=== PATIENT | male | born 1960 | race Caucasian/White ===

== ENCOUNTER 2018-06-28 14:36 | Observation (INO) | payer BC, SELFPAY ==
[2018-06-28] VITALS (11 sets, daily range): BP systolic 145–160; BP diastolic 75–99; PULSE 53–70; RESP 14–18; TEMP 36.2–36.8; O2SAT 96–99; BMI 31.7; BMI 33.0
--- NOTE | 2018-06-28 14:50 | CM.ED ---
SOCIAL WORK NOTE RESPONDED TO STROKE ALERT. PATIENT SITTING UP IN BED TALKING WITH PHYSICIAN AT THIS TIME. NO FAMILY PRESENT. THIS WORKER TO REMAIN AVAILABLE FOR NEEDS. 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
--- NOTE | 2018-06-28 14:57 | CT_ITS ---
STUDY: CT BRAIN WITHOUT CONTRAST REASON FOR EXAM: Male, 58 years old. Left-sided tinnitus and confusion. RADIATION DOSAGE (If Supplied By Facility): CTDIvol = ( 60.81 ) mGy, DLP = ( 1067.08 ) mGycm TECHNIQUE: Transaxial CT imaging of the brain was performed without administration of intravenous contrast material. Individualized dose optimization techniques were used for this CT. COMPARISON: No relevant priors. FINDINGS: Normal soft tissue structures. Normal calvarium. Normal size ventricles and extra-axial spaces for the patient's age. Normal white matter tracts of the cerebral hemispheres. Normal basal ganglia and thalami. Normal brainstem. Normal cerebellum. There is no intracranial hemorrhage. There are no findings of an acute ischemic infarction. Normal visualized paranasal sinuses. CT/Brain/Head without Contrast IMPRESSION: Normal unenhanced CT scan of the brain. N.B. : The above information has been verbally conveyed by Mo Franklin to Sandip Alan on 06/28/2018 15:27:34 (ET). Electronically Signed: Mo Franklin, at 15:28 EDT , Service support ,
--- NOTE | 2018-06-28 14:57 | EKG12_ITS ---
Test Reason : NEURO Blood Pressure : / mmHG Vent. Rate : 054 BPM Atrial Rate : 054 BPM P-R Int : 206 ms QRS Dur : 106 ms QT Int : 448 ms P-R-T Axes : 034 066 021 degrees QTc Int : 424 ms Sinus bradycardia Otherwise normal ECG Confirmed by RADU WELSH, MYKEL ([id number]), editor index LOLA MOFFETT ([id number]) on 07/01/2018 11:16:07 AM Referred By: WING Confirmed By:MYKEL LOVELACE MD
--- NOTE | 2018-06-28 14:58 | ED.VISSUMM ---
- ER Visit Summary Date of Service: 06/28/18 Chief Complaint: Difficulty speaking, numbness in right arm History of Present Illness: The patient is a 58 M with history of hypertension and coronary vascular disease presents to the emergency department with TIA symptoms. The patient states that he was at work this afternoon. He states that he noticed some numbness and tingling in his right hand and his arm. He states when he would move around it seemed to get better. Shortly thereafter, he had a sudden onset expressive aphasia. He states he knew what he wanted to say but was just having difficulty getting the words out. He states he had difficulty recognizing numbers. He was also having some ringing in his ears. He states he does have tinnitus at baseline, but states it was worse. He tried to follow with his primary care, but was referred to the emergency department. On arrival, the patient symptoms have basically resolved. He denies any prior history of stroke. He is otherwise been in his normal state of health. Physical Examination: Vital signs reviewed General: Well-nourished, well-developed Head: Normocephalic, atraumatic Eyes: Pupils equal and reactive, extraocular muscles intact Neck, supple, no lymphadenopathy Heart: Regular rate and rhythm Respiratory: No distress, clear bilaterally Abdomen: Soft, nontender, nondistended, no peritoneal signs Back: Nontender Extremities: Nontender, no edema, no cords Skin: Normal color no rash Neuro: Alert and oriented, no focal or lateralizing deficits Test Results: [] Emergency Department Course and Treatment: The patient has an NIH of 0 on arrival. However, his symptoms are concerning for TIA. His symptoms have totally resolved. Head CT was unremarkable. Chest x-ray was unremarkable. The patient is thrombocytopenic which does appear to be new, however the only labs I have are from 4 years ago. He denies history of alcohol abuse. He is not on any new medications. I am unsure of the etiology of his thrombus cytopenia. Given the patient's age, risk factors, and focal neurologic symptoms I do feel that he would benefit from a TIA workup. Patient was discussed with the hospitalist. Treatment Plan: [] Disposition: Admit Impression: 1. TIA 2. Expressive aphasia-resolved This note was generated with [employer] software. It may contain incorrect words, spelling, and punctuation that were not noted in review of the chart prior to signing ED Disposition - Plan for ED Patient: Referrals: Devika Arcos MD [Primary Care Provider] -
--- NOTE | 2018-06-28 15:15 | RAD_ITS ---
STUDY: X-RAY CHEST REASON FOR EXAM: Male, 58 years old. Headaches. Slurred speech. TECHNIQUE: Single AP portable view of the chest. COMPARISON: None. FINDINGS: EKG electrodes are seen. Hyperinflation. The lungs are clear. There is no demonstrated pleural abnormality. Normal size heart. Normal mediastinum and kyle. Normal visualized pulmonary arteries. There is atherosclerotic tortuosity of the aortic arch and descending thoracic aorta. There are diffuse degenerative changes of the visualized thoracic spine. Normal visualized ribs, clavicles, and shoulders. There is no demonstrated abnormality of the visualized soft tissue structures of the upper abdomen. RAD/Chest 1 View IMPRESSION: Normal x-ray examination of the chest. Electronically Signed: Mo Franklin, at 15:39 EDT , Service support ,
[2018-06-28 15:19] LABS: Anion Gap 5 (5-15); BUN 19 mg/dL (7-18); BUN/Creat Ratio 19.5 RATIO (10-20); Calcium,Total 9.1 mg/dL (8.5-10.1); Chloride 105 mmol/L (98-107); Creatinine, Serum 0.97 mg/dL (0.70-1.30); EST Glomerular Filtration Rate 84 mL/min (>60); Est Glom Filt Rate - Afr Amer 102 mL/min (>60); Estimated Creatinine Clearance 83.01 ml/min; Glucose 84 mg/dL (74-106); Potassium 3.8 mmol/L (3.5-5.1); Sodium Level 139 mmol/L (136-145)
[2018-06-28 15:50] LABS: Bedside Glucose 75 mg/dL (70-110)
[2018-06-28 15:50] LABS: Hematocrit 38.5 % (40-54); Hemoglobin 13.1 g/dl (13.0-16.5); Mean Corpuscular Hgb 29.7 pg (27.0-32.0); Mean Corpuscular Volume 87.3 fL (80-94); Mean Platelet Vol. 10.2 fl (6.2-12.0); Platelet Count 51 K/mm3 (150-450); RBC Distribution Width CV 13.3 % (11.6-14.6); RBC Distribution Width SD 42.7 fl (35.1-43.9); Red Blood Count 4.41 M/mm3 (4.6-6.2); White Blood Count 7.5 K/mm3 (4.4-11.0)
[2018-06-28 15:53] LABS: Scan Indicated on CBC? Y/N NO
[2018-06-28 16:03] LABS: Prothrombin Time (Protime)PT. 13.4 SECONDS (11.7-14.9)
[2018-06-28 16:04] LABS: Partial Thromboplast Time 26.1 Seconds (24.1-36.2)
--- NOTE | 2018-06-28 16:28 | PCM.HP.STD ---
<Toño Varela - Last Filed: 06/28/18 16:28> Problem List (1) CVA (cerebral vascular accident) Status: Acute (2) CAD (coronary artery disease) Status: Chronic (3) IBAN (obstructive sleep apnea) Status: Chronic (4) Thrombocytopenia Status: Chronic (5) Hyperlipidemia Status: Chronic (6) Hypertension Status: Chronic History of Present Illness Date of Admission: 06/28/18 Chief Complaint: tingling right arm The patient is a 58 year old M with pmhx of CAD with stents in , IBAN on CPAP qhs, HTN, HLD, tinnitus, who presented to the ER with chief complaint of tingling in his right arm. This began about 1300 today while out driving running errands. He felt tingling and numbness without weakness travel from his fingertips up his forearm to his mid bicep. He then drove to the pharmacy and was filling out a form of personal information and could not fill out the form. He wrote his name, and everything else he knew what he wanted to write but could not write it, and felt that the words and letters were jumping around. He also could not speak a full sentence, also reporting that he knew what he wanted to say but the words were not coming out correctly. He denied slurring. He had a mild APONTE located on top of his head. He denied dizziness. His tinnitus may be somewhat worse than normal. He denies weakness. He denies any other affected part of his body. While in the ER about 1413 his symptoms suddenly and completely resolved. No complaints at this time. [] Past Medical History Past Medical History (Chronic Problems): Chronic Problems (Last Reviewed 10/05/17 @ 10:16 by Alexus Downey) CAD (coronary artery disease) (Chronic) IBAN (obstructive sleep apnea) (Chronic) Thrombocytopenia (Chronic) Presence of stent in coronary artery (Chronic ~08/2008) PTCA/BMS to distal RCA 08/2008 @ [facility] Hyperlipidemia (Chronic) Atherosclerotic heart disease of [place] coronary artery without angina pectoris (Chronic) PTCA/BMS to distal RCA 08/2008 @ [facility] Hypertension (Chronic) Medical History: Medical History (Last Reviewed 10/05/17 @ 10:16 by Alexus Downey) Hyperlipidemia (Chronic) E78.5 Atherosclerotic heart disease of [place] coronary artery without angina pectoris (Chronic) I25.10 PTCA/BMS to distal RCA 08/2008 @ [facility] History of acute inferior wall myocardial infarction (Acute) I25.2 Hypertension (Chronic) I10 IBAN (obstructive sleep apnea) G47.33 Allergies No Known Allergies Allergy (Verified 06/28/18 14:39) Home Medications: Ambulatory Orders Medication Instructions Recorded aspirin 81 mg tablet,delayed 81 mg PO DAILY 09/04/17 release carvedilol 25 mg tablet 25 mg PO BID 09/04/17 Clopidogrel Bisulfate [Clopidogrel] 75 mg PO DAILY 06/28/18 Losartan/Hydrochlorothiazide 1 tab PO DAILY 06/28/18 [Losartan-Hctz 100-25 mg Tab] Surgical History: Surgical History (Last Reviewed 10/05/17 @ 10:16 by Alexus Downey) Presence of stent in coronary artery (Chronic) Onset Date: ~08/2008 Z95.5 PTCA/BMS to distal RCA 08/2008 @ [facility] Postsurgical percutaneous transluminal coronary angioplasty (PTCA) status Onset Date: ~08/2008 Z98.61 PTCA/BMS to distal RCA 08/2008 @ [facility] History of left knee surgery Z98.890 History of right knee surgery Z98.890 Surgical History: - - BL Knee arthroscopy, septoplasty Lives: With Family Smoking Status: Never smoker Tobacco Use: Non-smoker Alcohol: Occasional Drugs: None - *Family History Paternal Family History: Family History (Last Reviewed 10/05/17 @ 10:16 by Alexus Downey) Father CAD (coronary artery disease) Myocardial infarction, Onset Age: 42 Sister Hypertension History Items: Heart Disease Maternal Family History: Family History (Last Reviewed 10/05/17 @ 10:16 by Alexus Downey) Father CAD (coronary artery disease) Myocardial infarction, Onset Age: 42 Sister Hypertension History Items: Cancer - colon Review of Systems Constitutional: Denies: Chills, Fever, Weight Change Eyes: Denies: Blurred vision, Double vision HEENT: Reports: Head Aches, - - ringing in ears. Denies: Difficulty Swallowing, Hard of Hearing, Sinus Congestion, Sinus Drainage, Visual Changes Cardiovascular: Denies: Chest Pain, Palpitations Respiratory: Denies: Cough, Shortness of breath at rest, Sputum production Gastrointestinal: Denies: Abdominal Pain, Nausea, Vomiting Genitourinary: Denies: Dysuria Musculoskeletal: Denies: Joint Pain, Joint Tenderness Skin: Denies: Rash, Wounds Neurological: Reports: Change in Speech, Headaches, Numbness, Tingling, - - visual change - words jumping around, also new difficulty writing. Denies: Balance problems, Blurred vision, Double vision, Slurred speech, Confusion, Difficulty swallowing, Focal weakness, Incoordination, Tremor, Seizures Psychiatric: Denies: Anxiety, Depression, Homicidal Ideations, Suicidal Ideations Hematologic/ Lymphatic: Denies: Easy Bruising, Easy Bleeding VTE Information - Inpt Only VTE Present on Admission: No VTE Mechan Device Prophylaxis: None VTE Pharm Prophylaxis ordered?: Yes Patient Problems: Active and Suspected Problems (Last Reviewed 10/05/17 @ 10:16 by Alexus Downey) CVA (cerebral vascular accident) (Acute) Dysarthria (Acute) Paresthesia of right arm (Acute) - Physical Exam General: Alert, Oriented x3, Cooperative HEENT: Atraumatic, PERRLA, EOMI, Normocephalic Neck: Supple, No JVD, Negative Carotid Bruits Lungs: Clear to auscultation, Normal air movement Cardiovascular: Regular rate, No murmurs Abdomen: Bowel Sounds Present, Soft, Non Tender Extremities: No edema, Capillary Refill Less than 3 Seconds Skin: No rashes, No breakdown Musculoskeletal: No Tenderness to Palpation of Joints or Extremities Neurological: Cranial nerves II-XII grossly intact, - - 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 Psych/Mental Status: Normal Affect, Appropriate, Alert and oriented to time, place, person, mood and affect Vital Signs Temp Pulse Resp BP Pulse Ox 97.2 F L 55 L 16 154/99 H 98 06/28/18 14:36 06/28/18 16:00 06/28/18 16:00 06/28/18 16:00 06/28/18 16:00 Oxygen Delivery Method Room Air Weight: 215 lb Body Mass Index (BMI) 31.7 Finger Stick Blood Glucose 75 Laboratory Tests Past 24 Hrs 06/28/18 06/28/18 06/28/18 14:50 14:50 14:50 WBC Cancelled Corrected WBC Cancelled RBC Cancelled Hgb Cancelled Hct Cancelled MCV Cancelled MCH Cancelled MCHC Cancelled RDW Cancelled RDW Differential Cancelled Plt Count Cancelled MPV Cancelled Immature Gran % (Auto) Cancelled Neut % (Auto) Cancelled Lymph % (Auto) Cancelled [place] % (Auto) Cancelled Eos % (Auto) Cancelled Baso % (Auto) Cancelled Immature Gran # (Auto) Cancelled Absolute Neuts (auto) Cancelled Absolute Lymphs (auto) Cancelled Absolute Monos (auto) Cancelled Total Counted Cancelled Neutrophils % (Manual) Cancelled Band Neutrophils % Cancelled Lymphocytes % (Manual) Cancelled Monocytes % (Manual) Cancelled Eosinophils % (Manual) Cancelled Basophils % (Manual) Cancelled Metamyelocytes % Cancelled Myelocytes % Cancelled Promyelocytes % Cancelled Blast Cells % Cancelled Plasma Cell % (Manual) Cancelled Other Cells % Cancelled Lymphocytes # Cancelled Nucleated RBCs/100 WBC Cancelled Differential Comment Cancelled Diff Path Review Cancelled Hypersegmented Neuts Cancelled Atypical Lymphocytes Cancelled Reactive Lymphocytes Cancelled Smudge Cells Cancelled Eosinophilia # Cancelled Basophilia # Cancelled Toxic Granulation Cancelled Dohle Bodies Cancelled Johnny Rods Cancelled Platelet Estimate Cancelled Plt Morphology Comment Cancelled RBC Morphology Cancelled Polychromasia Cancelled Hypochromasia Cancelled Poikilocytosis Cancelled Basophilic Stippling Cancelled Anisocytosis Cancelled Microcytosis Cancelled Macrocytosis Cancelled Spherocytes Cancelled Sickle Cells Cancelled Target Cells Cancelled Tear Drop Cells Cancelled Ovalocytes Cancelled Stomatocytes Cancelled [place] Bodies Cancelled Jasmeet Cells Cancelled Bite Cells Cancelled Acanthocytes (Spur) Cancelled Rouleaux Cancelled Schistocytes Cancelled PT Cancelled INR Cancelled APTT Cancelled Sodium 139 Potassium 3.8 Chloride 105 Carbon Dioxide 29.0 Anion Gap 5 BUN 19 H Creatinine 0.97 Estim Creat Clear Calc 83.01 Est GFR (MDRD) Af Amer 102 Est GFR (MDRD) Non-Af 84 BUN/Creatinine Ratio 19.5 Glucose 84 Calcium 9.1 Troponin I < 0.015 06/28/18 06/28/18 15:40 15:40 WBC 7.5 Corrected WBC RBC 4.41 L Hgb 13.1 Hct 38.5 L MCV 87.3 MCH 29.7 MCHC 34.0 RDW 13.3 RDW Differential 42.7 Plt Count 51 L MPV 10.2 Immature Gran % (Auto) Neut % (Auto) Lymph % (Auto) [place] % (Auto) Eos % (Auto) Baso % (Auto) Immature Gran # (Auto) Absolute Neuts (auto) Absolute Lymphs (auto) Absolute Monos (auto) Total Counted Neutrophils % (Manual) Band Neutrophils % Lymphocytes % (Manual) Monocytes % (Manual) Eosinophils % (Manual) Basophils % (Manual) Metamyelocytes % Myelocytes % Promyelocytes % Blast Cells % Plasma Cell % (Manual) Other Cells % Lymphocytes # Nucleated RBCs/100 WBC Differential Comment Diff Path Review Hypersegmented Neuts Atypical Lymphocytes Reactive Lymphocytes Smudge Cells Eosinophilia # Basophilia # Toxic Granulation Dohle Bodies Johnny Rods Platelet Estimate Plt Morphology Comment RBC Morphology Polychromasia Hypochromasia Poikilocytosis Basophilic Stippling Anisocytosis Microcytosis Macrocytosis Spherocytes Sickle Cells Target Cells Tear Drop Cells Ovalocytes Stomatocytes G[place] Bodies Jasmeet Cells Bite Cells Acanthocytes (Spur) Rouleaux Schistocytes PT 13.4 INR 1.0 APTT 26.1 Sodium Potassium Chloride Carbon Dioxide Anion Gap BUN Creatinine Estim Creat Clear Calc Est GFR (MDRD) Af Amer Est GFR (MDRD) Non-Af BUN/Creatinine Ratio Glucose Calcium Troponin I POC Glucose 06/28/18 15:38 POC Glucose 75 Assessment/Plan All Active Problems (Last Reviewed 10/05/17 @ 10:16 by Alexus Downey) CVA (cerebral vascular accident) (Acute) Dysarthria (Acute) Paresthesia of right arm (Acute) History of acute inferior wall myocardial infarction (Acute) 1. CVA - concern for TIA, symptoms as above fully resolved at this time. CT brain negative. Obtain MRI, MRA head/neck. Echo in AM. Maintain on tele. Pt is already on aspirin and plavix. start statin. hold antihypertensives. PTOTST evals. 2. Thrombocytopenia - unclear etiology. obtain most recent labs from PCP. 3. CAD - stents in 11/01. on asa/plavix, coreg, losartan 4. HTN - as above. 5. IBAN - continue nightly CPAP 6. HLD - start statin. DVT ppx: lovenox -monitor platelets. This patient was seen by Toño Varela PA-C under the supervision of Dr. Shipley. <Dilip Shipley - Last Filed: 06/28/18 17:25> Problem List (1) Dysarthria Status: Acute (2) Paresthesia of right arm Status: Acute History of Present Illness Chief Complaint: right arm paresthesia. dysarthria The patient is a 58 year old M who was driving his car and after he got out of his car noticed that he was a right upper extremity. The numbness extended from his elbow to his fingers. Fingers involved were his third and fourth finger. He was able to shake it out and the symptoms resolved. Afterwards, patient was at work and just was not feeling well and just feeling off. 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 Went to sign himself into an urgent care center and just could not figure that out and so was sent to the emergency room. Symptoms have resolved. Patient underwent a stroke workup that was unremarkable. Patient is never had symptoms such as this in the past. [] Past Medical History Medical History: Medical History (Last Reviewed 06/28/18 @ 17:21 by Dilip Shipley DO) Hyperlipidemia (Chronic) E78.5 Atherosclerotic heart disease of [place] coronary artery without angina pectoris (Chronic) I25.10 PTCA/BMS to distal RCA 08/2008 @ [facility] History of acute inferior wall myocardial infarction (Acute) I25.2 Hypertension (Chronic) I10 IBAN (obstructive sleep apnea) G47.33 Allergies No Known Allergies Allergy (Verified 06/28/18 14:39) Surgical History: Surgical History (Last Reviewed 06/28/18 @ 17:21 by Dilip Shipley DO) Presence of stent in coronary artery (Chronic) Onset Date: ~08/2008 Z95.5 PTCA/BMS to distal RCA 08/2008 @ [facility] Postsurgical percutaneous transluminal coronary angioplasty (PTCA) status Onset Date: ~08/2008 Z98.61 PTCA/BMS to distal RCA 08/2008 @ [facility] History of left knee surgery Z98.890 History of right knee surgery Z98.890 Lives: With Family Smoking Status: Never smoker Tobacco Use: Non-smoker Alcohol: Occasional Drugs: None - *Family History Paternal Family History: Family History (Last Reviewed 06/28/18 @ 17:21 by Dilip Shipley DO) Father CAD (coronary artery disease) Myocardial infarction, Onset Age: 42 Sister Hypertension Maternal Family History: Family History (Last Reviewed 06/28/18 @ 17:21 by Dilip Shipley DO) Father CAD (coronary artery disease) Myocardial infarction, Onset Age: 42 Sister Hypertension Review of Systems Constitutional: Denies: Chills, Fever, Weight Change Eyes: Denies: Double vision HEENT: Reports: Head Aches, -. Denies: Difficulty Swallowing, Hard of Hearing, Sinus Congestion, Sinus Drainage, Visual Changes Cardiovascular: Denies: Chest Pain, Palpitations Respiratory: Denies: Cough, Shortness of breath at rest, Sputum production Gastrointestinal: Denies: Abdominal Pain, Nausea, Vomiting Genitourinary: Denies: Dysuria Musculoskeletal: Denies: Joint Pain, Joint Tenderness Skin: Denies: Rash, Wounds Neurological: Reports: Change in Speech, Headaches, Numbness, Tingling, -. Denies: Balance problems, Blurred vision, Double vision, Slurred speech, Confusion, Difficulty swallowing, Focal weakness, Incoordination, Tremor, Seizures Psychiatric: Denies: Anxiety, Depression, Homicidal Ideations, Suicidal Ideations Hematologic/ Lymphatic: Denies: Easy Bruising, Easy Bleeding VTE Information - Inpt Only VTE Present on Admission: No VTE Mechan Device Prophylaxis: SCD's VTE Pharm Prophylaxis ordered?: No - Physical Exam General: Alert, Cooperative, No apparent distress HEENT: Atraumatic, PERRLA, EOMI, Normocephalic Oral: Moist Mucosa, No Gingival or Mucosal Lesions/ Ulcerations Neck: No Nodes, Thyroid Normal Size and Texture Lungs: Clear to auscultation, Normal air movement, No rhonchi, No wheeze Cardiovascular: Regular rate, Regular Rhythm, Normal S1, Normal S2, No murmurs Abdomen: Bowel Sounds Present, Soft, Non Tender, Non-Distended Extremities: No edema, No Calf Tenderness Skin: No rashes, No breakdown Musculoskeletal: No Tenderness to Palpation of Joints or Extremities, No Muscle Wasting Neurological: Cranial nerves II-XII grossly intact, Motor Exam 5/5 strength throughout, Coordination normal, - Psych/Mental Status: Normal Affect, Appropriate, Alert and oriented to time, place, person, mood and affect Vital Signs Temp Pulse Resp BP Pulse Ox 36.2 C L 55 L 16 154/99 H 98 06/28/18 14:36 06/28/18 16:00 06/28/18 16:00 06/28/18 16:00 06/28/18 16:00 Oxygen Delivery Method Room Air Weight: 97.522 kg Body Mass Index (BMI) 31.7 Finger Stick Blood Glucose 75 Laboratory Tests Past 24 Hrs 06/28/18 06/28/18 06/28/18 14:50 14:50 14:50 WBC Cancelled Corrected WBC Cancelled RBC Cancelled Hgb Cancelled Hct Cancelled MCV Cancelled MCH Cancelled MCHC Cancelled RDW Cancelled RDW Differential Cancelled Plt Count Cancelled MPV Cancelled Immature Gran % (Auto) Cancelled Neut % (Auto) Cancelled Lymph % (Auto) Cancelled [place] % (Auto) Cancelled Eos % (Auto) Cancelled Baso % (Auto) Cancelled Immature Gran # (Auto) Cancelled Absolute Neuts (auto) Cancelled Absolute Lymphs (auto) Cancelled Absolute Monos (auto) Cancelled Total Counted Cancelled Neutrophils % (Manual) Cancelled Band Neutrophils % Cancelled Lymphocytes % (Manual) Cancelled Monocytes % (Manual) Cancelled Eosinophils % (Manual) Cancelled Basophils % (Manual) Cancelled Metamyelocytes % Cancelled Myelocytes % Cancelled Promyelocytes % Cancelled Blast Cells % Cancelled Plasma Cell % (Manual) Cancelled Other Cells % Cancelled Lymphocytes # Cancelled Nucleated RBCs/100 WBC Cancelled Differential Comment Cancelled Diff Path Review Cancelled Hypersegmented Neuts Cancelled Atypical Lymphocytes Cancelled Reactive Lymphocytes Cancelled Smudge Cells Cancelled Eosinophilia # Cancelled Basophilia # Cancelled Toxic Granulation Cancelled Dohle Bodies Cancelled Johnny Rods Cancelled Platelet Estimate Cancelled Plt Morphology Comment Cancelled RBC Morphology Cancelled Polychromasia Cancelled Hypochromasia Cancelled Poikilocytosis Cancelled Basophilic Stippling Cancelled Anisocytosis Cancelled Microcytosis Cancelled Macrocytosis Cancelled Spherocytes Cancelled Sickle Cells Cancelled Target Cells Cancelled Tear Drop Cells Cancelled Ovalocytes Cancelled Stomatocytes Cancelled [place] Bodies Cancelled [place] Cells Cancelled Bite Cells Cancelled Acanthocytes (Spur) Cancelled Rouleaux Cancelled Schistocytes Cancelled PT Cancelled INR Cancelled APTT Cancelled Sodium 139 Potassium 3.8 Chloride 105 Carbon Dioxide 29.0 Anion Gap 5 BUN 19 H Creatinine 0.97 Estim Creat Clear Calc 83.01 Est GFR (MDRD) Af Amer 102 Est GFR (MDRD) Non-Af 84 BUN/Creatinine Ratio 19.5 Glucose 84 Calcium 9.1 Troponin I < 0.015 04/05/19 04/05/19 15:40 15:40 WBC 7.5 Corrected WBC RBC 4.41 L Hgb 13.1 Hct 38.5 L MCV 87.3 MCH 29.7 MCHC 34.0 RDW 13.3 RDW Differential 42.7 Plt Count 51 L MPV 10.2 Immature Gran % (Auto) Neut % (Auto) Lymph % (Auto) [place] % (Auto) Eos % (Auto) Baso % (Auto) Immature Gran # (Auto) Absolute Neuts (auto) Absolute Lymphs (auto) Absolute Monos (auto) Total Counted Neutrophils % (Manual) Band Neutrophils % Lymphocytes % (Manual) Monocytes % (Manual) Eosinophils % (Manual) Basophils % (Manual) Metamyelocytes % Myelocytes % Promyelocytes % Blast Cells % Plasma Cell % (Manual) Other Cells % Lymphocytes # Nucleated RBCs/100 WBC Differential Comment Diff Path Review Hypersegmented Neuts Atypical Lymphocytes Reactive Lymphocytes Smudge Cells Eosinophilia # Basophilia # Toxic Granulation Dohle Bodies Johnny Rods Platelet Estimate Plt Morphology Comment RBC Morphology Polychromasia Hypochromasia Poikilocytosis Basophilic Stippling Anisocytosis Microcytosis Macrocytosis Spherocytes Sickle Cells Target Cells Tear Drop Cells Ovalocytes Stomatocytes G[place] Bodies Jasmeet Cells Bite Cells Acanthocytes (Spur) Rouleaux Schistocytes PT 13.4 INR 1.0 APTT 26.1 Sodium Potassium Chloride Carbon Dioxide Anion Gap BUN Creatinine Estim Creat Clear Calc Est GFR (MDRD) Af Amer Est GFR (MDRD) Non-Af BUN/Creatinine Ratio Glucose Calcium Troponin I POC Glucose 06/28/18 15:38 POC Glucose 75 Clinical Impression(s) from Imaging Studies Brain CT 06/28/18 14:57 IMPRESSION: Normal unenhanced CT scan of the brain. N.B. : The above information has been verbally conveyed by Mo Franklin to Sandip Alan on 06/28/2018 15:27:34 (ET). Electronically Signed: Mo Franklin, at 15:28 EDT , Service support , ADDENDUM: 06/28/18 [id number] IMPRESSION: Normal unenhanced CT scan of the brain. N.B. : The above information has been verbally conveyed by Mo Franklin to Sandip Alan on 06/28/2018 15:27:34 (ET). Electronically Signed: Mo Rigoberto, at 15:28 EDT , Service support , Chest X-Ray 06/28/18 15:15 IMPRESSION: Normal x-ray examination of the chest. Electronically Signed: Mo Rigoberto, at 15:39 EDT , Service support , Assessment/Plan Patient seen and examined independently. Data reviewed. I agree with the above note by the physician equal opportunity assistant. 1. Right arm paresthesias and expressive aphasia: Given the patient's history of coronary artery disease with stent, patient will undergo a stroke workup to evaluate for TIA or stroke. That included MRI of the brain, MRA of the head and neck, echocardiogram, and occupational therapy evaluate and treat. Concern is that the patient may have had an ulnar neuropathy from resting his elbow on the center console of his car and then may have just felt off due to the fact that he had not eaten but for a very small amount for breakfast, drinking no water and drink 4 cups of coffee while he was running around at work. 2. Thrombocytopenia: Unclear etiology. Monitor with lab work. May require a hematology evaluation as outpatient. Doubt TTP. 3. DVT prophylaxis with SCDs. Code Visit OBSV E&M: 42527 Initial observation care L3
--- NOTE | 2018-06-28 16:35 | HP.PCM_ITS ---
<Toño Varela - Last Filed: 06/28/18 16:28> Problem List (1) CVA (cerebral vascular accident) Status: Acute (2) CAD (coronary artery disease) Status: Chronic (3) IBAN (obstructive sleep apnea) Status: Chronic (4) Thrombocytopenia Status: Chronic (5) Hyperlipidemia Status: Chronic (6) Hypertension Status: Chronic History of Present Illness Date of Admission: 06/28/18 Chief Complaint: tingling right arm The patient is a 58 year old M with pmhx of CAD with stents in , IBAN on CPAP qhs, HTN, HLD, tinnitus, who presented to the ER with chief complaint of tingling in his right arm. This began about 1300 today while out driving running errands. He felt tingling and numbness without weakness travel from his fingertips up his forearm to his mid bicep. He then drove to the pharmacy and was filling out a form of personal information and could not fill out the form. He wrote his name, and everything else he knew what he wanted to write but could not write it, and felt that the words and letters were jumping around. He also could not speak a full sentence, also reporting that he knew what he wanted to say but the words were not coming out correctly. He denied slurring. He had a mild APONTE located on top of his head. He denied dizziness. His tinnitus may be somewhat worse than normal. He denies weakness. He denies any other affected part of his body. While in the ER about 1413 his symptoms suddenly and comple tely resolved. No complaints at this time. [] Past Medical History Past Medical History (Chronic Problems): Chronic Problems (Last Reviewed 10/05/17 @ 10:16 by Alexus Downey) CAD (coronary artery disease) (Chronic) IBAN (obstructive sleep apnea) (Chronic) Thrombocytopenia (Chronic) Presence of stent in coronary artery (Chronic ~08/2008) PTCA/BMS to distal RCA 08/2008 @ [facility] Hyperlipidemia (Chronic) Atherosclerotic heart disease of tribe coronary artery without angina pectoris (Chronic) PTCA/BMS to distal RCA 08/2008 @ [facility] Hypertension (Chronic) Medical History: Medical History (Last Reviewed 10/05/17 @ 10:16 by Alexus Downey) Hyperlipidemia (Chronic) E78.5 Atherosclerotic heart disease of tribe coronary artery without angina pectoris (Chronic) I25.10 PTCA/BMS to distal RCA 08/2008 @ [facility] History of acute inferior wall myocardial infarction (Acute) I25.2 Hypertension (Chronic) I10 IBAN (obstructive sleep apnea) G47.33 Allergies No Known Allergies Allergy (Verified 06/28/18 14:39) Home Medications: Ambulatory Orders Medication Instructions Recorded aspirin 81 mg tablet,delayed 81 mg PO DAILY 09/04/17 release carvedilol 25 mg tablet 25 mg PO BID 09/04/17 Clopidogrel Bisulfate [Clopidogrel] 75 mg PO DAILY 06/28/18 Losartan/Hydrochlorothiazide 1 tab PO DAILY 06/28/18 [Losartan-Hctz 100-25 mg Tab] Surgical History: Surgical History (Last Reviewed 10/05/17 @ 10:16 by Alexus Downey) Presence of stent in coronary artery (Chronic) Onset Date: ~08/2008 Z95.5 PTCA/BMS to distal RCA 08/2008 @ [facility] Postsurgical percutaneous transluminal coronary angioplasty (PTCA) status Onset Date: ~08/2008 Z98.61 PTCA/BMS to distal RCA 08/2008 @ [facility] History of left knee surgery Z98.890 History of right knee surgery Z98.890 Surgical History: - - BL Knee arthroscopy, septoplasty Lives: With Family Smoking Status: Never smoker Tobacco Use: Non-smoker Alcohol: Occasional Drugs: None - *Family History Paternal Family History: Family History (Last Reviewed 10/05/17 @ 10:16 by Alexus Downey) Father CAD (coronary artery disease) Myocardial infarction, Onset Age: 42 Sister Hypertension History Items: Heart Disease Maternal Family History: Family History (Last Reviewed 10/05/17 @ 10:16 by Alexus Downey) Father CAD (coronary artery disease) Myocardial infarction, Onset Age: 42 Sister Hypertension History Items: Cancer - colon Review of Systems Constitutional: Denies: Chills, Fever, Weight Change Eyes: Denies: Blurred vision, Double vision HEENT: Reports: Head Aches, - - ringing in ears. Denies: Difficulty Swallowing, Hard of Hearing, Sinus Congestion, Sinus Drainage, Visual Changes Cardiovascular: Denies: Chest Pain, Palpitations Respiratory: Denies: Cough, Shortness of breath at rest, Sputum production Gastrointestinal: Denies: Abdominal Pain, Nausea, Vomiting Genitourinary: Denies: Dysuria Musculoskeletal: Denies: Joint Pain, Joint Tenderness Skin: Denies: Rash, Wounds Neurological: Reports: Change in Speech, Headaches, Numbness, Tingling, - - visual change - words jumping around, also new difficulty writing. Denies: Balance problems, Blurred vision, Double vision, Slurred speech, Confusion, Difficulty swallowing, Focal weakness, Incoordination, Tremor, Seizures Psychiatric: Denies: Anxiety, Depression, Homicidal Ideations, Suicidal Ideations Hematologic/ Lymphatic: Denies: Easy Bruising, Easy Bleeding VTE Information - Inpt Only VTE Present on Admission: No VTE Mechan Device Prophylaxis: None VTE Pharm Prophylaxis ordered?: Yes Patient Problems: Active and Suspected Problems (Last Reviewed 10/05/17 @ 10:16 by Alexus Downey) CVA (cerebral vascular accident) (Acute) Dysarthria (Acute) Paresthesia of right arm (Acute) - Physical Exam General: Alert, Oriented x3, Cooperative HEENT: Atraumatic, PERRLA, EOMI, Normocephalic Neck: Supple, No JVD, Negative Carotid Bruits Lungs: Clear to auscultation, Normal air movement Cardiovascular: Regular rate, No murmurs Abdomen: Bowel Sounds Present, Soft, Non Tender Extremities: No edema, Capillary Refill Less than 3 Seconds Skin: No rashes, No breakdown Musculoskeletal: No Tenderness to Palpation of Joints or Extremities Neurological: Cranial nerves II-XII grossly intact, - - good spoon maker strength, no weakness in RUE, sensation intact BL. Psych/Mental Status: Normal Affect, Appropriate, Alert and oriented to time, place, person, mood and affect Vital Signs Temp Pulse Resp BP Pulse Ox 97.2 F L 55 L 16 154/99 H 98 06/28/18 14:36 06/28/18 16:00 06/28/18 16:00 06/28/18 16:00 06/28/18 16:00 Oxygen Delivery Method Room Air Weight: 215 lb Body Mass Index (BMI) 31.7 Finger Stick Blood Glucose 75 Laboratory Tests Past 24 Hrs 06/28/18 06/28/18 06/28/18 14:50 14:50 14:50 WBC Cancelled Corrected WBC Cancelled RBC Cancelled Hgb Cancelled Hct Cancelled MCV Cancelled MCH Cancelled MCHC Cancelled RDW Cancelled RDW Differential Cancelled Plt Count Cancelled MPV Cancelled Immature Gran % (Auto) Cancelled Neut % (Auto) Cancelled Lymph % (Auto) Cancelled [place] % (Auto) Cancelled Eos % (Auto) Cancelled Baso % (Auto) Cancelled Immature Gran # (Auto) Cancelled Absolute Neuts (auto) Cancelled Absolute Lymphs (auto) Cancelled Absolute Monos (auto) Cancelled Total Counted Cancelled Neutrophils % (Manual) Cancelled Band Neutrophils % Cancelled Lymphocytes % (Manual) Cancelled Monocytes % (Manual) Cancelled Eosinophils % (Manual) Cancelled Basophils % (Manual) Cancelled Metamyelocytes % Cancelled Myelocytes % Cancelled Promyelocytes % Cancelled Blast Cells % Cancelled Plasma Cell % (Manual) Cancelled Other Cells % Cancelled Lymphocytes # Cancelled Nucleated RBCs/100 WBC Cancelled Differential Comment Cancelled Diff Path Review Cancelled Hypersegmented Neuts Cancelled Atypical Lymphocytes Cancelled Reactive Lymphocytes Cancelled Smudge Cells Cancelled Eosinophilia # Cancelled Basophilia # Cancelled Toxic Granulation Cancelled Dohle Bodies Cancelled Johnny Rods Cancelled Platelet Estimate Cancelled Plt Morphology Comment Cancelled RBC Morphology Cancelled Polychromasia Cancelled Hypochromasia Cancelled Poikilocytosis Cancelled Basophilic Stippling Cancelled Anisocytosis Cancelled Microcytosis Cancelled Macrocytosis Cancelled Spherocytes Cancelled Sickle Cells Cancelled Target Cells Cancelled Tear Drop Cells Cancelled Ovalocytes Cancelled Stomatocytes Cancelled [place] Bodies Cancelled Jasmeet Cells Cancelled Bite Cells Cancelled Acanthocytes (Spur) Cancelled Rouleaux Cancelled Schistocytes Cancelled PT Cancelled INR Cancelled APTT Cancelled Sodium 139 Potassium 3.8 Chloride 105 Carbon Dioxide 29.0 Anion Gap 5 BUN 19 H Creatinine 0.97 Estim Creat Clear Calc 83.01 Est GFR (MDRD) Af Amer 102 Est GFR (MDRD) Non-Af 84 BUN/Creatinine Ratio 19.5 Glucose 84 Calcium 9.1 Troponin I < 0.015 06/28/18 06/28/18 15:40 15:40 WBC 7.5 Corrected WBC RBC 4.41 L Hgb 13.1 Hct 38.5 L MCV 87.3 MCH 29.7 MCHC 34.0 RDW 13.3 RDW Differential 42.7 Plt Count 51 L MPV 10.2 Immature Gran % (Auto) Neut % (Auto) Lymph % (Auto) [place] % (Auto) Eos % (Auto) Baso % (Auto) Immature Gran # (Auto) Absolute Neuts (auto) Absolute Lymphs (auto) Absolute Monos (auto) Total Counted Neutrophils % (Manual) Band Neutrophils % Lymphocytes % (Manual) Monocytes % (Manual) Eosinophils % (Manual) Basophils % (Manual) Metamyelocytes % Myelocytes % Promyelocytes % Blast Cells % Plasma Cell % (Manual) Other Cells % Lymphocytes # Nucleated RBCs/100 WBC Differential Comment Diff Path Review Hypersegmented Neuts Atypical Lymphocytes Reactive Lymphocytes Smudge Cells Eosinophilia # Basophilia # Toxic Granulation Dohle Bodies Johnny Rods Platelet Estimate Plt Morphology Comment RBC Morphology Polychromasia Hypochromasia Poikilocytosis Basophilic Stippling Anisocytosis Microcytosis Macrocytosis Spherocytes Sickle Cells Target Cells Tear Drop Cells Ovalocytes Stomatocytes [place] Bodies [place] Cells Bite Cells Acanthocytes (Spur) Rouleaux Schistocytes PT 13.4 INR 1.0 APTT 26.1 Sodium Potassium Chloride Carbon Dioxide Anion Gap BUN Creatinine Estim Creat Clear Calc Est GFR (MDRD) Af Amer Est GFR (MDRD) Non-Af BUN/Creatinine Ratio Glucose Calcium Troponin I POC Glucose 06/28/18 15:38 POC Glucose 75 Assessment/Plan All Active Problems (Last Reviewed 10/05/17 @ 10:16 by Alexus Downey) CVA (cerebral vascular accident) (Acute) Dysarthria (Acute) Paresthesia of right arm (Acute) History of acute inferior wall myocardial infarction (Acute) 1. CVA - concern for TIA, symptoms as above fully resolved at this time. CT brain negative. Obtain MRI, MRA head/neck. Echo in AM. Maintain on tele. Pt is already on aspirin and plavix. start statin. hold antihypertensives. PTOTST evals. 2. Thrombocytopenia - unclear etiology. obtain most recent labs from PCP. 3. CAD - stents in 11/01. on asa/plavix, coreg, losartan 4. HTN - as above. 5. IBAN - continue nightly CPAP 6. HLD - start statin. DVT ppx: lovenox -monitor platelets. This patient was seen by Toño Varela PA-C under the supervision of Dr. Shipley. <Dilip Shipley - Last Filed: 06/28/18 17:25> Problem List (1) Dysarthria Status: Acute (2) Paresthesia of right arm Status: Acute History of Present Illness Chief Complaint: right arm paresthesia. dysarthria The patient is a 58 year old M who was driving his car and after he got out of his car noticed that he was a right upper extremity. The numbness extended from his elbow to his fingers. Fingers involved were his third and fourth finger. He was able to shake it out and the symptoms resolved. Afterwards, patient was at work and just was not feeling well and just feeling off. 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 Went to sign himself into an urgent care center and just could not figure that out and so was sent to the emergency room. Symptoms have resolved. Patient underwent a stroke workup that was unremarkable. Patient is never had symptoms such as this in the past. [] Past Medical History Medical History: Medical History (Last Reviewed 06/28/18 @ 17:21 by Dilip Shipley DO) Hyperlipidemia (Chronic) E78.5 Atherosclerotic heart disease of tribe coronary artery without angina pectoris (Chronic) I25.10 PTCA/BMS to distal RCA 08/2008 @ [facility] History of acute inferior wall myocardial infarction (Acute) I25.2 Hypertension (Chronic) I10 IBAN (obstructive sleep apnea) G47.33 Allergies No Known Allergies Allergy (Verified 06/28/18 14:39) Surgical History: Surgical History (Last Reviewed 06/28/18 @ 17:21 by Dilip Shipley DO) Presence of stent in coronary artery (Chronic) Onset Date: ~08/2008 Z95.5 PTCA/BMS to distal RCA 08/2008 @ [facility] Postsurgical percutaneous transluminal coronary angioplasty (PTCA) status Onset Date: ~08/2008 Z98.61 PTCA/BMS to distal RCA 08/2008 @ [facility] History of left knee surgery Z98.890 History of right knee surgery Z98.890 Lives: With Family Smoking Status: Never smoker Tobacco Use: Non-smoker Alcohol: Occasional Drugs: None - *Family History Paternal Family History: Family History (Last Reviewed 06/28/18 @ 17:21 by Dilip Shipley DO) Father CAD (coronary artery disease) Myocardial infarction, Onset Age: 42 Sister Hypertension Maternal Family History: Family History (Last Reviewed 06/28/18 @ 17:21 by Dilip Shipley DO) Father CAD (coronary artery disease) Myocardial infarction, Onset Age: 42 Sister Hypertension Review of Systems Constitutional: Denies: Chills, Fever, Weight Change Eyes: Denies: Double vision HEENT: Reports: Head Aches, -. Denies: Difficulty Swallowing, Hard of Hearing, Sinus Congestion, Sinus Drainage, Visual Changes Cardiovascular: Denies: Chest Pain, Palpitations Respiratory: Denies: Cough, Shortness of breath at rest, Sputum production Gastrointestinal: Denies: Abdominal Pain, Nausea, Vomiting Genitourinary: Denies: Dysuria Musculoskeletal: Denies: Joint Pain, Joint Tenderness Skin: Denies: Rash, Wounds Neurological: Reports: Change in Speech, Headaches, Numbness, Tingling, -. Denies: Balance problems, Blurred vision, Double vision, Slurred speech, Confusion, Difficulty swallowing, Focal weakness, Incoordination, Tremor, Seizures Psychiatric: Denies: Anxiety, Depression, Homicidal Ideations, Suicidal Ideat ions Hematologic/ Lymphatic: Denies: Easy Bruising, Easy Bleeding VTE Information - Inpt Only VTE Present on Admission: No VTE Mechan Device Prophylaxis: SCD's VTE Pharm Prophylaxis ordered?: No - Physical Exam General: Alert, Cooperative, No apparent distress HEENT: Atraumatic, PERRLA, EOMI, Normocephalic Oral: Moist Mucosa, No Gingival or Mucosal Lesions/ Ulcerations Neck: No Nodes, Thyroid Normal Size and Texture Lungs: Clear to auscultation, Normal air movement, No rhonchi, No wheeze Cardiovascular: Regular rate, Regular Rhythm, Normal S1, Normal S2, No murmurs Abdomen: Bowel Sounds Present, Soft, Non Tender, Non-Distended Extremities: No edema, No Calf Tenderness Skin: No rashes, No breakdown Musculoskeletal: No Tenderness to Palpation of Joints or Extremities, No Muscle Wasting Neurological: Cranial nerves II-XII grossly intact, Motor Exam 5/5 strength throughout, Coordination normal, - Psych/Mental Status: Normal Affect, Appropriate, Alert and oriented to time, place, person, mood and affect Vital Signs Temp Pulse Resp BP Pulse Ox 36.2 C L 55 L 16 154/99 H 98 06/28/18 14:36 06/28/18 16:00 06/28/18 16:00 06/28/18 16:00 06/28/18 16:00 Oxygen Delivery Method Room Air Weight: 97.522 kg Body Mass Index (BMI) 31.7 Finger Stick Blood Glucose 75 Laboratory Tests Past 24 Hrs 06/28/18 06/28/18 06/28/18 14:50 14:50 14:50 WBC Cancelled Corrected WBC Cancelled RBC Cancelled Hgb Cancelled Hct Cancelled MCV Cancelled MCH Cancelled MCHC Cancelled RDW Cancelled RDW Differential Cancelled Plt Count Cancelled MPV Cancelled Immature Gran % (Auto) Cancelled Neut % (Auto) Cancelled Lymph % (Auto) Cancelled [place] % (Auto) Cancelled Eos % (Auto) Cancelled Baso % (Auto) Cancelled Immature Gran # (Auto) Cancelled Absolute Neuts (auto) Cancelled Absolute Lymphs (auto) Cancelled Absolute Monos (auto) Cancelled Total Counted Cancelled Neutrophils % (Manual) Cancelled Band Neutrophils % Cancelled Lymphocytes % (Manual) Cancelled Monocytes % (Manual) Cancelled Eosinophils % (Manual) Cancelled Basophils % (Manual) Cancelled Metamyelocytes % Cancelled Myelocytes % Cancelled Promyelocytes % Cancelled Blast Cells % Cancelled Plasma Cell % (Manual) Cancelled Other Cells % Cancelled Lymphocytes # Cancelled Nucleated RBCs/100 WBC Cancelled Differential Comment Cancelled Diff Path Review Cancelled Hypersegmented Neuts Cancelled Atypical Lymphocytes Cancelled Reactive Lymphocytes Cancelled Smudge Cells Cancelled Eosinophilia # Cancelled Basophilia # Cancelled Toxic Granulation Cancelled Dohle Bodies Cancelled Johnny Rods Cancelled Platelet Estimate Cancelled Plt Morphology Comment Cancelled RBC Morphology Cancelled Polychromasia Cancelled Hypochromasia Cancelled Poikilocytosis Cancelled Basophilic Stippling Cancelled Anisocytosis Cancelled Microcytosis Cancelled Macrocytosis Cancelled Spherocytes Cancelled Sickle Cells Cancelled Target Cells Cancelled Tear Drop Cells Cancelled Ovalocytes Cancelled Stomatocytes Cancelled [place] Bodies Cancelled Jasmeet Cells Cancelled Bite Cells Cancelled Acanthocytes (Spur) Cancelled Rouleaux Cancelled Schistocytes Cancelled PT Cancelled INR Cancelled APTT Cancelled Sodium 139 Potassium 3.8 Chloride 105 Carbon Dioxide 29.0 Anion Gap 5 BUN 19 H Creatinine 0.97 Estim Creat Clear Calc 83.01 Est GFR (MDRD) Af Amer 102 Est GFR (MDRD) Non-Af 84 BUN/Creatinine Ratio 19.5 Glucose 84 Calcium 9.1 Troponin I < 0.015 06/28/18 06/28/18 15:40 15:40 WBC 7.5 Corrected WBC RBC 4.41 L Hgb 13.1 Hct 38.5 L MCV 87.3 MCH 29.7 MCHC 34.0 RDW 13.3 RDW Differential 42.7 Plt Count 51 L MPV 10.2 Immature Gran % (Auto) Neut % (Auto) Lymph % (Auto) [place] % (Auto) Eos % (Auto) Baso % (Auto) Immature Gran # (Auto) Absolute Neuts (auto) Absolute Lymphs (auto) Absolute Monos (auto) Total Counted Neutrophils % (Manual) Band Neutrophils % Lymphocytes % (Manual) Monocytes % (Manual) Eosinophils % (Manual) Basophils % (Manual) Metamyelocytes % Myelocytes % Promyelocytes % Blast Cells % Plasma Cell % (Manual) Other Cells % Lymphocytes # Nucleated RBCs/100 WBC Differential Comment Diff Path Review Hypersegmented Neuts Atypical Lymphocytes Reactive Lymphocytes Smudge Cells Eosinophilia # Basophilia # Toxic Granulation Dohle Bodies Johnny Rods Platelet Estimate Plt Morphology Comment RBC Morphology Polychromasia Hypochromasia Poikilocytosis Basophilic Stippling Anisocytosis Microcytosis Macrocytosis Spherocytes Sickle Cells Target Cells Tear Drop Cells Ovalocytes Stomatocytes [place] Bodies Jasmeet Cells Bite Cells Acanthocytes (Spur) Rouleaux Schistocytes PT 13.4 INR 1.0 APTT 26.1 Sodium Potassium Chloride Carbon Dioxide Anion Gap BUN Creatinine Estim Creat Clear Calc Est GFR (MDRD) Af Amer Est GFR (MDRD) Non-Af BUN/Creatinine Ratio Glucose Calcium Troponin I POC Glucose 06/28/18 15:38 POC Glucose 75 Clinical Impression(s) from Imaging Studies Brain CT 06/28/18 14:57 IMPRESSION: Normal unenhanced CT scan of the brain. N.B. : The above information has been verbally conveyed by Mo Franklin to Sandip Alan on 06/28/2018 15:27:34 (ET). Electronically Signed: Mo Franklin, at 15:28 EDT , Service support , ADDENDUM: 06/28/18 1535 IMPRESSION: Normal unenhanced CT scan of the brain. N.B. : The above information has been verbally conveyed by Mo Franklin to Sandip Alan on 06/28/2018 15:27:34 (ET). Electronically Signed: Mo Rigoberto, at 15:28 EDT , Service support , Chest X-Ray 06/28/18 15:15 IMPRESSION: Normal x-ray examination of the chest. Electronically Signed: Mo Rigoberto, at 15:39 EDT , Service support , Assessment/Plan Patient seen and examined independently. Data reviewed. I agree with the above note by the physician assistant operator. 1. Right arm paresthesias and expressive aphasia: Given the patient's history of coronary artery disease with stent, patient will undergo a stroke workup to evaluate for TIA or stroke. That included MRI of the brain, MRA of the head and neck, echocardiogram, and occupational therapy evaluate and treat. Concern is that the patient may have had an ulnar neuropathy from resting his elbow on the center console of his car and then may have just felt off due to the fact that he had not eaten but for a very small amount for breakfast, drinking no water and drink 4 cups of coffee while he was running around at work. 2. Thrombocytopenia: Unclear etiology. Monitor with lab work. May require a hematology evaluation as outpatient. Doubt TTP. 3. DVT prophylaxis with SCDs. Code Visit OBSV E&M: 08606 Initial observation care L3
--- NOTE | 2018-06-28 17:16 | MRI_ITS ---
HISTORY: TIA. Dysarthria, RIGHT arm N/T. Resolved now EXAMINATION: MRA Neck WO/W Contrast TECHNIQUE: Routine carotid MR angiogram protocol was performed. 3D reconstructions were reviewed. Nascet criteria using the distal ICAs for comparison were used for evaluation of stenoses. IV Contrast dosage and agent: 20 cc Dotarem COMPARISON: None FINDINGS: AORTIC ARCH AND BRANCHES: No significant stenosis at the visualized portions. RIGHT CCA: No occlusion, significant stenosis or dissection. RIGHT ICA: No occlusion, significant stenosis or dissection. LEFT CCA: No occlusion, significant stenosis or dissection. LEFT ICA: No occlusion, significant stenosis or dissection. RIGHT VERTEBRAL ARTERY: No occlusion, significant stenosis or dissection. LEFT VERTEBRAL ARTERY: No occlusion, significant stenosis or dissection. No evidence of acute injury of the major arterial system of the neck. No evidence of occlusion at the visualized portions of the major arterial system of the head. MRI/MRA Neck WITH and W/O Contrast IMPRESSION: Unremarkable MRA neck. at 2037 Reported and signed by: Radames Owens MD Electronically Signed: Radames Owens, at 20:36 EDT Tel , Service support ,
--- NOTE | 2018-06-28 17:16 | ECHOCS_ITS ---
Reason For Study: TIA/CVA Procedure This was a 2D Doppler, Color Flow transthoracic echocardiogram. Contrast injection was performed. Exam performed portable in patient room. Left Ventricle Normal LV size. Left ventricular systolic function is normal. The estimated ejection fraction is 60 %. Stage 1 diastolic dysfunction. No regional wall motion abnormalities noted. Right Ventricle Normal RV size. Normal systolic function. Atria Normal left atrium. Normal right atrium. Mitral Valve Normal mitral valve. Tricuspid Valve Normal tricuspid valve. Aortic Valve The aortic valve is not well visualized. Pulmonic Valve Normal pulmonic valve. Great Vessels Normal aortic root. The pulmonary artery is normal size. Normal inferior vena cava. Pericardium/Pleural No pericardial effusion. Medication Diluted definity 3ml given slow IV push to enhance endocardial definition. Performed a rapid injection of agitated mix of 9 cc saline and 1cc air to assess for atrial septal defect. MMode/2D Measurements & Calculations LVIDd: 4.8 cm IVSd: 1.1 cm Ao root diam: 3.3 cm LVIDs: 3.2 cm LVPWd: 1.1 cm RVDd: 4.0 cm FS: 33.6 % LAV(MOD-bp): 57.1 ml LA A4 area: 19.0 cm2 LA dimension(2D): 4.2 cm LAV(MOD-bp) Indexed: 26.6 ml/m2 LAV(MOD-sp2): 60.7 ml LAV(MOD-sp4): 52.1 ml RA A4 area: 16.6 cm2 Time Measurements MV dec time: 0.20 sec Doppler Measurements & Calculations MV E max manjit: 58.8 cm/sec Lat Peak E' Manjit: 8.8 cm/sec Med Peak E' Manjit: 6.3 cm/sec MV A max manjit: 75.3 cm/sec E/E' lat: 6.7 E/E' med: 9.3 MV E/A: 0.78 Ao V2 max: 118.5 cm/sec LV V1 max: 114.4 cm/sec PA V2 max: 114.4 cm/sec Ao max P.6 mmHg LV V1 max P.2 mmHg TR max manjit: 232.8 cm/sec TR max P.9 mmHg Interpretation Summary Normal LV size. Left ventricular systolic function is normal. The estimated ejection fraction is 60 %. Stage 1 diastolic dysfunction. Contrast injection was performed. Ordering Physician: Dilip Shipley Referring Physician: DEANGELO CHARLES Performed By: Makenna Aldridge, FLORENCECS, RVT
--- NOTE | 2018-06-28 17:16 | MRI_ITS ---
STUDY: MRI BRAIN WITH AND WITHOUT CONTRAST REASON FOR EXAM: Male, 58 years old. Dysarthria and right arm numbness and tingling. TECHNIQUE: Standardized multiplanar fat and water weighted pulse sequences were obtained. 20 ml IV Dotarem was administered for the contrast portion of the examination. COMPARISON: None. FINDINGS: There is mild cerebral atrophy with widening of the extra-axial spaces and ventricular dilatation. There are a limited number of small white matter hyperintensities, distributed throughout the deep white matter tracts of the cerebral hemispheres, consistent with mild chronic white matter ischemic changes. There is no evidence for recent intracranial ischemia or other cause of cytotoxic edema on diffusion weighted imaging (DWI). Normal T2* images of the brain without demonstrated susceptibility artifact. There is no demonstrated hemosiderin stain. Normal bilateral basal ganglia. Normal thalami. There is no extra-axial fluid accumulation. Normal flow voids within the major intracranial circulation suggesting patency by spin echo criteria. Normal venous enhancement. There is no enhancing intra-axial or extra-axial abnormality. There is a mass within the sella turcica and pituitary. The sella is enlarged. Estimated size of the sellar mass is approximately 1.4 x 1.1 x 1.2 cm in size. Normal tectal plate and pineal gland. Normal midbrain, irene and medulla. Normal cerebellum. Normal basal cisterns. Normal bilateral temporal bones. Normal bilateral internal auditory canals. No demonstrated orbital abnormality, within the constraints of a routine brain study. Normal visualized paranasal sinuses. Normal calvarium and skull base. Normal visualized soft tissue structures. Normal visualized upper cervical spine. MRI/Brain W/WO Contrast IMPRESSION: 1. 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 2. No MR evidence for acute infarct. Electronically Signed: Agueda Dimas MD at 20:38 EDT , Service support ,
--- NOTE | 2018-06-28 17:16 | MRI_ITS ---
HISTORY: TIA. Dysarthria, RIGHT arm N/T. Resolved now EXAMINATION: MRA Head W/O Contrast TECHNIQUE: Routine chilkoot of [place]/brain 3D time of flight MR angiogram protocol was performed without gadolinium. 3D reconstructions were reviewed. IV Contrast dosage and agent: None. COMPARISON: CT brain without contrast earlier same date. FINDINGS: ICAs: No significant stenosis at the intracranial/visualized segments. ACAs: No significant stenosis at the visualized segments. ACOM is present. MCAs: No significant stenosis at the visualized segments. PCOMs are present. outsewer: No significant stenosis at the visualized segments. BASILAR ARTERY: No significant stenosis. VERTEBRAL ARTERIES: No significant stenosis at the intradural/visualized segments. No evidence of intracranial aneurysm or vascular malformation. MRI/MRA Head ONLY without Contrast IMPRESSION: Unremarkable MRA head. at 2021 Reported and signed by: Radames Owens MD Electronically Signed: Radames Owens, at 20:20 EDT Tel , Service support ,
[2018-06-28] MEDS: Carvedilol 25 MG Tablet PO (20:41)
[2018-06-29] VITALS (12 sets, daily range): BP systolic 120–145; BP diastolic 58–89; PULSE 50–64; RESP 14–18; TEMP 36.5–36.8; O2SAT 94–97; BMI 33.0
[2018-06-29 07:03] LABS: Absolute Lymphocyte Count 1.15 X10^3/ul (0.83-4.51); Absolute Neutrophil Count 5.3 X10^3/uL (2.0-7.7); Basophil# 0.01 X10^3/uL; Basophil% 0.1 % (0-1); Eosinophil# 0.17 X10^3/uL; Eosinophils% 2.2 % (0-5); Hematocrit 41.5 % (40-54); Hemoglobin 13.8 g/dl (13.0-16.5); Lymphocyte # 1.15 X10^3/ul (4.0); Lymphocyte % 15.2 % (19-41); Mean Corp Hgb Conc 33.3 g/gl (32-36); Mean Corpuscular Hgb 29.2 pg (27.0-32.0); Mean Corpuscular Volume 87.9 fL (80-94); Mean Platelet Vol. 10.4 fl (6.2-12.0); Monocyte# 0.86 X10^3/uL; Monocyte% 11.4 % (0-10); Neutrophil # 5.34 X10^3/uL (2.7-7.7); Neutrophil % 70.6 % (47-70); RBC Distribution Width CV 13.5 % (11.6-14.6); RBC Distribution Width SD 43.2 fl (35.1-43.9); Red Blood Count 4.72 M/mm3 (4.6-6.2); White Blood Count 7.6 K/mm3 (4.4-11.0)
[2018-06-29 07:04] LABS: Cholesterol 198 mg/dL (200); High Density Lipoprotein 46 mg/dL; Triglycerides 169 mg/dL; Very Low Density Lipoprotein 34 mg/dL (5-40)
[2018-06-29 07:10] LABS: Differential Indicated SCAN CRITERIA MET; POSITIVE COUNT YES; POSITIVE DIFFERENTIAL NO; POSITIVE MORPHOLOGY NO; Platelet Count 49 K/mm3 (150-450)
[2018-06-29 07:40] LABS: Platelet Estimate MKD DEC (ADEQ)
[2018-06-29] MEDS: Aspirin E.C. 81 MG Tablet PO (09:23)
[2018-06-29] MEDS: Clopidogrel Bisulfate 75 MG Tablet PO (09:24)
[2018-06-29] MEDS: hydroCHLOROthiazide 25 MG Tablet PO (09:24)
[2018-06-29] MEDS: Carvedilol 25 MG Tablet PO ×2 (09:24→21:52)
[2018-06-29] MEDS: Losartan Potassium 100 MG Tablet PO (09:24)
[2018-06-29 09:32] LABS: Thyroid Stim Hormone (TSH) 1.62 uIU/mL (0.358-3.74)
--- NOTE | 2018-06-29 13:19 | PN_ITS ---
<Toño Varela - Last Filed: 06/29/18 13:12> Patient Problems: Active and Suspected Problems (Last Reviewed 06/28/18 @ 17:21 by Dilip Shipley DO) CVA (cerebral vascular accident) (Acute) Dysarthria (Acute) Paresthesia of right arm (Acute) Subjective: Patient had no further issues overnight. No numbness/tingling, no speech, writing, or visual issues. He has no focal weakness. He has no recollection of having platelet issues in the past. He has no hx of pituitary issues. He Has no neck, shoulder, or right arm pain. - Physical Exam General: Alert, Oriented x3, Cooperative HEENT: Atraumatic, PERRLA, EOMI, Normocephalic Neck: Supple, No JVD, Negative Carotid Bruits Lungs: Clear to auscultation, Normal air movement Cardiovascular: Regular rate, No murmurs Abdomen: Bowel Sounds Present, Soft, Non Tender Extremities: No edema, Capillary Refill Less than 3 Seconds Skin: No rashes, No breakdown Musculoskeletal: No Tenderness to Palpation of Joints or Extremities Neurological: Cranial nerves II-XII grossly intact, - - negative spurling. negative tinel, phalen, emir, symptoms not demonstrable via musculoskeltal ROM or palpation of the RUE or C spine. Psych/Mental Status: Normal Affect, Appropriate Vital Signs Temp Pulse Resp BP Pulse Ox 98.1 F 64 17 145/89 H 95 06/29/18 09:17 06/29/18 10:50 06/29/18 09:17 06/29/18 09:17 06/29/18 09:17 Oxygen Delivery Method Room Air Weight: 224 lb 3.362 oz Body Mass Index (BMI) 33.0 Finger Stick Blood Glucose 75 Intake and Output for Last 24 Hours 06/27/18 06/28/18 06/29/18 23:59 23:59 23:59 Intake Total 100 / 100 750 / 750 Balance 100 / 100 750 / 750 Laboratory Tests Past 24 Hrs 06/28/18 06/28/18 06/28/18 14:50 14:50 14:50 WBC Cancelled Corrected WBC Cancelled RBC Cancelled Hgb Cancelled Hct Cancelled MCV Cancelled MCH Cancelled MCHC Cancelled RDW Cancelled RDW Differential Cancelled Plt Count Cancelled MPV Cancelled Immature Gran % (Auto) Cancelled Neut % (Auto) Cancelled Lymph % (Auto) Cancelled Kleberg % (Auto) Cancelled Eos % (Auto) Cancelled Baso % (Auto) Cancelled Immature Gran # (Auto) Cancelled Absolute Neuts (auto) Cancelled Absolute Lymphs (auto) Cancelled Absolute Monos (auto) Cancelled Total Counted Cancelled Neutrophils % (Manual) Cancelled Band Neutrophils % Cancelled Lymphocytes % (Manual) Cancelled Monocytes % (Manual) Cancelled Eosinophils % (Manual) Cancelled Basophils % (Manual) Cancelled Metamyelocytes % Cancelled Myelocytes % Cancelled Promyelocytes % Cancelled Blast Cells % Cancelled Plasma Cell % (Manual) Cancelled Other Cells % Cancelled Lymphocytes # Cancelled Nucleated RBCs/100 WBC Cancelled Differential Comment Cancelled Diff Path Review Cancelled Hypersegmented Neuts Cancelled Atypical Lymphocytes Cancelled Reactive Lymphocytes Cancelled Smudge Cells Cancelled Eosinophilia # Cancelled Basophilia # Cancelled Toxic Granulation Cancelled Dohle Bodies Cancelled Johnny Rods Cancelled Platelet Estimate Cancelled Plt Morphology Comment Cancelled RBC Morphology Cancelled Polychromasia Cancelled Hypochromasia Cancelled Poikilocytosis Cancelled Basophilic Stippling Cancelled Anisocytosis Cancelled Microcytosis Cancelled Macrocytosis Cancelled Spherocytes Cancelled Sickle Cells Cancelled Target Cells Cancelled Tear Drop Cells Cancelled Ovalocytes Cancelled Stomatocytes Cancelled [place] Bodies Cancelled Bellamy Cells Cancelled Bite Cells Cancelled Acanthocytes (Spur) Cancelled Rouleaux Cancelled Schistocytes Cancelled PT Cancelled INR Cancelled APTT Cancelled Sodium 139 Potassium 3.8 Chloride 105 Carbon Dioxide 29.0 Anion Gap 5 BUN 19 H Creatinine 0.97 Estim Creat Clear Calc 83.01 Est GFR (MDRD) Af Amer 102 Est GFR (MDRD) Non-Af 84 BUN/Creatinine Ratio 19.5 Glucose 84 Calcium 9.1 Troponin I < 0.015 Triglycerides Cholesterol LDL Cholesterol VLDL Cholesterol HDL Cholesterol Vitamin B12 TSH 06/28/18 06/28/18 06/29/18 15:40 15:40 05:15 WBC 7.5 7.6 Corrected WBC RBC 4.41 L 4.72 Hgb 13.1 13.8 Hct 38.5 L 41.5 MCV 87.3 87.9 MCH 29.7 29.2 MCHC 34.0 33.3 RDW 13.3 13.5 RDW Differential 42.7 43.2 Plt Count 51 L 49 L* MPV 10.2 10.4 Immature Gran % (Auto) 0.500 Neut % (Auto) 70.6 H Lymph % (Auto) 15.2 L Kleberg % (Auto) 11.4 H Eos % (Auto) 2.2 Baso % (Auto) 0.1 Immature Gran # (Auto) Absolute Neuts (auto) 5.3 Absolute Lymphs (auto) 1.15 Absolute Monos (auto) Total Counted Not Reportable Neutrophils % (Manual) Band Neutrophils % Lymphocytes % (Manual) Monocytes % (Manual) Eosinophils % (Manual) Basophils % (Manual) Metamyelocytes % Myelocytes % Promyelocytes % Blast Cells % Plasma Cell % (Manual) Other Cells % Lymphocytes # Nucleated RBCs/100 WBC Differential Comment Diff Path Review May foll Hypersegmented Neuts Atypical Lymphocytes Reactive Lymphocytes Smudge Cells Eosinophilia # Basophilia # Toxic Granulation Dohle Bodies Johnny Rods Platelet Estimate MKD DEC Plt Morphology Comment RBC Morphology Polychromasia Hypochromasia Poikilocytosis Basophilic Stippling Anisocytosis Microcytosis Macrocytosis Spherocytes Sickle Cells Target Cells Tear Drop Cells Ovalocytes Stomatocytes [place] Bodies Bellamy Cells Bite Cells Acanthocytes (Spur) Rouleaux Schistocytes PT 13.4 INR 1.0 APTT 26.1 Sodium Potassium Chloride Carbon Dioxide Anion Gap BUN Creatinine Estim Creat Clear Calc Est GFR (MDRD) Af Amer Est GFR (MDRD) Non-Af BUN/Creatinine Ratio Glucose Calcium Troponin I Triglycerides Cholesterol LDL Cholesterol VLDL Cholesterol HDL Cholesterol Vitamin B12 TSH 06/29/18 06/29/18 06/29/18 05:15 05:15 05:15 WBC Corrected WBC RBC Hgb Hct MCV MCH MCHC RDW RDW Differential Plt Count MPV Immature Gran % (Auto) Neut % (Auto) Lymph % (Auto) Kleberg % (Auto) Eos % (Auto) Baso % (Auto) Immature Gran # (Auto) Absolute Neuts (auto) Absolute Lymphs (auto) Absolute Monos (auto) Total Counted Neutrophils % (Manual) Band Neutrophils % Lymphocytes % (Manual) Monocytes % (Manual) Eosinophils % (Manual) Basophils % (Manual) Metamyelocytes % Myelocytes % Promyelocytes % Blast Cells % Plasma Cell % (Manual) Other Cells % Lymphocytes # Nucleated RBCs/100 WBC Differential Comment Diff Path Review Hypersegmented Neuts Atypical Lymphocytes Reactive Lymphocytes Smudge Cells Eosinophilia # Basophilia # Toxic Granulation Dohle Bodies Johnny Rods Platelet Estimate Plt Morphology Comment RBC Morphology Polychromasia Hypochromasia Poikilocytosis Basophilic Stippling Anisocytosis Microcytosis Macrocytosis Spherocytes Sickle Cells Target Cells Tear Drop Cells Ovalocytes Stomatocytes [place] Bodies Jasmeet Cells Bite Cells Acanthocytes (Spur) Rouleaux Schistocytes PT INR APTT Sodium Potassium Chloride Carbon Dioxide Anion Gap BUN Creatinine Estim Creat Clear Calc Est GFR (MDRD) Af Amer Est GFR (MDRD) Non-Af BUN/Creatinine Ratio Glucose Calcium Troponin I Triglycerides 169 Cholesterol 198 LDL Cholesterol 118 VLDL Cholesterol 34 HDL Cholesterol 46 Vitamin B12 Pending TSH 1.62 POC Glucose 06/28/18 15:38 POC Glucose 75 Medical Necessity - Tobacco Use Smoking Status: Never smoker Tobacco Use: Non-smoker Assessment/Plan All Active Problems (Last Reviewed 06/28/18 @ 17:21 by Dilip Shipley DO) CVA (cerebral vascular accident) (Acute) Dysarthria (Acute) Paresthesia of right arm (Acute) History of acute inferior wall myocardial infarction (Acute) 1. CVA rule out - MRI shows pituitary macroadenoma, no evidence of stroke. MRA head and neck without acute process. Echo EF 60% st 1 diastolic dysfxn. -Neuro consulted -TSH normal -B12 pending 2. Thrombocytopenia - unclear etiology. obtain most recent labs from PCP - request placed. 3. CAD - stents in 11/01. on asa/plavix, coreg, losartan. Trop neg. 4. HTN - as above. 5. IBAN - continue nightly CPAP 6. HLD - start statin. DVT ppx: SCDs This patient was seen by Toño Varela PA-C under the supervision of Dr. Esteves <Ronny Esteves F - Last Filed: 06/29/18 15:09> - Physical Exam Vital Signs Temp Pulse Resp BP Pulse Ox 98.3 F 58 L 18 133/81 H 97 06/29/18 13:35 06/29/18 13:35 06/29/18 13:35 06/29/18 13:35 06/29/18 13:35 Oxygen Delivery Method Room Air Weight: 224 lb 3.362 oz Body Mass Index (BMI) 33.0 Finger Stick Blood Glucose 75 Intake and Output for Last 24 Hours 06/27/18 06/28/18 06/29/18 23:59 23:59 23:59 Intake Total 100 / 100 750 / 750 Balance 100 / 100 750 / 750 Laboratory Tests Past 24 Hrs 06/28/18 06/28/18 06/28/18 14:50 14:50 14:50 WBC Cancelled Corrected WBC Cancelled RBC Cancelled Hgb Cancelled Hct Cancelled MCV Cancelled MCH Cancelled MCHC Cancelled RDW Cancelled RDW Differential Cancelled Plt Count Cancelled MPV Cancelled Immature Gran % (Auto) Cancelled Neut % (Auto) Cancelled Lymph % (Auto) Cancelled Kleberg % (Auto) Cancelled Eos % (Auto) Cancelled Baso % (Auto) Cancelled Immature Gran # (Auto) Cancelled Absolute Neuts (auto) Cancelled Absolute Lymphs (auto) Cancelled Absolute Monos (auto) Cancelled Total Counted Cancelled Neutrophils % (Manual) Cancelled Band Neutrophils % Cancelled Lymphocytes % (Manual) Cancelled Monocytes % (Manual) Cancelled Eosinophils % (Manual) Cancelled Basophils % (Manual) Cancelled Metamyelocytes % Cancelled Myelocytes % Cancelled Promyelocytes % Cancelled Blast Cells % Cancelled Plasma Cell % (Manual) Cancelled Other Cells % Cancelled Lymphocytes # Cancelled Nucleated RBCs/100 WBC Cancelled Differential Comment Cancelled Diff Path Review Cancelled Hypersegmented Neuts Cancelled Atypical Lymphocytes Cancelled Reactive Lymphocytes Cancelled Smudge Cells Cancelled Eosinophilia # Cancelled Basophilia # Cancelled Toxic Granulation Cancelled Dohle Bodies Cancelled Johnny Rods Cancelled Platelet Estimate Cancelled Plt Morphology Comment Cancelled RBC Morphology Cancelled Polychromasia Cancelled Hypochromasia Cancelled Poikilocytosis Cancelled Basophilic Stippling Cancelled Anisocytosis Cancelled Microcytosis Cancelled Macrocytosis Cancelled Spherocytes Cancelled Sickle Cells Cancelled Target Cells Cancelled Tear Drop Cells Cancelled Ovalocytes Cancelled Stomatocytes Cancelled [place] Bodies Cancelled Jasmeet Cells Cancelled Bite Cells Cancelled Acanthocytes (Spur) Cancelled Rouleaux Cancelled Schistocytes Cancelled PT Cancelled INR Cancelled APTT Cancelled Sodium 139 Potassium 3.8 Chloride 105 Carbon Dioxide 29.0 Anion Gap 5 BUN 19 H Creatinine 0.97 Estim Creat Clear Calc 83.01 Est GFR (MDRD) Af Amer 102 Est GFR (MDRD) Non-Af 84 BUN/Creatinine Ratio 19.5 Glucose 84 Calcium 9.1 Troponin I < 0.015 Triglycerides Cholesterol LDL Cholesterol VLDL Cholesterol HDL Cholesterol Vitamin B12 TSH 06/28/18 06/28/18 06/29/18 15:40 15:40 05:15 WBC 7.5 7.6 Corrected WBC RBC 4.41 L 4.72 Hgb 13.1 13.8 Hct 38.5 L 41.5 MCV 87.3 87.9 MCH 29.7 29.2 MCHC 34.0 33.3 RDW 13.3 13.5 RDW Differential 42.7 43.2 Plt Count 51 L 49 L* MPV 10.2 10.4 Immature Gran % (Auto) 0.500 Neut % (Auto) 70.6 H Lymph % (Auto) 15.2 L Kle[place] % (Auto) 11.4 H Eos % (Auto) 2.2 Baso % (Auto) 0.1 Immature Gran # (Auto) Absolute Neuts (auto) 5.3 Absolute Lymphs (auto) 1.15 Absolute Monos (auto) Total Counted Not Reportable Neutrophils % (Manual) Band Neutrophils % Lymphocytes % (Manual) Monocytes % (Manual) Eosinophils % (Manual) Basophils % (Manual) Metamyelocytes % Myelocytes % Promyelocytes % Blast Cells % Plasma Cell % (Manual) Other Cells % Lymphocytes # Nucleated RBCs/100 WBC Differential Comment Diff Path Review May foll Hypersegmented Neuts Atypical Lymphocytes Reactive Lymphocytes Smudge Cells Eosinophilia # Basophilia # Toxic Granulation Dohle Bodies Johnny Rods Platelet Estimate MKD DEC Plt Morphology Comment RBC Morphology Polychromasia Hypochromasia Poikilocytosis Basophilic Stippling Anisocytosis Microcytosis Macrocytosis Spherocytes Sickle Cells Target Cells Tear Drop Cells Ovalocytes Stomatocytes [place] Bodies Jasmeet Cells Bite Cells Acanthocytes (Spur) Rouleaux Schistocytes PT 13.4 INR 1.0 APTT 26.1 Sodium Potassium Chloride Carbon Dioxide Anion Gap BUN Creatinine Estim Creat Clear Calc Est GFR (MDRD) Af Amer Est GFR (MDRD) Non-Af BUN/Creatinine Ratio Glucose Calcium Troponin I Triglycerides Cholesterol LDL Cholesterol VLDL Cholesterol HDL Cholesterol Vitamin B12 TSH 06/29/18 06/29/18 06/29/18 05:15 05:15 05:15 WBC Corrected WBC RBC Hgb Hct MCV MCH MCHC RDW RDW Differential Plt Count MPV Immature Gran % (Auto) Neut % (Auto) Lymph % (Auto) Kle[place] % (Auto) Eos % (Auto) Baso % (Auto) Immature Gran # (Auto) Absolute Neuts (auto) Absolute Lymphs (auto) Absolute Monos (auto) Total Counted Neutrophils % (Manual) Band Neutrophils % Lymphocytes % (Manual) Monocytes % (Manual) Eosinophils % (Manual) Basophils % (Manual) Metamyelocytes % Myelocytes % Promyelocytes % Blast Cells % Plasma Cell % (Manual) Other Cells % Lymphocytes # Nucleated RBCs/100 WBC Differential Comment Diff Path Review Hypersegmented Neuts Atypical Lymphocytes Reactive Lymphocytes Smudge Cells Eosinophilia # Basophilia # Toxic Granulation Dohle Bodies Johnny Rods Platelet Estimate Plt Morphology Comment RBC Morphology Polychromasia Hypochromasia Poikilocytosis Basophilic Stippling Anisocytosis Microcytosis Macrocytosis Spherocytes Sickle Cells Target Cells Tear Drop Cells Ovalocytes Stomatocytes [place] Bodies Jasmeet Cells Bite Cells Acanthocytes (Spur) Rouleaux Schistocytes PT INR APTT Sodium Potassium Chloride Carbon Dioxide Anion Gap BUN Creatinine Estim Creat Clear Calc Est GFR (MDRD) Af Amer Est GFR (MDRD) Non-Af BUN/Creatinine Ratio Glucose Calcium Troponin I Triglycerides 169 Cholesterol 198 LDL Cholesterol 118 VLDL Cholesterol 34 HDL Cholesterol 46 Vitamin B12 Pending TSH 1.62 POC Glucose 06/28/18 15:38 POC Glucose 75 Code Visit Addendum: Dr. Esteves I personally examined the patient and reviewed the chart. I agree with the above. 58-year-old male with history of coronary artery disease status post stent about 10 years ago presenting with an episode of transient confusion and right arm numbness. He states that his numbness starts at his elbow and goes down to his fourth and fifth finger. He does have reproduction of those symptoms with percussion of his cubital tunnel, I feel he likely just has cubital tunnel syndrome and would benefit from an anti-inflammatory. Cannot do an NSAID given has how low his platelets are. As to why S thrombus cytopenia there are no new medications and he denies any recent illness. We are awaiting records from his primary care physician to see if there is been a trend or if this is brand-new since we do not have any records from him. He is not anemic to think that this could be an ITP or TTP, he has no rash. There are case reports that aspirin and Plavix combined can lead to thrombocytopenia but I feel that this is unlikely. We will recheck his platelets tomorrow, and if stable will plan for discharge home with follow-up with hematology as an outpatient. Also because of this numbness in his arm and the transient confusion he had an MRI, which is read as a possible macroadenoma, he denies any blurred vision or vision changes as well as no erectile dysfunction or decrease in libido. A TSH was obtained and it was normal. Can have him follow-up as an outpatient as well for prolactin and further testing if neurology agrees. OBSV E&M: [id number] Initial observation care L2
[2018-06-30 03:04] VITALS: PULSE 51
[2018-06-30 03:52] VITALS: BP 111/62; PULSE 59; RESP 12; TEMP 36.7; O2SAT 95
[2018-06-30 04:23] VITALS: PULSE 47
[2018-06-30 07:05] VITALS: PULSE 52
[2018-06-30 07:18] LABS: Absolute Lymphocyte Count 1.07 X10^3/ul (0.83-4.51); Absolute Neutrophil Count 5.1 X10^3/uL (2.0-7.7); Basophil# 0.02 X10^3/uL; Basophil% 0.3 % (0-1); Eosinophil# 0.13 X10^3/uL; Eosinophils% 1.8 % (0-5); Hematocrit 41.6 % (40-54); Hemoglobin 14.1 g/dl (13.0-16.5); Lymphocyte # 1.07 X10^3/ul (4.0); Lymphocyte % 14.8 % (19-41); Mean Corp Hgb Conc 33.9 g/gl (32-36); Mean Corpuscular Hgb 29.7 pg (27.0-32.0); Mean Corpuscular Volume 87.8 fL (80-94); Mean Platelet Vol. 10.8 fl (6.2-12.0); Monocyte# 0.82 X10^3/uL; Monocyte% 11.4 % (0-10); Neutrophil # 5.14 X10^3/uL (2.7-7.7); Neutrophil % 71.3 % (47-70); Platelet Count 48 K/mm3 (150-450); RBC Distribution Width CV 13.4 % (11.6-14.6); RBC Distribution Width SD 43.2 fl (35.1-43.9); Red Blood Count 4.74 M/mm3 (4.6-6.2); White Blood Count 7.2 K/mm3 (4.4-11.0)
[2018-06-30 07:19] LABS: Differential Indicated SCAN CRITERIA MET; POSITIVE COUNT YES; POSITIVE DIFFERENTIAL NO; POSITIVE MORPHOLOGY NO
[2018-06-30 07:42] LABS: Platelet Estimate MKD DEC (ADEQ)
[2018-06-30 09:45] VITALS: BP 114/70; PULSE 62; RESP 16; TEMP 36.6; O2SAT 96
[2018-06-30] MEDS: Carvedilol 25 MG Tablet PO (09:47)
[2018-06-30] MEDS: Clopidogrel Bisulfate 75 MG Tablet PO (09:47)
[2018-06-30] MEDS: Losartan Potassium 100 MG Tablet PO (09:48)
[2018-06-30] MEDS: Aspirin E.C. 81 MG Tablet PO (09:48)
[2018-06-30] MEDS: hydroCHLOROthiazide 25 MG Tablet PO (09:48)
[2018-06-30 09:53] VITALS: BMI 33.0
--- NOTE | 2018-06-30 10:07 | CON.PCM_ITS ---
Reason for Consult Date of Consultation: 06/30/18 Reason for Consultation: right arm tingiling History of Present Illness: 58 yo right handed white male yesterday at 230 noted onset of tingling of right 4th and 5th digits later associated with difficulty with speech and language and vision trouble, now all resolved. went to urgent care, then drove himself to the hospital. after normal after one hour. had a headache. Per admit note: Chief Complaint: tingling right arm The patient is a 58 year old M with pmhx of CAD with stents in , IBAN on CPAP qhs, HTN, HLD, tinnitus, who presented to the ER with chief complaint of tingling in his right arm. This began about 1300 today while out driving running errands. He felt tingling and numbness without weakness travel from his fingertips up his forearm to his mid bicep. He then drove to the pharmacy and was filling out a form of personal information and could not fill out the form. He wrote his name, and everything else he knew what he wanted to write but could not write it, and felt that the words and letters were jumping around. He also could not speak a full sentence, also reporting that he knew what he wanted to say but the words were not coming out correctly. He denied slurring. He had a mild APONTE located on top of his head. He denied dizziness. His tinnitus may be somewhat worse than normal. He denies weakness. He denies any other affected part of his body. While in the ER about 1413 his symptoms suddenly and completely resolved. No complaints at this time. Past Medical History Past Medical History (Chronic Problems): Chronic Problems (Last Reviewed 06/30/18 @ 10:06 by Del Mello MD) CAD (coronary artery disease) (Chronic) IBAN (obstructive sleep apnea) (Chronic) Thrombocytopenia (Chronic) Presence of stent in coronary artery (Chronic ~08/2008) PTCA/BMS to distal RCA 08/2008 @ [facility] Hyperlipidemia (Chronic) Atherosclerotic heart disease of [place] coronary artery without angina pectoris (Chronic) PTCA/BMS to distal RCA 08/2008 @ [facility] Hypertension (Chronic) Medical History: Medical History (Last Reviewed 06/30/18 @ 10:06 by Del Mello MD) Hyperlipidemia (Chronic) E78.5 Atherosclerotic heart disease of [place] coronary artery without angina pectoris (Chronic) I25.10 PTCA/BMS to distal RCA 08/2008 @ [facility] History of acute inferior wall myocardial infarction (Acute) I25.2 Hypertension (Chronic) I10 IBAN (obstructive sleep apnea) G47.33 Allergies No Known Allergies Allergy (Verified 06/28/18 14:39) Home Medications: Ambulatory Orders Medication Instructions Recorded aspirin 81 mg tablet,delayed 81 mg PO DAILY 09/04/17 release carvedilol 25 mg tablet 25 mg PO BID 09/04/17 Clopidogrel Bisulfate [Clopidogrel] 75 mg PO DAILY 06/28/18 Losartan/Hydrochlorothiazide 1 tab PO DAILY 06/28/18 [Losartan-Hctz 100-25 mg Tab] Surgical History: Surgical History (Last Reviewed 06/30/18 @ 10:06 by Del Mello MD) Presence of stent in coronary artery (Chronic) Onset Date: ~08/2008 Z95.5 PTCA/BMS to distal RCA 08/2008 @ [facility] Postsurgical percutaneous transluminal coronary angioplasty (PTCA) status Onset Date: ~08/2008 Z98.61 PTCA/BMS to distal RCA 08/2008 @ [facility] History of left knee surgery Z98.890 History of right knee surgery Z98.890 Surgical History: - - BL Knee arthroscopy, septoplasty Lives: With Family Smoking Status: Never smoker Tobacco Use: Non-smoker Alcohol: Occasional Drugs: None - *Family History Paternal Family History: Family History (Last Reviewed 06/30/18 @ 10:06 by Del Mello MD) Father CAD (coronary artery disease) Myocardial infarction, Onset Age: 42 Sister Hypertension History Items: Heart Disease Maternal Family History: Family History (Last Reviewed 06/30/18 @ 10:06 by Del Mello MD) Father CAD (coronary artery disease) Myocardial infarction, Onset Age: 42 Sister Hypertension History Items: Cancer - colon Review of Systems Constitutional: Denies: Chills, Fever, Weight Change HEENT: Denies: Head Aches, Sinus Congestion, Sinus Drainage Cardiovascular: Denies: Chest Pain, Palpitations Respiratory: Denies: Cough, Shortness of breath at rest, Sputum production Gastrointestinal: Denies: Abdominal Pain, Nausea, Vomiting Genitourinary: Denies: Dysuria Musculoskeletal: Denies: Joint Pain, Joint Tenderness Skin: Denies: Rash, Wounds Neurological: Denies: Numbness, Tingling, Focal weakness Psychiatric: Denies: Anxiety, Depression, Homicidal Ideations, Suicidal Ideations Hematologic/ Lymphatic: Denies: Easy Bruising, Easy Bleeding Patient Problems: Active and Suspected Problems (Last Reviewed 06/30/18 @ 10:06 by Del Mello MD) CVA (cerebral vascular accident) (Acute) Dysarthria (Acute) Paresthesia of right arm (Acute) - Physical Exam General: Alert, Oriented x3, Cooperative HEENT: Atraumatic, PERRLA, EOMI, Normocephalic Neck: Supple, No JVD, Negative Carotid Bruits Lungs: Clear to auscultation, Normal air movement Cardiovascular: Regular rate, No murmurs Abdomen: Bowel Sounds Present, Soft, Non Tender Extremities: No edema, Capillary Refill Less than 3 Seconds Skin: No rashes, No breakdown Musculoskeletal: No Tenderness to Palpation of Joints or Extremities Neurological: Cranial nerves II-XII grossly intact Psych/Mental Status: Normal Affect, Appropriate Vital Signs Temp Pulse Resp BP Pulse Ox 36.6 C 62 16 114/70 96 06/30/18 09:45 06/30/18 09:45 06/30/18 09:45 06/30/18 09:45 06/30/18 09:45 Oxygen Delivery Method Room Air Weight: 101.7 kg Body Mass Index (BMI) 33.0 Finger Stick Blood Glucose 75 Intake and Output for Last 24 Hours 06/28/18 06/29/18 06/30/18 23:59 23:59 23:59 Intake Total 100 / 100 1760 / 1760 0 / 0 Balance 100 / 100 1760 / 1760 0 / 0 Laboratory Tests Past 24 Hrs 06/30/18 06/30/18 05:25 05:25 WBC Cancelled 7.2 Corrected WBC Cancelled RBC Cancelled 4.74 Hgb Cancelled 14.1 Hct Cancelled 41.6 MCV Cancelled 87.8 MCH Cancelled 29.7 MCHC Cancelled 33.9 RDW Cancelled 13.4 RDW Differential Cancelled 43.2 Plt Count Cancelled 48 L* MPV Cancelled 10.8 Immature Gran % (Auto) 0.400 Neut % (Auto) 71.3 H Lymph % (Auto) 14.8 L Edgar % (Auto) 11.4 H Eos % (Auto) 1.8 Baso % (Auto) 0.3 Absolute Neuts (auto) 5.1 Absolute Lymphs (auto) 1.07 Total Counted Not Reportable Diff Path Review Cancelled May foll Platelet Estimate MKD DEC MRI reviewed, no acute Assessment/Plan All Active Problems (Last Reviewed 06/30/18 @ 10:06 by Del Mello MD) CVA (cerebral vascular accident) (Acute) Dysarthria (Acute) Paresthesia of right arm (Acute) History of acute inferior wall myocardial infarction (Acute) right handed weakness, associated with language abnormality, resolved, mri negative ok to dc, suspect complicated migraine, continue asa daily, bp rx IBAN, suboptimally treated, rec f/u with dr mendoza
--- NOTE | 2018-06-30 10:44 | DCINST_ITS ---
- Discharge Diagnoses Current Active Problems: Current Active and Chronic Problems (Last Reviewed 06/30/18 @ 10:06 by Del Mello MD) CVA (cerebral vascular accident) (Acute) CAD (coronary artery disease) (Chronic) IBAN (obstructive sleep apnea) (Chronic) Thrombocytopenia (Chronic) Dysarthria (Acute) Paresthesia of right arm (Acute) You will use the following diet at home:: Cardiac Your food should be the consistency of: Regular Your liquids should be the consistency of: Regular/Thin Discharge Activity: Return to Normal Activity Allergies/Adverse Reactions: Allergies No Known Allergies Allergy (Verified 06/28/18 14:39) Medications to take at Discharge aspirin 81 mg tablet,delayed release 81 mg PO DAILY 09/04/17 carvedilol 25 mg tablet 25 mg PO BID 09/04/17 Losartan/Hydrochlorothiazide [Losartan-Hctz 100-25 mg Tab] 1 tab PO DAILY 06/28/18 Primary Care Physician: Devika Arcos MD [Primary Care Provider] - Please follow up with your Primary Care Physician in: 1-2 weeks Test Results: Test results from this visit will be discussed in further detail at your follow- up appointment, if applicable. Please Follow Up With: Del Mello MD When: 1 month Please Follow Up With: Juan Page MD - Regarding CPAP When: Call for appointment Please Follow Up With: Eliz Cristobal MD - Low platelets When: 1 week Proposed Discharge Date: 06/30/18
--- NOTE | 2018-06-30 13:04 | PCM.DC.SUM ---
<Toño Varela - Last Filed: 06/30/18 13:13> Discharge Date and Diagnosis Date of Admission: 06/28/18 Date of Discharge: 06/30/18 - Primary Discharge Diagnosis RUE numbness 2/2 Cubital tunnel syndrome Complex migraine Thrombocytopenia unclear etiology Pituitary macroadenoma IBAN Obesity CAD prior stents 11/01 HLD HTN - Secondary Discharge Diagnosis Chronic Problems (Last Reviewed 06/30/18 @ 10:06 by Del Mello MD) CAD (coronary artery disease) (Chronic) IBAN (obstructive sleep apnea) (Chronic) Thrombocytopenia (Chronic) Presence of stent in coronary artery (Chronic ~08/2008) PTCA/BMS to distal RCA 08/2008 @ [facility] Hyperlipidemia (Chronic) Atherosclerotic heart disease of [place] coronary artery without angina pectoris (Chronic) PTCA/BMS to distal RCA 08/2008 @ [facility] Hypertension (Chronic) Hospital Course and Treatment Imaging Results: CT/Brain/Head without Contrast IMPRESSION: Normal unenhanced CT scan of the brain. N.B. : The above information has been verbally conveyed by Mo Franklin to Sandip Alan on 06/28/2018 15:27:34 (ET). RAD/Chest 1 View IMPRESSION: Normal x-ray examination of the chest. MRI/Brain W/WO Contrast IMPRESSION: 1. 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 2. No MR evidence for acute infarct. Echo: Interpretation Summary Normal LV size. Left ventricular systolic function is normal. The estimated ejection fraction is 60 %. Stage 1 diastolic dysfunction. Contrast injection was performed. MRI/MRA Head ONLY without Contrast IMPRESSION: Unremarkable MRA head. MRI/MRA Neck WITH and W/O Contrast IMPRESSION: Unremarkable MRA neck. Consults: Funmilayo - neuro Operations: None Procedures: 2-D Echocardiogram Summary of Care Provided: Hospital course: The patient is a 58 year old M with pmhx as above who presented to the emergency room with new onset of right bicep and forearm numbness, and expressive aphasia that started the day of admission lasted for about 1-1/2 hours before spontaneously resolving. He came to the emergency room and was found to have a negative CT of the brain, and a thrombocytopenia with platelet count of 50,000. He was admitted with concern for acute CVA. Neurology was consulted. MRI of the brain was obtained which did not demonstrate an acute infarct, did show a pituitary macroadenoma. MRA of the head and neck was obtained which did not show any acute process. The patient had a positive Tinel test over his cubital tunnel and was found to have cubital tunnel syndrome., Neurology felt that he had a complex migraine. His symptoms did not return after admission. While here his aspirin and Plavix were held. His platelets declined to 48,000. Peripheral smear was ordered but will not be resulted until tomorrow. He was arranged to have follow-up care with hematology within a week with . He will need to follow-up with neurology as well in 3-4 weeks. Should follow-up with his PCP in 1-2 weeks. He was discharged home in stable condition. He will return back on aspirin, but was advised to hold Plavix. 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 This patient was seen by Toño Varela PA-C under the supervision of Doctor Linn. [] - Physical Exam Vital Signs Temp Pulse Resp BP Pulse Ox 97.9 F 62 16 114/70 96 06/30/18 09:45 06/30/18 09:45 06/30/18 09:45 06/30/18 09:45 06/30/18 09:45 Oxygen Delivery Method Room Air Weight: 224 lb 3.362 oz Body Mass Index (BMI) 33.0 Finger Stick Blood Glucose 75 Intake and Output for Last 24 Hours 06/28/18 06/29/18 06/30/18 23:59 23:59 23:59 Intake Total 100 / 100 1760 / 1760 0 / 0 Balance 100 / 100 1760 / 1760 0 / 0 Laboratory Tests Past 24 Hrs 06/30/18 06/30/18 05:25 05:25 WBC Cancelled 7.2 Corrected WBC Cancelled RBC Cancelled 4.74 Hgb Cancelled 14.1 Hct Cancelled 41.6 MCV Cancelled 87.8 MCH Cancelled 29.7 MCHC Cancelled 33.9 RDW Cancelled 13.4 RDW Differential Cancelled 43.2 Plt Count Cancelled 48 L* MPV Cancelled 10.8 Immature Gran % (Auto) 0.400 Neut % (Auto) 71.3 H Lymph % (Auto) 14.8 L Turner % (Auto) 11.4 H Eos % (Auto) 1.8 Baso % (Auto) 0.3 Absolute Neuts (auto) 5.1 Absolute Lymphs (auto) 1.07 Total Counted Not Reportable Diff Path Review Cancelled May foll Platelet Estimate MKD FEB Discharge Diet: Low fat/ Low Cholesterol, 2000 mg Sodium Diet Discharge Activity: Return to Normal Activity Home Medications: Medications to take at Discharge aspirin 81 mg tablet,delayed release 81 mg PO DAILY 09/04/17 carvedilol 25 mg tablet 25 mg PO BID 09/04/17 Losartan/Hydrochlorothiazide [Losartan-Hctz 100-25 mg Tab] 1 tab PO DAILY 06/28/18 Primary Care Physician: Devika Arcos MD [Primary Care Provider] - Please follow up with your Primary Care Physician in: 1-2 weeks Please Follow Up With: Del Mello MD When: 1 month Please Follow Up With: Juan Page MD - Regarding CPAP When: Call for appointment Please Follow Up With: Eliz Cristboal MD - Low platelets When: 1 week Medical Necessity - Tobacco Use Smoking Status: Never smoker Tobacco Use: Non-smoker Meaningful Use Info Meaningful Use Diagnoses (Choose all that apply): None applicable <Ronny Esteves - Last Filed: 06/30/18 13:19> Discharge Date and Diagnosis - Secondary Discharge Diagnosis Chronic Problems (Last Reviewed 06/30/18 @ 10:06 by Del Mello MD) CAD (coronary artery disease) (Chronic) IBAN (obstructive sleep apnea) (Chronic) Thrombocytopenia (Chronic) Presence of stent in coronary artery (Chronic ~08/2008) PTCA/BMS to distal RCA 08/2008 @ [facility] Hyperlipidemia (Chronic) Atherosclerotic heart disease of [place] coronary artery without angina pectoris (Chronic) PTCA/BMS to distal RCA 08/2008 @ [facility] Hypertension (Chronic) Hospital Course and Treatment Summary of Care Provided: The patient is a 58 year old M [] - Physical Exam Vital Signs Temp Pulse Resp BP Pulse Ox 97.9 F 62 16 114/70 96 06/30/18 09:45 06/30/18 09:45 06/30/18 09:45 06/30/18 09:45 06/30/18 09:45 Oxygen Delivery Method Room Air Weight: 224 lb 3.362 oz Body Mass Index (BMI) 33.0 Finger Stick Blood Glucose 75 Intake and Output for Last 24 Hours 06/28/18 06/29/18 06/30/18 23:59 23:59 23:59 Intake Total 100 / 100 1760 / 1760 0 / 0 Balance 100 / 100 1760 / 1760 0 / 0 Laboratory Tests Past 24 Hrs 06/30/18 06/30/18 05:25 05:25 WBC Cancelled 7.2 Corrected WBC Cancelled RBC Cancelled 4.74 Hgb Cancelled 14.1 Hct Cancelled 41.6 MCV Cancelled 87.8 MCH Cancelled 29.7 MCHC Cancelled 33.9 RDW Cancelled 13.4 RDW Differential Cancelled 43.2 Plt Count Cancelled 48 L* MPV Cancelled 10.8 Immature Gran % (Auto) 0.400 Neut % (Auto) 71.3 H Lymph % (Auto) 14.8 L Turner % (Auto) 11.4 H Eos % (Auto) 1.8 Baso % (Auto) 0.3 Absolute Neuts (auto) 5.1 Absolute Lymphs (auto) 1.07 Total Counted Not Reportable Diff Path Review Cancelled May foll Platelet Estimate MKD DEC Code Visit Addendum: Dr. Esteves I personally examined the patient and reviewed the chart. I agree with the above. 58-year-old male who presented with confusion which was transient in nature after headache as well as right arm numbness down to the fourth and fifth fingers, and was found to have thrombocytopenia. He had an MRI initially for possible stroke which found to have a possible microadenoma. Neurosurgery stated that he should have follow-up with a follow-up MRI in about 6 months. As for his arm numbness that is consistent with cubital tunnel syndrome given a positive Tinel's test. Given his platelets do not recommend NSAIDs and just breast and therapy. I did discuss the case with hematology and recommended that he follow-up with [facility] hematology for workup of his thrombocytopenia. Can resume his aspirin but will hold his Plavix, and a peripheral smear is pending. At this time etiology of his thrombocytopenia is unknown. OBSV E&M: [id number] Observation care discharge
[2018-07-01 09:39] LABS: Vitamin B12 714 pg/mL (211-911)
[2018-07-01 11:35] LABS: Pathologist Review Reviewed
[2018-07-02 12:20] LABS: Pathologist Review Reviewed
== END 2018-06-30 10:43 | disposition home or self-care (01) ==
LOC: ED 15:06 → PCU 16:22
PROVIDERS: Physician Assistant; Emergency Provider Emergency Medicine; Family Provider Family Medicine; PCP Family Medicine; Visit Provider Family Medicine
DX: G43.109 Migraine with aura, not intractable, without status migrainosus (principal); G56.21 Lesion of ulnar nerve, right upper limb; D69.6 Thrombocytopenia, unspecified; G47.33 Obstructive sleep apnea (adult) (pediatric); I25.10 Atherosclerotic heart disease of native coronary artery without angina pectoris; E78.5 Hyperlipidemia, unspecified; I10 Essential (primary) hypertension; E66.9 Obesity, unspecified; I25.2 Old myocardial infarction; Z68.33 Body mass index [BMI] 33.0-33.9, adult; Z71.3 Dietary counseling and surveillance; Z95.5 Presence of coronary angioplasty implant and graft; Z79.899 Other long term (current) drug therapy; Z79.82 Long term (current) use of aspirin; Z79.02 Long term (current) use of antithrombotics/antiplatelets; Z87.891 Personal history of nicotine dependence
CPT/HCPCS: 36415; 70450; 70544; 70549; 70553; 71045; 80048; 80061; 82607; 82962; 84443; 84484; 85025; 85027; 85610; 85730; 93005; 93306; 99218; 99284; A9575; Q9957; A4216; C8929; G0378

== ENCOUNTER → 2018-07-09 10:12 | Outpatient (CLI) | payer BC, SELFPAY ==
[2018-06-30 09:53] VITALS: BMI 33.0
--- NOTE | 2018-07-09 10:18 | RAD_ITS ---
STUDY: X-RAY - ABDOMEN/PELVIS REASON FOR EXAM: Male, 58 years old. Thrombocytopenia. Abdominal bloating. TECHNIQUE: AP supine and upright views of the abdomen and pelvis. COMPARISON: None. FINDINGS: Normal visualized lung bases. There is an abundance of fecal material throughout the colon. There is no demonstrated free abdominal air. The visualized liver, spleen and kidneys are grossly normal in size and morphology. Normal soft tissue structures. There are diffuse degenerative changes of the visualized lumbar spine. RAD/Abd Inc Decub and/or Erect IMPRESSION: A large amount of fecal material is seen in the colon. Electronically Signed: Mo Franklin, at 11:38 EDT , Service support ,
[2018-07-09 12:40] LABS: Absolute Lymphocyte Count 1.18 X10^3/ul (0.83-4.51); Absolute Neutrophil Count 4.9 X10^3/uL (2.0-7.7); Basophil# 0.02 X10^3/uL; Basophil% 0.3 % (0-1); Eosinophil# 0.14 X10^3/uL; Hematocrit 37.4 % (40-54); Hemoglobin 12.8 g/dl (13.0-16.5); Lymphocyte # 1.18 X10^3/ul (4.0); Lymphocyte % 16.9 % (19-41); Mean Corp Hgb Conc 34.2 g/gl (32-36); Mean Corpuscular Hgb 29.6 pg (27.0-32.0); Mean Corpuscular Volume 86.4 fL (80-94); Mean Platelet Vol. 11.1 fl (6.2-12.0); Monocyte# 0.71 X10^3/uL; Monocyte% 10.2 % (0-10); Platelet Count 9 K/mm3 (150-450); RBC Distribution Width SD 40.5 fl (35.1-43.9); Red Blood Count 4.33 M/mm3 (4.6-6.2)
[2018-07-09 12:41] LABS: Differential Indicated SCAN CRITERIA MET; POSITIVE COUNT YES; POSITIVE DIFFERENTIAL NO; POSITIVE MORPHOLOGY YES
[2018-07-09 13:12] LABS: Platelet Estimate MKD DEC (ADEQ)
[2018-07-11 13:59] LABS: Pathologist Review Reviewed
== END ==
LOC: MTLAB 10:15
PROVIDERS: Family Provider Family Medicine; PCP Family Medicine; Referring Provider Family Medicine; Visit Provider Family Medicine
DX: D69.1 Qualitative platelet defects (principal)
CPT/HCPCS: 36415; 74019; 85025

== ENCOUNTER 2018-07-09 15:56 | Inpatient (IN) | payer BC, SELFPAY ==
[2018-07-09 15:57] VITALS: BP 132/83; PULSE 56; RESP 18; TEMP 36.6; O2SAT 98; BMI 32.5
--- NOTE | 2018-07-09 16:18 | ED.VISSUMM ---
- ER Visit Summary Date of Service: 07/09/18 Chief Complaint: Abnormal labs History of Present Illness: The patient is a 58 M presenting due to abnormal labs. Patient went to his PCP for a routine follow-up from a hospitalization today. Blood work showed low platelet level. His platelet count was 40 while in the hospital. On repeat today it was 9. His primary care physician Dr. Arcos discussed with Dr. Angel who recommends inpatient evaluation. Patient states he has felt fatigued. Otherwise he has no complaints. Physical Examination: Vitals are stable. Patient is afebrile. Alert no acute distress. HEENT exam is unremarkable. Neck is supple. Lungs are clear and equal bilaterally. Heart is regular rate and rhythm. Abdomen is soft nontender nondistended. Extremities are unremarkable. Skin is warm and dry. Petechial rash trunk and lower extremities No focal neurologic deficit. Remainder of exam is unremarkable. Emergency Department Course and Treatment: Patient was seen by Dr. Vela in the emergency department. He ordered Decadron. Patient will be admitted to the hospitalist. Disposition: Admission Impression: Thrombocytopenia, ITP This note was generated with [email or web address] dictation software. It may contain incorrect words, spelling, and punctuation that were not noted in review of the chart prior to signing ED Disposition - Plan for ED Patient: Referrals: Devika Arcos MD [Primary Care Provider] -
[2018-07-09 16:52] LABS: Anion Gap 5 (5-15); BUN 18 mg/dL (7-18); Calcium,Total 8.7 mg/dL (8.5-10.1); Chloride 108 mmol/L (98-107); EST Glomerular Filtration Rate 82 mL/min (>60); Est Glom Filt Rate - Afr Amer 99 mL/min (>60); Estimated Creatinine Clearance 80.52 ml/min; Glucose 94 mg/dL (74-106); Potassium 3.7 mmol/L (3.5-5.1); Sodium Level 140 mmol/L (136-145)
[2018-07-09] MEDS: Pantoprazole Sodium 40 MG Tablet PO (17:14)
[2018-07-09 17:18] VITALS: BP 142/79; PULSE 52; RESP 16; O2SAT 98
--- NOTE | 2018-07-09 17:50 | HP.PCM_ITS ---
Problem List (1) CVA (cerebral vascular accident) Status: Acute Qualifiers: CVA mechanism: unspecified Qualified Code(s): I63.9 - Cerebral infarction, unspecified (2) Thrombocytopenia Status: Chronic (3) Hyperlipidemia Status: Chronic Qualifiers: Hyperlipidemia type: unspecified Qualified Code(s): E78.5 - Hyperlipidemia, unspecified (4) Hypertension Status: Chronic Qualifiers: Hypertension type: essential hypertension History of Present Illness Date of Admission: 07/09/18 Chief Complaint: Abnormal blood work The patient is a 58 year old M with PMHx of CAD s/p stent, hypertension, hyperlipidemia, IBAN was recently discharged with TIA comes in from his PCPs office with abnormal blood work. Patient denied any history of bleeding, denied any melena stools. He denied any fever or chills. He admits to recently having upper respiratory symptoms with gastroenteritis 5 days prior to admission. Vitals in the ED show blood pressure 132/83, temperature 97.8 F, heart rate 56, respiratory rate 18, SPO2 98% on room air. His WBC count is 6.5, hemoglobin is 12.6, platelet count is 7 BMP is unremarkable. Past Medical History Past Medical History (Chronic Problems): Chronic Problems (Last Updated 07/03/18 @ 16:04 by Shereen Fernando) CAD (coronary artery disease) (Chronic) IBAN (obstructive sleep apnea) (Chronic) Thrombocytopenia (Chronic) Presence of stent in coronary artery (Chronic ~08/2008) PTCA/BMS to distal RCA 08/2008 @ [facility] Hyperlipidemia (Chronic) Atherosclerotic heart disease of [place] coronary artery without angina pectoris (Chronic) PTCA/BMS to distal RCA 08/2008 @ [facility] Hypertension (Chronic) Medical History: Medical History (Last Updated 07/03/18 @ 16:04 by Shereen Fernando) Hyperlipidemia (Chronic) E78.5 Atherosclerotic heart disease of [place] coronary artery without angina pectoris (Chronic) I25.10 PTCA/BMS to distal RCA 08/2008 @ [facility] History of acute inferior wall myocardial infarction (Acute) I25.2 Hypertension (Chronic) I10 Hypertension I10 IBAN (obstructive sleep apnea) G47.33 Allergies No Known Allergies Allergy (Verified 07/09/18 16:00) Home Medications: Ambulatory Orders Medication Instructions Recorded aspirin 81 mg tablet,delayed 81 mg PO DAILY 09/04/17 release carvedilol 25 mg tablet 25 mg PO BID 09/04/17 Losartan/Hydrochlorothiazide 1 tab PO DAILY 06/28/18 [Losartan-Hctz 100-25 mg Tab] Surgical History: Surgical History (Last Reviewed 06/30/18 @ 10:06 by Del Mello MD) Presence of stent in coronary artery (Chronic) Onset Date: ~08/2008 Z95.5 PTCA/BMS to distal RCA 08/2008 @ [facility] Postsurgical percutaneous transluminal coronary angioplasty (PTCA) status Onset Date: ~08/2008 Z98.61 PTCA/BMS to distal RCA 08/2008 @ [facility] History of left knee surgery Z98.890 History of right knee surgery Z98.890 Surgical History: - - BL Knee arthroscopy, septoplasty, s/p cardiacx stent in 2007 Psychiatric History: No pertinent psych hx Lives: Spouse/ Significant Other Smoking Status: Never smoker Tobacco Use: Non-smoker Alcohol: None Drugs: None - *Family History Paternal Family History: Family History (Last Reviewed 06/30/18 @ 10:06 by Del Mello MD) Father CAD (coronary artery disease) Myocardial infarction, Onset Age: 42 Sister Hypertension History Items: Heart Disease Maternal Family History: Family History (Last Reviewed 06/30/18 @ 10:06 by Del Mello MD) Father CAD (coronary artery disease) Myocardial infarction, Onset Age: 42 Sister Hypertension History Items: Cancer - colon Review of Systems Constitutional: Denies: Anorexia, Chills, Fever, Malaise, Weakness, Weight Change Eyes: Denies: Blurred vision, Cataracts, Conjunctivae Inflammation, Pain, Redness, Vision Change HEENT: Denies: Difficulty Hearing, Difficulty Swallowing, Head Aches, Hearing Changes, Nasal bleeding, Nasal Congestion, Sinus Congestion, Sinus Drainage, Sore Throat Cardiovascular: Denies: Chest Pain, Claudication, Orthopnea, Palpitations, Paroxysmal Noc. Dyspnea Respiratory: Denies: Cough, Hemoptysis, Shortness of breath at rest, Shortness of breath upon exertion, Sputum production Gastrointestinal: Denies: Abdominal Pain, Nausea, Vomiting Genitourinary: Denies: Dysuria, Frequency, Incontinence, Nocturia Musculoskeletal: Denies: Joint Pain, Joint stiffness, Joint swelling, Joint Tenderness Skin: Denies: Rash, Wounds Neurological: Denies: Difficulty swallowing, Focal weakness, Numbness, Tingling Psychiatric: Denies: Anxiety, Depression, Homicidal Ideations, Suicidal Ideations Hematologic/ Lymphatic: Denies: Easy Bruising, Easy Bleeding VTE Information - Inpt Only VTE Present on Admission: No VTE Pharm Prophylaxis ordered?: Yes - Physical Exam General: Alert, Oriented x3, Cooperative, No apparent distress HEENT: Atraumatic, PERRLA, EOMI, Normocephalic Oral: Moist Mucosa Neck: Supple, No JVD, Negative Carotid Bruits Lungs: Clear to auscultation, Normal air movement Cardiovascular: Regular rate, Regular Rhythm, Normal S1, Normal S2, No murmurs Abdomen: Bowel Sounds Present, Soft, Non Tender, Non-Distended, No Hepato- splenomegaly Extremities: No edema Skin: No rashes, No breakdown Musculoskeletal: No Tenderness to Palpation of Joints or Extremities Lymphatic: No Cervical, Supraclavicular, or Inguinal Adenopathy Neurological: Cranial nerves II-XII grossly intact, Neuro grossly intact Psych/Mental Status: Normal Affect, Appropriate Vital Signs Temp Pulse Resp BP Pulse Ox 97.8 F 52 L 16 142/79 H 98 07/09/18 15:57 07/09/18 17:18 07/09/18 17:18 07/09/18 17:18 07/09/18 17:18 Oxygen Delivery Method Room Air Weight: 99.79 kg Body Mass Index (BMI) 32.5 Finger Stick Blood Glucose 75 Laboratory Tests Past 24 Hrs 07/09/18 07/09/18 16:25 16:25 WBC Pending RBC Pending Hgb Pending Hct Pending MCV Pending MCH Pending MCHC Pending RDW Pending RDW Differential Pending Plt Count Pending Neut % (Auto) Pending Absolute Neuts (auto) Pending Total Counted Pending Sodium 140 Potassium 3.7 Chloride 108 H Carbon Dioxide 27.0 Anion Gap 5 BUN 18 Creatinine 1.00 Estim Creat Clear Calc 80.52 Est GFR (MDRD) Af Amer 99 Est GFR (MDRD) Non-Af 82 BUN/Creatinine Ratio 18.0 Glucose 94 Calcium 8.7 Assessment/Plan All Active Problems (Last Updated 07/03/18 @ 16:04 by Shereen Fernando) CVA (cerebral vascular accident) (Acute) Dysarthria (Acute) Paresthesia of right arm (Acute) History of acute inferior wall myocardial infarction (Acute) 58 year old M with PMHx of CAD s/p stent, hypertension, hyperlipidemia, IBAN was recently discharged with TIA comes in from his PCPs office with abnormal blood work. 1. Severe thrombocytopenia, no signs of bleeding, secondary to ITP, less likely TTP seen by hematology in the emergency department -discussed with hematology, started on Decadron in the emergency department Plan to continue on Decadron 40 mg p.o. daily in a.m., trend CBC D 2. Recent TIA, aspirin discontinued, continue on blood pressure medications 3. CAD status post stent in 2007, not on aspirin, continue on carvedilol 4. Hypertension, controlled, continue losartan, hydrochlorothiazide Monitor vitals closely 5. DVT PPx- SCDs Code Visit Inpatient E&M: 50374 Init Hosp L3
--- NOTE | 2018-07-09 17:59 | NURSING ---
MED SURG SEVERE THROMBOCYTOPENIA PAINTSIL
[2018-07-09 18:14] LABS: Absolute Lymphocyte Count 1.18 X10^3/ul (0.83-4.51); Absolute Neutrophil Count 4.6 X10^3/uL (2.0-7.7); Basophil# 0.03 X10^3/uL; Basophil% 0.5 % (0-1); Eosinophil# 0.16 X10^3/uL; Eosinophils% 2.5 % (0-5); Hematocrit 36.4 % (40-54); Hemoglobin 12.6 g/dl (13.0-16.5); Lymphocyte # 1.18 X10^3/ul (4.0); Lymphocyte % 18.1 % (19-41); Mean Corp Hgb Conc 34.6 g/gl (32-36); Mean Corpuscular Hgb 29.4 pg (27.0-32.0); Mean Corpuscular Volume 84.8 fL (80-94); Monocyte# 0.57 X10^3/uL; Monocyte% 8.7 % (0-10); Neutrophil # 4.55 X10^3/uL (2.7-7.7); Neutrophil % 69.7 % (47-70); RBC Distribution Width SD 39.5 fl (35.1-43.9); Red Blood Count 4.29 M/mm3 (4.6-6.2); White Blood Count 6.5 K/mm3 (4.4-11.0)
[2018-07-09 18:16] LABS: Platelet Count 7 K/mm3 (150-450)
[2018-07-09 18:17] LABS: POSITIVE COUNT YES; POSITIVE DIFFERENTIAL NO; POSITIVE MORPHOLOGY YES
[2018-07-09 18:18] LABS: Differential Indicated SCAN CRITERIA MET
[2018-07-09 18:19] LABS: Platelet Estimate MKD DEC (ADEQ); Red Cell Morphology NORM C+C NORMAL (NORM C&C)
--- NOTE | 2018-07-09 18:28 | ED.RN ---
Called [facility] to check on bed, states they will text when they are ready.
[2018-07-09 18:58] VITALS: BP 154/77; PULSE 53; RESP 16; TEMP 36.7; O2SAT 98
[2018-07-09 19:27] VITALS: BMI 32.1
[2018-07-09 19:34] VITALS: BMI 32.1
[2018-07-09] MEDS: Carvedilol 25 MG Tablet PO (22:32)
[2018-07-10 00:25] VITALS: BP 150/80; PULSE 58; RESP 18; TEMP 36.3; O2SAT 95
--- NOTE | 2018-07-10 05:55 | US_ITS ---
STUDY: RENAL ULTRASOUND - COMPLETE REASON FOR EXAM: Male, 58 years old. Abnormal labs, history of polycystic kidney disease TECHNIQUE: Ultrasound evaluation of the kidneys was performed with real-time and static hall-scale imaging. COMPARISON: None. FINDINGS: RIGHT KIDNEY: Normal location of the right kidney, which is normal in size. The right kidney measures 11.1 cm. There is a normal cortex of the right kidney. The renal cortex measures 1.4 cm. There is no right renal mass or cyst. There are no right renal calculi. There is no right hydronephrosis. DISTAL RIGHT URETER: There is non-visualization of the distal right ureter. There is no demonstrated right ureterovesical junction calculus. LEFT KIDNEY: Normal location of the left kidney, which is normal in size. The left kidney measures 11.9 cm. There is a normal cortex of the left kidney. The renal cortex measures 1.5 cm. There is no left renal mass or cyst. There are no left renal calculi. There is no left hydronephrosis. DISTAL LEFT URETER: There is non-visualization of the distal left ureter. There is no demonstrated left ureterovesical junction calculus. BLADDER: The urinary bladder is collapsed. US/Kidney and Bladder IMPRESSION: Normal ultrasound of the kidneys . The urinary bladder is collapsed. Electronically Signed: Elizabeth Perry, at 16:15 EDT Tel , Service support ,
[2018-07-10 06:10] VITALS: BP 148/82; PULSE 51; RESP 18; TEMP 36.6; O2SAT 97
[2018-07-10 06:42] LABS: Absolute Lymphocyte Count 0.56 X10^3/ul (0.83-4.51); Absolute Neutrophil Count 6.6 X10^3/uL (2.0-7.7); Basophil# 0.01 X10^3/uL; Basophil% 0.1 % (0-1); Hematocrit 38.7 % (40-54); Hemoglobin 13.5 g/dl (13.0-16.5); Lymphocyte # 0.56 X10^3/ul (4.0); Lymphocyte % 7.7 % (19-41); Mean Corp Hgb Conc 34.9 g/gl (32-36); Mean Corpuscular Hgb 29.5 pg (27.0-32.0); Mean Corpuscular Volume 84.5 fL (80-94); Monocyte# 0.07 X10^3/uL; Neutrophil # 6.58 X10^3/uL (2.7-7.7); Neutrophil % 90.2 % (47-70); RBC Distribution Width CV 12.9 % (11.6-14.6); RBC Distribution Width SD 39.4 fl (35.1-43.9); Red Blood Count 4.58 M/mm3 (4.6-6.2); White Blood Count 7.3 K/mm3 (4.4-11.0)
[2018-07-10 06:51] LABS: Differential Indicated SCAN CRITERIA MET; POSITIVE COUNT YES; POSITIVE DIFFERENTIAL YES; POSITIVE MORPHOLOGY YES
[2018-07-10 06:52] LABS: Platelet Count 16 K/mm3 (150-450)
[2018-07-10 07:00] LABS: Differential Comment SCANNED; Platelet Estimate MKD DEC (ADEQ)
[2018-07-10 07:24] VITALS: BP 149/75; PULSE 52; RESP 16; TEMP 36.5; O2SAT 97
--- NOTE | 2018-07-10 08:28 | PCM.PROGNOTE ---
Subjective: Chief complaint: Follow-up after admission for severe thrombocytopenia likely secondary to ITP. Patient seen and examined. No acute events overnight. He has no specific complaints. Denied epistaxis, gum bleeding, hemoptysis, hematemesis, hematochezia, melena or hematuria. He has petechial skin rash mainly on the upper thighs and buttocks. His vital signs are stable. - Physical Exam General: Alert, Oriented x3, Cooperative, No apparent distress HEENT: Atraumatic, PERRLA, EOMI, Normocephalic Oral: Moist Mucosa, No Gingival or Mucosal Lesions/ Ulcerations Neck: Supple, No JVD, Negative Carotid Bruits, Trachea Midline, Thyroid Normal Size and Texture Lungs: Clear to auscultation, Normal air movement, No rhonchi, No wheeze, No rales Cardiovascular: Regular rate, Regular Rhythm, Normal S1, Normal S2, No murmurs, PMI Normal Abdomen: Bowel Sounds Present, Soft, Non Tender, Non-Distended, No Hepato-splenomegaly Extremities: No clubbing, No cyanosis, No edema Skin: No rashes, No breakdown, Rash Present - Petechial skin rash on both upper thighs anteriorly and posteriorly as well as buttocks. Lymphatic: No Cervical, Supraclavicular, or Inguinal Adenopathy Neurological: Cranial nerves II-XII grossly intact, Motor Exam 5/5 strength throughout Psych/Mental Status: Normal Affect, Appropriate, Alert and oriented to time, place, person, mood and affect Vital Signs Temp Pulse Resp BP Pulse Ox 97.7 F L 52 L 16 149/75 H 97 07/10/18 07:24 07/10/18 07:24 07/10/18 07:24 07/10/18 07:24 07/10/18 07:24 Oxygen Flow Rate (L/min) 2 Oxygen Delivery Method Room Air Weight: 220 lb 7.396 oz Body Mass Index (BMI) 32.1 Finger Stick Blood Glucose 75 Intake and Output for Last 24 Hours 07/08/18 07/09/18 07/10/18 23:59 23:59 23:59 Intake Total 700 / 700 Balance 700 / 700 Laboratory Tests Past 24 Hrs 07/09/18 07/09/18 07/10/18 16:25 16:25 05:10 WBC 6.5 7.3 RBC 4.29 L 4.58 L Hgb 12.6 L 13.5 Hct 36.4 L 38.7 L MCV 84.8 84.5 MCH 29.4 29.5 MCHC 34.6 34.9 RDW 13.0 12.9 RDW Differential 39.5 39.4 Plt Count 7 L* 16 L* Immature Gran % (Auto) 0.500 1.000 H Neut % (Auto) 69.7 90.2 H Lymph % (Auto) 18.1 L 7.7 L Norman % (Auto) 8.7 1.0 Eos % (Auto) 2.5 0.0 Baso % (Auto) 0.5 0.1 Absolute Neuts (auto) 4.6 6.6 Absolute Lymphs (auto) 1.18 0.56 L Total Counted Not Reportable Not Reportable Differential Comment SCANNED Diff Path Review May foll May foll Platelet Estimate MKD DEC MKD DEC RBC Morphology NORM C+C Sodium 140 Potassium 3.7 Chloride 108 H Carbon Dioxide 27.0 Anion Gap 5 BUN 18 Creatinine 1.00 Estim Creat Clear Calc 80.52 Est GFR (MDRD) Af Amer 99 Est GFR (MDRD) Non-Af 82 BUN/Creatinine Ratio 18.0 Glucose 94 Calcium 8.7 Medical Necessity - Tobacco Use Smoking Status: Never smoker Tobacco Use: Non-smoker Assessment/Plan All Active Problems (Last Updated 07/03/18 @ 16:04 by Shereen Fernando) Thrombocytopenia (Acute) This is a 58 years old male patient admitted to the hospital because he was found to have severe thrombocytopenia on a routine blood work that was done as outpatient and just thrombocytopenia attributed to probable ITP. #1 severe thrombocytopenia: Working diagnosis is ITP. Patient was started on oral Decadron. He has no evidence of active bleeding. He does have skin rash on buttocks and thighs. Platelet count slightly improved after Decadron. Hematology consulted. Plan to continue same treatment, repeat CBC tomorrow morning. Will check LFT, pro time and INR. #2 CAD status post stents: Stable, no acute issues, continue Coreg and losartan. Aspirin held because of severe thrombocytopenia. #3 hypertension: Blood pressure stable, continue losartan, HCTZ and Coreg. #4 hyperlipidemia: He is not on statins. #5 DVT prophylaxis: SCDs, no chemical prophylaxis because of severe thrombocytopenia. This note was generated with [employer] software. It may contain incorrect words, spelling, and punctuation that were not noted in checking the note before signing. Code Visit Inpatient E&M: 16026 Subs Hosp L2
--- NOTE | 2018-07-10 09:05 | ONC.CON.INP2 ---
- Problem List (1) Thrombocytopenia Status: Acute Consult Referring Physician: Hospitalist service Consult Results: Severe acute thrombocytopenia, ITP Subjective Date of Service:: 07/09/18 Chief Complaint: Rash, low platelet count History of Present Illness: Patient is a 58-year-old gentleman hospitalized with acute severe thrombocytopenia less than 10K on July 09, 2018. A low platelet count of 51K was first noted on June 28, 2018 when he was hospitalized following a transient (less than 1 hour) episode of focal neurologic symptoms. He was fully evaluated by neurology and was felt to have had a typical migraine. The patient was then discharged and referred to hematology outpatient clinic for further evaluation of his thrombocytopenia. Since his discharge he noticed increasing rash over his lower extremities, was seen at his PCP office and a repeat platelet count of 9K was noted, see table for trend. Laboratory Tests 12/15/13 11/20/14 06/28/18 10:44 09:20 15:40 Plt Count 191 211 51 L 06/29/18 06/30/18 07/09/18 05:15 05:25 10:21 Plt Count 49 L* 48 L* 9 L* 07/09/18 16:25 Plt Count 7 L* Apart from the rash he is unaware of any other external bleeding. He feels generally well and his neurologic complaints never recurred. Past Medical History: Chronic Problems (Last Updated 07/10/18 @ 11:56 by Shania Reddy MD) CAD (coronary artery disease) (Chronic) IBAN (obstructive sleep apnea) (Chronic) Presence of stent in coronary artery (Chronic ~08/2008) PTCA/BMS to distal RCA 08/2008 @ [facility] Hyperlipidemia (Chronic) Atherosclerotic heart disease of [place] coronary artery without angina pectoris (Chronic) PTCA/BMS to distal RCA 08/2008 @ [facility] Hypertension (Chronic) Past Medical/Surgical History: Past Medical History - Most Recent Inpatient Visit Past Medical History Start: 07/09/18 18:58 Text: Status: Complete Freq: ONCE Protocol: Document 07/09/18 19:34 CDS (Rec: 07/09/18 19:36 CDS [id number]) BMI Required to complete PMH What is Patient's BMI 32.1 Past Medical History Unable History Recalled No Query Text:Pt Unable/Family Not Present Neurologic Medical History Hx Stroke/TIA No Hx Dementia/Alzheimer's No Hx Parkinson's Disease No Hx Seizures No Hx Multiple Sclerosis No Hx Migraines Yes: in the past Cardiac Medical History VTE Present on Admission No Hx of Deep Vein Thrombosis/VTE/PE No Hx Hypertension Yes Hx Chest Pain/Angina No Hx Heart Attack Yes Hx Cardiac Surgery/Stents/Etc. Yes: stent x1 2008 [facility] Hx Heart Failure No Hx Pacemaker/AICD No Hx Irregular Heartbeat and/or Afib No Hx Anticoagulant Therapy Yes: ASA Query Text:(Coumadin, Aspirin, Plavix, Xarelto, etc.) Hx Pain in Legs when Walking/Leg Cramps Yes: mild RLS Respiratory Medical History Hx COPD No Hx Emphysema No Hx Smoking No Smoking Status Never smoker Hx Smoking Cessation Counseling No Hx Tobacco Use in last 12 months No Hx Sleep Apnea Yes: cpap CPAP Yes BIPAP No STOP Results Positive GI Medical History Hx Ulcer No Hx Hepatitis No Hx Cirrhosis No Hx GI Bleed No Hx Unplanned Weight Loss No Genitourinary Medical History Indwelling Catheter in Place on Arrival/ No Admission Hx Renal Disease No Hx Dialysis No Musculoskeletal History Hx Arthritis Yes: mild in back Hx Rheumatoid Arthritis No Endocrine Medical History Hx Diabetes No Hx Thyroid Disease No Hematologic Medical History Hx of Blood Transfusion No Hx of Transfusion in last 3 Months No Ever experience any problems with No transfusion(s)? Hx of Preganancy in last 3 Months N/A Nurse Filling Out Transfusion & CSNYDER Questions: Date: 07/09/18 Time: 19:36 Psycho/Social Medical History Hx Depression No Hx Anxiety No Hx Behavior Disorder No Hx Alcohol Use Yes: rare Hx Substance Use No Other Medical History Hx Blood Disorders No Hx Anemia No Hx Cancer No Hx Drug Resistant Organism No Wound/Pressure Injury Present on Arrival No /Admission Query Text:If yes, chart assessment in Shift/Clinical Findings Central Line/PICC/VAD Present on Arrival No /Admission Risk for Readmission Number of Risk Factors 3 At Risk for Readmission Patient is At Risk For Readmission Patient is eligible for Call Back Y Past Medical History (Last Updated 07/03/18 @ 16:04 by Shereen Fernando) Hyperlipidemia (Chronic) Atherosclerotic heart disease of [place] coronary artery without angina pectoris (Chronic) History of acute inferior wall myocardial infarction (Acute) Hypertension (Chronic) Hypertension (Chronic) IBAN (obstructive sleep apnea) (Chronic) Past Surgical History (Last Reviewed 06/30/18 @ 10:06 by Del Mello MD) Presence of stent in coronary artery (Chronic ~08/2008) Postsurgical percutaneous transluminal coronary angioplasty (PTCA) status (Chronic ~08/2008) History of left knee surgery (Resolved) History of right knee surgery (Resolved) Paternal Family History: Family History (Last Reviewed 06/30/18 @ 10:06 by Del Mello MD) Father CAD (coronary artery disease) Myocardial infarction, Onset Age: 42 Sister Hypertension Family History: Heart Disease Maternal Family History: Family History (Last Reviewed 06/30/18 @ 10:06 by Del Mello MD) Father CAD (coronary artery disease) Myocardial infarction, Onset Age: 42 Sister Hypertension Family History: Cancer - colon - Social History Lives: Spouse/ Significant Other Smoking Status: Never smoker Tobacco Use: Non-smoker Alcohol: None Drugs: None Allergies/Adverse Reactions: Allergy/AdvReac Type Severity Reaction Status Date / Time No Known Allergies Allergy Verified 07/09/18 16:00 Review of Systems Constitutional:: Denies: Fever, Sweats, Weight loss, Appetite change, Chills Cardiovascular:: Denies: Chest pain, Palpitations, Dyspnea on exertion, Orthopnea, PND, Shortness of breath Respiratory: Denies: Cough, Hemoptysis, Shortness of Breath, Wheezing Gastrointestinal:: Denies: Abdominal pain, Nausea, Vomiting, Diarrhea, Constipation, Hematochezia Genitourinary: Denies: Dysuria, Hematuria, 15, Flank pain Musculoskeletal:: Denies: Back pain, Myalgia, Arthralgia Skin: Reports: Rash - Lower extremities, not itchy. Denies: Skin Changes, Wounds Neurological:: Denies: Headache, Dizziness, Visual changes, Tinnitus, Hearing loss Psychiatric: Denies: Anxiety, Depression, Homicidal Ideations, Suicidal Ideations Vital Signs Height 5 ft 9.5 in Weight: 100 kg Weight in Pounds 220.5 lbs Pulse Ox 97 Temperature 97.7 F Pulse Rate 52 Respiratory Rate 16 Blood Pressure 149/75 Blood Pressure Position Semi-Fowlers - Physical Exam General: Alert, Oriented x3, No apparent distress HEENT: Atraumatic, PERRLA, EOMI, Normocephalic Oropharynx:: Dry mucosa Neck:: Supple, Trachea midline. Negative for: JVD, bilateral Cardiac:: Regular rate, Regular rhythm, Normal S1, Normal S2. Negative for: Murmur Lungs: Clear to auscultation, Excusion symmetrical. Negative for: Rhonchi, Wheezes Abdomen:: Bowel sounds x 4, Soft, Non-tender, Non-distended. Negative for: Hepatosplenomegaly Extremities:: Negative for: Cyanosis, Edema Neurological: Neuro grossly intact Skin:: Petechiae - Purpura over the lower extremities, nonblanching. Negative for: Lesions, Ecchymosis Psychiatric:: Appropriate affect, Euthymic Lymphatics:: Negative for: Cervical lymphadenopathy, Supraclavicular lymphadenopathy, Axillary lymphadenopathy Laboratory Data: Laboratory Tests 07/09/18 07/09/18 Range/Units 16:25 16:25 WBC 6.5 (4.4-11.0) K/mm3 RBC 4.29 L (4.6-6.2) M/mm3 Hgb 12.6 L (13.0-16.5) g/dl Hct 36.4 L (40-54) % MCV 84.8 (80-94) fL MCH 29.4 (27.0-32.0) pg MCHC 34.6 (32-36) g/gl RDW 13.0 (11.6-14.6) % RDW Differential 39.5 (35.1-43.9) fl Plt Count 7 L* (150-450) K/mm3 Immature Gran % (Auto) 0.500 (0.0-0.9) % Neut % (Auto) 69.7 (47-70) % Lymph % (Auto) 18.1 L (19-41) % [place] % (Auto) 8.7 (0-10) % Eos % (Auto) 2.5 (0-5) % Baso % (Auto) 0.5 (0-1) % Absolute Neuts (auto) 4.6 (2.0-7.7) X10^3/uL Absolute Lymphs (auto) 1.18 (0.83-4.51) X10^3/ul Total Counted Not Reportable Differential Comment Diff Path Review May foll Platelet Estimate MKD DEC (ADEQ) RBC Morphology NORM C+C (NORM C&C) NORMAL Sodium 140 (136-145) mmol/L Potassium 3.7 (3.5-5.1) mmol/L Chloride 108 H (98-107) mmol/L Carbon Dioxide 27.0 (21.0-32.0) mmol/L Anion Gap 5 (5-15) BUN 18 (7-18) mg/dL Creatinine 1.00 (0.70-1.30) mg/dL Estim Creat Clear Calc 80.52 ml/min Est GFR (MDRD) Af Amer 99 (>60) mL/min Est GFR (MDRD) Non-Af 82 (>60) mL/min BUN/Creatinine Ratio 18.0 (10-20) RATIO Glucose 94 (74-106) mg/dL Calcium 8.7 (8.5-10.1) mg/dL I personally reviewed the patient's peripheral blood smear, the myeloid and erythroid lineages are unremarkable. There is severe thrombocytopenia Assessment and Plan 58-year-old gentleman with acute severe isolated thrombocytopenia. The findings are most consistent with immune thrombocytopenia (ITP) Recommendation: Oral high-dose steroids, 40 mg Decadron daily x4 and assess blood counts daily. Impression and plan discussed with patient and Medications: Medications Added to Medication List This Visit Category Date Time Status Dexamethasone [Decadron] Med 07/10/18 08:00 Active 40 mg PO DAILY@0800 Hydrochlorothiazide [Hctz] Med 07/10/18 10:00 Active 25 mg PO DAILY Losartan Potassium [Cozaar] Med 07/10/18 10:00 Active 100 mg PO DAILY Primary Care Provider: Devika rAcos MD Referring Provider:
[2018-07-10] MEDS: hydroCHLOROthiazide 25 MG Tablet PO (09:09)
[2018-07-10] MEDS: Losartan Potassium 100 MG Tablet PO (09:09)
[2018-07-10] MEDS: Carvedilol 25 MG Tablet PO ×2 (09:09→21:24)
[2018-07-10 11:21] VITALS: BP 132/75; PULSE 58; RESP 16; TEMP 36.9; O2SAT 95
[2018-07-10 12:41] LABS: AST(SGOT) 28 U/L (15-37); Alanine Aminotransfer ALT/SGPT 39 U/L (16-61); Albumin, Serum 3.7 g/dL (3.2-5.0); Alkaline Phosphatase 84 U/L (45-117); Bilirubin, Direct 0.13 mg/dL (0.00-0.30); Globulin 3.5 g/dL (2.2-4.2); Protein, Total 7.2 g/dL (6.4-8.2)
--- NOTE | 2018-07-10 13:05 | CASEMGMT ---
RN CM Assessment Presentation: Thrombocytopenia, likely secondary to ITP. Started on Decadron. PLT count 7. Intro role of CM and purpose of RN CM assessment. Demographics, PCP and Pharmacy verified. PCP: Dr. Millard Specialists: Dr. Vela Preferred Pharmacy: [facility] Insurance: [place] Prescription Benefit: yes LNOK: , Maribell Navarro Living Arrangements: independently lives with . Denies needing assistance with care needs. Transportation:drives DME: none HHC: none Patient DC goals:Home DC PLAN: Home. No needs identified @ this time. Facundo OWENN RN ACM
[2018-07-10 13:50] LABS: Pathologist Review Reviewed
[2018-07-10 14:27] VITALS: BP 123/67; PULSE 62; RESP 16; TEMP 36.6; O2SAT 95
--- NOTE | 2018-07-10 14:32 | PN_ITS ---
- Problem List (1) Thrombocytopenia Status: Acute Subjective Date of Service:: 07/10/18 Rash, low platelet count Patient is a 58-year-old gentleman hospitalized with acute severe thrombocytopenia less than 10K on July 09, 2018. A low platelet count of 51K was first noted on June 28, 2018 when he was hospitalized following a transient (less than 1 hour) episode of focal neurologic symptoms. He was fully evaluated by neurology and was felt to have had a typical migraine. The patient was then discharged and referred to hematology outpatient clinic for further evaluation of his thrombocytopenia. Since his discharge he noticed increasing rash over his lower extremities, was seen at his PCP office and a repeat platelet count of 9K was noted, see table for trend. Laboratory Tests 12/15/13 11/20/14 06/28/18 10:44 09:20 15:40 Plt Count 191 211 51 L 06/29/18 06/30/18 07/09/18 05:15 05:25 10:21 Plt Count 49 L* 48 L* 9 L* 07/09/18 16:25 Plt Count 7 L* Apart from the rash he is unaware of any other external bleeding. He feels generally well and his neurologic complaints never recurred. Rash on lower extremities unchanged, no bleeding from nose, gum, GI or urinary tracts Past Medical History: Chronic Problems (Last Updated 07/10/18 @ 11:56 by Shania Reddy MD) CAD (coronary artery disease) (Chronic) IBAN (obstructive sleep apnea) (Chronic) Presence of stent in coronary artery (Chronic ~08/2008) PTCA/BMS to distal RCA 08/2008 @ [facility] Hyperlipidemia (Chronic) Atherosclerotic heart disease of [place] coronary artery without angina pectoris (Chronic) PTCA/BMS to distal RCA 08/2008 @ [facility] Hypertension (Chronic) Past Medical History - Most Recent Inpatient Visit Past Medical History Start: 07/09/18 18:58 Text: Status: Complete Freq: ONCE Protocol: Document 07/09/18 19:34 CDS (Rec: 07/09/18 19:36 CDS [id number]) BMI Required to complete PMH What is Patient's BMI 32.1 Past Medical History Unable History Recalled No Query Text:Pt Unable/Family Not Present Neurologic Medical History Hx Stroke/TIA No Hx Dementia/Alzheimer's No Hx Parkinson's Disease No Hx Seizures No Hx Multiple Sclerosis No Hx Migraines Yes: in the past Cardiac Medical History VTE Present on Admission No Hx of Deep Vein Thrombosis/VTE/PE No Hx Hypertension Yes Hx Chest Pain/Angina No Hx Heart Attack Yes Hx Cardiac Surgery/Stents/Etc. Yes: stent x1 2008 [facility] Hx Heart Failure No Hx Pacemaker/AICD No Hx Irregular Heartbeat and/or Afib No Hx Anticoagulant Therapy Yes: ASA Query Text:(Coumadin, Aspirin, Plavix, Xarelto, etc.) Hx Pain in Legs when Walking/Leg Cramps Yes: mild RLS Respiratory Medical History Hx COPD No Hx Emphysema No Hx Smoking No Smoking Status Never smoker Hx Smoking Cessation Counseling No Hx Tobacco Use in last 12 months No Hx Sleep Apnea Yes: cpap CPAP Yes BIPAP No STOP Results Positive GI Medical History Hx Ulcer No Hx Hepatitis No Hx Cirrhosis No Hx GI Bleed No Hx Unplanned Weight Loss No Genitourinary Medical History Indwelling Catheter in Place on Arrival/ No Admission Hx Renal Disease No Hx Dialysis No Musculoskeletal History Hx Arthritis Yes: mild in back Hx Rheumatoid Arthritis No Endocrine Medical History Hx Diabetes No Hx Thyroid Disease No Hematologic Medical History Hx of Blood Transfusion No Hx of Transfusion in last 3 Months No Ever experience any problems with No transfusion(s)? Hx of Preganancy in last 3 Months N/A Nurse Filling Out Transfusion & CSNYDER Questions: Date: 07/09/18 Time: 19:36 Psycho/Social Medical History Hx Depression No Hx Anxiety No Hx Behavior Disorder No Hx Alcohol Use Yes: rare Hx Substance Use No Other Medical History Hx Blood Disorders No Hx Anemia No Hx Cancer No Hx Drug Resistant Organism No Wound/Pressure Injury Present on Arrival No /Admission Query Text:If yes, chart assessment in Shift/Clinical Findings Central Line/PICC/VAD Present on Arrival No /Admission Risk for Readmission Number of Risk Factors 3 At Risk for Readmission Patient is At Risk For Readmission Patient is eligible for Call Back Y Past Medical History (Last Updated 07/03/18 @ 16:04 by Shereen Fernando) Hyperlipidemia (Chronic) Atherosclerotic heart disease of [place] coronary artery without angina pectoris (Chronic) History of acute inferior wall myocardial infarction (Acute) Hypertension (Chronic) Hypertension (Chronic) IBAN (obstructive sleep apnea) (Chronic) Past Surgical History (Last Reviewed 06/30/18 @ 10:06 by Del Mello MD) Presence of stent in coronary artery (Chronic ~08/2008) Postsurgical percutaneous transluminal coronary angioplasty (PTCA) status (Chron ic ~08/2008) History of left knee surgery (Resolved) History of right knee surgery (Resolved) Paternal Family History: Family History (Last Reviewed 06/30/18 @ 10:06 by Del Mello MD) Father CAD (coronary artery disease) Myocardial infarction, Onset Age: 42 Sister Hypertension Family History: Heart Disease Maternal Family History: Family History (Last Reviewed 06/30/18 @ 10:06 by Del Mello MD) Father CAD (coronary artery disease) Myocardial infarction, Onset Age: 42 Sister Hypertension Family History: Cancer - colon - Social History Lives: Spouse/ Significant Other Smoking Status: Never smoker Tobacco Use: Non-smoker Alcohol: None Drugs: None Review of Systems Constitutional:: Denies: Fever, Sweats, Weight loss, Appetite change, Chills Cardiovascular:: Denies: Chest pain, Palpitations, Dyspnea on exertion, Orthopnea, PND, Shortness of breath Respiratory: Denies: Cough, Hemoptysis, Shortness of Breath, Wheezing Gastrointestinal:: Denies: Abdominal pain, Nausea, Vomiting, Diarrhea, Constipation, Hematochezia Genitourinary: Denies: Dysuria, Hematuria, 15, Flank pain Musculoskeletal:: Denies: Back pain, Myalgia, Arthralgia Skin: Reports: Rash, - - A bruise over the right knee following trauma last week. Denies: Skin Changes, Wounds Neurological:: Denies: Headache, Dizziness, Visual changes, Tinnitus, Hearing loss Psychiatric: Denies: Anxiety, Depression, Homicidal Ideations, Suicidal Ideations Vital Signs Height 5 ft 9.5 in Weight: 100 kg Weight in Pounds 220.5 lbs Pulse Ox 95 Temperature 98.4 F Pulse Rate 58 Respiratory Rate 16 Blood Pressure 132/75 Blood Pressure Position Sitting - Physical Exam General: Alert, Oriented x3, No apparent distress Neurological: Neuro grossly intact Skin:: Petechiae, Ecchymosis - Right knee, all trauma a week earlier Laboratory Data: Laboratory Tests 07/10/18 07/09/18 07/09/18 Range/Units 05:10 16:25 16:25 WBC 7.3 (4.4-11.0) K/mm3 RBC 4.58 L (4.6-6.2) M/mm3 Hgb 13.5 (13.0-16.5) g/dl Hct 38.7 L (40-54) % MCV 84.5 (80-94) fL MCH 29.5 (27.0-32.0) pg MCHC 34.9 (32-36) g/gl RDW 12.9 (11.6-14.6) % RDW Differential 39.4 (35.1-43.9) fl Plt Count 16 L* (150-450) K/mm3 Immature Gran % (Auto) 1.000 H (0.0-0.9) % Neut % (Auto) 90.2 H (47-70) % Lymph % (Auto) 7.7 L (19-41) % [place] % (Auto) 1.0 (0-10) % Eos % (Auto) 0.0 (0-5) % Baso % (Auto) 0.1 (0-1) % Absolute Neuts (auto) 6.6 (2.0-7.7) X10^3/uL Absolute Lymphs (auto) 0.56 L (0.83-4.51) X10^3/ul Total Counted Not Reportable Differential Comment SCANNED Diff Path Review Reviewed Platelet Estimate MKD DEC (ADEQ) RBC Morphology (NORM C&C) NORMAL Sodium 140 (136-145) mmol/L Potassium 3.7 (3.5-5.1) mmol/L Chloride 108 H (98-107) mmol/L Carbon Dioxide 27.0 (21.0-32.0) mmol/L Anion Gap 5 (5-15) BUN 18 (7-18) mg/dL Creatinine 1.00 (0.70-1.30) mg/dL Estim Creat Clear Calc 80.52 ml/min Est GFR (MDRD) Af Amer 99 (>60) mL/min Est GFR (MDRD) Non-Af 82 (>60) mL/min BUN/Creatinine Ratio 18.0 (10-20) RATIO Glucose 94 (74-106) mg/dL Calcium 8.7 (8.5-10.1) mg/dL Total Bilirubin 0.60 (0.20-1.00) mg/dL Direct Bilirubin 0.13 (0.00-0.30) mg/dL AST 28 (15-37) U/L ALT 39 (16-61) U/L Alkaline Phosphatase 84 (45-117) U/L Total Protein 7.2 (6.4-8.2) g/dL Albumin 3.7 (3.2-5.0) g/dL Globulin 3.5 (2.2-4.2) g/dL 07/09/18 Range/Units 16:25 WBC 6.5 (4.4-11.0) K/mm3 RBC 4.29 L (4.6-6.2) M/mm3 Hgb 12.6 L (13.0-16.5) g/dl Hct 36.4 L (40-54) % MCV 84.8 (80-94) fL MCH 29.4 (27.0-32.0) pg MCHC 34.6 (32-36) g/gl RDW 13.0 (11.6-14.6) % RDW Differential 39.5 (35.1-43.9) fl Plt Count 7 L* (150-450) K/mm3 Immature Gran % (Auto) 0.500 (0.0-0.9) % Neut % (Auto) 69.7 (47-70) % Lymph % (Auto) 18.1 L (19-41) % [place] % (Auto) 8.7 (0-10) % Eos % (Auto) 2.5 (0-5) % Baso % (Auto) 0.5 (0-1) % Absolute Neuts (auto) 4.6 (2.0-7.7) X10^3/uL Absolute Lymphs (auto) 1.18 (0.83-4.51) X10^3/ul Total Counted Not Reportable Differential Comment Diff Path Review May foll Platelet Estimate MKD DEC (ADEQ) RBC Morphology NORM C+C (NORM C&C) NORMAL Sodium (136-145) mmol/L Potassium (3.5-5.1) mmol/L Chloride (98-107) mmol/L Carbon Dioxide (21.0-32.0) mmol/L Anion Gap (5-15) BUN (7-18) mg/dL Creatinine (0.70-1.30) mg/dL Estim Creat Clear Calc ml/min Est GFR (MDRD) Af Amer (>60) mL/min Est GFR (MDRD) Non-Af (>60) mL/min BUN/Creatinine Ratio (10-20) RATIO Glucose (74-106) mg/dL Calcium (8.5-10.1) mg/dL Total Bilirubin (0.20-1.00) mg/dL Direct Bilirubin (0.00-0.30) mg/dL AST (15-37) U/L ALT (16-61) U/L Alkaline Phosphatase (45-117) U/L Total Protein (6.4-8.2) g/dL Albumin (3.2-5.0) g/dL Globulin (2.2-4.2) g/dL Assessment and Plan 58-year-old gentleman with acute severe isolated thrombocytopenia. The findings are most consistent with immune thrombocytopenia (ITP). Day 2 of high-dose steroids, platelet count improved but still less than 30 K. Recommendation: Continue with oral high-dose steroids, 40 mg Decadron daily x4 and assess blood counts daily. May go home once platelet count over 30 K and medically stable, with follow-up in hematology outpatient in 1 week. Impression and plan discussed with patient Medications: Medications Added to Medication List This Visit Category Date Time Status Dexamethasone [Decadron] Med 07/10/18 08:00 Active 40 mg PO DAILY@0800 Hydrochlorothiazide [Hctz] Med 07/10/18 10:00 Active 25 mg PO DAILY Losartan Potassium [Cozaar] Med 07/10/18 10:00 Active 100 mg PO DAILY Primary Care Provider: Devika Arcos MD Referring Provider:
[2018-07-10] MEDS: 0.9% NaCl Peripheral Flush Adult/Peds IV (20:28)
[2018-07-10 20:29] VITALS: BP 124/73; PULSE 63; RESP 16; TEMP 36.8; O2SAT 97
[2018-07-10] MEDS: Acetaminophen 325 MG Tablet 650 MG PO (21:24)
[2018-07-11 01:55] VITALS: BP 137/72; PULSE 59; RESP 16; TEMP 37.2; O2SAT 96
[2018-07-11 06:29] LABS: Absolute Lymphocyte Count 0.77 X10^3/ul (0.83-4.51); Absolute Neutrophil Count 16.4 X10^3/uL (2.0-7.7); Basophil# 0.01 X10^3/uL; Basophil% 0.1 % (0-1); Hematocrit 35.7 % (40-54); Hemoglobin 12.4 g/dl (13.0-16.5); Lymphocyte # 0.77 X10^3/ul (4.0); Lymphocyte % 4.3 % (19-41); Mean Corp Hgb Conc 34.7 g/gl (32-36); Mean Corpuscular Hgb 29.6 pg (27.0-32.0); Mean Corpuscular Volume 85.2 fL (80-94); Mean Platelet Vol. 10.9 fl (6.2-12.0); Monocyte# 0.87 X10^3/uL; Monocyte% 4.8 % (0-10); Neutrophil # 16.41 X10^3/uL (2.7-7.7); Neutrophil % 90.6 % (47-70); Platelet Count 67 K/mm3 (150-450); RBC Distribution Width CV 13.2 % (11.6-14.6); RBC Distribution Width SD 40.9 fl (35.1-43.9); Red Blood Count 4.19 M/mm3 (4.6-6.2); White Blood Count 18.1 K/mm3 (4.4-11.0)
[2018-07-11 06:34] LABS: POSITIVE COUNT NO; POSITIVE DIFFERENTIAL NO; POSITIVE MORPHOLOGY NO
[2018-07-11 06:52] LABS: International Normalized Ratio 1.1; Prothrombin Time (Protime)PT. 13.7 SECONDS (11.7-14.9)
[2018-07-11] MEDS: hydroCHLOROthiazide 25 MG Tablet PO (07:53)
[2018-07-11] MEDS: Carvedilol 25 MG Tablet PO (07:53)
[2018-07-11] MEDS: Losartan Potassium 100 MG Tablet PO (07:53)
[2018-07-11 07:55] VITALS: BP 134/70; PULSE 65; RESP 16; TEMP 36.6; O2SAT 96
--- NOTE | 2018-07-11 08:53 | DCINST_ITS ---
You will use the following diet at home:: Cardiac Your food should be the consistency of: Regular Discharge Activity: Return to Normal Activity Weight Bearing Status: Weight bearing as tolerated Call your doctor if you observe: Fever of 101 or Higher, Shortness of breath, Dizziness, Fainting spells, Chest pain, Increased palpitations (irregular heartbeat), Uncontrolled pain Allergies/Adverse Reactions: Allergies No Known Allergies Allergy (Verified 07/09/18 16:00) Medications to take at Discharge aspirin 81 mg tablet,delayed release 81 mg PO DAILY 09/04/17 carvedilol 25 mg tablet 25 mg PO BID 09/04/17 Losartan/Hydrochlorothiazide [Losartan-Hctz 100-25 mg Tab] 1 tab PO DAILY 06/28/18 Dexamethasone [Decadron] 40 mg PO DAILY@0800 #20 tablet 07/11/18 The following prescriptions were given: Dexamethasone [Decadron] 40 mg PO DAILY@0800 #20 tablet Primary Care Physician: Devika Arcos MD [Primary Care Provider] - Please follow up with your Primary Care Physician in: 2-3 WEEKS. Test Results: Test results from this visit will be discussed in further detail at your follow- up appointment, if applicable. Please Follow Up With: Eliz Cristobal MD When: Sunday July 15, 2018
--- NOTE | 2018-07-11 13:53 | DS.PCM_ITS ---
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 - Secondary Discharge Diagnosis Chronic Problems (Last Updated 07/10/18 @ 11:56 by Shania Reddy MD) CAD (coronary artery disease) (Chronic) IBAN (obstructive sleep apnea) (Chronic) Presence of stent in coronary artery (Chronic ~08/2008) PTCA/BMS to distal RCA 08/2008 @ [facility] Hyperlipidemia (Chronic) Atherosclerotic heart disease of [place] coronary artery without angina pectoris (Chronic) PTCA/BMS to distal RCA 08/2008 @ [facility] Hypertension (Chronic) Hospital Course and Treatment Imaging Results: Clinical Impression(s) from Imaging Studies Renal Ultrasound 07/10/18 05:55 IMPRESSION: Normal ultrasound of the kidneys . The urinary bladder is collapsed. Electronically Signed: Elizabeth Perry, at 16:15 EDT Tel , Service support , Dr. Cristobal, hematology/oncology. Operations: None Procedures: None Summary of Care Provided: Patient seen and examined on the day of discharge and appeared to be stable to be discharged home. He denies any complaints. His vital signs are stable. The patient is a 58 year old M was admitted to the hospital because he was found to have severe thrombocytopenia on a routine blood work that was done as outpatient and he was diagnosed with idiopathic thrombocytopenic purpura. Patient did have a rash which was mainly located on the both thighs and buttocks which was petechial rash. There was no evidence of bleeding from body orifices. On admission, his platelet count was 7000. Patient was treated with high-dose dexamethasone and he did respond very well. On the third day, his platelet count went up to 67,000. His pro time INR were normal. His hemoglobin and hematocrit remained stable. His kidney function was normal. His LFT was normal. Because patient has strong family history of polycystic kidney disease, ultrasound kidney was done and it was normal. Patient discharged home in a stable medical condition, discharged on high dose of Decadron according to hematology recommendations to complete 5 days of treatment, plan to follow-up with hematology this coming Sunday, July 15, 2018, recommended follow-up with PCP in 2-3 weeks. - Physical Exam General: Alert, Oriented x3, Cooperative HEENT: Atraumatic, PERRLA, EOMI, Normocephalic Oral: Moist Mucosa, No Gingival or Mucosal Lesions/ Ulcerations Neck: Supple, No JVD, Negative Carotid Bruits, Trachea Midline, Thyroid Normal Size and Texture Lungs: Clear to auscultation, Normal air movement, No rhonchi, No wheeze, No rales Cardiovascular: Regular rate, Regular Rhythm, Normal S1, Normal S2, No murmurs Abdomen: Bowel Sounds Present, Soft, Non Tender, Non-Distended, No Hepato- splenomegaly Extremities: No clubbing, No cyanosis, No edema Skin: No breakdown, Rash Present Lymphatic: No Cervical, Supraclavicular, or Inguinal Adenopathy Neurological: Cranial nerves II-XII grossly intact, Neuro grossly intact Psych/Mental Status: Normal Affect, Appropriate Vital Signs Temp Pulse Resp BP Pulse Ox 97.8 F 65 16 134/70 H 96 07/11/18 07:55 07/11/18 07:55 07/11/18 07:55 07/11/18 07:55 07/11/18 07:55 Oxygen Flow Rate (L/min) 2 Oxygen Delivery Method Room Air Weight: 220 lb 7.396 oz Body Mass Index (BMI) 32.1 Finger Stick Blood Glucose 75 Intake and Output for Last 24 Hours 07/09/18 07/10/18 07/11/18 23:59 23:59 23:59 Intake Total 1600 / 1600 720 / 720 Balance 1600 / 1600 720 / 720 Laboratory Tests Past 24 Hrs 07/11/18 07/11/18 06:15 06:15 WBC 18.1 H RBC 4.19 L Hgb 12.4 L Hct 35.7 L MCV 85.2 MCH 29.6 MCHC 34.7 RDW 13.2 RDW Differential 40.9 Plt Count 67 L MPV 10.9 Immature Gran % (Auto) 0.200 Neut % (Auto) 90.6 H Lymph % (Auto) 4.3 L [place] % (Auto) 4.8 Eos % (Auto) 0.0 Baso % (Auto) 0.1 Absolute Neuts (auto) 16.4 H Absolute Lymphs (auto) 0.77 L Total Counted Not Reportable PT 13.7 INR 1.1 Discharge Activity: Return to Normal Activity Weight Bearing Status: Weight bearing as tolerated Call your doctor if you observe: Fever of 101 or Higher, Shortness of breath, Dizziness, Fainting spells, Chest pain, Increased palpitations (irregular heartbeat), Uncontrolled pain Home Medications: Medications to take at Discharge aspirin 81 mg tablet,delayed release 81 mg PO DAILY 09/04/17 carvedilol 25 mg tablet 25 mg PO BID 09/04/17 Losartan/Hydrochlorothiazide [Losartan-Hctz 100-25 mg Tab] 1 tab PO DAILY 06/28/18 Dexamethasone [Decadron] 40 mg PO DAILY@0800 #20 tablet 07/11/18 Following Prescrptions Were Given to Patient: Dexamethasone [Decadron] 40 mg PO DAILY@0800 #20 tablet Primary Care Physician: Devika Arcos MD [Primary Care Provider] - Please follow up with your Primary Care Physician in: 2-3 WEEKS. Please Follow Up With: lEiz Cristobal MD When: Sunday July 15, 2018 Disposition: Home Minutes spent on discharge:: 27 Patient Condition:: Stable Medical Necessity - Tobacco Use Smoking Status: Never smoker Tobacco Use: Non-smoker Meaningful Use Info Meaningful Use Diagnoses (Choose all that apply): None applicable Code Visit Inpatient E&M: 03585 Disch Hosp
[2018-07-11 14:01] LABS: Pathologist Review Reviewed
== END 2018-07-11 11:08 | disposition home or self-care (01) | DRG 813 ==
LOC: ED 16:37 → MS2 18:07
PROVIDERS: Internal Medicine Hematology & Oncology; Admitting Provider Internal Medicine; Emergency Provider Emergency Medicine; Family Provider Family Medicine; PCP Family Medicine; Visit Provider Hospitalist
DX: D69.3 Immune thrombocytopenic purpura (principal); I25.10 Atherosclerotic heart disease of native coronary artery without angina pectoris; I10 Essential (primary) hypertension; E78.5 Hyperlipidemia, unspecified; G47.33 Obstructive sleep apnea (adult) (pediatric); I25.2 Old myocardial infarction; Z95.5 Presence of coronary angioplasty implant and graft; Z86.73 Personal history of transient ischemic attack (TIA), and cerebral infarction without residual deficits; Z79.82 Long term (current) use of aspirin; Z79.899 Other long term (current) drug therapy; Z82.71 Family history of polycystic kidney
CPT/HCPCS: 36415; 76770; 80048; 80076; 85025; 85610; 99283; A4216

== ENCOUNTER → 2019-02-24 10:09 | Outpatient (CLI) | payer BC, SELFPAY ==
[2019-02-04 10:48] VITALS: BMI 33.5
--- NOTE | 2019-02-24 10:11 | RAD_ITS ---
STUDY: X-RAY - LUMBAR SPINE REASON FOR EXAM: Male, 58 years old. Lower back pain radiating into the left leg. Left foot numbness. TECHNIQUE: 5 view(s) of the lumbar spine were obtained. COMPARISON: None FINDINGS: Normal lumbar lordosis. There is no substantial scoliosis. There is a normal alignment of the vertebrae. There is multilevel endplate spondylosis of the lumbar vertebrae. There is multi-level degenerative disc disease with multi-level disc space narrowing. There is no evidence of acute fracture or loss of vertebral axial height. There is degenerative facet disease without demonstrated spondylolysis of the pars interarticulares. The soft tissue structures are unremarkable. RAD/L/S Spine Min 4 Views IMPRESSION: Degenerative changes of the spine, as detailed above. Electronically Signed: Abraham Majano DO at 17:38 EST Tel [phone], Service support ,
== END ==
LOC: MTRAD 10:10
PROVIDERS: Family Provider Family Medicine; PCP Family Medicine; Referring Provider Family Medicine; Visit Provider Family Medicine
DX: M54.32 Sciatica, left side (principal)
CPT/HCPCS: 72110

== ENCOUNTER 2019-04-21 07:30 | Outpatient (RCR) | payer BC, SELFPAY ==
[2019-02-04 10:48] VITALS: BMI 33.5
--- NOTE | 2019-03-04 12:54 | HP.PTEVAL ---
Patient's Visit Information MELANIE PENA is a 58 year old M referred to Physical Therapy by Devika Arcos MD with a diagnosis of back pain, OA. Date of Evaluation: 03/04/19 Physical Therapist: Dilip Mario, MARIAM, OCS, CSCS - Visit Plan Frequency: 2x /Week Duration: 4-6 Weeks Plan: 2x/week for 4-6 weeks for. 1. LB Tia ext ROM adn progression of forces monitorring L foot numb and tingly. 2. ext mobs L/S. 3. core strength adn upper leg stretches to HEP - Subjective Findings: Back problems. H/O back problems for long time. HNP 4 yrs ago and injection helped and it got better. Recently has been worse for no apparent reason. Works at [employer] and has to lift alot. This incdent was about two weeks ago with L knee OA hurting in L leg. 2 days later woke up with numb L foot. Has been numb ever since. L heel also hurts and outsid eof foot is numb. Pain is constant but worse at times. Hard to get comfortable in bed as it woke him up at 3 oclock last night. Taking ibuprofen. Was given prescription but not taking. Back is not any worse than usual and not hurting alot right now. Walks alot at work and ball of foot gets hot and schultz. Has PFitis as well and wears inserts. Sitting is almost the worst after a while, loosens up with walking. Activities are effected in that he cannot split wood,. Doing what he needs to at work but avoid slifting if he can. - Pain L LE Pain Intensity (Out of 10): 2 Pain Intensity Range: 1, 6 Comment: foot worse than leg. - Objective Walks and transfers slowly but I. Slight L antalgia. Flat lordosis in L/S. L/S ext max limited and produces L LBP, flexion stiff and SB stiff moderately to max but no pain. HS and quad and ITB flexibility max deficits. PA pressure L5 creates more tingling in foot. reflexes 2/3 patella and achilles B. Sensation WNL to gross light touch but L LE feels tingly in foot. Strength LE 4+/5 without myotomal abnormalities. Repeated PPU: B tingling from 4/10 to 1/10 better ext ROM. - Goals Goal 1:: Full L/S AROM without pain Goal Time Frame: 4-6 Weeks Goal 2:: I appropr management HEP with upper leg stretches, LB ROM and core strength. Goal Time Frame: 4-6 Weeks Goal 3:: Pt feel 90% back to normal with activity Goal Time Frame: 4-6 Weeks Goal 4:: Sleep without waking due to pain or tingling. Goal Time Frame: 4-6 Weeks - Rehabilitation Potential Physical Therapy Diagnosis: LBP with radiculopathy Rehabilitation Potential: Good - Anticipated Interventions Patient/Client Instruction: Educate patient on: Condition, Plan of Care For the Purpose of:: To decrease pain, To increase ROM, To improve muscle performance and motor function, To increase tolerance to activity/condition/position Therapeutic Exercise to Include: Strength training, Flexibilty training, Passive ROM, Active ROM, Tia Exercises For the Purpose of:: To decrease pain, To increase ROM, To improve muscle performance and motor function, To increase tolerance to activity/condition/position, To improve ability of physical actions for home/community/work/leisure Manual Therapy Techniques to Include: Mobilization Comment: ext grade 4 L/S T/s For the Purpose of:: To increase ROM Thank you for the opportunity to evaluate your patient. For Medicare and Medicare HMO plans, please review the plan of care and approve it. It will need to be FAXED BACK to us at [phone] for Medicare purposes. For Medicare only, by signing this I certify the plan of care. Please let me know if there are questions or concerns regarding this plan of care. Physician Signature: Date:
--- NOTE | 2019-03-27 16:33 | HP.PTREVAL ---
Devika Arcos MD, It has been my pleasure to treat MELANIE PENA over the last 8 visits for back pain, OA. Please see the progress note below for an update on the physical therapy plan of care! Subjective: No change to overall numbness. Had some random L LE pains yesterday. To 09/02. Little to no back pain. Had chiropractic adjustment. Sleeping is interrupted a couple times per night. Feels pretty good walking but then can get rock feeling in L foot. Admits noncompliance at home but feels better when he stretches. Has not been using roll in car and has been in there 3 hours today. Objective/Function: L/S Ext slow adn painful R LB. LB flexion just tight. Burning and diminished sesation outsid eL foot still problematic and harder to move L pinky toe. overall patient slightly improved, still wants to get in better shape without idea of how to do it himself. Plan Plan: 2x/week for 3 weeks to wrok on gym specific LE adn postural machines, core strength adn CV/calrie burning ex and work toward I at [employer]. Monitor Leg pain, tingling adn LB ROM. Goals Goal 1:: Full L/S AROM without pain Goal Time Frame: 4-6 Weeks Goal Progress: Slow but better. Goal 2:: I appropr management HEP with upper leg stretches, LB ROM and core strength. Goal Time Frame: 4-6 Weeks Goal Progress: Goal Met Goal 3:: Pt feel 90% back to normal with activity Goal Time Frame: 4-6 Weeks Goal Progress: SLOW Goal 4:: Sleep without waking due to pain or tingling. Goal Time Frame: 4-6 Weeks Goal Progress: Not Progressing Goal 5:: I approp gym based general ex to help lose weight adn continue slow LB improvement. Anticipated Interventions Patient/Client Instruction: Educate patient on: Condition, Plan of Care For the Purpose of:: To decrease pain, To increase ROM, To improve muscle performance and motor function, To increase tolerance to activity/condition/position Therapeutic Exercise to Include: Strength training, Flexibilty training, Passive ROM, Active ROM, Adela Exercises For the Purpose of:: To decrease pain, To increase ROM, To improve muscle performance and motor function, To increase tolerance to activity/condition/position, To improve ability of physical actions for home/community/work/leisure Manual Therapy Techniques to Include: Mobilization Comment: ext grade 4 L/S T/s For the Purpose of:: To increase ROM Please do not hesitate to contact me at [phone] by phone or if you have questions or concerns regarding this new plan of care! Sincerely, Dilip Mario, DPT, OCS, CSCS
--- NOTE | 2019-04-21 08:04 | HP.PTDCSUM ---
HP - PT D/C Summary It has been my pleasure to treat MELANIE PENA under orders from Dr. Devika Arcos MD, for the diagnosis of back pain, OA for a total of 13 visit(s). Discharge Date: 04/21/19 Please see the following information for a summary of their discharge status. - Subjective Subjective: Not as much pain. 3-4/10 once in a while without obvious pattern. Sometimes worse in evening walking at end of day it works into mahsa eof L foot. Numbness is still present adn is slightly less intense. Has no f/u scheduled with doctor Josselyn. Ran about a mile and did OK. Activities are pretty normal. Sleep is normal. - Pain L LE Pain Intensity (Out of 10): 0 - Overall Improvement % Improvement: 75 - Objective Objective/Function: L/S AROM is WFL, and only slight central stretching today with ext. Pt thinks this is from chopping wood over the weekend. Otherwise moving well, still tends to flex l/S when sitting. Walks without deficits today. OVERALL DOING WELL, FEELING OF NUMBNESS IN LATERAL L FOOT PERSISTS. - Goals Goal 1:: Full L/S AROM without pain Goal Progress: Goal Met Goal 2:: I appropr management HEP with upper leg stretches, LB ROM and core strength. Goal Progress: Goal Met Goal 3:: Pt feel 90% back to normal with activity Goal Progress: Progressing Goal 4:: Sleep without waking due to pain or tingling. Goal Progress: Goal Met Goal 5:: I approp gym based general ex to help lose weight adn continue slow LB improvement. Goal Progress: Goal Met - Plan Plan: Recommended seeing doctor to review other options with foot numbness despite being much improved and very functional. also , patient is to continue gym workout and home stretches and work on body mechanics and posture with towel roll. D/C at this time. - D/C Information Discharge Comments: Pt doing well but numbness in foot persists. Will continue home stretches and gym workout adn contact doctor regarding other options. If there are questions or concerns regarding this patient's physical therapy, please feel free to call me at [phone]. Thank you for the referral of this patient. Sincerely, Dilip Mario, DPT, OCS, CSCS
== END 2019-04-21 19:00 | disposition home or self-care (01) ==
LOC: PT 07:30
PROVIDERS: Family Provider Family Medicine; PCP Family Medicine; Referring Provider Family Medicine; Visit Provider Family Medicine
DX: M46.90 Unspecified inflammatory spondylopathy, site unspecified (principal); M54.9 Dorsalgia, unspecified
CPT/HCPCS: 97110; 97162; 97530

== ENCOUNTER → 2019-11-13 12:30 | Outpatient (CLI) | payer BC, SELFPAY ==
[2019-02-04 10:48] VITALS: BMI 33.5
--- NOTE | 2019-11-13 13:00 | MRI_ITS ---
STUDY: MRI LUMBAR SPINE WITHOUT CONTRAST REASON FOR EXAM: Male, 59 years old. lumbar radiculopathy, numbness left foot; prev mri 2013 TECHNIQUE: Standardized fat and water weighted pulse sequences were obtained in the sagittal and axial planes. COMPARISON: 11/01/2012 FINDINGS: T12-L1: Normal endplates. Normal disc height, hydration and morphology. Normal bilateral facet joints. Normal central canal and bilateral lateral recesses. Normal bilateral intervertebral neural foramina. Normal lumbar lordosis. There is no substantial scoliosis. Normal conus medullaris that terminates at the L1 level. L1-2: Normal endplates. Normal disc height, hydration and morphology. Normal bilateral facet joints. Normal central canal and bilateral lateral recesses. Normal bilateral intervertebral neural foramina. L2-3: Endplate spondylosis. Decreased disc height and small circumferential disc bulge. Degenerative changes of the bilateral facet joints. Mild narrowing of the central canal and bilateral intervertebral neural foramina. L3-4: Endplate spondylosis. Decreased disc height and small circumferential disc bulge. Degenerative changes of the bilateral facet joints. Mild narrowing of the central canal and bilateral intervertebral neural foramina. L4-5: Endplate spondylosis. Decreased disc height and small circumferential disc bulge. Degenerative changes of the bilateral facet joints. Moderate narrowing of the central canal and bilateral intervertebral neural foramina. L5-S1: Endplate spondylosis. Decreased disc height and small circumferential disc bulge. There is right para midline disc herniation impinging on the right S1 nerve root. Degenerative changes of the bilateral facet joints. Moderate narrowing of the central canal and bilateral intervertebral neural foramina. Normal visualized sacral ala. Normal visualized paraspinous soft tissue structures. MRI/Spine Lumbar (Routine) IMPRESSION: Multilevel degenerative changes, as described above. There is right para midline disc herniation at L5-S1 impinging on the right S1 nerve root. Electronically Signed: Mrailee Rodríguez, at 14:46 EDT Tel , Service support ,
== END ==
PROVIDERS: PCP Family Medicine
DX: M54.16 Radiculopathy, lumbar region (principal); M51.36 Other intervertebral disc degeneration, lumbar region
CPT/HCPCS: 72148

== ENCOUNTER 2021-05-10 10:22 | Outpatient (CLI) | payer BC, SELFPAY ==
[2021-05-10 12:14] LABS: Hematocrit 43.1 % (40-54); Hemoglobin 14.5 g/dL (13.0-16.5); Mean Corp Hgb Conc 33.6 g/dL (32-36); Mean Corpuscular Hgb 29.5 pg (27.0-32.0); Mean Corpuscular Volume 87.8 fL (80-94); Mean Platelet Vol. 10.5 fl (6.2-12.0); Platelet Count 207 K/mm3 (150-450); RBC Distribution Width CV 13.2 % (11.6-14.6); RBC Distribution Width SD 42.7 fl (35.1-43.9); Red Blood Count 4.91 M/mm3 (4.6-6.2); White Blood Count 7.7 K/mm3 (4.4-11.0)
[2021-05-10 12:46] LABS: Hemoglobin A1c 5.3 % (3.8-5.6)
[2021-05-10 12:47] LABS: Homocysteine 9.1 umol/L (3.2-10.7)
[2021-05-10 12:53] LABS: Insulin 13.5 mU/L (2.6-37.6); Vitamin B12 725 pg/mL (211-911); Vitamin D,25 Hydroxy 53.3 ng/mL
[2021-05-10 13:11] LABS: Progesterone Level < 0.21 ng/mL (See Comment)
[2021-05-10 13:46] LABS: AST(SGOT) 30 U/L (15-37); Alanine Aminotransfer ALT/SGPT 54 U/L (16-61); Alkaline Phosphatase 106 U/L (45-117); Anion Gap 7 (5-15); BUN 17 mg/dL (7-18); BUN/Creat Ratio 20.9 RATIO (10-20); CRP, High Sensitivity Cardiac 5.15 mg/L; Chloride 105 mmol/L (98-107); Cholesterol 191 mg/dL (200); Creatinine, Serum 0.81 mg/dL (0.70-1.30); EST Glomerular Filtration Rate 103 mL/min (>60); Est Glom Filt Rate - Afr Amer 124 mL/min (>60); Estradiol 20.9 pg/mL; Ferritin 202 ng/mL (26-388); Free T3 2.6 pg/mL (2.18-3.98); Globulin 4.2 g/dL (2.2-4.2); Glucose 85 mg/dL (74-106); High Density Lipoprotein 63 mg/dL; Iron 73 ug/dL (65-175); Iron Binding Capacity,Total 373 ug/dL (250-450); Magnesium 2.3 mg/dL (1.6-2.6); PSA,Total- Diagnostic 0.42 ng/mL (0.0-4.0); Potassium 3.8 mmol/L (3.5-5.1); Protein, Total 8.2 g/dL (6.4-8.2); Sodium Level 138 mmol/L (136-145); T4 Free Direct 0.98 ng/dL (0.76-1.46); Thyroid Stim Hormone (TSH) 1.16 uIU/mL (0.358-3.74); Triglycerides 64 mg/dL; Uric Acid 3.7 mg/dL (3.5-7.2); Very Low Density Lipoprotein 13 mg/dL (5-40)
[2021-05-10 16:07] LABS: Absolute Lymphocyte Count 0.91 X10^3/uL (0.83-4.51); Basophil# 0.06 X10^3/uL; Basophil% 0.8 % (0-1); Eosinophil# 0.08 X10^3/uL; Eosinophils% 1.1 % (0-5); Lymphocyte # 0.91 X10^3/ul (0.83-4.51); Monocyte# 0.55 X10^3/uL; Monocyte% 7.2 % (0-10); NRBC Flagged by Analyzer 0 % (0-5); Neutrophil # 5.96 X10^3/uL (2.7-7.7); Neutrophil % 78.4 % (47-70)
[2021-05-18 20:08] LABS: Red Blood Cell Count Test/G6PD 4.94 x10E6/uL (4.14-5.80); Somatomedin C 84 ng/mL (68-247); Testosterone, % Free 3.03 % (1.50-4.20); Testosterone, Free 4.42 ng/dL (5.00-21.00); Thyroid Peroxidase AB < 8 IU/mL (0-34)
[2021-05-18 20:36] LABS: Anti-Thyroglobulin AB < 1.0 IU/mL (0.0-0.9); G6PD Quant Test 224 (127-427); Sex Hormone-binding Globulin 38.9 nmol/L (19.3-76.4); T3 Reverse 19.1 ng/dL (9.2-24.1); Testosterone, Total 146 ng/dL (264-916)
[2021-05-18 20:37] LABS: Lipoprotein A 19.6 nmol/L (<75.0); Thyroglobulin, Serum Qt. 11.4 ng/mL (1.4-29.2)
== END 2021-05-10 23:59 | disposition home or self-care (01) ==
PROVIDERS: PCP Family Medicine; Visit Provider Physician Assistant Medical
DX: R53.83 Other fatigue (principal); I21.11 ST elevation (STEMI) myocardial infarction involving right coronary artery; D69.6 Thrombocytopenia, unspecified; I10 Essential (primary) hypertension; Z86.73 Personal history of transient ischemic attack (TIA), and cerebral infarction without residual deficits
CPT/HCPCS: 36415; 80053; 80061; 81291; 82306; 82330; 82533; 82607; 82627; 82670; 82728; 82746; 82955; 83036; 83090; 83525; 83540; 83550; 83695; 83735; 84144; 84153; 84270; 84305; 84402; 84403; 84432; 84439; 84443; 84481; 84482; 84550; 85025; 85027; 86140; 86141; 86376; 86800; 82626

== ENCOUNTER → 2021-09-20 | Outpatient (CLI) | payer BC, SELFPAY ==
[2021-09-20 12:17] LABS: Absolute Lymphocyte Count 1.05 X10^3/uL (0.83-4.51); Absolute Neutrophil Count 10.7 X10^3/uL (2.0-7.7); Basophil# 0.04 X10^3/uL; Basophil% 0.3 % (0-1); Eosinophil# 0.06 X10^3/uL; Eosinophils% 0.5 % (0-5); Hematocrit 37.8 % (40-54); Hemoglobin 12.8 g/dL (13.0-16.5); Lymphocyte # 1.05 X10^3/ul (0.83-4.51); Lymphocyte % 8.3 % (19-41); Mean Corp Hgb Conc 33.9 g/dL (32-36); Mean Corpuscular Hgb 29.2 pg (27.0-32.0); Mean Corpuscular Volume 86.1 fL (80-94); Mean Platelet Vol. 10.3 fl (6.2-12.0); Monocyte# 0.82 X10^3/uL; Monocyte% 6.5 % (0-10); NRBC Flagged by Analyzer 0 % (0-5); Neutrophil # 10.66 X10^3/uL (2.7-7.7); Neutrophil % 83.8 % (47-70); Platelet Count 230 K/mm3 (150-450); RBC Distribution Width CV 13.4 % (11.6-14.6); RBC Distribution Width SD 42.6 fl (35.1-43.9); Red Blood Count 4.39 M/mm3 (4.6-6.2); White Blood Count 12.7 K/mm3 (4.4-11.0)
[2021-09-20 12:42] LABS: Internal QC Validated? YES +Cl - CLEAR BKGD; Monotest Negative (Negative)
== END | disposition home or self-care (01) ==
LOC: MFPLAB 09:33
PROVIDERS: PCP Family Medicine; Visit Provider Family Medicine
DX: R53.83 Other fatigue (principal)
CPT/HCPCS: 36415; 84443; 85025; 86308

== ENCOUNTER → 2021-10-18 | Outpatient (CLI) | payer BC, SELFPAY ==
--- NOTE | 2021-10-18 06:09 | ECHOD_ITS ---
Reason For Study: CHEST PAIN Procedure This was a 2D Doppler, Color Flow transthoracic echocardiogram. The study was technically difficult. Exam performed in department. Left Ventricle Normal LV size. Left ventricular systolic function is normal. The estimated ejection fraction is 55 %. No evidence for diastolic dysfunction. No regional wall motion abnormalities noted. Right Ventricle Normal RV size. Normal systolic function. Atria The left atrium is mildly enlarged. Normal right atrium. No doppler evidence for ASD. Mitral Valve There is no mitral annular calcification. Normal mitral valve. Trivial mitral valve insufficiency. Tricuspid Valve Normal tricuspid valve. Trivial tricuspid valve insufficiency. Unable to estimate RV systolic pressure/pulmonary artery pressure due to technically difficult study. Aortic Valve The aortic valve is not well visualized. Pulmonic Valve The pulmonic valve is not well visualized. Great Vessels Normal sized aortic root. Pericardium/Pleural No pericardial effusion. MMode/2D Measurements & Calculations LVIDd: 5.1 cm IVSd: 0.96 cm Ao root diam: 2.9 cm LVIDs: 3.6 cm LVPWd: 1.1 cm RVDd: 3.7 cm FS: 29.0 % LAV(MOD-bp): 77.3 ml LA A4 area: 22.2 cm2 LA dimension(2D): 4.2 cm LAV(MOD-bp) Indexed: 36.2 ml/m2 LAV(MOD-sp2): 71.0 ml LAV(MOD-sp4): 74.4 ml RA A4 area: 12.8 cm2 Time Measurements MV dec time: 0.23 sec Doppler Measurements & Calculations MV E max manjit: 54.7 cm/sec Lat Peak E' Manjit: 10.4 cm/sec Med Peak E' Manjit: 8.2 cm/sec MV A max manjit: 56.6 cm/sec E/E' lat: 5.3 E/E' med: 6.6 MV E/A: 0.97 MV dec slope: 245.2 cm/sec2 Ao V2 max: 141.9 cm/sec LV V1 max: 89.9 cm/sec Ao max P.1 mmHg LV V1 max P.2 mmHg PA V2 max: 85.0 cm/sec ECHO/Echo Complete Interpretation Summary The study was technically difficult. Left ventricular systolic function is normal. The estimated ejection fraction is 55 %. The left atrium is mildly enlarged. Trivial mitral valve insufficiency. Trivial tricuspid valve insufficiency. Unable to estimate RV systolic pressure/pulmonary artery pressure due to techni jennifer difficult study. No evidence for diastolic dysfunction. Ordering Physician: Chemo Grewal Referring Physician: Devika Arcos Performed By: Mylene Jones, TIM, RVT
--- NOTE | 2021-10-18 12:46 | STRESSREP ---
Stress Test Report Date: 10-18-2021 Procedure: Exercise tolerance test/imaging study Indications: Chest pain; CAD; PCI; IBAN; Parkinson's disease Consent: Per the patient Procedure: The patient exercised on a Roger protocol for 7 minutes and 15 seconds minutes completing Stage II and 1 minute and 15 seconds of Stage III achieving a peak heart rate of 142 bpm (89% predicted maximal heart rate) with a peak blood pressure 210/90 mmHg and a peak MET capacity of 9 METs. The baseline ECG demonstrated sinus bradycardia. The peak exercise ECG demonstrated somatic/motion artifact with no obvious ECG changes. There was a rare PAC/PVC during recovery. The functional capacity was considered good. There was no complaint of chest discomfort during exercise or recovery. The examination was discontinued secondary to dyspnea. Impression: 1. Technically adequate (percent predicted maximal heart rate greater than 85%) exercise tolerance test 2. Peak exercise ECG with somatic/motion artifact with no obvious ECG changes 3. There was a rare PAC/PVC during recovery 4. Nuclear images pending Myocardial perfusion imaging study: Technique: The patient was injected with 14.3 mCi of technetium 99m Cardiolite and subsequently rest SPECT Cardiolite nuclear imaging was obtained in the horizontal long, vertical long, and short axis views. The patient exercised on a Roger protocol for 7 minutes and 15 seconds minutes completing Stage II and 1 minute and 15 seconds of Stage III achieving a peak heart rate of 142 bpm (89% predicted maximal heart rate) with a peak blood pressure 210/90 mmHg and a peak MET capacity of 9 METs. The patient was injected with 44.6 mCi of technetium 99m Cardiolite and subsequently stress SPECT Cardiolite nuclear imaging was obtained in the horizontal long, vertical long, and short axis views. A gated Cardiolite study at peak stress was obtained. Interpretation: Rest and stress SPECT Cardiolite nuclear imaging status post realignment, normalization, and attenuation correction, demonstrates the appearance of relative uniform tracer uptake and myocardial perfusion appearing within normal limits. There is end systolic thickening and brightening. The gated Cardiolite study demonstrates myocardial thickening and inward wall motion. The reported LVEF is 51%. Impression: 1. Rest and stress SPECT Cardiolite nuclear imaging demonstrate relative uniform tracer uptake and myocardial perfusion appearing within normal limits. 2. The gated Cardiolite study reports an LVEF of 51%. This note was generated with [employer] software. It may contain incorrect words, spelling, and punctuation that were not noted in checking the note before signing.
== END | disposition home or self-care (01) ==
LOC: CVS 06:06
PROVIDERS: PCP Family Medicine; Referring Provider Internal Medicine Cardiovascular Disease; Visit Provider Internal Medicine Cardiovascular Disease
DX: R07.9 Chest pain, unspecified (principal); G20 Parkinson's disease; D69.6 Thrombocytopenia, unspecified; G47.33 Obstructive sleep apnea (adult) (pediatric); I10 Essential (primary) hypertension; Z95.5 Presence of coronary angioplasty implant and graft; E78.5 Hyperlipidemia, unspecified; I25.10 Atherosclerotic heart disease of native coronary artery without angina pectoris
CPT/HCPCS: 78452; 93017; 93306; A9500; A4216

== ENCOUNTER 2022-05-17 13:30 | Outpatient (RCR) | payer BC, SELFPAY ==
--- NOTE | 2022-04-21 06:02 | HP.PTEVAL_ITS ---
Patient's Visit Information MELANIE PENA is a 61 year old M referred to Physical Therapy by Dr. Chemo Neil MD with a diagnosis of R lateral epicondylitis. Date of Evaluation: 04/13/22 Physical Therapist: Tod Khan DPT - Visit Plan Frequency: 2x /Week Duration: 4 Weeks Plan: Continue per POC - Subjective Pt. is here today for his initial evaluation with diagnosis of R lateral epicondylitis. Pt. reports having pain for a few months now, but has recently become worse. Increased pain with gripping, lifting, extending wrist. Pain with lifting cup of coffee as well. Pt. reports tender to touch at lateral forearm. Denies N/T and no mech of injury. He reports having brace that he wears at work, but other than that not much has been helpful. Pt. reports no issues with sleeping. He is hopeful to reduce symptoms in order to get back to all work activities without limitations. He also wants to get back into working out, but without pain. No injections or medications have been administered. Pt. works in [employer]. - Pain R lateral forearm Pain Intensity (Out of 10): 5 Pain Intensity Range: 3, 8 - Objective POSTURE: Pt. has normal posture in stance. Slight FH and shoulders, otherwise normal. PALPATION: Pt. has tenderness at lateral epicondyle and along extensor tendon. No pain at rest of elbow or forearm. NEURO: normal. ROM: Pt. has some mild tenderness with end range elbow extension and wrist flexion, worse with movements combined. MMT: patient has 5-/5 B shoulder strength. R elbow 5-/5 no pain. R wrist: ext 4/5 increase NW, flexion 5-/5 mild increase NW, finger extension 5/5 increase in symptoms. Jack Tamp Operator strength: R 90#, L 98#. Pt. is right handed. SPECIAL TESTING: + lateral epicondylitis test, + to palpation at lateral epicondyle., + lopez. - Balance/Special Test Scores Quick DASH Score: 50.0000 - Goals Goal 1:: LTG: Pt. to be I with stretching and eccentric exercises for HEP. Goal Time Frame: 4-6 Weeks Goal 2:: STG: Pt. to have no pain at rest in R elbow. Goal Time Frame: 2 Weeks Goal 3:: LTG: Pt. to complete all work and recreational activities without increase in R elbow pain. Goal Time Frame: 4-6 Weeks Goal 4:: STG: Pt to have no pain with full wrist ROM and finger ROM. Goal Time Frame: 4-6 Weeks Goal 5:: Pt. to have no pain with all lifting and gripping ADLs and work activities. Goal Time Frame: 4-6 Weeks Goal 6:: LTG: Pt. to have 5/5 strength of R wrist and forearm. Goal Time Frame: 4-6 Weeks - Rehabilitation Potential Physical Therapy Diagnosis: Pt. has signs and symptoms consistent with R lateral epicondylitis. Pt. has marked pain at his R extensor group as well as pain with wrist and finger extension. I would like to work on initially reducing his symptoms then progressing to eccentrics once symptoms have started to reduce. Rehabilitation Potential: Excellent - Anticipated Interventions Patient/Client Instruction: Educate patient on: Condition, Plan of Care, Risk Factors, Benefits of Fitness Program For the Purpose of:: To improve health and function, To foster healthy habits, To improve decision making, To facilitate caregiver knowledge, To improve self management, To prevent re-injury, To improve ability to perform tasks related to life management Therapeutic Exercise to Include: Strength training, Power training, Body mechanics, Postural training, Flexibilty training, Passive ROM, Active ROM For the Purpose of:: To decrease pain, To decrease swelling/inflammation, To increase ROM, To improve nutrient delivery to tissue, To increase oxygenation perfusion, To improve muscle performance and motor function, To decrease soft tissue restriction, To increase flexibility/ROM, To improve endurance Manual Therapy Techniques to Include: Trigger point massage, Mobilization For the Purpose of:: To decrease pain, To decrease swelling/inflammation, To increase ROM Ultrasound (thermal/non thermal): Yes For the Purpose of:: To decrease pain, To decrease swelling/inflammation, To increase ROM Thank you for the opportunity to evaluate your patient. For Medicare and Medicare HMO plans, please review the plan of care and approve it. It will need to be FAXED BACK to us at [phone] for Medicare purposes. For Medicare only, by signing this I certify the plan of care. Please let me know if there are questions or concerns regarding this plan of care. Physician Signature: Date:
--- NOTE | 2022-05-17 15:27 | HP.PTREVAL ---
Dr. Chemo Niel MD, It has been my pleasure to treat MELANIE PENA over the last 9 visits for R lateral epicondylitis. Please see the progress note below for an update on the physical therapy plan of care! Subjective: Pt. reports overall doing okay. He is still having some symptoms with gripping, but not as bad. Pt. reports no pain currently. He did have questions about how to progress back into gym and what exercise he could do. Objective/Function: pt. still has a + but less clear + with lateral epicondyle test, he does have some tightness with wrist flexion. Mild increase in symptoms with wrist extension testing. Crossbar Frame Wirer strength is equal but has slight icnrease in symptoms on R side. Pt. is overall improving. He would like to know what exercises he could do and should avoid with getting back into the gym. I will recreat him for 2 visits to progress gym exercises. Plan Plan: Recert for 2 visits to work on gym exercises that are appropriate for him. Balance/Gait/Functional tests - Balance/Special Test Scores Quick DASH Score: 25.0000 Goals Goal 1:: LTG: Pt. to be I with stretching and eccentric exercises for HEP. Goal Time Frame: 4-6 Weeks Goal Progress: Progressing Goal 2:: STG: Pt. to have no pain at rest in R elbow. Goal Time Frame: 2 Weeks Goal Progress: Goal Met Goal 3:: LTG: Pt. to complete all work and recreational activities without increase in R elbow pain. Goal Time Frame: 4-6 Weeks Goal Progress: Progressing Goal 4:: STG: Pt to have no pain with full wrist ROM and finger ROM. Goal Time Frame: 4-6 Weeks Goal Progress: Progressing Goal 5:: Pt. to have no pain with all lifting and gripping ADLs and work activities. Goal Time Frame: 4-6 Weeks Goal Progress: Progressing Goal 6:: LTG: Pt. to have 5/5 strength of R wrist and forearm. Goal Time Frame: 4-6 Weeks Goal Progress: Progressing Anticipated Interventions Patient/Client Instruction: Educate patient on: Condition, Plan of Care, Risk Factors, Benefits of Fitness Program For the Purpose of:: To improve health and function, To foster healthy habits, To improve decision making, To facilitate caregiver knowledge, To improve self management, To prevent re-injury, To improve ability to perform tasks related to life management Therapeutic Exercise to Include: Strength training, Power training, Body mechanics, Postural training, Flexibilty training, Passive ROM, Active ROM For the Purpose of:: To decrease pain, To decrease swelling/inflammation, To increase ROM, To improve nutrient delivery to tissue, To increase oxygenation perfusion, To improve muscle performance and motor function, To decrease soft tissue restriction, To increase flexibility/ROM, To improve endurance Manual Therapy Techniques to Include: Trigger point massage, Mobilization For the Purpose of:: To decrease pain, To decrease swelling/inflammation, To increase ROM Ultrasound (thermal/non thermal): Yes For the Purpose of:: To decrease pain, To decrease swelling/inflammation, To increase ROM Please do not hesitate to contact me at [phone] by phone or if you have questions or concerns regarding this new plan of care! Sincerely, NAPOLEON GarzaT
--- NOTE | 2022-12-26 08:50 | HP.PT.NRP ---
Patient Information Patient Information: MELANIE PENA was seen in my office for initial evaluation on 04/13/22. The following Plan of Care was established for this patient: POC Established Initial Frequency: 2x /Week Initial Duration: 4 Weeks Anticipated Interventions Patient/Client Instruction: Educate patient on: Condition, Plan of Care, Risk Factors and Benefits of Fitness Program For the Purpose of:: To improve health and function, To foster healthy habits, To improve decision making, To facilitate caregiver knowledge, To improve self management, To prevent re-injury and To improve ability to perform tasks related to life management Therapeutic Exercise to Include: Strength training, Power training, Body mechanics, Postural training, Flexibilty training, Passive ROM and Active ROM For the Purpose of:: To decrease pain, To decrease swelling/inflammation, To increase ROM, To improve nutrient delivery to tissue, To increase oxygenation perfusion, To improve muscle performance and motor function, To decrease soft tissue restriction, To increase flexibility/ROM and To improve endurance Manual Therapy Techniques to Include: Trigger point massage and Mobilization For the Purpose of:: To decrease pain, To decrease swelling/inflammation and To increase ROM Ultrasound (thermal/non thermal): Yes For the Purpose of:: To decrease pain, To decrease swelling/inflammation and To increase ROM Last Seen Last Seen: This patient was last seen in our office 05/17/22. Pertinent comments regarding their Physical therapy will appear below: Pt. was seen in PT for her lateral epicondylitis. Pt. was overall doing better, but still having some issues with gripping. He has not been seen in several months and will DC from PT at this point in time. At this point I will be discontinuing this patient from physical therapy. I would be happy to see this patient again in the future if found appropriate by the physician. Thank you! Tod Khan, DPT Balance/Gait/Functional tests Balance/Special Test Scores Quick DASH Score: 25.0000
== END 2022-05-17 19:00 | disposition home or self-care (01) ==
LOC: PT 13:30
PROVIDERS: PCP Family Medicine; Visit Provider Family Medicine
DX: M77.11 Lateral epicondylitis, right elbow (principal)
CPT/HCPCS: 97035; 97110; 97140; 97161; 97164

== ENCOUNTER → 2022-09-29 | Outpatient (CLI) | payer BC, SELFPAY ==
[2022-09-29 18:10] LABS: Absolute Lymphocyte Count 1.09 X10^3/uL (0.83-4.51); Absolute Neutrophil Count 6.3 X10^3/uL (2.0-7.7); Basophil# 0.05 X10^3/uL; Basophil% 0.6 % (0-1); Eosinophil# 0.15 X10^3/uL; Eosinophils% 1.8 % (0-5); Hemoglobin 12.6 g/dL (13.0-16.5); Lymphocyte # 1.09 X10^3/ul (0.83-4.51); Lymphocyte % 12.8 % (19-41); Mean Corp Hgb Conc 32.3 g/dL (32-36); Mean Corpuscular Hgb 29.2 pg (27.0-32.0); Mean Corpuscular Volume 90.5 fL (80-94); Mean Platelet Vol. 10.6 fl (6.2-12.0); Monocyte# 0.91 X10^3/uL; Monocyte% 10.7 % (0-10); NRBC Flagged by Analyzer 0 % (0-5); Neutrophil # 6.27 X10^3/uL (2.7-7.7); Neutrophil % 73.3 % (47-70); Platelet Count 273 K/mm3 (150-450); RBC Distribution Width CV 13.2 % (11.6-14.6); RBC Distribution Width SD 43.9 fl (35.1-43.9); Red Blood Count 4.31 M/mm3 (4.6-6.2); White Blood Count 8.5 K/mm3 (4.4-11.0)
== END | disposition home or self-care (01) ==
LOC: MFPLAB 16:04
PROVIDERS: PCP Family Medicine; Visit Provider Family Medicine
DX: D69.1 Qualitative platelet defects (principal)
CPT/HCPCS: 36415; 85025

== ENCOUNTER 2023-12-11 08:00 | Outpatient (RCR) | payer OTHER, SELFPAY ==
--- NOTE | 2023-11-28 15:45 | HP.PTEVAL ---
Patient's Visit Information Visit Information Visit Information: MELANIE PENA is a 63 year old M referred to Physical Therapy by Dr. Devika Arcos MD with a diagnosis of PD. Date of Evaluation: 11/28/23 Physical Therapist: SUE Alcantar Visit Plan Frequency: 1x/Week Duration: 6 Weeks Plan: Next visit... 2 min walk test, TUG, 30 sec sit to stand. Review [employer] gym routine and give couple of postural exercises and standing dual task opp arm and leg 1X/ week for 6 weeks for learning of indep HEP and gym routine Subjective Subjective: Pt was Dx with PD during COVID. He has been doing the PD class for about 3 weeks. He has lots of issues. He has PD and the rigidity factor is there and hard to get down the steps first thing in the morning. He had a HD L4/L5 and his L foot is numb for last 6 years. He has issues with R shoulder and R knee. He still works at [employer] in the [employer] and on his feet all the time. He started with PD on the R side at rest. He is not taking meds for PD at this time. He has an appt in Nov with a neurologist. His R shoulder not as much mobility. He can not lay on his R hip. He walks a lot at work. He walked a few miles this morning. His daughter notices that his limping. Stairs: He feels weaker in his Quads. He alternates and holds onto the railing. He keeps trying to balance to put his socks. He has trouble if he sits too long it is hard to get not stiff and hard to get out of a civic. He is able to get up off the floor and pushes up on things. He notices that his mental side he has hard to concentrate. Anxiety is also part of things. He does trip on his L foot at times. He does not sleep well... He wakes up at 1:00am and not able to get back to sleep. He does use a CPAP. Pain L ankle pain: Pain Intensity (Out of 10): 1 Comment: numbess Objective Objective: Gait: walks with a normal gait pattern other than decrease stance time on the L LE Pt is able to walk on heels and toes without issue LE MMT: 4/5 hip flex, knee ext and flex, Bridge 3/5 normal ROM FGA: 2830 Standing opp arm and leg: able to do 10 on each side in a row once got started and same with BW Pt is able to get out of a chair without the use of his UE's LTR: tight B sides Supine wand flexion (R arm pains at approx 120 degrees) Balance/Special Test Scores Functional Gait Assessment Score: 28 % Disability: 6.6700 Lower Extremity Functional Score: 65 Goals Goal 1:: I HEP Goal Time Frame: 2-4 Weeks Goal 2:: I H&W routine Goal Time Frame: 2-4 Weeks Goal 3:: Improve walking with head turns without veering or LOB Rehabilitation Potential Rehabilitation Potential: Good Anticipated Interventions Patient/Client Instruction: Educate patient on: Condition and Plan of Care For the Purpose of:: To improve muscle performance and motor function, To improve ability to perform ADL's, To increase tolerance to activity/condition/position, To improve performance and independence with ADL's, To decrease level of supervision to perform tasks, To improve ability of physical actions for home/community/work/leisure, To improve gait and locomotor functions, To improve health of tissue, To decrease soft tissue restriction, To increase flexibility/ROM, To improve endurance, To improve balance and To improve safety with gait Therapeutic Exercise to Include: Strength training, Endurance training, Balance training, Body mechanics, Postural training, Flexibilty training, Gait and locomotor training, Neuromotor development, Active ROM and Dynamic Lumbar Stabilization For the Purpose of:: To decrease pain, To increase ROM, To improve nutrient delivery to tissue, To increase oxygenation perfusion, To improve muscle performance and motor function, To improve ability to perform ADL's, To increase tolerance to activity/condition/position, To improve performance and independence with ADL's, To decrease level of supervision to perform tasks, To improve ability of physical actions for home/community/work/leisure, To improve gait and locomotor functions, To improve health of tissue, To decrease soft tissue restriction, To increase flexibility/ROM, To improve endurance and To improve balance Functional Training to Include: Gait training For the Purpose of:: To improve gait and locomotor functions and To assume or resume ADL's Text: Thank you for the opportunity to evaluate your patient. For Medicare and Medicare HMO plans, please review the plan of care and approve it. It will need to be FAXED BACK to us at [phone] for Medicare purposes. For Medicare only, by signing this I certify the plan of care. Please let me know if there are questions or concerns regarding this plan of care. Physician Signature: Date:
--- NOTE | 2024-01-29 07:21 | HP.PT.NRP ---
Patient Information Patient Information: MELANIE PENA was seen in my office for initial evaluation on 11/28/23. The following Plan of Care was established for this patient: POC Established Initial Frequency: 1x/Week Initial Duration: 6 Weeks Anticipated Interventions Patient/Client Instruction: Educate patient on: Condition and Plan of Care For the Purpose of:: To improve muscle performance and motor function, To improve ability to perform ADL's, To increase tolerance to activity/condition/position, To improve performance and independence with ADL's, To decrease level of supervision to perform tasks, To improve ability of physical actions for home/community/work/leisure, To improve gait and locomotor functions, To improve health of tissue, To decrease soft tissue restriction, To increase flexibility/ROM, To improve endurance, To improve balance and To improve safety with gait Therapeutic Exercise to Include: Strength training, Endurance training, Balance training, Body mechanics, Postural training, Flexibilty training, Gait and locomotor training, Neuromotor development, Active ROM and Dynamic Lumbar Stabilization For the Purpose of:: To decrease pain, To increase ROM, To improve nutrient delivery to tissue, To increase oxygenation perfusion, To improve muscle performance and motor function, To improve ability to perform ADL's, To increase tolerance to activity/condition/position, To improve performance and independence with ADL's, To decrease level of supervision to perform tasks, To improve ability of physical actions for home/community/work/leisure, To improve gait and locomotor functions, To improve health of tissue, To decrease soft tissue restriction, To increase flexibility/ROM, To improve endurance and To improve balance Functional Training to Include: Gait training For the Purpose of:: To improve gait and locomotor functions and To assume or resume ADL's Last Seen Last Seen: This patient was last seen in our office 12/11/23. Pertinent comments regarding their Physical therapy will appear below: DC PT At this point I will be discontinuing this patient from physical therapy. I would be happy to see this patient again in the future if found appropriate by the physician. Thank you! Carito Masters, SUE Balance/Gait/Functional tests Balance/Special Test Scores Functional Gait Assessment Score: 28 % Disability: 6.6700 Lower Extremity Functional Score: 65
== END 2023-12-11 19:00 | disposition home or self-care (01) ==
LOC: PT 08:00
PROVIDERS: PCP Family Medicine; Referring Provider Family Medicine; Visit Provider Family Medicine
DX: G20.A1 Parkinson's disease without dyskinesia, without mention of fluctuations (principal)
CPT/HCPCS: 97110; 97161

== ENCOUNTER 2024-05-28 08:30 | Outpatient (RCR) | payer OTHER, SELFPAY ==
--- NOTE | 2024-04-22 08:33 | HP.PTEVAL_ITS ---
Patient's Visit Information Visit Information Visit Information: MLEANIE PENA is a 63 year old M referred to Physical Therapy by Dr. Devika Arcos MD with a diagnosis of R shoulder tendinitis. Date of Evaluation: 04/14/24 Physical Therapist: Tod Khan DPT Visit Plan Frequency: 2x /Week Duration: 6 Weeks Plan: 1) inferior mobs with flexion and abduction, AAROM 2) RTC, scapular strengthening 3) DFM biceps may us US initially for pain control Subjective Subjective: Pt. is here today for his initial evaluation with diagnosis of R shoulder tendinitis. Pt. reports having increased R shoulder pain for a few months now. Pt. reports that his arm bothers him reaching, lifting, sleeping and ADLs. Pt. reports no N/T in either UE. Pt. reports not doing any exercises yet. No imaging as well. Pt. reaching increased pain with reaching behind and with dressing. Pt. feels like his arm is hard to lift at times, mostly due to pain. Pt. reports weakness in his arm as well, but is more so secondary to pain. He is hopeful to reduce symptoms in order to get back to all recreational activities without limitations. Pain R shoulder: Pain Intensity (Out of 10): 2 Pain Intensity Range: 0 and 6 Objective Objective: POSTURE: Pt. has slight foward head posture. pt. has rounded shoulders bilaterally. PALPATION: pt. has increased tenderness at long head of biceps and anterior shoulder. Pain with palpation in groove. NEURO: normal throughout BUEs. ROM: PROM: L shoulder full motion no issues. AROM: L shoulder full motion. R shoulder: flexion 110deg increase NW, abd 90deg increase NW, functional ER C2, functional IR L5. Pt. has increased pain as limiting factor with all active motions. MMT: L shoulder: flexion 5/5, abd 5/5, ext 5/5, ER 5-/5, IR 5/5. R shoulder: flexion 4/5 increase NW, abd 4/5 increase NW, ER 5-/5 NE, IR 5/5 NE. Special Tests R Shoulder Empty Can - SS: Negative R Shoulder Belly Press - SupScap: Negative R Shoulder Neer - Impingement: Positive R Shoulder Muñoz Zac - Impingement: Positive R Shoulder Speeds Test - Labrum/Biceps: Positive Balance/Special Test Scores Quick DASH Score: 25.0000 Goals Goal 1:: LTG: Pt. to be I with HEP. Goal Time Frame: 4-6 Weeks Goal 2:: STG: Pt. to sleep throughout the night without increase in symptoms. Goal Time Frame: 2-4 Weeks Goal 3:: LTG: Pt. to have full R shoulder AROM without increase in symptoms. Goal Time Frame: 4-6 Weeks Goal 4:: LTG: Pt. to have 5/5 strength throughout R shoulder and scapular musculature. Goal Time Frame: 4-6 Weeks Goal 5:: LTG: Pt. to complete all ADLs without increase in symptoms. Goal Time Frame: 4-6 Weeks Rehabilitation Potential Physical Therapy Diagnosis: Pt. has has signs and symptoms consistent with R shoulder tendinitis. Pt. has marked hypomobility, weakness, increased pain. Pt. would benefit from PT to address the above limitations progressing back to all functional activities. Rehabilitation Potential: Good Anticipated Interventions Patient/Client Instruction: Educate patient on: Condition, Plan of Care, Risk Factors and Benefits of Fitness Program For the Purpose of:: To foster healthy habits, To improve decision making, To facilitate caregiver knowledge, To improve self management, To prevent re-injury and To improve ability to perform tasks related to life management Therapeutic Exercise to Include: Strength training, Power training, Body mechanics, Postural training, Passive ROM and Active ROM For the Purpose of:: To decrease pain, To increase ROM, To improve nutrient delivery to tissue, To increase oxygenation perfusion, To improve muscle performance and motor function, To improve ability to perform ADL's, To increase tolerance to activity/condition/position, To improve performance and independe nce with ADL's, To decrease soft tissue restriction and To increase flexibility/ROM Manual Therapy Techniques to Include: Mobilization and Passive ROM For the Purpose of:: To decrease pain, To decrease swelling/inflammation, To increase ROM and To improve nutrient delivery to tissue Ultrasound (thermal/non thermal): Yes For the Purpose of:: To decrease pain, To decrease swelling/inflammation, To increase ROM, To improve nutrient delivery to tissue, To increase oxygenation perfusion and To improve muscle performance and motor function Text: Thank you for the opportunity to evaluate your patient. For Medicare and Medicare HMO plans, please review the plan of care and approve it. It will need to be FAXED BACK to us at [phone] for Medicare purposes. For Medicare only, by signing this I certify the plan of care. Please let me know if there are questions or concerns regarding this plan of care. Physician Signature: Date:
== END 2024-05-28 19:00 | disposition home or self-care (01) ==
LOC: PT 08:30
PROVIDERS: PCP Family Medicine; Referring Provider Family Medicine; Visit Provider Family Medicine
DX: M77.8 Other enthesopathies, not elsewhere classified (principal)
CPT/HCPCS: 97110; 97140; 97161

== ENCOUNTER → 2024-07-22 | Outpatient (CLI) | payer OTHER, SELFPAY ==
[2024-07-22 09:50] LABS: Ionized Calcium Order ORDER TUBE
[2024-07-22 12:38] LABS: Hematocrit 40.6 % (40-54); Hemoglobin 13.6 g/dL (13.0-16.5); Mean Corp Hgb Conc 33.5 g/dL (32-36); Mean Corpuscular Hgb 29.5 pg (27.0-32.0); Mean Corpuscular Volume 88.1 fL (80-94); Mean Platelet Vol. 10.9 fl (6.2-12.0); Platelet Count 119 K/mm3 (150-450); RBC Distribution Width CV 13.1 % (11.6-14.6); RBC Distribution Width SD 41.8 fl (35.1-43.9); Red Blood Count 4.61 M/mm3 (4.6-6.2); White Blood Count 6.1 K/mm3 (4.4-11.0)
[2024-07-22 12:45] LABS: Hemoglobin A1c 5.5 % (<=5.6)
[2024-07-22 13:13] LABS: ALB/GLOB Ratio 1.3 RATIO (0.9-2.4); AST(SGOT) 36 U/L (<=37); Alanine Aminotransfer ALT/SGPT 32 U/L (<=46); Albumin, Serum 4.3 g/dL (3.4-4.8); Alkaline Phosphatase 130 U/L (40-129); Anion Gap 12 (5-15); BUN 20 mg/dL (4-19); BUN/Creat Ratio 22.1 RATIO (10-20); Chloride 103 mmol/L (98-108); Cholesterol 198 mg/dL (<=200); Creatinine, Serum 0.92 mg/dL (0.70-1.20); EST Glomerular Filtration Rate 93 (>60); Estradiol 9.9 pg/mL; Ferritin 269 ng/mL (37-417); Free T3 2.7 pg/mL (2.18-3.98); Globulin 3.2 g/dL (2.2-4.2); Glucose 94 mg/dL (70-99); High Density Lipoprotein 43 mg/dL; Low Density Lipoprotein Calc. 129 mg/dL; PSA,Total- Diagnostic 0.34 ng/mL (0.00-4.00); Potassium 4.1 mmol/L (3.3-5.1); Protein, Total 7.5 g/dL (5.9-8.4); Sodium Level 136 mmol/L (133-145); Total Bilirubin 0.36 mg/dL (0.00-1.30); Triglycerides 129 mg/dL; Very Low Density Lipoprotein 26 mg/dL (5-40); Vitamin B12 674 pg/mL (180-914); Vitamin D,25 Hydroxy 35.1 ng/mL (30-100)
[2024-07-22 13:16] LABS: Ionized Calcium 1.16 mmol/L (1.09-1.30)
[2024-07-22 13:19] LABS: FOLATES,SERUM (FOLIC ACID) 5.56 ng/mL (4.60-34.80)
[2024-07-22 14:01] LABS: CRP 5.65 mg/L (0.0-3.0); Magnesium 2.2 mg/dL (1.5-2.2); Uric Acid 3.9 mg/dL (3.5-7.2)
[2024-07-22 14:13] LABS: Iron 60 ug/dL (65-175); Iron Binding Capacity,Total 319 ug/dL (250-450); Iron Binding Capacity,Unsat 259 ug/dL (228-428)
[2024-07-24 04:07] LABS: PROGESTERONE 0.5 ng/mL (0.0-0.5)
== END | disposition home or self-care (01) ==
LOC: MTLAB 08:48
PROVIDERS: PCP Family Medicine
DX: I10 Essential (primary) hypertension (principal); E55.9 Vitamin D deficiency, unspecified; E29.1 Testicular hypofunction; Z86.73 Personal history of transient ischemic attack (TIA), and cerebral infarction without residual deficits; R53.83 Other fatigue
CPT/HCPCS: 36415; 80053; 80061; 82306; 82330; 82533; 82607; 82627; 82670; 82728; 82746; 83036; 83090; 83525; 83540; 83550; 83695; 83735; 84144; 84153; 84270; 84402; 84403; 84432; 84439; 84443; 84481; 84482; 84550; 85027; 86140; 86376; 86800; 82626

== ENCOUNTER → 2024-10-08 | Outpatient (CLI) | payer OTHER, SELFPAY ==
[2024-10-08 08:20] LABS: Mucous, Urine 0 SEEN /hpf (<or=2+); Red Blood Cells-Urine 0 SEEN /hpf (0-5); Squamous Epithelial Cells - UA 0 SEEN /hpf (0-5)
[2024-10-08 10:50] LABS: Hematocrit 41.7 % (40-54); Hemoglobin 13.9 g/dL (13.0-16.5); Mean Corp Hgb Conc 33.3 g/dL (32-36); Mean Corpuscular Volume 85.6 fL (80-94); Mean Platelet Vol. 10.4 fl (6.2-12.0); POSITIVE COUNT YES; Platelet Count 93 K/mm3 (150-450); RBC Distribution Width CV 13.0 % (11.6-14.6); RBC Distribution Width SD 40.5 fl (35.1-43.9); Red Blood Count 4.87 M/mm3 (4.6-6.2); White Blood Count 7.1 K/mm3 (4.4-11.0)
[2024-10-08 10:51] LABS: Scan Indicated on CBC? Y/N YES- FLAGS NOTED
[2024-10-08 11:16] LABS: Differential Comment SCANNED
[2024-10-08 12:26] LABS: Color, Urine Yellow (Yellow); Glucose, Dipstick Normal (Normal); Ketone-Dipstick Negative (Negative); Leukocyte Esterase-Dipstick Negative /ul (Negative); Nitrite-Dipstick Negative (Negative); Occult Blood-Urine Negative /ul (Negative); Protein-Dipstick Negative (Negative); Specific Gravity, Urine 1.010 (1.002-1.030); Urine Bilirubin Dipstick Negative (Negative)
[2024-10-08 12:34] LABS: AST(SGOT) 32 U/L (<=37); Alanine Aminotransfer ALT/SGPT 50 U/L (<=46); Albumin, Serum 4.2 g/dL (3.4-4.8); Alkaline Phosphatase 147 U/L (40-129); Anion Gap 12 (5-15); BUN 15 mg/dL (4-19); BUN/Creat Ratio 15.7 RATIO (10-20); Calcium,Total 9.4 mg/dL (7.6-11.0); Carbon Dioxide 24.0 mmol/L (21.0-32.0); Chloride 101 mmol/L (98-108); Globulin 3.4 g/dL (2.2-4.2); Glucose 96 mg/dL (70-99); Potassium 4.1 mmol/L (3.3-5.1)
== END | disposition home or self-care (01) ==
PROVIDERS: PCP Family Medicine
DX: E29.1 Testicular hypofunction (principal); I10 Essential (primary) hypertension; R53.83 Other fatigue; E55.9 Vitamin D deficiency, unspecified
CPT/HCPCS: 36415; 80053; 81001; 82274; 84443; 85027

== ENCOUNTER → 2024-10-24 | Outpatient (CLI) | payer OTHER, SELFPAY ==
[2024-10-24 10:28] LABS: Hematocrit 41.4 % (40-54); Hemoglobin 13.9 g/dL (13.0-16.5); Mean Corp Hgb Conc 33.6 g/dL (32-36); Mean Corpuscular Volume 85.0 fL (80-94); Mean Platelet Vol. 11.3 fl (6.2-12.0); POSITIVE COUNT YES; Platelet Count 14 K/mm3 (150-450); RBC Distribution Width CV 13.1 % (11.6-14.6); RBC Distribution Width SD 40.7 fl (35.1-43.9); Red Blood Count 4.87 M/mm3 (4.6-6.2); White Blood Count 6.7 K/mm3 (4.4-11.0)
[2024-10-24 10:29] LABS: Scan Indicated on CBC? Y/N YES- FLAGS NOTED
[2024-10-24 10:54] LABS: AST(SGOT) 31 U/L (<=37); Alanine Aminotransfer ALT/SGPT 51 U/L (<=46); Albumin, Serum 4.4 g/dL (3.4-4.8); Alkaline Phosphatase 156 U/L (40-129); Anion Gap 11 (5-15); BUN 13 mg/dL (4-19); BUN/Creat Ratio 14.1 RATIO (10-20); Calcium,Total 9.3 mg/dL (7.6-11.0); Carbon Dioxide 25.9 mmol/L (21.0-32.0); Chloride 102 mmol/L (98-108); Ferritin 323 ng/mL (37-417); Globulin 3.1 g/dL (2.2-4.2); Glucose 96 mg/dL (70-99); Iron 63 ug/dL (65-175); Iron Binding Capacity,Total 305 ug/dL (250-450); Iron Binding Capacity,Unsat 242 ug/dL (228-428); Potassium 4.4 mmol/L (3.3-5.1)
[2024-10-24 11:04] LABS: Differential Comment SCANNED
== END | disposition home or self-care (01) ==
LOC: MTLAB 09:29
DX: I10 Essential (primary) hypertension (principal); R53.83 Other fatigue; E55.9 Vitamin D deficiency, unspecified; E29.1 Testicular hypofunction
CPT/HCPCS: 36415; 80053; 82728; 83540; 83550; 84443; 85027

== ENCOUNTER 2024-10-27 14:57 | Emergency (ER) | payer OTHER, SELFPAY ==
[2024-10-27 14:58] VITALS: BP 181/83; PULSE 63; RESP 18; TEMP 36.6; O2SAT 99; BMI 34.3
[2024-10-27 16:57] VITALS: BP 184/102; PULSE 55; RESP 18; O2SAT 98
[2024-10-27 18:00] VITALS: BP 180/96; PULSE 55; RESP 18; O2SAT 99
[2024-10-27 18:31] LABS: Hematocrit 41.5 % (40-54); Hemoglobin 13.6 g/dL (13.0-16.5); Immature Granulocytes Count 0.050 X10^3/uL (0.0-0.0); Mean Corp Hgb Conc 32.8 g/dL (32-36); Mean Corpuscular Volume 85.6 fL (80-94); Mean Platelet Vol. 12.0 fl (6.2-12.0); NRBC Flagged by Analyzer 0 % (0-5); POSITIVE COUNT YES; RBC Distribution Width CV 13.0 % (11.6-14.6); RBC Distribution Width SD 39.8 fl (35.1-43.9); Red Blood Count 4.85 M/mm3 (4.6-6.2); White Blood Count 7.3 K/mm3 (4.4-11.0)
[2024-10-27 18:45] LABS: Anion Gap 12 (5-15); BUN 13 mg/dL (4-19); BUN/Creat Ratio 14.4 RATIO (10-20); Calcium,Total 9.4 mg/dL (7.6-11.0); Carbon Dioxide 24.5 mmol/L (21.0-32.0); Chloride 104 mmol/L (98-108); Estimated Creatinine Clearance 98.41 ml/min (50-250); Glucose 84 mg/dL (70-99); Potassium 3.8 mmol/L (3.3-5.1)
[2024-10-27 19:07] LABS: Platelet Count 15 K/mm3 (150-450)
--- NOTE | 2024-10-27 19:26 | EX.ED.DYSGE1 ---
HPI History of Present Illness Chief Complaint: Abn Labs Informant: patient and spouse/S.O. Narrative Narrative: 64-year-old male had some routine blood work done 3 days ago showed thrombocytopenia with a platelet count of 14. When this was discovered by the lab today he was contacted and advised to come to the ER. He is asymptomatic. states he had a minor fall and injury to his right face couple weeks ago and it really became swollen and bruised traumatically, but it resorbed and over time went away and he has been asymptomatic there in the meantime. No bleeding from anywhere else. He denies any melena recently. He denies any systemic symptoms of feeling poorly. His blood pressure is high as the notes, the patient denies having a headache or chest discomfort or dyspnea, and he admits that he missed his blood pressure medications the last couple weeks on accident but he has them again now. He has seen hematology for his low platelet counts and he does not know why they are low. [facility] Medical History Parkinsons disease Melanoma in situ of back Essential hypertension Hypertension IBAN (obstructive sleep apnea) Hyperlipidemia Atherosclerotic heart disease of [place] coronary artery without angina pectoris Home Medications ?Medication ?Instructions ?Recorded ?Last Taken ?Type losartan 100 1 tab PO DAILY #90 tabs 12/19/22 Unknown Rx mg-hydrochlorothiazide 25 mg tablet amlodipine 10 mg tablet 10 mg PO QDAY 04/09/24 Unknown History carbidopa 25 mg-levodopa 100 mg 1 tab PO TID 04/09/24 Unknown History tablet carbidopa ER 50 mg-levodopa 200 mg 1 tab PO QPM 04/09/24 Unknown History tablet,extended release dexamethasone 20 mg tablet 40 mg (2 x 20 mg) PO DAILY 3 days 10/27/24 Unknown Rx #6 tabs Allergy/AdvReac Type Severity Reaction Status Date / Time No Known Allergies Allergy Verified 10/27/24 15:01 Family History Father CAD (coronary artery disease) Myocardial infarction, Onset Age: 42 Sister Hypertension Mother Colon cancer Hypertension Surgical History History of left knee surgery History of right knee surgery Postsurgical percutaneous transluminal coronary angioplasty (PTCA) status (~08/2008) Presence of stent in coronary artery (~08/2008) Social History Smoking Status: Never smoker alcohol intake: current alcohol intake frequency: a few times a month substance use type: does not use caffeine: Yes Type: coffee Number of servings: 3 what type of physical activity do you participate in: walking frequency: 3-4 times per week duration: 30-45 minutes/day ROS ROS ED Constitutional Constitutional ED: Denies chills or fever(s) Eyes Eyes: Denies change in vision or diplopia ENT ENT ED: Denies rhinorrhea or sore throat Cardiovascular Cardiovascular: Denies chest pain or palpitations Respiratory/Chest Respiratory/Chest: Denies cough or dyspnea Gastrointestinal Gastrointestinal: Denies abdominal pain, diarrhea, melena, nausea or vomiting Genitourinary Genitourinary ED: Denies dysuria or hematuria Musculoskeletal Musculoskeletal: Denies back pain or neck pain Integumentary Denies abscess or rash Neurologic Neurologic: Reports tremor(s); Denies headache(s), paresthesias or weakness Psychiatric Psychiatric: Denies anxiety or suicidal thoughts EXAM Physical Exam Const Vital Signs: 10/27/24 14:58 10/27/24 16:17 10/27/24 16:57 Temperature 98 F Temperature Source Oral Pulse Rate 63 55 L Respiratory Rate 18 18 Respiratory Effort Normal Respiratory Pattern Normal Blood Pressure 181/83 H 184/102 H Blood Pressure Mean 115 129 Pulse Ox 99 98 Oxygen Delivery Method Room Air Room Air 10/27/24 18:00 10/27/24 20:00 Temperature Temperature Source Pulse Rate 55 L 56 L Respiratory Rate 18 15 Respiratory Effort Respiratory Pattern Blood Pressure 180/96 H 186/91 H Blood Pressure Mean 124 122 Pulse Ox 99 99 Oxygen Delivery Method Room Air Room Air Positive well nourished and well developed General Appearance ED: well developed and NAD HEENT Reports moist mucous membranes normocephalic and atraumatic Eyes PERRL and EOMs intact bilaterally Neck full ROM and supple Resp normal respiratory effort and clear to auscultation bilaterally Cardio regular rate, regular rhythm and no murmurs GI non-tender and non-distended Auscultation: normoactive bowel sounds Palpation: soft Back/Spine no CVA tenderness General Back: other FROM Extremity Extremity Narrative: Some dark discoloration both lower legs symmetrically without edema. There are some petechiae here as well. The patient states this does not appear to be new to him and states his legs always look like this. General Extremety ED: Negative for edema, pulses abnormal or tenderness General Extremity: Negative for edema or pulses abnormal Neuro oriented x3, CN's II-XII intact bilaterally and no sensory deficits noted Sensorium / Orientation: awake and alert Motor Exam: strength 5/5 throughout Psych mental status grossly normal Skin no wounds Skin Narrative: Some fine petechiae in the distal lower legs, otherwise no rashes or lesions or purpura/ecchymosis. MDM MDM MDM Narrative Medical decision making narrative: We repeated the patient's labs, his platelet count is now 15, but his hemoglobin is stable. Patient is doing well his hemodynamics are stable, he is hypertensive but asymptomatic from it. It appears he is on 3 antihypertensive medications, amlodipine, losartan, HCTZ which may explain why after missing these for several weeks that his blood pressure still high. Discussed with hematology oncology Dr. Angel. We discussed his prior response to steroids several years ago and he recommends given the patient high-dose dexamethasone, 40 mg now along with a prescription for 3 more days of 40 mg/day and following up in the office. Patient comfortable with that plan. History & Record Review Additional record(s) reviewed:: Prior labs Lab Data Attestation: I reviewed the patient's lab results. Labs: Laboratory Results - last 24 hr 10/27/24 18:09 WBC 7.3 RBC 4.85 Hgb 13.6 Hct 41.5 MCV 85.6 MCH 28.0 MCHC 32.8 RDW Std Deviation 39.8 RDW Coeff of Benita 13.0 Plt Count 15 L* MPV 12.0 Immature Gran % (Auto) 0.700 Neut % (Auto) 68.3 Lymph % (Auto) 15.4 L [place] % (Auto) 11.7 H Eos % (Auto) 2.9 Baso % (Auto) 1.0 Absolute Neuts (auto) 5.0 Absolute Lymphs (auto) 1.12 Nucleated RBC % 0 Differential Comment Plt Morphology Comment GIANT Sodium 140 Potassium 3.8 Chloride 104 Carbon Dioxide 24.5 Anion Gap 12 BUN 13 Creatinine 0.88 Estim Creat Clear Calc 98.41 Est GFR (MDRD) Non-Af 96 BUN/Creatinine Ratio 14.4 Glucose 84 Calcium 9.4 Management Discussion w/another healthcare provider: [employer] Discharge Plan Triage Chief Complaint: Abn Labs ED Provider: Kvng Echeverria Dx/Rx/DC Orders Clinical Impression: Thrombocytopenia, Accelerated hypertension Instructions: Thrombocytopenia Prescriptions: New dexamethasone 20 mg tablet 40 mg PO DAILY 3 Days Qty: 6 0RF No Action amlodipine 10 mg tablet 10 mg PO QDAY carbidopa-levodopa 25-100 mg tablet 1 tab PO TID carbidopa-levodopa 50-200 mg tablet extended release 1 tab PO QPM losartan-hydrochlorothiazide 100-25 mg tablet 1 tab PO DAILY Qty: 90 3RF Primary Care Provider: Guillermo Acosta Referrals: Eliz Cristobal MD [Med Staff - Active Staff] - As soon as possible Print Language: Setswana Disposition Disposition: Home, Self Care
[2024-10-27 20:00] VITALS: BP 186/91; PULSE 56; RESP 15; O2SAT 99
[2024-10-27 20:51] VITALS: BP 186/91; PULSE 56; RESP 15; TEMP 36.6; O2SAT 99
--- OUTSIDE RECORDS SUMMARY | 2024-10-27 22:59 | XMS RPT_ITS | CCD ---
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 Devika Arcos Primary Care Provider Dr. Devika Arcos Referring Provider [phone] Chemo Grewal Attending Provider Dr. Chemo Grewal Referring Provider Dr. Chemo Grewal Other Provider Devika Arcos Primary Care Provider [phone] Devika Arcos Primary Care Provider [phone] Devika Arcos Primary Care Provider [phone] Devika Arcos Primary Care Provider [phone] Dr. Devika Arcos Primary Care Provider Dr. Devika Arcos Referring Provider [phone] Eliz Cristobal Attending Provider Devika Arcos Primary Care Provider [phone] Dr. Devika Arcos MD Primary Care Provider NATE PAZ Attending Provider NATE PAZ Referring Provider NATE PAZ Attending Provider NATE PAZ Referring Provider JEREMIAS DEMPSEY JR Attending Unavailable JEREMIAS DEMPSEY JR Referring Unavailable JOLLIFF, DEVIKA Primary Care Unavailable JEREMIAS DEMPSEY JR Attending Unavailable JEREMIAS DEMPSEY JR Referring Unavailable JOLLIFF, DEVIKA Primary Care Unavailable OBDULIO KITCHEN Attending Unavailable SELF Referring Unavailable JOLLIFF, DEVIKA Primary Care Unavailable OOTDR SMAL Attending Unavailable Care Physician, No Primary Primary Care Unava ilable Jolliff, Devika S Referring Unavailable Roof Lester HAMMER Attending Unavailable Jolliff, Devika S Primary Care Unavailable Jolliff, Devika S Attending Unavailable Jolliff, Devika S Primary Care Unavailable Jolliff, Devika S Referring Unavailable Jolliff, Devika S Attending Unavailable Jolliff, Devika S Primary Care Unavailable Jolliff, Devika S Referring Unavailable OOTDR SMAL Referring Unavailable OOTDR SMAL Attending Unavailable Jolliff, Devika S Primary Care Unavailable OOTDR SMAL Referring Unavailable OOTDR SMAL Attending Unavailable Jolliff, Devika S Primary Care Unavailable CRISTI PAZ Attending Provider [phone] Care Physician, No Primary Primary Care Provider Unavailable Jacki WELSH, Dr. Calderon Emergency Provider Dr. Guillermo Acosta MD Primary Care Provider Medications Current Medications Medication Drug Class(es) Dates Sig (Normalized) Sig (Original) amLODIPine 10 mg oral tablet (16 sources) Dihydropyridine Calcium Channel Ijeoma Start: 06-21-2022 take 1 tablet by mouth once daily Amlodipine 10 mg tablet Active 10 mg PO daily April 09, 2024 1:00am Comment on above: Take 10 mg by mouth daily at bedtime. Carbidopa / Levodopa (20 sources) Aromatic Amino Acid Decarboxylation Inhibitor, Aromatic Amino Acid Start: 04-09-2024 Carbidopa-Levodo pa 25-100 mg tablet Active 1 {tbl} PO THREE TIMES A DAY April 09, 2024 1:00am Start: 04-09-2024 Carbidopa-Levo dopa 50-200 mg tablet extended release Active 1 {tbl} PO EVERY EVENING April 09, 2024 1:00am Start: 02-18-2024 carbidopa-levo dopa (SINEMET) 25-100 mg per tablet Indications: Parkinson's disease, unspecified whether dyskinesia present, unspecified whether manifestations fluctuate (HCC) Take 1 tablet at 5AM, 1 tablet at 10AM and 1 tablet at 3PM. 90 tablet 2 02/18/2024 Active Start: 02-18-2024 End: 10-17-2024 carbidopa-levodopa CR (SIMON ET CR) 50-200 mg per tablet Indications: Parkinson's disease, unspecified whether dyskinesia present, unspecified whether manifestations fluctuate (HCC) TAKE 1 TABLET AT 8PM NIGHTLY. 90 tablet 1 10/17/2024 Active cholecalciferol, vitamin D3, (VITAMIN D3 ORAL) (12 sources) cholecalciferol, vitamin D3, (VITAMIN D3 ORAL) Take by mouth. Active cholecalciferol, vitamin D3, (VITAMIN D3 ORAL) Take by mouth. 0 Active Comment on above: Take by mouth. cyanocobalamin, vitamin B-12 , (VITAMIN B-12 ORAL) (12 sources) cyanocobalamin, vitamin B-12, (VITAMIN B-12 ORAL) Take by mouth. Active cyanocobalamin, vitamin B-12, (VITAMIN B-12 ORAL) Take by mouth. 0 Active Comment on above: Take by mouth. dexamethasone 20 mg oral tablet (7 sources) Corticosteroid Start: take 2 tablets by mouth once daily Dexamethasone 20 mg tablet Active 40 mg PO DAILY 6 3 0 October 27, 2024 12:00am Start: 05-24-2022 End: 04-09-2024 Dexamethasone 4 mg tablet Di scontinued 40 mg PO DAILY 40 4 0 June 05, 2022 10:57am April 09, 2024 4:45pm Thrombocytopenia Thrombocytopenia, unspecified Start: 05-24-2022 End: 06-05-2022 take 40 mg by mouth once daily Dexamethasone Active 40 MG PO DAILY 40 4 June 05, 2022 10:57am gabapentin 300 mg oral capsule (3 sources) Anti-epileptic Agent Start: 08-08-2024 End: 11-08-2024 gabapentin (NEURONTIN) 300 mg capsule Indications: Parkinson's disease, unspecified whether dyskinesia present, unspecified whether manifestations fluctuate (HCC) , RLS (restless legs syndrome) Take 1 cap 1 hour before bedtime. If still having tremor or RLS, can increase to 2 capsules 1 hour before bedtime. 60 capsule 2 08/08/2024 11/08/2024 Active Completed/Discontinued Medications Medication Drug Class(es) Dates Sig (Normalized) Sig (Original) [id number] actuat albuterol 0.09 mg/actuat metered dose inhaler (7 sources) beta2-Adrenergic Agonist Start: 03-15-2022 End: 11-10-2022 take 2 puff(s) by inhalation every four hours as needed albuterol HFA (PROVENTIL HFA, VENTOLIN HFA) 90 mcg/actuation inhaler Indications: Viral URI with cough Inhale 2 Puffs as instructed every 4 hours as needed. Pt aware insurance requires prior auth- will pay cruz with [employer] coupon. 1 Each 0 03/15/2022 11/10/2022 Discontinued Comment on above: Inhale 2 Puffs as in structed every 4 hours as needed. Pt aware insurance requires prior auth- will pay cruz with [email or web address] coupon. aspirin 81 mg delayed release oral tablet (20 sources) Platelet Aggregation Inhibitor, Nonsteroidal Anti-inflammatory Drug Start: 09-04-2017 End: 04-09-2024 take 1 tablet by mouth once daily Aspirin 81 mg tablet,delayed release (DR/EC) Discontinued 81 mg PO DAILY September 04, 2017 12:00am April 09, 2024 4:44pm [employer] Start: 09-06-2016 End: 11-10-2022 aspirin, enteric coated (ASP IRIN, ENTERIC COATED) 81 mg EC tablet every 24 hours. 0 09/06/2016 11/10/2022 Discontinued Start: 09-06-2016 take 1 tablet by maninder th once daily ASPIRIN 325 MG TABS One tablet by mouth daily ASPIRIN [id number] Alexus Downey RN Start: 09-06-2016 take 1 tablet by maninder th once daily ASPIRIN EC 81 MG TBEC One tablet by mouth daily ASPIRIN [id number] Chemo Grewal MD Comment on above: q 24 HR. every 24 hours. benzonatate 100 mg oral capsule (11 sources) Non-narcotic Antitussive Start: 2 End: 3 take 1-2 capsules by mouth three times daily as needed benzonatate (TESSALON PERLES) 100 mg capsule Indications: Viral URI with cough Take 1-2 capsules by mouth three times daily as needed. 30 capsule 0 03/15/2022 11/10/2022 Discontinued Start: 10-31-2020 End: 09-15-2021 take 1 capsule by mouth every eight hours as needed for cough and cough benzonatate (TESSALON PERLES) 100 mg capsule Indications: Cough Take 1 capsule by mouth every 8 hours as needed for cough. 30 capsule 0 10/31/2020 09/15/2021 Discontinued (Course of therapy completed) Comment on above: Take 1 capsule by mo ut every 8 hours as needed for cough. Take 1-2 capsules by mouth three times daily as needed. carvedilol 12.5 mg oral tablet (20 sources) alpha-Adrenergic Ijeoma, beta-Adrenergic Ijeoma Start: 09-08-2021 End: 11-10-2022 take 1 tablet by mouth once daily carvedilol (COREG) 12.5 mg tablet Take 12.5 mg by mouth once daily. 0 09/08/2021 11/10/2022 Discontinued Start: 09-08-2021 End: 04-09-2024 take 2 tablets by mouth twice daily Carvedilol 12.5 mg tablet Discontinued 25 mg PO TWICE A DAY 180 3 September 08, 2021 11:18am April 09, 2024 4:44pm heart Start: 09-08-2021 take 25 mg by mouth twice wily y Carvedilol Active 25 MG PO TWICE A DAY 180 September 08, 2021 11:18am Start: 09-04-2017 End: 12-29-2021 take 1 tablet by mouth twice daily Carvedilol 25 mg tablet Discontinued 25 mg PO TWICE A DAY 180 4 September 08, 2021 10:38am September 08, 2021 11:20am heart Start: 09-06-2016 take 1 tablet by maninder th twice daily COREG 25 MG TABS One tablet by mouth twice daily CARVEDILOL [id number] Alexus Downey RN Comment on above: Take 25 mg by mouth twice daily. Take 12.5 mg by mout h once daily. clopidogrel 75 mg oral tablet (9 sources) P2Y12 Platelet Inhibitor Start: 9 End: 9 take 1 tablet by mouth once daily Clopidogrel 75 MG tablet Discontinued 75 mg PO DAILY June 28, 2018 12:00am June 30, 2018 10:41am blood thinner Start: 09-06-2016 take 1 tablet by maninder th once daily CLOPIDOGREL BISULFATE 75 MG TABS One tablet by mouth daily CLOPIDOGREL BISULFATE [id number] Alexus Downey RN fluticasone propionate 0.05 mg/actuat metered dose nasal spray (4 sources) Corticosteroid Start: 10-31-2020 End: 09-15-2021 take 1 spray(s) nasal route once daily fluticasone (FLONASE ALLERGY RELIEF) 50 mcg/actuation nasal spray Indications: Viral illness Use 1 Kermit in each nostril once daily. 1 Bottle 0 10/31/2020 09/15/2021 Discontinued (Course of therapy completed) Comment on above: Use 1 Kermit in each nostril once daily. hydroCHLOROthiazide 25 mg / losartan potassium 100 mg oral tablet (20 sources) Thiazide Diuretic, Angiotensin 2 Receptor Ijeoma Start: 06-28-2018 End: 09-15-2021 losartan-hydrochloroth iazide (HYZAAR) 100-25 mg per tablet hydroCHLOROthiazide / Losartan Losartan/Hydrochloroth iazide [Losartan-Hctz 100-25 Mg Tab] 1 TAB PO DAILY June 28, 2018 Active 06-28-2018 [facility] ([id number]) 0 06/28/2018 09/15/2021 Discontinued (Course of therapy completed) Start: 06-28-2018 End: 12-19-2022 Losartan-Hydrochlorothiazide 100-25 mg tablet Discontinued 1 {tbl} PO DAILY 90 September 08, 2021 12:00am December 19, 2022 1:09pm Start: 06-28-2018 End: 09-08-2021 take 1 tablet by mouth once daily Losartan-Hydrochlorothiazide Active 1 TA BLET PO DAILY September 08, 2021 12:00am Comment on above: hydroCHLOROthiazide / Losartan Losartan/Hydrochlorothiazide [Losartan-Hctz 100-25 Mg Tab] 1 TAB PO DAILY June 28, 2018 Active 06-28-2018 [facility] ([id number]) Take 1 tablet by maninder th once daily. 1 ml ketorolac tromethamine 30 mg/ml injection (1 source) Nonsteroidal Anti-inflammatory Drug, Cyclooxygenase Inhibitor Start: 09-16-19 End: 09-16-19 keTORolac 30 mg injection (TORADOL) Start: 09-15-2021 End: 09-15-2021 keTORolac 30 mg injection (T ORADOL) losartan potassium 100 mg oral tablet (2 sources) Angiotensin 2 Receptor Ijeoma Start: 09-07-2016 take 1 tablet by mouth once daily LOSARTAN POTASSIUM 100 MG TABS One tablet by mouth daily LOSARTAN POTASSIUM [id number] Chemo Grewal MD Drug Treatment Unknown - unknown (1 source) No information available. 24 hr rOPINIRole 2 mg extended release oral tablet (20 sources) Nonergot Dopamine Agonist Start: 07-10-2022 End: 11-10-2022 rOPINIRole ER (REQUIP XL) 2 mg tablet Indications: Parkinson disease (HCC) Take 2 pills once a day for a week, then 1 pill once a day for a week, then stop 21 tablet 0 07/10/2022 11/10/2022 Discontinued Start: 03-07-2022 End: 04-09-2024 take 1 tablet by mouth once daily Ropinirole 6 mg tablet extended release 24 hr Discontinued 6 mg PO DAILY March 07, 2022 1:00am April 09, 2024 4:45pm Start: 12-29-2021 End: 04-12-2022 take 1 tablet by mouth once daily at bedtime rOPINIRole ER (REQUIP XL) 2 mg tablet Indications: Tremor Take 1 tablet by mouth daily at bedtime. 30 tablet 2 12/29/2021 04/12/2022 Discontinued Start: 09-08-2021 End: 04-12-2022 take 1 tablet by mouth once daily at bedtime rOPINIRole ER 4 mg 24 hr tablet TAKE 1 TABLET BY MOUTH EVERYDAY AT BEDTIME 30 tablet 2 11/21/2021 04/12/2022 Discontinued Start: 07-08-2021 End: 10-06-2021 take 1 tablet by mouth once daily at bedtime rOPINIRole 2 mg 24 hr tablet Indications: Parkinson disease (HCC) Take 1 tablet by mouth daily at bedtime. 30 tablet 2 07/08/2021 09/08/2021 Discontinued Comment on above: Take 1 tablet by maninder th daily at bedtime. TAKE 1 TABLET BY MANINDER TH EVERYDAY AT BEDTIME Take 1 tablet by maninder th once daily. TAKE 1 TABLET BY MANINDER TH EVERY DAY Take 2 pills once a day for a week, then 1 pill once a day for a week, then stop selegiline hydrochloride 5 mg oral capsule (4 sources) Monoamine Oxidase Inhibitor, Monoamine Oxidase Type B Inhibitor Start: 3 End: 4 take 1 capsule by mouth twice daily before mealtime selegiline (ELDEPRYL) 5 mg capsule Indications: Parkinson disease (HCC) Take 1 capsule by mouth twice daily before meals. 60 capsule 5 10/05/2022 02/18/2024 Discontinued Comment on above: Take 1 capsule by mo uth twice daily before meals. Problems Active Problems Problem Classification Problem Date Documented Date Episodic/Chronic Acute cerebrovascular disease (20 sources) Cerebrovascular accident; Translations: [Cerebral infarction, unspecified] Onset: 09-15-2021 09-15-2021 Chronic Acute myocardial infarction (7 sources) ST elevation (STEMI) myocardial infarction of unspecified site; Translations: [ST elevation (STEMI) myocardial infarction of unspecified site] Resolved: 09-06-2016 09-06-2016 Chronic Coagulation and hemorrhagic disorders (20 sources) Platelet count below reference range; Translations: [Thrombocytopenia, unspecified] Onset: 09-15-2021 09-15-2021 Chronic Coronary atherosclerosis and other heart disease (20 sources) Atherosclerotic heart disease of [place] coronary artery without angina pectoris; Translations: [Coronary atherosclerosis] Onset: 09-06-2016 09-06-2016 Chronic Comment on above: PTCA/BMS to distal R CA 08/2008 @ [facility] Disorders of lipid metabolism (20 sources) Hyperlipidemia; Translations: [Hyperlipidemia, unspecified] Onset: 09-15-2021 09-05-2016 Chronic Essential hypertension (20 sources) Hypertensive disorder; Translations: [Essential hypertension] Onset: 09-15-2021 09-07-2016 Chronic Headache; including migraine (5 sources) Acute headache; Translations: [Acute nonintractable headache, unspecified headache type] Episodic Headache; including migraine (1 source) Headache; including migraine; Translations: [Nonintractable episodic headache, unspecified headache type] Onset: 08-08-2024 Malaise and fatigue (4 sources) Fatigue; Translations: [Other fatigue] Onset: 10-24-2024 Episodic Nausea and vomiting (1 source) Nausea; Translations: [Nausea] Episodic Nonspecific chest pain (7 sources) Chest pain; Translations: [Chest pain, unspecified] Episodic Nutritional deficiencies (1 source) Vitamin D deficiency, unspecified; Translations: [Vitamin D deficiency, unspecified] Onset: 10-24-2024 Chronic Other ear and sense organ disorders (1 source) Bilateral tinnitus; Translations: [Tinnitus, bilateral] Episodic Other ear and sense organ disorders (2 sources) Tinnitus; Translations: [Tinnitus, unspecified ear] Episodic Other endocrine disorders (2 sources) Testicular hypofunction; Translations: [Testicular hypofunction] Onset: 10-13-2024 Chronic Other hereditary and degenerative nervous system conditions (1 source) Restless legs; Translations: [Restless legs syndrome] 08-08-2024 Chronic Other hereditary and degenerative nervous system conditions (1 source) Restless legs syndrome; Translations: [RLS (restless legs syndrome)] Onset: 08-08-2024 Chronic Other lower respiratory disease (1 source) Dyspnea; Translations: [Shortness of breath] 08-08-2024 Episodic Other lower respiratory disease (1 source) Shortness of breath; Translations: [Shortness of breath] Onset: 08-08-2024 Episodic Other nervous system disorders (3 sources) Tremor; Translations: [Tremor, unspecified] Episodic Other nutritional; endocrine; and metabolic disorders (2 sources) Body mass index (BMI) 31.0-31.9, adult; Translations: [Body mass index (BMI) 31.0-31.9, adult] Onset: 09-07-2016 09-07-2016 Chronic Other skin disorders (1 source) Excessive sweating; Translations: [Generalized hyperhidrosis] 08-08-2024 Episodic Other skin disorders (1 source) Generalized hyperhidrosis; Translations: [Diaphoresis] Onset: 08-08-2024 Episodic Parkinson`s disease (20 sources) Parkinson's disease; Translations: [Parkinson's disease] Onset: 09-15-2021 Chronic Parkinson`s disease (2 sources) Parkinson`s disease; Translations: [Parkinson's disease, unspecified whether dyskinesia present, unspecified whether manifestations fluctuate (HCC)] Onset: 09-15-2021 Residual codes; unclassified (20 sources) Obstructive sleep apnea syndrome; Translations: [Obstructive sleep apnea (adult) (pediatric)] Onset: 05-10-2022 Chronic Residual codes; unclassified (3 sources) Obstructive sleep apnea (adult) (pediatric); Translations: [Obstructive sleep apnea (adult)(pediatric)] Onset: 05-10-2022 Chronic Residual codes; unclassified (1 source) Intolerant of ambient temperature; Translations: [Other general symptoms and signs] 08-08-2024 Episodic Residual codes; unclassified (1 source) Other general symptoms and signs; Translations: [Temperature intolerance] Onset: 08-08-2024 Episodic Unclassified (1 source) Placement of stent in coronary artery ; Translations: [Presence of coronary angioplasty implant and graft] Onset: 09-06-2016 09-06-2016 Unclassified (1 source) Frequent headaches; Translations: [Frequent headaches] Onset: 02-18-2024 Viral infection (1 source) Viral disease; Translations: [Viral infection, unspecified] Episodic Past or Other Problems Problem Classification Problem Date Documented Da te Episodic/Chronic Coronary atherosclerosis and other heart disease (3 sources) History of myocardial infarction; Translations: [Old myocardial infarction] Onset: 09-06-2016 09-06-2016 Episodic Coronary atherosclerosis and other heart disease (8 sources) Stented coronary artery; Translations: [Presence of coronary angioplasty implant and graft] Onset: 03-26-2008 Episodic Comment on above: PTCA/BMS to distal R CA 08/2008 @ [facility] Other connective tissue disease (1 source) Bicipital tendinitis, right shoulder; Translations: [Bicipital tendinitis, right shoulder] Onset: 05-28-2024 Episodic Other ear and sense organ disorders (1 source) Tinnitus, unspecified ear; Translations: [Tinnitus, unspecified laterality] Onset: 02-18-2024 Episodic Results Test Name Value Interpretation Reference Range Facility Absolute lymphocyte countOrd ered By: Kvng Echeverria on 10-27-2024 Lymphocytes Auto (Unsp spec) [#/Vol] 1.12 10*3/uL 0.83-4.51 [facility] Absolute neutrophil countOrd ered By: Kvng Echeverria on 10-27-2024 Neutrophils (Bld) [#/Vol] 5.0 10*3/uL 2.0-7.7 [facility] Anion gap in Serum or Plasma Ordered By: Kvng Echeverria on 10-27-2024 Anion gap [Moles/Vol] 12 mmol/L 5-15 [facility] Automated lymphocyte count a s percentage of total leukocytesOrdered By: Kvng Echeverria on 10-27-2024 Lymphocytes/100 WBC Auto (Unsp spec) 15.4 % Low 19-41 [facility] BUN/creatinine ratioOrdered By: Kvng Echeverria on 10-27-2024 Urea nitrogen/Creatinine [Mass ratio] 14.4 mg/mg 10-20 [facility] Basophil percentageOrdered B y: Kvng Echeverria on 10-27-2024 Basophils/100 WBC (Bld) 1.0 % 0-1 [facility] Blood manual differential co mment interpretation (narrative result)Ordered By: Kvng Echeverria on 10-27-2024 Manual differential comment Lopez (Bld) [Interp] See comment [facility] Comment on above: LARGE AND GIANT PLAT ELETS SEEN Carbon dioxide, total [Moles /volume] in Central venous bloodOrdered By: Kvng Echeverria on 10-27-2024 CO2 [Moles/Vol] 24.5 mmol/L 21.0-32.0 [facility] Chloride assayOrdered By: Tyra Echeverria on 10-27-2024 Chloride [Moles/Vol] 104 mmol/L 98-108 [facility] Eosinophil percentageOrdered By: vKng Echeverria on 10-27-2024 Eosinophils/100 WBC (Bld) 2.9 % 0-5 [facility] Erythrocyte distribution wid th ratioOrdered By: Kvng Echeverria on 10-27-2024 Erythrocyte distribution width (RBC) [Ratio] 13.0 % 11.6-14.6 [facility] Erythrocyte distribution wid th standard deviationOrdered By: Kvng Echeverria on 10-27-2024 Erythrocyte distribution width (RBC) [Ratio] 39.8 fl 35.1-43.9 [facility] Glomerular filtration rate ( GFR) estimation/1.73 sq m using serum, plasma, or whole bOrdered By: Kvng Echeverria on 10-27-2024 GFR/1.73 sq M.predicted among non-blacks MDRD (S/P/Bld) [Vol rate/Area] 96 mL/min/{1.73_m2} >60 [facility] Comment on above: mL/min/1.73m2 CKD-EP I Creatinine Equation (2020) Hematocrit Auto (Bld) [Volum e fraction]Ordered By: Kvng Echeverria on 10-27-2024 Hematocrit (Bld) [Volume fraction] 41.5 % 40-54 [facility] Hemoglobin measurementOrdere d By: Kvng Echeverria on 10-27-2024 Hemoglobin (Bld) [Mass/Vol] 13.6 g/dL 13.0-16.5 [facility] Immature granulocytes/100 WB C Auto (Bld)Ordered By: Kvng Echeverria on 10-27-2024 Immature granulocytes/100 WBC (Bld) 0.700 % 0.0-0.9 [facility] Comment on above: IG% - Immature Granu locytes (promyelocytes, myelocytes and metamyelocytes) > 1% indicates that a LEFT SHIFT is Present. MCV (mean corpuscular volume ) determinationOrdered By: Kvng Echeverria on 10-27-2024 MCV (RBC) [Entitic vol] 85.6 fL 80-94 [facility] Mean corpuscular hemoglobin (MCH) determinationOrdered By: Kvng Echeverria on 10-27-2024 MCH (RBC) [Entitic mass] 28.0 pg 27.0-32.0 [facility] Mean corpuscular hemoglobin concentration (MCHC) determinationOrdered By: Kvng Echeverria on 10-27-2024 MCHC (RBC) [Mass/Vol] 32.8 g/dL 32-36 [facility] Mean platelet volume determi nationOrdered By: Kvng Echeverria on 10-27-2024 Platelet mean volume (Bld) [Entitic vol] 12.0 fL 6.2-12.0 [facility] Monocyte percentageOrdered B y: Kvng Echeverria on 10-27-2024 Monocytes/100 WBC (Bld) 11.7 % High 0-10 [facility] Neutrophil percentageOrdered By: Kvng Echeverria on 10-27-2024 Neutrophils/100 WBC (Bld) 68.3 % 47-70 [facility] Nucleated red blood cell per centageOrdered By: Kvng Echeverria on 10-27-2024 Nucleated RBC/100 WBC (Bld) [Ratio] 0 % 0-5 [facility] Platelet countOrdered By: Tyra Echeverria on 10-27-2024 Platelets (Bld) [#/Vol] 15 10*3/uL Low 150-450 [facility] Comment on above: CRITICAL VALUE FISHER D TO [CECILY MERRILL]10/27/24 1906 Jolly Doe.RESULTS READ BACK BY [SAME]. Platelet morphologyOrdered B y: Kvng Echeverria on 10-27-2024 Platelet morphology finding Nom (Bld) GIANT [facility] Potassium measurement (mass/ volume)Ordered By: Kvng Echeverria on 10-27-2024 Potassium (Unsp spec) [Mass/Vol] 3.8 mmol/L 3.3-5.1 [facility] RBC Auto (Bld) [#/Vol]Ordere d By: Kvng Echeverria on 10-27-2024 RBC (Bld) [#/Vol] 4.85 10*6/uL 4.6-6.2 [facility] Serum creatinine measurement (mass/volume)Ordered By: Kvng Echeverria on 10-27-2024 Creatinine [Mass/Vol] 0.88 mg/dL 0.70-1.20 [facility] Serum glucose measurement (m ass/volume)Ordered By: Kvng Echeverria on 10-27-2024 Glucose [Mass/Vol] 84 mg/dL 70-99 [facility] Serum or plasma calcium donovan urement (mass/volume)Ordered By: Kvng Echeverria on 10-27-2024 Calcium [Mass/Vol] 9.4 mg/dL 7.6-11.0 [facility] Serum or plasma urea nitroge n measurement (mass/volume)Ordered By: Kvng Echeverria on 10-27-2024 Urea nitrogen [Mass/Vol] 13 mg/dL 4-19 [facility] Sodium levelOrdered By: Lizandro Echeverria on 10-27-2024 Sodium [Moles/Vol] 140 mmol/L 133-145 [facility] White blood cell (WBC) count Ordered By: Kvng Echeverria on 10-27-2024 WBC (Bld) [#/Vol] 7.3 10*3/uL 4.4-11.0 [facility] Anion gap in Serum or Plasma on 10-24-2024 Anion gap [Moles/Vol] 11 mmol/L 5-15 [facility] BUN/creatinine ratioon 10-24 Urea nitrogen/Creatinine [Mass ratio] 14.1 mg/mg 10-20 [facility] Bilirubin, totalon Bilirubin [Mass/Vol] 0.54 mg/dL 0.00-1.30 [facility] Blood manual differential co mment interpretation (narrative result)on 10-24-2024 Manual differential comment Lopez (Bld) [Interp] SCANNED [facility] Comment on above: MARKED THROMBOCYTOPE KENDY CBC-Complete Blood Cnt No Di ffon 10-24-2024 PATH REV May foll Normal [facility] Comment on above: Order Comment: CRITI PERLA VALUE CALLED TO DASHAWN 10/24/24 1047 Lizbeth Ballard. RESULTS READ BACK BY SAME. Performed By: #### L 100.0500, L500.4050, L100.4500, L503.6030, L503.6550, L501.9520 #### [facility] [address] [place], [address] Carbon dioxide, total [Moles /volume] in Central venous bloodon 10-24-2024 CO2 [Moles/Vol] 25.9 mmol/L 21.0-32.0 [facility] Chloride assayon 10-24-2024 Chloride [Moles/Vol] 102 mmol/L 98-108 [facility] Comprehensive Metabolic Prof ilon 10-24-2024 Albumin [Mass/Vol] 4.4 g/dL Normal 3.4-4.8 [facility] Comment on above: Performed By: #### L 100.0500, L500.4050, L100.4500, L503.6030, L503.6550, L501.9520 #### [facility] [address] [place], [address] Albumin/Globulin [Mass ratio] 1.4 {ratio} Normal 0.9-2.4 [facility] Comment on above: Performed By: #### L 100.0500, L500.4050, L100.4500, L503.6030, L503.6550, L501.9520 #### [facility] [address] [place], [address] ALK PHOS 156 U/L High 40-129 [facility] Comment on above: Performed By: #### L 100.0500, L500.4050, L100.4500, L503.6030, L503.6550, L501.9520 #### [facility] [address] [place], [address] ALT [Catalytic activity/Vol] 51 U/L High <=46 [facility] Comment on above: Performed By: #### L 100.0500, L500.4050, L100.4500, L503.6030, L503.6550, L501.9520 #### [facility] [address] [place], [address] AST [Catalytic activity/Vol] 31 U/L Normal <=37 [facility] Comment on above: Performed By: #### L 100.0500, L500.4050, L100.4500, L503.6030, L503.6550, L501.9520 #### [facility] [address] [place], [address] Bilirubin [Mass/Vol] 0.54 mg/dL Normal 0.00-1.30 [facility] Comment on above: Performed By: #### L 100.0500, L500.4050, L100.4500, L503.6030, L503.6550, L501.9520 #### [facility] [address] [place], [address] BUN/CRE 14.1 RATIO Normal 10-20 [facility] Comment on above: Performed By: #### L 100.0500, L500.4050, L100.4500, L503.6030, L503.6550, L501.9520 #### [facility] [address] [place], [address] Calcium [Mass/Vol] 9.3 mg/dL Normal 7.6-11.0 [facility] Comment on above: Performed By: #### L 100.0500, L500.4050, L100.4500, L503.6030, L503.6550, L501.9520 #### [facility] [address] [place], [address] Chloride [Moles/Vol] 102 mmol/L Normal 98-108 [facility] Comment on above: Performed By: #### L 100.0500, L500.4050, L100.4500, L503.6030, L503.6550, L501.9520 #### [facility] [address] [place], [address] CO2 [Moles/Vol] 25.9 mmol/L Normal 21.0-32.0 [facility] Comment on above: Performed By: #### L 100.0500, L500.4050, L100.4500, L503.6030, L503.6550, L501.9520 #### [facility] [address] [place], [address] Creatinine [Mass/Vol] 0.89 mg/dL Normal 0.70-1.20 [facility] Comment on above: Performed By: #### L 100.0500, L500.4050, L100.4500, L503.6030, L503.6550, L501.9520 #### [facility] [address] [place], [address] GAP 11 Normal 5-15 [facility] Comment on above: Performed By: #### L 100.0500, L500.4050, L100.4500, L503.6030, L503.6550, L501.9520 #### [facility] [address] [place], [address] GFR/1.73 sq M.predicted among non-blacks MDRD (S/P/Bld) [Vol rate/Area] 96 mL/min/{1.73_m2} Normal >60 [facility] Comment on above: Result Comment: mL/m in/1.73m2 CKD-EPI Creatinine Equation (2020) Performed By: #### L 100.0500, L500.4050, L100.4500, L503.6030, L503.6550, L501.9520 #### [facility] [address] [place], [address] Globulin (S) [Mass/Vol] 3.1 g/dL Normal 2.2-4.2 [facility] Comment on above: Performed By: #### L 100.0500, L500.4050, L100.4500, L503.6030, L503.6550, L501.9520 #### [facility] [address] [place], [address] Glucose [Mass/Vol] 96 mg/dL Normal 70-99 [facility] Comment on above: Performed By: #### L 100.0500, L500.4050, L100.4500, L503.6030, L503.6550, L501.9520 #### [facility] [address] [place], [address] Potassium [Moles/Vol] 4.4 mmol/L Normal 3.3-5.1 [facility] Comment on above: Performed By: #### L 100.0500, L500.4050, L100.4500, L503.6030, L503.6550, L501.9520 #### [facility] [address] [place], [address] Sodium [Moles/Vol] 139 mmol/L Normal 133-145 [facility] Comment on above: Performed By: #### L 100.0500, L500.4050, L100.4500, L503.6030, L503.6550, L501.9520 #### [facility] [address] [place], [address] T PROT 7.4 g/dL Normal 5.9-8.4 [facility] Comment on above: Performed By: #### L 100.0500, L500.4050, L100.4500, L503.6030, L503.6550, L501.9520 #### [facility] [address] [place], [address] Urea nitrogen [Mass/Vol] 13 mg/dL Normal 4-19 [facility] Comment on above: Performed By: #### L 100.0500, L500.4050, L100.4500, L503.6030, L503.6550, L501.9520 #### [facility] [address] [place], [address] Differential Commenton 10-24 SMEAR COMMENT SCANNED Normal [facility] Comment on above: Order Comment: CRITI PERLA VALUE CALLED TO [id number]/01/25 Sarina Ballard.RESULTS READ BACK BY SAME. Result Comment: PRAMOD ED THROMBOCYTOPENIA Performed By: #### L 100.0500, L500.4050, L100.4500, L503.6030, L503.6550, L501.9520 ####[facility] [address] [place], [address] Erythrocyte distribution wid th ratioon 10-24-2024 Erythrocyte distribution width (RBC) [Ratio] 13.1 % 11.6-14.6 [facility] Erythrocyte distribution wid th standard deviationon 10-24-2024 Erythrocyte distribution width (RBC) [Ratio] 40.7 fl 35.1-43.9 [facility] Ferritinon 10-24-2024 Ferritin [Mass/Vol] 323 ng/mL Normal 37-417 [facility] Comment on above: Performed By: #### L 100.0500, L500.4050, L100.4500, L503.6030, L503.6550, L501.9520 #### [facility] [address] [place], [address] Glomerular filtration rate ( GFR) estimation/1.73 sq m using serum, plasma, or whole bon 10-24-2024 GFR/1.73 sq M.predicted among non-blacks MDRD (S/P/Bld) [Vol rate/Area] 96 mL/min/{1.73_m2} >60 [facility] Comment on above: mL/min/1.73m2 CKD-EP I Creatinine Equation (2020) Hematocrit Auto (Bld) [Volum e fraction]on 10-24-2024 Hematocrit (Bld) [Volume fraction] 41.4 % 40-54 [facility] Hemoglobin measurementon Hemoglobin (Bld) [Mass/Vol] 13.9 g/dL 13.0-16.5 [facility] Iron measurement (mass/mass) on 10-24-2024 Iron (Unsp spec) [Mass/Mass] 63 ug/dL Low 65-175 [facility] Iron+Iron Binding Capacityon 10-24-2024 Iron [Mass/Vol] 63 ug/dL Low 65-175 [facility] Comment on above: Performed By: #### L 100.0500, L500.4050, L100.4500, L503.6030, L503.6550, L501.9520 #### [facility] [address] [place], [address] IRON SATURATION 21.0 Normal 9-55 [facility] Comment on above: Performed By: #### L 100.0500, L500.4050, L100.4500, L503.6030, L503.6550, L501.9520 #### [facility] [address] [place], [address] TIBC 305 ug/dL Normal 250-450 [facility] Comment on above: Performed By: #### L 100.0500, L500.4050, L100.4500, L503.6030, L503.6550, L501.9520 #### [facility] [address] [place], [address] UIBC 242 ug/dL Normal 228-428 [facility] Comment on above: Performed By: #### L 100.0500, L500.4050, L100.4500, L503.6030, L503.6550, L501.9520 #### [facility] [address] [facility] [place], [address] Laboratory - Chemistry and C hemistry - challengeon 10-24-2024 AST [Catalytic activity/Vol] 31 U/L <38 [facility] MCV (mean corpuscular volume ) determinationon 10-24-2024 MCV (RBC) [Entitic vol] 85.0 fL 80-94 [facility] Mean corpuscular hemoglobin (MCH) determinationon 10-24-2024 MCH (RBC) [Entitic mass] 28.5 pg 27.0-32.0 [facility] Mean corpuscular hemoglobin concentration (MCHC) determinationon 10-24-2024 MCHC (RBC) [Mass/Vol] 33.6 g/dL 32-36 [facility] Mean platelet volume determi nationon 10-24-2024 Platelet mean volume (Bld) [Entitic vol] 11.3 fL 6.2-12.0 [facility] No Panel Informationon 10-24 Unsaturated Iron Binding Capacity 242 ug/dL 228-428 [facility] Platelet counton 10-24-2024 Platelets (Bld) [#/Vol] 14 10*3/uL Low 150-450 [facility] Potassium measurement (mass/ volume)on 10-24-2024 Potassium (Unsp spec) [Mass/Vol] 4.4 mmol/L 3.3-5.1 [facility] RBC Auto (Bld) [#/Vol]on RBC (Bld) [#/Vol] 4.87 10*6/uL 4.6-6.2 [facility] Review by pathologiston Pathologist review Lopez (Unsp spec) [Interp] July [facility] Serum creatinine measurement (mass/volume)on 10-24-2024 Creatinine [Mass/Vol] 0.89 mg/dL 0.70-1.20 [facility] Serum globulin measurementon 10-24-2024 Globulin (S) [Mass/Vol] 3.1 g/dL 2.2-4.2 [facility] Serum glucose measurement (m ass/volume)on 10-24-2024 Glucose [Mass/Vol] 96 mg/dL 70-99 [facility] Serum or plasma alanine anderson otransferase (ALT) measurementon 10-24-2024 ALT [Catalytic activity/Vol] 51 U/L High <47 [facility] Serum or plasma albumin donovan urement (mass/volume)on 10-24-2024 Albumin [Mass/Vol] 4.4 g/dL 3.4-4.8 [facility] Serum or plasma albumin/glob ulin mass ratioon 10-24-2024 Albumin/Globulin [Mass ratio] 1.4 {ratio} 0.9-2.4 [facility] Serum or plasma alkaline red sphatase measurementon 10-24-2024 ALP [Catalytic activity/Vol] 156 U/L High 40-129 [facility] Serum or plasma calcium donovan urement (mass/volume)on 10-24-2024 Calcium [Mass/Vol] 9.3 mg/dL 7.6-11.0 [facility] Serum or plasma ferritin cody surement (mass/volume)on 10-24-2024 Ferritin [Mass/Vol] 323 ng/mL 37-417 [facility] Serum or plasma iron saturat ion measurement (mass fraction)on 10-24-2024 Iron saturation [Mass fraction] 21.0 % 9-55 [facility] Serum or plasma urea nitroge n measurement (mass/volume)on 10-24-2024 Urea nitrogen [Mass/Vol] 13 mg/dL 4-19 [facility] Sodium levelon 10-24-2024 Sodium [Moles/Vol] 139 mmol/L 133-145 [facility] TSH DL <= 0.005 mIU/L Qnon 0 10-24-2024 TSH Qn 1.760 uIU/mL 0.300-4.200 [facility] Thyroid Stim Hormone (TSH)on 10-24-2024 TSH 1.760 uIU/mL Normal 0.300-4.200 [facility] Comment on above: Performed By: #### L 100.0500, L500.4050, L100.4500, L503.6030, L503.6550, L501.9520 #### [facility] [address] [place], [place], [address] Total proteinon 10-24-2024 Protein [Mass/Vol] 7.4 g/dL 5.9-8.4 [facility] White blood cell (WBC) count on 10-24-2024 WBC (Bld) [#/Vol] 6.7 10*3/uL 4.4-11.0 [facility] L3410.9992on 10-15-2024 [facility] Misc. COMMENT Normal . [facility] Comment on above: Order Comment: [id number] DIHYDROTESTOSTERONE Result Comment: Test Ordered: [id number] Magnesium, RBC Test(s) [id number]-[id number], RBC was developed and its performance characteristics determined by [facility]. It has not been cleared or approved by the Food and Drug Administration. Magnesium, RBC 6.9 mg/dL Reference Range: 3.7-7.0 Performed at: - [address] [id number] Auto Transmission Specialist: Margarito Sanders MD, Phone: [phone] Performed at: - [facility] [id number] Auto Transmission Specialist: Yg Perrin PhD, Phone: [phone] Performed By: #### L 3410.9992 #### [facility] [address] [place], [place], [address] L3410.9994on 10-11-2024 [facility] Misc. 2 COMMENT Normal . [facility] Comment on above: Order Comment: [id number] 2 DIHYDROTESTOSTERONE Result Comment: Test Ordered: [id number] Apolipoprotein B Apolipoprotein B 91 [H ] mg/dL Reference Range: <90 Desirable < 90 Borderline High 90 - 99 High 100 - 130 Very High >130 ASCVD RISK THERAPEUTIC TARGET CATEGORY APO B (mg/dL) Very High Risk <80 (if extreme risk <70) High Risk <90 Moderate Risk <90 Performed at: - [facility] [id number] [employer] Specialist: Margarito Sanders MD, Phone: [phone] Performed at: [facility] [id number] [employer] Specialist: Yg Perrin PhD, Phone: [phone] Performed By: #### L 3410.9992 #### [facility] [address] [facility] [place], [place], [id number] Anion gap in Serum or Plasma on 10-08-2024 Anion gap [Moles/Vol] 12 mmol/L 5-15 [facility] BUN/creatinine ratioon 10-08 Urea nitrogen/Creatinine [Mass ratio] 15.7 mg/mg 10-20 [facility] Bilirubin Test strip Ql (U)o n 10-08-2024 Bilirubin Ql (U) Negative Negative [facility] Bilirubin, totalon Bilirubin [Mass/Vol] 0.60 mg/dL 0.00-1.30 [facility] Blood manual differential co mment interpretation (narrative result)on 10-08-2024 Manual differential comment Lopez (Bld) [Interp] SCANNED [facility] Comment on above: MODERATE THROMBOCYTO PENIA NOTED CBC-Complete Blood Cnt No Di ffon 10-08-2024 Erythrocyte distribution width (RBC) [Ratio] 13.0 % Normal 11.6-14.6 [facility] Comment on above: Performed By: #### L 3410.9992 #### [facility] [address] [place], [place], [address] Hematocrit (Bld) [Volume fraction] 41.7 % Normal 40-54 [facility] Comment on above: Performed By: #### L 3410.9992 #### [facility] [address] [place], [address] Hemoglobin (Bld) [Mass/Vol] 13.9 g/dL Normal 13.0-16.5 [facility] Comment on above: Performed By: #### L 3410.9992 #### [facility] [address] [place], [address] MCH (RBC) [Entitic mass] 28.5 pg Normal 27.0-32.0 [facility] Comment on above: Performed By: #### L 3410.9992 #### [facility] [address] [place], [address] MCHC (RBC) [Mass/Vol] 33.3 g/dL Normal 32-36 [facility] Comment on above: Performed By: #### L 3410.9992 #### [facility] [address] [place], [address] MCV (RBC) [Entitic vol] 85.6 fL Normal 80-94 [facility] Comment on above: Performed By: #### L 3410.9992 #### [facility] [address] [place], [address] Platelet mean volume (Bld) [Entitic vol] 10.4 fL Normal 6.2-12.0 [facility] Comment on above: Performed By: #### L 3410.9992 #### [facility] [address] [place], [address] Platelets (Bld) [#/Vol] 93 10*3/uL Low 150-450 [facility] Comment on above: Performed By: #### L 3410.9992 #### [facility] [address] [place], [address] RBC (Bld) [#/Vol] 4.87 10*6/uL Normal 4.6-6.2 [facility] Comment on above: Performed By: #### L 3410.9992 #### [facility] [address] [place], [address] RDW SD 40.5 fl Normal 35.1-43.9 [facility] Comment on above: Performed By: #### L 341.9992 #### [facility] [address] [place], [address] WBC (Bld) [#/Vol] 7.1 10*3/uL Normal 4.4-11.0 [facility] Comment on above: Performed By: #### L 341.9992 #### [facility] [address] [place], [address] Carbon dioxide, total [Moles /volume] in Central venous bloodon 10-08-2024 CO2 [Moles/Vol] 24.0 mmol/L 21.0-32.0 [facility] Chloride assayon 10-08-2024 Chloride [Moles/Vol] 101 mmol/L 98-108 [facility] Comprehensive Metabolic Prof ilon 10-08-2024 Albumin [Mass/Vol] 4.2 g/dL Normal 3.4-4.8 [facility] Comment on above: Performed By: #### L 341.9992 #### [facility] [address] [place], [address] Albumin/Globulin [Mass ratio] 1.2 {ratio} Normal 0.9-2.4 [facility] Comment on above: Performed By: #### L 341.9992 #### [facility] [address] [place], [address] ALK PHOS 147 U/L High 40-129 [facility] Comment on above: Performed By: #### L 341.9992 #### [facility] [address] [place], [address] ALT [Catalytic activity/Vol] 50 U/L High <=46 [facility] Comment on above: Performed By: #### L 3409.9992 #### [facility] [address] [place], [address] AST [Catalytic activity/Vol] 32 U/L Normal <=37 [facility] Comment on above: Performed By: #### L 3410.9992 #### [facility] [address] [place], [address] Bilirubin [Mass/Vol] 0.60 mg/dL Normal 0.00-1.30 [facility] Comment on above: Performed By: #### L 3410.9992 #### [facility] [address] [place], [address] BUN/CRE 15.7 RATIO Normal 10-20 [facility] Comment on above: Performed By: #### L 3410.9992 #### [facility] [address] [place], [address] Calcium [Mass/Vol] 9.4 mg/dL Normal 7.6-11.0 [facility] Comment on above: Performed By: #### L 3410.9992 #### [facility] [address] [place], [address] Chloride [Moles/Vol] 101 mmol/L Normal 98-108 [facility] Comment on above: Performed By: #### L 3410.9992 #### [facility] [address] [place], [address] CO2 [Moles/Vol] 24.0 mmol/L Normal 21.0-32.0 [facility] Comment on above: Performed By: #### L 3410.9992 #### [facility] [address] [place], [address] Creatinine [Mass/Vol] 0.96 mg/dL Normal 0.70-1.20 [facility] Comment on above: Performed By: #### L 3410.9992 #### [facility] [address] [place], [address] GAP 12 Normal 5-15 [facility] Comment on above: Performed By: #### L 3410.9992 #### [facility] [address] [place], [address] GFR/1.73 sq M.predicted among non-blacks MDRD (S/P/Bld) [Vol rate/Area] 88 mL/min/{1.73_m2} Normal >60 [facility] Comment on above: Result Comment: mL/m in/1.73m2 CKD-EPI Creatinine Equation (2020) Performed By: #### L 3410.9992 #### [facility] [address] [place], [address] Globulin (S) [Mass/Vol] 3.4 g/dL Normal 2.2-4.2 [facility] Comment on above: Performed By: #### L 3410.9992 #### [facility] [address] [place], [address] Glucose [Mass/Vol] 96 mg/dL Normal 70-99 [facility] Comment on above: Performed By: #### L 3410.9992 #### [facility] [address] [place], [address] Potassium [Moles/Vol] 4.1 mmol/L Normal 3.3-5.1 [facility] Comment on above: Performed By: #### L 3410.9992 #### [facility] [address] [place], [address] Sodium [Moles/Vol] 137 mmol/L Normal 133-145 [facility] Comment on above: Performed By: #### L 3410.9992 #### [facility] [address] [place], [address] T PROT 7.6 g/dL Normal 5.9-8.4 [facility] Comment on above: Performed By: #### L 3410.9992 #### [facility] [address] [place], [place], [address] Urea nitrogen [Mass/Vol] 15 mg/dL Normal 4-19 [facility] Comment on above: Performed By: #### L 3410.9992 #### [facility] [address] [place], [place], [address] Differential Commenton 10-08 SMEAR COMMENT SCANNED Normal [facility] Comment on above: Result Comment: MODE RATE THROMBOCYTOPENIA NOTED Performed By: #### L 3410.9992 #### [facility] [address] [place], [place], [address] Erythrocyte distribution wid th ratioon 10-08-2024 Erythrocyte distribution width (RBC) [Ratio] 13.0 % 11.6-14.6 [facility] Erythrocyte distribution wid th standard deviationon 10-08-2024 Erythrocyte distribution width (RBC) [Ratio] 40.5 fl 35.1-43.9 [facility] Glomerular filtration rate ( GFR) estimation/1.73 sq m using serum, plasma, or whole bon 10-08-2024 GFR/1.73 sq M.predicted among non-blacks MDRD (S/P/Bld) [Vol rate/Area] 88 mL/min/{1.73_m2} >60 [facility] Comment on above: mL/min/1.73m2 CKD-EP I Creatinine Equation (2020) Hematocrit Auto (Bld) [Volum e fraction]on 10-08-2024 Hematocrit (Bld) [Volume fraction] 41.7 % 40-54 [facility] Hemoglobin measurementon Hemoglobin (Bld) [Mass/Vol] 13.9 g/dL 13.0-16.5 [facility] Ketones Test strip Ql (U)on 10-08-2024 Ketones Ql (U) Negative Negative [facility] L3200.2000on 10-08-2024 ADD. COMMENT Normal [facility] Comment on above: Result Comment: TEST ORDERED WRONG Performed By: #### L 3410.9992 #### [facility] [address] [place], [address] APOE GENOTYPE Normal [facility] Comment on above: Result Comment: TEST ORDERED WRONG Performed By: #### L 3410.9992 #### [facility] [address] [place], [address] BACKGROUND INFO Normal [facility] Comment on above: Result Comment: TEST ORDERED WRONG Performed By: #### L 3410.9992 #### [facility] [address] [place], [address] LIMITATIONS Normal [facility] Comment on above: Result Comment: TEST ORDERED WRONG Performed By: #### L 3410.9992 #### [facility] [address] [place], [address] METHODOLOGY Normal [facility] Comment on above: Result Comment: TEST ORDERED WRONG Performed By: #### L 3410.9992 #### [facility] [address] [place], [address] REFERENCES Normal [facility] Comment on above: Result Comment: TEST ORDERED WRONG Performed By: #### L 3410.9992 #### [facility] [address] [place], [address] RESULT RELEASE Normal [facility] Comment on above: Result Comment: TEST ORDERED WRONG Performed By: #### L 3410.9992 #### [facility] [address] [place], [address] Laboratory - Chemistry and C hemistry - challengeon 10-08-2024 AST [Catalytic activity/Vol] 32 U/L <38 [facility] MCV (mean corpuscular volume ) determinationon 10-08-2024 MCV (RBC) [Entitic vol] 85.6 fL 80-94 [facility] Mean corpuscular hemoglobin (MCH) determinationon 10-08-2024 MCH (RBC) [Entitic mass] 28.5 pg 27.0-32.0 [facility] Mean corpuscular hemoglobin concentration (MCHC) determinationon 10-08-2024 MCHC (RBC) [Mass/Vol] 33.3 g/dL 32-36 [facility] Mean platelet volume determi nationon 10-08-2024 Platelet mean volume (Bld) [Entitic vol] 10.4 fL 6.2-12.0 [facility] Microscopic analysis of urin e for red blood cells (RBC)on 10-08-2024 Microscopic analysis of urine for red blood cells (RBC) 0 SEEN /hpf 0-5 [facility] Mucus LM Ql (Urine sed)on Mucus Ql (Urine sed) 0 SEEN /hpf [facility] Nitrite Test strip Ql (U)on 10-08-2024 Nitrite Ql (U) Negative Negative [facility] Platelet counton 10-08-2024 Platelets (Bld) [#/Vol] 93 10*3/uL Low 150-450 [facility] Potassium measurement (mass/ volume)on 10-08-2024 Potassium (Unsp spec) [Mass/Vol] 4.1 mmol/L 3.3-5.1 [facility] Protein Test strip Ql (U)on 10-08-2024 Protein Ql (U) Negative Negative [facility] RBC Auto (Bld) [#/Vol]on RBC (Bld) [#/Vol] 4.87 10*6/uL 4.6-6.2 [facility] Serum creatinine measurement (mass/volume)on 10-08-2024 Creatinine [Mass/Vol] 0.96 mg/dL 0.70-1.20 [facility] Serum globulin measurementon 10-08-2024 Globulin (S) [Mass/Vol] 3.4 g/dL 2.2-4.2 [facility] Serum glucose measurement (m ass/volume)on 10-08-2024 Glucose [Mass/Vol] 96 mg/dL 70-99 [facility] Serum or plasma alanine anderson otransferase (ALT) measurementon 10-08-2024 ALT [Catalytic activity/Vol] 50 U/L High <47 [facility] Serum or plasma albumin donovan urement (mass/volume)on 10-08-2024 Albumin [Mass/Vol] 4.2 g/dL 3.4-4.8 [facility] Serum or plasma albumin/glob ulin mass ratioon 10-08-2024 Albumin/Globulin [Mass ratio] 1.2 {ratio} 0.9-2.4 [facility] Serum or plasma alkaline red sphatase measurementon 10-08-2024 ALP [Catalytic activity/Vol] 147 U/L High 40-129 [facility] Serum or plasma calcium donovan urement (mass/volume)on 10-08-2024 Calcium [Mass/Vol] 9.4 mg/dL 7.6-11.0 [facility] Serum or plasma urea nitroge n measurement (mass/volume)on 10-08-2024 Urea nitrogen [Mass/Vol] 15 mg/dL 4-19 [facility] Sodium levelon 10-08-2024 Sodium [Moles/Vol] 137 mmol/L 133-145 [facility] Squamous epithelial cells de tection in urine sediment by light microscopyon 10-08-2024 Epithelial cells.squamous LM Ql (Urine sed) 0 SEEN /hpf 0-5 [facility] Stool Occult Blood iFOBon STOB Negative Normal [facility] Comment on above: Performed By: #### L 2420.9992 #### [facility] [address] [place], [place], [address] Stool gastrointestinal hemog lobin detection by immunologic methodon 10-08-2024 Lower GI hemoglobin IA Ql (Stl) [facility] TSH DL <= 0.005 mIU/L Qnon 0 10-08-2024 TSH Qn 2.060 uIU/mL 0.300-4.200 [facility] Thyroid Stim Hormone (TSH)on 10-08-2024 TSH 2.060 uIU/mL Normal 0.300-4.200 [facility] Comment on above: Performed By: #### L 3410.9992 #### [facility] [address] [place], [place], [address] Total proteinon 10-08-2024 Protein [Mass/Vol] 7.6 g/dL 5.9-8.4 [facility] Urinalysis, Completeon 10-08 BACTERIA 0 SEEN Normal None Seen [facility] Comment on above: Order Comment: [id number] 2 DIHYDROTESTOSTERONE Performed By: #### L 3410.9992 #### [facility] [address] [place], [address] EPI,SQUAMOUS 0 SEEN Normal 0-5 [facility] Comment on above: Order Comment: [id number] 2 DIHYDROTESTOSTERONE Performed By: #### L 3410.9992 #### [facility] [address] [place], [address] Mucus Ql (Urine sed) 0 SEEN Normal [facility] Comment on above: Order Comment: [id number] 2 DIHYDROTESTOSTERONE Performed By: #### L 3410.9992 #### [facility] [address] [place], [address] RBC 0 SEEN Normal 0-5 [facility] Comment on above: Order Comment: [id number] 2 DIHYDROTESTOSTERONE Performed By: #### L 3410.9992 #### [facility] [address] [place], [address] WBC 0 SEEN Normal [address] [place] [address] Comment on above: Order Comment: [id number] 2 DIHYDROTESTOSTERONE Performed By: #### L 3410.9992 #### [facility] [address] [place], [address] Urine clarityon 10-08-2024 Clarity (U) Clear Clear [facility] Urine color determinationon 10-08-2024 Color (U) Yellow Yellow [facility] Urine glucose detectionon Glucose Ql (U) Normal mg/dl Normal [facility] Urine leukocyte esterase det ection by dipstickon 10-08-2024 Leukocyte esterase Test strip Ql (U) Negative Negative [facility] Urine pHon 10-08-2024 pH (U) 7.0 [pH] 5.0 - 8.0 [facility] Urine sediment bacteria coun t by microscopy (number/high power field)on 10-08-2024 Bacteria LM.HPF (Urine sed) [#/Area] 0 /[HPF] None Seen [facility] Urine specific gravity measu rementon 10-08-2024 Specific gravity (U) [Rel density] 1.010 1.002-1.030 [facility] Urine urobilinogen measureme nton 10-08-2024 Urobilinogen Ql (U) Normal mg/dl Normal [facility] White blood cell (WBC) count on 10-08-2024 WBC (Bld) [#/Vol] 7.1 10*3/uL 4.4-11.0 [facility] White blood cell counton White blood cell count 0 SEEN /hpf 0-5 [facility] CNOVon 08-08-2024 CNOV Office Visit (VAZQUEZ ) -------- MELANIE NAVARRO ([id number]) 1960 M Date Time Provider Department 08/08/24 3:20 PM JEREMIAS DEMPSEY JR During your visit today, we recorded the following information about you: Pulse Respiration Blood pressure Weight 60/minute 18/minute 170/90 101.5 kg Jeremias Dempsey Jr., MD 08/08/2024 4:32 PM Signed ESTABLISHED PATIENT VISIT CHIEF COMPLAINT: Follow Up HISTORY OF PRESENT ILLNESS: Melanie Navarro is a 64 year old male, BMI 33.05 kg/m2 with a PMH significant for and per last office visit of 02/18/24: 1. Parkinson's disease, unspecified whether dyskinesia present, unspecified whether manifestations fluctuate (HCC) - ICD9: 332.0, ICD10: G20.A1 (primary diagnosis) Patient with known history and exams consistent with PD. Since last saw me was placed on trial of Selegiline but no impact on symptoms per pt. My concern is patient needing a more frequent and thus, higher peak level dopamine med - and thus feel rather than trying to treat once daily, recommend the following: Trial of Sinemet 25/100mg TID (5 hours apart), followed by Sinemet CR 50/200mg 5 hours after last IR dose. 2. IBAN (obstructive sleep apnea) - ICD9: 327.23, ICD10: G47.33 Subjectively compliant. Need PAP data download for review. Requested from DME. 3. Frequent headaches - ICD9: 784.0, ICD10: R51.9 Resolved. 4. Tinnitus, unspecified laterality - ICD9: 388.30, ICD10: H93.19 Chronic, unchanged and for which pt has had prior workups including with ENT. 5. Hypertension, unspecified type - ICD9: 401.9, ICD10: I10 Elevated. Encouraged pt to follow up with PCP. Currently without symptoms. Note pt asx, but found to be hypertensive today with pt reporting he did not take anti HTN meds this AM. Also did not bring PAP device as requested by phone calls earlier this week. Patient states stopped the Sinemet as felt like it was doing nothing. States took meds like he was supposed to for 3 months and just did not feel like it made a difference. Tremor is constant now. States Tremor is keeping him up at night. Will be extremely tired, but it will keep him up. Also has RLS which typically has not bothered him but now that tremor is keeping him awake and as a result is focusing more on the RLS. Was on Requip years ago but did not provide relief of RLS. States is feeling weaker as well. Does take part in exercise class and feels better after class and reports no issues completing. Still using PAP. No downloads available for review. Current PAP device old and has SD card that cannot be read. Last download we have from 2021 suggests on pressure of 7 cmH2O. States never feels refreshed in the AM. States had prior PAP titration to determine this. I still do not have formal copy of original sleep study. Patient reports no issues with PAP. States having headaches at the end of the day. Has not followed up with PCP. Not checking BP at home. Admits to missing anti-HTN meds often. No associated sensitivities. Often posterior head. REVIEW OF SYSTEMS GENERAL:No weight loss, malaise or fevers. HEENT:NNo changes in hearing or vision, no nose bleeds or other nasal problems NECK:Negative for lumps, goiter, pain and significant neck swelling RESPIRATORY: Negative for cough, wheezing. Does have SOB intermittently. States saw cardiology who felt it was not cardiac. I dont have results but per pt had ECG and ECHO and told it was fine. CARDIOVASCULAR: Negative for chest pain, or palpitations. GASTROINTESTINAL: Negative for abdominal discomfort, blood in stools or black stools or change in bowel habits GENITOURINARY: No history of dysuria, frequency or incontinence MUSCULOSKELETAL: Negative for joint pain or swelling, back pain or muscle pain. NEUROLOGIC:Negative for focal numbness or weakness, and dizziness or syncope, vision changes, speech/languag changes - EXCEPT that as per HPI above. SKIN:Negative for lesions, rash, and itching. LAB/IMAGING: Those performed since patient's last visit have been reviewed. WBC (k/uL) Date Value 05/16/2021 6.90 RBC (m/uL) Date Value 05/16/2021 4.70 Hemoglobin (g/dL) Date Value 05/16/2021 13.6 Hematocrit (%) Date Value 05/16/2021 41.6 MCV (fL) Date Value 05/16/2021 88.5 MCH (pG) Date Value 05/16/2021 28.9 MCHC (g/dL) Date Value 05/16/2021 32.7 RDW-CV (%) Date Value 05/16/2021 13.2 Platelet Count (k/uL) Date Value 05/16/2021 198 MPV (fL) Date Value 05/16/2021 10.6 Glucose (mg/dL) Date Value 05/16/2021 92 BUN (mg/dL) Date Value 05/16/2021 15 Creatinine (mg/dL) Date Value 05/16/2021 0.97 Sodium (mmol/L) Date Value 05/16/2021 137 Potassium (mmol/L) Date Value 05/16/2021 4.3 Chloride (mmol/L) Date Value 05/16/2021 100 CO2 (mmol/L) Date Value 05/16/2021 26 Protein, Total (g/dL) Date Value 05/16/2021 7.4 Albumin (g (more content not included)... Normal [facility] 08-08-2024 CNPN Telephone (SLEWST) -------- MELANIE NAVARRO ([id number]) 1960 M Date Time Provider Department 08/08/24 JEREMIAS DEMPSEY JR During your visit today, we recorded the following information about you: Rosi Mcnair OCCA 08/08/2024 4:09 PM Signed TC to Dr. Page's office, no answer as office is currently closed. Need to get copy of patients sleep study from 10 years ago to send to [facility] with order for new Cpap device. All other documents printed and in holding folder at nurses desk to be faxed. Please try to call on next business day. Thank you. LEV Galvan Gillian, OCCA 08/11/2024 9:54 AM Signed TC to Dr. Page's office with no answer. Unable to leave at this time. Please try again later. LEV Galvan Gillian, OCCA 08/26/2024 10:38 AM Signed Faxed request for sleep study results to Dr. Page's office at [phone]. Please watch for fax. LEV Galvan Barbara, LPN 08/27/2024 1:22 PM Signed Received sleep study results from Dr. Miles. KAYCEE Stokes Gillian, OCCA 08/29/2024 5:09 PM Signed Orders faxed to [facility]. LEV Galvan Allergies As of Date: 08/08/2024 (No Known Allergies) Date Reviewed: 08/08/2024 Reviewed by: Jeremias Dempsey Jr., MD - Fully Assessed Reason for Visit: Request Outside Medical Records [[id number]] Cmt: Sleep Study Prescriptions as of 08/29/2024 - gabapentin (NEURONTIN) 300 mg capsule Take 1 cap 1 hour before bedtime. If still having tremor or RLS, can increase to 2 capsules 1 hour before bedtime. - carbidopa-levodopa CR (SINEMET CR) 50-200 mg per tablet TAKE 1 TABLET AT 8PM NIGHTLY. - carbidopa-levodopa (SINEMET) 25-100 mg per tablet Take 1 tablet at 5AM, 1 tablet at 10AM and 1 tablet at 3PM. - cholecalciferol, vitamin D3, (VITAMIN D3 ORAL) Take by mouth. - cyanocobalamin, vitamin B-12, (VITAMIN B-12 ORAL) Take by mouth. - amLODIPine (NORVASC) 10 mg tablet Take 10 mg by mouth daily at bedtime. - losartan-hydroCHLOROthia zide (HYZAAR) 100-25 mg per tablet Take 1 tablet by mouth once daily. Problem List As Of Date 08/08/2024 Noted Resolved Cerebrovascular accident (HCC) [I63.9] 09/15/2021 History of myocardial infarction [I25.2] 09/06/2016 Hyperlipidemia [E78.5] 09/15/2021 Hypertension [I10] 09/15/2021 Parkinson's disease (HCC) [G20.A1] 09/15/2021 Thrombocytopenia (HCC) [D69.6] 09/15/2021 IBAN (obstructive sleep apnea) [G47.33] 05/10/2022 Encounter Status:Closed by JORGE DUTTON [facility] 08/27/[address] [facility] -------- MELANIE NAVARRO ([id number]) 1960 M Date Time Provider Department 08/07/24 JEREMIAS DEMPSEY JR During your visit today, we recorded the following information about you: Jorge Dutton LPN 08/07/2024 3:10 PM Signed TC to pt. LM to call office. Need to know where Pt gets his CPAP supplies and to bring his machine for his appt. KAYCEE Stokes Lori 08/07/2024 4:10 PM Signed Patient returned call Could not remember where he gets supplies but will find out and will bring cpap with him to apt Rosi Mcnair OCCA 08/07/2024 5:17 PM Signed Below noted. LEV Galvan Allergies As of Date: 08/07/2024 (No Known Allergies) Date Reviewed: 02/18/2024 Reviewed by: Jeremias Dempsey Jr., MD - Fully Assessed Prescriptions as of 08/07/2024 - carbidopa-levodopa CR (SINEMET CR) 50-200 mg per tablet TAKE 1 TABLET AT 8PM NIGHTLY. - carbidopa-levodopa (SINEMET) 25-100 mg per tablet Take 1 tablet at 5AM, 1 tablet at 10AM and 1 tablet at 3PM. - cholecalciferol, vitamin D3, (VITAMIN D3 ORAL) Take by mouth. - cyanocobalamin, vitamin B-12, (VITAMIN B-12 ORAL) Take by mouth. - amLODIPine (NORVASC) 10 mg tablet Take 10 mg by mouth daily at bedtime. - losartan-hydroCHLOROthia zide (HYZAAR) 100-25 mg per tablet Take 1 tablet by mouth once daily. Problem List As Of Date 08/07/2024 Noted Resolved Cerebrovascular accident (HCC) [I63.9] 09/15/2021 History of myocardial infarction [I25.2] 09/06/2016 Hyperlipidemia [E78.5] 09/15/2021 Hypertension [I10] 09/15/2021 Parkinson's disease (HCC) [G20.A1] 09/15/2021 Thrombocytopenia (HCC) [D69.6] 09/15/2021 IBAN (obstructive sleep apnea) [G47.33] 05/10/2022 Encounter Status:Closed by ROSI MCNAIR on 08/07/24 Normal [facility] DHEA Sulfateon 08-01-2024 DHEA SULFATE 95.2 ug/dL Normal 48.9-344.2 [facility] Comment on above: Order Comment: Test( s) 931901-Bzahjwq T3, Serumwas developed and its performance characteristicsdetermined by [facility]. It has not been cleared or approvedby the Food and Drug Administration.N Performed By: #### L 501.2276 #### [facility] [address] [place], [address] Insulin Levelon 08-01-2024 INSULIN,FASTING 18.6 uIU/mL Normal 2.6-24.9 [facility] Comment on above: Order Comment: Test( s) 694687-Bctcteh T3, Serumwas developed and its performance characteristicsdetermined by [facility]. It has not been cleared or approvedby the Food and Drug Administration. Performed By: #### L 501.2276 #### [facility] [address] [place], [address] Lipoprotein Aon 08-01-2024 Lipoprotein a [Moles/Vol] 22.2 nmol/L Normal <75.0 [facility] Comment on above: Order Comment: Test( s) 270608-Zgdffkt T3, Serumwas developed and its performance characteristicsdetermined by [facility]. It has not been cleared or approvedby the Food and Drug Administration. Result Comment: Note : Values greater than or equal to 75.0 nmol/L may indicate an independent risk factor for CHD, but must be evaluated with caution when applied to non- populations due to the influence of genetic factors on Lp(a) across ethnicities. Performed By: #### L 501.2276 #### [facility] [address] [place], [place], [address] Sex Hormone-binding Globulin on 08-01-2024 SHBG 36.6 nmol/L Normal 19.3-76.4 [facility] Comment on above: Order Comment: Test( s) 965705-Koavogh T3, Serumwas developed and its performance characteristicsdetermined by [facility]. It has not been cleared or approvedby the Food and Drug Administration. Result Comment: Perf ormed at: [address] [id number] Auto Transmission Specialist: Yg Perrin PhD, Phone: [phone] Performed at: [address] [id number] Auto [employer] Specialist: Margarito Sanders MD, Phone: [phone] Performed By: #### L 501.2276 #### [facility] [address] [place], [address] T3 Reverseon 08-01-2024 T3 REVERSE 15.7 ng/dL Normal 9.2-24.1 [facility] Comment on above: Order Comment: Test( s) 359369-Mqacgvj T3, Serumwas developed and its performance characteristicsdetermined by [facility]. It has not been cleared or approvedby the Food and Drug Administration.N Performed By: #### L 501.2276 #### [facility] [address] [place], [address] Testosterone, Total / Freeon 08-01-2024 TESTOSTER,FREE 3.12 ng/dL Abnormal 5.00-21.00 [facility] Comment on above: Order Comment: Test( s) 826009-Mqrhvtp T3, Serumwas developed and its performance characteristicsdetermined by [facility]. It has not been cleared or approvedby the Food and Drug Administration.N Performed By: #### L 501.2276 #### [facility] [address] [place], [address] TESTOSTER,TOTAL 105 ng/dL Low 264-916 [facility] Comment on above: Order Comment: Test( s) 590791-Cjtjrlm T3, Serumwas developed and its performance characteristicsdetermined by [facility]. It has not been cleared or approvedby the Food and Drug Administration.N Result Comment: Adul t male reference interval is based on a population of healthy nonobese males (BMI <30) between 19 and 39 years old. Remberto et.al. JCEM 2017,102;1656-1518. PMID: [id number]. Performed By: #### L 501.2276 #### [facility] [address] [place], [address] TESTOSTERONE,%F 2.97 Normal 1.50-4.20 [facility] Comment on above: Order Comment: Test( s) 188967-Utuknyk T3, Serumwas developed and its performance characteristicsdetermined by [facility]. It has not been cleared or approvedby the Food and Drug Administration.N Performed By: #### L 501.2276 #### [facility] [address] [place], [place], [address] Thyroglobulin w/Anti-TG ABon 08-01-2024 Anti-TG AB < 1.0 Normal 0.0-0.9 [facility] Comment on above: Order Comment: Test( s) 637303-Suyjmox T3, Serumwas developed and its performance characteristicsdetermined by [employer]. It has not been cleared or approvedby the Food and Drug Administration. Result Comment: Thyr oglobulin Antibody measured by Mike Ct Methodology It should be noted that the presence of thyroglobulin antibodies may not be pathogenic nor diagnostic, especially at very low levels. The assay substance abuse counselor has found that four percent of individuals without evidence of thyroid disease or autoimmunity will have positive TgAb levels up to 4 IU/mL. Performed By: #### L 501.2276 #### [facility] [address] [place], [address] THYROGLOB QUANT 9.7 ng/mL Normal 1.4-29.2 [facility] Comment on above: Order Comment: Test( s) 384550-Ofixqkh T3, Serumwas developed and its performance characteristicsdetermined by [employer]. It has not been cleared or approvedby the Food and Drug Administration. Result Comment: Acco rding to the National Academy of Clinical Biochemistry, the reference interval for Thyroglobulin (TG) should be related to euthyroid patients and not for patients who underwent thyroidectomy. TG reference intervals for these patients depend on the residual mass of the thyroid tissue left after surgery. Establishing a post-operative baseline is recommended. The assay limit of quantitation is 0.1 ng/mL Thyroglobulin measured by Chronogolf Ct Immunometric Assay Performed By: #### L 501.2276 #### [facility] [address] [place], [address] Thyroid Peroxidase ABon 050 THYR PEROX AB < 9 Normal 0-34 [facility] Comment on above: Order Comment: Test( s) 766195-Uwqzadz T3, Serumwas developed and its performance characteristicsdetermined by [facility]. It has not been cleared or approvedby the Food and Drug Administration. Performed By: #### L 501.2276 #### [facility] [address] [facility] [place], [place], [address] L3410.9992on 07-30-2024 [facility]. COMMENT Normal . [facility] Comment on above: Order Comment: 97028 2 DIHYDROTESTOSTERONE Result Comment: Test Ordered: [id number] Dihydrotestosterone Dihydrotestosterone 8.5 [L ] ng/dL Reference Range: . This test was developed and its performance characteristics determined by [facility]. It has not been cleared or approved by the Food and Drug Administration. Reference Range: Adult Male: 30 - 85 Performed at: [facility] [address] [place] [id number] Auto [employer] Specialist: Agapito Delgadillo MD, Phone: [phone] Performed at: [address] [id number] Auto [employer] Specialist: Yg Perrin PhD, Phone: [phone] Performed By: #### L 3410.9992 #### [facility] [address] [facility] [place], [place], [address] L3410.9992on 07-25-2024 [facility]. COMMENT Normal . [facility] Comment on above: Order Comment: 87421 3IGF Result Comment: Test Ordered: [id number] IGF-1 Insulin-Like Growth Factor I 76 ng/mL Reference Range: 64-240 Performed at: [address] [id number] [employer] Specialist: Margarito Sanders MD, Phone: [phone] Performed at: [address] [id number] [employer] Specialist: Yg Perrin PhD, Phone: [phone] Performed By: #### L 501.2276 #### [facility] [address] [place], [place], [address] L803.0600on 07-24-2024 HOMOCYSTEINE 14.0 umol/L Normal 0.0-17.2 [facility] Comment on above: Performed By: #### L 501.2276 #### [facility] [address] [place], [place], [address] PROGESTERONE 4317on 07-25-19 25 PROGESTERONE 0.5 ng/mL Normal 0.0-0.5 [facility] Comment on above: Order Comment: N Result Comment: Perf ormed at: [facility] [id number] [employer] Specialist: Yg Perrin PhD, Phone: [phone] Performed By: #### L 3410.9992, L503.6030, L3100.5310, L100.0500, L3300.7100, L3300.6900, L503.6550, L3300.6820, L509.6001, L501.5200, L3400.4600, L506.0400, L3300.3500, L500.4050, L3300.1750, L501.1400, L3300.1500, L803.0600, L500.4100, L801.2600, L501.9940, L501.6710, L501.9520, L501.9985, L501.59228, L506.0200, L503.0106, L3100.5060, L506.1001 ####[facility] [address] [facility] [address] [place], [place], [address] Anion gap in Serum or Plasma on 07-22-2024 Anion gap [Moles/Vol] 12 mmol/L 5-15 [facility] BUN/creatinine ratioon 07-22 Urea nitrogen/Creatinine [Mass ratio] 22.1 mg/mg High 10-20 [facility] Bilirubin, totalon Bilirubin [Mass/Vol] 0.36 mg/dL 0.00-1.30 [facility] CBC-Complete Blood Cnt No Di ffon 07-22-2024 Erythrocyte distribution width (RBC) [Ratio] 13.1 % Normal 11.6-14.6 [facility] Comment on above: Performed By: #### L 3410.9992, L503.6030, L3100.5310, L100.0500, L3300.7100, L3300.6900, L503.6550, L3300.6820, L509.6001, L501.5200, L3400.4600, L506.0400, L3300.3500, L500.4050, L3300.1750, L501.1400, L3300.1500, L803.0600, L500.4100, L801.2600, L501.9940, L501.6710, L501.9520, L501.9985, L501.27466, L506.0200, L503.0106, L3100.5060, L506.1001 ####[facility] [address] [place], [place], [address] Hematocrit (Bld) [Volume fraction] 40.6 % Normal 40-54 [facility] Comment on above: Performed By: #### L 3410.9992, L503.6030, L3100.5310, L100.0500, L3300.7100, L3300.6900, L503.6550, L3300.6820, L509.6001, L501.5200, L3400.4600, L506.0400, L3300.3500, L500.4050, L3300.1750, L501.1400, L3300.1500, L803.0600, L500.4100, L801.2600, L501.9940, L501.6710, L501.9520, L501.9985, L501.95050, L506.0200, L503.0106, L3100.5060, L506.1001 ####[facility] [address] [place], [address] Hemoglobin (Bld) [Mass/Vol] 13.6 g/dL Normal 13.0-16.5 [facility] Comment on above: Performed By: #### L 3410.9992, L503.6030, L3100.5310, L100.0500, L3300.7100, L3300.6900, L503.6550, L3300.6820, L509.6001, L501.5200, L3400.4600, L506.0400, L3300.3500, L500.4050, L3300.1750, L501.1400, L3300.1500, L803.0600, L500.4100, L801.2600, L501.9940, L501.6710, L501.9520, L501.9985, L501.65921, L506.0200, L503.0106, L3100.5060, L506.1001 ####[facility] [address] [facility] [place], [place], [address] MCH (RBC) [Entitic mass] 29.5 pg Normal 27.0-32.0 [facility] Comment on above: Performed By: #### L 3410.9992, L503.6030, L3100.5310, L100.0500, L3300.7100, L3300.6900, L503.6550, L3300.6820, L509.6001, L501.5200, L3400.4600, L506.0400, L3300.3500, L500.4050, L3300.1750, L501.1400, L3300.1500, L803.0600, L500.4100, L801.2600, L501.9940, L501.6710, L501.9520, L501.9985, L501.87663, L506.0200, L503.0106, L3100.5060, L506.1001 ####[facility] [address] [facility] [place], [place], [address] MCHC (RBC) [Mass/Vol] 33.5 g/dL Normal 32-36 [facility] Comment on above: Performed By: #### L 3410.9992, L503.6030, L3100.5310, L100.0500, L3300.7100, L3300.6900, L503.6550, L3300.6820, L509.6001, L501.5200, L3400.4600, L506.0400, L3300.3500, L500.4050, L3300.1750, L501.1400, L3300.1500, L803.0600, L500.4100, L801.2600, L501.9940, L501.6710, L501.9520, L501.9985, L501.37935, L506.0200, L503.0106, L3100.5060, L506.1001 ####[facility] [address] [place], [address] MCV (RBC) [Entitic vol] 88.1 fL Normal 80-94 [facility] Comment on above: Performed By: #### L 3410.9992, L503.6030, L3100.5310, L100.0500, L3300.7100, L3300.6900, L503.6550, L3300.6820, L509.6001, L501.5200, L3400.4600, L506.0400, L3300.3500, L500.4050, L3300.1750, L501.1400, L3300.1500, L803.0600, L500.4100, L801.2600, L501.9940, L501.6710, L501.9520, L501.9985, L501.19001, L506.0200, L503.0106, L3100.5060, L506.1001 ####[facility] [address] [place], [address] Platelet mean volume (Bld) [Entitic vol] 10.9 fL Normal 6.2-12.0 [facility] Comment on above: Performed By: #### L 3410.9992, L503.6030, L3100.5310, L100.0500, L3300.7100, L3300.6900, L503.6550, L3300.6820, L509.6001, L501.5200, L3400.4600, L506.0400, L3300.3500, L500.4050, L3300.1750, L501.1400, L3300.1500, L803.0600, L500.4100, L801.2600, L501.9940, L501.6710, L501.9520, L501.9985, L501.04707, L506.0200, L503.0106, L3100.5060, L506.1001 ####[facility] [address] [facility]. [place], [place], [id number] Platelets (Bld) [#/Vol] 119 10*3/uL Low 150-450 [facility] Comment on above: Performed By: #### L 3410.9992, L503.6030, L3100.5310, L100.0500, L3300.7100, L3300.6900, L503.6550, L3300.6820, L509.6001, L501.5200, L3400.4600, L506.0400, L3300.3500, L500.4050, L3300.1750, L501.1400, L3300.1500, L803.0600, L500.4100, L801.2600, L501.9940, L501.6710, L501.9520, L501.9985, L501.74149, L506.0200, L503.0106, L3100.5060, L506.1001 ####[facility] [address] [facility]. [place], [place], [id number] RBC (Bld) [#/Vol] 4.61 10*6/uL Normal 4.6-6.2 [facility] Comment on above: Performed By: #### L 3410.9992, L503.6030, L3100.5310, L100.0500, L3300.7100, L3300.6900, L503.6550, L3300.6820, L509.6001, L501.5200, L3400.4600, L506.0400, L3300.3500, L500.4050, L3300.1750, L501.1400, L3300.1500, L803.0600, L500.4100, L801.2600, L501.9940, L501.6710, L501.9520, L501.9985, L501.55765, L506.0200, L503.0106, L3100.5060, L506.1001 ####[facility] [address] [facility]. [place], [place], [id number] RDW SD 41.8 fl Normal 35.1-43.9 [facility] Comment on above: Performed By: #### L 3410.9992, L503.6030, L3100.5310, L100.0500, L3300.7100, L3300.6900, L503.6550, L3300.6820, L509.6001, L501.5200, L3400.4600, L506.0400, L3300.3500, L500.4050, L3300.1750, L501.1400, L3300.1500, L803.0600, L500.4100, L801.2600, L501.9940, L501.6710, L501.9520, L501.9985, L501.98588, L506.0200, L503.0106, L3100.5060, L506.1001 ####[facility] [address] [facility]. [place], [place], [id number] WBC (Bld) [#/Vol] 6.1 10*3/uL Normal 4.4-11.0 [facility] Comment on above: Performed By: #### L 3410.9992, L503.6030, L3100.5310, L100.0500, L3300.7100, L3300.6900, L503.6550, L3300.6820, L509.6001, L501.5200, L3400.4600, L506.0400, L3300.3500, L500.4050, L3300.1750, L501.1400, L3300.1500, L803.0600, L500.4100, L801.2600, L501.9940, L501.6710, L501.9520, L501.9985, L501.63624, L506.0200, L503.0106, L3100.5060, L506.1001 ####[facility] [address] [place], [address] CRPon 07-22-2024 C-REACTIVE PROT 5.65 mg/L High 0.0-3.0 [facility] Comment on above: Performed By: #### L 3410.9992, L503.6030, L3100.5310, L100.0500, L3300.7100, L3300.6900, L503.6550, L3300.6820, L509.6001, L501.5200, L3400.4600, L506.0400, L3300.3500, L500.4050, L3300.1750, L501.1400, L3300.1500, L803.0600, L500.4100, L801.2600, L501.9940, L501.6710, L501.9520, L501.9985, L501.39542, L506.0200, L503.0106, L3100.5060, L506.1001 ####[facility] [address] [facility] [address]. [place], [place], [id number] Calculated very low density lipoprotein (VLDL) cholesterol measurementon 07-22-2024 Calculated very low density lipoprotein (VLDL) cholesterol measurement 26 mg/dL 5-40 [facility] Carbon dioxide, total [Moles /volume] in Central venous bloodon 07-22-2024 CO2 [Moles/Vol] 21.0 mmol/L 21.0-32.0 [facility] Chloride assayon 07-22-2024 Chloride [Moles/Vol] 103 mmol/L 98-108 [facility] Comprehensive Metabolic Prof ilon 07-22-2024 Albumin [Mass/Vol] 4.3 g/dL Normal 3.4-4.8 [facility] Comment on above: Performed By: #### L 3410.9992, L503.6030, L3100.5310, L100.0500, L3300.7100, L3300.6900, L503.6550, L3300.6820, L509.6001, L501.5200, L3400.4600, L506.0400, L3300.3500, L500.4050, L3300.1750, L501.1400, L3300.1500, L803.0600, L500.4100, L801.2600, L501.9940, L501.6710, L501.9520, L501.9985, L501.88779, L506.0200, L503.0106, L3100.5060, L506.1001 ####[facility] [address] [place], [place], [id number] Albumin/Globulin [Mass ratio] 1.3 {ratio} Normal 0.9-2.4 [facility] Comment on above: Performed By: #### L 3410.9992, L503.6030, L3100.5310, L100.0500, L3300.7100, L3300.6900, L503.6550, L3300.6820, L509.6001, L501.5200, L3400.4600, L506.0400, L3300.3500, L500.4050, L3300.1750, L501.1400, L3300.1500, L803.0600, L500.4100, L801.2600, L501.9940, L501.6710, L501.9520, L501.9985, L501.67249, L506.0200, L503.0106, L3100.5060, L506.1001 ####[facility] [address] [place], [place], [id number] ALK PHOS 130 U/L High 40-129 [facility] Comment on above: Performed By: #### L 3410.9992, L503.6030, L3100.5310, L100.0500, L3300.7100, L3300.6900, L503.6550, L3300.6820, L509.6001, L501.5200, L3400.4600, L506.0400, L3300.3500, L500.4050, L3300.1750, L501.1400, L3300.1500, L803.0600, L500.4100, L801.2600, L501.9940, L501.6710, L501.9520, L501.9985, L501.98614, L506.0200, L503.0106, L3100.5060, L506.1001 ####[facility] [address] [place], [address] ALT [Catalytic activity/Vol] 32 U/L Normal <=46 [facility] Comment on above: Performed By: #### L 3410.9992, L503.6030, L3100.5310, L100.0500, L3300.7100, L3300.6900, L503.6550, L3300.6820, L509.6001, L501.5200, L3400.4600, L506.0400, L3300.3500, L500.4050, L3300.1750, L501.1400, L3300.1500, L803.0600, L500.4100, L801.2600, L501.9940, L501.6710, L501.9520, L501.9985, L501.56302, L506.0200, L503.0106, L3100.5060, L506.1001 ####[facility] [address] [place], [place], [phone] AST [Catalytic activity/Vol] 36 U/L Normal <=37 [facility] Comment on above: Performed By: #### L 3410.9992, L503.6030, L3100.5310, L100.0500, L3300.7100, L3300.6900, L503.6550, L3300.6820, L509.6001, L501.5200, L3400.4600, L506.0400, L3300.3500, L500.4050, L3300.1750, L501.1400, L3300.1500, L803.0600, L500.4100, L801.2600, L501.9940, L501.6710, L501.9520, L501.9985, L501.84228, L506.0200, L503.0106, L3100.5060, L506.1001 ####[facility] [address] [place], [place], [address] Bilirubin [Mass/Vol] 0.36 mg/dL Normal 0.00-1.30 [facility] Comment on above: Performed By: #### L 3410.9992, L503.6030, L3100.5310, L100.0500, L3300.7100, L3300.6900, L503.6550, L3300.6820, L509.6001, L501.5200, L3400.4600, L506.0400, L3300.3500, L500.4050, L3300.1750, L501.1400, L3300.1500, L803.0600, L500.4100, L801.2600, L501.9940, L501.6710, L501.9520, L501.9985, L501.59469, L506.0200, L503.0106, L3100.5060, L506.1001 ####[facility] [address] [place], [place], [id number] BUN/CRE 22.1 RATIO High 10-20 [facility] Comment on above: Performed By: #### L 3410.9992, L503.6030, L3100.5310, L100.0500, L3300.7100, L3300.6900, L503.6550, L3300.6820, L509.6001, L501.5200, L3400.4600, L506.0400, L3300.3500, L500.4050, L3300.1750, L501.1400, L3300.1500, L803.0600, L500.4100, L801.2600, L501.9940, L501.6710, L501.9520, L501.9985, L501.72138, L506.0200, L503.0106, L3100.5060, L506.1001 ####[facility] [address] [facility]. [place], [place], [id number] Calcium [Mass/Vol] 9.0 mg/dL Normal 7.6-11.0 [facility] Comment on above: Performed By: #### L 3410.9992, L503.6030, L3100.5310, L100.0500, L3300.7100, L3300.6900, L503.6550, L3300.6820, L509.6001, L501.5200, L3400.4600, L506.0400, L3300.3500, L500.4050, L3300.1750, L501.1400, L3300.1500, L803.0600, L500.4100, L801.2600, L501.9940, L501.6710, L501.9520, L501.9985, L501.81789, L506.0200, L503.0106, L3100.5060, L506.1001 ####[facility] [address] [facility]. [place], [place], [id number] Chloride [Moles/Vol] 103 mmol/L Normal 98-108 [facility] Comment on above: Performed By: #### L 3410.9992, L503.6030, L3100.5310, L100.0500, L3300.7100, L3300.6900, L503.6550, L3300.6820, L509.6001, L501.5200, L3400.4600, L506.0400, L3300.3500, L500.4050, L3300.1750, L501.1400, L3300.1500, L803.0600, L500.4100, L801.2600, L501.9940, L501.6710, L501.9520, L501.9985, L501.84502, L506.0200, L503.0106, L3100.5060, L506.1001 ####[facility] [address] [facility]. [place], [place], [id number] CO2 [Moles/Vol] 21.0 mmol/L Normal 21.0-32.0 [facility] Comment on above: Performed By: #### L 3410.9992, L503.6030, L3100.5310, L100.0500, L3300.7100, L3300.6900, L503.6550, L3300.6820, L509.6001, L501.5200, L3400.4600, L506.0400, L3300.3500, L500.4050, L3300.1750, L501.1400, L3300.1500, L803.0600, L500.4100, L801.2600, L501.9940, L501.6710, L501.9520, L501.9985, L501.10770, L506.0200, L503.0106, L3100.5060, L506.1001 ####[facility] [address] [facility]. [place], [place], [id number] Creatinine [Mass/Vol] 0.92 mg/dL Normal 0.70-1.20 [facility] Comment on above: Performed By: #### L 3410.9992, L503.6030, L3100.5310, L100.0500, L3300.7100, L3300.6900, L503.6550, L3300.6820, L509.6001, L501.5200, L3400.4600, L506.0400, L3300.3500, L500.4050, L3300.1750, L501.1400, L3300.1500, L803.0600, L500.4100, L801.2600, L501.9940, L501.6710, L501.9520, L501.9985, L501.22082, L506.0200, L503.0106, L3100.5060, L506.1001 ####[facility] [address] [facility] [address] [place], [place], [id number] GAP 12 Normal 5-15 [facility] Comment on above: Performed By: #### L 3410.9992, L503.6030, L3100.5310, L100.0500, L3300.7100, L3300.6900, L503.6550, L3300.6820, L509.6001, L501.5200, L3400.4600, L506.0400, L3300.3500, L500.4050, L3300.1750, L501.1400, L3300.1500, L803.0600, L500.4100, L801.2600, L501.9940, L501.6710, L501.9520, L501.9985, L501.92376, L506.0200, L503.0106, L3100.5060, L506.1001 ####[facility] [address] [place], [place], [id number] GFR/1.73 sq M.predicted among non-blacks MDRD (S/P/Bld) [Vol rate/Area] 93 mL/min/{1.73_m2} Normal >60 [facility] Comment on above: Result Comment: mL/m in/1.73m2 CKD-EPI Creatinine Equation (2020) Performed By: #### L 3410.9992, L503.6030, L3100.5310, L100.0500, L3300.7100, L3300.6900, L503.6550, L3300.6820, L509.6001, L501.5200, L3400.4600, L506.0400, L3300.3500, L500.4050, L3300.1750, L501.1400, L3300.1500, L803.0600, L500.4100, L801.2600, L501.9940, L501.6710, L501.9520, L501.9985, L501.60103, L506.0200, L503.0106, L3100.5060, L506.1001 ####[facility] [address] [place], [place], [address] Globulin (S) [Mass/Vol] 3.2 g/dL Normal 2.2-4.2 [facility] Comment on above: Performed By: #### L 3410.9992, L503.6030, L3100.5310, L100.0500, L3300.7100, L3300.6900, L503.6550, L3300.6820, L509.6001, L501.5200, L3400.4600, L506.0400, L3300.3500, L500.4050, L3300.1750, L501.1400, L3300.1500, L803.0600, L500.4100, L801.2600, L501.9940, L501.6710, L501.9520, L501.9985, L501.34531, L506.0200, L503.0106, L3100.5060, L506.1001 ####[facility] [address] [facility]. [place], [place], [address] Glucose [Mass/Vol] 94 mg/dL Normal 70-99 [facility] Comment on above: Performed By: #### L 3410.9992, L503.6030, L3100.5310, L100.0500, L3300.7100, L3300.6900, L503.6550, L3300.6820, L509.6001, L501.5200, L3400.4600, L506.0400, L3300.3500, L500.4050, L3300.1750, L501.1400, L3300.1500, L803.0600, L500.4100, L801.2600, L501.9940, L501.6710, L501.9520, L501.9985, L501.03808, L506.0200, L503.0106, L3100.5060, L506.1001 ####[facility] [address] [facility]. [place], [place], [phone](748) Potassium [Moles/Vol] 4.1 mmol/L Normal 3.3-5.1 [facility] Comment on above: Performed By: #### L 3410.9992, L503.6030, L3100.5310, L100.0500, L3300.7100, L3300.6900, L503.6550, L3300.6820, L509.6001, L501.5200, L3400.4600, L506.0400, L3300.3500, L500.4050, L3300.1750, L501.1400, L3300.1500, L803.0600, L500.4100, L801.2600, L501.9940, L501.6710, L501.9520, L501.9985, L501.92290, L506.0200, L503.0106, L3100.5060, L506.1001 ####[facility] [address] [facility] [place], [place], [address] Sodium [Moles/Vol] 136 mmol/L Normal 133-145 [facility] Comment on above: Performed By: #### L 3410.9992, L503.6030, L3100.5310, L100.0500, L3300.7100, L3300.6900, L503.6550, L3300.6820, L509.6001, L501.5200, L3400.4600, L506.0400, L3300.3500, L500.4050, L3300.1750, L501.1400, L3300.1500, L803.0600, L500.4100, L801.2600, L501.9940, L501.6710, L501.9520, L501.9985, L501.84384, L506.0200, L503.0106, L3100.5060, L506.1001 ####[facility] [address] [place], [place], [address] T PROT 7.5 g/dL Normal 5.9-8.4 [facility] Comment on above: Performed By: #### L 3410.9992, L503.6030, L3100.5310, L100.0500, L3300.7100, L3300.6900, L503.6550, L3300.6820, L509.6001, L501.5200, L3400.4600, L506.0400, L3300.3500, L500.4050, L3300.1750, L501.1400, L3300.1500, L803.0600, L500.4100, L801.2600, L501.9940, L501.6710, L501.9520, L501.9985, L501.86449, L506.0200, L503.0106, L3100.5060, L506.1001 ####[facility] [address] [facility]. [place], [place], [id number] Urea nitrogen [Mass/Vol] 20 mg/dL High 4-19 [facility] Comment on above: Performed By: #### L 3410.9992, L503.6030, L3100.5310, L100.0500, L3300.7100, L3300.6900, L503.6550, L3300.6820, L509.6001, L501.5200, L3400.4600, L506.0400, L3300.3500, L500.4050, L3300.1750, L501.1400, L3300.1500, L803.0600, L500.4100, L801.2600, L501.9940, L501.6710, L501.9520, L501.9985, L501.30391, L506.0200, L503.0106, L3100.5060, L506.1001 ####[facility] [address] [place], [place], [address] Erythrocyte distribution wid th ratioon 07-22-2024 Erythrocyte distribution width (RBC) [Ratio] 13.1 % 11.6-14.6 [facility] Erythrocyte distribution wid th standard deviationon 07-22-2024 Erythrocyte distribution width (RBC) [Ratio] 41.8 fl 35.1-43.9 [facility] Estradiolon 07-22-2024 ESTRADIOL 9.9 pg/mL Normal [facility] Comment on above: Result Comment: MALE S ADULT MALE: 10-40 pg/mL EVANGELIST STAGES MEAN AGE REFERENCE RANGES Stage I(>14 days and prepubertal) 7.1 years Undetectable-13 pg/mL Stage II 12.1 years Undetectable-16 pg/mL Stage III 13.6 years Undetectable-26 pg/mL Stage IV 15.1 years Undetectable-38 pg/mL Stage V 18 years 10-40 pg/mL Puberty onset (transition from Evangelist stage I to Evangelist Stage II) occurs for boys at a median age of 11.5 (+/- 2) years. For boys, there is no proven relationship between puberty onset and body weight or ethnic origin. Progression through Evangelist stages is variable. Evangelist stage V (adult) should be reached by age 18. Performed By: #### L 3410.9992, L503.6030, L3100.5310, L100.0500, L3300.7100, L3300.6900, L503.6550, L3300.6820, L509.6001, L501.5200, L3400.4600, L506.0400, L3300.3500, L500.4050, L3300.1750, L501.1400, L3300.1500, L803.0600, L500.4100, L801.2600, L501.9940, L501.6710, L501.9520, L501.9985, L501.05674, L506.0200, L503.0106, L3100.5060, L506.1001 ####[facility] [address] [place], [place], [id number] Ferritinon 07-22-2024 Ferritin [Mass/Vol] 269 ng/mL Normal 37-417 [facility] Comment on above: Performed By: #### L 3410.9992, L503.6030, L3100.5310, L100.0500, L3300.7100, L3300.6900, L503.6550, L3300.6820, L509.6001, L501.5200, L3400.4600, L506.0400, L3300.3500, L500.4050, L3300.1750, L501.1400, L3300.1500, L803.0600, L500.4100, L801.2600, L501.9940, L501.6710, L501.9520, L501.9985, L501.59934, L506.0200, L503.0106, L3100.5060, L506.1001 ####[facility] [address] [facility] [address] [place], [place], [id number] Folate [Moles/volume] in Ser um or Plasmaon 07-22-2024 Folate [Moles/Vol] 5.56 ng/mL 4.60-34.80 [facility] Comment on above: Hemolysis, Results w ill be affected, Requires Recollection. Folates,Serum (Folic Acid)on 07-22-2024 FOLATES,SERUM 5.56 ng/mL Normal 4.60-34.80 [facility] Comment on above: Order Comment: N Result Comment: Hemo lysis, Results will be affected, Requires Recollection. Performed By: #### L 3410.9992, L503.6030, L3100.5310, L100.0500, L3300.7100, L3300.6900, L503.6550, L3300.6820, L509.6001, L501.5200, L3400.4600, L506.0400, L3300.3500, L500.4050, L3300.1750, L501.1400, L3300.1500, L803.0600, L500.4100, L801.2600, L501.9940, L501.6710, L501.9520, L501.9985, L501.11494, L506.0200, L503.0106, L3100.5060, L506.1001 ####[facility] [address] [facility] [place], [place], [id number] Free T3on 07-22-2024 Free T3 [Mass/Vol] 2.7 pg/mL Normal 2.18-3.98 [facility] Comment on above: Order Comment: N Performed By: #### L 3410.9992, L503.6030, L3100.5310, L100.0500, L3300.7100, L3300.6900, L503.6550, L3300.6820, L509.6001, L501.5200, L3400.4600, L506.0400, L3300.3500, L500.4050, L3300.1750, L501.1400, L3300.1500, L803.0600, L500.4100, L801.2600, L501.9940, L501.6710, L501.9520, L501.9985, L501.97936, L506.0200, L503.0106, L3100.5060, L506.1001 ####[facility] [address] [facility] [place], [place], [id number] Free T3 [Mass/Vol] 2.7 pg/mL 2.18-3.98 [facility] Free testosterone percentage on 07-22-2024 Testosterone Free/Testosterone.total [Mass fraction] 2.97 % 1.50-4.20 [facility] Glomerular filtration rate ( GFR) estimation/1.73 sq m using serum, plasma, or whole bon 07-22-2024 GFR/1.73 sq M.predicted among non-blacks MDRD (S/P/Bld) [Vol rate/Area] 93 mL/min/{1.73_m2} >60 [facility] Comment on above: mL/min/1.73m2 CKD-EP I Creatinine Equation (2020) Hematocrit Auto (Bld) [Volum e fraction]on 07-22-2024 Hematocrit (Bld) [Volume fraction] 40.6 % 40-54 [facility] Hemoglobin A1con 07-22-2024 HbA1c (Bld) [Mass fraction] 5.5 % Normal <=5.6 [facility] Comment on above: Result Comment: Norm al < 5.7 % Prediabetic 5.7 - 6.4 % Diabetic >or= 6.5 % Please note range changes. Performed By: #### L 3410.9992, L503.6030, L3100.5310, L100.0500, L3300.7100, L3300.6900, L503.6550, L3300.6820, L509.6001, L501.5200, L3400.4600, L506.0400, L3300.3500, L500.4050, L3300.1750, L501.1400, L3300.1500, L803.0600, L500.4100, L801.2600, L501.9940, L501.6710, L501.9520, L501.9985, L501.45797, L506.0200, L503.0106, L3100.5060, L506.1001 ####[facility] [address] [place], [place], [id number] Hemoglobin A1c percentageon 07-22-2024 HbA1c (Bld) [Mass fraction] 5.5 % <5.7 [facility] Comment on above: Normal < 5.7 % Predi abetic 5.7 - 6.4 % Diabetic >or= 6.5 % Please note range changes. Hemoglobin measurementon Hemoglobin (Bld) [Mass/Vol] 13.6 g/dL 13.0-16.5 [facility] Iron measurement (mass/mass) on 07-22-2024 Iron (Unsp spec) [Mass/Mass] 60 ug/dL Low 65-175 [facility] Iron+Iron Binding Capacityon 07-22-2024 Iron [Mass/Vol] 60 ug/dL Low 65-175 [facility] Comment on above: Performed By: #### L 3410.9992, L503.6030, L3100.5310, L100.0500, L3300.7100, L3300.6900, L503.6550, L3300.6820, L509.6001, L501.5200, L3400.4600, L506.0400, L3300.3500, L500.4050, L3300.1750, L501.1400, L3300.1500, L803.0600, L500.4100, L801.2600, L501.9940, L501.6710, L501.9520, L501.9985, L501.01785, L506.0200, L503.0106, L3100.5060, L506.1001 ####[facility] [address] [place], [place], [id number] IRON SATURATION 19.0 Normal 9-55 [facility] Comment on above: Performed By: #### L 3410.9992, L503.6030, L3100.5310, L100.0500, L3300.7100, L3300.6900, L503.6550, L3300.6820, L509.6001, L501.5200, L3400.4600, L506.0400, L3300.3500, L500.4050, L3300.1750, L501.1400, L3300.1500, L803.0600, L500.4100, L801.2600, L501.9940, L501.6710, L501.9520, L501.9985, L501.94901, L506.0200, L503.0106, L3100.5060, L506.1001 ####[facility] [address] [place], [place], [address] TIBC 319 ug/dL Normal 250-450 [facility] Comment on above: Performed By: #### L 3410.9992, L503.6030, L3100.5310, L100.0500, L3300.7100, L3300.6900, L503.6550, L3300.6820, L509.6001, L501.5200, L3400.4600, L506.0400, L3300.3500, L500.4050, L3300.1750, L501.1400, L3300.1500, L803.0600, L500.4100, L801.2600, L501.9940, L501.6710, L501.9520, L501.9985, L501.23882, L506.0200, L503.0106, L3100.5060, L506.1001 ####[facility] [address] [facility] [address] [address] [place], [place], [address] UIBC 259 ug/dL Normal 228-428 [facility] Comment on above: Performed By: #### L 3410.9992, L503.6030, L3100.5310, L100.0500, L3300.7100, L3300.6900, L503.6550, L3300.6820, L509.6001, L501.5200, L3400.4600, L506.0400, L3300.3500, L500.4050, L3300.1750, L501.1400, L3300.1500, L803.0600, L500.4100, L801.2600, L501.9940, L501.6710, L501.9520, L501.9985, L501.87509, L506.0200, L503.0106, L3100.5060, L506.1001 ####[facility] [address] [facility] [place], [place], [address] L501.2276on 07-22-2024 Ionized Calcium 1.16 mmol/L Normal 1.09-1.30 [facility] Comment on above: Performed By: #### L 501.2276 #### [facility] [address] [place], [place], [id number] L509.6001on 07-22-2024 CORTISOL 12.40 ug/dL Normal 6.02-18.40 [facility] Comment on above: Performed By: #### L 3410.9992, L503.6030, L3100.5310, L100.0500, L3300.7100, L3300.6900, L503.6550, L3300.6820, L509.6001, L501.5200, L3400.4600, L506.0400, L3300.3500, L500.4050, L3300.1750, L501.1400, L3300.1500, L803.0600, L500.4100, L801.2600, L501.9940, L501.6710, L501.9520, L501.9985, L501.11480, L506.0200, L503.0106, L3100.5060, L506.1001 ####[facility] [address] [place], [address] LDL calc ser/plason 07-23-19 25 Cholesterol in LDL [Mass/Vol] 129 mg/dL [facility] Comment on above: Lkwriizbhg=018-900 m g/dL & Higher Cuxu=184 mg/dL or greater Laboratory - Chemistry and C hemistry - challengeon 07-22-2024 AST [Catalytic activity/Vol] 36 U/L <38 [facility] Lipid Profileon 07-22-2024 CHOL:HDL 4.60 Normal [facility] Comment on above: Performed By: #### L 3410.9992, L503.6030, L3100.5310, L100.0500, L3300.7100, L3300.6900, L503.6550, L3300.6820, L509.6001, L501.5200, L3400.4600, L506.0400, L3300.3500, L500.4050, L3300.1750, L501.1400, L3300.1500, L803.0600, L500.4100, L801.2600, L501.9940, L501.6710, L501.9520, L501.9985, L501.10450, L506.0200, L503.0106, L3100.5060, L506.1001 ####[facility] [address] [place], [place], [id number] Cholesterol [Mass/Vol] 198 mg/dL Normal <=200 [facility] Comment on above: Result Comment: Chol esterol level, Desirable <200 mg/dL Borderline high cholesterol 200-239 mg/dL High cholesterol >=240 mg/dL Recommendations of the NCEP Adult Treatment Panel for the following risk-cutoff thresholds for the [place] population. Performed By: #### L 3410.9992, L503.6030, L3100.5310, L100.0500, L3300.7100, L3300.6900, L503.6550, L3300.6820, L509.6001, L501.5200, L3400.4600, L506.0400, L3300.3500, L500.4050, L3300.1750, L501.1400, L3300.1500, L803.0600, L500.4100, L801.2600, L501.9940, L501.6710, L501.9520, L501.9985, L501.21479, L506.0200, L503.0106, L3100.5060, L506.1001 ####[facility] [address] [facility] [place], [address] Cholesterol in HDL [Mass/Vol] 43 mg/dL Normal [facility] Comment on above: Result Comment: Kathryn onal Cholesterol Education Program (NCEP) guidelines: <40 mg/dL: Low HDL-cholesterol (major risk factor for CHD) >= 60 mg/dL: High HDL-cholesterol (negative risk factor for CHD) HDL-cholesterol is affected by a number of factors, e.g. smoking, exercise, hormones, sex and age. Performed By: #### L 3410.9992, L503.6030, L3100.5310, L100.0500, L3300.7100, L3300.6900, L503.6550, L3300.6820, L509.6001, L501.5200, L3400.4600, L506.0400, L3300.3500, L500.4050, L3300.1750, L501.1400, L3300.1500, L803.0600, L500.4100, L801.2600, L501.9940, L501.6710, L501.9520, L501.9985, L501.55875, L506.0200, L503.0106, L3100.5060, L506.1001 ####[facility] [address] [facility] [place], [address] Cholesterol in LDL [Mass/Vol] 129 mg/dL Normal [facility] Comment on above: Result Comment: Bord askdzc=341-146 mg/dL Higher Afgw=926 mg/dL or greater Performed By: #### L 3410.9992, L503.6030, L3100.5310, L100.0500, L3300.7100, L3300.6900, L503.6550, L3300.6820, L509.6001, L501.5200, L3400.4600, L506.0400, L3300.3500, L500.4050, L3300.1750, L501.1400, L3300.1500, L803.0600, L500.4100, L801.2600, L501.9940, L501.6710, L501.9520, L501.9985, L501.62095, L506.0200, L503.0106, L3100.5060, L506.1001 ####[facility] [address] [facility] [place], [address] Cholesterol in VLDL [Mass/Vol] 26 mg/dL Normal 5-40 [facility] Comment on above: Performed By: #### L 3410.9992, L503.6030, L3100.5310, L100.0500, L3300.7100, L3300.6900, L503.6550, L3300.6820, L509.6001, L501.5200, L3400.4600, L506.0400, L3300.3500, L500.4050, L3300.1750, L501.1400, L3300.1500, L803.0600, L500.4100, L801.2600, L501.9940, L501.6710, L501.9520, L501.9985, L501.03368, L506.0200, L503.0106, L3100.5060, L506.1001 ####[facility] [address] [facility]. [place], [place], [id number] Triglyceride [Mass/Vol] 129 mg/dL Normal [facility] Comment on above: Result Comment: The drugs N-Acetylcysteine and Metamizole may falsely depress this assay. Normal range: <150 mg/dL Borderline High: 150-199 mg/dL High: 200-499 mg/dL Very High: >500 mg/dL Performed By: #### L 3410.9992, L503.6030, L3100.5310, L100.0500, L3300.7100, L3300.6900, L503.6550, L3300.6820, L509.6001, L501.5200, L3400.4600, L506.0400, L3300.3500, L500.4050, L3300.1750, L501.1400, L3300.1500, L803.0600, L500.4100, L801.2600, L501.9940, L501.6710, L501.9520, L501.9985, L501.88932, L506.0200, L503.0106, L3100.5060, L506.1001 ####[facility] [address] [facility]. [place], [place], [id number] Lipoprotein a [Mass/Vol]on 0 07-22-2024 Lipoprotein a [Moles/Vol] 22.2 nmol/L <75.0 [facility] Comment on above: Note: Values greater than or equal to 75.0 nmol/L may indicate an independent risk factor for CHD, but must be evaluated with caution when applied to non- populations due to the influence of genetic factors on Lp(a) across ethnicities. MCV (mean corpuscular volume ) determinationon 07-22-2024 MCV (RBC) [Entitic vol] 88.1 fL 80-94 [facility] Magnesiumon 07-22-2024 Magnesium [Mass/Vol] 2.2 mg/dL Normal 1.5-2.2 [facility] Comment on above: Performed By: #### L 3410.9992, L503.6030, L3100.5310, L100.0500, L3300.7100, L3300.6900, L503.6550, L3300.6820, L509.6001, L501.5200, L3400.4600, L506.0400, L3300.3500, L500.4050, L3300.1750, L501.1400, L3300.1500, L803.0600, L500.4100, L801.2600, L501.9940, L501.6710, L501.9520, L501.9985, L501.89387, L506.0200, L503.0106, L3100.5060, L506.1001 ####[facility] [address] [place], [place], [phone] Magnesium measurement (mass/ volume)on 07-22-2024 Magnesium (Unsp spec) [Mass/Vol] 2.2 mg/dL 1.5-2.2 [facility] Mean corpuscular hemoglobin (MCH) determinationon 07-22-2024 MCH (RBC) [Entitic mass] 29.5 pg 27.0-32.0 [facility] Mean corpuscular hemoglobin concentration (MCHC) determinationon 07-22-2024 MCHC (RBC) [Mass/Vol] 33.5 g/dL 32-36 [facility] Mean platelet volume determi nationon 07-22-2024 Platelet mean volume (Bld) [Entitic vol] 10.9 fL 6.2-12.0 [facility] No Panel Informationon 07-22 Unsaturated Iron Binding Capacity 259 ug/dL 228-428 [facility] PSA,Total- Diagnosticon 06-25 PSA, DIAGNOSTIC 0.34 ng/mL Normal 0.00-4.00 [facility] Comment on above: Result Comment: This test was performed using the [employer] tPSA method. Measured values of a patient??sample can vary depending on the testing procedure used. PSA values determined on patient samples by different testing procedures cannot be used interchangeably. If there is a change in PSA assays while monitoring therapy, sequential testing should be performed to confirm baseline values. Performed By: #### L 3410.9992, L503.6030, L3100.5310, L100.0500, L3300.7100, L3300.6900, L503.6550, L3300.6820, L509.6001, L501.5200, L3400.4600, L506.0400, L3300.3500, L500.4050, L3300.1750, L501.1400, L3300.1500, L803.0600, L500.4100, L801.2600, L501.9940, L501.6710, L501.9520, L501.9985, L501.46592, L506.0200, L503.0106, L3100.5060, L506.1001 ####[facility] [id number] [place], [address] Platelet counton 07-22-2024 Platelets (Bld) [#/Vol] 119 10*3/uL Low 150-450 [facility] Potassium measurement (mass/ volume)on 07-22-2024 Potassium (Unsp spec) [Mass/Vol] 4.1 mmol/L 3.3-5.1 [facility] RBC Auto (Bld) [#/Vol]on 04- 29-2025 RBC (Bld) [#/Vol] 4.61 10*6/uL 4.6-6.2 [facility] Screening total cholesterol/ high density lipoprotein (HDL) cholesterol ratioon 07-22-2024 Cholesterol.total/Ban sterol in HDL [Mass ratio] 4.60 {ratio} [facility] Serum creatinine measurement (mass/volume)on 07-22-2024 Creatinine [Mass/Vol] 0.92 mg/dL 0.70-1.20 [facility] Serum globulin measurementon 07-22-2024 Globulin (S) [Mass/Vol] 3.2 g/dL 2.2-4.2 [facility] Serum glucose measurement (m ass/volume)on 07-22-2024 Glucose [Mass/Vol] 94 mg/dL 70-99 [facility] Serum or plasma C reactive p rotein measurement (mass/volume)on 07-22-2024 CRP [Mass/Vol] 5.65 mg/L High 0.0-3.0 [facility] Serum or plasma alanine anderson otransferase (ALT) measurementon 07-22-2024 ALT [Catalytic activity/Vol] 32 U/L <47 [facility] Serum or plasma albumin donovan urement (mass/volume)on 07-22-2024 Albumin [Mass/Vol] 4.3 g/dL 3.4-4.8 [facility] Serum or plasma albumin/glob ulin mass ratioon 07-22-2024 Albumin/Globulin [Mass ratio] 1.3 {ratio} 0.9-2.4 [facility] Serum or plasma alkaline red sphatase measurementon 07-22-2024 ALP [Catalytic activity/Vol] 130 U/L High 40-129 [facility] Serum or plasma calcium donovan urement (mass/volume)on 07-22-2024 Calcium [Mass/Vol] 9.0 mg/dL 7.6-11.0 [facility] Serum or plasma cholesterol in HDL measurement (mass/volume)on 07-22-2024 Cholesterol in HDL [Mass/Vol] 43 mg/dL >40 [facility] Comment on above: National Cholesterol Education Program (NCEP) guidelines:<40 mg/dL: Low HDL-cholesterol (major risk factor for CHD)>= 60 mg/dL: High HDL-cholesterol (negative risk factor for CHD)HDL-cholesterol is affected by a number of factors, e.g. smoking, exercise, hormones, sex and age. Serum or plasma cholesterol measurement (mass/volume)on 07-22-2024 Cholesterol [Mass/Vol] 198 mg/dL <201 [facility] Comment on above: Cholesterol level, D esirable <200 mg/dLBorderline high cholesterol 200-239 mg/dLHigh cholesterol >=240 mg/dLRecommendations of the NCEP Adult Treatment Panel for the following risk-cutoff thresholds for the [place] population. Serum or plasma cortisol cody surement (mass/volume)on 07-22-2024 Cortisol [Mass/Vol] 12.40 ug/dL 6.02-18.40 [facility] Serum or plasma estradiol me asurement after follitropin dose (mass/volume)on 07-22-2024 E2 post dose follitropin [Mass/Vol] 9.9 pg/mL [facility] Comment on above: MALES ADULT MALE: 10 -40 pg/mL EVANGELIST STAGES MEAN AGE REFERENCE RANGES Stage I(>14 days and prepubertal) 7.1 years Undetectable-13 pg/mL Stage II 12.1 years Undetectable-16 pg/mL Stage III 13.6 years Undetectable-26 pg/mL Stage IV 15.1 years Undetectable-38 pg/mL Stage V 18 years 10-40 pg/mL Puberty onset (transition from Evangelist stage I to Evangelist Stage II) occurs for boys at a median age of 11.5 (+/- 2) years. For boys, there is no proven relationship between puberty onset and body weight or ethnic origin. Progression through Evangelist stages is variable. Evangelist stage V (adult) should be reached by age 18. Serum or plasma ferritin cody surement (mass/volume)on 07-22-2024 Ferritin [Mass/Vol] 269 ng/mL 37-417 [facility] Serum or plasma free testost erone measurement (mass/volume)on 07-22-2024 Testosterone Free [Mass/Vol] 3.12 ng/dL Low 5.00-21.00 [facility] Serum or plasma insulin donovan urement (mass/volume)on 07-22-2024 Insulin [Mass/Vol] 18.6 uIU/mL 2.6-24.9 [facility] Serum or plasma iron saturat ion measurement (mass fraction)on 07-22-2024 Iron saturation [Mass fraction] 19.0 % 9-55 [facility] Serum or plasma sex hormone binding globulin measurement (moles/volume)on 07-22-2024 Sex hormone binding globulin [Moles/Vol] 36.6 nmol/L 19.3-76.4 [facility] Comment on above: Performed at: [address] [id number] Director: Yg Perrin PhD, Phone: [phone] at: - [facility] [address] [id number] Director: Margarito Sanders MD, Phone: [phone] Serum or plasma thyroperoxid ase antibody assay (units/volume)on 07-22-2024 TPO Ab Qn [IU]/mL 0-34 [facility] Serum or plasma urea nitroge n measurement (mass/volume)on 07-22-2024 Urea nitrogen [Mass/Vol] 20 mg/dL High 4-19 [facility] Serum or plasma uric acid me asurement (mass/volume)on 07-22-2024 Urate [Mass/Vol] 3.9 mg/dL 3.5-7.2 [facility] Comment on above: The drugs N-Acetylcy steine and Metamizole may falsely depress this assay. Sodium levelon 07-22-2024 Sodium [Moles/Vol] 136 mmol/L 133-145 [facility] T4 Free Directon 07-22-2024 T4 FREE DIRECT 1.00 ng/dL Normal 0.76-1.46 [facility] Comment on above: Order Comment: N Performed By: #### L 3410.9992, L503.6030, L3100.5310, L100.0500, L3300.7100, L3300.6900, L503.6550, L3300.6820, L509.6001, L501.5200, L3400.4600, L506.0400, L3300.3500, L500.4050, L3300.1750, L501.1400, L3300.1500, L803.0600, L500.4100, L801.2600, L501.9940, L501.6710, L501.9520, L501.9985, L501.14944, L506.0200, L503.0106, L3100.5060, L506.1001 ####[facility] [address] [place], [place], [id number] T4 freeon 07-22-2024 Free T4 [Mass/Vol] 1.00 ng/dL 0.76-1.46 [facility] TSH DL <= 0.005 mIU/L Qnon 0 07-22-2024 TSH Qn 2.000 uIU/mL 0.300-4.200 [facility] Testosterone, totalon 2024 Testosterone [Mass/Vol] 105 ng/dL Low 264-916 [facility] Comment on above: Adult male reference interval is based on a population ofhealthy nonobese males (BMI <30) between 19 and 39 yearsold. Remberto et.al. JCEM 2017,102;7169-0691. PMID:81563878. Thyroid Stim Hormone (TSH)on 07-22-2024 TSH 2.000 uIU/mL Normal 0.300-4.200 [facility] Comment on above: Performed By: #### L 3410.9992, L503.6030, L3100.5310, L100.0500, L3300.7100, L3300.6900, L503.6550, L3300.6820, L509.6001, L501.5200, L3400.4600, L506.0400, L3300.3500, L500.4050, L3300.1750, L501.1400, L3300.1500, L803.0600, L500.4100, L801.2600, L501.9940, L501.6710, L501.9520, L501.9985, L501.91022, L506.0200, L503.0106, L3100.5060, L506.1001 ####[facility] [address] [place], [place], [phone] Total proteinon 07-22-2024 Protein [Mass/Vol] 7.5 g/dL 5.9-8.4 [facility] Triglycerides measurementon 07-22-2024 Triglyceride [Mass/Vol] 129 mg/dL <199 [facility] Comment on above: The drugs N-Acetylcy steine and Metamizole may falsely depress this assay. Normal range: <150 mg/dLBorderline High: 150-199 mg/dLHigh: 200-499 mg/dLVery High: >500 mg/dL Uric Acidon 07-22-2024 URIC 3.9 mg/dL Normal 3.5-7.2 [facility] Comment on above: Result Comment: The drugs N-Acetylcysteine and Metamizole may falsely depress this assay. Performed By: #### L 3410.9992, L503.6030, L3100.5310, L100.0500, L3300.7100, L3300.6900, L503.6550, L3300.6820, L509.6001, L501.5200, L3400.4600, L506.0400, L3300.3500, L500.4050, L3300.1750, L501.1400, L3300.1500, L803.0600, L500.4100, L801.2600, L501.9940, L501.6710, L501.9520, L501.9985, L501.56549, L506.0200, L503.0106, L3100.5060, L506.1001 ####[facility] [address] [place], [place], [id number] Vitamin B12on 07-22-2024 Cobalamin (Vitamin B12) [Mass/Vol] 674 pg/mL Normal 180-914 [facility] Comment on above: Performed By: #### L 3410.9992, L503.6030, L3100.5310, L100.0500, L3300.7100, L3300.6900, L503.6550, L3300.6820, L509.6001, L501.5200, L3400.4600, L506.0400, L3300.3500, L500.4050, L3300.1750, L501.1400, L3300.1500, L803.0600, L500.4100, L801.2600, L501.9940, L501.6710, L501.9520, L501.9985, L501.04649, L506.0200, L503.0106, L3100.5060, L506.1001 ####[facility] [address] [facility]. [place], [place], [id number] Vitamin B12 ser/plason 07-22 Cobalamin (Vitamin B12) [Mass/Vol] 674 pg/mL 180-914 [facility] Vitamin D,25 Hydroxyon 07-22 Vitamin D 25-OH 35.1 ng/mL Normal 30-100 [facility] Comment on above: Result Comment: Raquel min D Status Deficiency: <20 ng/mL (50nmol/L) Insufficiency: 20-30 ng/mL (50-75 nmol/L) Sufficiency: 30-100 ng/mL (75-250 nmol/L) Toxicity: >100 ng/mL (>250 nmol/L) Performed By: #### L 3410.9992, L503.6030, L3100.5310, L100.0500, L3300.7100, L3300.6900, L503.6550, L3300.6820, L509.6001, L501.5200, L3400.4600, L506.0400, L3300.3500, L500.4050, L3300.1750, L501.1400, L3300.1500, L803.0600, L500.4100, L801.2600, L501.9940, L501.6710, L501.9520, L501.9985, L501.01778, L506.0200, L503.0106, L3100.5060, L506.1001 ####[facility] [address] [facility]. [place], [place], [phone] White blood cell (WBC) count on 07-22-2024 WBC (Bld) [#/Vol] 6.1 10*3/uL 4.4-11.0 [facility] Inital Evaluation (1) - PTon 04-22-2024 Inital Evaluation (1) - PT [facility] [address] [place] [address] / REHABILITATION SERVICES INITIAL EVALUATION MR#: [id number] Acct: [id number] Name: MELANIE NAVARRO Rep #: [id number] : 1960 63 From: Tod Khan DPT Referring Dr.: Dr. Devika Arcos MD Status: RE G RCR Insurance: [employer] EXCHANGE PLAN [facility] PACKAGE PLAN Patient's Visit Information Visit Information Visit Information: MELANIE NAVARRO is a 63 year old M referred to Physical Therapy by Dr. Devika Arcos MD with a diagnosis of R shoulder tendinitis. Date of Evaluation: 04/14/24 Physical Therapist: Tod Khan DPT Visit Plan Frequency: 2x /Week Duration: 6 Weeks Plan: 1) inferior mobs with flexion and abduction, AAROM 2) RTC, scapular strengthening 3) DFM biceps may us US initially for pain control Subjective Subjective: Pt. is here today for his initial evaluation with diagnosis of R shoulder tendinitis. Pt. reports having increased R shoulder pain for a few months now. Pt. reports that his arm bothers him reaching, lifting, sleeping and ADLs. Pt. reports no N/T in either UE. Pt. reports not doing any exercises yet. No imaging as well. Pt. reaching increased pain with reaching behind and with dressing. Pt. feels like his arm is hard to lift at times, mostly due to pain. Pt. reports weakness in his arm as well, but is more so secondary to pain. He is hopeful to reduce symptoms in order to get back to all recreational activities without limitations. Pain R shoulder: Pain Intensity (Out of 10): 2 Pain Intensity Range: 0 and 6 Objective Objective: POSTURE: Pt. has slight foward head posture. pt. has rounded shoulders bilaterally. PALPATION: pt. has increased tenderness at long head of biceps and anterior shoulder. Pain with palpation in groove. NEURO: normal throughout BUEs. ROM: PROM: L shoulder full motion no issues. AROM: L shoulder full motion. R shoulder: flexion 110deg increase NW, abd 90deg increase NW, functional ER C2, functional IR L5. Pt. has increased pain as limiting factor with all active motions. MMT: L shoulder: flexion 5/5, abd 5/5, ext 5/5, ER 5-/5, IR 5/5. R shoulder: flexion 4/5 increase NW, abd 4/5 increase NW, ER 5-/5 NE, IR 5/5 NE. Special Tests R Shoulder Empty Can - SS: Negative R Shoulder Belly Press - SupScap: Negative R Shoulder Neer - Impingement: Positive R Shoulder Muñoz Zac - Impingement: Positive R Shoulder Speeds Test - Labrum/Biceps: Positive Balance/Special Test Scores Quick DASH Score: 25.0000 Goals Goal 1:: LTG: Pt. to be I with HEP. Goal Time Frame: 4-6 Weeks Goal 2:: STG: Pt. to sleep throughout the night without increase in symptoms. Goal Time Frame: 2-4 Weeks Goal 3:: LTG: Pt. to have full R shoulder AROM without increase in symptoms. Goal Time Frame: 4-6 Weeks Goal 4:: LTG: Pt. to have 5/5 strength throughout R shoulder and scapular musculature. Goal Time Frame: 4-6 Weeks Goal 5:: LTG: Pt. to complete all ADLs without increase in symptoms. Goal Time Frame: 4-6 Weeks Rehabilitation Potential Physical Therapy Diagnosis: Pt. has has signs and symptoms consistent with R shoulder tendinitis. Pt. has marked hypomobility, weakness, increased pain. Pt. would benefit from PT to address the above limitations progressing back to all functional activities. Rehabilitation Potential: Good Anticipated Interventions Patient/Client Instruction: Educate patient on: Condition, Plan of Care, Risk Factors and Benefits of Fitness Program For the Purpose of:: To foster healthy habits, To improve decision making, To facilitate caregiver knowledge, To improve self management, To prevent re-injury and To improve ability to perform tasks related to life management Therapeutic Exercise to Include: Strength training, Power training, Body mechanics, Postural training, Passive ROM and Active ROM For the Purpose of:: To decrease pain, To increase ROM, To improve nutrient delivery to tissue, To increase oxygenation perfusion, To improve muscle performance and motor function, To improve ability to perform ADL's, To increase tolerance to activity/condition/posit ion, To improve performance and independence with ADL's, To decrease soft tissue restriction and To increase flexibility/ROM Manual Therapy Techniques to Include: Mobilization and Passive ROM For the Purpose of:: To decrease pain, To decrease swelling/inflammation, To increase ROM and To improve nutrient delivery to tissue Ultrasound (thermal/non thermal): Yes For the Purpose of:: To decrease pain, To decrease swelling/inflammation, To increase ROM, To improve nutrient delivery to tissue, To increase oxygenation perfusion and To improve muscle performance and motor function Text: Thank you for the opportunity to evaluate your patient. For Medicare and Medicare HMO plans, please r (more content not included)... Normal [facility] Cardiology Visit Reporton Cardiology Visit Report [facility] [address] [place] [address] OFFICE VISIT Date of Service: 04/09/24 MR#: [id number] Acct: [id number] Name: MELANIE NAVARRO Rep #: [id number] : 1960 Provider: BARRY matos Age/Sex: 63/M Location: [facility] Status: Signed HPI HPI History of Present Illness Details: This is a 63-year-old white male who presents today for outpatient cardiovascular follow-up for history of CAD, status post RCA thrombosis with subsequent PTCA/stent (2008 at [facility]), hyperlipidemia, hypertension, thrombocytopenia, IBAN with CPAP therapy, and Parkinson's disorder (Dr. Dempsey). His last outpatient cardiovascular visit was on 11-13-2018. He states based upon the COVID- 19 pandemic he had placed his continued outpatient cardiovascular evaluation on hold. He denies chest, arm, jaw, or neck discomfort. He denies palpitations. He states occasional bilateral lower extremity edema when he is standing for long periods. He denies claudication. He denies shortness of breath with activity, shortness of breath at rest, orthopnea, or PND. He states his sensation which he feels like he forgot to breathe. He denies chronic cough. He denies significant, sudden weight gain. He denies lightheadedness, dizziness, near-syncope, or syncope. He denies blood in urine, blood in stool, or epistaxis. He denies fever with chills. He denies myalgia. He states fatigue. His exercise level has remained stable. Intake Vital Signs 06/13/22 10:25 04/09/24 15:35 Height 5 ft 8 in 5 ft 8 in Weight: 228 lb BMI 34.7 BP 163/90 H Blood Pressure Location Lt brachial Position Sitting Respiration 18 Pulse 66 Pulse Source NIBP Intake Visit Reasons: OVERDUE FOR [employer] Required: No Is patient in pain?: No Allergies No Known Allergies Allergy (Verified 04/09/24 15:45) Medications ???Medication ???Instructions ???Recorded ???Confirmed ???Type losartan 100 1 tab PO DAILY #90 tabs 12/19/22 04/09/24 Rx mg-hydrochlorothiazide 25 mg tablet amlodipine 10 mg tablet 10 mg PO QDAY 04/09/24 04/09/24 History carbidopa 25 mg-levodopa 100 mg 1 tab PO TID 04/09/24 04/09/24 History tablet carbidopa ER 50 mg-levodopa 200 mg 1 tab PO QPM 04/09/24 04/09/24 History tablet,extended release Ejection fraction %: 55 PFSH Medical History Parkinsons disease Melanoma in situ of back Essential hypertension Hypertension IBAN (obstructive sleep apnea) Hyperlipidemia Atherosclerotic heart disease of [place] coronary artery without angina pectoris Surgical History History of left knee surgery History of right knee surgery Postsurgical percutaneous transluminal coronary angioplasty (PTCA) status ( 08/2008) Presence of stent in coronary artery ( 08/2008) Family History Father CAD (coronary artery disease) Myocardial infarction, Onset Age: 42 Sister Hypertension Mother Colon cancer Hypertension Social History (Updated 04/09/24 @ 15:54 by Anya Vuong) Smoking Status: Never smoker alcohol intake: current alcohol intake frequency: a few times a month substance use type: does not use caffeine: Yes Type: coffee Number of servings: 3 what type of physical activity do you participate in: walking frequency: 3-4 times per week duration: 30-45 minutes/day ROS Const Const: Positive for fatigue and difficulty sleeping (Relates to parkinsons. Falls asleep but can't fall back to sleep. ); Negative for weakness Eyes Eyes: Negative for change in vision ENT ENT: Negative for dizziness or balance problems Cardio Chest Pain: No Palpitations: No Edema: Bilateral (Occasionally when on his feet all day. Otherwise denies swelling) Muscle aches with walking: None Resp Respiratory: Positive for other (Occasionally feels like he forgot to breath); Negative for SOB with activity, SOB at rest or SOB orthopnea SOB lying down GI GI: Negative nausea or heartburn : Negative for hematuria or frequent nighttime urination/ nocturia Musc Musc: Positive for joint pain (knee); Negative for balance problems Skin Skin: Negative non-healing lesions or rash Neuro Neuro: Negative for dizziness, lightheadedness, near syncope, syncope or weakness Endo Endo: Positive for fatigue Allergy Allergy/Immunology: Negative for rash Cardiology Exam Const Appearance: cooperative, healthy appearing, comfortable and no acute distress Nutritional Appearance: well nourished and obese Orientation: alert, awake and oriented x3 Head Head: normal to inspection Ears: hearing grossly normal bilaterally Nose: external nose normal Face and Sinus: face symmetric Mouth: moist m (more content not included)... Normal [facility] 02-19-2024 [facility] Telephone (LENKA) -------- MELANIE NAVARRO ([id number]) 1960 M Date Time Provider Department 02/19/24 JEREMIAS DEMPSEY JR During your visit today, we recorded the following information about you: Christie Hare RN 02/19/2024 11:22 AM Signed Tatiana Breaux from Dr. Bahena's office calls and states that office received request for compliance report on patient's CPAP. Tatiana reports that patient has an older Icon CPAP machine. They would need the chip from the machine to get compliance report. Patient was set up with machine in 2014. JAMISON Colbert Samaria, LPN 02/20/2024 9:16 AM Signed Called patient, advised patient of message below. Patient verbalized understanding. Patient states he will do that. Richie Vu LPN February 20, 2024 9:16 AM Allergies As of Date: 02/19/2024 (No Known Allergies) Date Reviewed: 02/18/2024 Reviewed by: Jeremias Dempsey Jr., MD - Fully Assessed Reason for Visit: CPAP Compliance [Other] Prescriptions as of 02/20/2024 - carbidopa-levodopa (SINEMET) 25-100 mg per tablet Take 1 tablet at 5AM, 1 tablet at 10AM and 1 tablet at 3PM. - carbidopa-levodopa CR (SINEMET CR) 50-200 mg per tablet Take 1 tablet at 8PM nightly. - cholecalciferol, vitamin D3, (VITAMIN D3 ORAL) Take by mouth. - cyanocobalamin, vitamin B-12, (VITAMIN B-12 ORAL) Take by mouth. - amLODIPine (NORVASC) 10 mg tablet Take 10 mg by mouth daily at bedtime. - losartan-hydroCHLOROthia zide (HYZAAR) 100-25 mg per tablet Take 1 tablet by mouth once daily. Problem List As Of Date 02/19/2024 Noted Resolved Cerebrovascular accident (HCC) [I63.9] 09/15/2021 History of myocardial infarction [I25.2] 09/06/2016 Hyperlipidemia [E78.5] 09/15/2021 Hypertension [I10] 09/15/2021 Parkinson's disease (HCC) [G20.A1] 09/15/2021 Thrombocytopenia (HCC) [D69.6] 09/15/2021 IBAN (obstructive sleep apnea) [G47.33] 05/10/2022 Encounter Status:Closed by RICHIE VU on 02/20/24 [facility] Rita 02-18-2024 CNOV Office Visit (NEMOWS ) -------- MELANIE NAVARRO ([id number]) 1960 M Date Time Provider Department 02/18/24 3:20 PM JEREMIAS DEMPSEY JR During your visit today, we recorded the following information about you: Pulse Blood pressure Weight 59/minute 175/97 102.5 kg Richie Vu LPN 02/18/2024 3:08 PM Signed C/o parkinson progressing. Would like medication to relieve tremor today. Tremor keeps patient from sleeping. Richie Vu LPN February 18, 2024 3:05 PM Jeremias Dempsey Jr., MD 02/18/2024 4:08 PM Signed ESTABLISHED PATIENT VISIT CHIEF COMPLAINT: Follow Up HISTORY OF PRESENT ILLNESS: Melanie Navarro is a 63 year old male, BMI 33.37 kg/m2 with a PMH significant for and per last office note with Balbir Choe CNP on 06/08/22: R25.1 Tremor (primary encounter diagnosis) Comment: Patient previously seen for RUE tremor with exam findings suggestive of PD. Previous exam noting resting tremor, decreased RUE swing, and increased tone of RUE. Improvement in exam after initiation of Requip XL, however, RUE tremor still present intermittently. Requip dose was further increased to 6mg daily (pt prefers once daily dosing). Today, he reports tremor still present at rest. Exam unremarkable with exception of intermittent RUE resting tremor as well as tremor present with ambulation. As tremor is persistent and pt reporting continued fatigue as well (see concern below) will place consult to movement disorder clinic to evaluate symptoms and provide further recommendations for medication and treatment. G47.33 IBAN (obstructive sleep apnea) R53.83 Other fatigue Comment: Pt prescribed PAP by outside provider. Download not available at time of previous appointment. Download obtained in interim, however, appears information is from 10/2021. Appears PAP was used 03/24 days. However, recent data unavailable and pt reports compliance with device. Note, lab work from [facility] reviewed (B12, TSH, TIBC/iron/ferritin, Vit D, cortisol, A1C WNL and low free testosterone). He still notes increased fatigue and brain fog at time of OV today. Discussed possible contributing factors including IBAN and poor sleep, increased stress/anxiety, and medications used to treat PD. Uncertain to what degree any or all of the aforementioned factors are contributing to sx. Have asked that he follow up with his sleep medicine provider as well as his PCP. R51.9 Frequent headaches I10 Hypertension, unspecified type Comment: Previously reporting frequent headaches with headache occurring roughly four days per week. Located to either R or L hemicrania and associated with phonophobia. No photophobia or visual changes. BP elevated at time of last OV and discussed follow up with PCP for BP management. Today, headaches have improved and mostly only present when not using PAP. However, BP remains elevated and again discussed follow up with PCP to address. Will defer medication for APONTE at this time given improvement. H93.19 Tinnitus, unspecified laterality Comment: As noted at previous appointment: history of tinnitus with past workup by ENT roughly 8-10 years ago. Symptoms remain bothersome and as medications would have limited effect on symptoms referral was placed to tinnitus management clinic. He was previously unable to schedule and new consult entered at time of appt today. Pt has been following with Dr. Benitez over the past year. Now transitioning back to al. I have no PAP data download for review. Through Dr. Page. Patient concerned resting tremor getting worse - RUE. States also feels like the RUE is getting stiff. No falls. Issues getting out of a chair or out of furniture. More difficulties with daily activities such as climbing up stairs and feels legs are just not as strong. Pt did not feel Requip XL helped. Takes while to get going in the AM. No change in voice. +Constipation. +RBD type symptoms - rare but history of it. No issues falling asleep, but when wakes has difficulties going back to sleep because tremor starts. Using PAP nightly. No issues with PAP. No headaches. Tinnitus unchanged. BP elevalted. REVIEW OF SYSTEMS GENERAL:No weight loss, malaise or fevers. HEENT:Negative for frequent or significant headaches, No changes in hearing or vision, no nose bleeds or other nasal problems NECK:Negative for lumps, goiter, pain and significant neck swelling RESPIRATORY: Negative for cough, wheezing or shortness of breath. CARDIOVASCULAR: Negative for chest pain, leg swelling or palpitations. GASTROINTESTINAL: Negative for abdominal discomfort, blood in stools or black stools or change in bowel habits GENITOURINARY: No history of dysuria, frequency or incontinence MUSCULOSKELETAL: Negative for joint pain or swelling, back pain or muscle pain. NEUROLOGIC:Negative for focal numbness or weakness, headaches and dizziness or (more content not included)... Normal [facility] Inital Evaluation (1) - PTon 11-28-2023 Inital Evaluation (1) - PT [facility] [id number] [place] [address] / REHABILITATION SERVICES INITIAL EVALUATION MR#: [id number] Acct: [id number] Name: MELANIE NAVARRO Rep #: [id number] : 1960 63 From: [place] ROGERS Referring Dr.: Dr. Devika Arcos MD Status: RE G R Insurance: [employer]URANCE Patient's Visit Information Visit Information Visit Information: MELANIE NAVARRO is a 63 year old M referred to Physical Therapy by Dr. Devika Arcos MD with a diagnosis of PD. Date of Evaluation: 11/28/23 Physical Therapist: SUE Alcantar Visit Plan Frequency: 1x/Week Duration: 6 Weeks Plan: Next visit... 2 min walk test, TUG, 30 sec sit to stand. Review H W gym routine and give couple of postural exercises and standing dual task opp arm and leg 1X/ week for 6 weeks for learning of indep HEP and gym routine Subjective Subjective: Pt was Dx with PD during COV[facility]. He has been doing the PD class for about 3 weeks. He has lots of issues. He has PD and the rigidity factor is there and hard to get down the steps first thing in the morning. He had a HD L4/L5 and his L foot is numb for last 6 years. He has issues with R shoulder and R knee. He still works at [employer] in the [employer] and on his feet all the time. He started with PD on the R side at rest. He is not taking meds for PD at this time. He has an appt in Nov with a neurologist. His R shoulder not as much mobility. He can not lay on his R hip. He walks a lot at work. He walked a few miles this morning. His daughter notices that his limping. Stairs: He feels weaker in his Quads. He alternates and holds onto the railing. He keeps trying to balance to put his socks. He has trouble if he sits too long it is hard to get not stiff and hard to get out of a civic. He is able to get up off the floor and pushes up on things. He notices that his mental side he has hard to concentrate. Anxiety is also part of things. He does trip on his L foot at times. He does not sleep well... He wakes up at 1:00am and not able to get back to sleep. He does use a CPAP. Pain L ankle pain: Pain Intensity (Out of 10): 1 Comment: numbess Objective Objective: Gait: walks with a normal gait pattern other than decrease stance time on the L LE Pt is able to walk on heels and toes without issue LE MMT: 4/5 hip flex, knee ext and flex, Bridge 3/5 normal ROM FGA: 28/30 Standing opp arm and leg: able to do 10 on each side in a row once got started and same with BW Pt is able to get out of a chair without the use of his UE's LTR: tight B sides Supine wand flexion (R arm pains at approx 120 degrees) Balance/Special Test Scores Functional Gait Assessment Score: 28 % Disability: 6.6700 Lower Extremity Functional Score: 65 Goals Goal 1:: I HEP Goal Time Frame: 2-4 Weeks Goal 2:: I H W routine Goal Time Frame: 2-4 Weeks Goal 3:: Improve walking with head turns without veering or LOB Rehabilitation Potential Rehabilitation Potential: Good Anticipated Interventions Patient/Client Instruction: Educate patient on: Condition and Plan of Care For the Purpose of:: To improve muscle performance and motor function, To improve ability to perform ADL's, To increase tolerance to activity/condition/posit ion, To improve performance and independence with ADL's, To decrease level of supervision to perform tasks, To improve ability of physical actions for home/community/work/leis ure, To improve gait and locomotor functions, To improve health of tissue, To decrease soft tissue restriction, To increase flexibility/ROM, To improve endurance, To improve balance and To improve safety with gait Therapeutic Exercise to Include: Strength training, Endurance training, Balance training, Body mechanics, Postural training, Flexibilty training, Gait and locomotor training, Neuromotor development, Active ROM and Dynamic Lumbar Stabilization For the Purpose of:: To decrease pain, To increase ROM, To improve nutrient delivery to tissue, To increase oxygenation perfusion, To improve muscle performance and motor function, To improve ability to perform ADL's, To increase tolerance to activity/condition/posit ion, To improve performance and independence with ADL's, To decrease level of supervision to perform tasks, To improve ability of physical actions for home/community/work/leis ure, To improve gait and locomotor functions, To improve health of tissue, To decrease soft tissue restriction, To increase flexibility/ROM, To improve endurance and To improve balance Functional Training to Include: Gait training For the Purpose of:: To improve gait and locomotor functions and To assume or resume ADL's Text: Thank you for the opportunity to evaluate your patient. For Medicare and Medicare HMO plans, please review the plan of care and (more content not included)... Normal [facility] Absolute lymphocyte countOrd ered By: Devika Arcos on 09-29-2022 Lymphocytes Auto (Unsp spec) [#/Vol] 1.09 10*3/uL 0.83-4.51 [facility] Basophil percentageOrdered B y: Devika Arcos on 09-29-2022 Basophils/100 WBC (Bld) 0.6 % 0-1 [facility] Eosinophils/100 WBC (Bld) 1.8 % 0-5 [facility] Neutrophils (Bld) [#/Vol] 6.3 10*3/uL 2.0-7.7 [facility] Neutrophils/100 WBC (Bld) 73.3 % 47-70 [facility] WBC (Bld) [#/Vol] 8.5 10*3/uL 4.4-11.0 [facility] r [facility] Blood erythrocytes count (nu mber/volume)Ordered By: Devika Arcos on 09-29-2022 RBC (Bld) [#/Vol] 4.31 10*6/uL 4.6-6.2 [facility] er [facility] Blood hemoglobin measurement (mass/volume)Ordered By: Devika Arcos on 09-29-2022 Hemoglobin (Bld) [Mass/Vol] 12.6 g/dL 13.0-16.5 [facility] Blood lymphocytes/100 leukoc ytesOrdered By: Devika Arcos on 09-29-2022 Lymphocytes/100 WBC (Bld) 12.8 % 19-41 [facility] Blood monocytes/100 leukocyt esOrdered By: Devika Arcos on 09-29-2022 Monocytes/100 WBC (Bld) 10.7 % 0-10 [facility] Blood platelet mean volumeOr dered By: Devika Arcos on 09-29-2022 Platelet mean volume (Bld) [Entitic vol] 10.6 fL 6.2-12.0 [facility] Determination of erythrocyte mean corpuscular volume (MCV)Ordered By: Devika Arcos on 09-29-2022 MCV (RBC) [Entitic vol] 90.5 fL 80-94 [facility] Hematocrit Auto (Bld) [Volum e fraction]Ordered By: Devika Arcos on 09-29-2022 Hematocrit (Bld) [Volume fraction] 39.0 % 40-54 [facility] - Hematology and Cell countsOrdered By: Devika Arcos on 09-29-2022 Erythrocyte distribution width (RBC) [Entitic vol] 43.9 fL 35.1-43.9 [facility] Erythrocyte distribution width (RBC) [Ratio] 13.2 % 11.6-14.6 [facility] Immature granulocytes/100 WBC (Bld) 0.800 % 0.0-0.9 [facility] Comment on above: IG% - Immature Granu locytes (promyelocytes, myelocytes and metamyelocytes) > 1% indicates that a LEFT SHIFT is Present. MCH (RBC) [Entitic mass] 29.2 pg 27.0-32.0 [facility] Nucleated RBC/100 WBC (Bld) [Ratio] 0 % 0-5 [facility] MCHC Auto (RBC) [Mass/Vol]Or dered By: Devika Arcos on 09-29-2022 MCHC (RBC) [Mass/Vol] 32.3 g/dL 32-36 [facility] Platelets bldOrdered By: Devika Arcos on 09-29-2022 Platelets (Bld) [#/Vol] 273 10*3/uL 150-450 [facility] Absolute lymphocyte countOrd ered By: Eliz Cristobal on 06-20-2022 Lymphocytes Auto (Unsp spec) [#/Vol] 1.13 10*3/uL 0.83-4.51 [facility] Basophil percentageOrdered B y: Eliz Cristobal on 06-20-2022 Basophils/100 WBC (Bld) 0.3 % 0-1 [facility] Eosinophils/100 WBC (Bld) 3.0 % 0-5 [facility] Neutrophils (Bld) [#/Vol] 6.6 10*3/uL 2.0-7.7 [facility] Neutrophils/100 WBC (Bld) 71.0 % 47-70 [facility] WBC (Bld) [#/Vol] 9.3 10*3/uL 4.4-11.0 [facility] Blood erythrocytes count (nu mber/volume)Ordered By: Eliz Cristobal on 06-20-2022 RBC (Bld) [#/Vol] 4.51 10*6/uL 4.6-6.2 [facility] Blood hemoglobin measurement (mass/volume)Ordered By: Eliz Cristobal on 06-20-2022 Hemoglobin (Bld) [Mass/Vol] 13.3 g/dL 13.0-16.5 [facility] Blood lymphocytes/100 leukoc ytesOrdered By: Eliz Cristobal on 06-20-2022 Lymphocytes/100 WBC (Bld) 12.2 % 19-41 [facility] Blood monocytes/100 leukocyt esOrdered By: Eliz Cristobal on 06-20-2022 Monocytes/100 WBC (Bld) 11.5 % 0-10 [facility] Blood platelet mean volumeOr dered By: Eliz Cristobal on 06-20-2022 Platelet mean volume (Bld) [Entitic vol] 9.7 fL 6.2-12.0 [facility] Determination of erythrocyte mean corpuscular volume (MCV)Ordered By: Eliz Cristobal on 06-20-2022 MCV (RBC) [Entitic vol] 88.5 fL 80-94 [facility] Hematocrit Auto (Bld) [Volum e fraction]Ordered By: Eliz Cristobal on 06-20-2022 Hematocrit (Bld) [Volume fraction] 39.9 % 40-54 [facility] - Hematology and Cell countsOrdered By: Eliz Cristobal on 06-20-2022 Erythrocyte distribution width (RBC) [Entitic vol] 44.1 fL 35.1-43.9 [facility] Erythrocyte distribution width (RBC) [Ratio] 13.7 % 11.6-14.6 [facility] Immature granulocytes/100 WBC (Bld) 2.000 % 0.0-0.9 [facility] Comment on above: IG% - Immature Granu locytes (promyelocytes, myelocytes and metamyelocytes) > 1% indicates that a LEFT SHIFT is Present. MCH (RBC) [Entitic mass] 29.5 pg 27.0-32.0 [facility] Nucleated RBC/100 WBC (Bld) [Ratio] 0 % 0-5 [facility] MCHC Auto (RBC) [Mass/Vol]Or dered By: Eliz Cristobal on 06-20-2022 MCHC (RBC) [Mass/Vol] 33.3 g/dL 32-36 [facility] Platelets bldOrdered By: Rolando Cristobal on 06-20-2022 Platelets (Bld) [#/Vol] 184 10*3/uL 150-450 [facility] HIV 1 and HIV-2 antibody ass ay with HIV-1 p24 antigen detectionOrdered By: Eliz Cristobal on 06-13-2022 HIV 1+2 Ab+HIV1 p24 Ag IA Ql Non-Reactive Nonreactive [facility] No Panel InformationOrdered By: Eliz Cristobal on 06-13-2022 Hepatitis B Surface Antibody Non-Reactive . [facility] Comment on above: Non Reactive: Incons istent with immunity, less than 10 mIU/mL Reactive: Consistent with immunity, greater than 9.9 mIU/mL Hepatitis C Antibody Comment Comment . [facility] Comment on above: Not infected with HC V unless early or acute infection issuspected (which may be delayed in an immunocompromisedindividual), or other evidence exists to indicate HCVinfection.Performed at: [facility] [employer] [id number] Director: Yg Perrin PhD, Phone: [phone] Serum hepatitis B virus core antibody detectionOrdered By: Eliz Cristobal on 06-13-2022 HBV core Ab Ql (S) Negative Negative [facility] Serum or plasma hepatitis B virus surface antigen detection by immunoassayOrdered By: Eliz Cristobal on 06-13-2022 HBV surface Ag IA Ql Negative Negative [facility] Blood platelet adequacy dete ction by light microscopyOrdered By: Eliz Cristobal on 06-05-2022 Platelets LM Ql (Bld) MKD DEC ADEQ [facility] Review by pathologistOrdered By: Eliz Cristobal on 06-05-2022 Pathologist review Lopez (Unsp spec) [Interp] Reviewed [facility] Comment on above: Previous reported re sult: Khushi shi Edited by: RGOOD on 06/05/22:1411Neutrophilic left shift.Marked Thrombocytopenia.Clinical correlation necessary.Tyree Lopez M.D. 06/05/22 AMENDED REPORT 06/05/22 1411 PATH REV previously reported as: Khushi shi Basophil percentageOrdered B y: Eliz Cristobal on 05-29-2022 Chloride [Moles/Vol] 102 mmol/L 98-107 [facility] Glucose [Mass/Vol] 99 mg/dL 74-106 [facility] Potassium [Moles/Vol] 3.9 mmol/L 3.5-5.1 [facility] Sodium [Moles/Vol] 137 mmol/L 136-145 [facility] Blood blasts/100 leukocytesO rdered By: Eliz Cristobal on 05-29-2022 Blasts/100 WBC (Bld) 4 % 0-0 [facility] Blood lymphocytes/100 leukoc ytesOrdered By: Eliz Cristobal on 05-29-2022 Lymphocytes/100 WBC (Bld) 4 % 19-41 [facility] Blood metamyelocytes/100 angel kocytesOrdered By: Eliz Cristobal on 05-29-2022 Metamyelocytes/100 WBC (Bld) [employer] [facility] Blood monocytes/100 leukocyt esOrdered By: Eliz Cristobal on 05-29-2022 Monocytes/100 WBC (Bld) 5 % 0-10 [facility] Blood segmented neutrophils/ 100 leukocytesOrdered By: Eliz Cristobal on 05-29-2022 Segmented neutrophils/100 WBC (Bld) 84 % 47-70 [facility] - Chemistry and C hemistry - challengeOrdered By: Eliz Cristobal on 05-29-2022 CO2 [Moles/Vol] 27.0 mmol/L 21.0-32.0 [facility] Urea nitrogen/Creatinine [Mass ratio] 24.8 mg/mg 10-20 [facility] - Hematology and Cell countsOrdered By: Eliz Cristobal on 05-29-2022 Myelocytes/100 WBC (Bld) 3 % 0-0 [facility] No Panel InformationOrdered By: Eliz Cristobal on 05-29-2022 Estimated Creatinine Clearance Calc 76.39 ml/min [facility] Estimated GFR (MDRD) Amer 101 mL/min >60 [facility] Comment on above: GFR Calc Estimated GFR (MDRD) Non-Af Amer 84 mL/min >60 [facility] Comment on above: Non- GFR Calc RBC morphologyOrdered By: Dandre Cristobal on 05-29-2022 RBC morphology finding Nom (Bld) NORM C+C NORMAL NORM C&C [facility] Serum or plasma calcium donovan urement (mass/volume)Ordered By: Eliz Cristobal on 05-29-2022 Calcium [Mass/Vol] 8.7 mg/dL 8.5-10.1 [facility] Serum or plasma creatinine m easurement (mass/volume)Ordered By: Eliz Cristobal on 05-29-2022 Creatinine [Mass/Vol] 0.97 mg/dL 0.70-1.30 [facility] Comment on above: The validity of the calculated GFR & GFRAA in patients over 70 years has not been determined. Clinical correlation is essential. Serum or plasma urea nitroge n measurement (mass/volume)Ordered By: Eliz Cristobal on 05-29-2022 Urea nitrogen [Mass/Vol] 24 mg/dL 7-18 [facility] Thin prep Papanicolaou smear with manual screeningOrdered By: Eliz Cristobal on 05-29-2022 Thin prep Papanicolaou smear with manual screening 8 5-15 [facility] Total cell countOrdered By: Eliz Cristobal on 05-29-2022 Cells counted Molgen (Bld/Tiss) [#] 100 MANUAL DIFF [facility] Blood manual differential co mment interpretation (narrative result)Ordered By: Eliz Cristobal on 05-24-2022 Manual differential comment Lopez (Bld) [Interp] SCANNED [facility] Blood platelet morphology de termination (nominal result)Ordered By: Eliz Cristobal on 05-24-2022 Platelet morphology finding Nom (Bld) LARGE [facility] Absolute lymphocyte counton 09-20-2021 Lymphocytes Auto (Unsp spec) [#/Vol] 1.05 10*3/uL 0.83-4.51 [facility] Work Phone: Basophil percentageon 2021 Basophils/100 WBC (Bld) 0.3 % 0-1 [facility] Work Phone: Eosinophils/100 WBC (Bld) 0.5 % 0-5 [facility] Work Phone: Neutrophils (Bld) [#/Vol] 10.7 10*3/uL 2.0-7.7 [facility] Work Phone: Neutrophils/100 WBC (Bld) 83.8 % 47-70 [facility] Work Phone: WBC (Bld) [#/Vol] 12.7 10*3/uL 4.4-11.0 [facility] Work Phone: Blood erythrocytes count (nu mber/volume)on 09-20-2021 RBC (Bld) [#/Vol] 4.39 10*6/uL 4.6-6.2 [facility] Work Phone: Blood hemoglobin measurement (mass/volume)on 09-20-2021 Hemoglobin (Bld) [Mass/Vol] 12.8 g/dL 13.0-16.5 [facility] Work Phone: Blood lymphocytes/100 leukoc yteson 09-20-2021 Lymphocytes/100 WBC (Bld) 8.3 % 19-41 [facility] Work Phone: Blood monocytes/100 leukocyt eson 09-20-2021 Monocytes/100 WBC (Bld) 6.5 % 0-10 [facility] Work Phone: Blood platelet mean volumeon 09-20-2021 Platelet mean volume (Bld) [Entitic vol] 10.3 fL 6.2-12.0 [facility] Work Phone: Determination of erythrocyte mean corpuscular volume (MCV)on 09-20-2021 MCV (RBC) [Entitic vol] 86.1 fL 80-94 [facility] Work Phone: Hematocrit Auto (Bld) [Volum e fraction]on 09-20-2021 Hematocrit (Bld) [Volume fraction] 37.8 % 40-54 [facility] Work Phone: Laboratory - Hematology and Cell countson 09-20-2021 Erythrocyte distribution width (RBC) [Entitic vol] 42.6 fL 35.1-43.9 [facility] Work Phone: Erythrocyte distribution width (RBC) [Ratio] 13.4 % 11.6-14.6 [facility] Work Phone: Immature granulocytes/100 WBC (Bld) 0.600 % 0.0-0.9 [facility] Work Phone: Comment on above: IG% - Immature Granu locytes (promyelocytes, myelocytes and metamyelocytes) > 1% indicates that a LEFT SHIFT is Present. MCH (RBC) [Entitic mass] 29.2 pg 27.0-32.0 [facility] Work Phone: Nucleated RBC/100 WBC (Bld) [Ratio] 0 % 0-5 [facility] Work Phone: MCHC Auto (RBC) [Mass/Vol]on 09-20-2021 MCHC (RBC) [Mass/Vol] 33.9 g/dL 32-36 [facility] Work Phone: No Panel Informationon 09-20 Thyroid Stimulating Hormone (TSH) 1.30 uIU/mL 0.358-3.74 [facility] Work Phone: Platelets bldon 09-20-2021 Platelets (Bld) [#/Vol] 230 10*3/uL 150-450 [facility] Work Phone: Serum heterophile antibody d etectionon 09-20-2021 Heterophile Ab Ql (S) Negative Negative [facility] Work Phone: Absolute lymphocyte counton 05-10-2021 Lymphocytes Auto (Unsp spec) [#/Vol] 0.91 10*3/uL 0.83-4.51 [facility] Work Phone: [phone] Basophil percentageon 2021 Basophils/100 WBC (Bld) 0.8 % 0-1 [facility] Work Phone: Bilirubin [Mass/Vol] 0.60 mg/dL 0.20-1.00 [facility] Work Phone: Comment on above: For patients on eltr ombopag therapy, use of Dimension [place] TBIL is not recommended. Chloride [Moles/Vol] 105 mmol/L 98-107 [facility] Work Phone: [phone] Cholesterol [Mass/Vol] 191 mg/dL <200 [facility] Work Phone: [phone] Comment on above: <200 mg/dL Desirable 200-240 mg/dL Borderline >240 mg/dL High Risk Eosinophils/100 WBC (Bld) 1.1 % 0-5 [facility] Work Phone: Glucose [Mass/Vol] 85 mg/dL 74-106 [facility] Work Phone: Neutrophils (Bld) [#/Vol] 6.0 10*3/uL 2.0-7.7 [facility] Work Phone: [phone] Neutrophils/100 WBC (Bld) 78.4 % 47-70 [facility] Work Phone: [phone] Potassium [Moles/Vol] 3.8 mmol/L 3.5-5.1 [facility] Work Phone: [phone] Protein [Mass/Vol] 8.2 g/dL 6.4-8.2 [facility] Work Phone: Sodium [Moles/Vol] 138 mmol/L 136-145 [facility] Work Phone: Testosterone [Mass/Vol] 146 ng/dL [facility] Work Phone: Comment on above: Adult male reference interval is based on a population ofhealthy nonobese males (BMI <30) between 19 and 39 yearsold. rosalino Sr.al. JCEM 2017,102;[id number]. PMID:[id number]. Triglyceride [Mass/Vol] 64 mg/dL [facility] Work Phone: Comment on above: The drugs N-Acetylcy steine and Metamizole may falsely depress this assay.Serum Triglycerides Reference Interval Normal <150 mg/dL Borderline high 150 - 199 mg/dL High 200 - 499 mg/dL Very High > or = 500 mg/dL WBC (Bld) [#/Vol] 7.7 10*3/uL 4.4-11.0 [facility] Work Phone: Blood erythrocytes count (nu mber/volume)on 05-10-2021 RBC (Bld) [#/Vol] 4.91 10*6/uL 4.6-6.2 [facility] Work Phone: RBC (Bld) [#/Vol] 4.94 10*6/uL [facility] Work Phone: Blood hemoglobin measurement (mass/volume)on 05-10-2021 Hemoglobin (Bld) [Mass/Vol] 14.5 g/dL 13.0-16.5 [facility] Work Phone: Blood lymphocytes/100 leukoc yteson 05-10-2021 Lymphocytes/100 WBC (Bld) 12.0 % 19-41 [facility] Work Phone: Blood monocytes/100 leukocyt eson 05-10-2021 Monocytes/100 WBC (Bld) 7.2 % 0-10 [facility] Work Phone: Blood platelet mean volumeon 05-10-2021 Platelet mean volume (Bld) [Entitic vol] 10.5 fL 6.2-12.0 [facility] Work Phone: Determination of erythrocyte mean corpuscular volume (MCV)on 05-10-2021 MCV (RBC) [Entitic vol] 87.8 fL 80-94 [facility] Work Phone: Erythrocyte rhgtvuv-1-vyroiu ate dehydrogenase (enzymatic activity/mass)on 05-10-2021 G6PD (RBC) [Catalytic activity/Mass] 224 [facility] Work Phone: Comment on above: Result Units: U/10E1 2 RBCWhen decreased, G-6-PD, Quant. values are associated withacute hemolytic anemia when deficient individuals areexposed to oxidative stress, such as with certainmedications (e.g., primaquine), infection, or ingestion offava beans. Caution: In patients with acute hemolysis(e.g., abnormally low RBC values), testing for G-6-PD maybe falsely normal because older erythrocytes with a higherenzyme deficiency have been hemolyzed. Young erythrocytesand reticulocytes have normal or near-normal enzymeactivity. Normal values of G-6-PD may be measured forseveral weeks following a hemolytic event. Free testosterone percentage on 05-10-2021 Testosterone Free/Testosterone.total [Mass fraction] 3.03 % [facility] Work Phone: Hematocrit Auto (Bld) [Volum e fraction]on 05-10-2021 Hematocrit (Bld) [Volume fraction] 43.1 % 40-54 [facility] Work Phone: Iron measurement (mass/mass) on 05-10-2021 Iron (Unsp spec) [Mass/Mass] 73 ug/dL 65-175 [facility] Work Phone: Laboratory - Chemistry and C hemistry - challengeon 05-10-2021 ALP [Catalytic activity/Vol] 106 U/L 45-117 [facility] Work Phone: ALT [Catalytic activity/Vol] 54 U/L 16-61 [facility] Work Phone: CO2 [Moles/Vol] 26.0 mmol/L 21.0-32.0 [facility] Work Phone: Cobalamin (Vitamin B12) [Mass/Vol] 725 pg/mL 211-911 [facility] Work Phone: Free T4 [Mass/Vol] 0.98 ng/dL 0.76-1.46 [facility] Work [facility]: Globulin (S) [Mass/Vol] 4.2 g/dL 2.2-4.2 [facility] Work Phone: [phone] Lipoprotein a [Moles/Vol] 19.6 nmol/L [facility] Work Phone: Comment on above: Note: Values greater than or equal to 75.0 nmol/L may indicate an independent risk factor for CHD, but must be evaluated with caution when applied to non- populations due to the influence of genetic factors on Lp(a) across ethnicities. Magnesium [Mass/Vol] 2.3 mg/dL 1.6-2.6 [facility] Work Phone: Urea nitrogen/Creatinine [Mass ratio] 20.9 mg/mg 10-20 [facility] Work Phone: Laboratory - Hematology and Cell countson 05-10-2021 Erythrocyte distribution width (RBC) [Entitic vol] 42.7 fL 35.1-43.9 [facility] Work Phone: Erythrocyte distribution width (RBC) [Ratio] 13.2 % 11.6-14.6 [facility] Work Phone: [phone] Immature granulocytes/100 WBC (Bld) 0.500 % 0.0-0.9 [facility] Work Phone: Comment on above: IG% - Immature Granu locytes (promyelocytes, myelocytes and metamyelocytes) > 1% indicates that a LEFT SHIFT is Present. MCH (RBC) [Entitic mass] 29.5 pg 27.0-32.0 [facility] Work Phone: Nucleated RBC/100 WBC (Bld) [Ratio] 0 % 0-5 [facility] Work Phone: [phone] MCHC Auto (RBC) [Mass/Vol]on 05-10-2021 MCHC (RBC) [Mass/Vol] 33.6 g/dL 32-36 [facility] Work Phone: No Panel Informationon 05-10 C-Reactive Protein High Sensitivity 5.15 mg/L [facility] Work Phone: Comment on above: Low Relative Risk of CVD <1.0 mg/L Average Relative Risk of CVD 1.0 - 3.0 mg/L High Relative Risk of CVD >3.0 mg/L Dehydroepiandrosterone Sulfate 144.0 ug/dL [facility] Work Phone: Estimated GFR (MDRD) Amer 124 mL/min >60 [facility] Work Phone: Comment on above: GFR Calc Estimated GFR (MDRD) Non-Af Amer 103 mL/min >60 [facility] Work Phone: Comment on above: Non- GFR Calc Free Triiodothyronine (T3) pg/dL 2.6 pg/mL 2.18-3.98 [facility] Work Phone: Homocysteine 9.1 umol/L 3.2-10.7 [facility] Work Phone: Insulin Level 13.5 mU/L 2.6-37.6 [facility] Work Phone: Comment on above: Please Note: INSULIN METHOD & REFERENCE RANGE CHANGEEffective 04/05/2017. Ionized Calcium 5.2 mg/dL [facility] Work Phone: Miscellaneous Test See comment [facility] Work Phone: Comment on above: TEST RESULT LIMITSMa gnesium, RBC 6.6 mg/dL 4.2-6.8 Verified by repeat analysis TESTING PERFORMED AT [facility]. ORIGINAL REPORT ON FILE IN LAB CONTAINS ADDITIONAL TEST SITE INFORMATION. MTHFR Thermolabile Variant DNA Anal Comment [facility] Work Phone: Comment on above: Result:c.665C>T (p. [id number]), legacy name: [id number] - NotDetected c.1286A>C (p. [id number]), legacy name: [id number] -Not Detected Interpretation:This result is not associated with an increased risk forhyperhomocysteinemia. See Additional Clinical Informationand Comments.Additional Clinical Information:Hyperhomocysteinemia is multifactorial involving genetic,clinical, and environmental risk factors. Reduced enzymeactivity of methylenetetrahydrofolate reductase (MTHFR) victor manuel genetic risk factor for hyperhomocysteinemia,particularly when serum folate levels are low. There aretwo common variants in the MTHFR gene that can decreaseenzyme activity; c.665C>T (p. [id number]), legacy [id number], and c.1286A>C (p. [id number]), legacy name [id number].These variants do not independently increase risk ofconditions related to hyperhomocysteinemia in the absenceof elevated homocysteine levels. Measurement of totalplasma homocysteine is recommended. Patients should sharetheir MTHFR genotype with physicians who are makingdecisions regarding chemotherapy treatments that depend onfolate, such as methotrexate.Guidelines do not recommend genotyping of these two MTHFRvariants in the evaluation of venous thrombosis orobstetric risk due to limited evidence of clinical utility(PMID: 07653179). Comments:Genetic Coordinators are available for health careproviders to discuss results at [phone] Details:Variants Analyzed: c.665C>T (p. [id number]), legacy name:[id number] and c.1286A>C (p. [id number]), legacy name: [id number]/Limitations:DNA analysis of the MTHFR gene was performed by PCRamplification followed by restriction enzyme analysis. Thediagnostic sensitivity is >99%. Results must be combinedwith clinical information for the most accurateinterpretation. Molecular-based testing is highlyaccurate, but as in any laboratory test, diagnosticerrors may occur. False positive or false negative resultsmay occur for reasons that include genetic variants, bloodtransfusions, bone marrow transplantation, somatic ortissue-specific mosaicism, mislabeled samples, or erroneousrepresentation of family relationships.This test was developed and its performancecharacteristics determined by [employer]. It has not beencleared or approved by the Food and Drug Administration.References:Diana SE, Dawson CJ, Aston HV. [facility] PracticeGuideline: lack of evidence for MTHFR polymorphism testing.[place] Med. 2012;15(2):153-6. doi: 10.1038/gim.2012.165.Epub 2012Mar 28. PMID: 14115498.[employer]'Committee on Practice Bulletins-Obstetrics. [facility] [place] PracticeBulletin [place]. 197: Inherited Thrombophilias in .Obstet Gynecol. 2018 Sep;132(1):e18-e34. doi:10.1097/AOG.[id number]. Erratum in: Obstet Gynecol.2018 Dec;132(4):1069. PMID: 60534748.Gamaliel Esquivel, PhD, Naun Lopez, PhD, Steve Douglas, PhD, Jose G Gutierrez, PhD, [facility]. Gely Parish, PhD, Sp Florian, PhD, [facility] Prostate Specific Antigen Total 0.42 ng/mL 0.0-4.0 [facility] Work Phone: Comment on above: This test was perfor med using the TPSA assay method for theUcsf Medical Centervzaar chemistry system. Values obtained with differentassay methods cannot be used interchangably.When changing PSA assays in the course of monitoring apatient, additional sequential testing should be carriedout to confirm baseline values. Reverse Triiodothyronine (T3) 19.1 ng/dL [facility] Work Phone: Comment on above: This test was develo ped and its performance characteristicsdetermined by [employer]. It has not been cleared orapproved by the Food and Drug Administration. Somatomedin-C 84 ng/mL [facility] Work Phone: Thyroglobulin Antibody < 1.0 IU/mL [facility] Work Phone: Comment on above: Thyroglobulin Antibo dy measured by Mike CoulterMethodology Thyroglobulin Level 11.4 ng/mL [facility] Work Phone: Comment on above: According to the [facility] [employer] of Clinical Biochemistry,the reference interval for Thyroglobulin (TG) should berelated to euthyroid patients and not for patients whounderwent thyroidectomy. TG reference intervals for thesepatients depend on the residual mass of the thyroid tissueleft after surgery. Establishing a post-operative baselineis recommended. The assay limit of quantitation is 0.1ng/mLThyroglobulin measured by Mike Montrose [employer] Thyroid Stimulating Hormone (TSH) 1.16 uIU/mL 0.358-3.74 [facility] Work Phone: Total Iron Binding Capacity 373 ug/dL 250-450 [facility] Work Phone: Vitamin D 25-Hydroxy 53.3 ng/mL [facility] Work Phone: Comment on above: Vitamin D 25(OH) Sta tus Range Deficiency <20 ng/mL (50nmol/L) Insufficiency 20 - 30 ng/mL (50 - 75 nmol/L) Sufficiency 30 - 100 ng/mL (75 - 250 nmol/L) Toxicity >100 ng/mL (>250 nmol/L) Platelets bldon 05-10-2021 Platelets (Bld) [#/Vol] 207 10*3/uL 150-450 [facility] Work Phone: Serum or plasma albumin donovan urement (mass/volume)on 05-10-2021 Albumin [Mass/Vol] 4.0 g/dL 3.2-5.0 [facility] Work Phone: Serum or plasma albumin/glob ulin mass ratioon 05-10-2021 Albumin/Globulin [Mass ratio] 1.0 {ratio} 0.9-2.4 [facility] Work Phone: Serum or plasma calcium donovan urement (mass/volume)on 05-10-2021 Calcium [Mass/Vol] 9.0 mg/dL 8.5-10.1 [facility] Work Phone: Serum or plasma cholesterol in HDL measurement (mass/volume)on 05-10-2021 Cholesterol in HDL [Mass/Vol] 63 mg/dL [facility] Work Phone: Comment on above: The drugs N-Acetylcy steine and Metamizole may falsely depress this assay. Reference Range HDL <40 mg/dL Low HDL Cholesterol HDL >or= 60 mg/dL High HDL Cholesterol Serum or plasma cholesterol in VLDL measurement (mass/volume)on 05-10-2021 Cholesterol in VLDL [Mass/Vol] 13 mg/dL 5-40 [facility] Work Phone: Serum or plasma cortisol cody surement (mass/volume)on 05-10-2021 Cortisol [Mass/Vol] 7.10 ug/dL 3.44-22.45 [facility] Work Phone: Comment on above: Adult (AM) 5.27 - 22 .45 ug/dL Adult (PM) 3.44 - 16.76 ug/dLPlease note revised CORTISOL reference range effective 2019. Serum or plasma creatinine m easurement (mass/volume)on 05-10-2021 Creatinine [Mass/Vol] 0.81 mg/dL 0.70-1.30 [facility] Work Phone: Comment on above: The validity of the calculated GFR & GFRAA in patients over 70 years has not been determined. Clinical correlation is essential. Serum or plasma estradiol (E 2) measurement (mass/volume)on 05-10-2021 E2 [Mass/Vol] 20.9 pg/mL [facility] Work Phone: Comment on above: NORMAL REFERENCE RAN GES FEMALE FOLLICULAR 21.4 - 164.8 pg/mL MID-CYCLE PEAK 49.9 - 367.2 pg/mL LUTEAL 40.2 - 259.0 pg/mL POST-MENOPAUSAL ON MHT <11.0 - 462.1 pg/mL NOT ON MHT <11.0 - 58.3 pg/mL MALE <11.0 - 52.5 pg/mL NOTE:[employer] HAS CONFIRMED THE DRUG FULVETRANT (FASLODEX) MAY CAUSE FALSELY ELEVATED ESTRADIOL RESULTS WHEN USING THIS TEST METHOD. IF PATIENT IS TAKING FULVESTRANT AN ALTERNATIVE METHOD SHOULD BE USED TO DETERMINE ESTRADIOL CONCENTRATION. Serum or plasma ferritin cody surement (mass/volume)on 05-10-2021 Ferritin [Mass/Vol] 202 ng/mL 26-388 [facility] Work Phone: Serum or plasma folate measu rement (mass/volume)on 05-10-2021 Folate [Mass/Vol] 14.90 ng/mL 3.1-55.4 [facility] Work Phone: Serum or plasma low density lipoprotein (LDL) cholesterol measurement (mass/volume)on 05-10-2021 Cholesterol in LDL [Mass/Vol] 115 mg/dL 0-130 [facility] Work Phone: Serum or plasma progesterone measurement (mass/volume)on 05-10-2021 Progesterone [Mass/Vol] ng/mL See Comment [facility] Work Phone: Comment on above: Progesterone Referen ce Table: UNITS Female: Follicular 0.15 - 1.40 ng/mL Luteal 3.34 - 25.56 ng/mL Mid-luteal 4.44 - 28.03 ng/mL Postmenopausal 0.0 - 0.73 ng/mL : 1st Trimester 11.22 - 90.00 ng/mL 2nd Trimester 25.55 - 89.40 ng/mL 3rd Trimester 48.40 -422.50 ng/mL Serum or plasma sex hormone binding globulin measurement (moles/volume)on 05-10-2021 Sex hormone binding globulin [Moles/Vol] 38.9 nmol/L [facility] Work Phone: Comment on above: Performed at: [facility] chris [address] [id number] Director: Yg Perrin PhD, Phone: [phone] at: [facility] [address] [id number] Director: Margarito Sanders MD, Phone: [phone] at: TG - [facility] [id number] [place], [place] [id number] Director: America Ledezma [facility], Phone: [phone] Serum or plasma testosterone free measurement (mass/volume)on 05-10-2021 Testosterone Free [Mass/Vol] 4.42 ng/dL [facility] Work Phone: Serum or plasma thyroperoxid ase antibody assay (units/volume)on 05-10-2021 TPO Ab Qn [IU]/mL [facility] Work Phone: Serum or plasma urea nitroge n measurement (mass/volume)on 05-10-2021 Urea nitrogen [Mass/Vol] 17 mg/dL 7-18 [facility] Work Phone: Serum or plasma uric acid me asurement (mass/volume)on 05-10-2021 Urate [Mass/Vol] 3.7 mg/dL 3.5-7.2 [facility] Work Phone: Comment on above: The drugs N-Acetylcy steine and Metamizole may falsely depress this assay. Thin prep Papanicolaou smear with manual screeningon 05-10-2021 Thin prep Papanicolaou smear with manual screening 30 U/L 15-37 [facility] Work Phone: Thin prep Papanicolaou smear with manual screening 7 5-15 [facility] Work Phone: Thin prep Papanicolaou smear with manual screening Not Reportable [facility] Work Phone: Whole blood hemoglobin A1c/t otal hemoglobin ratio (mass fraction)on 05-10-2021 HbA1c (Bld) [Mass fraction] 5.3 % 3.8-5.6 [facility] Work Phone: Comment on above: Normal < 5.7 % Predi abetic 5.7 - 6.4 % Diabetic >or= 6.5 % Please note range changes. Erythrocyte distribution wid th standard deviationon 08-12-2018 Erythrocyte distribution width (RBC) [Entitic vol] 43.8 fL 35.1-43.9 [facility] Laboratory - Hematology and Cell countson 08-12-2018 Erythrocyte distribution width (RBC) [Ratio] 13.6 % 11.6-14.6 [facility] Eosinophils/100 WBC Auto (Bl d)on 07-15-2018 Eosinophils/100 WBC (Bld) 1 % 0-5 [facility] - Microbiology an d Antimicrobial susceptibilityon 07-15-2018 HBV core IgM IA Ql Negative Negative [facility] HCV Ab IB Ql (S) <0.1 s/co ratio 0.0-0.9 [facility] No Panel Informationon 07-15 Hepatitis Be Antibody Negative Negative [facility] Hepatitis Be Antigen Negative Negative [facility] Hepatitis C Comment Comment . [facility] Comment on above: Non reactive HCV ant ibody screen is consistent with no HCVinfection, unless recent infection is suspected or otherevidence exists to indicate HCV infection. Miscellaneous Test See comment [facility] Comment on above: TEST RESULT LIMITSHe licobacter pylori, IgM AbH pylori, IgM Abs <9.0 units 0.0 - 8.9 Negative <9.0 Equivocal 9.0 - 11.0 Positive >11.0Disclaimer: This test was developed and its performance characteristicsdetermined by [employer]. It has not been cleared or approvedby the Food and Drug Administration. TESTING PERFORMED AT [facility]. ORIGINAL REPORT ON FILE IN LAB CONTAINS ADDITIONAL TEST SITE INFORMATION. Serum Helicobacter pylori Ig G antibody assay (units/volume)on 07-15-2018 H. pylori IgG Qn (S) 0.50 0.00-0.79 [facility] Comment on above: Result Units: Index Value Negative <0.80 Equivocal 0.80 - 0.89 Positive >0.89Performed at: [facility] [id number] [place], [place] [id number] Director: Yg Perrin PhD, Phone: [phone] Serum or plasma IgG measurem ent (mass/volume)on 07-15-2018 IgG [Mass/Vol] 1008 mg/dL 700-1600 [facility] Serum or plasma IgM measurem ent (mass/volume)on 07-15-2018 IgM [Mass/Vol] 60 mg/dL 20-172 [facility] Comment on above: Performed at: - [facility] [id number] [place], [place] [id number] Director: Yg Perrin PhD, Phone: [phone] Office Visiton 09-07-2016 Dietary management education, guidance, and counseling (procedure) yes Invalid Interpretation Code [facility] Work Phone: [phone] Documentation of current medications (procedure) Done Invalid Interpretation Code [facility] Work Phone: [phone] Fall risk assessment No [facility] Work Phone: [phone] Protein mass conc Done [facility] Work Phone: [phone] Tobacco smoking status MDIS Never smoker [facility] Work Phone: [phone] Tobacco use [facility] Never smoker Invalid Interpretation Code [facility] Work Phone: [phone] Clinical Lists Update: Prelo level glass vial filler 09-05-2016 Tobacco smoking status NHIS Never [facility] Work Phone: Tobacco smoking status MDIS Never smoker [facility] Work Phone: Clinical Lists Update: Prelo level glass vial filler 11-24-2015 Cholesterol in HDL mass conc 48 mg/dL [facility] Work Phone: [phone] Cholesterol in LDL mass conc 114 mg/dL [facility] Work Phone: [phone] Cholesterol mass conc 190 mg/dL [facility] Work Phone: [phone] Triglyceride mass conc 140 mg/dL [facility] Work Phone: [phone] Vital Signs Date Time Vital Sign Value Performing Clinician Facility 10-27-2024 20:51-0400 Body temperature 98 [degF] Dr. Devika Arcos MD Work Phone: [facility] 10-27-2024 20:51-0400 Diastolic blood pressure 91 mm[Hg] Dr. Devika Arcos MD Work Phone: [facility] 10-27-2024 20:51-0400 Heart rate 56 /min Dr. Devika Arcos MD Work Phone: [facility] 10-27-2024 20:51-0400 Respiratory rate 15 /min Dr. Devika Arcos MD Work Phone: [facility] 10-27-2024 20:51-0400 SaO2% (BldA) [Mass fraction] 99 % Dr. Devika Arcos MD Work Phone: [facility] 10-27-2024 20:51-0400 Systolic blood pressure 186 mm[Hg] Dr. Devika Arcos MD Work Phone: [facility] 10-27-2024 14:58-0400 Body height 172.[address] Devika Arcos MD Work Phone: [facility] 10-27-2024 14:58-0400 Body mass index (BMI) [Ratio] 34.3 kg/m2 Dr. Devika Arcos MD Work Phone: [facility] 10-27-2024 14:58-0400 Body weight 102.[address] Devika Arcos MD Work Phone: [facility] 08-08-2024 15:18-0400 Body mass index (BMI) [Ratio] 33.05 kg/m2 Jeremias Dempsey Jr., MD Work Phone: [facility] 08-08-2024 15:18-0400 Body weight 101.52 kg Jeremias Dempsey Jr., MD Work Phone: [facility] 08-08-2024 15:18-0400 Diastolic blood pressure 90 mm[Hg] Jeremias Dempsey Jr., MD Work Phone: [facility] Comment on above: pt did not take BP meds this AM 08-08-2024 15:18-0400 Heart rate 60 /min Jeremias Dempsey Jr., MD Work Phone: [facility] 08-08-2024 15:18-0400 Respiratory rate 18 /min Jeremias Dempsey Jr., MD Work Phone: [facility] 08-08-2024 15:18-0400 SaO2% (BldA) [Mass fraction] 98 % Jeremias Dempsey Jr., MD Work Phone: [facility] 08-08-2024 15:18-0400 Systolic blood pressure 170 mm[Hg] Jeremias Dempsey Jr., MD Work Phone: [facility] Comment on above: pt did not take BP meds this AM 02-18-2024 16:02-0500 Diastolic blood pressure 97 mm[Hg] Jeremias Dempsey Jr., MD Work Phone: [facility] Comment on above: pt did not take bp meds nor has any wate r today 02-18-2024 16:02-0500 Systolic blood pressure 175 mm[Hg] Jeremias Dempsey Jr., MD Work Phone: [facility] Comment on above: pt did not take bp meds nor has any wate r today 02-18-2024 15:06-0500 Body mass index (BMI) [Ratio] 33.37 kg/m2 Jeremias Dempsey Jr., MD Work Phone: [facility] 02-18-2024 15:06-0500 Body weight 102.51 kg Jeremias Dempsey Jr., MD Work Phone: [facility] 02-18-2024 15:06-0500 Heart rate 59 /min Jeremias Dempsey Jr., MD Work Phone: [facility] 02-18-2024 15:06-0500 SaO2% (BldA) [Mass fraction] 100 % Jeremias Dempsey Jr., MD Work Phone: [facility] 11-10-2022 15:20-0400 Body height 175.3 cm Jimmy Benitez MD Work Phone: [facility] 11-10-2022 15:20-0400 Body weight 108.86 kg Jimmy Benitez MD Work Phone: [facility] 11-10-2022 15:20-0400 Diastolic blood pressure 67 mm[Hg] Jimmy Benitez MD Work Phone: [facility] 11-10-2022 15:20-0400 Heart rate 73 /min Jimmy Benitez MD Work Phone: [facility] 11-10-2022 15:20-0400 SaO2% (BldA) [Mass fraction] 95 % Jimmy Benitez MD Work Phone: [facility] 11-10-2022 15:20-0400 Systolic blood pressure 121 mm[Hg] Jimmy Benitez MD Work Phone: [facility] 07-10-2022 13:51-0400 Body temperature 97.39 [degF] Jimmy Benitez MD Work Phone: [facility] 07-10-2022 13:51-0400 Body weight 112.58 kg Jimmy Benitez MD Work Phone: [facility] 07-10-2022 13:51-0400 Diastolic blood pressure 84 mm[Hg] Jimmy Benitez MD Work Phone: [facility] 07-10-2022 13:51-0400 Heart rate 68 /min Jimmy Benitez MD Work Phone: [facility] 07-10-2022 13:51-0400 SaO2% (BldA) [Mass fraction] 96 % Jimmy Benitez MD Work Phone: [facility] 07-10-2022 13:51-0400 Systolic blood pressure 145 mm[Hg] Jimmy Benitez MD Work Phone: [facility] 06-13-2022 10:25-0400 Body height 172.[address] Devika Arcos Work Phone: [facility] 06-13-2022 10:25-0400 Body mass index (BMI) [Ratio] 36.1 kg/m2 Dr. Devika Arcos Work Phone: [facility] 06-13-2022 10:25-0400 Body temperature 97.1 [degF] Dr. Devika Arcos Work Phone: [facility] 06-13-2022 10:25-0400 Body weight 108.[address] Devika Arcos Work Phone: [facility] 06-13-2022 10:25-0400 Diastolic blood pressure 84 mm[Hg] Dr. Devika Arcos Work Phone: [facility] 06-13-2022 10:25-0400 Heart rate 66 /min Dr. Devika Arcos Work Phone: [facility] 06-13-2022 10:25-0400 Respiratory rate 16 /min Dr. Devika Arcos Work Phone: [facility] 06-13-2022 10:25-0400 SaO2% (BldA) [Mass fraction] 96 % Dr. Devika Arcos Work Phone: [facility] 06-13-2022 10:25-0400 Systolic blood pressure 135 mm[Hg] Dr. Devika Arcos Work Phone: [facility] 06-08-2022 16:28-0400 Body temperature 97.7 [degF] Bailee Dahlhausen MINE ANALYST.CLINICAL QUALITY ASSURANCE ASSOCIATE Work Phone: [facility] 06-08-2022 16:28-0400 Body weight 107.96 kg Bailee Dahlhausen MINE ANALYST.CLINICAL QUALITY ASSURANCE ASSOCIATE Work Phone: [facility] 06-08-2022 16:28-0400 Diastolic blood pressure 88 mm[Hg] Bailee Dahlhausen MINE ANALYST.CLINICAL QUALITY ASSURANCE ASSOCIATE Work Phone: [facility] 06-08-2022 16:28-0400 Heart rate 64 /min Bailee Dahlhausen MINE ANALYST.CLINICAL QUALITY ASSURANCE ASSOCIATE Work Phone: [facility] 06-08-2022 16:28-0400 Respiratory rate 16 /min Bailee Dahlhausen MINE ANALYST.CLINICAL QUALITY ASSURANCE ASSOCIATE Work Phone: [facility] 06-08-2022 16:28-0400 SaO2% (BldA) [Mass fraction] 97 % Bailee Dahlhausen MINE ANALYST.CLINICAL QUALITY ASSURANCE ASSOCIATE Work Phone: [facility] 06-08-2022 16:28-0400 Systolic blood pressure 154 mm[Hg] Bailee Dahlhausen MINE ANALYST.CLINICAL QUALITY ASSURANCE ASSOCIATE Work Phone: [facility] 12-29-2021 16:22-0400 Body temperature 97.59 [degF] Bailee Dahlhausen MINE ANALYST.CLINICAL QUALITY ASSURANCE ASSOCIATE Work Phone: [facility] 12-29-2021 16:22-0400 Body weight 102.97 kg Bailee Dahlhausen MINE ANALYST.CLINICAL QUALITY ASSURANCE ASSOCIATE Work Phone: [facility] 12-29-2021 16:22-0400 Diastolic blood pressure 94 mm[Hg] Bailee Dahlhausen MINE ANALYST.CLINICAL QUALITY ASSURANCE ASSOCIATE Work Phone: [facility] 12-29-2021 16:22-0400 Heart rate 60 /min Bailee Dahlhausen MINE ANALYST.CLINICAL QUALITY ASSURANCE ASSOCIATE Work Phone: [facility] 12-29-2021 16:22-0400 Respiratory rate 16 /min Bailee Dahlhausen MINE ANALYST.CLINICAL QUALITY ASSURANCE ASSOCIATE Work Phone: [facility] 12-29-2021 16:22-0400 SaO2% (BldA) [Mass fraction] 96 % Bailee Dahlhausen MINE ANALYST.CLINICAL QUALITY ASSURANCE ASSOCIATE Work Phone: [facility] 12-29-2021 16:22-0400 Systolic blood pressure 176 mm[Hg] Bailee Dahlhausen MINE ANALYST.CLINICAL QUALITY ASSURANCE ASSOCIATE Work Phone: [facility] 09-15-2021 11:28-0400 Body height 175.3 cm Virginia AMAYA-C Work Phone: [facility] 09-15-2021 11:28-0400 Body temperature 97.81 [degF] Virginia Renteria PA-C Work Phone: [facility] 09-15-2021 11:28-0400 Body weight 102.51 kg Virginia Wormald PA-C Work Phone: [facility] 09-15-2021 11:28-0400 Diastolic blood pressure 90 mm[Hg] Virginia Wormald PA-C Work Phone: [facility] 09-15-2021 11:28-0400 Heart rate 68 /min Virginia Wormald PA-C Work Phone: [facility] 09-15-2021 11:28-0400 Respiratory rate 16 /min Virginia Wormald PA-C Work Phone: [facility] 09-15-2021 11:28-0400 SaO2% (BldA) [Mass fraction] 97 % Virginia Wormald PA-C Work Phone: [facility] 09-15-2021 11:28-0400 Systolic blood pressure 156 mm[Hg] Virginia Wormald PA-C Work Phone: [facility] 09-08-2021 13:48-0400 Body temperature 98.2 [degF] Bailee Dahlhausen MINE ANALYST.CLINICAL QUALITY ASSURANCE ASSOCIATE Work Phone: [facility] 09-08-2021 13:48-0400 Body weight 104.33 kg Bailee Dahlhausen MINE ANALYST.CLINICAL QUALITY ASSURANCE ASSOCIATE Work Phone: [facility] 09-08-2021 13:48-0400 Diastolic blood pressure 82 mm[Hg] Bailee Dahlhausen MINE ANALYST.CLINICAL QUALITY ASSURANCE ASSOCIATE Work Phone: [facility] 09-08-2021 13:48-0400 Heart rate 67 /min Bailee Dahlhausen MINE ANALYST.CLINICAL QUALITY ASSURANCE ASSOCIATE Work Phone: [facility] 09-08-2021 13:48-0400 Respiratory rate 18 /min Bailee Dahlhausen MINE ANALYST.CLINICAL QUALITY ASSURANCE ASSOCIATE Work Phone: [facility] 09-08-2021 13:48-0400 SaO2% (BldA) [Mass fraction] 96 % Bailee Dahlhausen MINE ANALYST.CLINICAL QUALITY ASSURANCE ASSOCIATE Work Phone: [facility] 09-08-2021 13:48-0400 Systolic blood pressure 138 mm[Hg] Baileejohnny Cohenmarilinnathanalfreod MINE ANALYST.CLINICAL QUALITY ASSURANCE ASSOCIATE Work Phone: [facility] 09-08-2021 10:36-0400 Body height 173.[address] Devika Arcos Work Phone: [facility] Work Phone: 09-08-2021 10:36-0400 Body mass index (BMI) [Ratio] 35.5 kg/m2 Dr. Devika Arcos Work Phone: [facility] Work Phone: 09-08-2021 10:36-0400 Body weight 107.[address] Devika Arcos Work Phone: [facility] Work Phone: 09-08-2021 10:36-0400 Diastolic blood pressure 80 mm[Hg] Dr. Devika Arcos Work Phone: [facility] Work Phone: 09-08-2021 10:36-0400 Heart rate 64 /min Dr. Devika Arcos Work Phone: [facility] Work Phone: 09-08-2021 10:36-0400 Respiratory rate 16 /min Dr. Devika Arcos Work Phone: [facility] Work Phone: 09-08-2021 10:36-0400 Systolic blood pressure 172 mm[Hg] Dr. Devika Arcos Work Phone: [facility] Work Phone: 07-08-2021 10:34-0400 Body temperature 97.81 [degF] Jeremias Dempsey Jr., MD Work Phone: [facility] 07-08-2021 10:34-0400 Body weight 101.61 kg Jeremias Dempsey Jr., MD Work Phone: [facility] 07-08-2021 10:34-0400 Diastolic blood pressure 82 mm[Hg] Jeremias Dempsey Jr., MD Work Phone: [facility] 07-08-2021 10:34-0400 Heart rate 59 /min Jeremias Dempsey Jr., MD Work Phone: [facility] 07-08-2021 10:34-0400 Respiratory rate 18 /min Jeremias Dempsey Jr., MD Work Phone: [facility] 07-08-2021 10:34-0400 SaO2% (BldA) [Mass fraction] 96 % Jeremias Dempsey Jr., MD Work Phone: [facility] 07-08-2021 10:34-0400 Systolic blood pressure 142 mm[Hg] Jeremias Dempsey Jr., MD Work Phone: [facility] 02-04-2019 10:48-0500 Body mass index (BMI) [Ratio] 33.5 kg/m2 Dr. Devika Arcos Work Phone: [facility] 02-04-2019 10:48-0500 Body temperature 98 [degF] Dr. Devika Arcos Work Phone: [facility] 02-04-2019 10:48-0500 Body weight 101.[address] Devika Arcos Work Phone: [facility] 02-04-2019 10:48-0500 Diastolic blood pressure 96 mm[Hg] Dr. Devika Arcos Work Phone: [facility] 02-04-2019 10:48-0500 Heart rate 59 /min Dr. Devika Arcos Work Phone: [facility] 02-04-2019 10:48-0500 Respiratory rate 16 /min Dr. Devika Arcos Work Phone: [facility] 02-04-2019 10:48-0500 SaO2% (BldA) [Mass fraction] 97 % Dr. Devika Arcos Work Phone: [facility] 02-04-2019 10:48-0500 Systolic blood pressure 144 mm[Hg] Dr. Devika Arcos Work Phone: [facility] 09-07-2016 15:13-0400 BMI (Body Mass Index) 31.89 kg/m2 [facility] Work Phone: 09-07-2016 15:13-0400 BP Diastolic 88 mm[Hg] Vanessa [facility] Work Phone: 09-07-2016 15:13-0400 BP Systolic 148 mm[Hg] Vanessa [facility]nes [facility] Work Phone: 09-07-2016 15:13-0400 Height 175.26 cm [facility] Work Phone: 09-07-2016 15:13-0400 Pulse (Heart Rate) 48 /min [facility] Work Phone: 09-07-2016 15:13-0400 Respiratory Rate 16 /min [facility] Work Phone: 09-07-2016 15:13-0400 Weight 97.98 kg Vanessa Lan[facility] Work Phone: Encounters Encounter Date Encounter Type Care Provider Facility Start: 10-27-2024 End: 10-27-2024 Emergency department patient visit Dr. Devika Arcos MD Work Phone: -Emergency Department Work Phone: Start: 10-24-[address] Devika Arcos MD Work Phone: -[facility] [place] Work Phone: Start: 10-24-2024 ambulatory OOT SMAL Facility:[facility] Start: 10-20-2024 ambulatory OBDULIO KITCHEN Facility:[facility] Start: 10-10-2024 End: 10-17-2024 Refill Jeremias Dempsey MD Work Phone: Neurology Comment on above: Refill Request Start: 10-08-2024 End: 10-08-[address] Devika Arcos MD Work Phone: -[facility] [place] Start: 10-08-2024 End: 10-08-[address] Devika Arcos MD Work Phone: -[facility] Work Phone: Start: 10-08-2024 End: 10-08-2024 ambulatory OOTDR SMAL Facility:[facility] Start: 08-08-2024 End: 08-08-2024 Patient encounter procedure Jeremias Dempsey MD Work Phone: Neurology Comment on above: Parkinson's disease, unspecified whether dyskinesia present, unspecified whether manifestations fluctuate (HCC) (Primary Dx); IBAN (obstructive sleep apnea); RLS (restless legs syndrome); Shortness of breath; Diaphoresis; Temperature intolerance; Hypertension, unspecified type; Nonintractable episodic headache, unspecified headache type Start: 08-08-2024 End: 08-08-2024 ambulatory JEREMIAS DEMPSEY JR Facility:[facility] Start: 08-08-2024 End: 08-27-2024 Telephone encounter Jeremias Dempsey MD Work Phone: Neurology Comment on above: Request Outside [facility] Records (Sleep Study) Start: 08-07-2024 End: 08-07-2024 Telephone encounter Jeremias Dempsey MD Work Phone: Neurology Start: 07-22-2024 End: 07-22-[address] Devika Arcos MD Work Phone: -[facility] Work Phone: Start: 07-22-2024 End: 07-22-2024 ambulatory OOTDR SMAL Facility:[facility] Start: 05-28-2024 ambulatory Devika Arcos Facility: [facility] Start: 05-01-2024 End: 05-12-2024 ambulatory Jeremias Dempsey MD Work Phone: Neurology Comment on above: Regarding appt Start: 05-01-2024 End: 05-12-2024 E-mail encounter from caregiver Jeremias Dempsey Jr., MD Work Phone: Neurology Start: 04-09-2024 End: 04-09-2024 [facility] Start: 03-19-2024 End: 03-20-2024 Refill Jeremias Dempsey MD Work Phone: Neurology Comment on above: Med Change Request Start: 03-18-2024 End: 03-20-2024 Refill Jeremias Dempsey MD Work Phone: Neurology Comment on above: Med Change Request Start: 02-19-2024 End: 02-20-2024 Telephone encounter Jeremias Dempsey MD Work Phone: Neurology Comment on above: CPAP Compliance Start: 02-18-2024 End: 02-18-2024 Patient encounter procedure Jeremias Dempsey MD Work Phone: Neurology Comment on above: Parkinson's disease, unspecified whether dyskinesia present, unspecified whether manifestations fluctuate (HCC) (Primary Dx); IBAN (obstructive sleep apnea); Frequent headaches; Tinnitus, unspecified laterality; Hypertension, unspecified type Start: 02-18-2024 End: 02-18-2024 ambulatory JEREMIAS DEMPSEY JR Facility:[facility] Start: 12-11-2023 End: 12-11-2023 ambulatory Devika [facility] Facility:[facility] Start: 06-29-2023 ambulatory Jimmy Benitez MD Work Phone: Neurology Comment on above: New Medication Reque st Start: 06-25-2023 Telephone encounter Bailee Alcantara APRN.CNP Work Phone: Neurology Comment on above: Patient Update (Rece ived insurance denial from Dandre Hernandez. Reason for denying request is not medically necessary. //Reference # [id number]//Placed on Bailee's desk for review. /) Start: 11-10-2022 End: 11-10-2022 Patient encounter procedure Jimmy Benitez MD Work Phone: Neurology Comment on above: Parkinson disease (H CC) (Primary Dx) Start: 10-02-2022 ambulatory Jimmy Benitez MD Work Phone: Neurology Comment on above: New medication Start: 09-29-2022 End: 09-29-[address] Devika Arcos Work Phone: [facility] Start: 07-10-2022 End: 07-10-2022 Patient encounter procedure Jimmy Benitez MD Work Phone: Neurology Comment on above: Parkinson disease (H CC) (Primary Dx) Start: 06-20-2022 End: 06-20-[address] Devika Arcos Work Phone: [facility] Work Phone: Start: 06-20-2022 End: 06-20-[address] Devika Arcos Work Phone: [facility] Start: 06-13-2022 End: 06-13-[address] Devika Arcos Work Phone: [facility] Work Phone: Start: 06-08-2022 End: 06-08-2022 Patient encounter procedure Bailee Choe APRN.CLINICAL QUALITY ASSURANCE ASSOCIATE Work Phone: Neurology Comment on above: Tremor (Primary Dx); IBAN (obstructive sleep apnea); Other fatigue; Frequent headaches; Tinnitus, unspecified laterality; Hypertension, unspecified type Start: 05-09-2022 Telephone encounter Jeremias Dempsey MD Work Phone: Neurology Comment on above: Patient Update; Amirah ent Question Start: 05-06-2022 Refill Bailee sabillon APRN.CLINICAL QUALITY ASSURANCE ASSOCIATE Work Phone: Neurology Comment on above: Refill Request Start: 04-10-2022 Telephone encounter Bailee Alcantara APRN.CLINICAL QUALITY ASSURANCE ASSOCIATE Work Phone: Neurology Comment on above: Refill Request Start: 03-04-2022 Refill Bailee sabillon APRN.CLINICAL QUALITY ASSURANCE ASSOCIATE Work Phone: Neurology Comment on above: Refill Request Start: 02-22-2022 Telephone encounter Jeremias Dempsey MD Work Phone: Neurology Comment on above: Patient Update Start: 12-29-2021 End: 12-29-2021 Patient encounter procedure Bailee Choe APRN.CLINICAL QUALITY ASSURANCE ASSOCIATE Work Phone: Neurology Comment on above: Tremor (Primary Dx); Tinnitus, bilateral; Hypertension, unspecified type; Obstructive sleep apnea; Other fatigue; Frequent headaches Start: 12-29-2021 Telephone encounter Bailee Alcantara APRN.CLINICAL QUALITY ASSURANCE ASSOCIATE Work Phone: Neurology Comment on above: Patient Update Start: 11-21-2021 Refill Bailee sabillon APRN.CLINICAL QUALITY ASSURANCE ASSOCIATE Work Phone: Neurology Comment on above: Refill Request Start: 10-18-2021 Non-patient / Non-visit Dr. Carol Arcos Work Phone: [facility] Start: 10-18-2021 End: 10-18-[address] Devika Arcos Work Phone: [facility] Start: 10-04-2021 Refill Bailee sabillon APRN.CLINICAL QUALITY ASSURANCE ASSOCIATE Work Phone: Neurology Comment on above: Refill Request; Refi ll Request Start: 09-20-2021 End: 09-20-[address] Devika Arcos Work Phone: [facility] Start: 09-15-2021 End: 09-15-2021 Patient encounter procedure Virginia Renteria PA-C Work Phone: [facility] Comment on above: Viral syndrome (Prim akila Dx); Acute nonintractable headache, unspecified headache type; Nausea; Fatigue, unspecified type Start: 09-08-2021 End: 09-08-2021 Patient encounter procedure Bailee Choe APRN.CLINICAL QUALITY ASSURANCE ASSOCIATE Work Phone: Neurology Comment on above: Parkinson disease (H CC) (Primary Dx) Start: 09-08-2021 End: 09-08-[address] Devika Arcos Work Phone: [facility] Start: 08-06-2021 Refill Jeremias lezama MD Work Phone: Neurology Comment on above: Refill Request; Refi ll Request Start: 07-08-2021 End: 07-08-2021 Patient encounter procedure Jeremias Dempsey MD Work Phone: Neurology Comment on above: Parkinson disease (H CC) (Primary Dx) Start: 05-10-2021 End: 05-10-2021 Patient encounter procedure [facility] Procedures Date Procedure Procedure Detail Performing Clinician Start: 10-27-[address] Devika kendall MD Work Phone: Start: 10-24-2024 Total iron binding capacity measurement Dr. Devika Arcos MD Work Phone: Start: 10-08-2024 Measurement of occult blood in stool specimen using immunoassay Dr. Devika Arcos MD Work Phone: Start: 10-08-[address] Devika Arcos MD Work Phone: Comment on above: Test Ordered: [id number] Apolipoprotein BApo lipoprotein B 91 [H ] mg/dL Reference Range: <90 Desirable < 90 Borderline High 90 - 99 High 100 - 130 Very High >130 ASCVD RISK THERAPEUTIC TARGET CATEGORY APO B (mg/dL) Very High Risk <80 (if extreme risk <70) High Risk <90 Moderate Risk <90Performed at: [facility] [id number] Director: Margarito Sanders MD, Phone: [phone] at: [employer] [address] [id number] Director: Yg Perrin PhD, Phone: [phone] Test Ordered: [id number] Magnesium, RBCTest(s) [id number], RBCwas developed and its performance characteristicsdetermined by [employer]. It has not been cleared or approvedby the Food and Drug Administration.Magnesium, RBC 6.9 mg/dL BN Reference Range: 3.7-7.0Performed at: [address] [id number] Director: Margarito Sanders MD, Phone: [phone] at: [facility] [place], [place] [id number] Director: Yg Perrin PhD, Phone: [phone] Start: 10-08-2024 Urnls dip stick/tablet reagent auto microscopy Dr. Devika Arcos MD Work Phone: Start: 07-22-[address] Devika Arcos MD Work Phone: Start: 07-22-[address] Devika Arcos MD Work Phone: Comment on above: Test Ordered: [id number] Dihydrotestosterone Dihydrotestosterone 8.5 [L ] ng/dL ES Reference Range: .This test was developed and its performance characteristicsdetermined by [employer]. It has not been cleared or approvedby the Food and Drug Administration.Reference Range:Adult Male: 30 - 85Performed at: [facility] [id number] [place], [place] [id number] Director: Agapito Delgadillo MD, Phone: [phone] at: [address] [id number] Director: Yg Perrin PhD, Phone: [phone] Start: 07-22-2024 Assay of prostate specific antigen total Dr. Devika Arcos MD Work Phone: Comment on above: This test was performed using the [employer] tPSA method. Measured values of a patient sample can vary depending on the testing procedure used. PSA values determined on patient samples by different testing procedures cannot be used interchangeably. If there is a change in PSA assays while monitoring therapy, sequential testing should be performed to confirm baseline values. Start: 07-22-[address] Devika Arcos MD Work Phone: Start: 07-22-[address] Devika Arcos MD Work Phone: Start: 07-22-[address] Devika kendall MD Work Phone: Comment on above: Performed at: [place] [id number] Director: Yg Perrin PhD, Phone: [phone] Start: 07-22-[address] Devika matos MD Work Phone: Comment on above: According to the National Academy of Cli nical Biochemistry,the reference interval for Thyroglobulin (TG) should berelated to euthyroid patients and not for patients whounderwent thyroidectomy. TG reference intervals for thesepatients depend on the residual mass of the thyroid tissueleft after surgery. Establishing a post-operative baselineis recommended. The assay limit of quantitation is 0.1ng/mLThyroglobulin measured by [facility] [employer] Start: 07-22-[address] Devika Arcos MD Work Phone: Start: 07-22-[address] Bertin Arcos MD Work Phone: Comment on above: Thyroglobulin Antibody measured by [employer] CommunicationsMethodologyIt should be noted that the presence of thyroglobulinantibodies may not be pathogenic nor diagnostic, especiallyat very low levels. The assay substance abuse counselor has found thatfour percent of individuals without evidence of thyroiddisease or autoimmunity will have positive TgAb levels upto 4 IU/mL. Start: 07-22-2024 Total iron binding capacity measurement Dr. Devika Arcos MD Work Phone: Start: 07-22-2024 Vitamin D, 25-hydroxy measurement Dr. Carol Arcos MD Work Phone: Comment on above: Vitamin D StatusDeficiency: <20 ng/mL (5 0nmol/L)Insufficiency: 20-30 ng/mL (50-75 nmol/L)Sufficiency: 30-100 ng/mL (75-250 nmol/L)Toxicity: >100 ng/mL (>250 nmol/L) Start: 10-18-2021 Radionuclide imaging of perfusion of myocardium under exercise stress Dr. Devika Arcos Work Phone: Start: 09-07-2016 End: 09-07-2016 Dietary management education, guidance, and counseling Vanessa Haynes Start: 09-07-2016 End: 09-07-2016 Follow Up Appt 1 year Chemo Grewal MD Start: 09-07-2016 End: 09-07-2016 PFM Chemo Grewal MD Start: 09-06-2016 Placement of stent in coronary artery Status post cardiac stent placement Alexus Downey RN Plan of Treatment Date Care Activity Detail Author Start: 2035 RSV Vaccine (1 - 1-dose 75+ series) RSV Vaccine (1 - 1-dose 75+ series) [facility] Start: 12-19-2024 End: 12-19-2024 Patient encounter procedure 12/19/2024 1:00 PM EDT Office Visit Neurology [address] [id number] Jeremias Dempsey Jr., MD [address] [place] [address] follow up Neurology Comment on above: follow up Start: 11-24-2024 Influenza vaccination [facility] Start: 10-27-2024 [facility] Start: 10-20-2024 End: 10-20-2024 Patient encounter procedure [facility] Comment on above: establish care Start: 10-08-2024 Procedure [facility] Start: 08-08-2024 End: 08-08-2024 Patient encounter procedure Neurology Comment on above: Parkinsons Disease Parkinsons, IBAN on p ap (bringing to appointment), Headache-LORI 02/18/24 trial Sinemet Start: 08-08-2024 End: 11-07-2024 CBC W Auto Differential panel - Blood COMPLETE BLOOD COUNT AND DIFFERENTIAL Lab Routine Shortness of breath Expected: 08/08/2024, Expires: 11/07/2024 [facility] Comment on above: Expected: 08/08/2024, Expires: Start: 08-08-2024 End: 11-07-2024 Comprehensive metabolic 2000 panel - Serum or Plasma COMPREHENSIVE METABOLIC PANEL Lab Routine Shortness of breath Expected: 08/08/2024, Expires: 11/07/2024 [facility] Comment on above: Expected: 08/08/2024, Expires: Start: 08-08-2024 End: 11-07-2024 Ferritin [Mass/volume] in Serum or Plasma FERRITIN Lab Routine RLS (restless legs syndrome) Expected: 08/08/2024, Expires: 11/07/2024 [facility] Work Phone: Comment on above: Expected: 08/08/2024, Expires: Start: 08-08-2024 End: 11-07-2024 Iron and Iron binding capacity panel - Serum or Plasma IRON AND TIBC Lab Routine RLS (restless legs syndrome) Expected: 08/08/2024, Expires: 11/07/2024 [facility] Comment on above: Expected: 08/08/2024, Expires: Start: 08-08-2024 End: 11-07-2024 Thyrotropin [Units/volume] in Serum or Plasma THYROID STIMULATING HORMONE Lab Routine Diaphoresis Temperature intolerance Expected: 08/08/2024, Expires: 11/07/2024 [facility] Comment on above: Expected: 08/08/2024, Expires: Start: 08-08-2024 End: 11-07-2024 Thyroxine (T4) free [Mass/volume] in Serum or Plasma T4 FREE/FREE THYROXINE Lab Routine Diaphoresis Temperature intolerance Expected: 08/08/2024, Expires: 11/07/2024 [facility] Comment on above: Expected: 08/08/2024, Expires: Start: 05-16-2024 DIABETES SCREEN DIABETES SCREEN [facility] Start: 05-16-2024 Diabetes Screening Diabetes Screening [facility] Start: 05-05-2024 End: 05-05-2024 Patient encounter procedure 05/05/2024 2:20 PM EST Office Visit Neurology [address] [place], [place] [id number] Jeremias Dempsey Jr., MD [address] [place], [place] [address] 2 month follow up Neurology Comment on above: 2 month follow up Start: 11-25-2023 Covid-19 Vaccine () Covid-19 Vaccine () [facility] Start: 11-25-2023 Influenza vaccination [facility] Start: 11-11-2023 BP CONTROLLED (<130/80) BP CONTROLLED (<130/80) [facility] Start: 10-28-2023 Urine microalbumin profile [facility] Start: 03-26-2023 Behavioral Health Screening Behavioral Health Screening [facility] Start: 03-26-2023 Depression Assessment Depression Assessment [facility] Start: 11-24-2022 Covid-19 Vaccine ( season) Covid-19 Vaccine ( season) [facility] Start: 11-24-2022 Influenza vaccination [facility] Start: 03-26-2022 DEPRESSION ASSESSMENT DEPRESSION ASSESSMENT [facility] Start: 11-24-2021 Influenza vaccination [facility] Start: 03-26-2021 DEPRESSION ASSESSMENT DEPRESSION ASSESSMENT [facility] Start: 2020 RSV Vaccine (1 - 1-dose 60+ series) RSV Vaccine (1 - 1-dose 60+ series) [facility] Start: 09-05-2017 End: 09-05-2017 Appointment Appointment [facility] Work Phone: Start: 09-07-2016 End: 09-07-2016 Appointment Appointment [facility] Work Phone: Start: 09-07-2016 End: 09-07-2016 *Hepatic Function Panel *Hepatic Function Panel [facility] Work Phone: Start: 09-07-2016 End: 09-07-2016 Echocardiography Echocardiogram (complete) [facility] Work Phone: Start: 09-07-2016 End: 09-07-2016 Electrocardiogram, complete EKG (In office) [facility] Work Phone: Start: 09-07-2016 End: 09-07-2016 Follow Up Appt 1 year Follow Up Appt 1 year [facility] [place] [facility] Work Phone: Start: 09-07-2016 End: 09-07-2016 Lipid panel [AGGREGATE] *Lipid Profile CC PCP [facility] Work Phone: Start: 09-07-2016 End: 09-07-2016 Nuclear stress test -exercise Nuclear stress test -exercise [facility] Work Phone: Start: 09-07-2016 End: 09-07-2016 P[facility] [employer] Work Phone: Start: 2015 PROSTATE CANCER SCREENING DISCUSSION PROSTATE CANCER SCREENING DISCUSSION [facility] Start: 2015 Prostate specific antigen measurement Prostate Cancer Screening Discussion [facility] Start: 2010 Pneumococcal Vaccine: 50+ (1 of 1 - PCV) Pneumococcal Vaccine: 50+ (1 of 1 - PCV) [facility] Start: 2010 SHINGRIX VACCINE (1 of 2) SHINGRIX VACCINE (1 of 2) [facility] Start: 2005 COLOGUARD (FIT-DNA) COLOGUARD (FIT-DNA) [facility] Start: 2005 Colonoscopy COLONOSCOPY [facility] Start: 2005 COLORECTAL CANCER SCREENING COLORECTAL CANCER SCREENING [facility] Start: [address] COLONOGRAPHY [facility] Start: 2005 FECAL OCCULT BLOOD FECAL OCCULT BLOOD [facility] Start: 2005 Prostate specific antigen measurement Prostate Cancer Screening Discussion [facility] Start: 2005 Screening for malignant neoplasm of colon [facility] Start: 2005 SIGMOIDOSCOPY SIGMOIDOSCOPY [facility] Start: 1995 Lipid panel Lipid Screening [facility] Start: 1995 LIPID SCREEN LIPID SCREEN [facility] Start: 1978 ANNUAL PCP TEAM CHRONIC DISEASE VISIT ANNUAL PCP TEAM CHRONIC DISEASE VISIT [facility] Start: 1978 Anxiety Screening Anxiety Screening [facility] Start: 1978 BP CONTROLLED (<130/80) BP CONTROLLED (<130/80) [facility] Start: 1978 Depression Screening Depression Screening [facility] Start: 1978 HEPATITIS C SCREENING HEPATITIS C SCREENING [facility] Start: 1978 Hepatitis C screening Hepatitis C Screening [facility] Start: 1978 HIV SCREENING HIV SCREENING [facility] Start: 1978 HIV screening HIV Screening [facility] Start: 1972 Adult depression screening assessment DEPRESSION SCREENING [facility] Start: 1965 COVID-19 VACCINE (#1) COVID-19 VACCINE (#1) [facility] Start: 1965 COVID-19 VACCINE (1) COVID-19 VACCINE (1) [facility] Start: 1960 COVID-19 VACCINE (#1) COVID-19 VACCINE (#1) [facility] CBC W Auto Different ial panel - Blood [facility] Influenza virus A an d B RNA and SARS-CoV-2 (COVID-19) N gene panel - Respiratory specimen by ADY with probe detection COVID WITH FLUA+B, ROUTINE Microbiology Routine Acute nonintractable headache, unspecified headache type Nausea Fatigue, unspecified type Ordered: 09/15/2021 [facility] Work Phone: Comment on above: Ordered: 09/15/2021 Patient Education Thrombocytopenia [facility] Work Phone: Radionuclide imaging of perfusion of myocardium under exercise stress [facility] Work Phone: [facility] Work Phone: [facility] Immunizations Immunization Date Immunization Notes Care Provider Fa cili 12-21-2018 Influenza, injectabl e, Madin Cathy Canine Kidney, preservative free, quadrivalent Jeremias Dempsey Jr., MD Work Phone: [facility] 12-21-2018 influenza virus vaccine, unspecified formulation Bailee Choe APRN.CNP Work Phone: [facility] 10-27-2013 tetanus toxoid, redu gena diphtheria toxoid, and acellular pertussis vaccine, adsorbed Jeremias Dempsey Jr., MD Work Phone: [facility] Payers Date Payer Category Payer Self-pay [id number] 2023 Self-pay [id number] 2023 Blue [employer] Blue [employer] DANDRE MONIQUE EZEKIEL O SUKUMAR [id number] 2023 Unknown [id number] 2016 Unknown DANDRE JUAREZ CARD PPO OOS [id number] 2016-Present [phone] [address] [place] [address] PPO [id number] 2016 Unknown [id number] 2007 Unknown [id number] Unknown [id number] Unknown [id number] Unknown [id number] Unknown [id number] Unknown [id number] Unknown [id number] Social History Date Type Detail Facility Start: 02-04-2019 End: 03-07-2022 Tobacco smoking status NHIS Unknown if ever smoked [facility] Start: 07-10-2018 None [facility] Start: 07-10-2018 Spouse/ Signif icant Other [facility] Start: 07-12-2018 Non-smoker [facility] Start: 1960 Sex Assigned At Male W [facility] Start: 10-20-2018 End: 10-27-2024 Tobacco smoking status NHIS Never smoked tobacco [facility] Start: 10-20-2018 End: 12-29-2021 Tobacco use and exposure Smokeless tobacco non-user [facility] Start: 07-08-2021 End: 08-08-2024 Alcohol intake Current drinker of alcohol (finding) [facility] Start: 2021 History SDOH Alcohol Comment Seldom [facility] Start: 1960 Sex Assigned At Not on file [facility] Start: 06-28-2021 End: 12-29-2021 Exposure to SARS-CoV-2 (event) Not sure [facility] Start: 07-10-2022 End: 11-10-2022 History of Social function [facility] Start: 07-10-2022 End: 11-10-2022 Tobacco use panel [facility] National Score (1-100), lower number is lower risk 66 [facility] Mental Status Date Assessment Result Facility 10-27-2024 Cognitive function Level Of Cons ciousness Awake;Alert;Appropriate;Follow s Commands [facility] Work Phone: Clinical Notes 07-15-2018 to 10-27-2024 Note Date & Type Note Facility 10-27-2024 Discharge summary [facility] 10-27-2024 Discharge summary Note Date/Time October 27, 2024 8:47pm [facility] Medical Records Department [address] [place] [address] Emergency Department Summary 10/27/24 MR#: [id number] Acct: [id number] Name: MELANIE NAVARRO Rep #:[id number] : 1960 64 From: Kvng Echeverria MD PCP: Dr. Guillermo Acosta MD Status :REG ER Location: ED HPI History of Present Illness Chief Complaint: Abn Labs Informant: patient and spouse/S.O. Narrative Narrative: 64-year-old male had some routine blood work done 3 days ago showed thrombocytopenia with a platelet count of 14. When this was discovered by the lab today he was contacted and advised to come to the ER. He is asymptomatic. states he had a minor fall and injury to his right face couple weeks ago and it really became swollen and bruised traumatically, but it resorbed and overtime went away and he has been asymptomatic there in the meantime. No bleeding from anywhere else. He denies any melena recently. He denies any systemic symptoms of feeling poorly. His blood pressure is high as the notes, the patient denies having a headache or chest discomfort or dyspnea, and he admits that he missed his blood pressure medications the last couple weeks on accident but he has them again now. He has seen hematology for his low platelet counts and he does not know why they are low. 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 Home Medications ?Medication ?Instructions ?Recorded ?Last Taken ?Type losartan 100 1 tab PO DAILY #90 tabs 11/25 09/15 Unknown Rx mg-hydrochlorothiazide 25 mg tablet amlodipine 10 mg tablet 10 mg PO QDAY 04/09/24 Unkno wn History carbidopa 25 mg-levodopa 100 mg 1 tab PO TID 04/09/24 Unknown History tablet carbidopa ER 50 mg-levodopa 200 mg 1 tab PO QPM Unknown History tablet,extended release dexamethasone 20 mg tablet 40 mg (2 x 20 mg) PO DAILY 3 days 10/27/24 Unknown Rx #6 tabs Allergy/AdvReac Type Severity Reaction Status Date / Time No Known Allergies Allergy Verified 10/27/24 15:01 Family History Father CAD (coronary artery disease) Myocardial infarction, Onset Age: 42 Sister Hypertension Mother Colon cancer Hypertension Surgical History History of left knee surgery History of right knee surgery Postsurgical percutaneous transluminal coronary angioplasty (PTCA) status (~08/2008) Presence of stent in coronary artery (~08/2008) Social History Smoking Status: Never smoker alcohol intake: current alcohol intake frequency: a few times a month substance use type: does not use caffeine: Yes Type: coffee Number of servings: 3 what type of physical activity do you participate in: walking frequency: 3-4 times per week duration: 30-45 minutes/day ROS ROS ED Constitutional Constitutional ED: Denies chills or fever(s) Eyes Eyes: Denies change in vision or diplopia ENT ENT ED: Denies rhinorrhea or sore throat Cardiovascular Cardiovascular: Denies chest pain or palpitations Respiratory/Chest Respiratory/Chest: Denies cough or dyspnea Gastrointestinal Gastrointestinal: Denies abdominal pain, diarrhea, melena, nausea or vomiting Genitourinary Genitourinary ED: Denies dysuria or hematuria Musculoskeletal Musculoskeletal: Denies back pain or neck pain Integumentary Denies abscess or rash Neurologic Neurologic: Reports tremor(s); Denies headache(s), paresthesias or weakness Psychiatric Psychiatric: Denies anxiety or suicidal thoughts EXAM Physical Exam Const Vital Signs: 10/27/24 14:58 10/27/24 16:17 10/27/24 16:57 Temperature 98 F Temperature Source Oral Pulse Rate 63 55 L Respiratory Rate 18 18 Respiratory Effort Normal Respiratory Pattern Normal Blood Pressure 181/83 H 184/102 H Blood Pressure Mean 115 129 Pulse Ox 99 98 Oxygen Delivery Method Room Air Room Air 10/27/24 18:00 10/27/24 20:00 Temperature Temperature Source Pulse Rate 55 L 56 L Respiratory Rate 18 15 Respiratory Effort Respiratory Pattern Blood Pressure 180/96 H 186/91 H Blood Pressure Mean 124 122 Pulse Ox 99 99 Oxygen Delivery Method Room Air Room Air Positive well nourished and well developed General Appearance ED: well developed and NAD HEENT Reports moist mucous membranes normocephalic and atraumatic Eyes PERRL and EOMs intact bilaterally Neck full ROM and supple Resp normal respiratory effort and clear to auscultation bilaterally Cardio regular rate, regular rhythm and no murmurs GI non-tender and non-distended Auscultation: normoactive bowel sounds Palpation: soft Back/Spine no CVA tenderness General Back: other FROM Extremity Extremity Narrative: Some dark discoloration both lower legs symmetrically without edema. There are some petechiae here as well. The patient states this does not appear to be new to him and states his legs always look like this. General Extremety ED: Negative for edema, pulses abnormal or tenderness General Extremity: Negative for edema or pulses abnormal Neuro oriented x3, CN's II-XII intact bilaterally and no sensory deficits noted Sensorium / Orientation: awake and alert Motor Exam: strength 5/5 throughout Psych mental status grossly normal Skin no wounds Skin Narrative: Some fine petechiae in the distal lower legs, otherwise no rashes or lesions or purpura/ecchymosis. MDM MDM MDM Narrative Medical decision making narrative: We repeated the patient's labs, his platelet count is now 15, but his hemoglobinis stable. Patient is doing well his hemodynamics are stable, he is hypertensive but asymptomatic from it. It appears he is on 3 antihypertensive medications, amlodipine, losartan, HCTZ which may explain why after missing these for several weeks that his blood pressure still high. Discussed with hematology oncology Dr. Angel. We discussed his prior response to steroids several years ago and he recommends given the patient high-dose dexamethasone, 40 mg now along with a prescription for 3 more days of 40 mg/day and following up in the office. Patient comfortable with that plan. History & Record Review Additional record(s) reviewed:: Prior labs Lab Data Attestation: I reviewed the patient's lab results. Labs: Laboratory Results - last 24 hr 10/27/24 18:09 WBC 7.3 RBC 4.85 Hgb 13.6 Hct 41.5 MCV 85.6 MCH 28.0 MCHC 32.8 RDW Std Deviation 39.8 RDW Coeff of Benita 13.0 Plt Count 15 L* MPV 12.0 Immature Gran % (Auto) 0.700 Neut % (Auto) 68.3 Lymph % (Auto) 15.4 L [place] % (Auto) 11.7 H Eos % (Auto) 2.9 Baso % (Auto) 1.0 Absolute Neuts (auto) 5.0 Absolute Lymphs (auto) 1.12 Nucleated RBC % 0 Differential Comment Plt Morphology Comment GIANT Sodium 140 Potassium 3.8 Chloride 104 Carbon Dioxide 24.5 Anion Gap 12 BUN 13 Creatinine 0.88 Estim Creat Clear Calc 98.41 Est GFR (MDRD) Non-Af 96 BUN/Creatinine Ratio 14.4 Glucose 84 Calcium 9.4 Management Discussion w/another healthcare provider: [employer] Discharge Plan Triage Chief Complaint: Abn Labs ED Provider: Kvng Echeverria Dx/Rx/DC Orders Clinical Impression: Thrombocytopenia, Accelerated hypertension Instructions: Thrombocytopenia Prescriptions: New dexamethasone 20 mg tablet 40 mg PO DAILY 3 Days Qty: 6 0RF No Action amlodipine 10 mg tablet 10 mg PO QDAY carbidopa-levodopa 25-100 mg tablet 1 tab PO TID carbidopa-levodopa 50-200 mg tablet extended release 1 tab PO QPM losartan-hydrochlorothiazide 100-25 mg tablet 1 tab PO DAILY Qty: 90 3RF Primary Care Provider: Guillermo Acosta Referrals: Eliz Cristobal MD [Med Staff - Active Staff] - As soon as possible Print Language: Chinese Disposition Disposition: Home, Self Care What to do if you have Problems For any increased pain, shortness of breath, bleeding, nausea or vomiting, chestpain, or any unexpected problems, contact your Primary Care Provider. Call [facility] ([phone]) or report to the closest Emergency Room. Call 911 if necessary. 10/27/242046 <Electronically signed by Kvng Echeverria MD> Cosigner Signature (if applicable): CC: Dr. Guillermo Acosta MD; Dr. Eliz Cristobal MD ~ Signed [facility] Work Phone: [phone]) 625-214707-25-2025 Telephone encounter Note* Telephone Encounter - Jorge Dutton LPN - 10/17/2024 7:45 AM EDT Prescription Refill Information The patient has been identified by name and date of : Yes Caregiver verified no other encounters exist for this prescription request: Yes Caregiver confirmed with patient/requestor that no other refills are due, in the near future, with this provider at this time: Yes The last office visit in the department: 08/08/24 Does the patient have a future office visit with this provider/department: Yes 12/19/24 Requested Prescriptions Pending Prescriptions Disp Refills carbidopa-levodopa CR (SINEMET CR) 50-200 mg per tablet [Pharmacy Med Name: CARBIDOPA-LEVO ER 50-200 TAB] 90 tablet 1 Sig: TAKE 1 TABLET AT 8PM NIGHTLY. Jorge Dutton LPN October 17, 2024 7:45 AM [facility]07-25-2025 Miscellaneous Notes* Telephone Encounter - Jorge Dutton LPN - 10/17/2024 7:45 AM EDT Prescription Refill Information The patient has been identified by name and date of : Yes Caregiver verified no other encounters exist for this prescription request: Yes Caregiver confirmed with patient/requestor that no other refills are due, in the near future, with this provider at this time: Yes The last office visit in the department: 08/08/24 Does the patient have a future office visit with this provider/department: Yes 12/19/24 Requested Prescriptions Pending Prescriptions Disp Refills carbidopa-levodopa CR (SINEMET CR) 50-200 mg per tablet [Pharmacy Med Name: CARBIDOPA-LEVO ER 50-200 TAB] 90 tablet 1 Sig: TAKE 1 TABLET AT 8PM NIGHTLY. Jorge Dutton LPN October 17, 2024 7:45 AM [facility] Telephone encounter Note * Telephone Encounter - Jorge Dutton LPN - 08/27/2024 1:21 PM EDT Received sleep study results from Dr. Miles. Jorge Dutton LPN [facility]06-04-2025 Miscellaneous Notes* Telephone Encounter - Jorge Dutton LPN - 08/27/2024 1:21 PM EDT Received sleep study results from Dr. Miles. Jorge Dutton LPN * Telephone Encounter - Rosi Mcnair OCCA - 08/26/2024 10:37 AM EDT Faxed request for sleep study results to Dr. Page's office at [phone]. Please watch for fax. LEV Galvan * Telephone Encounter - Rosi Mcnair OCCA - 08/11/2024 9:53 AM EDT TC to Dr. Page's office with no answer. Unable to leave at this time. Please try again later.LEV Galvan * Telephone Encounter - Rosi Mcnair OCCA - 08/08/2024 4:06 PM EDT TC to Dr. Page's office, no answer as office is currently closed. Need to get copy of patients sleep study from 10 years ago to send to [facility] with order for new Cpap device. All other documents printed and in holding folder at nurses desk to be faxed. Please try to call on next business day. Thank you. LEV Galvan documented in this encounterK[facility] Telephone encounter Note * Telephone Encounter - Rosi Mcnair OCCA - 08/26/2024 10:37 AM EDT Faxed request for sleep study results to Dr. Page's office at [phone]. Please watch for fax. LEV Galvan [facility]05-19-2025 Telephone encounter Note* Telephone Encounter - Rosi Mcnair OCCA - 08/11/2024 9:53 AM EDT TC to Dr. Page's office with no answer. Unable to leave at this time. Please try again later.LEV Galvan [facility]05-16-2025 Telephone encounter Note* Telephone Encounter - Rosi Mcnair OCCA - 08/08/2024 4:06 PM EDT TC to Dr. Page's office, no answer as office is currently closed. Need to get copy of patients sleep study from 10 years ago to send to [facility] with order for new Cpap device. All other documents printed and in holding folder at nurses desk to be faxed. Please try to call on next business day. Thank you. LEV Galvan [facility]05-16-2025 NoteHNO ID: [id number] Author: JEREMIAS DEMPSEY JR, MD Service: ? Author Type: Physician Type: Progress Notes Filed: 08/08/2024 16:32 Note Text: ESTABLISHED PATIENT VISIT CHIEF COMPLAINT: Follow Up HISTORY OF PRESENT ILLNESS: Melanie Navarro is a 64 year old male, BMI 33.05 kg/m2 with a PMH significant for and per last office visit of 02/18/24: 1. Parkinson's disease, unspecified whether dyskinesia present, unspecified whether manifestations fluctuate (HCC) - ICD9: 332.0, ICD10: G20.A1 (primary diagnosis) Patient with known history and exams consistent with PD. Since last saw me was placed on trial of Selegiline but no impact on symptoms per pt. My concern is patient needing a more frequent and thus, higher peak level dopamine med - and thus feel rather than trying to treat once daily, recommend the following: Trial of Sinemet 25/100mg TID (5 hours apart), followed by Sinemet CR 50/200mg 5 hours after last IR dose. 2. IBAN (obstructive sleep apnea) - ICD9: 327.23, ICD10: G47.33 Subjectively compliant. Need PAP data download for review. Requested from DME. 3. Frequent headaches - ICD9: 784.0, ICD10: R51.9 Resolved. 4. Tinnitus, unspecified laterality - ICD9: 388.30, ICD10: H93.19 Chronic, unchanged and for which pt has had prior workups including with ENT. 5. Hypertension, unspecified type - ICD9: 401.9, ICD10: I10 Elevated. Encouraged pt to follow up with PCP. Currently without symptoms. Note pt asx, but found to be hypertensive today with pt reporting he did not take anti HTN meds this AM. Also did not bring PAP device as requested by phone calls earlier this week. Patient states stopped the Sinemet as felt like it was doing nothing. States took meds like he was supposed to for 3 months and just did not feel like it made a difference. Tremor is constant now. States Tremor is keeping him up at night. Will be extremely tired, but it will keep him up. Also has RLS which typically has not bothered him but now that tremor is keeping him awake and as a result is focusing more on the RLS. Was on Requip years ago but did not provide relief of RLS. States is feeling weaker as well. Does take part in exercise class and feels better after class and reports no issues completing. Still using PAP. No downloads available for review. Current PAP device old and has SD card that cannot be read. Last download we have from 2021 suggests on pressure of 7 cmH2O. States never feels refreshed in the AM. States had prior PAP titration to determine this. I still do not have formal copy of original sleep study. Patient reports no issues with PAP. States having headaches at the end of the day. Has not followed up with PCP. Not checking BP at home. Admits to missing anti-HTN meds often. No associated sensitivities. Often posterior head. REVIEW OF SYSTEMS GENERAL:No weight loss, malaise or fevers. HEENT:NNo changes in hearing or vision, no nose bleeds or other nasal problems NECK:Negative for lumps, goiter, pain and significant neck swelling RESPIRATORY: Negative for cough, wheezing. Does have SOB intermittently. States saw cardiology who felt it was not cardiac. I dont have results but per pt had ECG and ECHO and told it was fine. CARDIOVASCULAR: Negative for chest pain, or palpitations. GASTROINTESTINAL: Negative for abdominal discomfort, blood in stools or black stools or change in bowel habits GENITOURINARY: No history of dysuria, frequency or incontinence MUSCULOSKELETAL: Negative for joint pain or swelling, back pain or muscle pain. NEUROLOGIC:Negative for focal numbness or weakness, and dizziness or syncope, vision changes, speech/languag changes - EXCEPT that as per HPI above. SKIN:Negative for lesions, rash, and itching. LAB/IMAGING: Those performed since patient's last visit have been reviewed. WBC (k/uL) Date Value 05/16/2021 6.90 RBC (m/uL) Date Value 05/16/2021 4.70 Hemoglobin (g/dL) Date Value 05/16/2021 13.6 Hematocrit (%) Date Value 05/16/2021 41.6 MCV (fL) Date Value 05/16/2021 88.5 MCH (pG) Date Value 05/16/2021 28.9 MCHC (g/dL) Date Value 05/16/2021 32.7 RDW-CV (%) Date Value 05/16/2021 13.2 Platelet Count (k/uL) Date Value 05/16/2021 198 MPV (fL) Date Value 05/16/2021 10.6 Glucose (mg/dL) Date Value 05/16/2021 92 BUN (mg/dL) Date Value 05/16/2021 15 Creatinine (mg/dL) Date Value 05/16/2021 0.97 Sodium (mmol/L) Date Value 05/16/2021 137 Potassium (mmol/L) Date Value 05/16/2021 4.3 Chloride (mmol/L) Date Value 05/16/2021 100 CO2 (mmol/L) Date Value 05/16/2021 26 Protein, Total (g/dL) Date Value 05/16/2021 7.4 Albumin (g/dL) Date Value 05/16/2021 4.4 Calcium (mg/dL) Date Value 05/16/2021 9.5 Alkaline Phosphatase (U/L) Date Value 05/16/2021 93 Bilirubin, Total (mg/dL) Date Value 05/16/2021 0.4 AST (U/L) Date Value 05/16/2021 32 ALT (U/L) Date Value 05/16/2021 39 (more content not included)...[facility]05-16-2025 History of Present illness Narrative* Jeremias Dempsey Jr., MD - 08/08/2024 3:26 PM EDT ESTABLISHED PATIENT VISIT CHIEF COMPLAINT: Follow Up HISTORY OF PRESENT ILLNESS: Melanie Navarro is a 64 year old male, BMI 33.05 kg/m2 with a PMH significant for and per last office visit of 02/18/24: 1. Parkinson's disease, unspecified whether dyskinesia present, unspecified whether manifestations fluctuate (HCC) - ICD9: 332.0, ICD10: G20.A1 (primary diagnosis) Patient with known history and exams consistent with PD. Since last saw me was placed on trial of Selegiline but no impact on symptoms per pt. My concern is patient needing a more frequent and thus, higher peak level dopamine med - and thus feel rather than trying to treat once daily, recommend thefollowing: Trial of Sinemet 25/100mg TID (5 hours apart), followed by Sinemet CR 50/200mg 5 hours after last IR dose. 2. IBAN (obstructive sleep apnea) - ICD9: 327.23, ICD10: G47.33 Subjectively compliant. Need PAP data download for review. Requested from DME. 3. Frequent headaches - ICD9: 784.0, ICD10: R51.9 Resolved. 4. Tinnitus, unspecified laterality - ICD9: 388.30, ICD10: H93.19 Chronic, unchanged and for which pt has had prior workups including with ENT. 5. Hypertension, unspecified type - ICD9: 401.9, ICD10: I10 Elevated. Encouraged pt to follow up with PCP. Currently without symptoms. Note pt asx, but found to be hypertensive today with pt reporting he did not take anti HTN meds this AM. Also did not bring PAP device as requested by phone calls earlier this week. Patient states stopped the Sinemet as felt like it was doing nothing. States took meds like he was supposed to for 3 months and just did not feel like it made a difference. Tremor is constant now. States Tremor is keeping him up at night. Will be extremely tired, but it will keep him up. Also has RLS which typically has not bothered him but now that tremor is keeping him awake and as a result is focusing more on the RLS. Was on Requip years ago but did not provide relief of RLS. States is feeling weaker as well. Does take part in exercise class and feels better after class and reports no issues completing. Still using PAP. No downloads available for review. Current PAP device old and has SD card that cannot be read. Last download we have from 2021 suggests on pressure of 7 cmH2O. States never feels refreshed in the AM. States had prior PAP titration to determine this. I still do not have formal copy of original sleep study. Patient reports no issues with PAP. States having headaches at the end of the day. Has not followed up with PCP. Not checking BP at home. Admits to missing anti-HTN meds often. No associated sensitivities. Often posterior head. REVIEW OF SYSTEMS GENERAL:No weight loss, malaise or fevers. HEENT:NNo changes in hearing or vision, no nose bleeds or other nasal problems NECK:Negative for lumps, goiter, pain and significant neck swelling RESPIRATORY: Negative for cough, wheezing. Does have SOB intermittently. States saw cardiology who felt it was not cardiac. I dont have results but per pt had ECG and ECHO and told it was fine. CARDIOVASCULAR: Negative for chest pain, or palpitations. GASTROINTESTINAL: Negative for abdominal discomfort, blood in stools or black stools or change in bowel habits GENITOURINARY: No history of dysuria, frequency or incontinence MUSCULOSKELETAL: Negative for joint pain or swelling, back pain or muscle pain. NEUROLOGIC:Negative for focal numbness or weakness, and dizziness or syncope, vision changes, speech/languag changes - EXCEPT that as per HPI above. SKIN:Negative for lesions, rash, and itching. LAB/IMAGING: Those performed since patient's last visit have been reviewed. WBC (k/uL) Date Value 05/16/2021 6.90 RBC (m/uL) Date Value 05/16/2021 4.70 Hemoglobin (g/dL) Date Value 05/16/2021 13.6 Hematocrit (%) Date Value 05/16/2021 41.6 MCV (fL) Date Value 05/16/2021 88.5 MCH (pG) Date Value 05/16/2021 28.9 MCHC (g/dL) Date Value 05/16/2021 32.7 RDW-CV (%) Date Value 05/16/2021 13.2 Platelet Count (k/uL) Date Value 05/16/2021 198 MPV (fL) Date Value 05/16/2021 10.6 Glucose (mg/dL) Date Value 05/16/2021 92 BUN (mg/dL) Date Value 05/16/2021 15 Creatinine (mg/dL) Date Value 05/16/2021 0.97 Sodium (mmol/L) Date Value 05/16/2021 137 Potassium (mmol/L) Date Value 05/16/2021 4.3 Chloride (mmol/L) Date Value 05/16/2021 100 CO2 (mmol/L) Date Value 05/16/2021 26 Protein, Total (g/dL) Date Value 05/16/2021 7.4 Albumin (g/dL) Date Value 05/16/2021 4.4 Calcium (mg/dL) Date Value 05/16/2021 9.5 Alkaline Phosphatase (U/L) Date Value 05/16/2021 93 Bilirubin, Total (mg/dL) Date Value 05/16/2021 0.4 AST (U/L) Date Value 05/16/2021 32 ALT (U/L) Date Value 05/16/2021 39 MEDICATIONS: cholecalciferol, vitamin D3, (VITAMIN D3 ORAL) Take by mouth. cyanocobalamin, vitamin B-12, (VITAMIN B-12 ORAL) Take by mouth. amLODIPine (NORVASC) 10 mg tablet Take 10 mg by mouth daily at bedtime. losartan-hydroCHLOROthiazide (HYZAAR) 100-25 mg per tablet Take 1 tablet by mouth once daily. carbidopa-levodopa CR (SINEMET CR) 50-200 mg per tablet TAKE 1 TABLET AT 8PM NIGHTLY. (Patient not taking: Reported on 08/08/2024) carbidopa-levodopa (SINEMET) 25-100 mg per tablet Take 1 tablet at 5AM, 1 tablet at 10AM and 1 tablet at 3PM. (Patient not taking: Reported on 08/08/2024) HISTORIES PAST MEDICAL HISTORY Diagnosis Date Hypertension Myocardial infarct (HCC) 2009 FAMILY HISTORY Problem Relation Age of Onset Seizures Son SOCIAL HISTORY Social History Tobacco Use Smoking status: Never Smokeless tobacco: Never Substance Use Topics Alcohol use: Yes Comment: Seldom Drug use: Never PHYSICAL EXAMINATION BP 170/90 (BP Site: Left Arm, BP Position: Sitting) Pulse 60 Resp 18 Wt 101.5 kg (223 lb 12.8oz) SpO2 98% BMI 33.05 kg/m GENERAL EXAM: General appearance: NAD, pleasant. HEENT: NC/AT, nasal congestion absent, no oral lesions, membranes moist. NECK: No masses, supple. Lungs: CTA bilaterally. CV: RRR nl S1, S2 Extr: No cyanosis, clubbing or edema. Skin: Cool to touch. NEUROLOGICAL EXAM: General: Awake, alert, oriented x3 (person,place,time), fluent, no dysarthria; comprehension, naming, repetition intact. CN: PERRL, EOMI and without nystagmus, VFF to confrontation, facial sensation and strength are normal and symmetric, hearing is intact to finger rub bilaterally, palate and tongue movements are intact and symmetric. SCM and trapezius strength normal. Motor: Strength (5/5) bilaterally (throughout extremities x4). Increased tone in RUE (cogwheel). Coordination: FNF, LISA, HTS intact. Resting tremor in RUE. No intention tremor or postural tremor. Sensation: Light touch and vibration intact throughout. No evidence of neglect. Gait: Stable with normal stride and arm swing. Assessment and Plan: ASSESSMENT/PLAN: 1. Parkinson's disease, unspecified whether dyskinesia present, unspecified whether manifestations fluctuate (HCC) - ICD9: 332.0, ICD10: G20.A1 (primary diagnosis) Patient with s/s still suggestive of PD. However, patient noting no subjective improvement in symptoms with use of Sinemet. Note as he is off Sinemet today, I cannot assess its effectiveness. Tremor still of resting nature. He is not wanting to restart PD med. Given RLS symptoms, will attempt to treat tremor with gabapentin 300 to 600mg at night (as needed and tolerated). SE and ADRs d/w pt. If no impact in tremor, can consider trial or Primidone in the future, but again, tremor more consistentwith PD. Also d/w pt surgical intervention but also explained would need evaluation by movement specialist (closest being Dr. Perry in [place]). 2. IBAN (obstructive sleep apnea) - ICD9: 327.23, ICD10: G47.33 Patient with known IBAN, and using device that appears to be about 10 years old. No recent downloads, and based on age of device, would not provide AHI. I also do not have baseline sleep study. With patient endorsing non restorative sleep, suspect IBAN not adequately treated on current PAP setting. Would like a new sleep study (split) but pt declines due to cost. Explained that we can try to treat and in addition assess with auto pap device if insurance will allow. However also explained risks with such including development of central apneas. Patient understanding and would still like to try an Auto PAP. Rx sent to [facility]. Discussed with patient: the physiology of OSAS, medical conditions associated with OSAS (DM, HTN, CAD, Depression, Stroke, Headache...) and treatment options (UPPP, Dental appliances, CPAP...). Advised patient to avoid activities that could harm self or others when tired/sleepy, including driving and/or operating heavy machinery. Encouraged weight loss, and continued compliance with other medications. 3. RLS (restless legs syndrome) - ICD9: 333.94, ICD10: G25.81 Patient endorsing RLS symptoms at night. Increasing. Was not on Sinemet long enough to expect augmentation. Will obtain Iron, TIBC and Ferritin to see if deficiency may be contributing to symptoms. Trial of gabapentin as above. 4. Shortness of breath - ICD9: 786.05, ICD10: R06.02 Subjective complaint. Reports negative cardiac workup. Pt needs to establish with PCP. Placing order. 5. Diaphoresis - ICD9: 780.8, ICD10: R61 Again, needs PCP. Cardiac workup reportedly negative per pt. - THYROID STIMULATING HORMONE - T4 FREE/FREE THYROXINE 6. Temperature intolerance - ICD9: 780.99, ICD10: R68.89 As above. - THYROID STIMULATING HORMONE - T4 FREE/FREE THYROXINE 7. Hypertension, unspecified type - ICD9: 401.9, ICD10: I10 Advised pt to comply with meds including taking today's BP meds dexter. He is not wanting to be seen in ER. Asx at present. Order placed to help establish with new PCP. Patient advised of signs of [place] or stroke and advised to go to ER (call 911) if any such symptoms. Also advised to check BP regularlywith goal for now of <140/90. If persistently elevated (parameters provided) advised pt to be seen in ER. 8. Nonintractable episodic headache, unspecified headache type - ICD9: 784.0, ICD10: R51.9 Etiology uncertain. Not daily. Concern is may be due to uncontrolled HTN. Gabapentin as above may allow for prevention of headaches. If not improving may need new imaging but chronic and present event prior to MRI brain in 2021. Jeremias Dempsey MD I spent a total of 40+ minutes on the date of the service which included preparing to see the patient, [id number] patient care, completing clinical documentation, obtaining and/or reviewing separately obtained history, performing a medically appropriate examination, counseling and educating the pa tient/family/caregiver, ordering medications, tests, or procedures, and communicating results to the patient/family/caregiver. [facility] Telephone encounter Note * Telephone Encounter - Rosi Mcnair OCCA - 08/07/2024 5:17 PM EDT Below noted. LEV Galvan [facility]05-15-2025 Miscellaneous Notes* Telephone Encounter - Rosi Mcnair OCCA - 08/07/2024 5:17 PM EDT Below noted. LEV Galvan * Telephone Encounter - Maranda Flores - 08/07/2024 4:07 PM EDT Patient returned call Could not remember where he gets supplies but will find out and will bring cpap with him to apt * Telephone Encounter - Jorge Dutton LPN - 08/07/2024 3:09 PM EDT TC to pt. LM to call office. Need to know where Pt gets his CPAP supplies and to bring his machine for his appt. Jorge Dutton LPN documented in this [facility]05-[facility]-2025 Telephone encounter Note * Telephone Encounter - Maranda Flores - 08/07/2024 4:07 PM EDT Patient returned call Could not remember where he gets supplies but will find out and will bring cpap with him to apt [facility] Work Phone: [phone] 970-984105-15-2025 Telephone encounter Note* Telephone Encounter - Jorge Dutton LPN - 08/07/2024 3:09 PM EDT TC to pt. LM to call office. Need to know where Pt gets his CPAP supplies and to bring his machine for his appt. Jorge Dutton LPN [facility]12-26-2024 Telephone encounter Note* Telephone Encounter - Richie Vu LPN - 03/20/2024 3:51 PM EST Prescription Refill Information The patient has been identified by name and date of : Yes Caregiver verified no other encounters exist for this prescription request: Yes The last office visit in the department: 02/18/24 Assessment and Plan: ASSESSMENT/PLAN: 1. Parkinson's disease, unspecified whether dyskinesia present, unspecified whether manifestations fluctuate (HCC) - ICD9: 332.0, ICD10: G20.A1 (primary diagnosis) Patient with known history and exams consistent with PD. Since last saw me was placed on trial of Selegiline but no impact on symptoms per pt. My concern is patient needing a more frequent and thus, higher peak level dopamine med - and thus feel rather than trying to treat once daily, recommend thefollowing: Trial of Sinemet 25/100mg TID (5 hours apart), followed by Sinemet CR 50/200mg 5 hours after last IR dose. Example: Sinemet 25/100mg at 5AM, 10AM and 3PM followed by Sinemet CR 50/100mg at 8PM. SE and ADRs reviewed with pt. Using long acting Sinemet at bedtime to try and suppress tremor through the nighttime hours. Encouraged continue exercise. 2. IBAN (obstructive sleep apnea) - ICD9: 327.23, ICD10: G47.33 Subjectively compliant. Need PAP data download for review. Requested from DME. 3. Frequent headaches - ICD9: 784.0, ICD10: R51.9 Resolved. 4. Tinnitus, unspecified laterality - ICD9: 388.30, ICD10: H93.19 Chronic, unchanged and for which pt has had prior workups including with ENT. 5. Hypertension, unspecified type - ICD9: 401.9, ICD10: I10 Elevated. Encouraged pt to follow up with PCP. Currently without symptoms. Jeremias Dempsey MD Does the patient have a future office visit with this provider/department: Yes 05/05/24 [facility] Requested Prescriptions Pending Prescriptions Disp Refills carbidopa-levodopa CR (SINEMET CR) 50-200 mg per tablet [Pharmacy Med Name: CARBIDOPA-LEVO ER 50-200 TAB] 90 tablet 1 Sig: TAKE 1 TABLET AT 8PM NIGHTLY. Richie Vu LPN March 20, 2024 3:51 PM [facility]12-26-2024 Miscellaneous Notes* Telephone Encounter - Richie Vu LPN - 03/20/2024 3:51 PM EST Prescription Refill Information The patient has been identified by name and date of : Yes Caregiver verified no other encounters exist for this prescription request: Yes The last office visit in the department: 02/18/24 Assessment and Plan: ASSESSMENT/PLAN: 1. Parkinson's disease, unspecified whether dyskinesia present, unspecified whether manifestations fluctuate (HCC) - ICD9: 332.0, ICD10: G20.A1 (primary diagnosis) Patient with known history and exams consistent with PD. Since last saw me was placed on trial of Selegiline but no impact on symptoms per pt. My concern is patient needing a more frequent and thus, higher peak level dopamine med - and thus feel rather than trying to treat once daily, recommend thefollowing: Trial of Sinemet 25/100mg TID (5 hours apart), followed by Sinemet CR 50/200mg 5 hours after last IR dose. Example: Sinemet 25/100mg at 5AM, 10AM and 3PM followed by Sinemet CR 50/100mg at 8PM. SE and ADRs reviewed with pt. Using long acting Sinemet at bedtime to try and suppress tremor through the nighttime hours. Encouraged continue exercise. 2. IBAN (obstructive sleep apnea) - ICD9: 327.23, ICD10: G47.33 Subjectively compliant. Need PAP data download for review. Requested from DME. 3. Frequent headaches - ICD9: 784.0, ICD10: R51.9 Resolved. 4. Tinnitus, unspecified laterality - ICD9: 388.30, ICD10: H93.19 Chronic, unchanged and for which pt has had prior workups including with ENT. 5. Hypertension, unspecified type - ICD9: 401.9, ICD10: I10 Elevated. Encouraged pt to follow up with PCP. Currently without symptoms. Jeremias Dempsey MD Does the patient have a future office visit with this provider/department: Yes 05/05/24 [facility] Requested Prescriptions Pending Prescriptions Disp Refills carbidopa-levodopa CR (SINEMET CR) 50-200 mg per tablet [Pharmacy Med Name: CARBIDOPA-LEVO ER 50-200 TAB] 90 tablet 1 Sig: TAKE 1 TABLET AT 8PM NIGHTLY. Richie Vu LPN March 20, 2024 3:51 PM documented in this encounterK[facility]12-26-2024 Telephone encounter Note * Telephone Encounter - Richie Vu LPN - 03/20/2024 8:05 AM EST Prescription Refill Information The patient has been identified by name and date of : Yes Caregiver verified no other encounters exist for this prescription request: Yes The last office visit in the department: 02/18/24 Assessment and Plan: ASSESSMENT/PLAN: 1. Parkinson's disease, unspecified whether dyskinesia present, unspecified whether manifestations fluctuate (HCC) - ICD9: 332.0, ICD10: G20.A1 (primary diagnosis) Patient with known history and exams consistent with PD. Since last saw me was placed on trial of Selegiline but no impact on symptoms per pt. My concern is patient needing a more frequent and thus, higher peak level dopamine med - and thus feel rather than trying to treat once daily, recommend thefollowing: Trial of Sinemet 25/100mg TID (5 hours apart), followed by Sinemet CR 50/200mg 5 hours after last IR dose. Example: Sinemet 25/100mg at 5AM, 10AM and 3PM followed by Sinemet CR 50/100mg at 8PM. SE and ADRs reviewed with pt. Using long acting Sinemet at bedtime to try and suppress tremor through the nighttime hours. Encouraged continue exercise. 2. IBAN (obstructive sleep apnea) - ICD9: 327.23, ICD10: G47.33 Subjectively compliant. Need PAP data download for review. Requested from DME. 3. Frequent headaches - ICD9: 784.0, ICD10: R51.9 Resolved. 4. Tinnitus, unspecified laterality - ICD9: 388.30, ICD10: H93.19 Chronic, unchanged and for which pt has had prior workups including with ENT. 5. Hypertension, unspecified type - ICD9: 401.9, ICD10: I10 Elevated. Encouraged pt to follow up with PCP. Currently without symptoms. Jeremias Dempsey MD Does the patient have a future office visit with this provider/department: Yes 05/05/24 [facility] Requested Prescriptions Pending Prescriptions Disp Refills carbidopa-levodopa (SINEMET 25-100) 25-100 mg per tablet [Pharmacy Med Name: CARBIDOPA-LEVODOPA 25-100 TAB] 270 tablet 1 Sig: TAKE 1 TABLET BY MOUTH AT 5AM, 1 TABLET AT 10AM AND 1 TABLET AT 3PM. Richie Vu LPN March 20, 2024 8:05 AM [facility]12-26-2024 Miscellaneous Notes* Telephone Encounter - Richie Vu LPN - 03/20/2024 8:05 AM EST Prescription Refill Information The patient has been identified by name and date of : Yes Caregiver verified no other encounters exist for this prescription request: Yes The last office visit in the department: 02/18/24 Assessment and Plan: ASSESSMENT/PLAN: 1. Parkinson's disease, unspecified whether dyskinesia present, unspecified whether manifestations fluctuate (HCC) - ICD9: 332.0, ICD10: G20.A1 (primary diagnosis) Patient with known history and exams consistent with PD. Since last saw me was placed on trial of Selegiline but no impact on symptoms per pt. My concern is patient needing a more frequent and thus, higher peak level dopamine med - and thus feel rather than trying to treat once daily, recommend thefollowing: Trial of Sinemet 25/100mg TID (5 hours apart), followed by Sinemet CR 50/200mg 5 hours after last IR dose. Example: Sinemet 25/100mg at 5AM, 10AM and 3PM followed by Sinemet CR 50/100mg at 8PM. SE and ADRs reviewed with pt. Using long acting Sinemet at bedtime to try and suppress tremor through the nighttime hours. Encouraged continue exercise. 2. IBAN (obstructive sleep apnea) - ICD9: 327.23, ICD10: G47.33 Subjectively compliant. Need PAP data download for review. Requested from DME. 3. Frequent headaches - ICD9: 784.0, ICD10: R51.9 Resolved. 4. Tinnitus, unspecified laterality - ICD9: 388.30, ICD10: H93.19 Chronic, unchanged and for which pt has had prior workups including with ENT. 5. Hypertension, unspecified type - ICD9: 401.9, ICD10: I10 Elevated. Encouraged pt to follow up with PCP. Currently without symptoms. Jeremias Dempsey MD Does the patient have a future office visit with this provider/department: Yes 05/05/24 [facility] Requested Prescriptions Pending Prescriptions Disp Refills carbidopa-levodopa (SINEMET 25-100) 25-100 mg per tablet [Pharmacy Med Name: CARBIDOPA-LEVODOPA 25-100 TAB] 270 tablet 1 Sig: TAKE 1 TABLET BY MOUTH AT 5AM, 1 TABLET AT 10AM AND 1 TABLET AT 3PM. Richie Vu LPN March 20, 2024 8:05 AM documented in this encounterK[facility]11-27-2024 Telephone encounter Note * Telephone Encounter - Richie Vu LPN - 02/20/2024 9:15 AM EST Called patient, advised patient of message below. Patient verbalized understanding. Patient states he will do that. Richie Vu LPN February 20, 2024 9:16 AM [facility]11-27-2024 Miscellaneous Notes* Telephone Encounter - Richie Vu LPN - 02/20/2024 9:15 AM EST Called patient, advised patient of message below. Patient verbalized understanding. Patient states he will do that. Richie Vu LPN February 20, 2024 9:16 AM * Telephone Encounter - Christie Hare RN - 02/19/2024 11:20 AM EST Tatiana Breaux from Dr. Bahena's office calls and states that office received request for compliancereport on patient's CPAP. Tatiana reports that patient has an older Icon CPAP machine. They would need the chip from the machine to get compliance report. Patient was set up with machine in 2014. Christie Hare RN documented in this encounterK[facility]11-26-2024 Telephone encounter Note * Telephone Encounter - Christie Hare RN - 02/19/2024 11:20 AM EST Tatiana Breaux from Dr. Bahena's office calls and states that office received request for compliancereport on patient's CPAP. Tatiana reports that patient has an older Icon CPAP machine. They would need the chip from the machine to get compliance report. Patient was set up with machine in 2014. Christie Hare, RN [facility]11-25-2024 NoteHNO ID: [id number] Author: JEREMIAS DEMPSEY JR, MD Service: ? Author Type: Physician Type: Progress Notes Filed: 02/18/2024 16:08 Note Text: ESTABLISHED PATIENT VISIT CHIEF COMPLAINT: Follow Up HISTORY OF PRESENT ILLNESS: Melanie Navarro is a 63 year old male, BMI 33.37 kg/m2 with a PMH significant for and per last office note with Balbir Choe CNP on 06/08/22: R25.1 Tremor (primary encounter diagnosis) Comment: Patient previously seen for RUE tremor with exam findings suggestive of PD. Previous exam noting resting tremor, decreased RUE swing, and increased tone of RUE. Improvement in exam after initiation of Requip XL, however, RUE tremor still present intermittently. Requip dose was further increased to 6mg daily (pt prefers once daily dosing). Today, he reports tremor still present at rest. Exam unremarkable with exception of intermittent RUE resting tremor as well as tremor present with ambulation. As tremor is persistent and pt reporting continued fatigue as well (see concern below) will place consult to movement disorder clinic to evaluate symptoms and provide further recommendations for medication and treatment. G47.33 IBAN (obstructive sleep apnea) R53.83 Other fatigue Comment: Pt prescribed PAP by outside provider. Download not available at time of previous appointment. Download obtained in interim, however, appears information is from 10/2021. Appears PAP was used 03/24 days. However, recent data unavailable and pt reports compliance with device. Note, lab work from [facility] reviewed (B12, TSH, TIBC/iron/ferritin, Vit D, cortisol, A1C WNL and low free testosterone). He still notes increased fatigue and brain fog at time of OV today. Discussed possible contributing factors including IBAN and poor sleep, increased stress/anxiety, and medications used to treat PD. Uncertain to what degree any or all of the aforementioned factors are contributing to sx. Have asked that he follow up with his sleep medicine provider as well as his PCP. R51.9 Frequent headaches I10 Hypertension, unspecified type Comment: Previously reporting frequent headaches with headache occurring roughly four days per week. Located to either R or L hemicrania and associated with phonophobia. No photophobia or visual changes. BP elevated at time of last OV and discussed follow up with PCP for BP management. Today, headaches have improved and mostly only present when not using PAP. However, BP remains elevated and again discussed follow up with PCP to address. Will defer medication for APONTE at this time given improvement. H93.19 Tinnitus, unspecified laterality Comment: As noted at previous appointment: history of tinnitus with past workup by ENT roughly 8-10 years ago. Symptoms remain bothersome and as medications would have limited effect on symptoms referral was placed to tinnitus management clinic. He was previously unable to schedule and new consult entered at time of appt today. Pt has been following with Dr. Benitez over the past year. Now transitioning back to me. I have no PAP data download for review. Through Dr. Page. Patient concerned resting tremor getting worse - RUE. States also feels like the RUE is getting stiff. No falls. Issues getting out of a chair or out of furniture. More difficulties with daily activities such as climbing up stairs and feels legs are just not as strong. Pt did not feel Requip XL helped. Takes while to get going in the AM. No change in voice. +Constipation. +RBD type symptoms - rare but history of it. No issues falling asleep, but when wakes has difficulties going back to sleep because tremor starts. Using PAP nightly. No issues with PAP. No headaches. Tinnitus unchanged. BP elevalted. REVIEW OF SYSTEMS GENERAL:No weight loss, malaise or fevers. HEENT:Negative for frequent or significant headaches, No changes in hearing or vision, no nose bleeds or other nasal problems NECK:Negative for lumps, goiter, pain and significant neck swelling RESPIRATORY: Negative for cough, wheezing or shortness of breath. CARDIOVASCULAR: Negative for chest pain, leg swelling or palpitations. GASTROINTESTINAL: Negative for abdominal discomfort, blood in stools or black stools or change in bowel habits GENITOURINARY: No history of dysuria, frequency or incontinence MUSCULOSKELETAL: Negative for joint pain or swelling, back pain or muscle pain. NEUROLOGIC:Negative for focal numbness or weakness, headaches and dizziness or syncope, vision changes, speech/languag changes - EXCEPT that as per HPI above. SKIN:Negative for lesions, rash, and itching. PSYCHIATRIC: Negative for sleep disturbance, mood disorder and recent psychosocial stressors. HEMATOLOGIC/LYMPHATIC/IMMUNOLOGIC:Negative for prolonged bleeding, bruising easily or swollen nodes. ENDOCRINE: Negative for cold or heat intolerance, polyuria, polydipsia and goiter. The remainder of the ROS was reviewed and is nega (more content not included)... [facility]11-25-2024 History of Present illness Narrative* Jeremias Dempsey Jr., MD - 02/18/2024 3:22 PM EST ESTABLISHED PATIENT VISIT CHIEF COMPLAINT: Follow Up HISTORY OF PRESENT ILLNESS: Melanie Navarro is a 63 year old male, BMI 33.37 kg/m2 with a PMH significant for and per last office note with Balbir Choe CNP on 06/08/22: R25.1 Tremor (primary encounter diagnosis) Comment: Patient previously seen for RUE tremor with exam findings suggestive of PD. Previous exam noting resting tremor, decreased RUE swing, and increased tone of RUE. Improvement in exam after initiation of Requip XL, however, RUE tremor still present intermittently. Requip dose was further increased to 6mg daily (pt prefers once daily dosing). Today, he reports tremor still present at rest. Exam unremarkable with exception of intermittent RUE resting tremor as well as tremor present with ambulation. As tremor is persistent and pt reporting continued fatigue as well (see concern below) will place consult to movement disorder clinic to evaluate symptoms and provide further recommendationsfor medication and treatment. G47.33 IBAN (obstructive sleep apnea) R53.83 Other fatigue Comment: Pt prescribed PAP by outside provider. Download not available at time of previous appointment. Download obtained in interim, however, appears information is from 10/2021. Appears PAP was used03/24 days. However, recent data unavailable and pt reports compliance with device. Note, lab work from [facility] reviewed (B12, TSH, TIBC/iron/ferritin, Vit D, cortisol, A1C WNL and low free testosterone). He still notes increased fatigue and brain fog at time of OV today. Discussed possible contributing factors including IBAN and poor sleep, increased stress/anxiety, and medications used to treat PD. Uncertain to what degree any or all of the aforementioned factors are contributing to sx. Have askedthat he follow up with his sleep medicine provider as well as his PCP. R51.9 Frequent headaches I10 Hypertension, unspecified type Comment: Previously reporting frequent headaches with headache occurring roughly four days per week. Located to either R or L hemicrania and associated with phonophobia. No photophobia or visual changes. BP elevated at time of last OV and discussed follow up with PCP for BP management. Today, headaches have improved and mostly only present when not using PAP. However, BP remains elevated and again discussed follow up with PCP to address. Will defer medication for APONTE at this time given improvement. H93.19 Tinnitus, unspecified laterality Comment: As noted at previous appointment: history of tinnitus with past workup by ENT roughly 8-10years ago. Symptoms remain bothersome and as medications would have limited effect on symptoms referral was placed to tinnitus management clinic. He was previously unable to schedule and new consult entered at time of appt today. Pt has been following with Dr. Benitez over the past year. Now transitioning back to me. I have no PAP data download for review. Through Dr. Page. Patient concerned resting tremor getting worse - RUE. States also feels like the RUE is getting stiff. No falls. Issues getting out of a chair or out of furniture. More difficulties with daily activities such as climbing up stairs and feels legs are just not as strong. Pt did not feel Requip XL helped. Takes while to get going in the AM. No change in voice. +Constipation. +RBD type symptoms - rare but history of it. No issues falling asleep, but when wakes has difficulties going back to sleep because tremor starts. Using PAP nightly. No issues with PAP. No headaches. Tinnitus unchanged. BP elevalted. REVIEW OF SYSTEMS GENERAL:No weight loss, malaise or fevers. HEENT:Negative for frequent or significant headaches, No changes in hearing or vision, no nose bleeds or other nasal problems NECK:Negative for lumps, goiter, pain and significant neck swelling RESPIRATORY: Negative for cough, wheezing or shortness of breath. CARDIOVASCULAR: Negative for chest pain, leg swelling or palpitations. GASTROINTESTINAL: Negative for abdominal discomfort, blood in stools or black stools or change in bowel habits GENITOURINARY: No history of dysuria, frequency or incontinence MUSCULOSKELETAL: Negative for joint pain or swelling, back pain or muscle pain. NEUROLOGIC:Negative for focal numbness or weakness, headaches and dizziness or syncope, vision changes, speech/languag changes - EXCEPT that as per HPI above. SKIN:Negative for lesions, rash, and itching. PSYCHIATRIC: Negative for sleep disturbance, mood disorder and recent psychosocial stressors. HEMATOLOGIC/LYMPHATIC/IMMUNOLOGIC:Negative for prolonged bleeding, bruising easily or swollen nodes. ENDOCRINE: Negative for cold or heat intolerance, polyuria, polydipsia and goiter. The remainder of the ROS was reviewed and is negative. LAB/IMAGING: Those performed since patient's last visit have been reviewed. WBC (k/uL) Date Value 05/16/2021 6.90 RBC (m/uL) Date Value 05/16/2021 4.70 Hemoglobin (g/dL) Date Value 05/16/2021 13.6 Hematocrit (%) Date Value 05/16/2021 41.6 MCV (fL) Date Value 05/16/2021 88.5 MCH (pG) Date Value 05/16/2021 28.9 MCHC (g/dL) Date Value 05/16/2021 32.7 RDW-CV (%) Date Value 05/16/2021 13.2 Platelet Count (k/uL) Date Value 05/16/2021 198 MPV (fL) Date Value 05/16/2021 10.6 Glucose (mg/dL) Date Value 05/16/2021 92 BUN (mg/dL) Date Value 05/16/2021 15 Creatinine (mg/dL) Date Value 05/16/2021 0.97 Sodium (mmol/L) Date Value 05/16/2021 137 Potassium (mmol/L) Date Value 05/16/2021 4.3 Chloride (mmol/L) Date Value 05/16/2021 100 CO2 (mmol/L) Date Value 05/16/2021 26 Protein, Total (g/dL) Date Value 05/16/2021 7.4 Albumin (g/dL) Date Value 05/16/2021 4.4 Calcium (mg/dL) Date Value 05/16/2021 9.5 Alkaline Phosphatase (U/L) Date Value 05/16/2021 93 Bilirubin, Total (mg/dL) Date Value 05/16/2021 0.4 AST (U/L) Date Value 05/16/2021 32 ALT (U/L) Date Value 05/16/2021 39 MEDICATIONS: cholecalciferol, vitamin D3, (VITAMIN D3 ORAL) Take by mouth. cyanocobalamin, vitamin B-12, (VITAMIN B-12 ORAL) Take by mouth. amLODIPine (NORVASC) 10 mg tablet Take 10 mg by mouth daily at bedtime. losartan-hydroCHLOROthiazide (HYZAAR) 100-25 mg per tablet Take 1 tablet by mouth once daily. selegiline (ELDEPRYL) 5 mg capsule Take 1 capsule by mouth twice daily before meals. (Patient not taking: Reported on 02/18/2024) HISTORIES PAST MEDICAL HISTORY Diagnosis Date Hypertension Myocardial infarct (HCC) 2008 FAMILY HISTORY Problem Relation Age of Onset Seizures Son SOCIAL HISTORY Social History Tobacco Use Smoking status: Never Smokeless tobacco: Never Substance Use Topics Alcohol use: Yes Comment: Seldom Drug use: Never PHYSICAL EXAMINATION BP 174/101 (BP Site: Left Arm, BP Position: Sitting) Pulse (!) 59 Wt 102.5 kg (226 lb) SpO2 100% BMI 33.37 kg/m GENERAL EXAM: General appearance: NAD, pleasant. HEENT: NC/AT, nasal congestion absent, no oral lesions, membranes moist. NECK: No masses, supple. Lungs: CTA bilaterally. CV: RRR nl S1, S2 Extr: No cyanosis, clubbing or edema. Skin: Cool to touch. NEUROLOGICAL EXAM: General: Mild masked facies. Awake, alert, oriented x3 (person,place,time), fluent, no dysarthria; comprehension, naming, repetition intact. No hypophonia. CN: PERRL, EOMI and without nystagmus, VFF to confrontation, facial sensation and strength are normal and symmetric, hearing is intact, palate and tongue movements are intact and symmetric. SCM and trapezius strength normal. Motor: Normal bulk and strength (5/5) bilaterally (throughout extremities x4). Tone increased in RUE and of cogwheel nature. Coordination: FNF mildly impaired in RUE, LISA symmetric, HTS intact. Resting tremor in R hand and noted when ambulating. Sensation: LT, vibration, temperature intact throughout. No evidence of neglect. Gait: Narrow based and stable with normal stride but impaired armswing on R. Romberg normal. No significant retropulsion. Assessment and Plan: ASSESSMENT/PLAN: 1. Parkinson's disease, unspecified whether dyskinesia present, unspecified whether manifestations fluctuate (HCC) - ICD9: 332.0, ICD10: G20.A1 (primary diagnosis) Patient with known history and exams consistent with PD. Since last saw me was placed on trial of Selegiline but no impact on symptoms per pt. My concern is patient needing a more frequent and thus, higher peak level dopamine med - and thus feel rather than trying to treat once daily, recommend thefollowing: Trial of Sinemet 25/100mg TID (5 hours apart), followed by Sinemet CR 50/200mg 5 hours after last IR dose. Example: Sinemet 25/100mg at 5AM, 10AM and 3PM followed by Sinemet CR 50/100mg at 8PM. SE and ADRs reviewed with pt. Using long acting Sinemet at bedtime to try and suppress tremor through the nighttime hours. Encouraged continue exercise. 2. IBAN (obstructive sleep apnea) - ICD9: 327.23, ICD10: G47.33 Subjectively compliant. Need PAP data download for review. Requested from DME. 3. Frequent headaches - ICD9: 784.0, ICD10: R51.9 Resolved. 4. Tinnitus, unspecified laterality - ICD9: 388.30, ICD10: H93.19 Chronic, unchanged and for which pt has had prior workups including with ENT. 5. Hypertension, unspecified type - ICD9: 401.9, ICD10: I10 Elevated. Encouraged pt to follow up with PCP. Currently without symptoms. Jeremias Dempsey MD I spent a total of 40+ minutes on the date of the service which included preparing to see the patient, [id number] patient care, completing clinical documentation, obtaining and/or reviewing separately obtained history, performing a medically appropriate examination, counseling and educating the pa tient/family/caregiver, ordering medications, tests, or procedures, communicating with other HCPs (not separately reported), and communicating results to the patient/family/caregiver. [facility] Nurse Note* Richie Vu LPN - 02/18/2024 3:01 PM EST C/o parkinson progressing. Would like medication to relieve tremor today. Tremor keeps patient fromsleeping. Richie Vu LPN February 18, 2024 3:05 PM [facility]11-25-2024 Nurse Note* Richie Vu LPN - 02/18/2024 3:01 PM EST C/o parkinson progressing. Would like medication to relieve tremor today. Tremor keeps patient fromsleeping. Richie Vu LPN February 18, 2024 3:05 PM documented in this [facility]04-[facility]-2024 Miscellaneous Notes* Telephone Encounter - Patito Celis OCCA - 06/25/2023 11:33 AM EDT Received insurance denial from [employer]. Reason for denying request is not medically necessary. Reference # [id number] Placed on [employer]'s desk for review. documented in this encounterK[facility]08-18-2023 Instructions* Patient Instructions* Jimmy Benitez MD - 11/10/2022 3:49 PM EDT Lets continue things the same today. Try to stay physically active. documented in this encounterK[facility]08-18-2023 History of Present illness Narrative* Jimmy Benitez MD - 11/10/2022 3:18 PM EDT FOLLOW UP NOTE Subjective Melanie Navarro is a 62 year old male who presents for follow up. Here with his . CC: PD Summary of prior care: Right-handed male with a history of thrombocytopenia and migraine who presents for evaluation of tremor / PD. His examination demonstrates mild right bradykinesia and mild-mod RUE rest tremor. He has decreased smell, constipation, and RBD. His presentation is consistent with t remor predominant PD. We discussed PD. I explained the pathophysiology, clinical course, and treatment approach. The requip may be causing side effects (swelling, sleepiness) and has unclear benefit,will taper him off over a couple weeks. Could just watch without medication or if bothered could try one of several other meds which we discussed, possibly selegiline for stimulant benefit. Explainedthe importance of exercise in maintaining mobility. HPI Current Issues 1. PD - Has been on selegiline 5 mg BID for the past month or so - Maybe helping a bit, not a huge benefit, can tell when he misses it - His thinks it might be a little worse - Work is extremely stressful - Having swelling in his ankles for a couple months 2. Constipation - Not presently 3. Sleep - Has IBAN, follows with Dr. Dempsey, on CPAP - Despite use of CPAP though has always had fatigue - Not clear that he is sleeping worse with the selegiline - Not sleeping well at night, gets up at 0430, tries to go to bed by 2100, is tired by the end of the week - Occasional dream behavior 4. Misc - Left eye has been drooping more, past 5-10 years present - Legs feel tired - No shortness of breath - No double vision Current Outpatient Medications Medication Sig Dispense Refill cholecalciferol, vitamin D3, (VITAMIN D3 ORAL) Take by mouth. cyanocobalamin, vitamin B-12, (VITAMIN B-12 ORAL) Take by mouth. selegiline (ELDEPRYL) 5 mg capsule Take 1 capsule by mouth twice daily before meals. 60 capsule 5 amLODIPine (NORVASC) 10 mg tablet Take 10 mg by mouth daily at bedtime. losartan-hydroCHLOROthiazide (HYZAAR) 100-25 mg per tablet Take 1 tablet by mouth once daily. No current facility-administered medications for this visit. REVIEW OF SYSTEMS His ROS was positive for that mentioned in the HPI. Otherwise a 10-point ROS was completed and was negative. Objective OBJECTIVE 11/10/22 1520 BP: 121/67 BP Site: Right Arm BP Position: Sitting BP Cuff Size: Regular Adult Pulse: 73 SpO2: 95% Weight: 108.9 kg (240 lb) Height: 175.3 cm (5' 9) General: General Appearance: Well appearing, alert, in no acute distress, well-hydrated, well nourished. Head: Normocephalic Neck: Supple Heart: RRR Neurologic Exam: Mental Status: He is alert. He is fully oriented. Attention is intact. Memory is intact. Language shows normal comprehension and fluency. Affect is appropriate. Cranial Nerves: PERRL. Extraocular movements show full and smooth pursuits. No nystagmus. Visual izquierdo are full to confrontation. Left eyelid ptosis. Facial sensation is intact. Hearing is intact toconversation. There is minimal hypomimia. There is minimal hypophonia. There is no dysarthria. Tongue is midline. Palate elevates symmetrically. Shoulder shrug is normal. Motor: Muscle bulk is normal. Muscle power is full. RUE rest tremor, mod / intermittent. Subtle right bradykinesia. Rigidity with activation in RUE. Coordination: Finger to nose is smooth without ataxia. Gait/station: He can stand from a chair without the use of his arms. Posture is minimally stooped. Station is narrow. Stride length is normal. Arm swing is mildly reduced in right hand. Right hand tremor during gait. DATA REVIEW Actual films/image/tracing reviewed and summarized as follows: n/a Old records reviewed and summarized as follows: MRI Brain 05/24/21 normal Assessment/Plan ASSESSMENT & PLAN: Melanie Navarro is a 62 year old right-handed male with a history of thrombocytopenia and migraine who presents for follow up of tremor predominant PD. His examination demonstrates mild right bradykinesia and mild-mod RUE rest tremor. 1. PD - Symptoms still mild today - Unclear if selegiline helping, has been a month, decided to continue for now - Fatigue a long standing concern not clearly PD-related, was supposed to have another sleep study to see how his IBAN is doing which is reasonable - Encouraged physical activity Follow-up: 6 months Risks & Side Effects of Newly Prescribed Medication, Discussed with Patient: n/a Jimmy Benitez MD [facility] documented in this encounterK[facility]04-17-2023 Instructions* Patient Instructions* Jimmy Benitez MD - 07/10/2022 2:47 PM EDT 1. Taper off the Requip - decrease to two 2 mg pills once a day for a week, then one 2 mg pill oncea day for a week, then stop. I'm hoping this improves the fatigue / sleepiness and swelling. 2. Try to increase physical activity to a goal of 3 hours of aerobic exercise a week. 3. We could consider another medication depending on how you feel off of Requip (selegiline, artane, amantadine, carbidopa/levodopa) documented in this encounterK[facility]04-17-2023 History of Present illness Narrative* Jimmy Benitez MD - 07/10/2022 1:52 PM EDT NEW PATIENT EVALUATION Subjective HPI Melanie Navarro is a 62 year old right-handed male who presents for evaluation of tremor / PD. Bailee Choe CNP is the referring provider. Dr. Devika Arcos MD is the PCP. He has been dealing with tremor of the right hand for around two years. The tremor is present primarily when he is relaxed. The tremor seems to bother him more when he is stressed, more noticeable atwork, other people notice it. His notes that his right forearm seems stiff. He has noticed theright hand seems swollen. Difficulty cleaning his contacts with his right hands due to the dexterity. No problems with gait. Handwriting is has always been bad and hasn't changed. He has low platelets so was on steroids for a couple rounds, legs have been swollen since then. Sense of smell mildly diminished. He gets occasional constipation, tries to eat natural fibers which helps. Sometimes will move in his sleep, more over the past couple weeks, will be moving his arms or legs. Always seems tired. Gets up for 0430 for work, starts at 6. Having trouble driving because of beingso exhausted. Has IBAN and has CPAP which he uses faithfully. Wants to work out but is exhausted. 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 Hoping to work another 5 years. Sometimes has difficulty focusing on things, organizing his thoughts. No hallucinations. Uncommonly LH with standing. Little bit of depression. Seems a little less patient, more irritable. Ropinirole started 06/2021, initially 2 mg then 4 now 6 mg. Marginal benefit. Possible side effects as discussed above. No clear impulse control symptoms. Weight gain coinciding with steroid use. Forgot to take dose Sat night and maybe was a touch worse Sun. Medications: Current Outpatient Medications Medication Sig Dispense Refill amLODIPine (NORVASC) 10 mg tablet Take 10 mg by mouth daily at bedtime. rOPINIRole ER (REQUIP XL) 6 mg tablet TAKE 1 TABLET BY MOUTH EVERY DAY 30 tablet 2 losartan-hydroCHLOROthiazide (HYZAAR) 100-25 mg per tablet Take 1 tablet by mouth once daily. albuterol HFA (PROVENTIL HFA, VENTOLIN HFA) 90 mcg/actuation inhaler Inhale 2 Puffs as instructed every 4 hours as needed. Pt aware insurance requires prior auth- will pay cruz with [employer]. (Patient not taking: No sig reported) 1 Each 0 benzonatate (TESSALON PERLES) 100 mg capsule Take 1-2 capsules by mouth three times daily as needed. (Patient not taking: No sig reported) 30 capsule 0 carvedilol (COREG) 12.5 mg tablet Take 12.5 mg by mouth once daily. (Patient not taking: Reported on 07/10/2022) aspirin, enteric coated (ASPIRIN, ENTERIC COATED) 81 mg EC tablet q 24 HR. (Patient not taking: No sig reported) No current facility-administered medications for this visit. ROS ROS: His ROS was positive for that mentioned in the HPI. Otherwise a 10-point ROS was completed andwas negative. ALLERGIES No Known Allergies Past Medical History: PAST MEDICAL HISTORY Diagnosis Date Hypertension Myocardial infarct (HCC) 2008 Family History: No family history of PD Social History: Social History Tobacco Use Smoking status: Never Smokeless tobacco: Never Substance Use Topics Alcohol use: Yes Comment: Seldom Drug use: Never Never a heavy drinker Works at [employer] in contractor sales Son lives with them now but moving out soon Objective 07/10/22 1351 BP: 145/84 Pulse: 68 Temp: 36.3 C (97.4 F) TempSrc: Tympanic SpO2: 96% Weight: 112.6 kg (248 lb 3.2 oz) Physical Examination General Appearance: Well appearing, alert, in no acute distress, well-hydrated, well nourished. Head: Normocephalic, no masses, lesions, tenderness or abnormalities Neck: Supple Heart: RRR Peripheral Pulses: Normal Neurologic Examination Mental Status: He is alert. He is fully oriented. Attention is intact. Recent and remote memory is intact. Language shows normal comprehension and fluency. Praxis is normal. Affect is appropriate. Cranial Nerves: Extraocular movements show full and smooth pursuits. No nystagmus. Visual izquierdo are full to confrontation. Facial sensation is intact. Facial activation is symmetric. Hearing is intact to conversation. There is minimal hypomimia. There is minimal hypophonia. There is no dysarthria.Tongue is midline. Palate elevates symmetrically. Shoulder shrug is normal. Motor: Muscle bulk is normal. Muscle power is full. RUE rest tremor. Subtle right bradykinesia. Only noticed rigidity with activation in RLE. Sensory: Vibration decreased right foot Reflex: Biceps and brachioradialis is 2+ bilaterally. Patellar reflex 2+ bilaterally. Ankle jerks 2+ bilaterally. Coordination: Finger to nose is smooth without ataxia. Gait/station: He can stand from a chair without the use of his arms. Posture is minimally stooped. Station is narrow. Stride length is normal. Arm swing is mildly reduced in right hand. MDS-UPDRS Motor subscale condition of exam Medication Off/On/Naiive ON Time of UPDRS 1425 Time of Last Medication 2000 Last Medication Taken Requip XL DBS Right N/A DBS Left N/A MDS-UPDRS Motor subscale scores Speech 1-Slight. Loss of modulation, diction or volume, but still all words easy to understand. Facial Expression 1-Slight. Minimal masked facies manifested only by decreased frequency of blinking. Rigidity Neck 0-Normal. No rigidity. Rigidity Right Upper Extremity 0-Normal. No rigidity. Rigidity Left Upper Extremity 0-Normal. No rigidity. Rigidity Right Lower Extremity 1-Slight. Rigidity only detected with activation maneuver. Rigidity Left Lower Extremity 0-Normal. No rigidity. Finger Taps Right 1-Slight. a) the regular rhythm is broken with one or two interruptions or hesitations of the tapping movement, b) slight slowing, c) the amplitude decrements near the end of the 10taps. Finger Taps Left 0-Normal. No problems. Hand Movements Right 1-Slight. a) the regular rhythm is broken with one or two interruptions or hesitations of the movement, b) slight slowing, c) the amplitude decrements near the end of the task. Hand Movements Left 0-Normal. No problem. Arm Movements Right 0-Normal. No problems. Arm Movements Left 0-Normal. No problems. Toe Taps Right 1-Slight. a) the regular rhythm is broken with one or two interruptions or hesitations of the tapping movement, b) slight slowing, c) the amplitude decrements near the end of the ten taps. Toe Taps Left 0-Normal. No problem. Leg Agility Right 0-Normal. No problems. Leg Agility Left 0-Normal. No problems. Arise From Chair 0-Normal. No problems. Able to arise quickly without hesitation. Gait 1-Slight. Independent walking with minor gait impairment. Gait Freezing 0-Normal. No freezing. Posture Stability 0-Normal. No problems: recovers with one or two steps. Posture 1-Slight. Not quite erect, but posture could be normal for older person. Body Bradykinesia 1-Slight. Slight global slowness and poverty of spontaneous movements. Postural Tremor Hand Right 0-Normal. No tremor. Postural Tremor Hand Left 0-Normal. No tremor. Kinetic Tremor Right 0-Normal. No tremor. Kinetic Tremor Left 0-Normal. No tremor. Rest Tremor Amplitude Right Upper Extremity 2-Mild. > 1 cm but < 3 cm in maximal amplitude. Rest Tremor Amplitude Left Upper Extremity 0-Normal. No tremor. Rest Tremor Amplitude Right Lower Extremity 0-Normal. No tremor. Rest Tremor Amplitude Right Lower Extremity 0-Normal. No tremor. Rest Tremor Amplitude Lip/Jaw 0-Normal. No tremor. Rest Tremor Constancy 2-Mild. Tremor at rest is present 26-50% of the entire examination period. MDS-UPDRS Motor subscale totals Left Total 0 Right Total 6 Midline Total 5 Tremor Total / 10 4 PIGD Total / 3 1 Overall Total 13 % Change Compared to Last Filed Total DATA REVIEWED Actual films/image/tracing reviewed and summarized as follows: MRI Brain 05/24/21 normal Old records reviewed and summarized as follows: Reviewed prior neuro records detailing treatment with Requip Assessment/Plan Assessment & Plan: Melanie Navarro is a 62 year old right-handed male with a history of thrombocytopenia and migraine who presents for evaluation of tremor / PD. His examination demonstrates mild right bradykinesia andmild-mod RUE rest tremor. He has decreased smell, constipation, and RBD. His presentation is consistent with tremor predominant PD. We discussed PD. I explained the pathophysiology, clinical course, and treatment approach. The requip may be causing side effects (swelling, sleepiness) and has unclear benefit, will taper him off over a couple weeks. Could just watch without medication or if bothered could try one of several othermeds which we discussed, possibly selegiline for stimulant benefit. Explained the importance of exercise in maintaining mobility. He should return to see me in 4 months. I spent 45 minutes with the patient, >50% of that time was devoted to counseling and coordination of care regarding the above issues. Jimmy Benitez MD [facility] documented in this encounterK[facility]03-16-2023 History of Present illness Narrative* Bailee Choe, MINE ANALYST.CLINICAL QUALITY ASSURANCE ASSOCIATE - 06/08/2022 4:30 PM EDT Images from the original note were not included. [facility] Follow-up Visit Follow-up note June 08, 2022 HPI: Mr. Navarro presents today for a follow-up visit. Per his previous visit on 12/29/21: R25.1 Tremor (primary encounter diagnosis) Comment: Patient previously seen for RUE tremor with exam findings suggestive of PD. Pt with resting tremor, decreased RUE swing, and increased tone of RUE. He was previously started on Requip XL with titration up to 4mg daily (prefers once daily dosing). At appointment today he denies SE but againreports minimal change in symptoms. Exam today without rigidity of RUE but still noting slightly dec reased RUE swing and intermittent RUE tremor. Again discussed options today such as increasing medication verses transitioning to alternative medication. Did discuss that despite increasing Requip tremor may not completely resolve and would assess for further improvement in arm swing and no furtherworsening or changes. At this time he would like to increase dose to 6mg Requip XL. If no improvement after further increase can then consider alternative medication. Recommend continuing to stay active and obtain adequate exercise within limitations. G47.33 Obstructive sleep apnea R53.83 Other fatigue Comment: Pt with history of IBAN. Reporting increased fatigue and brain fog. He reports frequent napping as well. He has a CPAP which he estimates he has had for roughly eight years. Uncertain when the last time his PAP settings were reviewed. Will attempt to obtain download once determining DME as pt is uncertain which one he uses. In addition, will obtain recent labs completed at [facility] to determine if additional blood work should be completed to further evaluate for cause of fatigue. R51.9 Frequent headaches I10 Hypertension, unspecified type Comment: Pt reporting frequent headaches roughly four days per week. Headaches typically located toeither R or L hemicrania and usually occur at the end of a work day. No associated photophobia or visual changes, but does note phonophobia. He does feel increased stress at work can contribute to headaches. In addition, BP in office today was 176/94. Pt reports inconsistent administration of BP medications. Recommend antihypertensive compliance and follow up with PCP for management. Will also review PAP and IBAN sx as above which may lead to further improvement in headaches. If headaches persist despite control of BP and improvement in sleep, will consider daily headache preventative. H93.13 Tinnitus, bilateral Comment: History of tinnitus with past workup by ENT roughly 8-10 years ago. Pt reports tinnitus isbothersome and has difficulty hearing at times. Discussed that medications would have limited effect on sx and referral offered to tinnitus management clinic. Consult placed. Tremor has been about the same. Notices tremor mostly at night when laying down to go to sleep. Worse with stress; job is stressful. States that he has a platelet disorder. Lately legs have been red. Was given a steroid regimen. States level has continued to drop. Still on steroids at this time. Feels jittery because of this. States he is still always tired. Feels tired even with 9 hours of sleep. Does wake up at 4:30am. Does have trouble falling back asleep due to stress/anxiety when waking up at night. Hasn't been good at concentrating and focusing. Has been following with Dr. Gaviria. States he uses his PAP every night or else he will get a terrible headache. Has not had follow up with his PCP. States fatigue has possibly worsened with increase in Requip. Has a hard time staying awake when driving at times. BP still elevated. Has not had adjustment to BP medications. Headaches have not been bad. If falling asleep without his PAP will get a headache. Headaches at the end of the day after work have not been as bad. No tremor to L arm, legs, head. Feels stiffness to R forearm. Had tennis elbow in the fall from splitting wood. No jerky movements. Possibly slightly slower. Sometimes tenses his arms to prevent the tremor. Denies n/t. Sometimes will catch his heel every now and then. No falls. Some difficulty with buttons. Handwriting still terrible. No changes in taste or smell, bladder. Experiencing some constipation. Denies acting out dreams or yelling out in his sleep. His notes one time recently he did flail his arm across the bed. Hx TIA with expressive aphasia. Last visit with Dr. Gaviria was one year ago. PAP download: No past medical history on file. No past surgical history on file. Current Outpatient Medications on File Prior to Visit Medication Sig rOPINIRole ER (REQUIP XL) 6 mg tablet TAKE 1 TABLET BY MOUTH EVERY DAY losartan-hydroCHLOROthiazide (HYZAAR) 100-25 mg per tablet Take 1 tablet by mouth once daily. albuterol HFA (PROVENTIL HFA, VENTOLIN HFA) 90 mcg/actuation inhaler Inhale 2 Puffs as instructed every 4 hours as needed. Pt aware insurance requires prior auth- will pay cruz with [employer] coupon. benzonatate (TESSALON PERLES) 100 mg capsule Take 1-2 capsules by mouth three times daily as needed. carvedilol (COREG) 12.5 mg tablet Take 12.5 mg by mouth once daily. aspirin, enteric coated (ASPIRIN, ENTERIC COATED) 81 mg EC tablet q 24 HR. No current facility-administered medications on file prior to visit. Social History Tobacco Use Smoking status: Never Smokeless tobacco: Never Substance Use Topics Alcohol use: Yes Comment: Seldom Drug use: Never ALLERGIES No Known Allergies Review of Systems: Cardiopulmonary: denies + chest pain (tightness- had appt with Dr. Grewal this AM), palpitations Respiratory: denies shortness of breath GI/: denies recent nausea, vomiting, diarrhea, constipation, incontinence Musculoskeletal: denies weakness Back/spine: denies + low back or cervical pains Neuro: Denies + tremors, loss of feeling, dizziness, seizure, blackout, paresthesia, facial paresthesia, facial weakness, difficulty in speech, slurring of words, dysarthria, dysphagia, memory loss, headache, vision changes, + tinnitus Physical Exam: 06/08/22 1628 BP: 154/88 Pulse: 64 Resp: 16 Temp: 36.5 C (97.7 F) SpO2: 97% Weight: 108 kg (238 lb) Patient is alert and in no distress. Dress is appropriate. Mood is appropriate Breathing appears regular and unstressed Neurologic examination: Cognitively intact. No deficits. No formal MMSE performed. CN: Pupils equal and reactive to light, extraocular movements intact with no nystagmus, face is symmetric with no facial droop, hearing intact bilaterally, symmetric elevation of the soft palate, tongue is midline with no deviation, shoulder shrug is symmetric. Motor exam shows 5/5 strength symmetric through the upper and lower extremities in all groups tested. Sensory intact to light touch in all extremities. Vibratory sensation is intact and symmetric all extremities. Deep tendon reflexes are symmetric at the biceps, brachioradialis, triceps, patella, and achilles bilaterally. Coordination: No dysmetria on finger to nose. No drift seen. Gait normal in stance and pattern. LISA of pronation and supination, finger and hand tapping intact. Toe tapping intact. No rigidity. Tremor to RUE intermittently at rest and with ambulation. No extrapyramidal findings. Normal station and stride. Arm swing symmetric. Good body turn; rises from chair well. No retropulsion. Labs/studies: Previously Reviewed: MRI Report MRI BRAIN WO/W IVCON Exam End: 05/24/2021 8:36 AM (Final result) Narrative: * * *Final Report* * * DATE OF EXAM: May 24 2021 8:36AM [facility] 0295 - MRI BRAIN WO/W IVCON / PROCEDURE REASON: Abnormal involuntary movement * * * * Physician Interpretation * * * * EXAMINATION: MRI BRAIN WO/W IVCON HISTORY: Abnormal involuntary movement. TECHNIQUE: Routine brain MRI protocol without and with contrast including diffusion and gradient echo images. MQ: [id number] Contrast: 20 mL Dotarem IV COMPARISON: None. RESULT: Acute Change: There is no evidence of restricted diffusion to suggest an acute infarct. Hemorrhage: No evidence of prior parenchymal hemorrhage on the gradient echo images. Mass Lesion/ Mass Effect: No evidence of an intracranial mass or extra-axial fluid collection. No abnormal parenchymal or leptomeningeal enhancement is noted following contrast administration. No significant mass effect. Chronic Change: Scattered patchy areas of increased T2 and FLAIR signal are present in the supratentorial white matter which is a nonspecific finding but likely represents mild chronic microvascular ischemia. Parenchyma: There is mild generalized parenchymal volume loss. The brain parenchyma is otherwise within normal limits of signal intensity and morphology. Ventricles: Ventriculomegaly corresponds to the degree of parenchymal volume loss. Skull Base: Hypothalamic and pituitary region are grossly normal. Craniocervical junction is normal. No significant marrow replacement process. Vasculature: Major intracranial arterial structures, and dural venous sinuses show typical flow void, suggesting patency by spin echo criteria. Other: Minimal mucosal thickening present within the imaged paranasal sinuses. Impression: IMPRESSION: No acute findings. No abnormal enhancement. Chronic changes. Local Delivery Driver: MARCY Transcribe Date/Time: May 24 2021 8:57A Dictated by : NATE SAXENA MD This examination was interpreted and the report reviewed and electronically signed by: NATE SAXENA MD on May 24 2021 9:07AM EST Complete Results Assessment/Plan: R25.1 Tremor (primary encounter diagnosis) Comment: Patient previously seen for RUE tremor with exam findings suggestive of PD. Previous exam noting resting tremor, decreased RUE swing, and increased tone of RUE. Improvement in exam after initiation of Requip XL, however, RUE tremor still present intermittently. Requip dose was further increased to 6mg daily (pt prefers once daily dosing). Today, he reports tremor still present at rest. Exam unremarkable with exception of intermittent RUE resting tremor as well as tremor present with ambulation. As tremor is persistent and pt reporting continued fatigue as well (see concern below) will place consult to movement disorder clinic to evaluate symptoms and provide further recommendationsfor medication and treatment. G47.33 IBAN (obstructive sleep apnea) R53.83 Other fatigue Comment: Pt prescribed PAP by outside provider. Download not available at time of previous appointment. Download obtained in interim, however, appears information is from 10/2021. Appears PAP was used03/24 days. However, recent data unavailable and pt reports compliance with device. Note, lab work from [facility] reviewed (B12, TSH, TIBC/iron/ferritin, Vit D, cortisol, A1C WNL and low free testosterone). He still notes increased fatigue and brain fog at time of OV today. Discussed possible contributing factors including IBAN and poor sleep, increased stress/anxiety, and medications used to treat PD. Uncertain to what degree any or all of the aforementioned factors are contributing to sx. Have askedthat he follow up with his sleep medicine provider as well as his PCP. R51.9 Frequent headaches I10 Hypertension, unspecified type Comment: Previously reporting frequent headaches with headache occurring roughly four days per week. Located to either R or L hemicrania and associated with phonophobia. No photophobia or visual changes. BP elevated at time of last OV and discussed follow up with PCP for BP management. Today, headaches have improved and mostly only present when not using PAP. However, BP remains elevated and again discussed follow up with PCP to address. Will defer medication for APONTE at this time given improvement. H93.19 Tinnitus, unspecified laterality Comment: As noted at previous appointment: history of tinnitus with past workup by ENT roughly 8-10years ago. Symptoms remain bothersome and as medications would have limited effect on symptoms referral was placed to tinnitus management clinic. He was previously unable to schedule and new consult entered at time of appt today. Office Visit on 06/08/22 CONSULT TO NEUROLOGY [facility]NAGEMENT [facility] Bailee Choe APRN.CLINICAL QUALITY ASSURANCE ASSOCIATE I spent a total of 40 minutes on the date of the service which included preparing to see the patient, [id number] patient care, completing clinical documentation, obtaining and/or reviewing separately obtained history, performing a medically appropriate examination, counseling and educating the pat ient/family/caregiver, and ordering medications, tests, or procedures. documented in this encounterK[facility]02-21-2023 Miscellaneous Notes* Telephone Encounter - Natacha Burch MA - 05/16/2022 10:29 AM EST X2 attempt to reach patient. Unable to reach. Left detailed message on identified VM with instructions to take SD card to Dr. Page's office. Will close TE at this time. Natacha Burch MA * Telephone Encounter - Natacha Burch MA - 05/10/2022 11:54 AM EST TC to Dr. Paeg's office: last download was 02/20/23. Advised for current download patient will need to present to office with SD Card. TC to patient. Unable to reach patient. Left deatiled message on identified VM with instructions. Will wait for current download to be faxed & scanned into chart. Also updated patient's chart with CPAP supplier: Dr. Page. Natacha Burch MA * Telephone Encounter - Christie Hare RN - 05/09/2022 8:56 AM EST Patient calls and states that his CPAP has not been helping. Patient states that he is still extremely tired. Patient is wondering if the setting need to be changed? Patient states that he is using it all the time and cannot understand why he still is feeling tired. Please review and advise, Chritsie Hare RN documented in this encounterK[facility]02-13-2023 Miscellaneous Notes* Telephone Encounter - Julieth Bhakta MA - 05/08/2022 9:04 AM EST Pharmacy escripts requesting the following refill: Requested Prescriptions Pending Prescriptions Disp Refills rOPINIRole ER (REQUIP XL) 6 mg tablet [Pharmacy Med Name: ROPINIROLE HCL ER 6 MG TABLET] 30 tablet 2 Sig: TAKE 1 TABLET BY MOUTH EVERY DAY LORI: 12/29/2021 NOV: None Please review. Julieth Bhakta CMA documented in this encounterK[facility]01-16-2023 Miscellaneous Notes* Telephone Encounter - Sahra Lake LPN - 04/10/2022 2:15 PM EST Last prescribed: 12/29/21- 30 with 2 refills Last OV: 12/29/21 K.D. Future OV: NA OARRS: Check epic Assessment/Plan: R25.1 Tremor (primary encounter diagnosis) Comment: Patient previously seen for RUE tremor with exam findings suggestive of PD. Pt with resting tremor, decreased RUE swing, and increased tone of RUE. He was previously started on Requip XL with titration up to 4mg daily (prefers once daily dosing). At appointment today he denies SE but againreports minimal change in symptoms. Exam today without rigidity of RUE but still noting slightly dec reased RUE swing and intermittent RUE tremor. Again discussed options today such as increasing medication verses transitioning to alternative medication. Did discuss that despite increasing Requip tremor may not completely resolve and would assess for further improvement in arm swing and no furtherworsening or changes. At this time he would like to increase dose to 6mg Requip XL. If no improvement after further increase can then consider alternative medication. Recommend continuing to stay active and obtain adequate exercise within limitations. G47.33 Obstructive sleep apnea R53.83 Other fatigue Comment: Pt with history of IBAN. Reporting increased fatigue and brain fog. He reports frequent napping as well. He has a CPAP which he estimates he has had for roughly eight years. Uncertain when the last time his PAP settings were reviewed. Will attempt to obtain download once determining DME as pt is uncertain which one he uses. In addition, will obtain recent labs completed at [facility] to determine if additional blood work should be completed to further evaluate for cause of fatigue. R51.9 Frequent headaches I10 Hypertension, unspecified type Comment: Pt reporting frequent headaches roughly four days per week. Headaches typically located toeither R or L hemicrania and usually occur at the end of a work day. No associated photophobia or visual changes, but does note phonophobia. He does feel increased stress at work can contribute to headaches. In addition, BP in office today was 176/94. Pt reports inconsistent administration of BP medications. Recommend antihypertensive compliance and follow up with PCP for management. Will also review PAP and IBAN sx as above which may lead to further improvement in headaches. If headaches persist despite control of BP and improvement in sleep, will consider daily headache preventative. H93.13 Tinnitus, bilateral Comment: History of tinnitus with past workup by ENT roughly 8-10 years ago. Pt reports tinnitus isbothersome and has difficulty hearing at times. Discussed that medications would have limited effect on sx and referral offered to tinnitus management clinic. Consult placed. Office Visit on 12/29/21 [facility] Bailee Choe APRN.CLINICAL QUALITY ASSURANCE ASSOCIATE * Telephone Encounter - Candice Dc RN - 04/10/2022 1:34 PM EST Patient calling and requesting a refill of his ropinirole ER 6mg. He reports he has been using a combination of 2 mg and 4 mg to equal 6 mg, and is requesting a refill of 6 mg strength, if provider agreeable. [facility] in [place] please. No call back needed to pt if provider able to process request. Thank you. documented in this encounterK[facility]12-06-2022 Miscellaneous Notes* Telephone Encounter - ALEKSANDR Galvan - 02/28/2022 1:43 PM EST Compliance report received and placed on providers desk for review on return to office Sunday, 03/06. ALEKSANDR Galvan * Telephone Encounter - ALEKSANDR Galvan - 02/28/2022 11:13 AM EST TC to Dr. Page's office who is sending the compliance report via fax to the [place] office. [employer]watch for fax. ALEKSANDR Galvan * Telephone Encounter - Aleah Blank LPN - 02/23/2022 11:16 AM EST Attempted to reach Dr Page office [phone] and rings busy every time. Faxed request to [facility]/ [place] office at [phone] to request the PAP Compliance report be forwarded to Dr. Dempsey's office in [place]. Aleah Blank LPN * Telephone Encounter - Christie Hare RN - 02/22/2022 3:55 PM EST Patient calls and states that Dr. Bahena's office has received patient's information from CPAP. Patient was told that Dr. Dempsey's office needs to contact Dr. Bahena's office for information. Christie Hare RN documented in this encounterKet[facility]11-08-2022 Miscellaneous Notes* Telephone Encounter - ALEKSANDR Galvan - 01/31/2022 9:34 AM EST No response after several attempts. Closing encounter. ALEKSANDR Galvan * Telephone Encounter - ALEKSANDR Galvan - 01/19/2022 3:24 PM EDT TC to Dr. Page's office to request update on if pt brought in chip for a compliance report. No answer. Left detailed message with number to return call. ALEKSANDR Galvan * Telephone Encounter - Bailee Choe APRN.CNP - 01/03/2022 9:15 AM EDT Noted. Will await uploaded PAP download. Reviewed lab work. No additional labs needed at this time. * Telephone Encounter - ALEKSANDR Galvan - 01/03/2022 9:14 AM EDT Please see update below regarding patient PAP downloads. Thank you. ALEKSANDR Galvan * Telephone Encounter - Devika Ceja Pss - 12/30/2021 12:50 PM EDT Receive lab results by fax from [facility] as requested. Sent the records to scanning for the patient's chart. * Telephone Encounter - Lucy Salmeron LPN - 12/30/2021 8:[address] Page's office returned call and patient uses Dr. Paeg's office as DME. Last time a compliance report was download was 2018. Patient will need to bring in chip to [facility] to download anupdated report. Did leave a detailed message for patient asking him to complete above task. * Telephone Encounter - ALEKSANDR Galvan - 12/29/2021 4:48 PM EDT Per provider's request, TC to Dr. Page's office to inquire if they have pt's DME company on file. Pt is unaware of DME and follows with Dr. Page's office. Provider requesting compliance report.No answer, left message. Fax also sent to [facility] Medical Records requesting patient's recent blood work from April. Will watch for fax. ALEKSANDR Galvan documented in this encounterKettering Health [facility]10-06-2022 History of Present illness Narrative* Bailee Choe APRN.CLINICAL QUALITY ASSURANCE ASSOCIATE - 12/29/2021 4:30 PM EDT Images from the original note were not included. t [facility] Follow-up Visit Follow-up note December 29, 2021 HPI: Mr. Navarro presents today for a follow-up visit. Per his previous visit on 09/08/21: G20 Parkinson disease (HCC) (primary encounter diagnosis) Comment: Patient previously seen for RUE tremor with exam findings suggestive of PD. Pt with resting tremor, decreased RUE swing, and increased tone of RUE. At time of last appointment he was startedon Requip XL 2mg daily as pt prefers once daily dosing. He denies SE from medication, however, he notes no significant change since initiation of medication. Exam essentially unchanged from time of previous appointment. Options were discussed including transitioning to alternative medication such as Sinemet verses increasing dose of Requip. At this time he would like to try increasing Requip doseand new prescription provided for Requip XL 4mg daily. SE reviewed. Continue to stay active and exercise within limitations. He will follow up in 2-3 months to review medication, however, if tremor worsens or symptoms do not improve in interim he will contact the office. Since August he does not feel like he has not gotten any worse, however, does not feel like anything has improved. Tremor still present in R hand. Notes some intermittent possible tremor in L. Denies tremor to head or legs. Does feel like he is catching his heel once in a while. No freezing. No difficulty with fine motor coordination. Sometimes notes slowness to R hand. Denies changes in taste, smell, bowel, bladder. Denies acting out dreams or yelling out. Using CPAP. Goes once a year to have CPAP settings checked. Has had this machine for 8 years. Still noting brain fog. Feels tired all the time. Gets up at 0430. Tries to go to bed at 9pm. Can fall asleep once he gets home. Has not been exercising. Has been having headaches; 4 out of 7 days of the week. Happens at the end of the day while at work. Usually located bilaterally radiating from the front to the back of his head. Dneies vision changes, light sensitivity. Does have some sound sensitivity. Had headaches prior to starting Requip. Doesnot take any OTC medications for headaches. Sat in his car and fell asleep at lunch. Hx of tinnitus; chronic for many years. Can't hear sometimes because of the noise. Had workup by ENT 8-10 years ago when this began. Did not take his blood pressure medication today. No past medical history on file. No past surgical history on file. Current Outpatient Medications on File Prior to Visit Medication Sig rOPINIRole ER 4 mg 24 hr tablet TAKE 1 TABLET BY MOUTH EVERYDAY AT BEDTIME carvedilol (COREG) 12.5 mg tablet aspirin, enteric coated (ASPIRIN, ENTERIC COATED) 81 mg EC tablet q 24 HR. carvedilol (COREG) 25 mg tablet Take 25 mg by mouth twice daily. No current facility-administered medications on file prior to visit. Social History Tobacco Use Smoking status: Never Smokeless tobacco: Never Substance Use Topics Alcohol use: Yes Comment: Seldom Drug use: Never ALLERGIES No Known Allergies Review of Systems: Cardiopulmonary: denies + chest pain (tightness- had appt with Dr. Grewal this AM), palpitations Respiratory: denies shortness of breath GI/: denies recent nausea, vomiting, diarrhea, constipation, incontinence Musculoskeletal: denies weakness Back/spine: denies + low back or cervical pains Neuro: Denies + tremors, loss of feeling, dizziness, seizure, blackout, paresthesia, facial paresthesia, facial weakness, difficulty in speech, slurring of words, dysarthria, dysphagia, memory loss, headache, vision changes, + tinnitus Physical Exam: 12/29/21 1622 BP: 176/94 Pulse: 60 Resp: 16 Temp: 36.4 C (97.6 F) TempSrc: Temporal SpO2: 96% Weight: 103 kg (227 lb) Patient is alert and in no distress. Dress is appropriate. Mood is appropriate Breathing appears regular and unstressed Neurologic examination: Cognitively intact. No deficits. No formal MMSE performed. CN: Pupils equal and reactive to light, extraocular movements intact with no nystagmus, face is symmetric with no facial droop, hearing intact bilaterally, symmetric elevation of the soft palate, tongue is midline with no deviation, shoulder shrug is symmetric. Motor exam shows 5/5 strength symmetric through the upper and lower extremities in all groups tested. Sensory intact to light touch in all extremities. Vibratory sensation is intact and symmetric all extremities. Deep tendon reflexes are symmetric at the biceps, brachioradialis, triceps, patella, and achilles bilaterally. Coordination: No dysmetria on finger to nose. No drift seen. Gait normal in stance and pattern. LISA of pronation and supination, finger and hand tapping intact. Toe tapping intact. There is no asterixis of the hands. No rigidity. Tremor to RUE at rest and intermittently with ambulation. No extrapyramidal findings. Normal station and stride. Arm swing slightly decreased to RUE. Good body turn; rises from chair well. No retropulsion. Labs/studies: Previously Reviewed: MRI Report MRI BRAIN WO/W IVCON Exam End: 05/24/2021 8:36 AM (Final result) Narrative: * * *Final Report* * * DATE OF EXAM: May 24 2021 8:36AM [facility] 0295 - MRI BRAIN WO/W IVCON / PROCEDURE REASON: Abnormal involuntary movement * * * * Physician Interpretation * * * * EXAMINATION: MRI BRAIN WO/W IVCON HISTORY: Abnormal involuntary movement. TECHNIQUE: Routine brain MRI protocol without and with contrast including diffusion and gradient echo images. MQ: MRBWOW_2 Contrast: 20 mL Dotarem IV COMPARISON: None. RESULT: Acute Change: There is no evidence of restricted diffusion to suggest an acute infarct. Hemorrhage: No evidence of prior parenchymal hemorrhage on the gradient echo images. Mass Lesion/ Mass Effect: No evidence of an intracranial mass or extra-axial fluid collection. No abnormal parenchymal or leptomeningeal enhancement is noted following contrast administration. No significant mass effect. Chronic Change: Scattered patchy areas of increased T2 and FLAIR signal are present in the supratentorial white matter which is a nonspecific finding but likely represents mild chronic microvascular ischemia. Parenchyma: There is mild generalized parenchymal volume loss. The brain parenchyma is otherwise within normal limits of signal intensity and morphology. Ventricles: Ventriculomegaly corresponds to the degree of parenchymal volume loss. Skull Base: Hypothalamic and pituitary region are grossly normal. Craniocervical junction is normal. No significant marrow replacement process. Vasculature: Major intracranial arterial structures, and dural venous sinuses show typical flow void, suggesting patency by spin echo criteria. Other: Minimal mucosal thickening present within the imaged paranasal sinuses. Impression: IMPRESSION: No acute findings. No abnormal enhancement. Chronic changes. [facility] Transcribe Date/Time: May 24 2021 8:57A Dictated by : NATE SAXENA MD This examination was interpreted and the report reviewed and electronically signed by: NATE SAXENA MD on May 24 2021 9:07AM EST Complete Results Assessment/Plan: R25.1 Tremor (primary encounter diagnosis) Comment: Patient previously seen for RUE tremor with exam findings suggestive of PD. Pt with resting tremor, decreased RUE swing, and increased tone of RUE. He was previously started on Requip XL with titration up to 4mg daily (prefers once daily dosing). At appointment today he denies SE but againreports minimal change in symptoms. Exam today without rigidity of RUE but still noting slightly dec reased RUE swing and intermittent RUE tremor. Again discussed options today such as increasing medication verses transitioning to alternative medication. Did discuss that despite increasing Requip tremor may not completely resolve and would assess for further improvement in arm swing and no furtherworsening or changes. At this time he would like to increase dose to 6mg Requip XL. If no improvement after further increase can then consider alternative medication. Recommend continuing to stay active and obtain adequate exercise within limitations. G47.33 Obstructive sleep apnea R53.83 Other fatigue Comment: Pt with history of IBAN. Reporting increased fatigue and brain fog. He reports frequent napping as well. He has a CPAP which he estimates he has had for roughly eight years. Uncertain when the last time his PAP settings were reviewed. Will attempt to obtain download once determining DME as pt is uncertain which one he uses. In addition, will obtain recent labs completed at [facility] to determine if additional blood work should be completed to further evaluate for cause of fatigue. R51.9 Frequent headaches I10 Hypertension, unspecified type Comment: Pt reporting frequent headaches roughly four days per week. Headaches typically located toeither R or L hemicrania and usually occur at the end of a work day. No associated photophobia or visual changes, but does note phonophobia. He does feel increased stress at work can contribute to headaches. In addition, BP in office today was 176/94. Pt reports inconsistent administration of BP medications. Recommend antihypertensive compliance and follow up with PCP for management. Will also review PAP and IBAN sx as above which may lead to further improvement in headaches. If headaches persist despite control of BP and improvement in sleep, will consider daily headache preventative. H93.13 Tinnitus, bilateral Comment: History of tinnitus with past workup by ENT roughly 8-10 years ago. Pt reports tinnitus isbothersome and has difficulty hearing at times. Discussed that medications would have limited effect on sx and referral offered to tinnitus management clinic. Consult placed. Office Visit on 12/29/21 [facility] Bailee Choe APRN.CHENG I spent a total of 45 minutes on the date of the service which included preparing to see the patient, [id number] patient care, completing clinical documentation, obtaining and/or reviewing separately obtained history, performing a medically appropriate examination, counseling and educating the pat ient/family/caregiver, and ordering medications, tests, or procedures. Addendum 01/02/22: Lab work received from [facility]. Recent B12 725, TSH 1.16, free testosterone low, TIBC/iron/ferritin normal, Vitamin D normal, Free T4 normal, cortisol normal, A1C 5.3 -completed on 12/30/21. No additional blood work recommended at this time. Will await PAP download. [facility] Miscellaneous Notes* Telephone Encounter - Julieth Bhakta MA - 11/21/2021 10:56 AM EDT Pharmacy escripts requesting the following refill: Requested Prescriptions Pending Prescriptions Disp Refills rOPINIRole ER 4 mg 24 hr tablet [Pharmacy Med Name: ROPINIROLE HCL ER 4 MG TABLET] 30 tablet 2 Sig: TAKE 1 TABLET BY MOUTH EVERYDAY AT BEDTIME LORI: 09/08/2021 NOV: 12/29/2021 Please review. Julieth Bhakta CMA documented in this encounterK[facility]06-23-2022 Instructions* Patient Instructions* Virginia Renteria PA-C - 09/15/2021 12:00 PM EDT HEADACHE GENERAL INFORMATION: Almost everyone has a headache occasionally. Most headaches are caused by tension, eye strain, or emotional upset. Headaches can also occur with many medical illnesses. They may be a side effect of some medications. A headache that occurs without other symptoms and only lasts a few hours probably isn't a cause for concern. INSTRUCTIONS: 1. You may use [id number]-[id number] pain medication such as acetaminophen, ibuprofen, or aspirin unlessyour doctor recommends otherwise. 2. Try some of the following measures to relieve your headache: Stretch and massage the muscles in your shoulders, neck, jaw, and scalp. Take a hot bath. Rest in a quiet, darkened room. Place a warm or cold wet cloth (whichever feels better to you) over the aching area. 3. Don't skip meals or delay meals for very long. Drink plenty of fluids. 4. Avoid alcoholic beverages and cigarette smoking. These often make a headache worse. 5. Get plenty of rest. A good night's sleep often is the best way to relieve a headache. CONTACT YOUR DOCTOR IF: 1. Your headache gets worse or lasts longer than 24 hours. 2. You develop a temperature over 100.5 F (38 C) 3. You need to take medicine to relieve headache pain more than 3 times a week. GO TO THE ED IF: 1. Your headache is different from any headache you ever had before, or is the worst headache of your life. 2. You feel confused or drowsy. 3. Your neck feels stiff. 4. You have a temperature of 102 F (39 C) or higher. 5. You have eye problems such as sensitivity to light or blurred or double vision. 6. You start to vomit. 7. You have difficulty walking, talking, or moving your arms or legs. documented in this encounterK[facility]06-23-2022 History of Present illness Narrative* Virginia Renteria PA-C - 09/15/2021 11:26 AM EDT Subjective Melanie Navarro is a 61 year old male with a past medical history of CVA, Parkinson's disease, [place], hypertension, and thrombocytopenia who presents to [facility] today for evaluation of headache, fatigue, sweats, and chills that began yesterday. He states that he felt as though he had a fever last night but he did not take his temperature. He states that the headache is on the top of his head. Hestates that it was gradual in onset and has been constant. He endorses some associated nausea but denies any changes in vision. No dizziness or lightheadedness. He did take some aspirin yesterday which helped some. He denies any injury or trauma. Review of Systems Constitutional: Positive for chills, diaphoresis and fatigue. Negative for fever. HENT: Negative for congestion and sore throat. Eyes: Negative for photophobia, discharge, redness and visual disturbance. Respiratory: Negative for cough and shortness of breath. Gastrointestinal: Positive for nausea. Negative for abdominal pain, constipation, diarrhea and vomiting. Musculoskeletal: Negative for back pain and neck pain. Skin: Negative for rash and wound. Neurological: Positive for headaches. Negative for seizures, syncope, weakness and numbness. All other systems reviewed and are negative. Objective BP 156/90 Pulse 68 Temp 36.6 C (97.8 F) Resp 16 Ht 175.3 cm (5' 9) Wt 102.5 kg (226 lb) SpO2 97% BMI 33.37 kg/m Physical Exam Vitals reviewed. Constitutional: General: He is not in acute distress. Appearance: Normal appearance. He is normal weight. He is not ill-appearing or toxic-appearing. Comments: The patient appears to be non-toxic, in no acute distress, and resting comfortably on a chair. HENT: Head: Normocephalic and atraumatic. Right Ear: Tympanic membrane, ear canal and external ear normal. Left Ear: Tympanic membrane, ear canal and external ear normal. Eyes: Extraocular Movements: Extraocular movements intact. Cardiovascular: Rate and Rhythm: Normal rate and regular rhythm. Heart sounds: Normal heart sounds. No murmur heard. No friction rub. No gallop. Pulmonary: Effort: Pulmonary effort is normal. No respiratory distress. Breath sounds: Normal breath sounds. No wheezing. Musculoskeletal: General: Normal range of motion. Cervical back: Normal range of motion. Skin: General: Skin is warm and dry. Findings: No erythema or rash. Neurological: General: No focal deficit present. Mental Status: He is alert and oriented to person, place, and time. Mental status is at baseline. GCS: GCS eye subscore is 4. GCS verbal subscore is 5. GCS motor subscore is 6. Cranial Nerves: Cranial nerves are intact. Motor: Tremor (right arm, chronic d/t Parkinson's) present. Coordination: Coordination is intact. Haxqkg-Peqh-Eybxfz Test normal. Gait: Gait is intact. Comments: Mild left upper eyelid drooping noted, patient states not new Psychiatric: Mood and Affect: Mood normal. Behavior: Behavior normal. Thought Content: Thought content normal. Assessment and Plan Patient does have a right arm tremor on exam but states that this is chronic due to his history of Parkinson's. He also has a mild droop to his left upper eyelid which he states is not new. No other focal neurological deficits. As patient has also been having fatigue and sweats/chills, I suspect that his headache is due to a viral illness. Patient tested for COVID-19 and influenza. Patient treated here with 1 dose of IM Toradol. Patient advised to go to the ED immediately if he develops any newor worsening symptoms such as worsening headache, vomiting, changes in vision, lightheadedness, dizziness, or fever. ASSESSMENT/PLAN: 1. Viral syndrome - ICD9: 079.99, ICD10: B34.9 (primary diagnosis) 2. Acute nonintractable headache, unspecified headache type - ICD9: 784.0, ICD10: R51.9 - COVID WITH FLUA+B, ROUTINE - KETOROLAC 30 MG/ML (1 ML) INJECTION SOLUTION 3. Nausea - ICD9: 787.02, ICD10: R11.0 - COVID WITH FLUA+B, ROUTINE 4. Fatigue, unspecified type - ICD9: 780.79, ICD10: R53.83 - COVID WITH FLUA+B, ROUTINE Medical Decision Making: Problems: Moderate: Acute illness with systemic symptoms Risk: Minimal: Minimal risk from testing/treatment Moderate: Drug management Medical Decision Making Level: 4 - Moderate I spent a total of 20 minutes on the date of the service which included preparing to see the patient, wzoh-iv-[id number] patient care, completing clinical documentation, performing a medically appropriate examination, counseling and educating the patient/family/caregiver and ordering medications, tests, or procedures. documented in this encounterK[facility]06[facility]16-2022 History of Present illness Narrative* Bailee Choe APRN.[employer] - 09/08/2021 2:30 PM EDT Images from the original note were not included. [facility] Follow-up Visit Follow-up note September 08, 2021 HPI: Mr. Navarro presents today for a follow-up visit. Per his previous visit on 07/08/21: ASSESSMENT/PLAN: 1. Parkinson disease (HCC) - ICD9: 332.0, ICD10: G20 Patient with tremor as above, with MRI brain not suggesting intracranial source. In addition multiple s/s on exam, some of which are new since last visit, to suggest PD. These would include resting tremor, decreased RUE swing, increased tone of cogwheel nature in RUE. Discussed with patient and hiswife the dx, treatment options and prognosis. At this time, feel appropriate to place on trial of medications. We discussed options, and pt for now would like to be on a medication that would be oncedaily. As he is younger and at lower risk of side effects, will first place on trial of Requip XL 2mg daily. Depending on response to medications may need higher dose or consideration to change to Sinemet. SE and ADRs d/w pt. Encouraged exercise. D/w pt appropriate exercises to take part in including bicycling and increasing ambulation. Discussed support groups in area and stop the disease program which he will consider. Would like pt to follow up in 2-3 months to see progress and determine if changes in meds necessary, or sooner prn. Pt and agree with plan. Pts questions were answered and concerns addressed during this visit. Since June he states he is not sure if medication is providing any benefit. He feels like tremor is worse at night when he is about to go to sleep. No change in sx but if anything may be slightly worse. Taking Requip XL 2mg QHS. Denies difficulty with fine motor skills. No changes in gait. Denies changes in taste or smell. Does not act out dreams, yell out in sleep. No changes in handwriting. Denies falls or loss of balance.Denies speech changes; soft, slurred, garbled. Denies bowel or bladder changes. States he feels like he can never get enough sleep. Goes to bed by 9:30pm. Wakes up at 5am. Currently using CPAP. He will be getting a new mask soon. Sometimes feels like R hand might possibly be slightly weaker but unsure. Denies n/t. Feels like he has had increased brain fog lately. Hx of L4-5 disc concerns. Was told he should have a microdiscectomy. Currently has numbness to L foot. Occasional pains to L foot. No weakness but reports pain. No past medical history on file. No past surgical history on file. Current Outpatient Medications on File Prior to Visit Medication Sig rOPINIRole 2 mg 24 hr tablet Take 1 tablet by mouth daily at bedtime. benzonatate (TESSALON PERLES) 100 mg capsule Take 1 capsule by mouth every 8 hours as needed for cough. (Patient not taking: Reported on 2021 ) fluticasone (FLONASE ALLERGY RELIEF) 50 mcg/actuation nasal spray Use 1 Kermit in each nostril once daily. (Patient not taking: Reported on 2021 ) aspirin, enteric coated (ASPIRIN, ENTERIC COATED) 81 mg EC tablet q 24 HR. carvedilol (COREG) 25 mg tablet Take 25 mg by mouth twice daily. (Patient not taking: Reported on 2021 ) losartan-hydrochlorothiazide (HYZAAR) 100-25 mg per tablet hydroCHLOROthiazide / Losartan Losartan/Hydrochlorothiazide [Losartan-Hctz 100-25 Mg Tab] 1 TAB PO DAILY June 28, 2018 Active 06-28-2018 [facility] ([id number]) (Patient not taking: Reported on 07/08/2021) No current facility-administered medications on file prior to visit. Social History Tobacco Use Smoking status: Never Smoker Smokeless tobacco: Never Used Substance Use Topics Alcohol use: Yes Comment: Seldom Drug use: Never ALLERGIES No Known Allergies Review of Systems: Cardiopulmonary: denies + chest pain (tightness- had appt with Dr. Grewal this AM), palpitations Respiratory: denies shortness of breath GI/: denies recent nausea, vomiting, diarrhea, constipation, incontinence Musculoskeletal: denies weakness Back/spine: denies + low back or cervical pains Neuro: Denies + tremors, loss of feeling, dizziness, seizure, blackout, paresthesia, facial paresthesia, facial weakness, difficulty in speech, slurring of words, dysarthria, dysphagia, memory loss, headache, vision changes, + tinnitus Physical Exam: 09/08/21 1348 BP: 138/82 Pulse: 67 Resp: 18 Temp: 36.8 C (98.2 F) SpO2: 96% Weight: 104.3 kg (230 lb) Patient is alert and in no distress. Dress is appropriate. Mood is appropriate Breathing appears regular and unstressed Neurologic examination: Cognitively intact. No deficits. No formal MMSE performed. CN: Pupils equal and reactive to light, extraocular movements intact with no nystagmus, face is symmetric with no facial droop, hearing intact bilaterally, symmetric elevation of the soft palate, tongue is midline with no deviation, shoulder shrug is symmetric. Motor exam shows 5/5 strength symmetric through the upper and lower extremities in all groups tested. Sensory intact to light touch in all extremities. Vibratory sensation is intact and symmetric all extremities. Deep tendon reflexes are symmetric at the biceps, brachioradialis, triceps, patella, and achilles bilaterally. Coordination: No dysmetria on finger to nose. No drift seen. Gait normal in stance and pattern. LISA of pronation and supination, finger and hand tapping intact. Toe tapping intact. There is no asterixis of the hands. Slight rigidity to RUE. Tremor to RUE at rest and intermittently with ambulation. No extrapyramidal findings. Normal station and stride. Arm swing slightly decreased to RUE. Good body turn; rises from chair well. No retropulsion. Labs/studies: MRI Report MRI BRAIN WO/W IVCON Exam End: 05/24/2021 8:36 AM (Final result) Narrative: * * *Final Report* * * DATE OF EXAM: May 24 2021 8:36AM [facility] 0295 - MRI BRAIN WO/W IVCON / PROCEDURE REASON: Abnormal involuntary movement * * * * Physician Interpretation * * * * EXAMINATION: MRI BRAIN WO/W IVCON HISTORY: Abnormal involuntary movement. TECHNIQUE: Routine brain MRI protocol without and with contrast including diffusion and gradient echo images. MQ: MRBWOW_2 Contrast: 20 mL Dotarem IV COMPARISON: None. RESULT: Acute Change: There is no evidence of restricted diffusion to suggest an acute infarct. Hemorrhage: No evidence of prior parenchymal hemorrhage on the gradient echo images. Mass Lesion/ Mass Effect: No evidence of an intracranial mass or extra-axial fluid collection. No abnormal parenchymal or leptomeningeal enhancement is noted following contrast administration. No significant mass effect. Chronic Change: Scattered patchy areas of increased T2 and FLAIR signal are present in the supratentorial white matter which is a nonspecific finding but likely represents mild chronic microvascular ischemia. Parenchyma: There is mild generalized parenchymal volume loss. The brain parenchyma is otherwise within normal limits of signal intensity and morphology. Ventricles: Ventriculomegaly corresponds to the degree of parenchymal volume loss. Skull Base: Hypothalamic and pituitary region are grossly normal. Craniocervical junction is normal. No significant marrow replacement process. Vasculature: Major intracranial arterial structures, and dural venous sinuses show typical flow void, suggesting patency by spin echo criteria. Other: Minimal mucosal thickening present within the imaged paranasal sinuses. Impression: IMPRESSION: No acute findings. No abnormal enhancement. Chronic changes. Local Delivery Driver: MARCY Transcribe Date/Time: May 24 2021 8:57A Dictated by : NATE SAXENA MD This examination was interpreted and the report reviewed and electronically signed by: NATE SAXENA MD on May 24 2021 9:07AM EST Complete Results Assessment/Plan: G20 Parkinson disease (HCC) (primary encounter diagnosis) Comment: Patient previously seen for RUE tremor with exam findings suggestive of PD. Pt with resting tremor, decreased RUE swing, and increased tone of RUE. At time of last appointment he was startedon Requip XL 2mg daily as pt prefers once daily dosing. He denies SE from medication, however, he notes no significant change since initiation of medication. Exam essentially unchanged from time of previous appointment. Options were discussed including transitioning to alternative medication such as Sinemet verses increasing dose of Requip. At this time he would like to try increasing Requip doseand new prescription provided for Requip XL 4mg daily. SE reviewed. Continue to stay active and exercise within limitations. He will follow up in 2-3 months to review medication, however, if tremor worsens or symptoms do not improve in interim he will contact the office. Bailee Choe APRN.CHENG I spent a total of 30 minutes on the date of the service which included preparing to see the patient, [id number] patient care, completing clinical documentation, obtaining and/or reviewing separately obtained history, performing a medically appropriate examination, counseling and educating the pat ient/family/caregiver and ordering medications, tests, or procedures. documented in this encounterK[facility] History of Present illness Narrative* Jeremias Dempsey Jr., MD - 07/08/2021 10:57 AM EDT Established Visit PRIMARY CARE PHYSICIAN: Dr. Bertin Millard REASON FOR CONSULT: Tremor REFERRING PHYSICIAN: Self CHIEF COMPLAINT: Tremor Consultation requested by Self for an opinion regarding chief complaint of Patient presents with: Established NI Medical: Follow up right hand tremors and MRI results and my final recommendations will be communicated back to the requesting physician by way of sharedmedical record or letter via US mail. HISTORY OF PRESENT ILLNESS: Melanie Navarro is a 61 year old male, BMI 33.56 kg/m2 with a PMH significant for and per last office visit of 05/13/21: 1. Tremor - ICD9: 781.0, ICD10: R25.1 (primary diagnosis) Patient with resting tremor of the RUE. No other associated symptoms by history. Exam significant for tremor as well as decrease RUE swing with ambulation. Primary concern at this time is that termormay represent early PD. Also need to consider other intracranial source given history of possible TIA and then symptoms developing months later. Thus, will get MRI brain to further evaluate. As for treating tremor, given minimal symptoms and possible side effects of meds likely outweighing benefit at this time, will hold for now. We did discuss PD including possible future treatment and prognosisif symptoms progress to confirm dx. Encouraged exercise. Note that other symptoms including thrombocytopenia are of uncertain significance in 2019. 2. 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 Will repeat MRI brain at this time to determine if any changes in this mass lesion. 3. Radiculopathy, lumbar region - ICD9: 724.4, ICD10: M54.16 4. Numbness of left foot - ICD9: 782.0, ICD10: R20.8 Numbness in L foot and lumbar pain. Unchanged from prior eval at [facility] and pt not wanting further workup. However, if progresses, will get MRI of L spine. 5. IBAN on CPAP - ICD9: 327.23, V46.8, ICD10: G47.33, Z99.89 Encouraged follow up with Dr. Page. 6. Thrombocytopenia (HCC) - ICD9: 287.5, ICD10: D69.6 Will check CBC. Currently without symptoms. If plt count low will refer to Heme. Pt advised of possible symptoms that would suggest low plt count including nose bleeds, gum bleeding and easy bruising. MRI brain on 05/24/21 unremarkable for acute process or etiology of symptoms. Per rad report: Acute Change: There is no evidence of restricted diffusion to suggest an acute infarct. Hemorrhage: No evidence of prior parenchymal hemorrhage on the gradient echo images. Mass Lesion/ Mass Effect: No evidence of an intracranial mass or extra-axial fluid collection. No abnormal parenchymal or leptomeningeal enhancement is noted following contrast administration. No significant mass effect. Chronic Change: Scattered patchy areas of increased T2 and FLAIR signal are present in the supratentorial white matter which is a nonspecific finding but likely represents mild chronic microvascular ischemia. Parenchyma: There is mild generalized parenchymal volume loss. The brain parenchyma is otherwise within normal limits of signal intensity and morphology. Ventricles: Ventriculomegaly corresponds to the degree of parenchymal volume loss. Skull Base: Hypothalamic and pituitary region are grossly normal. Craniocervical junction is normal. No significant marrow replacement process. Vasculature: Major intracranial arterial structures, and dural venous sinuses show typical flow void, suggesting patency by spin echo criteria. Other: Minimal mucosal thickening present within the imaged paranasal sinuses. Patient feels that maybe the tremor got a little worse. Patient uncertain of walking getting worse.Denies any difference in fine motor skills. Does not sleep well but no RBD symptoms. States [facility] recommending microdiscectomy. Pt opting for therapy. IBAN stable with Dr. Page. Pt feels he can suppress the tremor. When goes to sleep states he notices the tremor so he will put it under the pillow to suppress it. No change in writing. No change in speech. No chane in facial expression. 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 REVIEW OF SYSTEMS GENERAL:No weight loss, malaise or fevers. HEENT:Negative for frequent or significant headaches, No changes in hearing or vision, no nose bleeds or other nasal problems RESPIRATORY: Negative for cough, wheezing or shortness of breath. CARDIOVASCULAR: Negative for chest pain, leg swelling or palpitations. LAB/IMAGING: Reviewed and include: WBC (k/uL) Date Value 05/16/2021 6.90 RBC (m/uL) Date Value 05/16/2021 4.70 Hemoglobin (g/dL) Date Value 05/16/2021 13.6 Hematocrit (%) Date Value 05/16/2021 41.6 MCV (fL) Date Value 05/16/2021 88.5 MCH (pG) Date Value 05/16/2021 28.9 MCHC (g/dL) Date Value 05/16/2021 32.7 RDW-CV (%) Date Value 05/16/2021 13.2 Platelet Count (k/uL) Date Value 05/16/2021 198 MPV (fL) Date Value 05/16/2021 10.6 Glucose (mg/dL) Date Value 05/16/2021 92 BUN (mg/dL) Date Value 05/16/2021 15 Creatinine (mg/dL) Date Value 05/16/2021 0.97 Sodium (mmol/L) Date Value 05/16/2021 137 Potassium (mmol/L) Date Value 05/16/2021 4.3 Chloride (mmol/L) Date Value 05/16/2021 100 CO2 (mmol/L) Date Value 05/16/2021 26 Protein, Total (g/dL) Date Value 05/16/2021 7.4 Albumin (g/dL) Date Value 05/16/2021 4.4 Calcium (mg/dL) Date Value 05/16/2021 9.5 Alkaline Phosphatase (U/L) Date Value 05/16/2021 93 Bilirubin, Total (mg/dL) Date Value 05/16/2021 0.4 AST (U/L) Date Value 05/16/2021 32 ALT (U/L) Date Value 05/16/2021 39 MEDICATIONS: aspirin, enteric coated (ASPIRIN, ENTERIC COATED) 81 mg EC tablet q 24 HR. benzonatate (TESSALON PERLES) 100 mg capsule Take 1 capsule by mouth every 8 hours as needed for cough. fluticasone (FLONASE ALLERGY RELIEF) 50 mcg/actuation nasal spray Use 1 Kermit in each nostril once daily. carvedilol (COREG) 25 mg tablet Take 25 mg by mouth twice daily. losartan-hydrochlorothiazide (HYZAAR) 100-25 mg per tablet hydroCHLOROthiazide / Losartan Losartan/Hydrochlorothiazide [Losartan-Hctz 100-25 Mg Tab] 1 TAB PO DAILY June 28, 2018 Active 06-28-2018 [facility] ([id number]) HISTORIES SOCIAL HISTORY Social History Tobacco Use Smoking status: Never Smoker Smokeless tobacco: Never Used Substance Use Topics Alcohol use: Yes Comment: Seldom Drug use: Never PHYSICAL EXAMINATION BP 142/82 Pulse (!) 59 Temp 36.6 C (97.8 F) Resp 18 Wt 101.6 kg (224 lb) SpO2 96% BMI 33.56 kg/m GENERAL EXAM: General appearance: NAD, pleasant. HEENT: NC/AT Lungs: CTA bilaterally. No wheezes present. CV: RRR nl S1, S2 Extr: No cyanosis, clubbing or edema. Skin: Cool to touch. NEUROLOGICAL EXAM: General: Awake, alert, oriented x3 (person,place,time), speech fluent, no dysarthria; comprehension, naming, repetition intact. CN: PERRL, EOMI and without nystagmus, VFF to confrontation, facial sensation and strength are normal and symmetric, hearing is intact to finger rub bilaterally, palate and tongue movements are intact and symmetric. SCM and trapezius strength normal. Motor: Increased tone RUE cogwheel nature, bulk and strength (5/5) bilaterally (throughout extremities x4). Reflexes: Symmetric, plantar stimulation is flexor. Coordination: FNF with very mild dysmetria in the RUE, LISA, HTS intact. Resting tremor in the RUE and with ambulation. Sensation: Light touch, vibration, temperature intact throughout. No evidence of neglect. Gait: Stable with normal stride but decreased arm swing in RUE with associated tremor. Upright posture. No retropulsion. Romberg normal. Assessment and Plan: ASSESSMENT/PLAN: 1. Parkinson disease (HCC) - ICD9: 332.0, ICD10: G20 Patient with tremor as above, with MRI brain not suggesting intracranial source. In addition multiple s/s on exam, some of which are new since last visit, to suggest PD. These would include resting tremor, decreased RUE swing, increased tone of cogwheel nature in RUE. Discussed with patient and hiswife the dx, treatment options and prognosis. At this time, feel appropriate to place on trial of medications. We discussed options, and pt for now would like to be on a medication that would be oncedaily. As he is younger and at lower risk of side effects, will first place on trial of Requip XL 2mg daily. Depending on response to medications may need higher dose or consideration to change to Sinemet. SE and ADRs d/w pt. Encouraged exercise. D/w pt appropriate exercises to take part in including bicycling and increasing ambulation. Discussed support groups in area and stop the disease program which he will consider. Would like pt to follow up in 2-3 months to see progress and determine if changes in meds necessary, or sooner prn. Pt and agree with plan. Pts questions were answered and concerns addressed during this visit. Jeremias Dempsey MD I spent a total of 45 minutes on the date of the service which included preparing to see the patient, [id number] patient care, completing clinical documentation, obtaining and/or reviewing separately obtained history, performing a medically appropriate examination, counseling and educating the pat ient/family/caregiver, ordering medications, tests, or procedures, independently interpreting results (not separately reported) and communicating results to the patient/family/caregiver. documented in this encounterK[facility]11-12-2019 Progress note Author Eliz Cristobal [facility] February 04, 2019 11:09am Note Date/Time February 04, 2019 11:09am [facility] [place] [address] OFFICE VISIT Date of Service: 02/04/19 1105 MR#: [id number] Acct: [id number] Name: MELANIE NAVARRO Rep #: [id number] : 1960 From: Eliz soriano MD Age/Sex: 58/M Location: OMD Status: Signed - Problem List (1) Thrombocytopenia Status: Chronic - Date of Service Date of Service:: 02/04/19 - Chief Complaint Low platelet count - History of Present Illness Patient is a 58-year-old gentleman hospitalized with acute severe thrombocytopenia less than 10K on July 09, 2018. A low platelet count of 51K was first noted on June 28, 2018 when he was hospitalized following a transient (less than 1 hour) episode of focal neurologic symptoms. 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 The patient was then discharged and referred to hematology outpatient clinic for further evaluation of his thrombocytopenia. Since his discharge he noticed increasing rash over his lower extremities, wasseen at his PCP office and a repeat platelet count on July 09 of 9K was noted. He received high-dose Decadron (40 mg daily x4) with improvement in platelet count - Past Medical/Social History Social History Social History: No changes Smoking Status Never smoker Review of Systems Constitutional:: Denies: Fever, Sweats, Weight loss, Appetite change, Chills Respiratory: Denies: Cough, Hemoptysis, Shortness of Breath, Wheezing Gastrointestinal:: Denies: Abdominal pain, Nausea, Vomiting, Diarrhea, Constipation, Hematochezia Genitourinary: Denies: Dysuria, Hematuria, 15, Flank pain Skin: Denies: Rash, Skin Changes, Wounds Neurological:: Denies: Headache, Dizziness, Visual changes, Tinnitus, Hearing loss Vital Signs Height 5 ft 8.5 in Weight: 101.695 kg Weight in Pounds 224.2 lbs Pulse Ox 97 Temperature 98.0 F Pulse Rate 59 Respiratory Rate 16 Blood Pressure 144/96 Blood Pressure Position Sitting - Physical Exam General: Alert, Oriented x3, No apparent distress, - - ECOG 0, overweight Skin:: Negative for: Lesions, Rash, Petechiae, Ecchymosis Laboratory Data: Laboratory Tests 02/04/19 Range/Units 10:44 WBC 7.5 (4.4-11.0) K/mm3 RBC 4.52 L (4.6-6.2) M/mm3 Hgb 13.1 (13.0-16.5) g/dL Hct 39.5 L (40-54) % MCV 87.4 (80-94) fL MCH 29.0 (27.0-32.0) pg MCHC 33.2 (32-36) g/dL RDW Std Deviation 42.5 (35.1-43.9) fl RDW Coeff of Benita 13.3 (11.6-14.6) % Plt Count 193 (150-450) K/mm3 MPV 9.9 (6.2-12.0) fl Immature Gran % (Auto) 0.800 (0.0-0.9) % Neut % (Auto) 70.5 H (47-70) % Lymph % (Auto) 14.6 L (19-41) % [place] % (Auto) 11.3 H (0-10) % Eos % (Auto) 2.3 (0-5) % Baso % (Auto) 0.5 (0-1) % Absolute Neuts (auto) 5.3 (2.0-7.7) X10^3/uL Absolute Lymphs (auto) 1.10 (0.83-4.51) X10^3/uL Nucleated RBC % 0 (0-5) % Laboratory Tests 12/15/13 11/20/14 06/28/18 10:44 09:20 15:40 Plt Count 191 211 51 L 06/29/18 06/30/18 07/09/18 05:15 05:25 10:21 Plt Count 49 L* 48 L* 9 L* 07/09/18 07/10/18 07/11/18 16:25 05:10 06:15 Plt Count 7 L* 16 L* 67 L 07/15/18 07/22/18 07/29/18 14:35 12:56 13:03 Plt Count 288 77 L 69 L 08/05/18 08/12/18 12/31/18 13:16 14:14 09:50 Plt Count 177 186 57 L 01/07/19 01/14/19 01/21/19 12:43 09:54 09:38 Plt Count 257 205 171 02/04/19 10:44 Plt Count 193 Assessment and Plan 58-year-old male who presented in June 2018 with acute isolated severe thrombocytopenia responsive to high-dose steroids (Decadron 40 mg daily x4). This is most consistent with immune thrombocytopenia (ITP). Since then his platelet counts have fluctuated up and down most consistent with chronic immune thrombocytopenia (thrombocytopenia>12 months since presentation). He had a relapse December 2018 but not severe enough to start another course of steroids. Recommendations: 1- Follow-up annual 2. Call prior to any invasive procedure, any abnormal bleeding or if purpura recur. 3. Hold aspirin if platelet count less than 30 K (has coronary disease and a stent) Patient seen impression and plan discussed Eliz Cristobal MD Glue Wheel Operator, [facility] Divisions of Medical Oncology & Hematology Department of Internal Medicine [place] [id number] This note was generated using a voice recognition system software. Although itwas reviewed by the author prior to finalization, it may still contain incorrectwords, spelling, and punctuation that were not noted when reviewing prior to saving. If a clinically significant typo or inaccurately typed phrase is noted, please notify the author. Primary Care Provider: Devika Arcos MD Referring Provider: Eliz Cristobal MD 02/04/19 0554 <Electronically signed by Eliz caputo MD> Date _ Eliz Cristobal MD Cosigner Signature: Date (if applicable) CC: Devika Arcos MD ~ [facility] Work Phone: [phone] 443-838310-08-2019 Progress note Author Eliz Cristobal [facility] December 31, 2018 10:34am Note Date/Time December 31, 2018 10 :02am [facility] [place] [address] OFFICE VISIT Date of Service: 12/31/18 1000 MR#: [id number] Acct: [id number] Name: MELANIE NAVARRO Rep #: [id number] : 1960 From: Eliz soriano MD Age/Sex: 58/M Location: OMD Status: Signed - Problem List (1) Thrombocytopenia Status: Chronic - Date of Service Date of Service:: 12/31/18 - Chief Complaint Thrombocytopenia follow-up - History of Present Illness Patient is a 58-year-old gentleman hospitalized with acute severe thrombocytopenia less than 10K on July 09, 2018. A low platelet count of 51K was first noted on June 28, 2018 when he was hospitalized following a transient (less than 1 hour) episode of focal neurologic symptoms. 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 The patient was then discharged and referred to hematology outpatient clinic for further evaluation of his thrombocytopenia. Since his discharge he noticed increasing rash over his lower extremities, wasseen at his PCP office and a repeat platelet count on July 09 of 9K was noted. He received high-dose Decadron (40 mg daily x4) with improvement in platelet count - Past Medical/Social History Social History Social History: No changes Smoking Status Never smoker Review of Systems Constitutional:: Denies: Fever, Sweats, Weight loss, Appetite change, Chills Cardiovascular:: Denies: Chest pain, Palpitations, Dyspnea on exertion, Orthopnea, PND, Shortness of breath Respiratory: Denies: Cough, Hemoptysis, Shortness of Breath, Wheezing Gastrointestinal:: Denies: Abdominal pain, Nausea, Vomiting, Diarrhea, Constipation, Hematochezia Genitourinary: Denies: Dysuria, Hematuria, 15, Flank pain Musculoskeletal:: Denies: Back pain, Myalgia, Arthralgia Skin: Denies: Rash, Skin Changes, Wounds Neurological:: Denies: Headache, Dizziness, Visual changes, Tinnitus, Hearing loss Psychiatric: Denies: Anxiety, Depression, Homicidal Ideations, Suicidal Ideations Vital Signs Height 5 ft 8.5 in Weight: 99.881 kg Weight in Pounds 220.2 lbs Pulse Ox 96 Temperature 97.5 F Pulse Rate 56 Respiratory Rate 16 Blood Pressure 147/88 Blood Pressure Position Sitting - Physical Exam General: Alert, Oriented x3, No apparent distress Neurological: Neuro grossly intact Skin:: Negative for: Lesions, Rash, Petechiae, Ecchymosis Laboratory Data: Laboratory Tests 12/15/13 11/20/14 06/28/18 10:44 09:20 15:40 Plt Count 191 211 51 L 06/29/18 06/30/18 07/09/18 05:15 05:25 10:21 Plt Count 49 L* 48 L* 9 L* 07/09/18 07/10/18 07/11/18 16:25 05:10 06:15 Plt Count 7 L* 16 L* 67 L 07/15/18 07/22/18 07/29/18 14:35 12:56 13:03 Plt Count 288 77 L 69 L 08/05/18 08/12/18 12/31/18 13:16 14:14 09:50 Plt Count 177 186 57 L Assessment and Plan 58-year-old male who presented in June 2018 with acute isolated severe thrombocytopenia responsive to high-dose steroids (Decadron 40 mg daily x4). This is most consistent with immune thrombocytopenia (ITP). Since then his platelet counts have fluctuated up and down most consistent with chronic fluctuating thrombocytopenia (thrombocytopenia>12 months since presentation). He appears to having a relapse December 2018 but not severe enough to start another course of steroids. Recommendations: 1-follow-up in closely with weekly blood counts over the next month or so. 2. Call prior to any invasive procedure, any abnormal bleeding or if purpura recur. 3. Hold aspirin if platelet count less than 30 K (has coronary disease and a stent) Patient seen impression and plan discussed Eliz Cristobal MD Glue Wheel Operator, [facility] Divisions of Medical Oncology & Hematology Department of Internal Medicine [facility] [place] [address] This note was generated using a voice recognition system software. Although itwas reviewed by the author prior to finalization, it may still contain incorrectwords, spelling, and punctuation that were not noted when reviewing prior to saving. If a clinically significant typo or inaccurately typed phrase is noted, please notify the author. Primary Care Provider: Devika Arcos MD Referring Provider: Eliz Cristobal MD 12/31/18 1034 <Electronically signed by Eliz caputo MD> Date _ Eliz Cristobal MD Cosigner Signature: Date (if applicable) CC: Devika Arcos MD ~ [facility] Work Phone: [phone]) 941-672905-20-2019 Progress note Author Eliz Cristobal [facility] August 12, 2018 2:46pm Note Date/Time August 12, 2018 2:24p m [facility] [place] [address] OFFICE VISIT Date of Service: 08/12/18 1422 MR#: [id number] Acct: [id number] Name: MELANIE NAVARRO Rep #: [id number] : 1960 From: Eliz soriano MD Age/Sex: 58/M Location: OMD Status: Signed - Problem List (1) Thrombocytopenia Status: Acute - Date of Service Date of Service:: 08/12/18 - Chief Complaint Low platelet count follow-up - History of Present Illness Patient is a 58-year-old gentleman hospitalized with acute severe thrombocytopenia less than 10K on July 09, 2018. A low platelet count of 51K was first noted on June 28, 2018 when he was hospitalized following a transient (less than 1 hour) episode of focal neurologic symptoms. 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 The patient was then discharged and referred to hematology outpatient clinic for further evaluation of his thrombocytopenia. Since his discharge he noticed increasing rash over his lower extremities, wasseen at his PCP office and a repeat platelet count on July 09 of 9K was noted. He received high-dose Decadron (40 mg daily x4) with improvement in platelet count - Past Medical/Social History Social History Smoking Status Never smoker Review of Systems Constitutional:: Denies: Fever, Sweats, Weight loss, Appetite change, Chills Respiratory: Denies: Cough, Hemoptysis Gastrointestinal:: Denies: Abdominal pain, Hematochezia Genitourinary: Denies: Hematuria Skin: Denies: Rash, Skin Changes, Wounds Neurological:: Denies: Headache, Dizziness, Visual changes, Tinnitus, Hearing loss Vital Signs Height 5 ft 8.5 in Weight: 99.246 kg Weight in Pounds 218.8 lbs Pulse Ox 97 Temperature 98.4 F Pulse Rate 56 Respiratory Rate 17 Blood Pressure 147/91 Blood Pressure Position Sitting - Physical Exam General: Alert, Oriented x3, No apparent distress Skin:: Negative for: Lesions, Rash, Petechiae, Ecchymosis Laboratory Data: Laboratory Tests 12/15/13 11/20/14 06/28/18 10:44 09:20 15:40 Plt Count 191 211 51 L 06/29/18 06/30/18 07/09/18 05:15 05:25 10:21 Plt Count 49 L* 48 L* 9 L* 07/09/18 07/10/18 07/11/18 16:25 05:10 06:15 Plt Count 7 L* 16 L* 67 L 07/15/18 07/22/18 07/29/18 14:35 12:56 13:03 Plt Count 288 77 L 69 L 08/05/18 13:16 Plt Count 177 Assessment and Plan 58-year-old male who presented in June 2018 with acute isolated severe thrombocytopenia responsive to high-dose steroids (Decadron 40 mg daily x4). This is most consistent with immune thrombocytopenia (ITP). Since then his platelet counts have fluctuated up and down but not low enough to require further courses of steroids. It is very likely that he will have a chronic fluctuating thrombocytopenia but this can be only confirmed with long enough follow-up (thrombocytopenia>12 months since presentation). Recommendations: 1-follow-up in 3 months 5. Call prior to any invasive procedure, any abnormal bleeding or if purpura recur. Patient seen impression and plan discussed Eliz Cristobal MD Glue Wheel Operator, [facility] Divisions of Medical Oncology & Hematology Department of Internal Medicine [place] [address] This note was generated using a voice recognition system software. It may contain incorrect words, spelling, and punctuation that were not noted when reviewing the office note prior to saving. Primary Care Provider: Devika Arcos MD Referring Provider: Eliz Cristobal MD 08/12/181445 <Electronically signed by Eliz caputo MD> Date _ Eliz Cristobal MD Cosigner Signature: Date (if applicable) CC: Devika Arcos MD ~ [facility] Work Phone: [phone]) [phone] Progress note Author Eliz Cristobal [facility] July 15, 2018 3:20pm Note Date/Time July 15, 2018 2:4 8pm [facility] [place] [address] OFFICE VISIT Date of Service: 07/15/18 1446 MR#: [id number] Acct: [id number] Name: MELANIE NAVARRO Maru Rep #: [id number] : 1960 From: Eliz soriano MD Age/Sex: 58/M Location: ONC Status: Signed - Problem List (1) Thrombocytopenia Status: Acute - Date of Service Date of Service:: 07/15/18 - Chief Complaint Low platelet count - History of Present Illness Patient is a 58-year-old gentleman hospitalized with acute severe thrombocytopenia less than 10K on July 09, 2018. A low platelet count of 51K was first noted on June 28, 2018 when he was hospitalized following a transient (less than 1 hour) episode of focal neurologic symptoms. 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 The patient was then discharged and referred to hematology outpatient clinic for further evaluation of his thrombocytopenia. Since his discharge he noticed increasing rash over his lower extremities, wasseen at his PCP office and a repeat platelet count on July 09,019 of 9K was noted. He received high-dose Decadron (40 mg daily x4) with improvement in platelet count - Past Medical/Social History Social History Smoking Status Never smoker Review of Systems Constitutional:: Reports: Fatigue Cardiovascular:: Denies: Chest pain, Palpitations, Dyspnea on exertion, Orthopnea, PND, Shortness of breath Respiratory: Denies: Cough, Hemoptysis, Shortness of Breath, Wheezing Gastrointestinal:: Denies: Abdominal pain, Nausea, Vomiting, Diarrhea, Constipation, Hematochezia Genitourinary: Denies: Dysuria, Hematuria, 15, Flank pain Musculoskeletal:: Denies: Back pain, Myalgia, Arthralgia Skin: Reports: Lesions - Purpura is fading and no new lesions. Denies: Rash, Skin Changes, Wounds Neurological:: Denies: Headache, Dizziness, Visual changes, Tinnitus, Hearing loss Psychiatric: Denies: Anxiety, Depression, Homicidal Ideations, Suicidal Ideations - Physical Exam General: Alert, Oriented x3, No apparent distress Neurological: Neuro grossly intact Skin:: Petechiae - Resolving, Ecchymosis - Resolving Laboratory Data: Laboratory Tests 12/15/13 11/20/14 06/28/18 10:44 09:20 15:40 Plt Count 191 211 51 L 06/29/18 06/30/18 07/09/18 05:15 05:25 10:21 Plt Count 49 L* 48 L* 9 L* 07/09/18 07/10/18 07/11/18 16:25 05:10 06:15 Plt Count 7 L* 16 L* 67 L 07/15/18 14:35 Plt Count 288 Assessment and Plan 58-year-old male who presented with acute isolated severe thrombocytopenia responsive to high-dose steroids (Decadron 40 mg daily x4). This is most consistent with immune thrombocytopenia (ITP). Recommendations: 1. We will watch the platelet count weekly over the course of the next month. 2. Check for HIV, hepatitis virus and H. pylori infections and treat any positive results. 3. May use NSAIDs and antiplatelet agents if indicated for medical reasons as long as platelets above 50 K. 4. Avoid trauma (for example car seatbelt, helmet on a bike, contact sports). 5. Call prior to any invasive procedure, any abnormal bleeding or if purpura recur. Patient seen with his impression and plan discussed Primary Care Provider: Devika Arcos MD Referring Provider: Eliz Cristobal MD 07/15/18 3027 <Electronically signed by Eliz caputo MD> Date _ Eliz Cristobal MD Cosigner Signature: Date (if applicable) CC: Devika Arcos MD ~ [facility] Work Phone: Evaluation noteNo assessment information available [facility] Work Phone: Evaluation note* Diagnosis Parkinson disease (HCC)- Primary Paralysis agitans documented in this encounter [facility] note* Diagnosis Viral syndrome- Primary Unspecified viral infection, in conditions classified elsewhere and of unspecified site Acute nonintractable headache, unspecified headache type Nausea Nausea alone Fatigue, unspecified type documented in this encounter [facility] note* Diagnosis Onset Date Resolution Status Chest pain, unspecified acut e Parkinsons disease acute Atherosclerotic heart diseas e of [place] coronary artery without angina pectoris chronic Essential hypertension chron ic Hyperlipidemia chronic IBAN (obstructive sleep apnea) chronic Presence of stent in coronary artery 2009 chronic Thrombocytopenia chronic [facility] Work Phone: Evaluation note* Diagnosis Parkinson disease (HCC) Paralysis agitans documented in this encounter [facility] note* Diagnosis Tremor- Primary Abnormal involuntary movements Tinnitus, bilateral Unspecified tinnitus Hypertension, unspecified type Obstructive sleep apnea Obstructive sleep apnea (adult) (pediatric) Other fatigue Frequent headaches documented in this encounter [facility] note* Diagnosis Tremor Abnormal involuntary movements documented in this encounter [facility] note* Diagnosis IBAN (obstructive sleep apnea) Obstructive sleep apnea (adult) (pediatric) documented in this encounter [facility] note* Diagnosis Tremor- Primary Abnormal involuntary movements IBAN (obstructive sleep apnea) Obstructive sleep apnea (adult) (pediatric) Other fatigue Frequent headaches Tinnitus, unspecified laterality Hypertension, unspecified type documented in this encounter [facility] note* Diagnosis Parkinson disease (HCC)- Primary Paralysis agitans documented in this encounter [facility] note* Diagnosis Parkinson disease (HCC)- Primary Paralysis agitans documented in this encounter [facility] note* Diagnosis Onset Date Resolution Status Thrombocytopenia [facility] Work Phone: Evaluation note* Diagnosis Parkinson disease (HCC)- Primary Paralysis agitans documented in this encounter [facility] note* Diagnosis Parkinson's disease, unspecified whether dyskinesia present, unspecified whether manifestations fluctuate (HCC)- Primary IBAN (obstructive sleep apnea) Obstructive sleep apnea (adult) (pediatric) Frequent headaches Tinnitus, unspecified laterality Hypertension, unspecified type documented in this encounter [facility] note* Diagnosis Parkinson's disease, unspecified whether dyskinesia present, unspecified whether manifestations fluctuate (HCC) documented in this encounter [facility] note* Diagnosis Parkinson's disease, unspecified whether dyskinesia present, unspecified whether manifestations fluctuate (HCC) documented in this encounter [facility] note* Diagnosis Parkinson's disease, unspecified whether dyskinesia present, unspecified whether manifestations fluctuate (HCC)- Primary IBAN (obstructive sleep apnea) Obstructive sleep apnea (adult) (pediatric) RLS (restless legs syndrome) Restless legs syndrome (RLS) Shortness of breath Diaphoresis Generalized hyperhidrosis Temperature intolerance Other general symptoms Hypertension, unspecified type Nonintractable episodic headache, unspecified headache type documented in this encounter [facility] note* Diagnosis Parkinson's disease, unspecified whether dyskinesia present, unspecified whether manifestations fluctuate (HCC) documented in this encounter [facility] for referral (narrative)No reason for referral information availableWOur [facility] Work Phone: Family History Relationship Condition Age at Onset Recorded Date/T eunice father Coronary artery disease Unknown Myocardial infarction 42 sister Hypertension Unknown mother Malignant neoplasm of colon Unknown Hypertension Unknown Advance Directives Advance Directive Response Recorded Date/ Time Living Will No July 09, 2018 7:29pm Power of Dairy Manager No July 09 7:29pm Advance Directive Response Recorded Date/ Time Do you have a Healthcare Power of Dairy Manager? No October 27, 2024 4:17pm Medications Administered Section Inactive Administered Medications - up to 3 most recent administrations Medication Order MAR Action Action Date Dose Rate Site keTORolac 30 mg injection (TORADOL) 30 mg, INTRAVENOUS, ONCE, 1 dose, On Taya 09/15/21 at 1200, Ketorolac (Toradol) is indicated for the short-term (up to 5 days) management of moderately severe acute pain. Continuation of ketorolac (Toradol) beyond 5 days increases the risk of developing serious adverse events. Please verify the duration of therapy for ketorolac (Toradol), If ordered PRN for pain, patient/guardian may elect to receive this medication for higher pain levels INSTEAD of the opioid, if preferred: Yes Given 09/15/2021 11:55 AM EDT 30 mg Arm, Right Chief Complaint and Reason for Visit Chief Complaint OVERDUE FOR OV Reason for Visit Chest pain, unspecif ied Parkinsons disease Atherosclerotic heart disease of [place] coronary artery without angina pectoris Essential hypertension Hyperlipidemia IBAN (obstructive sleep apnea) Presence of stent in coronary artery Thrombocytopenia Chief Complaint OVERDUE FOR OV CP, CAD/ASHD CP, CAD/ASHD Reason for Visit Chest pain, unspecif ied Parkinsons disease Atherosclerotic heart disease of [place] coronary artery without angina pectoris Essential hypertension Hyperlipidemia IBAN (obstructive sleep apnea) Presence of stent in coronary artery Thrombocytopenia Chief Complaint 1 WK - LABS ONC/HEM Reason for Visit Thrombocytopenia Chief Complaint Admit Date FASTING October 08, 2024 7:57 am Chief Complaint Admit Date FASTING October 08, 2024 7:57 am labs October 27, 2024 2:5 7pm Reason for Referral Specialty Diagnoses / Procedures Referred By Eden t Referred To Contact Neurology Diagnoses Tremor Procedures CONSULT TO NEUROLOGY OFFICE/OUTPATIENT [facility] 60-74 MINUTES Jimmy Benitez MD [address] [facility] [place] [address] Referral ID Status Reason Start Date Expiration Date Visits Requested Visits Authorized [id number] Authorized PCP Requested Referral 06/08/2022 06/08/2023 1 1 Summary Purpose Additional Source Comments Goals (unrecognized section and content) Goals may be documented in a n alternate sectionGoals may be documented in an alternate sectionGoals may be documented in an alternate sectionGoals may be documented in an alternate sectionGoals may be documented in an alternate sectionGoals may be documented in an alternate section Source Comments (unrecognize d section and content) In the event this informatio n is protected by the Federal Confidentiality of Alcohol and Drug Abuse Patient Records regulations: The Federal rules restrict any use of the information to criminally investigate or prosecute any alcohol or drug abuse patient.[facility] the event this information is protected by the Federal Confidentiality of Alcohol and Drug Abuse Patient Records regulations: The Federal rules restrict any use of the information to criminally investigate or prosecute any alcohol or drug abuse patient.[facility] DaytonIn the event this information is protected by the Federal Confidentiality of Alcohol and Drug Abuse Patient Records regulations: The Federal rules restrict any use of the information to criminally investigate or prosecute any alcohol or drug abuse patient.[facility] DaytonIn the event this information is protected by the Federal Confidentiality of Alcohol and Drug Abuse Patient Records regulations: The Federal rules restrict any use of the information to criminally investigate or prosecute any alcohol or drug abuse patient.[facility] DaytonIn the event this information is protected by the Federal Confidentiality of Alcohol and Drug Abuse Patient Records regulations: The Federal rules restrict any use of the information to criminally investigate or prosecute any alcohol or drug abuse patient.[facility] DaytonIn the event this information is protected by the Federal Confidentiality of Alcohol and Drug Abuse Patient Records regulations: The Federal rules restrict any use of the information to criminally investigate or prosecute any alcohol or drug abuse patient.[facility] DaytonIn the event this information is protected by the Federal Confidentiality of Alcohol and Drug Abuse Patient Records regulations: The Federal rules restrict any use of the information to criminally investigate or prosecute any alcohol or drug abuse patient.[facility] DaytonIn the event this information is protected by the Federal Confidentiality of Alcohol and Drug Abuse Patient Records regulations: The Federal rules restrict any use of the information to criminally investigate or prosecute any alcohol or drug abuse patient.[facility] DaytonIn the event this information is protected by the Federal Confidentiality of Alcohol and Drug Abuse Patient Records regulations: The Federal rules restrict any use of the information to criminally investigate or prosecute any alcohol or drug abuse patient.[facility] DaytonIn the event this information is protected by the Federal Confidentiality of Alcohol and Drug Abuse Patient Records regulations: The Federal rules restrict any use of the information to criminally investigate or prosecute any alcohol or drug abuse patient.[facility]In the event this information is protected by the Federal Confidentiality of Alcohol and Drug Abuse Patient Records regulations: The Federal rules restrict any use of the information to criminally investigate or prosecute any alcohol or drug abuse patient.[facility] DaytonIn the event this information is protected by the Federal Confidentiality of Alcohol and Drug Abuse Patient Records regulations: The Federal rules restrict any use of the information to criminally investigate or prosecute any alcohol or drug abuse patient.[facility]In the event this information is protected by the Federal Confidentiality of Alcohol and Drug Abuse Patient Records regulations: The Federal rules restrict any use of the information to criminally investigate or prosecute any alcohol or drug abuse patient.[facility]In the event this information is protected by the Federal Confidentiality of Alcohol and Drug Abuse Patient Records regulations: The Federal rules restrict any use of the information to criminally investigate or prosecute any alcohol or drug abuse patient.[facility] DaytonIn the event this information is protected by the Federal Confidentiality of Alcohol and Drug Abuse Patient Records regulations: The Federal rules restrict any use of the information to criminally investigate or prosecute any alcohol or drug abuse patient.[facility] the event this information is protected by the Federal Confidentiality of Alcohol and Drug Abuse Patient Records regulations: The Federal rules restrict any use of the information to criminally investigate or prosecute any alcohol or drug abuse patient.[facility]In the event this information is protected by the Federal Confidentiality of Alcohol and Drug Abuse Patient Records regulations: The Federal rules restrict any use of the information to criminally investigate or prosecute any alcohol or drug abuse patient.[facility] DaytonIn the event this information is protected by the Federal Confidentiality of Alcohol and Drug Abuse Patient Records regulations: The Federal rules restrict any use of the information to criminally investigate or prosecute any alcohol or drug abuse patient.[facility] DaytonIn the event this information is protected by the Federal Confidentiality of Alcohol and Drug Abuse Patient Records regulations: The Federal rules restrict any use of the information to criminally investigate or prosecute any alcohol or drug abuse patient.[facility] DaytonIn the event this information is protected by the Federal Confidentiality of Alcohol and Drug Abuse Patient Records regulations: The Federal rules restrict any use of the information to criminally investigate or prosecute any alcohol or drug abuse patient.[facility]In the event this information is protected by the Federal Confidentiality of Alcohol and Drug Abuse Patient Records regulations: The Federal rules restrict any use of the information to criminally investigate or prosecute any alcohol or drug abuse patient.[facility]In the event this information is protected by the Federal Confidentiality of Alcohol and Drug Abuse Patient Records regulations: The Federal rules restrict any use of the information to criminally investigate or prosecute any alcohol or drug abuse patient.[facility] DaytonIn the event this information is protected by the Federal Confidentiality of Alcohol and Drug Abuse Patient Records regulations: The Federal rules restrict any use of the information to criminally investigate or prosecute any alcohol or drug abuse patient.[facility]In the event this information is protected by the Federal Confidentiality of Alcohol and Drug Abuse Patient Records regulations: The Federal rules restrict any use of the information to criminally investigate or prosecute any alcohol or drug abuse patient.[facility] DaytonIn the event this information is protected by the Federal Confidentiality of Alcohol and Drug Abuse Patient Records regulations: The Federal rules restrict any use of the information to criminally investigate or prosecute any alcohol or drug abuse patient.[facility] DaytonIn the event this information is protected by the Federal Confidentiality of Alcohol and Drug Abuse Patient Records regulations: The Federal rules restrict any use of the information to criminally investigate or prosecute any alcohol or drug abuse patient.[facility]In the event this information is protected by the Federal Confidentiality of Alcohol and Drug Abuse Patient Records regulations: The Federal rules restrict any use of the information to criminally investigate or prosecute any alcohol or drug abuse patient.[facility] DaytonIn the event this information is protected by the Federal Confidentiality of Alcohol and Drug Abuse Patient Records regulations: The Federal rules restrict any use of the information to criminally investigate or prosecute any alcohol or drug abuse patient.[facility] Reason for Visit (unrecogniz ed section and content) Reason Comments Established [facility] Follow up right h and tremors and MRI results Reason Comments New [facility] Follow up right hand tremor Reason Comments Headache just not feeling rig ht, headache Reason Comments Refill Request Reason Onset Date Comments Refill Request Refill Request 12/30/2021 Reason Comments Follow Up Right hand tremor Reason Comments Patient Update Reason Onset Date Comments Refill Request 04/10/2022 Reason Comments Patient Update Patient Question Reason Comments Follow Up Reason Comments Consult Specialty Diagnoses / Procedures Referred By Contgill t Referred To Contact Neurology Diagnoses Tremor Procedures CONSULT TO NEUROLOGY OFFICE/OUTPATIENT [facility] 60-74 MINUTES Jimmy Benitez MD [address] [place] [address] [place] [address] Referral ID Status Reason Start Date Expiration Date V isits Requested Visits Authorized [id number] Closed PCP Requested Referral 06/08/2022 06/08/2023 1 1 Reason Comments 4 month follow up Reason Comments Patient Update Received insurance d enial from [employer]. Reason for denying request is not medically necessary. Reference # [id number] on [employer]'s desk for review. Reason Comments Established Patient Parkinson Specialty Diagnoses / Procedures Referred By Eden t Referred To Contact [facility] Diagnoses follow up Parkinson Procedures OV Jeremias Dempsey Jr., MD [address] [id number] [facility] [address] [place], [place] [id number] Referral ID Status Reason Start Date Expiration Date Visits Requested Visits Authorized [id number] Incomplete OON/Self Pay Override 11/08/2023 02/15/2025 1 1 Reason Comments CPAP Compliance Reason Comments Med Change Request Reason Comments Follow Up Parkinson's and IBAN follow up, machine is 15 years old and does not transmit data, denies any issues with machines however is feeling fatigued Specialty Diagnoses / Procedures Referred By Eden matthews Referred To Contact [facility] Diagnoses Parkinsons Disease Procedures NI EST PATIENT Jeremias Dempsey Jr., MD [address] [id number] Phone: tel: fax: Neurology [address] [place] [address] Phone: tel: Referral ID Status Reason Start Date Expiration Date Visits Requested Visits Authorized [id number] Incomplete OON/Self Pay Override 05/05/2024 08/13/2025 1 1 Reason Comments Request Outside Medical Records [facility] Care Teams (unrecognized sec tion and content) 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 Pile Driver Operator Relationship Specialty Start Date End Date Devika Arcos [address] [facility] [address] [place] [address] PCP - General Family Practice 07/19/21 Diesel Pile Driver Operator Relationship Specialty Start Date End Date Devika Arcos [address] [facility] [address] [place] [address] PCP - General Family Practice 07/19/21 Diesel Pile Driver Operator Relationship Specialty Start Date End Date Devika Arcos [address] [place] [address] [place] [address] PCP - General Family Practice 07/19/21 Diesel Pile Driver Operator Relationship Specialty Start Date End Date Devika Arcos Bessy [address] [facility] [place] [address] [place] [address] PCP - General Family Medicine 07/19/21 Diesel Pile Driver Operator Relationship Specialty Start Date End Date JosselynDevika [address] [facility] [place] [address] [place] [address] PCP - General Family Medicine 07/19/21 Diesel Pile Driver Operator Relationship Specialty Start Date End Date Devika Arcos [address] [facility] [place] [address] [place] [address] PCP - General Family Medicine 07/19/21 Diesel Pile Driver Operator Relationship Specialty Start Date End Date Devika Arcos [address] [facility] [place] [address] [place] [address] PCP - General Family Medicine 07/19/21 Diesel Pile Driver Operator Relationship Specialty Start Date End Date Devika Arcos [address] [facility] [place] [address] [place] [address] PCP - General Family Medicine 07/19/21 Diesel Pile Driver Operator Relationship Specialty Start Date End Date Devika Arcos [address] [facility] [place] [address] [place] [address] PCP - General Family Medicine 07/19/21 Diesel Pile Driver Operator Relationship Specialty Start Date End Date Devika Arcos [address] [facility] [place] [address] [place] [address] PCP - General Family Medicine 07/19/21 Diesel Pile Driver Operator Relationship Specialty Start Date End Date Devika Arcos [address] [facility] [address] [place] [address] PCP - General Family Medicine 07/19/21 Diesel Pile Driver Operator Relationship Specialty Start Date End Date Devika Arcos [address] [place] [address] PCP - General Family Medicine 07/19/21 Diesel Pile Driver Operator Relationship Specialty Start Date End Date Devika Arcos [address] [facility] [address] [place] [address] PCP - General Family Medicine 07/19/21 Diesel Pile Driver Operator Relationship Specialty Start Date End Date Devika Arcos [address] [facility] [address] [place] [address] PCP - General Family Medicine 07/19/21 Team Status: Active Member Role Status Dates Dr. Devika Arcos MD Family Provider Active Dr. eDvika Arcos MD Primary Care Provider Active Team Status: Inactive Member Role Status Dates Dr. Devika Arcos MD Primary Care Provider, Referrin g Provider Active Dr. Eliz Cristobal MD Attending Provider Active Team Status: Inactive Member Role Status Dates Dr. Devika Arcos MD Primary Care Prov ider, Family Provider, Referring Provider Active Dr. Eliz Cristobal MD Attending Provider Active Team Status: Inactive Member Role Status Dates Dr. Devika Arcos MD Primary Care Provider, Attendin g Provider Active Diesel Pile Driver Operator Relationship Specialty Start Date End Date Devika Arcos [address] [place] [address] [place] [address] PCP - General Family Medicine 07/19/21 Diesel Pile Driver Operator Relationship Specialty Start Date End Date Devika Arcos [address] [place] [address] PCP - General Family Medicine 07/19/21 Diesel Pile Driver Operator Relationship Specialty Start Date End Date Devika Arcos [address] [place] [address] [place] [address] PCP - General Family Medicine 07/19/21 Diesel Pile Driver Operator Relationship Specialty Start Date End Date Devika Arcos [address] [place] [address] [place] [address] PCP - General Family Medicine 07/19/21 Diesel Pile Driver Operator Relationship Specialty Start Date End Date Devika Arcos [address] [place] [address] [place] [address] PCP - General Family Medicine 07/19/21 Diesel Pile Driver Operator Relationship Specialty Start Date End Date Devika Arcos [address] [place] [address] [place] [address] PCP - General Family Medicine 07/19/21 Diesel Pile Driver Operator Relationship Specialty Start Date End Date Devika Arcos [address] [place] [address] PCP - General Family Medicine 07/19/21 [employer]el Pile Driver Operator Relationship Specialty Start Date End Date Devika Arcos [address] [place] [address] PCP - General Family Medicine 07/19/21 Diesel Pile Driver Operator Relationship Specialty Start Date End Date Devika Arcos [address] [place] [address] PCP - General Family Medicine 07/19/21 Diesel Pile Driver Operator Relationship Specialty Start Date End Date Devika Arcos [address] [place] [address] PCP - General Family Medicine 07/19/21 Team Status: Active Member Role/Relationship Status Dates Dr. Devika Arcos MD Family Provider Active Dr. Devika Arcos MD Primary Care Provider Active Team Status: Inactive Member Role/Relationship Status Dates Dr. Devika Arcos MD Primary Care Provider Active Start: July 22, 2024 End: July 22, 2024 JACKSON SULLIVAN Attending Provider Active Start: Ap ril 2024 End: July 22, 2024 NATE, PESEK Referring Provider Active Start: Ap ril 2024 End: July 22, 2024 Team Status: Inactive Member Role/Relationship Status Dates Dr. Devika Arcos MD Primary Care Provider Active Start: October 08, 2024 End: October 08, 2024 JACKSON SULLIVAN Attending Provider Active Start: Ju ly 2024 End: October 08, 2024 MIKE SULLIVANEK Referring Provider Active Start: Ju ly 2024 End: October 08, 2024 Diesel Pile Driver Operator Relationship Specialty Start Date End Date Devika Arcos [address] [place] [address] PCP - General Family Medicine 07/19/21 Team Status: Active Member Role/Relationship Status Dates Dr. Guillermo Acosta MD Primary Care Provider Acti ve Team Status: Active Member Role/Relationship Status Dates JACKSON COLIN Attending Provider Active Start: 2024 No Primary Care Physician Primary Care Provider Active Start: October 24, 2024 Team Status: Inactive Member Role/Relationship Status Dates Dr. Kvng Echeverria MD Emergency Provider Active Start: October 27, 2024 End: October 27, 2024 Dr. Guillermo Acosta MD Primary Care Provider Acti ve Start: October 27, 2024 End: October 27, 2024 (unrecognized sect ion and content) No Status Records FoundNo Status Records Found INFORMATION SOURCE (unrecogn ized section and content) DATE CREATED AUTHOR 10/20/2024 [facility] DATE CREATED AUTHOR 'S ORGANIZ ATION 10/26/2024 [facility] FOR RECORDS PERTAINING TO PATIENTS WHO ARE OR HAVE BEEN ENROLLED IN A CHEMICAL DEPENDENCY/SUBSTANCEABUSE PROGRAM, SOME INFORMATION MAY BE OMITTED. This clinical summary was aggregated from multiple sources. Caution should be exercised in using it in the provision of clinical care. This summary normalizes information from multiple sources, and as a consequence, information in this document may materially change the coding, format and clinical context of patient data. In addition, data may be omitted in some cases. CLINICAL DECISIONS SHOULD BE BASED ON THE PRIMARY CLINICAL RECORDS. [facility]. provides no warranty or guarantee of the accuracy or completeness of information in this document.
--- OUTSIDE RECORDS SUMMARY | 2024-10-27 22:59 | XMS RPT_ITS | CCD ---
Author Organization [facility] Care Team Providers Care Defence Intelligence Analyst Name Role Phone Vanessa Haynes Unavailable Unavailable [...] Primary Care Unavailable CRISTI PAZ Attending Provider Care Physician, No Primary Primary Care Provider [...] Drug Class(es) Dates Sig (Normalized) Sig (Original) [id number] 200 actuat albuterol 0.09 mg/actuat metered dose inhaler (7 sources) beta2-Adrenergic Agonist Start: 03-15-2022 End: 11-10-2022 take 2 puff(s) by inhalation every four hours as needed albuterol HFA (PROVENTIL HFA, VENTOLIN HFA) 90 mcg/actuation inhaler Indications: Viral URI with cough Inhale 2 Puffs as instructed every 4 hours as needed. Pt aware insurance requires prior auth- will pay cruz with [employer] coupon. 1 Each 0 03/15/2022 11/10/2022 Discontinued Comment on above: Inhale 2 Puffs as in structed every 4 hours as needed. Pt aware insurance requires prior auth- will pay cruz with [employer] coupon. aspirin 81 mg delayed release oral tablet (20 sources) Platelet Aggregation Inhibitor, Nonsteroidal Anti-inflammatory Drug Start: 09-04-2017 End: 04-09-2024 take 1 tablet by mouth once daily Aspirin 81 mg tablet,delayed release (DR/EC) Discontinued 81 mg PO DAILY September 04, 2017 12:00am April 09, 2024 4:44pm [employer] Start: 09-06-2016 End: 11-10-2022 aspirin, enteric coated (ASP IRIN, ENTERIC COATED) 81 mg EC tablet every 24 hours. 0 09/06/2016 11/10/2022 Discontinued Start: 09-06-2016 take 1 tablet by maninder th once daily ASPIRIN 325 MG TABS One tablet by mouth daily ASPIRIN [id number] Alexus Downey RN Start: 09-06-2016 take 1 tablet by maninder th once daily ASPIRIN EC 81 MG TBEC One tablet by mouth daily ASPIRIN [id number] Chemo Grewal MD Comment on above: q [...] One tablet by mouth twice daily CARVEDILOL [id number] Alexus Downey RN Comment on above: Take [...] One tablet by mouth daily CLOPIDOGREL BISULFATE [id number] Alexus Downey RN fluticasone propionate 0.05 mg/actuat metered dose nasal spray (4 sources) Corticosteroid Start: 10-31-2020 End: 09-15-2021 take 1 spray(s) nasal route once daily fluticasone (FLONASE ALLERGY RELIEF) 50 mcg/actuation nasal spray Indications: Viral illness Use 1 [place] in each nostril once daily. 1 Bottle 0 10/31/2020 09/15/2021 Discontinued (Course of therapy completed) Comment on above: Use 1 [place] in each nostril once daily. hydroCHLOROthiazide 25 mg / losartan potassium 100 mg oral tablet (20 sources) Thiazide Diuretic, Angiotensin 2 Receptor Ijeoma Start: 06-28-2018 End: 09-15-2021 losartan-hydrochloroth iazide (HYZAAR) 100-25 mg per tablet hydroCHLOROthiazide / Losartan Losartan/Hydrochloroth iazide [Losartan-Hctz 100-25 Mg Tab] 1 TAB PO DAILY June 28, 2018 Active 06-28-2018 [facility] (04435) 0 06/28/2018 09/15/2021 Discontinued (Course of therapy [...] PO DAILY June 28, 2018 Active 06-28-2018 [facility] (42351) Take 1 tablet by maninder th once [...] One tablet by mouth daily LOSARTAN POTASSIUM [id number] Chemo Grewal MD Drug Treatment Unknown - [...] disease (20 sources) Atherosclerotic heart disease of [place] coronary artery without angina pectoris; Translations: [Coronary atherosclerosis] Onset: 09-06-2016 09-06-2016 Chronic Comment on above: PTCA/BMS to distal R CA 08/2008 @ [facility] Disorders of lipid metabolism (20 sources) Hyperlipidemia; [...] Auto (Unsp spec) [#/Vol] 1.12 10*3/uL 0.83-4.51 [facility] Absolute neutrophil countOrd ered By: Kvng Echeverria on 10-27-2024 Neutrophils (Bld) [#/Vol] 5.0 10*3/uL 2.0-7.7 [facility] Anion gap in Serum or Plasma Ordered By: Kvng Echeverria on 10-27-2024 Anion gap [Moles/Vol] 12 mmol/L 5-15 [facility] Automated lymphocyte count a s percentage of total leukocytesOrdered By: Kvng Echeverria on 10-27-2024 Lymphocytes/100 WBC Auto (Unsp spec) 15.4 % Low 19-41 [facility] BUN/creatinine ratioOrdered By: Kvng Echeverria on 10-27-2024 Urea nitrogen/Creatinine [Mass ratio] 14.4 mg/mg 10-20 [facility] Basophil percentageOrdered B y: Kvng Echeverria on 10-27-2024 Basophils/100 WBC (Bld) 1.0 % 0-1 [facility] Blood manual differential co mment interpretation (narrative result)Ordered By: Kvng Echeverria on 10-27-2024 Manual differential comment Lopez (Bld) [Interp] See comment [facility] Comment on above: LARGE AND GIANT PLAT ELETS SEEN Carbon dioxide, total [Moles /volume] in Central venous bloodOrdered By: Kvng Echeverria on 10-27-2024 CO2 [Moles/Vol] 24.5 mmol/L 21.0-32.0 [facility] Chloride assayOrdered By: Tyra Echeverria on 10-27-2024 Chloride [Moles/Vol] 104 mmol/L 98-108 [facility] Eosinophil percentageOrdered By: Kvng Echeverria on 10-27-2024 Eosinophils/100 WBC (Bld) 2.9 % 0-5 [facility] Erythrocyte distribution wid th ratioOrdered By: Kvng Echeverria on 10-27-2024 Erythrocyte distribution width (RBC) [Ratio] 13.0 % 11.6-14.6 [facility] Erythrocyte distribution wid th standard deviationOrdered By: Kvng Echeverria on 10-27-2024 Erythrocyte distribution width (RBC) [Ratio] 39.8 fl 35.1-43.9 [facility] Glomerular filtration rate ( GFR) estimation/1.73 sq m using serum, plasma, or whole bOrdered By: Kvng Echeverria on 10-27-2024 GFR/1.73 sq M.predicted among non-blacks MDRD (S/P/Bld) [Vol rate/Area] 96 mL/min/{1.73_m2} >60 [facility] Comment on above: mL/min/1.73m2 CKD-EP I Creatinine Equation (2020) Hematocrit Auto (Bld) [Volum e fraction]Ordered By: Kvng Echeverria on 10-27-2024 Hematocrit (Bld) [Volume fraction] 41.5 % 40-54 [facility] Hemoglobin measurementOrdere d By: Kvng Echeverria on 10-27-2024 Hemoglobin (Bld) [Mass/Vol] 13.6 g/dL 13.0-16.5 [facility] Immature granulocytes/100 WB C Auto (Bld)Ordered By: Kvng Echeverria on 10-27-2024 Immature granulocytes/100 WBC (Bld) 0.700 % 0.0-0.9 [facility] Comment on above: IG% - Immature Granu locytes (promyelocytes, myelocytes and metamyelocytes) > 1% indicates that a LEFT SHIFT is Present. MCV (mean corpuscular volume ) determinationOrdered By: Kvng Echeverria on 10-27-2024 MCV (RBC) [Entitic vol] 85.6 fL 80-94 [facility] Mean corpuscular hemoglobin (MCH) determinationOrdered By: Kvng Echeverria on 10-27-2024 MCH (RBC) [Entitic mass] 28.0 pg 27.0-32.0 [facility] Mean corpuscular hemoglobin concentration (MCHC) determinationOrdered By: Kvng Ehceverria on 10-27-2024 MCHC (RBC) [Mass/Vol] 32.8 g/dL 32-36 [facility] Mean platelet volume determi nationOrdered By: Kvng Echeverria on 10-27-2024 Platelet mean volume (Bld) [Entitic vol] 12.0 fL 6.2-12.0 [facility] Monocyte percentageOrdered B y: Kvng Ecehverria on 10-27-2024 Monocytes/100 WBC (Bld) 11.7 % High 0-10 [facility] Neutrophil percentageOrdered By: Kvng Echeverria on 10-27-2024 Neutrophils/100 WBC (Bld) 68.3 % 47-70 [facility] Nucleated red blood cell per centageOrdered By: Kvng Echeverria on 10-27-2024 Nucleated RBC/100 WBC (Bld) [Ratio] 0 % 0-5 [facility] Platelet countOrdered By: Tyra Echeverria on 10-27-2024 Platelets (Bld) [#/Vol] 15 10*3/uL Low 150-450 [facility] Comment on above: CRITICAL VALUE FISHER D TO [CECILY MERRILL]10/27/24 1906 Jolly Doe.RESULTS READ BACK BY [SAME]. Platelet morphologyOrdered B y: Kvng Echeverria on 10-27-2024 Platelet morphology finding Nom (Bld) GIANT [facility] Potassium measurement (mass/ volume)Ordered By: Kvng Echeverria on 10-27-2024 Potassium (Unsp spec) [Mass/Vol] 3.8 mmol/L 3.3-5.1 [facility] RBC Auto (Bld) [#/Vol]Ordere d By: Kvng Echeverria on 10-27-2024 RBC (Bld) [#/Vol] 4.85 10*6/uL 4.6-6.2 [facility] Serum creatinine measurement (mass/volume)Ordered By: Kvng Echeverria on 10-27-2024 Creatinine [Mass/Vol] 0.88 mg/dL 0.70-1.20 [facility] Serum glucose measurement (m ass/volume)Ordered By: Kvng Echeverria on 10-27-2024 Glucose [Mass/Vol] 84 mg/dL 70-99 [facility] Serum or plasma calcium donovan urement (mass/volume)Ordered By: Kvng Echeverria on 10-27-2024 Calcium [Mass/Vol] 9.4 mg/dL 7.6-11.0 [facility] Serum or plasma urea nitroge n measurement (mass/volume)Ordered By: Kvng Echeverria on 10-27-2024 Urea nitrogen [Mass/Vol] 13 mg/dL 4-19 [facility] Sodium levelOrdered By: Lizandro Echeverria on 10-27-2024 Sodium [Moles/Vol] 140 mmol/L 133-145 [facility] White blood cell (WBC) count Ordered By: Kvng Echeverria on 10-27-2024 WBC (Bld) [#/Vol] 7.3 10*3/uL 4.4-11.0 [facility] Anion gap in Serum or Plasma on 10-24-2024 Anion gap [Moles/Vol] 11 mmol/L 5-15 [facility] BUN/creatinine ratioon 10-24 Urea nitrogen/Creatinine [Mass ratio] 14.1 mg/mg 10-20 [facility] Bilirubin, totalon Bilirubin [Mass/Vol] 0.54 mg/dL 0.00-1.30 [facility] Blood manual differential co mment interpretation (narrative result)on 10-24-2024 Manual differential comment Lopez (Bld) [Interp] SCANNED [facility] Comment on above: MARKED THROMBOCYTOPE KENDY CBC-Complete Blood Cnt No Di ffon 10-24-2024 PATH REV May foll Normal [facility] Comment on above: Order Comment: CRITI PERLA VALUE CALLED TO DASHAWN 10/24/24 1047 Lizbeth Ballard. RESULTS READ BACK BY SAME. Performed By: #### L 100.0500, L500.4050, L100.4500, L503.6030, L503.6550, L501.9520 #### [facility] [address] [place], [address] Carbon dioxide, total [Moles /volume] in Central venous bloodon 10-24-2024 CO2 [Moles/Vol] 25.9 mmol/L 21.0-32.0 [facility] Chloride assayon 10-24-2024 Chloride [Moles/Vol] 102 mmol/L 98-108 [facility] Comprehensive Metabolic Prof ilon 10-24-2024 Albumin [Mass/Vol] 4.4 g/dL Normal 3.4-4.8 [facility] Comment on above: Performed By: #### L 100.0500, L500.4050, L100.4500, L503.6030, L503.6550, L501.9520 #### [facility] [address] [place], [address] Albumin/Globulin [Mass ratio] 1.4 {ratio} Normal 0.9-2.4 [facility] Comment on above: Performed By: #### L 100.0500, L500.4050, L100.4500, L503.6030, L503.6550, L501.9520 #### [facility] [address] [place], [address] ALK PHOS 156 U/L High 40-129 [facility] Comment on above: Performed By: #### L 100.0500, L500.4050, L100.4500, L503.6030, L503.6550, L501.9520 #### [facility] [address] [place], [address] ALT [Catalytic activity/Vol] 51 U/L High <=46 [facility] Comment on above: Performed By: #### L 100.0500, L500.4050, L100.4500, L503.6030, L503.6550, L501.9520 #### [facility] [address] [place], [address] AST [Catalytic activity/Vol] 31 U/L Normal <=37 [facility] Comment on above: Performed By: #### L 100.0500, L500.4050, L100.4500, L503.6030, L503.6550, L501.9520 #### [facility] [address] [place], [address] Bilirubin [Mass/Vol] 0.54 mg/dL Normal 0.00-1.30 [facility] Comment on above: Performed By: #### L 100.0500, L500.4050, L100.4500, L503.6030, L503.6550, L501.9520 #### [facility] [address] [place], [address] BUN/CRE 14.1 RATIO Normal 10-20 [facility] Comment on above: Performed By: #### L 100.0500, L500.4050, L100.4500, L503.6030, L503.6550, L501.9520 #### [facility] [address] [place], [address] Calcium [Mass/Vol] 9.3 mg/dL Normal 7.6-11.0 [facility] Comment on above: Performed By: #### L 100.0500, L500.4050, L100.4500, L503.6030, L503.6550, L501.9520 #### [facility] [address] [place], [address] Chloride [Moles/Vol] 102 mmol/L Normal 98-108 [facility] Comment on above: Performed By: #### L 100.0500, L500.4050, L100.4500, L503.6030, L503.6550, L501.9520 #### [facility] [address] [place], [address] CO2 [Moles/Vol] 25.9 mmol/L Normal 21.0-32.0 [facility] Comment on above: Performed By: #### L 100.0500, L500.4050, L100.4500, L503.6030, L503.6550, L501.9520 #### [facility] [address] [place], [address] Creatinine [Mass/Vol] 0.89 mg/dL Normal 0.70-1.20 [facility] Comment on above: Performed By: #### L 100.0500, L500.4050, L100.4500, L503.6030, L503.6550, L501.9520 #### [facility] [address] [place], [address] GAP 11 Normal 5-15 [facility] Comment on above: Performed By: #### L 100.0500, L500.4050, L100.4500, L503.6030, L503.6550, L501.9520 #### [facility] [address] [place], [address] GFR/1.73 sq M.predicted among non-blacks MDRD (S/P/Bld) [Vol rate/Area] 96 mL/min/{1.73_m2} Normal >60 [facility] Comment on above: Result Comment: mL/m in/1.73m2 CKD-EPI Creatinine Equation (2020) Performed By: #### L 100.0500, L500.4050, L100.4500, L503.6030, L503.6550, L501.9520 #### [facility] [address] [place], [address] Globulin (S) [Mass/Vol] 3.1 g/dL Normal 2.2-4.2 [facility] Comment on above: Performed By: #### L 100.0500, L500.4050, L100.4500, L503.6030, L503.6550, L501.9520 #### [facility] [address] [place], [address] Glucose [Mass/Vol] 96 mg/dL Normal 70-99 [facility] Comment on above: Performed By: #### L 100.0500, L500.4050, L100.4500, L503.6030, L503.6550, L501.9520 #### [facility] [address] [place], [address] Potassium [Moles/Vol] 4.4 mmol/L Normal 3.3-5.1 [facility] Comment on above: Performed By: #### L 100.0500, L500.4050, L100.4500, L503.6030, L503.6550, L501.9520 #### [facility] [address] [place], [address] Sodium [Moles/Vol] 139 mmol/L Normal 133-145 [facility] Comment on above: Performed By: #### L 100.0500, L500.4050, L100.4500, L503.6030, L503.6550, L501.9520 #### [facility] [address] [place], [address] T PROT 7.4 g/dL Normal 5.9-8.4 [facility] Comment on above: Performed By: #### L 100.0500, L500.4050, L100.4500, L503.6030, L503.6550, L501.9520 #### [facility] [address] [place], [address] Urea nitrogen [Mass/Vol] 13 mg/dL Normal 4-19 [facility] Comment on above: Performed By: #### L 100.0500, L500.4050, L100.4500, L503.6030, L503.6550, L501.9520 #### [facility] [address] [place], [address] Differential Commenton 10-24 SMEAR COMMENT SCANNED Normal [facility] Comment on above: Order Comment: CRITI PERLA VALUE CALLED TO [id number]/01/25 Sarina Ballard.RESULTS READ BACK BY SAME. Result Comment: PRAMOD ED THROMBOCYTOPENIA Performed By: #### L 100.0500, L500.4050, L100.4500, L503.6030, L503.6550, L501.9520 ####[facility] [address] [place], [address] Erythrocyte distribution wid th ratioon 10-24-2024 Erythrocyte distribution width (RBC) [Ratio] 13.1 % 11.6-14.6 [facility] Erythrocyte distribution wid th standard deviationon 10-24-2024 Erythrocyte distribution width (RBC) [Ratio] 40.7 fl 35.1-43.9 [facility] Ferritinon 10-24-2024 Ferritin [Mass/Vol] 323 ng/mL Normal 37-417 [facility] Comment on above: Performed By: #### L 100.0500, L500.4050, L100.4500, L503.6030, L503.6550, L501.9520 #### [facility] [address] [place], [address] Glomerular filtration rate ( GFR) estimation/1.73 sq m using serum, plasma, or whole bon 10-24-2024 GFR/1.73 sq M.predicted among non-blacks MDRD (S/P/Bld) [Vol rate/Area] 96 mL/min/{1.73_m2} >60 [facility] Comment on above: mL/min/1.73m2 CKD-EP I Creatinine Equation (2020) Hematocrit Auto (Bld) [Volum e fraction]on 10-24-2024 Hematocrit (Bld) [Volume fraction] 41.4 % 40-54 [facility] Hemoglobin measurementon Hemoglobin (Bld) [Mass/Vol] 13.9 g/dL 13.0-16.5 [facility] Iron measurement (mass/mass) on 10-24-2024 Iron (Unsp spec) [Mass/Mass] 63 ug/dL Low 65-175 [facility] Iron+Iron Binding Capacityon 10-24-2024 Iron [Mass/Vol] 63 ug/dL Low 65-175 [facility] Comment on above: Performed By: #### L 100.0500, L500.4050, L100.4500, L503.6030, L503.6550, L501.9520 #### [facility] [address] [place], [address] IRON SATURATION 21.0 Normal 9-55 [facility] Comment on above: Performed By: #### L 100.0500, L500.4050, L100.4500, L503.6030, L503.6550, L501.9520 #### [facility] [address] [place], [address] TIBC 305 ug/dL Normal 250-450 [facility] Comment on above: Performed By: #### L 100.0500, L500.4050, L100.4500, L503.6030, L503.6550, L501.9520 #### [facility] [address] [place], [address] UIBC 242 ug/dL Normal 228-428 [facility] Comment on above: Performed By: #### L 100.0500, L500.4050, L100.4500, L503.6030, L503.6550, L501.9520 #### [facility] [address] [facility] [place], [address] Laboratory - Chemistry and C hemistry - challengeon 10-24-2024 AST [Catalytic activity/Vol] 31 U/L <38 [facility] MCV (mean corpuscular volume ) determinationon 10-24-2024 MCV (RBC) [Entitic vol] 85.0 fL 80-94 [facility] Mean corpuscular hemoglobin (MCH) determinationon 10-24-2024 MCH (RBC) [Entitic mass] 28.5 pg 27.0-32.0 [facility] Mean corpuscular hemoglobin concentration (MCHC) determinationon 10-24-2024 MCHC (RBC) [Mass/Vol] 33.6 g/dL 32-36 [facility] Mean platelet volume determi nationon 10-24-2024 Platelet mean volume (Bld) [Entitic vol] 11.3 fL 6.2-12.0 [facility] No Panel Informationon 10-24 Unsaturated Iron Binding Capacity 242 ug/dL 228-428 [facility] Platelet counton 10-24-2024 Platelets (Bld) [#/Vol] 14 10*3/uL Low 150-450 [facility] Potassium measurement (mass/ volume)on 10-24-2024 Potassium (Unsp spec) [Mass/Vol] 4.4 mmol/L 3.3-5.1 [facility] RBC Auto (Bld) [#/Vol]on RBC (Bld) [#/Vol] 4.87 10*6/uL 4.6-6.2 [facility] Review by pathologiston Pathologist review Lopez (Unsp spec) [Interp] July [facility] Serum creatinine measurement (mass/volume)on 10-24-2024 Creatinine [Mass/Vol] 0.89 mg/dL 0.70-1.20 [facility] Serum globulin measurementon 10-24-2024 Globulin (S) [Mass/Vol] 3.1 g/dL 2.2-4.2 [facility] Serum glucose measurement (m ass/volume)on 10-24-2024 Glucose [Mass/Vol] 96 mg/dL 70-99 [facility] Serum or plasma alanine anderson otransferase (ALT) measurementon 10-24-2024 ALT [Catalytic activity/Vol] 51 U/L High <47 [facility] Serum or plasma albumin donovan urement (mass/volume)on 10-24-2024 Albumin [Mass/Vol] 4.4 g/dL 3.4-4.8 [facility] Serum or plasma albumin/glob ulin mass ratioon 10-24-2024 Albumin/Globulin [Mass ratio] 1.4 {ratio} 0.9-2.4 [facility] Serum or plasma alkaline red sphatase measurementon 10-24-2024 ALP [Catalytic activity/Vol] 156 U/L High 40-129 [facility] Serum or plasma calcium donovan urement (mass/volume)on 10-24-2024 Calcium [Mass/Vol] 9.3 mg/dL 7.6-11.0 [facility] Serum or plasma ferritin cody surement (mass/volume)on 10-24-2024 Ferritin [Mass/Vol] 323 ng/mL 37-417 [facility] Serum or plasma iron saturat ion measurement (mass fraction)on 10-24-2024 Iron saturation [Mass fraction] 21.0 % 9-55 [facility] Serum or plasma urea nitroge n measurement (mass/volume)on 10-24-2024 Urea nitrogen [Mass/Vol] 13 mg/dL 4-19 [facility] Sodium levelon 10-24-2024 Sodium [Moles/Vol] 139 mmol/L 133-145 [facility] TSH DL <= 0.005 mIU/L Qnon 0 10-24-2024 TSH Qn 1.760 uIU/mL 0.300-4.200 [facility] Thyroid Stim Hormone (TSH)on 10-24-2024 TSH 1.760 uIU/mL Normal 0.300-4.200 [facility] Comment on above: Performed By: #### L 100.0500, L500.4050, L100.4500, L503.6030, L503.6550, L501.9520 #### [facility] [address] [place], [place], [address] Total proteinon 10-24-2024 Protein [Mass/Vol] 7.4 g/dL 5.9-8.4 [facility] White blood cell (WBC) count on 10-24-2024 WBC (Bld) [#/Vol] 6.7 10*3/uL 4.4-11.0 [facility] L3410.9992on 10-15-2024 [facility] Misc. COMMENT Normal . [facility] Comment on above: Order Comment: [id number] DIHYDROTESTOSTERONE Result Comment: Test Ordered: [id number] Magnesium, RBC Test(s) 474111-Cjugerdzd, RBC was developed and its performance characteristics determined by [facility]. It has not been cleared or approved by the Food and Drug Administration. Magnesium, RBC 6.9 mg/dL Reference Range: 3.7-7.0 Performed at: - [address] [id number] [place] Car Clerk: Margarito Sanders MD, Phone: [phone] Performed at: - [facility] [id number] [place] [employer] Clerk: Yg Perrin PhD, Phone: [phone] Performed By: #### L 3410.9992 #### [facility] [address] [place], [place], [address] L3410.9994on 10-11-2024 [facility] Misc. 2 COMMENT Normal . [facility] Comment on above: Order Comment: [id number] 2 DIHYDROTESTOSTERONE Result Comment: Test Ordered: [id number] Apolipoprotein B Apolipoprotein B 91 [H ] mg/dL Reference Range: <90 Desirable < 90 Borderline High 90 - 99 High 100 - 130 Very High >130 ASCVD RISK THERAPEUTIC TARGET CATEGORY APO B (mg/dL) Very High Risk <80 (if extreme risk <70) High Risk <90 Moderate Risk <90 Performed at: - [facility] [id number] [place] Clerk: Margarito Sanders MD, Phone: [phone] Performed at: [facility] [id number] [place] [employer] Clerk: Yg Perrin PhD, Phone: [phone] Performed By: #### L 3410.9992 #### [facility] [address] [facility] [place], [place], [id number] Anion gap in Serum or Plasma on 10-08-2024 Anion gap [Moles/Vol] 12 mmol/L 5-15 [facility] BUN/creatinine ratioon 10-08 Urea nitrogen/Creatinine [Mass ratio] 15.7 mg/mg 10-20 [facility] Bilirubin Test strip Ql (U)o n 10-08-2024 Bilirubin Ql (U) Negative Negative [facility] Bilirubin, totalon Bilirubin [Mass/Vol] 0.60 mg/dL 0.00-1.30 [facility] Blood manual differential co mment interpretation (narrative result)on 10-08-2024 Manual differential comment Lopez (Bld) [Interp] SCANNED [facility] Comment on above: MODERATE THROMBOCYTO PENIA NOTED CBC-Complete Blood Cnt No Di ffon 10-08-2024 Erythrocyte distribution width (RBC) [Ratio] 13.0 % Normal 11.6-14.6 [facility] Comment on above: Performed By: #### L 3410.9992 #### [facility] [address] [place], [place], [id number] Hematocrit (Bld) [Volume fraction] 41.7 % Normal 40-54 [facility] Comment on above: Performed By: #### L 3410.9992 #### [facility] [address] [place], [address] Hemoglobin (Bld) [Mass/Vol] 13.9 g/dL Normal 13.0-16.5 [facility] Comment on above: Performed By: #### L 3410.9992 #### [facility] [address] [place], [address] MCH (RBC) [Entitic mass] 28.5 pg Normal 27.0-32.0 [facility] Comment on above: Performed By: #### L 3410.9992 #### [facility] [address] [place], [address] MCHC (RBC) [Mass/Vol] 33.3 g/dL Normal 32-36 [facility] Comment on above: Performed By: #### L 3410.9992 #### [facility] [address] [place], [address] MCV (RBC) [Entitic vol] 85.6 fL Normal 80-94 [facility] Comment on above: Performed By: #### L 3410.9992 #### [facility] [address] [place] [place] [address] Platelet mean volume (Bld) [Entitic vol] 10.4 fL Normal 6.2-12.0 [facility] Comment on above: Performed By: #### L 3410.9992 #### [facility] [address] [place], [address] Platelets (Bld) [#/Vol] 93 10*3/uL Low 150-450 [facility] Comment on above: Performed By: #### L 3410.9992 #### [facility] [address] [place], [address] RBC (Bld) [#/Vol] 4.87 10*6/uL Normal 4.6-6.2 [facility] Comment on above: Performed By: #### L 3410.9992 #### [facility] [address] [place], [address] RDW SD 40.5 fl Normal 35.1-43.9 [facility] Comment on above: Performed By: #### L 341.9992 #### [facility] [address] [place], [address] WBC (Bld) [#/Vol] 7.1 10*3/uL Normal 4.4-11.0 [facility] Comment on above: Performed By: #### L 341.9992 #### [facility] [address] [place], [address] Carbon dioxide, total [Moles /volume] in Central venous bloodon 10-08-2024 CO2 [Moles/Vol] 24.0 mmol/L 21.0-32.0 [facility] Chloride assayon 10-08-2024 Chloride [Moles/Vol] 101 mmol/L 98-108 [facility] Comprehensive Metabolic Prof ilon 10-08-2024 Albumin [Mass/Vol] 4.2 g/dL Normal 3.4-4.8 [facility] Comment on above: Performed By: #### L 341.9992 #### [facility] [address] [place], [address] Albumin/Globulin [Mass ratio] 1.2 {ratio} Normal 0.9-2.4 [facility] Comment on above: Performed By: #### L 341.9992 #### [facility] [address] [place], [address] ALK PHOS 147 U/L High 40-129 [facility] Comment on above: Performed By: #### L 341.9992 #### [facility] [address] [place], [address] ALT [Catalytic activity/Vol] 50 U/L High <=46 [facility] Comment on above: Performed By: #### L 3409.9992 #### [facility] [address] [place], [address] AST [Catalytic activity/Vol] 32 U/L Normal <=37 [facility] Comment on above: Performed By: #### L 3410.9992 #### [facility] [address] [place], [address] Bilirubin [Mass/Vol] 0.60 mg/dL Normal 0.00-1.30 [facility] Comment on above: Performed By: #### L 3410.9992 #### [facility] [address] [place], [address] BUN/CRE 15.7 RATIO Normal 10-20 [facility] Comment on above: Performed By: #### L 3410.9992 #### [facility] [address] [place], [address] Calcium [Mass/Vol] 9.4 mg/dL Normal 7.6-11.0 [facility] Comment on above: Performed By: #### L 3410.9992 #### [facility] [address] [place], [address] Chloride [Moles/Vol] 101 mmol/L Normal 98-108 [facility] Comment on above: Performed By: #### L 3410.9992 #### [facility] [address] [place], [address] CO2 [Moles/Vol] 24.0 mmol/L Normal 21.0-32.0 [facility] Comment on above: Performed By: #### L 3410.9992 #### [facility] [address] [place], [address] Creatinine [Mass/Vol] 0.96 mg/dL Normal 0.70-1.20 [facility] Comment on above: Performed By: #### L 3410.9992 #### [facility] [address] [place], [address] GAP 12 Normal 5-15 [facility] Comment on above: Performed By: #### L 3410.9992 #### [facility] [address] [place], [address] GFR/1.73 sq M.predicted among non-blacks MDRD (S/P/Bld) [Vol rate/Area] 88 mL/min/{1.73_m2} Normal >60 [facility] Comment on above: Result Comment: mL/m in/1.73m2 CKD-EPI Creatinine Equation (2020) Performed By: #### L 3410.9992 #### [facility] [address] [place], [address] Globulin (S) [Mass/Vol] 3.4 g/dL Normal 2.2-4.2 [facility] Comment on above: Performed By: #### L 3410.9992 #### [facility] [address] [place], [address] Glucose [Mass/Vol] 96 mg/dL Normal 70-99 [facility] Comment on above: Performed By: #### L 3410.9992 #### [facility] [address] [place], [address] Potassium [Moles/Vol] 4.1 mmol/L Normal 3.3-5.1 [facility] Comment on above: Performed By: #### L 3410.9992 #### [facility] [address] [place], [address] Sodium [Moles/Vol] 137 mmol/L Normal 133-145 [facility] Comment on above: Performed By: #### L 3410.9992 #### [facility] [address] [place], [address] T PROT 7.6 g/dL Normal 5.9-8.4 [facility] Comment on above: Performed By: #### L 3410.9992 #### [facility] [address] [place], [place], [address] Urea nitrogen [Mass/Vol] 15 mg/dL Normal 4-19 [facility] Comment on above: Performed By: #### L 3410.9992 #### [facility] [address] [place], [place], [address] Differential Commenton 10-08 SMEAR COMMENT SCANNED Normal [facility] Comment on above: Result Comment: MODE RATE THROMBOCYTOPENIA NOTED Performed By: #### L 3410.9992 #### [facility] [address] [place], [place], [address] Erythrocyte distribution wid th ratioon 10-08-2024 Erythrocyte distribution width (RBC) [Ratio] 13.0 % 11.6-14.6 [facility] Erythrocyte distribution wid th standard deviationon 10-08-2024 Erythrocyte distribution width (RBC) [Ratio] 40.5 fl 35.1-43.9 [facility] Glomerular filtration rate ( GFR) estimation/1.73 sq m using serum, plasma, or whole bon 10-08-2024 GFR/1.73 sq M.predicted among non-blacks MDRD (S/P/Bld) [Vol rate/Area] 88 mL/min/{1.73_m2} >60 [facility] Comment on above: mL/min/1.73m2 CKD-EP I Creatinine Equation (2020) Hematocrit Auto (Bld) [Volum e fraction]on 10-08-2024 Hematocrit (Bld) [Volume fraction] 41.7 % 40-54 [facility] Hemoglobin measurementon Hemoglobin (Bld) [Mass/Vol] 13.9 g/dL 13.0-16.5 [facility] Ketones Test strip Ql (U)on 10-08-2024 Ketones Ql (U) Negative Negative [facility] L3200.2000on 10-08-2024 ADD. COMMENT Normal [facility] Comment on above: Result Comment: TEST ORDERED WRONG Performed By: #### L 3410.9992 #### [facility] [address] [place], [address] APOE GENOTYPE Normal [facility] Comment on above: Result Comment: TEST ORDERED WRONG Performed By: #### L 3410.9992 #### [facility] [address] [place], [address] BACKGROUND INFO Normal [facility] Comment on above: Result Comment: TEST ORDERED WRONG Performed By: #### L 3410.9992 #### [facility] [address] [place], [address] LIMITATIONS Normal [facility] Comment on above: Result Comment: TEST ORDERED WRONG Performed By: #### L 3410.9992 #### [facility] [address] [place], [address] METHODOLOGY Normal [facility] Comment on above: Result Comment: TEST ORDERED WRONG Performed By: #### L 3410.9992 #### [facility] [address] [place], [address] REFERENCES Normal [facility] Comment on above: Result Comment: TEST ORDERED WRONG Performed By: #### L 3410.9992 #### [facility] [address] [place], [address] RESULT RELEASE Normal [facility] Comment on above: Result Comment: TEST ORDERED WRONG Performed By: #### L 3410.9992 #### [facility] [address] [place], [address] Laboratory - Chemistry and C hemistry - challengeon 10-08-2024 AST [Catalytic activity/Vol] 32 U/L <38 [facility] MCV (mean corpuscular volume ) determinationon 10-08-2024 MCV (RBC) [Entitic vol] 85.6 fL 80-94 [facility] Mean corpuscular hemoglobin (MCH) determinationon 10-08-2024 MCH (RBC) [Entitic mass] 28.5 pg 27.0-32.0 [facility] Mean corpuscular hemoglobin concentration (MCHC) determinationon 10-08-2024 MCHC (RBC) [Mass/Vol] 33.3 g/dL 32-36 [facility] Mean platelet volume determi nationon 10-08-2024 Platelet mean volume (Bld) [Entitic vol] 10.4 fL 6.2-12.0 [facility] Microscopic analysis of urin e for red blood cells (RBC)on 10-08-2024 Microscopic analysis of urine for red blood cells (RBC) 0 SEEN /hpf 0-5 [facility] Mucus LM Ql (Urine sed)on Mucus Ql (Urine sed) 0 SEEN /hpf [facility] Nitrite Test strip Ql (U)on 10-08-2024 Nitrite Ql (U) Negative Negative [facility] Platelet counton 10-08-2024 Platelets (Bld) [#/Vol] 93 10*3/uL Low 150-450 [facility] Potassium measurement (mass/ volume)on 10-08-2024 Potassium (Unsp spec) [Mass/Vol] 4.1 mmol/L 3.3-5.1 [facility] Protein Test strip Ql (U)on 10-08-2024 Protein Ql (U) Negative Negative [facility] RBC Auto (Bld) [#/Vol]on RBC (Bld) [#/Vol] 4.87 10*6/uL 4.6-6.2 [facility] Serum creatinine measurement (mass/volume)on 10-08-2024 Creatinine [Mass/Vol] 0.96 mg/dL 0.70-1.20 [facility] Serum globulin measurementon 10-08-2024 Globulin (S) [Mass/Vol] 3.4 g/dL 2.2-4.2 [facility] Serum glucose measurement (m ass/volume)on 10-08-2024 Glucose [Mass/Vol] 96 mg/dL 70-99 [facility] Serum or plasma alanine anderson otransferase (ALT) measurementon 10-08-2024 ALT [Catalytic activity/Vol] 50 U/L High <47 [facility] Serum or plasma albumin donovan urement (mass/volume)on 10-08-2024 Albumin [Mass/Vol] 4.2 g/dL 3.4-4.8 [facility] Serum or plasma albumin/glob ulin mass ratioon 10-08-2024 Albumin/Globulin [Mass ratio] 1.2 {ratio} 0.9-2.4 [facility] Serum or plasma alkaline red sphatase measurementon 10-08-2024 ALP [Catalytic activity/Vol] 147 U/L High 40-129 [facility] Serum or plasma calcium donovan urement (mass/volume)on 10-08-2024 Calcium [Mass/Vol] 9.4 mg/dL 7.6-11.0 [facility] Serum or plasma urea nitroge n measurement (mass/volume)on 10-08-2024 Urea nitrogen [Mass/Vol] 15 mg/dL 4-19 [facility] Sodium levelon 10-08-2024 Sodium [Moles/Vol] 137 mmol/L 133-145 [facility] Squamous epithelial cells de tection in urine sediment by light microscopyon 10-08-2024 Epithelial cells.squamous LM Ql (Urine sed) 0 SEEN /hpf 0-5 [facility] Stool Occult Blood iFOBon STOB Negative Normal [facility] Comment on above: Performed By: #### L 7240.9992 #### [facility] [address] [place], [place], [address] Stool gastrointestinal hemog lobin detection by immunologic methodon 10-08-2024 Lower GI hemoglobin IA Ql (Stl) [facility] TSH DL <= 0.005 mIU/L Qnon 0 10-08-2024 TSH Qn 2.060 uIU/mL 0.300-4.200 [facility] Thyroid Stim Hormone (TSH)on 10-08-2024 TSH 2.060 uIU/mL Normal 0.300-4.200 [facility] Comment on above: Performed By: #### L 3410.9992 #### [facility] [address] [place], [place], [address] Total proteinon 10-08-2024 Protein [Mass/Vol] 7.6 g/dL 5.9-8.4 [facility] Urinalysis, Completeon 10-08 BACTERIA 0 SEEN Normal None Seen [facility] Comment on above: Order Comment: 32072 2 DIHYDROTESTOSTERONE Performed By: #### L 3410.9992 #### [facility] [address] [place], [address] EPI,SQUAMOUS 0 SEEN Normal 0-5 [facility] Comment on above: Order Comment: 40215 2 DIHYDROTESTOSTERONE Performed By: #### L 3410.9992 #### [facility] [address] [place], [address] Mucus Ql (Urine sed) 0 SEEN Normal [facility] Comment on above: Order Comment: 35404 2 DIHYDROTESTOSTERONE Performed By: #### L 3410.9992 #### [facility] [address] [place], [address] RBC 0 SEEN Normal 0-5 [facility] Comment on above: Order Comment: 57858 2 DIHYDROTESTOSTERONE Performed By: #### L 3410.9992 #### [facility] [address] [place], [address] WBC 0 SEEN Normal 0-[address] [place] [address] Comment on above: Order Comment: 03899 2 DIHYDROTESTOSTERONE Performed By: #### L 3410.9992 #### [facility] [address] [place], [address] Urine clarityon 10-08-2024 Clarity (U) Clear Clear [facility] Urine color determinationon 10-08-2024 Color (U) Yellow Yellow [facility] Urine glucose detectionon Glucose Ql (U) Normal mg/dl Normal [facility] Urine leukocyte esterase det ection by dipstickon 10-08-2024 Leukocyte esterase Test strip Ql (U) Negative Negative [facility] Urine pHon 10-08-2024 pH (U) 7.0 [pH] 5.0 - 8.0 [facility] Urine sediment bacteria coun t by microscopy (number/high power field)on 10-08-2024 Bacteria LM.HPF (Urine sed) [#/Area] 0 /[HPF] None Seen [facility] Urine specific gravity measu rementon 10-08-2024 Specific gravity (U) [Rel density] 1.010 1.002-1.030 [facility] Urine urobilinogen measureme nton 10-08-2024 Urobilinogen Ql (U) Normal mg/dl Normal [facility] White blood cell (WBC) count on 10-08-2024 WBC (Bld) [#/Vol] 7.1 10*3/uL 4.4-11.0 [facility] White blood cell counton White blood cell count 0 SEEN /hpf 0-5 [facility] CNOVon 08-08-2024 CNOV Office Visit (VAZQUEZ ) -------- MELANIE NAVARRO ([id number]) 1960 M Date Time Provider Department 08/08/24 [...] Albumin (g (more content not included)... Normal [facility] 08-08-2024 CNPN Telephone (SLEWST) -------- MELANIE NAVARRO ([id number]) 1960 M Date Time Provider Department 08/08/24 JEREMIAS DEMPSEY JR During your visit today, we recorded the following information about you: Rosi Mcnair OCCA 08/08/2024 4:09 PM Signed TC to Dr. Page's office, no answer as office is currently closed. Need to get copy of patients sleep study from 10 years ago to send to [facility] with order for new Cpap device. All other documents printed and in holding folder at nurses desk to be faxed. Please try to call on next business day. Thank you. LEV Galvan [place], OCCA 08/11/2024 9:54 AM Signed TC to Dr. Page's office with no answer. Unable to leave at this time. Please try again later. LEV Galavn [place], OCCA 08/26/2024 10:38 AM Signed Faxed request for sleep study results to Dr. Page's office at [phone]. Please watch for fax. LEV Galvan Barbara, LPN 08/27/2024 1:22 PM Signed Received sleep study results from Dr. Miles. KAYCEE Stokes [place], OCCA 08/29/2024 5:09 PM Signed Orders faxed to [facility]. LEV Galvan Allergies As of Date: 08/08/2024 (No Known Allergies) Date Reviewed: 08/08/2024 Reviewed by: Jeremias Dempsey Jr., MD - Fully Assessed Reason for Visit: Request Outside Medical Records [[id number]] Cmt: Sleep Study Prescriptions as of 08/29/2024 [...] Encounter Status:Closed by JORGE DUTTON [facility]27/[facility] [employer] [facility] -------- MELANIE NAVARRO ([id number]) 1960 M Date Time Provider Department 08/07/24 [...] Status:Closed by ROSI MCNAIR on 08/07/24 Normal [facility] DHEA Sulfateon 08-01-2024 DHEA SULFATE 95.2 ug/dL Normal 48.9-344.2 [facility] Comment on above: Order Comment: Test( s) 806574-Tydqonk T3, Serumwas developed and its performance characteristicsdetermined by [facility]. It has not been cleared or approvedby the Food and Drug Administration.N Performed By: #### L 501.2276 #### [facility] [address] [place], [address] Insulin Levelon 08-01-2024 INSULIN,FASTING 18.6 uIU/mL Normal 2.6-24.9 [facility] Comment on above: Order Comment: Test( s) 792395-Ohbytfv T3, Serumwas developed and its performance characteristicsdetermined by [employer]. It has not been cleared or approvedby the Food and Drug Administration. Performed By: #### L 501.2276 #### [facility] [address] [place], [address] Lipoprotein Aon 08-01-2024 Lipoprotein a [Moles/Vol] 22.2 nmol/L Normal <75.0 [facility] Comment on above: Order Comment: Test( s) 250159-Boeuqls T3, Serumwas developed and its performance characteristicsdetermined by [employer]. It has not been cleared or approvedby the Food and Drug Administration. Result Comment: Note : Values greater than or equal to 75.0 nmol/L may indicate an independent risk factor for CHD, but must be evaluated with caution when applied to non- populations due to the influence of genetic factors on Lp(a) across ethnicities. Performed By: #### L 501.2276 #### [facility] [address] [place], [place], [address] Sex Hormone-binding Globulin on 08-01-2024 SHBG 36.6 nmol/L Normal 19.3-76.4 [facility] Comment on above: Order Comment: Test( s) 780147-Ktmfbwz T3, Serumwas developed and its performance characteristicsdetermined by [employer]. It has not been cleared or approvedby the Food and Drug Administration. Result Comment: Perf ormed at: [address] [id number] [employer] Car Clerk: Yg Perrin PhD, Phone: [phone] Performed at: [address] [id number] [employer] [employer] Clerk: Margarito Sanders MD, Phone: [phone] Performed By: #### L 501.2276 #### [facility] [address] [place], [address] T3 Reverseon 08-01-2024 T3 REVERSE 15.7 ng/dL Normal 9.2-24.1 [facility] Comment on above: Order Comment: Test( s) 148421-Fhacsxn T3, Serumwas developed and its performance characteristicsdetermined by [facility]. It has not been cleared or approvedby the Food and Drug Administration.N Performed By: #### L 501.2276 #### [facility] [address] [place], [address] Testosterone, Total / Freeon 08-01-2024 TESTOSTER,FREE 3.12 ng/dL Abnormal 5.00-21.00 [facility] Comment on above: Order Comment: Test( s) 077134-Mkqgqmg T3, Serumwas developed and its performance characteristicsdetermined by [facility]. It has not been cleared or approvedby the Food and Drug Administration.N Performed By: #### L 501.2276 #### [facility] [address] [place], [address] TESTOSTER,TOTAL 105 ng/dL Low 264-916 [facility] Comment on above: Order Comment: Test( s) 876906-Iefivcx T3, Serumwas developed and its performance characteristicsdetermined by [employer]. It has not been cleared or approvedby the Food and Drug Administration.N Result Comment: Adul t male reference interval is based on a population of healthy nonobese males (BMI <30) between 19 and 39 years old. Remberto et.al. JCEM 2017,102;6379-3524. PMID: 06592114. Performed By: #### L 501.2276 #### [facility] [address] [place], [address] TESTOSTERONE,%F 2.97 Normal 1.50-4.20 [facility] Comment on above: Order Comment: Test( s) 798784-Epkvqrn T3, Serumwas developed and its performance characteristicsdetermined by [employer]. It has not been cleared or approvedby the Food and Drug Administration.N Performed By: #### L 501.2276 #### [facility] [address] [place], [place], [address] Thyroglobulin w/Anti-TG ABon 08-01-2024 Anti-TG AB < 1.0 Normal 0.0-0.9 [facility] Comment on above: Order Comment: Test( s) 890763-Cuquajb T3, Serumwas developed and its performance characteristicsdetermined by [employer]. It has not been cleared or approvedby the Food and Drug Administration. Result Comment: Thyr oglobulin Antibody measured by Mike Ct Methodology It should be noted that the presence of thyroglobulin antibodies may not be pathogenic nor diagnostic, especially at very low levels. The assay infantry weapons officer has found that four percent of individuals without evidence of thyroid disease or autoimmunity will have positive TgAb levels up to 4 IU/mL. Performed By: #### L 501.2276 #### [facility] [address] [place], [address] THYROGLOB QUANT 9.7 ng/mL Normal 1.4-29.2 [facility] Comment on above: Order Comment: Test( s) 859707-Iozqfke T3, Serumwas developed and its performance characteristicsdetermined by [employer]. It has not been cleared or approvedby [...] quantitation is 0.1 ng/mL Thyroglobulin measured by PeriGen Ct Immunometric Assay Performed By: #### L 501.2276 #### [facility] [address] [place], [address] Thyroid Peroxidase ABon 050 THYR PEROX AB < 9 Normal 0-34 [facility] Comment on above: Order Comment: Test( s) 337229-Dnalrws T3, Serumwas developed and its performance characteristicsdetermined by [employer]. It has not been cleared or approvedby the Food and Drug Administration. Performed By: #### L 501.2276 #### [facility] [address] [facility] [place], [place], [address] L3410.9992on 07-30-[address] [facility]. COMMENT Normal . [facility] Comment on above: Order Comment: 74469 2 DIHYDROTESTOSTERONE Result Comment: Test Ordered: [id number] Dihydrotestosterone Dihydrotestosterone 8.5 [L ] ng/dL Reference Range: . This test was developed and its performance characteristics determined by [employer]. It has not been cleared or approved by the Food and Drug Administration. Reference Range: Adult Male: 30 - 85 Performed at: [facility] [address] [place] [id number] [employer] [employer] Clerk: Agapito Delgadillo MD, Phone: [phone] Performed at: [address] [id number] [employer] [employer] Clerk: Yg Perrin PhD, Phone: [phone] Performed By: #### L 3410.9992 #### [facility] [address] [facility]. [place], [place], [address] L3410.9992on 07-25-[address] [facility]. COMMENT Normal . [facility] Comment on above: Order Comment: [id number] 3IGF Result Comment: Test Ordered: [id number] IGF-1 Insulin-Like Growth Factor I 76 ng/mL Reference Range: 64-240 Performed at: [address] [id number] [employer] [employer] Clerk: Margarito Sanders MD, Phone: [phone] Performed at: [address] [id number] [employer] [employer] Clerk: Yg Perrin PhD, Phone: [phone] Performed By: #### L 501.2276 #### [facility] [address] [place], [place], [address] L803.0600on 07-24-2024 HOMOCYSTEINE 14.0 umol/L Normal 0.0-17.2 [facility] Comment on above: Performed By: #### L 501.2276 #### [facility] [address] [place], [place], [address] PROGESTERONE 4317on 07-25-19 25 PROGESTERONE 0.5 ng/mL Normal 0.0-0.5 [facility] Comment on above: Order Comment: N Result Comment: Perf ormed at: [facility] [id number] [employer] [employer] Clerk: Yg Perrin PhD, Phone: [phone] Performed By: #### L 3410.9992, L503.6030, L3100.5310, L100.0500, L3300.7100, L3300.6900, L503.6550, L3300.6820, L509.6001, L501.5200, L3400.4600, L506.0400, L3300.3500, L500.4050, L3300.1750, L501.1400, L3300.1500, L803.0600, L500.4100, L801.2600, L501.9940, L501.6710, L501.9520, L501.9985, L501.49020, L506.0200, L503.0106, L3100.5060, L506.1001 ####[facility] [id number] [facility] [address] [place], [place], [address] Anion gap in Serum or Plasma on 07-22-2024 Anion gap [Moles/Vol] 12 mmol/L 5-15 [facility] BUN/creatinine ratioon 07-22 Urea nitrogen/Creatinine [Mass ratio] 22.1 mg/mg High 10-20 [facility] Bilirubin, totalon Bilirubin [Mass/Vol] 0.36 mg/dL 0.00-1.30 [facility] CBC-Complete Blood Cnt No Di ffon 07-22-2024 Erythrocyte distribution width (RBC) [Ratio] 13.1 % Normal 11.6-14.6 [facility] Comment on above: Performed By: #### L 3410.9992, L503.6030, L3100.5310, L100.0500, L3300.7100, L3300.6900, L503.6550, L3300.6820, L509.6001, L501.5200, L3400.4600, L506.0400, L3300.3500, L500.4050, L3300.1750, L501.1400, L3300.1500, L803.0600, L500.4100, L801.2600, L501.9940, L501.6710, L501.9520, L501.9985, L501.86130, L506.0200, L503.0106, L3100.5060, L506.1001 ####[facility] [address] [place], [place], [address] Hematocrit (Bld) [Volume fraction] 40.6 % Normal 40-54 [facility] Comment on above: Performed By: #### L 3410.9992, L503.6030, L3100.5310, L100.0500, L3300.7100, L3300.6900, L503.6550, L3300.6820, L509.6001, L501.5200, L3400.4600, L506.0400, L3300.3500, L500.4050, L3300.1750, L501.1400, L3300.1500, L803.0600, L500.4100, L801.2600, L501.9940, L501.6710, L501.9520, L501.9985, L501.61106, L506.0200, L503.0106, L3100.5060, L506.1001 ####[facility] [address] [place], [address] Hemoglobin (Bld) [Mass/Vol] 13.6 g/dL Normal 13.0-16.5 [facility] Comment on above: Performed By: #### L 3410.9992, L503.6030, L3100.5310, L100.0500, L3300.7100, L3300.6900, L503.6550, L3300.6820, L509.6001, L501.5200, L3400.4600, L506.0400, L3300.3500, L500.4050, L3300.1750, L501.1400, L3300.1500, L803.0600, L500.4100, L801.2600, L501.9940, L501.6710, L501.9520, L501.9985, L501.47888, L506.0200, L503.0106, L3100.5060, L506.1001 ####[facility] [address] [facility]. [place], [place], [id number] MCH (RBC) [Entitic mass] 29.5 pg Normal 27.0-32.0 [facility] Comment on above: Performed By: #### L 3410.9992, L503.6030, L3100.5310, L100.0500, L3300.7100, L3300.6900, L503.6550, L3300.6820, L509.6001, L501.5200, L3400.4600, L506.0400, L3300.3500, L500.4050, L3300.1750, L501.1400, L3300.1500, L803.0600, L500.4100, L801.2600, L501.9940, L501.6710, L501.9520, L501.9985, L501.45462, L506.0200, L503.0106, L3100.5060, L506.1001 ####[facility] [address] [facility]. [place], [place], [id number] MCHC (RBC) [Mass/Vol] 33.5 g/dL Normal 32-36 [facility] Comment on above: Performed By: #### L 3410.9992, L503.6030, L3100.5310, L100.0500, L3300.7100, L3300.6900, L503.6550, L3300.6820, L509.6001, L501.5200, L3400.4600, L506.0400, L3300.3500, L500.4050, L3300.1750, L501.1400, L3300.1500, L803.0600, L500.4100, L801.2600, L501.9940, L501.6710, L501.9520, L501.9985, L501.85388, L506.0200, L503.0106, L3100.5060, L506.1001 ####[facility] [address] [place], [address] MCV (RBC) [Entitic vol] 88.1 fL Normal 80-94 [facility] Comment on above: Performed By: #### L 3410.9992, L503.6030, L3100.5310, L100.0500, L3300.7100, L3300.6900, L503.6550, L3300.6820, L509.6001, L501.5200, L3400.4600, L506.0400, L3300.3500, L500.4050, L3300.1750, L501.1400, L3300.1500, L803.0600, L500.4100, L801.2600, L501.9940, L501.6710, L501.9520, L501.9985, L501.46533, L506.0200, L503.0106, L3100.5060, L506.1001 ####[facility] [address] [place], [address] Platelet mean volume (Bld) [Entitic vol] 10.9 fL Normal 6.2-12.0 [facility] Comment on above: Performed By: #### L 3410.9992, L503.6030, L3100.5310, L100.0500, L3300.7100, L3300.6900, L503.6550, L3300.6820, L509.6001, L501.5200, L3400.4600, L506.0400, L3300.3500, L500.4050, L3300.1750, L501.1400, L3300.1500, L803.0600, L500.4100, L801.2600, L501.9940, L501.6710, L501.9520, L501.9985, L501.60273, L506.0200, L503.0106, L3100.5060, L506.1001 ####[facility] [address] [facility]. [place], [place], [address] Platelets (Bld) [#/Vol] 119 10*3/uL Low 150-450 [facility] Comment on above: Performed By: #### L 3410.9992, L503.6030, L3100.5310, L100.0500, L3300.7100, L3300.6900, L503.6550, L3300.6820, L509.6001, L501.5200, L3400.4600, L506.0400, L3300.3500, L500.4050, L3300.1750, L501.1400, L3300.1500, L803.0600, L500.4100, L801.2600, L501.9940, L501.6710, L501.9520, L501.9985, L501.34864, L506.0200, L503.0106, L3100.5060, L506.1001 ####[facility] [address] [facility]. [place], [place], [address] RBC (Bld) [#/Vol] 4.61 10*6/uL Normal 4.6-6.2 [facility] Comment on above: Performed By: #### L 3410.9992, L503.6030, L3100.5310, L100.0500, L3300.7100, L3300.6900, L503.6550, L3300.6820, L509.6001, L501.5200, L3400.4600, L506.0400, L3300.3500, L500.4050, L3300.1750, L501.1400, L3300.1500, L803.0600, L500.4100, L801.2600, L501.9940, L501.6710, L501.9520, L501.9985, L501.11785, L506.0200, L503.0106, L3100.5060, L506.1001 ####[facility] [address] [facility]. [place], [place], [address] RDW SD 41.8 fl Normal 35.1-43.9 [facility] Comment on above: Performed By: #### L 3410.9992, L503.6030, L3100.5310, L100.0500, L3300.7100, L3300.6900, L503.6550, L3300.6820, L509.6001, L501.5200, L3400.4600, L506.0400, L3300.3500, L500.4050, L3300.1750, L501.1400, L3300.1500, L803.0600, L500.4100, L801.2600, L501.9940, L501.6710, L501.9520, L501.9985, L501.49562, L506.0200, L503.0106, L3100.5060, L506.1001 ####[facility] [address] [facility]. [place], [place], [address] WBC (Bld) [#/Vol] 6.1 10*3/uL Normal 4.4-11.0 [facility] Comment on above: Performed By: #### L 3410.9992, L503.6030, L3100.5310, L100.0500, L3300.7100, L3300.6900, L503.6550, L3300.6820, L509.6001, L501.5200, L3400.4600, L506.0400, L3300.3500, L500.4050, L3300.1750, L501.1400, L3300.1500, L803.0600, L500.4100, L801.2600, L501.9940, L501.6710, L501.9520, L501.9985, L501.91031, L506.0200, L503.0106, L3100.5060, L506.1001 ####[facility] [address] [place], [address] CRPon 07-22-2024 C-REACTIVE PROT 5.65 mg/L High 0.0-3.0 [facility] Comment on above: Performed By: #### L 3410.9992, L503.6030, L3100.5310, L100.0500, L3300.7100, L3300.6900, L503.6550, L3300.6820, L509.6001, L501.5200, L3400.4600, L506.0400, L3300.3500, L500.4050, L3300.1750, L501.1400, L3300.1500, L803.0600, L500.4100, L801.2600, L501.9940, L501.6710, L501.9520, L501.9985, L501.30512, L506.0200, L503.0106, L3100.5060, L506.1001 ####[facility] [address] [facility] [address] [place], [place], [id number] Calculated very low density lipoprotein (VLDL) cholesterol measurementon 07-22-2024 Calculated very low density lipoprotein (VLDL) cholesterol measurement 26 mg/dL 5-40 [facility] Carbon dioxide, total [Moles /volume] in Central venous bloodon 07-22-2024 CO2 [Moles/Vol] 21.0 mmol/L 21.0-32.0 [facility] Chloride assayon 07-22-2024 Chloride [Moles/Vol] 103 mmol/L 98-108 [facility] Comprehensive Metabolic Prof ilon 07-22-2024 Albumin [Mass/Vol] 4.3 g/dL Normal 3.4-4.8 [facility] Comment on above: Performed By: #### L 3410.9992, L503.6030, L3100.5310, L100.0500, L3300.7100, L3300.6900, L503.6550, L3300.6820, L509.6001, L501.5200, L3400.4600, L506.0400, L3300.3500, L500.4050, L3300.1750, L501.1400, L3300.1500, L803.0600, L500.4100, L801.2600, L501.9940, L501.6710, L501.9520, L501.9985, L501.49159, L506.0200, L503.0106, L3100.5060, L506.1001 ####[facility] [address] [place], [place], [address] Albumin/Globulin [Mass ratio] 1.3 {ratio} Normal 0.9-2.4 [facility] Comment on above: Performed By: #### L 3410.9992, L503.6030, L3100.5310, L100.0500, L3300.7100, L3300.6900, L503.6550, L3300.6820, L509.6001, L501.5200, L3400.4600, L506.0400, L3300.3500, L500.4050, L3300.1750, L501.1400, L3300.1500, L803.0600, L500.4100, L801.2600, L501.9940, L501.6710, L501.9520, L501.9985, L501.59621, L506.0200, L503.0106, L3100.5060, L506.1001 ####[facility] [address] [place], [place], [id number] ALK PHOS 130 U/L High 40-129 [facility] Comment on above: Performed By: #### L 3410.9992, L503.6030, L3100.5310, L100.0500, L3300.7100, L3300.6900, L503.6550, L3300.6820, L509.6001, L501.5200, L3400.4600, L506.0400, L3300.3500, L500.4050, L3300.1750, L501.1400, L3300.1500, L803.0600, L500.4100, L801.2600, L501.9940, L501.6710, L501.9520, L501.9985, L501.64705, L506.0200, L503.0106, L3100.5060, L506.1001 ####[facility] [address] [place], [address] ALT [Catalytic activity/Vol] 32 U/L Normal <=46 [facility] Comment on above: Performed By: #### L 3410.9992, L503.6030, L3100.5310, L100.0500, L3300.7100, L3300.6900, L503.6550, L3300.6820, L509.6001, L501.5200, L3400.4600, L506.0400, L3300.3500, L500.4050, L3300.1750, L501.1400, L3300.1500, L803.0600, L500.4100, L801.2600, L501.9940, L501.6710, L501.9520, L501.9985, L501.73176, L506.0200, L503.0106, L3100.5060, L506.1001 ####[facility] [address] [place], [place], [address] AST [Catalytic activity/Vol] 36 U/L Normal <=37 [facility] Comment on above: Performed By: #### L 3410.9992, L503.6030, L3100.5310, L100.0500, L3300.7100, L3300.6900, L503.6550, L3300.6820, L509.6001, L501.5200, L3400.4600, L506.0400, L3300.3500, L500.4050, L3300.1750, L501.1400, L3300.1500, L803.0600, L500.4100, L801.2600, L501.9940, L501.6710, L501.9520, L501.9985, L501.70642, L506.0200, L503.0106, L3100.5060, L506.1001 ####[facility] [address] [place], [place], [address] Bilirubin [Mass/Vol] 0.36 mg/dL Normal 0.00-1.30 [facility] Comment on above: Performed By: #### L 3410.9992, L503.6030, L3100.5310, L100.0500, L3300.7100, L3300.6900, L503.6550, L3300.6820, L509.6001, L501.5200, L3400.4600, L506.0400, L3300.3500, L500.4050, L3300.1750, L501.1400, L3300.1500, L803.0600, L500.4100, L801.2600, L501.9940, L501.6710, L501.9520, L501.9985, L501.36233, L506.0200, L503.0106, L3100.5060, L506.1001 ####[facility] [address] [place], [place], [address] BUN/CRE 22.1 RATIO High 10-20 [facility] Comment on above: Performed By: #### L 3410.9992, L503.6030, L3100.5310, L100.0500, L3300.7100, L3300.6900, L503.6550, L3300.6820, L509.6001, L501.5200, L3400.4600, L506.0400, L3300.3500, L500.4050, L3300.1750, L501.1400, L3300.1500, L803.0600, L500.4100, L801.2600, L501.9940, L501.6710, L501.9520, L501.9985, L501.59161, L506.0200, L503.0106, L3100.5060, L506.1001 ####[facility] [address] [facility] [place], [place], [address] Calcium [Mass/Vol] 9.0 mg/dL Normal 7.6-11.0 [facility] Comment on above: Performed By: #### L 3410.9992, L503.6030, L3100.5310, L100.0500, L3300.7100, L3300.6900, L503.6550, L3300.6820, L509.6001, L501.5200, L3400.4600, L506.0400, L3300.3500, L500.4050, L3300.1750, L501.1400, L3300.1500, L803.0600, L500.4100, L801.2600, L501.9940, L501.6710, L501.9520, L501.9985, L501.55555, L506.0200, L503.0106, L3100.5060, L506.1001 ####[facility] [address] [facility]. [place], [place], [address] Chloride [Moles/Vol] 103 mmol/L Normal 98-108 [facility] Comment on above: Performed By: #### L 3410.9992, L503.6030, L3100.5310, L100.0500, L3300.7100, L3300.6900, L503.6550, L3300.6820, L509.6001, L501.5200, L3400.4600, L506.0400, L3300.3500, L500.4050, L3300.1750, L501.1400, L3300.1500, L803.0600, L500.4100, L801.2600, L501.9940, L501.6710, L501.9520, L501.9985, L501.84345, L506.0200, L503.0106, L3100.5060, L506.1001 ####[facility] [address] [facility]. [place], [place], [address] CO2 [Moles/Vol] 21.0 mmol/L Normal 21.0-32.0 [facility] Comment on above: Performed By: #### L 3410.9992, L503.6030, L3100.5310, L100.0500, L3300.7100, L3300.6900, L503.6550, L3300.6820, L509.6001, L501.5200, L3400.4600, L506.0400, L3300.3500, L500.4050, L3300.1750, L501.1400, L3300.1500, L803.0600, L500.4100, L801.2600, L501.9940, L501.6710, L501.9520, L501.9985, L501.35901, L506.0200, L503.0106, L3100.5060, L506.1001 ####[facility] Lp[address]jetpp[address] [facility]. [place], [place], [address] Creatinine [Mass/Vol] 0.92 mg/dL Normal 0.70-1.20 [facility] Comment on above: Performed By: #### L 3410.9992, L503.6030, L3100.5310, L100.0500, L3300.7100, L3300.6900, L503.6550, L3300.6820, L509.6001, L501.5200, L3400.4600, L506.0400, L3300.3500, L500.4050, L3300.1750, L501.1400, L3300.1500, L803.0600, L500.4100, L801.2600, L501.9940, L501.6710, L501.9520, L501.9985, L501.55104, L506.0200, L503.0106, L3100.5060, L506.1001 ####[facility] [address] [facility] [address] [place], [place], [address] GAP 12 Normal 5-15 [facility] Comment on above: Performed By: #### L 3410.9992, L503.6030, L3100.5310, L100.0500, L3300.7100, L3300.6900, L503.6550, L3300.6820, L509.6001, L501.5200, L3400.4600, L506.0400, L3300.3500, L500.4050, L3300.1750, L501.1400, L3300.1500, L803.0600, L500.4100, L801.2600, L501.9940, L501.6710, L501.9520, L501.9985, L501.72626, L506.0200, L503.0106, L3100.5060, L506.1001 ####[facility] [address] [place], [place], [address] GFR/1.73 sq M.predicted among non-blacks MDRD (S/P/Bld) [Vol rate/Area] 93 mL/min/{1.73_m2} Normal >60 [facility] Comment on above: Result Comment: mL/m in/1.73m2 CKD-EPI Creatinine Equation (2020) Performed By: #### L 3410.9992, L503.6030, L3100.5310, L100.0500, L3300.7100, L3300.6900, L503.6550, L3300.6820, L509.6001, L501.5200, L3400.4600, L506.0400, L3300.3500, L500.4050, L3300.1750, L501.1400, L3300.1500, L803.0600, L500.4100, L801.2600, L501.9940, L501.6710, L501.9520, L501.9985, L501.46052, L506.0200, L503.0106, L3100.5060, L506.1001 ####[facility] [address] [place], [place], [id number] Globulin (S) [Mass/Vol] 3.2 g/dL Normal 2.2-4.2 [facility] Comment on above: Performed By: #### L 3410.9992, L503.6030, L3100.5310, L100.0500, L3300.7100, L3300.6900, L503.6550, L3300.6820, L509.6001, L501.5200, L3400.4600, L506.0400, L3300.3500, L500.4050, L3300.1750, L501.1400, L3300.1500, L803.0600, L500.4100, L801.2600, L501.9940, L501.6710, L501.9520, L501.9985, L501.01166, L506.0200, L503.0106, L3100.5060, L506.1001 ####[facility] [address] [facility]. [place], [place], [address] Glucose [Mass/Vol] 94 mg/dL Normal 70-99 [facility] Comment on above: Performed By: #### L 3410.9992, L503.6030, L3100.5310, L100.0500, L3300.7100, L3300.6900, L503.6550, L3300.6820, L509.6001, L501.5200, L3400.4600, L506.0400, L3300.3500, L500.4050, L3300.1750, L501.1400, L3300.1500, L803.0600, L500.4100, L801.2600, L501.9940, L501.6710, L501.9520, L501.9985, L501.77195, L506.0200, L503.0106, L3100.5060, L506.1001 ####[facility] [address] [facility]. [place], [place], [id number](223) Potassium [Moles/Vol] 4.1 mmol/L Normal 3.3-5.1 [facility] Comment on above: Performed By: #### L 3410.9992, L503.6030, L3100.5310, L100.0500, L3300.7100, L3300.6900, L503.6550, L3300.6820, L509.6001, L501.5200, L3400.4600, L506.0400, L3300.3500, L500.4050, L3300.1750, L501.1400, L3300.1500, L803.0600, L500.4100, L801.2600, L501.9940, L501.6710, L501.9520, L501.9985, L501.22501, L506.0200, L503.0106, L3100.5060, L506.1001 ####[facility] [address] [facility] [place], [place], [id number] Sodium [Moles/Vol] 136 mmol/L Normal 133-145 [facility] Comment on above: Performed By: #### L 3410.9992, L503.6030, L3100.5310, L100.0500, L3300.7100, L3300.6900, L503.6550, L3300.6820, L509.6001, L501.5200, L3400.4600, L506.0400, L3300.3500, L500.4050, L3300.1750, L501.1400, L3300.1500, L803.0600, L500.4100, L801.2600, L501.9940, L501.6710, L501.9520, L501.9985, L501.22958, L506.0200, L503.0106, L3100.5060, L506.1001 ####[facility] [address] [place], [place], [address] T PROT 7.5 g/dL Normal 5.9-8.4 [facility] Comment on above: Performed By: #### L 3410.9992, L503.6030, L3100.5310, L100.0500, L3300.7100, L3300.6900, L503.6550, L3300.6820, L509.6001, L501.5200, L3400.4600, L506.0400, L3300.3500, L500.4050, L3300.1750, L501.1400, L3300.1500, L803.0600, L500.4100, L801.2600, L501.9940, L501.6710, L501.9520, L501.9985, L501.82641, L506.0200, L503.0106, L3100.5060, L506.1001 ####[facility] [address] [facility] [place], [place], [address] Urea nitrogen [Mass/Vol] 20 mg/dL High 4-19 [facility] Comment on above: Performed By: #### L 3410.9992, L503.6030, L3100.5310, L100.0500, L3300.7100, L3300.6900, L503.6550, L3300.6820, L509.6001, L501.5200, L3400.4600, L506.0400, L3300.3500, L500.4050, L3300.1750, L501.1400, L3300.1500, L803.0600, L500.4100, L801.2600, L501.9940, L501.6710, L501.9520, L501.9985, L501.03554, L506.0200, L503.0106, L3100.5060, L506.1001 ####[facility] [address] [place], [place], [address] Erythrocyte distribution wid th ratioon 07-22-2024 Erythrocyte distribution width (RBC) [Ratio] 13.1 % 11.6-14.6 [facility] Erythrocyte distribution wid th standard deviationon 07-22-2024 Erythrocyte distribution width (RBC) [Ratio] 41.8 fl 35.1-43.9 [facility] Estradiolon 07-22-2024 ESTRADIOL 9.9 pg/mL Normal [facility] Comment on above: Result Comment: MALE S [...] L803.0600, L500.4100, L801.2600, L501.9940, L501.6710, L501.9520, L501.9985, L501.81835, L506.0200, L503.0106, L3100.5060, L506.1001 ####[facility] [address] [place], [place], [address] Ferritinon 07-22-2024 Ferritin [Mass/Vol] 269 ng/mL Normal 37-417 [facility] Comment on above: Performed By: #### L 3410.9992, L503.6030, L3100.5310, L100.0500, L3300.7100, L3300.6900, L503.6550, L3300.6820, L509.6001, L501.5200, L3400.4600, L506.0400, L3300.3500, L500.4050, L3300.1750, L501.1400, L3300.1500, L803.0600, L500.4100, L801.2600, L501.9940, L501.6710, L501.9520, L501.9985, L501.67284, L506.0200, L503.0106, L3100.5060, L506.1001 ####[facility] [address] [facility] [address] [place], [place], [address] Folate [Moles/volume] in Ser um or Plasmaon 07-22-2024 Folate [Moles/Vol] 5.56 ng/mL 4.60-34.80 [facility] Comment on above: Hemolysis, Results w ill be affected, Requires Recollection. Folates,Serum (Folic Acid)on 07-22-2024 FOLATES,SERUM 5.56 ng/mL Normal 4.60-34.80 [facility] Comment on above: Order Comment: N Result Comment: Hemo lysis, Results will be affected, Requires Recollection. Performed By: #### L 3410.9992, L503.6030, L3100.5310, L100.0500, L3300.7100, L3300.6900, L503.6550, L3300.6820, L509.6001, L501.5200, L3400.4600, L506.0400, L3300.3500, L500.4050, L3300.1750, L501.1400, L3300.1500, L803.0600, L500.4100, L801.2600, L501.9940, L501.6710, L501.9520, L501.9985, L501.47492, L506.0200, L503.0106, L3100.5060, L506.1001 ####[facility] [id number] [facility]. [place], [place], [id number] Free T3on 07-22-2024 Free T3 [Mass/Vol] 2.7 pg/mL Normal 2.18-3.98 [facility] Comment on above: Order Comment: N Performed By: #### L 3410.9992, L503.6030, L3100.5310, L100.0500, L3300.7100, L3300.6900, L503.6550, L3300.6820, L509.6001, L501.5200, L3400.4600, L506.0400, L3300.3500, L500.4050, L3300.1750, L501.1400, L3300.1500, L803.0600, L500.4100, L801.2600, L501.9940, L501.6710, L501.9520, L501.9985, L501.99418, L506.0200, L503.0106, L3100.5060, L506.1001 ####[facility] [address] [facility]. [place], [place], [id number] Free T3 [Mass/Vol] 2.7 pg/mL 2.18-3.98 [facility] Free testosterone percentage on 07-22-2024 Testosterone Free/Testosterone.total [Mass fraction] 2.97 % 1.50-4.20 [facility] Glomerular filtration rate ( GFR) estimation/1.73 sq m using serum, plasma, or whole bon 07-22-2024 GFR/1.73 sq M.predicted among non-blacks MDRD (S/P/Bld) [Vol rate/Area] 93 mL/min/{1.73_m2} >60 [facility] Comment on above: mL/min/1.73m2 CKD-EP I Creatinine Equation (2020) Hematocrit Auto (Bld) [Volum e fraction]on 07-22-2024 Hematocrit (Bld) [Volume fraction] 40.6 % 40-54 [facility] Hemoglobin A1con 07-22-2024 HbA1c (Bld) [Mass fraction] 5.5 % Normal <=5.6 [facility] Comment on above: Result Comment: Norm al < 5.7 % Prediabetic 5.7 - 6.4 % Diabetic >or= 6.5 % Please note range changes. Performed By: #### L 3410.9992, L503.6030, L3100.5310, L100.0500, L3300.7100, L3300.6900, L503.6550, L3300.6820, L509.6001, L501.5200, L3400.4600, L506.0400, L3300.3500, L500.4050, L3300.1750, L501.1400, L3300.1500, L803.0600, L500.4100, L801.2600, L501.9940, L501.6710, L501.9520, L501.9985, L501.12276, L506.0200, L503.0106, L3100.5060, L506.1001 ####[facility] [address] [place], [place], [id number] Hemoglobin A1c percentageon 07-22-2024 HbA1c (Bld) [Mass fraction] 5.5 % <5.7 [facility] Comment on above: Normal < 5.7 % Predi abetic 5.7 - 6.4 % Diabetic >or= 6.5 % Please note range changes. Hemoglobin measurementon Hemoglobin (Bld) [Mass/Vol] 13.6 g/dL 13.0-16.5 [facility] Iron measurement (mass/mass) on 07-22-2024 Iron (Unsp spec) [Mass/Mass] 60 ug/dL Low 65-175 [facility] Iron+Iron Binding Capacityon 07-22-2024 Iron [Mass/Vol] 60 ug/dL Low 65-175 [facility] Comment on above: Performed By: #### L 3410.9992, L503.6030, L3100.5310, L100.0500, L3300.7100, L3300.6900, L503.6550, L3300.6820, L509.6001, L501.5200, L3400.4600, L506.0400, L3300.3500, L500.4050, L3300.1750, L501.1400, L3300.1500, L803.0600, L500.4100, L801.2600, L501.9940, L501.6710, L501.9520, L501.9985, L501.47788, L506.0200, L503.0106, L3100.5060, L506.1001 ####[facility] [address] [place], [place], [id number] IRON SATURATION 19.0 Normal 9-55 [facility] Comment on above: Performed By: #### L 3410.9992, L503.6030, L3100.5310, L100.0500, L3300.7100, L3300.6900, L503.6550, L3300.6820, L509.6001, L501.5200, L3400.4600, L506.0400, L3300.3500, L500.4050, L3300.1750, L501.1400, L3300.1500, L803.0600, L500.4100, L801.2600, L501.9940, L501.6710, L501.9520, L501.9985, L501.42402, L506.0200, L503.0106, L3100.5060, L506.1001 ####[facility] [address] [place], [place], [address] TIBC 319 ug/dL Normal 250-450 [facility] Comment on above: Performed By: #### L 3410.9992, L503.6030, L3100.5310, L100.0500, L3300.7100, L3300.6900, L503.6550, L3300.6820, L509.6001, L501.5200, L3400.4600, L506.0400, L3300.3500, L500.4050, L3300.1750, L501.1400, L3300.1500, L803.0600, L500.4100, L801.2600, L501.9940, L501.6710, L501.9520, L501.9985, L501.38200, L506.0200, L503.0106, L3100.5060, L506.1001 ####[facility] [address] [facility] [place], [place], [address] UIBC 259 ug/dL Normal 228-428 [facility] Comment on above: Performed By: #### L 3410.9992, L503.6030, L3100.5310, L100.0500, L3300.7100, L3300.6900, L503.6550, L3300.6820, L509.6001, L501.5200, L3400.4600, L506.0400, L3300.3500, L500.4050, L3300.1750, L501.1400, L3300.1500, L803.0600, L500.4100, L801.2600, L501.9940, L501.6710, L501.9520, L501.9985, L501.79260, L506.0200, L503.0106, L3100.5060, L506.1001 ####[facility] [address] [facility]. [place], [place], [address] L501.2276on 07-22-2024 Ionized Calcium 1.16 mmol/L Normal 1.09-1.30 [facility] Comment on above: Performed By: #### L 501.2276 #### [facility] [address] [place], [place], [id number] L509.6001on 07-22-2024 CORTISOL 12.40 ug/dL Normal 6.02-18.40 [facility] Comment on above: Performed By: #### L 3410.9992, L503.6030, L3100.5310, L100.0500, L3300.7100, L3300.6900, L503.6550, L3300.6820, L509.6001, L501.5200, L3400.4600, L506.0400, L3300.3500, L500.4050, L3300.1750, L501.1400, L3300.1500, L803.0600, L500.4100, L801.2600, L501.9940, L501.6710, L501.9520, L501.9985, L501.07836, L506.0200, L503.0106, L3100.5060, L506.1001 ####[facility] [address] [place], [address] LDL calc ser/plason 07-23-19 25 Cholesterol in LDL [Mass/Vol] 129 mg/dL [facility] Comment on above: Nshoqchznm=278-438 m g/dL & Higher Tsua=070 mg/dL or greater Laboratory - Chemistry and C hemistry - challengeon 07-22-2024 AST [Catalytic activity/Vol] 36 U/L <38 [facility] Lipid Profileon 07-22-2024 CHOL:HDL 4.60 Normal [facility] Comment on above: Performed By: #### L 3410.9992, L503.6030, L3100.5310, L100.0500, L3300.7100, L3300.6900, L503.6550, L3300.6820, L509.6001, L501.5200, L3400.4600, L506.0400, L3300.3500, L500.4050, L3300.1750, L501.1400, L3300.1500, L803.0600, L500.4100, L801.2600, L501.9940, L501.6710, L501.9520, L501.9985, L501.08443, L506.0200, L503.0106, L3100.5060, L506.1001 ####[facility] [address] [place], [place], [id number] Cholesterol [Mass/Vol] 198 mg/dL Normal <=200 [facility] Comment on above: Result Comment: Chol esterol level, Desirable <200 mg/dL Borderline high cholesterol 200-239 mg/dL High cholesterol >=240 mg/dL Recommendations of the NCEP Adult Treatment Panel for the following risk-cutoff thresholds for the [place] population. Performed By: #### L 3410.9992, L503.6030, L3100.5310, L100.0500, L3300.7100, L3300.6900, L503.6550, L3300.6820, L509.6001, L501.5200, L3400.4600, L506.0400, L3300.3500, L500.4050, L3300.1750, L501.1400, L3300.1500, L803.0600, L500.4100, L801.2600, L501.9940, L501.6710, L501.9520, L501.9985, L501.40713, L506.0200, L503.0106, L3100.5060, L506.1001 ####[facility] [address] [facility] [place], [address] Cholesterol in HDL [Mass/Vol] 43 mg/dL Normal [facility] Comment on above: Result Comment: Kathryn onal [...] L803.0600, L500.4100, L801.2600, L501.9940, L501.6710, L501.9520, L501.9985, L501.57561, L506.0200, L503.0106, L3100.5060, L506.1001 ####[facility] [address] [facility] [place], [address] Cholesterol in LDL [Mass/Vol] 129 mg/dL Normal [facility] Comment on above: Result Comment: Bord qrswqk=092-808 mg/dL Higher Tvej=970 mg/dL or greater Performed By: #### L 3410.9992, L503.6030, L3100.5310, L100.0500, L3300.7100, L3300.6900, L503.6550, L3300.6820, L509.6001, L501.5200, L3400.4600, L506.0400, L3300.3500, L500.4050, L3300.1750, L501.1400, L3300.1500, L803.0600, L500.4100, L801.2600, L501.9940, L501.6710, L501.9520, L501.9985, L501.11553, L506.0200, L503.0106, L3100.5060, L506.1001 ####[facility] [address] [facility] [place], [address] Cholesterol in VLDL [Mass/Vol] 26 mg/dL Normal 5-40 [facility] Comment on above: Performed By: #### L 3410.9992, L503.6030, L3100.5310, L100.0500, L3300.7100, L3300.6900, L503.6550, L3300.6820, L509.6001, L501.5200, L3400.4600, L506.0400, L3300.3500, L500.4050, L3300.1750, L501.1400, L3300.1500, L803.0600, L500.4100, L801.2600, L501.9940, L501.6710, L501.9520, L501.9985, L501.29681, L506.0200, L503.0106, L3100.5060, L506.1001 ####[facility] [address] [facility]. [place], [place], [id number] Triglyceride [Mass/Vol] 129 mg/dL Normal [facility] Comment on above: Result Comment: The drugs N-Acetylcysteine and Metamizole may falsely depress this assay. Normal range: <150 mg/dL Borderline High: 150-199 mg/dL High: 200-499 mg/dL Very High: >500 mg/dL Performed By: #### L 3410.9992, L503.6030, L3100.5310, L100.0500, L3300.7100, L3300.6900, L503.6550, L3300.6820, L509.6001, L501.5200, L3400.4600, L506.0400, L3300.3500, L500.4050, L3300.1750, L501.1400, L3300.1500, L803.0600, L500.4100, L801.2600, L501.9940, L501.6710, L501.9520, L501.9985, L501.77939, L506.0200, L503.0106, L3100.5060, L506.1001 ####[facility] [address] [facility]. [place], [place], [id number] Lipoprotein a [Mass/Vol]on 0 07-22-2024 Lipoprotein a [Moles/Vol] 22.2 nmol/L <75.0 [facility] Comment on above: Note: Values greater than or equal to 75.0 nmol/L may indicate an independent risk factor for CHD, but must be evaluated with caution when applied to non- populations due to the influence of genetic factors on Lp(a) across ethnicities. MCV (mean corpuscular volume ) determinationon 07-22-2024 MCV (RBC) [Entitic vol] 88.1 fL 80-94 [facility] Magnesiumon 07-22-2024 Magnesium [Mass/Vol] 2.2 mg/dL Normal 1.5-2.2 [facility] Comment on above: Performed By: #### L 3410.9992, L503.6030, L3100.5310, L100.0500, L3300.7100, L3300.6900, L503.6550, L3300.6820, L509.6001, L501.5200, L3400.4600, L506.0400, L3300.3500, L500.4050, L3300.1750, L501.1400, L3300.1500, L803.0600, L500.4100, L801.2600, L501.9940, L501.6710, L501.9520, L501.9985, L501.30046, L506.0200, L503.0106, L3100.5060, L506.1001 ####[facility] [address] [place], [place], [id number] Magnesium measurement (mass/ volume)on 07-22-2024 Magnesium (Unsp spec) [Mass/Vol] 2.2 mg/dL 1.5-2.2 [facility] Mean corpuscular hemoglobin (MCH) determinationon 07-22-2024 MCH (RBC) [Entitic mass] 29.5 pg 27.0-32.0 [facility] Mean corpuscular hemoglobin concentration (MCHC) determinationon 07-22-2024 MCHC (RBC) [Mass/Vol] 33.5 g/dL 32-36 [facility] Mean platelet volume determi nationon 07-22-2024 Platelet mean volume (Bld) [Entitic vol] 10.9 fL 6.2-12.0 [facility] No Panel Informationon 07-22 Unsaturated Iron Binding Capacity 259 ug/dL 228-428 [facility] PSA,Total- Diagnosticon 06-25 PSA, DIAGNOSTIC 0.34 ng/mL Normal 0.00-4.00 [facility] Comment on above: Result Comment: This test [...] L803.0600, L500.4100, L801.2600, L501.9940, L501.6710, L501.9520, L501.9985, L501.83364, L506.0200, L503.0106, L3100.5060, L506.1001 ####[facility] [address] [place], [address] Platelet counton 07-22-2024 Platelets (Bld) [#/Vol] 119 10*3/uL Low 150-450 [facility] Potassium measurement (mass/ volume)on 07-22-2024 Potassium (Unsp spec) [Mass/Vol] 4.1 mmol/L 3.3-5.1 [facility] RBC Auto (Bld) [#/Vol]on 04- 29-2025 RBC (Bld) [#/Vol] 4.61 10*6/uL 4.6-6.2 [facility] Screening total cholesterol/ high density lipoprotein (HDL) cholesterol ratioon 07-22-2024 Cholesterol.total/Ban sterol in HDL [Mass ratio] 4.60 {ratio} [facility] Serum creatinine measurement (mass/volume)on 07-22-2024 Creatinine [Mass/Vol] 0.92 mg/dL 0.70-1.20 [facility] Serum globulin measurementon 07-22-2024 Globulin (S) [Mass/Vol] 3.2 g/dL 2.2-4.2 [facility] Serum glucose measurement (m ass/volume)on 07-22-2024 Glucose [Mass/Vol] 94 mg/dL 70-99 [facility] Serum or plasma C reactive p rotein measurement (mass/volume)on 07-22-2024 CRP [Mass/Vol] 5.65 mg/L High 0.0-3.0 [facility] Serum or plasma alanine anderson otransferase (ALT) measurementon 07-22-2024 ALT [Catalytic activity/Vol] 32 U/L <47 [facility] Serum or plasma albumin donovan urement (mass/volume)on 07-22-2024 Albumin [Mass/Vol] 4.3 g/dL 3.4-4.8 [facility] Serum or plasma albumin/glob ulin mass ratioon 07-22-2024 Albumin/Globulin [Mass ratio] 1.3 {ratio} 0.9-2.4 [facility] Serum or plasma alkaline red sphatase measurementon 07-22-2024 ALP [Catalytic activity/Vol] 130 U/L High 40-129 [facility] Serum or plasma calcium donovan urement (mass/volume)on 07-22-2024 Calcium [Mass/Vol] 9.0 mg/dL 7.6-11.0 [facility] Serum or plasma cholesterol in HDL measurement (mass/volume)on 07-22-2024 Cholesterol in HDL [Mass/Vol] 43 mg/dL >40 [facility] Comment on above: National Cholesterol Education Program (NCEP) guidelines:<40 mg/dL: Low HDL-cholesterol (major risk factor for CHD)>= 60 mg/dL: High HDL-cholesterol (negative risk factor for CHD)HDL-cholesterol is affected by a number of factors, e.g. smoking, exercise, hormones, sex and age. Serum or plasma cholesterol measurement (mass/volume)on 07-22-2024 Cholesterol [Mass/Vol] 198 mg/dL <201 [facility] Comment on above: Cholesterol level, D esirable <200 mg/dLBorderline high cholesterol 200-239 mg/dLHigh cholesterol >=240 mg/dLRecommendations of the NCEP Adult Treatment Panel for the following risk-cutoff thresholds for the [place] population. Serum or plasma cortisol cody surement (mass/volume)on 07-22-2024 Cortisol [Mass/Vol] 12.40 ug/dL 6.02-18.40 [facility] Serum or plasma estradiol me asurement after follitropin dose (mass/volume)on 07-22-2024 E2 post dose follitropin [Mass/Vol] 9.9 pg/mL [facility] Comment on above: MALES ADULT MALE: 10 [...] (mass/volume)on 07-22-2024 Ferritin [Mass/Vol] 269 ng/mL 37-417 [facility] Serum or plasma free testost erone measurement (mass/volume)on 07-22-2024 Testosterone Free [Mass/Vol] 3.12 ng/dL Low 5.00-21.00 [facility] Serum or plasma insulin donovan urement (mass/volume)on 07-22-2024 Insulin [Mass/Vol] 18.6 uIU/mL 2.6-24.9 [facility] Serum or plasma iron saturat ion measurement (mass fraction)on 07-22-2024 Iron saturation [Mass fraction] 19.0 % 9-55 [facility] Serum or plasma sex hormone binding globulin measurement (moles/volume)on 07-22-2024 Sex hormone binding globulin [Moles/Vol] 36.6 nmol/L 19.3-76.4 [facility] Comment on above: Performed at: [address] [id number] Director: Yg Perrin PhD, Phone: [phone] at: - [facility] [address] [id number] Director: Margarito Sanders MD, Phone: [phone] Serum or plasma thyroperoxid ase antibody assay (units/volume)on 07-22-2024 TPO Ab Qn [IU]/mL 0-34 [facility] Serum or plasma urea nitroge n measurement (mass/volume)on 07-22-2024 Urea nitrogen [Mass/Vol] 20 mg/dL High 4-19 [facility] Serum or plasma uric acid me asurement (mass/volume)on 07-22-2024 Urate [Mass/Vol] 3.9 mg/dL 3.5-7.2 [facility] Comment on above: The drugs N-Acetylcy steine and Metamizole may falsely depress this assay. Sodium levelon 07-22-2024 Sodium [Moles/Vol] 136 mmol/L 133-145 [facility] T4 Free Directon 07-22-2024 T4 FREE DIRECT 1.00 ng/dL Normal 0.76-1.46 [facility] Comment on above: Order Comment: N Performed By: #### L 3410.9992, L503.6030, L3100.5310, L100.0500, L3300.7100, L3300.6900, L503.6550, L3300.6820, L509.6001, L501.5200, L3400.4600, L506.0400, L3300.3500, L500.4050, L3300.1750, L501.1400, L3300.1500, L803.0600, L500.4100, L801.2600, L501.9940, L501.6710, L501.9520, L501.9985, L501.91652, L506.0200, L503.0106, L3100.5060, L506.1001 ####[facility] [address] [place], [place], [id number] T4 freeon 07-22-2024 Free T4 [Mass/Vol] 1.00 ng/dL 0.76-1.46 [facility] TSH DL <= 0.005 mIU/L Qnon 0 07-22-2024 TSH Qn 2.000 uIU/mL 0.300-4.200 [facility] Testosterone, totalon 2024 Testosterone [Mass/Vol] 105 ng/dL Low 264-916 [facility] Comment on above: Adult male reference interval is based on a population ofhealthy nonobese males (BMI <30) between 19 and 39 yearsold. Remberto et.al. JCEM 2017,102;8334-9366. PMID:38412484. Thyroid Stim Hormone (TSH)on 07-22-2024 TSH 2.000 uIU/mL Normal 0.300-4.200 [facility] Comment on above: Performed By: #### L 3410.9992, L503.6030, L3100.5310, L100.0500, L3300.7100, L3300.6900, L503.6550, L3300.6820, L509.6001, L501.5200, L3400.4600, L506.0400, L3300.3500, L500.4050, L3300.1750, L501.1400, L3300.1500, L803.0600, L500.4100, L801.2600, L501.9940, L501.6710, L501.9520, L501.9985, L501.15505, L506.0200, L503.0106, L3100.5060, L506.1001 ####[facility] [address] [place], [place], [id number] Total proteinon 07-22-2024 Protein [Mass/Vol] 7.5 g/dL 5.9-8.4 [facility] Triglycerides measurementon 07-22-2024 Triglyceride [Mass/Vol] 129 mg/dL <199 [facility] Comment on above: The drugs N-Acetylcy steine and Metamizole may falsely depress this assay. Normal range: <150 mg/dLBorderline High: 150-199 mg/dLHigh: 200-499 mg/dLVery High: >500 mg/dL Uric Acidon 07-22-2024 URIC 3.9 mg/dL Normal 3.5-7.2 [facility] Comment on above: Result Comment: The drugs N-Acetylcysteine and Metamizole may falsely depress this assay. Performed By: #### L 3410.9992, L503.6030, L3100.5310, L100.0500, L3300.7100, L3300.6900, L503.6550, L3300.6820, L509.6001, L501.5200, L3400.4600, L506.0400, L3300.3500, L500.4050, L3300.1750, L501.1400, L3300.1500, L803.0600, L500.4100, L801.2600, L501.9940, L501.6710, L501.9520, L501.9985, L501.48778, L506.0200, L503.0106, L3100.5060, L506.1001 ####[facility] [address] [place], [place], [id number] Vitamin B12on 07-22-2024 Cobalamin (Vitamin B12) [Mass/Vol] 674 pg/mL Normal 180-914 [facility] Comment on above: Performed By: #### L 3410.9992, L503.6030, L3100.5310, L100.0500, L3300.7100, L3300.6900, L503.6550, L3300.6820, L509.6001, L501.5200, L3400.4600, L506.0400, L3300.3500, L500.4050, L3300.1750, L501.1400, L3300.1500, L803.0600, L500.4100, L801.2600, L501.9940, L501.6710, L501.9520, L501.9985, L501.06789, L506.0200, L503.0106, L3100.5060, L506.1001 ####[facility] [address] [facility]. [place], [place], [id number] Vitamin B12 ser/plason 07-22 Cobalamin (Vitamin B12) [Mass/Vol] 674 pg/mL 180-914 [facility] Vitamin D,25 Hydroxyon 07-22 Vitamin D 25-OH 35.1 ng/mL Normal 30-100 [facility] Comment on above: Result Comment: Raquel min D Status Deficiency: <20 ng/mL (50nmol/L) Insufficiency: 20-30 ng/mL (50-75 nmol/L) Sufficiency: 30-100 ng/mL (75-250 nmol/L) Toxicity: >100 ng/mL (>250 nmol/L) Performed By: #### L 3410.9992, L503.6030, L3100.5310, L100.0500, L3300.7100, L3300.6900, L503.6550, L3300.6820, L509.6001, L501.5200, L3400.4600, L506.0400, L3300.3500, L500.4050, L3300.1750, L501.1400, L3300.1500, L803.0600, L500.4100, L801.2600, L501.9940, L501.6710, L501.9520, L501.9985, L501.05294, L506.0200, L503.0106, L3100.5060, L506.1001 ####[facility] [address] [facility]. [place], [place], [id number] White blood cell (WBC) count on 07-22-2024 WBC (Bld) [#/Vol] 6.1 10*3/uL 4.4-11.0 [facility] Inital Evaluation (1) - PTon 04-22-2024 Inital Evaluation (1) - PT [facility] [address] [place] [address] / REHABILITATION SERVICES INITIAL EVALUATION MR#: [id number] Acct: [id number] Name: MELANIE NAVARRO Rep #: [id number] : 1960 63 From: Tod Khan DPT Referring Dr.: Dr. Devika Arcos MD Status: RE G RCR Insurance: [employer] EXCHANGE PLAN [facility] PACKAGE PLAN Patient's Visit Information Visit [...] please r (more content not included)... Normal [facility] Cardiology Visit Reporton Cardiology Visit Report [facility] [address] [place] [address] OFFICE VISIT Date of Service: 04/09/24 MR#: [id number] Acct: [id number] Name: MELANIE NAVARRO Rep #: [id number] : 1960 Provider: BARRY matos Age/Sex: 63/M Location: [facility] Status: Signed HPI HPI History of Present Illness Details: This is a 63-year-old white male who presents today for outpatient cardiovascular follow-up for history of CAD, status post RCA thrombosis with subsequent PTCA/stent (2008 at [facility]), hyperlipidemia, hypertension, thrombocytopenia, IBAN with CPAP [...] NIBP Intake Visit Reasons: OVERDUE FOR OV Powderer Required: No Is patient in pain?: No [...] sleep apnea) Hyperlipidemia Atherosclerotic heart disease of [place] coronary artery without angina pectoris Surgical History [...] moist m (more content not included)... Normal [facility] 02-19-2024 [facility] Telephone (LENKA) -------- MELANIE NAVARRO ([id number]) 1960 M Date Time Provider Department 02/19/24 [...] Encounter Status:Closed by RICHIE VU on 02/20/24 [facility] Rita 02-18-2024 [facility] Office Visit (NEMOWS ) -------- MELANIE NAVARRO ([id number]) 1960 M Date Time Provider Department 02/18/24 [...] compliance with device. Note, lab work from [facility] reviewed (B12, TSH, TIBC/iron/ferritin, Vit D, [...] the past year. Now transitioning back to il. I have no PAP data download for [...] dizziness or (more content not included)... Normal [facility] Inital Evaluation (1) - PTon 11-28-2023 Inital Evaluation (1) - PT [facility] [address] [place] [address] / REHABILITATION SERVICES INITIAL EVALUATION MR#: [id number] Acct: [id number] Name: MELANIE NAVARRO Rep #: [id number] : 1960 63 From: Carito ROGERS Referring Dr.: Dr. Devika Arcos MD Status: RE G R Insurance: [employer] PLAN SELF PAY INSURANCE Patient's Visit Information [...] Subjective: Pt was Dx with PD during COVAL. He has been doing the PD class [...] and R knee. He still works at [employer] in the [employer] and on his feet all the time. [...] care and (more content not included)... Normal [facility] Absolute lymphocyte countOrd ered By: Devika Arcos on 09-29-2022 Lymphocytes Auto (Unsp spec) [#/Vol] 1.09 10*3/uL 0.83-4.51 [facility] Basophil percentageOrdered B y: Devika Arcos on 09-29-2022 Basophils/100 WBC (Bld) 0.6 % 0-1 [facility] Eosinophils/100 WBC (Bld) 1.8 % 0-5 [facility] Neutrophils (Bld) [#/Vol] 6.3 10*3/uL 2.0-7.7 [facility] Neutrophils/100 WBC (Bld) 73.3 % 47-70 [facility] WBC (Bld) [#/Vol] 8.5 10*3/uL 4.4-11.0 [facility] [place] erythrocytes count (nu mber/volume)Ordered By: Devika Arcos on 09-29-2022 RBC (Bld) [#/Vol] 4.31 10*6/uL 4.6-6.2 [facility] [place] hemoglobin measurement (mass/volume)Ordered By: Devika Arcos on 09-29-2022 Hemoglobin (Bld) [Mass/Vol] 12.6 g/dL 13.0-16.5 [facility] Blood lymphocytes/100 leukoc ytesOrdered By: Devika Arcos on 09-29-2022 Lymphocytes/100 WBC (Bld) 12.8 % 19-41 [facility] Blood monocytes/100 leukocyt esOrdered By: Devika Arcos on 09-29-2022 Monocytes/100 WBC (Bld) 10.7 % 0-10 [facility] Blood platelet mean volumeOr dered By: Devika Arcos on 09-29-2022 Platelet mean volume (Bld) [Entitic vol] 10.6 fL 6.2-12.0 [facility] Determination of erythrocyte mean corpuscular volume (MCV)Ordered By: Devika Arcos on 09-29-2022 MCV (RBC) [Entitic vol] 90.5 fL 80-94 [facility] Hematocrit Auto (Bld) [Volum e fraction]Ordered By: Devika Arcos on 09-29-2022 Hematocrit (Bld) [Volume fraction] 39.0 % 40-54 [facility] Laboratory - Hematology and Cell countsOrdered By: Devika Arcos on 09-29-2022 Erythrocyte distribution width (RBC) [Entitic vol] 43.9 fL 35.1-43.9 [facility] Erythrocyte distribution width (RBC) [Ratio] 13.2 % 11.6-14.6 [facility] Immature granulocytes/100 WBC (Bld) 0.800 % 0.0-0.9 [facility] Comment on above: IG% - Immature Granu locytes (promyelocytes, myelocytes and metamyelocytes) > 1% indicates that a LEFT SHIFT is Present. MCH (RBC) [Entitic mass] 29.2 pg 27.0-32.0 [facility] Nucleated RBC/100 WBC (Bld) [Ratio] 0 % 0-5 [facility] MCHC Auto (RBC) [Mass/Vol]Or dered By: Devika Arcos on 09-29-2022 MCHC (RBC) [Mass/Vol] 32.3 g/dL 32-36 [facility] Platelets bldOrdered By: Devika Arcos on 09-29-2022 Platelets (Bld) [#/Vol] 273 10*3/uL 150-450 [facility] Absolute lymphocyte countOrd ered By: Eliz Cristobal on 06-20-2022 Lymphocytes Auto (Unsp spec) [#/Vol] 1.13 10*3/uL 0.83-4.51 [facility] Basophil percentageOrdered B y: Eliz Cristobal on 06-20-2022 Basophils/100 WBC (Bld) 0.3 % 0-1 [facility] Eosinophils/100 WBC (Bld) 3.0 % 0-5 [facility] Neutrophils (Bld) [#/Vol] 6.6 10*3/uL 2.0-7.7 [facility] Neutrophils/100 WBC (Bld) 71.0 % 47-70 [facility] WBC (Bld) [#/Vol] 9.3 10*3/uL 4.4-11.0 [facility] Blood erythrocytes count (nu mber/volume)Ordered By: Eliz Cristobal on 06-20-2022 RBC (Bld) [#/Vol] 4.51 10*6/uL 4.6-6.2 [facility] Blood hemoglobin measurement (mass/volume)Ordered By: Eliz Cristobal on 06-20-2022 Hemoglobin (Bld) [Mass/Vol] 13.3 g/dL 13.0-16.5 [facility] Blood lymphocytes/100 leukoc ytesOrdered By: Eliz Cristobal on 06-20-2022 Lymphocytes/100 WBC (Bld) 12.2 % 19-41 [facility] Blood monocytes/100 leukocyt esOrdered By: Eliz Cristobal on 06-20-2022 Monocytes/100 WBC (Bld) 11.5 % 0-10 [facility] Blood platelet mean volumeOr dered By: Eliz Cristobal on 06-20-2022 Platelet mean volume (Bld) [Entitic vol] 9.7 fL 6.2-12.0 [facility] Determination of erythrocyte mean corpuscular volume (MCV)Ordered By: Eliz Cristobal on 06-20-2022 MCV (RBC) [Entitic vol] 88.5 fL 80-94 [facility] Hematocrit Auto (Bld) [Volum e fraction]Ordered By: Eliz Cristobal on 06-20-2022 Hematocrit (Bld) [Volume fraction] 39.9 % 40-54 [facility] Laboratory - Hematology and Cell countsOrdered By: Eliz Cristobal on 06-20-2022 Erythrocyte distribution width (RBC) [Entitic vol] 44.1 fL 35.1-43.9 [facility] Erythrocyte distribution width (RBC) [Ratio] 13.7 % 11.6-14.6 [facility] Immature granulocytes/100 WBC (Bld) 2.000 % 0.0-0.9 [facility] Comment on above: IG% - Immature Granu locytes (promyelocytes, myelocytes and metamyelocytes) > 1% indicates that a LEFT SHIFT is Present. MCH (RBC) [Entitic mass] 29.5 pg 27.0-32.0 [facility] Nucleated RBC/100 WBC (Bld) [Ratio] 0 % 0-5 [facility] MCHC Auto (RBC) [Mass/Vol]Or dered By: Eliz Cristobal on 06-20-2022 MCHC (RBC) [Mass/Vol] 33.3 g/dL 32-36 [facility] Platelets bldOrdered By: Rolando Cristobal on 06-20-2022 Platelets (Bld) [#/Vol] 184 10*3/uL 150-450 [facility] HIV 1 and HIV-2 antibody ass ay with HIV-1 p24 antigen detectionOrdered By: Eliz Cristobal on 06-13-2022 HIV 1+2 Ab+HIV1 p24 Ag IA Ql Non-Reactive Nonreactive [facility] No Panel InformationOrdered By: Eliz Cristobal on 06-13-2022 Hepatitis B Surface Antibody Non-Reactive . [facility] Comment on above: Non Reactive: Incons istent with immunity, less than 10 mIU/mL Reactive: Consistent with immunity, greater than 9.9 mIU/mL Hepatitis C Antibody Comment Comment . [facility] Comment on above: Not infected with HC V unless early or acute infection issuspected (which may be delayed in an immunocompromisedindividual), or other evidence exists to indicate HCVinfection.Performed at: [facility] [employer] [id number] Director: Yg Perrin PhD, Phone: [phone] Serum hepatitis B virus core antibody detectionOrdered By: Eliz Cristobal on 06-13-2022 HBV core Ab Ql (S) Negative Negative [facility] Serum or plasma hepatitis B virus surface antigen detection by immunoassayOrdered By: Eliz Cristobal on 06-13-2022 HBV surface Ag IA Ql Negative Negative [facility] Blood platelet adequacy dete ction by light microscopyOrdered By: Eliz Cristobal on 06-05-2022 Platelets LM Ql (Bld) MKD DEC ADEQ [facility] Review by pathologistOrdered By: Eliz Cristobal on 06-05-2022 Pathologist review Lopez (Unsp spec) [Interp] Reviewed [facility] Comment on above: Previous reported re sult: Khushi shi Edited by: RGOOD on 06/05/22:1411Neutrophilic left shift.Marked Thrombocytopenia.Clinical correlation necessary.Tyree Lopez M.D. 06/05/22 AMENDED REPORT 06/05/22 1411 PATH REV previously reported as: Khushi shi Basophil percentageOrdered B y: Eliz Cristobal on 05-29-2022 Chloride [Moles/Vol] 102 mmol/L 98-107 [facility] Glucose [Mass/Vol] 99 mg/dL 74-106 [facility] Potassium [Moles/Vol] 3.9 mmol/L 3.5-5.1 [facility] Sodium [Moles/Vol] 137 mmol/L 136-145 [facility] Blood blasts/100 leukocytesO rdered By: Eliz Cristobal on 05-29-2022 Blasts/100 WBC (Bld) 4 % 0-0 [facility] Blood lymphocytes/100 leukoc ytesOrdered By: Eliz Cristobal on 05-29-2022 Lymphocytes/100 WBC (Bld) 4 % 19-41 [facility] Blood metamyelocytes/100 angel kocytesOrdered By: Eliz Cristobal on 05-29-2022 Metamyelocytes/100 WBC (Bld) FABRIC [facility] Blood monocytes/100 leukocyt esOrdered By: Eliz Cristobal on 05-29-2022 Monocytes/100 WBC (Bld) 5 % 0-10 [facility] Blood segmented neutrophils/ 100 leukocytesOrdered By: Eliz Cristobal on 05-29-2022 Segmented neutrophils/100 WBC (Bld) 84 % 47-70 [facility] Laboratory - Chemistry and C hemistry - challengeOrdered By: Eliz Cristobal on 05-29-2022 CO2 [Moles/Vol] 27.0 mmol/L 21.0-32.0 [facility] Urea nitrogen/Creatinine [Mass ratio] 24.8 mg/mg 10-20 [facility] Laboratory - Hematology and Cell countsOrdered By: Eliz Cristobal on 05-29-2022 Myelocytes/100 WBC (Bld) 3 % 0-0 [facility] No Panel InformationOrdered By: Eilz Cristobal on 05-29-2022 Estimated Creatinine Clearance Calc 76.39 ml/min [facility] Estimated GFR (MDRD) Amer 101 mL/min >60 [facility] Comment on above: GFR Calc Estimated GFR (MDRD) Non-Af Amer 84 mL/min >60 [facility] Comment on above: Non- GFR Calc RBC morphologyOrdered By: Dandre Cristobal on 05-29-2022 RBC morphology finding Nom (Bld) NORM C+C NORMAL NORM C&C [facility] Serum or plasma calcium donovan urement (mass/volume)Ordered By: Eliz Cristobal on 05-29-2022 Calcium [Mass/Vol] 8.7 mg/dL 8.5-10.1 [facility] Serum or plasma creatinine m easurement (mass/volume)Ordered By: Eliz Cristobal on 05-29-2022 Creatinine [Mass/Vol] 0.97 mg/dL 0.70-1.30 [facility] Comment on above: The validity of the calculated GFR & GFRAA in patients over 70 years has not been determined. Clinical correlation is essential. Serum or plasma urea nitroge n measurement (mass/volume)Ordered By: Eliz Cristobal on 05-29-2022 Urea nitrogen [Mass/Vol] 24 mg/dL 7-18 [facility] Thin prep Papanicolaou smear with manual screeningOrdered By: Eliz Cristboal on 05-29-2022 Thin prep Papanicolaou smear with manual screening 8 5-15 [facility] Total cell countOrdered By: Eliz Cristobal on 05-29-2022 Cells counted Molgen (Bld/Tiss) [#] 100 MANUAL DIFF [facility] Blood manual differential co mment interpretation (narrative result)Ordered By: Eliz Cristobal on 05-24-2022 Manual differential comment Lopez (Bld) [Interp] SCANNED [facility] Blood platelet morphology de termination (nominal result)Ordered By: Eliz Cristobal on 05-24-2022 Platelet morphology finding Nom (Bld) LARGE [facility] Absolute lymphocyte counton 09-20-2021 Lymphocytes Auto (Unsp spec) [#/Vol] 1.05 10*3/uL 0.83-4.51 [facility] Work Phone: Basophil percentageon 2021 Basophils/100 WBC (Bld) 0.3 % 0-1 [facility] Work Phone: Eosinophils/100 WBC (Bld) 0.5 % 0-5 [facility] Work Phone: Neutrophils (Bld) [#/Vol] 10.7 10*3/uL 2.0-7.7 [facility] Work Phone: Neutrophils/100 WBC (Bld) 83.8 % 47-70 [facility] Work Phone: WBC (Bld) [#/Vol] 12.7 10*3/uL 4.4-11.0 [facility] Work Phone: Blood erythrocytes count (nu mber/volume)on 09-20-2021 RBC (Bld) [#/Vol] 4.39 10*6/uL 4.6-6.2 [facility] Work Phone: Blood hemoglobin measurement (mass/volume)on 09-20-2021 Hemoglobin (Bld) [Mass/Vol] 12.8 g/dL 13.0-16.5 [facility] Work Phone: Blood lymphocytes/100 leukoc yteson 09-20-2021 Lymphocytes/100 WBC (Bld) 8.3 % 19-41 [facility] Work Phone: Blood monocytes/100 leukocyt eson 09-20-2021 Monocytes/100 WBC (Bld) 6.5 % 0-10 [facility] Work Phone: Blood platelet mean volumeon 09-20-2021 Platelet mean volume (Bld) [Entitic vol] 10.3 fL 6.2-12.0 [facility] Work Phone: Determination of erythrocyte mean corpuscular volume (MCV)on 09-20-2021 MCV (RBC) [Entitic vol] 86.1 fL 80-94 [facility] Work Phone: Hematocrit Auto (Bld) [Volum e fraction]on 09-20-2021 Hematocrit (Bld) [Volume fraction] 37.8 % 40-54 [facility] Work Phone: Laboratory - Hematology and Cell countson 09-20-2021 Erythrocyte distribution width (RBC) [Entitic vol] 42.6 fL 35.1-43.9 [facility] Work Phone: Erythrocyte distribution width (RBC) [Ratio] 13.4 % 11.6-14.6 [facility] Work Phone: Immature granulocytes/100 WBC (Bld) 0.600 % 0.0-0.9 [facility] Work Phone: Comment on above: IG% - Immature Granu locytes (promyelocytes, myelocytes and metamyelocytes) > 1% indicates that a LEFT SHIFT is Present. MCH (RBC) [Entitic mass] 29.2 pg 27.0-32.0 [facility] Work Phone: Nucleated RBC/100 WBC (Bld) [Ratio] 0 % 0-5 [facility] Work Phone: MCHC Auto (RBC) [Mass/Vol]on 09-20-2021 MCHC (RBC) [Mass/Vol] 33.9 g/dL 32-36 [facility] Work Phone: No Panel Informationon 09-20 Thyroid Stimulating Hormone (TSH) 1.30 uIU/mL 0.358-3.74 [facility] Work Phone: Platelets bldon 09-20-2021 Platelets (Bld) [#/Vol] 230 10*3/uL 150-450 [facility] Work Phone: Serum heterophile antibody d etectionon 09-20-2021 Heterophile Ab Ql (S) Negative Negative [facility] Work Phone: Absolute lymphocyte counton 05-10-2021 Lymphocytes Auto (Unsp spec) [#/Vol] 0.91 10*3/uL 0.83-4.51 [facility] Work Phone: Basophil percentageon 2021 Basophils/100 WBC (Bld) 0.8 % 0-1 [facility] Work Phone: Bilirubin [Mass/Vol] 0.60 mg/dL 0.20-1.00 [facility] Work Phone: Comment on above: For patients on eltr ombopag therapy, use of Dimension Muir TBIL is not recommended. Chloride [Moles/Vol] 105 mmol/L 98-107 [facility] Work Phone: [phone] Cholesterol [Mass/Vol] 191 mg/dL <200 [facility] Work Phone: Comment on above: <200 mg/dL Desirable 200-240 mg/dL Borderline >240 mg/dL High Risk Eosinophils/100 WBC (Bld) 1.1 % 0-5 [facility] Work Phone: Glucose [Mass/Vol] 85 mg/dL 74-106 [facility] Work Phone: Neutrophils (Bld) [#/Vol] 6.0 10*3/uL 2.0-7.7 [facility] Work Phone: [phone] Neutrophils/100 WBC (Bld) 78.4 % 47-70 [facility] Work Phone: [phone] Potassium [Moles/Vol] 3.8 mmol/L 3.5-5.1 [facility] Work Phone: Protein [Mass/Vol] 8.2 g/dL 6.4-8.2 [facility] Work Phone: Sodium [Moles/Vol] 138 mmol/L 136-145 [facility] Work Phone: Testosterone [Mass/Vol] 146 ng/dL [facility] Work Phone: Comment on above: Adult male reference interval is based on a population ofhealthy nonobese males (BMI <30) between 19 and 39 yearsold. rosalino Sr.al. JCEM 2017,102;9922-3307. PMID:25227534. Triglyceride [Mass/Vol] 64 mg/dL [facility] Work Phone: Comment on above: The drugs N-Acetylcy steine and Metamizole may falsely depress this assay.Serum Triglycerides Reference Interval Normal <150 mg/dL Borderline high 150 - 199 mg/dL High 200 - 499 mg/dL Very High > or = 500 mg/dL WBC (Bld) [#/Vol] 7.7 10*3/uL 4.4-11.0 [facility] Work Phone: Blood erythrocytes count (nu mber/volume)on 05-10-2021 RBC (Bld) [#/Vol] 4.91 10*6/uL 4.6-6.2 [facility] Work Phone: RBC (Bld) [#/Vol] 4.94 10*6/uL [facility] Work Phone: Blood hemoglobin measurement (mass/volume)on 05-10-2021 Hemoglobin (Bld) [Mass/Vol] 14.5 g/dL 13.0-16.5 [facility] Work Phone: Blood lymphocytes/100 leukoc yteson 05-10-2021 Lymphocytes/100 WBC (Bld) 12.0 % 19-41 [facility] Work Phone: Blood monocytes/100 leukocyt eson 05-10-2021 Monocytes/100 WBC (Bld) 7.2 % 0-10 [facility] Work Phone: Blood platelet mean volumeon 05-10-2021 Platelet mean volume (Bld) [Entitic vol] 10.5 fL 6.2-12.0 [facility] Work Phone: Determination of erythrocyte mean corpuscular volume (MCV)on 05-10-2021 MCV (RBC) [Entitic vol] 87.8 fL 80-94 [facility] Work Phone: Erythrocyte qtdnbjk-0-pmgthx ate dehydrogenase (enzymatic activity/mass)on 05-10-2021 G6PD (RBC) [Catalytic activity/Mass] 224 [facility] Work Phone: Comment on above: Result Units: [...] 05-10-2021 Testosterone Free/Testosterone.total [Mass fraction] 3.03 % [facility] Work Phone: Hematocrit Auto (Bld) [Volum e fraction]on 05-10-2021 Hematocrit (Bld) [Volume fraction] 43.1 % 40-54 [facility] Work Phone: Iron measurement (mass/mass) on 05-10-2021 Iron (Unsp spec) [Mass/Mass] 73 ug/dL 65-175 [facility] Work Phone: Laboratory - Chemistry and C hemistry - challengeon 05-10-2021 ALP [Catalytic activity/Vol] 106 U/L 45-117 [facility] Work Phone: ALT [Catalytic activity/Vol] 54 U/L 16-61 [facility] Work Phone: CO2 [Moles/Vol] 26.0 mmol/L 21.0-32.0 [facility] Work Phone: [phone] Cobalamin (Vitamin B12) [Mass/Vol] 725 pg/mL 211-911 [facility] Work Phone: Free T4 [Mass/Vol] 0.98 ng/dL 0.76-1.46 [facility] Work Phone: Globulin (S) [Mass/Vol] 4.2 g/dL 2.2-4.2 [facility] Work Phone: Lipoprotein a [Moles/Vol] 19.6 nmol/L [facility] Work Phone: Comment on above: Note: Values greater than or equal to 75.0 nmol/L may indicate an independent risk factor for CHD, but must be evaluated with caution when applied to non- populations due to the influence of genetic factors on Lp(a) across ethnicities. Magnesium [Mass/Vol] 2.3 mg/dL 1.6-2.6 [facility] Work Phone: Urea nitrogen/Creatinine [Mass ratio] 20.9 mg/mg 10-20 [facility] Work Phone: Laboratory - Hematology and Cell countson 05-10-2021 Erythrocyte distribution width (RBC) [Entitic vol] 42.7 fL 35.1-43.9 [facility] Work Phone: Erythrocyte distribution width (RBC) [Ratio] 13.2 % 11.6-14.6 [facility] Work Phone: Immature granulocytes/100 WBC (Bld) 0.500 % 0.0-0.9 [facility] Work Phone: Comment on above: IG% - Immature Granu locytes (promyelocytes, myelocytes and metamyelocytes) > 1% indicates that a LEFT SHIFT is Present. MCH (RBC) [Entitic mass] 29.5 pg 27.0-32.0 [facility] Work Phone: [phone] Nucleated RBC/100 WBC (Bld) [Ratio] 0 % 0-5 [facility] Work Phone: [phone] MCHC Auto (RBC) [Mass/Vol]on 05-10-2021 MCHC (RBC) [Mass/Vol] 33.6 g/dL 32-36 [facility] Work Phone: No Panel Informationon 05-10 C-Reactive Protein High Sensitivity 5.15 mg/L [facility] Work Phone: Comment on above: Low Relative Risk of CVD <1.0 mg/L Average Relative Risk of CVD 1.0 - 3.0 mg/L High Relative Risk of CVD >3.0 mg/L Dehydroepiandrosterone Sulfate 144.0 ug/dL [facility] Work Phone: Estimated GFR (MDRD) Amer 124 mL/min >60 [facility] Work Phone: Comment on above: GFR Calc Estimated GFR (MDRD) Non-Af Amer 103 mL/min >60 [facility] Work Phone: Comment on above: Non- GFR Calc Free Triiodothyronine (T3) pg/dL 2.6 pg/mL 2.18-3.98 [facility] Work Phone: Homocysteine 9.1 umol/L 3.2-10.7 [facility] Work Phone: Insulin Level 13.5 mU/L 2.6-37.6 [facility] Work Phone: Comment on above: Please Note: INSULIN METHOD & REFERENCE RANGE CHANGEEffective 04/05/2017. Ionized Calcium 5.2 mg/dL [facility] Work Phone: Miscellaneous Test See comment [facility] Work Phone: Comment on above: TEST RESULT LIMITSMa gnesium, RBC 6.6 mg/dL 4.2-6.8 Verified by repeat analysis TESTING PERFORMED AT [facility]. ORIGINAL REPORT ON FILE IN LAB CONTAINS ADDITIONAL TEST SITE INFORMATION. MTHFR Thermolabile Variant DNA Anal Comment [facility] Work Phone: Comment on above: Result:c.665C>T (p. [id number]), legacy name: [id number] - NotDetected c.1286A>C (p. [id number]), legacy name: [id number] -Not Detected Interpretation:This result is not associated with an increased risk forhyperhomocysteinemia. See Additional Clinical Informationand Comments.Additional Clinical Information:Hyperhomocysteinemia is multifactorial involving genetic,clinical, and environmental risk factors. Reduced enzymeactivity of methylenetetrahydrofolate reductase (MTHFR) victor manuel genetic risk factor for hyperhomocysteinemia,particularly when serum folate levels are low. There aretwo common variants in the MTHFR gene that can decreaseenzyme activity; c.665C>T (p. [id number]), legacy [id number], and c.1286A>C (p. [id number]), legacy name [id number].These variants do not independently increase risk ofconditions [...] due to limited evidence of clinical utility(PMID: 71759891). Comments:Genetic Coordinators are available for health careproviders to discuss results at [phone]).Test Details:Variants Analyzed: c.665C>T (p. [id number]), legacy name:[id number] and c.1286A>C (p. [id number]), legacy name: [id number]/Limitations:DNA analysis of the MTHFR gene was performed [...] was developed and its performancecharacteristics determined by [employer]. It has not beencleared or approved by the Food and Drug Administration.References:Diana SE, Dawson CJ, Aston HV. [facility] PracticeGuideline: lack of evidence for MTHFR polymorphism testing.[place] Med. 2012;15(2):153-6. doi: 10.1038/gim.2012.165.Epub 2012Mar 28. PMID: 29876137.[employer]'Committee on Practice Bulletins-Obstetrics. [facility] PracticeBulletin No. 197: Inherited Thrombophilias in .Obstet Gynecol. 2018 Sep;132(1):e18-e34. doi:10.1097/AOG.[id number]. Erratum in: Obstet Gynecol.2018 Dec;132(4):1069. PMID: 03650132.Gamaliel Esquivel, PhD, Naun Lopez, PhD, Steve Douglas, PhD, Jose G Gutierrez, PhD, [facility]. Gely Parish, PhD, Sp Florian, PhD, [facility] Prostate Specific Antigen Total 0.42 ng/mL 0.0-4.0 [facility] Work Phone: Comment on above: This test was perfor med using the TPSA assay method for thePark [facility] chemistry system. Values obtained with differentassay methods cannot be used interchangably.When changing PSA assays in the course of monitoring apatient, additional sequential testing should be carriedout to confirm baseline values. Reverse Triiodothyronine (T3) 19.1 ng/dL [facility] Work Phone: Comment on above: This test was develo ped and its performance characteristicsdetermined by [facility]. It has not been cleared orapproved by the Food and Drug Administration. Somatomedin-C 84 ng/mL [facility] Work Phone: Thyroglobulin Antibody < 1.0 IU/mL [facility] Work Phone: Comment on above: Thyroglobulin Antibo dy measured by [facility] [employer] Thyroglobulin Level 11.4 ng/mL [facility] Work Phone: Comment on above: According to the [facility] Academy of Clinical Biochemistry,the reference interval for Thyroglobulin (TG) should berelated to euthyroid patients and not for patients whounderwent thyroidectomy. TG reference intervals for thesepatients depend on the residual mass of the thyroid tissueleft after surgery. Establishing a post-operative baselineis recommended. The assay limit of quantitation is 0.1ng/mLThyroglobulin measured by Mike [place] [employer] Thyroid Stimulating Hormone (TSH) 1.16 uIU/mL 0.358-3.74 [facility] Work Phone: Total Iron Binding Capacity 373 ug/dL 250-450 [facility] Work Phone: Vitamin D 25-Hydroxy 53.3 ng/mL [facility] Work Phone: Comment on above: Vitamin D 25(OH) Sta tus Range Deficiency <20 ng/mL (50nmol/L) Insufficiency 20 - 30 ng/mL (50 - 75 nmol/L) Sufficiency 30 - 100 ng/mL (75 - 250 nmol/L) Toxicity >100 ng/mL (>250 nmol/L) Platelets bldon 05-10-2021 Platelets (Bld) [#/Vol] 207 10*3/uL 150-450 [facility] Work Phone: Serum or plasma albumin donovan urement (mass/volume)on 05-10-2021 Albumin [Mass/Vol] 4.0 g/dL 3.2-5.0 [facility] Work Phone: Serum or plasma albumin/glob ulin mass ratioon 05-10-2021 Albumin/Globulin [Mass ratio] 1.0 {ratio} 0.9-2.4 [facility] Work Phone: Serum or plasma calcium donovan urement (mass/volume)on 05-10-2021 Calcium [Mass/Vol] 9.0 mg/dL 8.5-10.1 [facility] Work Phone: Serum or plasma cholesterol in HDL measurement (mass/volume)on 05-10-2021 Cholesterol in HDL [Mass/Vol] 63 mg/dL [facility] Work Phone: Comment on above: The drugs N-Acetylcy steine and Metamizole may falsely depress this assay. Reference Range HDL <40 mg/dL Low HDL Cholesterol HDL >or= 60 mg/dL High HDL Cholesterol Serum or plasma cholesterol in VLDL measurement (mass/volume)on 05-10-2021 Cholesterol in VLDL [Mass/Vol] 13 mg/dL 5-40 [facility] Work Phone: Serum or plasma cortisol cody surement (mass/volume)on 05-10-2021 Cortisol [Mass/Vol] 7.10 ug/dL 3.44-22.45 [facility] Work Phone: Comment on above: Adult (AM) 5.27 - 22 .45 ug/dL Adult (PM) 3.44 - 16.76 ug/dLPlease note revised CORTISOL reference range effective 2019. Serum or plasma creatinine m easurement (mass/volume)on 05-10-2021 Creatinine [Mass/Vol] 0.81 mg/dL 0.70-1.30 [facility] Work Phone: Comment on above: The validity of the calculated GFR & GFRAA in patients over 70 years has not been determined. Clinical correlation is essential. Serum or plasma estradiol (E 2) measurement (mass/volume)on 05-10-2021 E2 [Mass/Vol] 20.9 pg/mL [facility] Work Phone: Comment on above: NORMAL REFERENCE [...] (mass/volume)on 05-10-2021 Ferritin [Mass/Vol] 202 ng/mL 26-388 [facility] Work Phone: Serum or plasma folate measu rement (mass/volume)on 05-10-2021 Folate [Mass/Vol] 14.90 ng/mL 3.1-55.4 [facility] Work Phone: Serum or plasma low density lipoprotein (LDL) cholesterol measurement (mass/volume)on 05-10-2021 Cholesterol in LDL [Mass/Vol] 115 mg/dL 0-130 [facility] Work Phone: Serum or plasma progesterone measurement (mass/volume)on 05-10-2021 Progesterone [Mass/Vol] ng/mL See Comment [facility] Work Phone: Comment on above: Progesterone Referen [...] Sex hormone binding globulin [Moles/Vol] 38.9 nmol/L [facility] Work Phone: Comment on above: Performed at: [facility] chris [address] [id number] Director: Yg Perrin PhD, Phone: [phone] at: [facility] [address] [id number] Director: Margarito Sanders MD, Phone: [phone] at: [facility] [id number] [place], [place] [id number] Director: America Ledezma [facility], Phone: [phone] Serum or plasma testosterone free measurement (mass/volume)on 05-10-2021 Testosterone Free [Mass/Vol] 4.42 ng/dL [facility] Work Phone: Serum or plasma thyroperoxid ase antibody assay (units/volume)on 05-10-2021 TPO Ab Qn [IU]/mL [facility] Work Phone: Serum or plasma urea nitroge n measurement (mass/volume)on 05-10-2021 Urea nitrogen [Mass/Vol] 17 mg/dL 7-18 [facility] Work Phone: Serum or plasma uric acid me asurement (mass/volume)on 05-10-2021 Urate [Mass/Vol] 3.7 mg/dL 3.5-7.2 [facility] Work Phone: Comment on above: The drugs N-Acetylcy steine and Metamizole may falsely depress this assay. Thin prep Papanicolaou smear with manual screeningon 05-10-2021 Thin prep Papanicolaou smear with manual screening 30 U/L 15-37 [facility] Work Phone: Thin prep Papanicolaou smear with manual screening 7 5-15 [facility] Work Phone: Thin prep Papanicolaou smear with manual screening Not Reportable [facility] Work Phone: Whole blood hemoglobin A1c/t otal hemoglobin ratio (mass fraction)on 05-10-2021 HbA1c (Bld) [Mass fraction] 5.3 % 3.8-5.6 [facility] Work Phone: Comment on above: Normal < 5.7 % Predi abetic 5.7 - 6.4 % Diabetic >or= 6.5 % Please note range changes. Erythrocyte distribution wid th standard deviationon 08-12-2018 Erythrocyte distribution width (RBC) [Entitic vol] 43.8 fL 35.1-43.9 [facility] Laboratory - Hematology and Cell countson 08-12-2018 Erythrocyte distribution width (RBC) [Ratio] 13.6 % 11.6-14.6 [facility] Eosinophils/100 WBC Auto (Bl d)on 07-15-2018 Eosinophils/100 WBC (Bld) 1 % 0-5 [facility] Laboratory - Microbiology an d Antimicrobial susceptibilityon 07-15-2018 HBV core IgM IA Ql Negative Negative [facility] HCV Ab IB Ql (S) <0.1 s/co ratio 0.0-0.9 [facility] No Panel Informationon 07-15 Hepatitis Be Antibody Negative Negative [facility] Hepatitis Be Antigen Negative Negative [facility] Hepatitis C Comment Comment . [facility] Comment on above: Non reactive HCV ant ibody screen is consistent with no HCVinfection, unless recent infection is suspected or otherevidence exists to indicate HCV infection. Miscellaneous Test See comment [facility] Comment on above: TEST RESULT LIMITSHe licobacter pylori, IgM AbH pylori, IgM Abs <9.0 units 0.0 - 8.9 Negative <9.0 Equivocal 9.0 - 11.0 Positive >11.0Disclaimer: This test was developed and its performance characteristicsdetermined by [facility]. It has not been cleared or approvedby the Food and Drug Administration. TESTING PERFORMED AT [facility]. ORIGINAL REPORT ON FILE IN LAB CONTAINS ADDITIONAL TEST SITE INFORMATION. Serum Helicobacter pylori Ig G antibody assay (units/volume)on 07-15-2018 H. pylori IgG Qn (S) 0.50 0.00-0.79 [facility] Comment on above: Result Units: Index Value Negative <0.80 Equivocal 0.80 - 0.89 Positive >0.89Performed at: [facility] [id number] [place], [place] [id number] Director: Yg Perrin PhD, Phone: [phone] Serum or plasma IgG measurem ent (mass/volume)on 07-15-2018 IgG [Mass/Vol] 1008 mg/dL 700-1600 [facility] Serum or plasma IgM measurem ent (mass/volume)on 07-15-2018 IgM [Mass/Vol] 60 mg/dL 20-172 [facility] Comment on above: Performed at: [facility] [id number] [place], [place] [id number] Director: Yg Perrin PhD, Phone: [phone] Office Visiton 09-07-2016 Dietary management education, guidance, and counseling (procedure) yes Invalid Interpretation Code [facility] Work Phone: [phone] Documentation of current medications (procedure) Done Invalid Interpretation Code [facility] Work Phone: [phone] Fall risk assessment No [facility] Work Phone: [phone] Protein mass conc Done [facility] Work Phone: [phone] Tobacco smoking status AZIS Never smoker [facility] Work Phone: [phone] Tobacco use [facility] Never smoker Invalid Interpretation Code [facility] Work Phone: [phone] Clinical Lists Update: 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 political worker 09-05-2016 Tobacco smoking status NHIS Never [facility] Work Phone: Tobacco smoking status AZIS Never smoker [facility] Work Phone: Clinical Lists Update: Prelo political worker 11-24-2015 Cholesterol in HDL mass conc 48 mg/dL [facility] Work Phone: [phone] Cholesterol in LDL mass conc 114 mg/dL [facility] Work Phone: [phone] Cholesterol mass conc 190 mg/dL [facility] Work Phone: [phone] Triglyceride mass conc 140 mg/dL [facility] Work Phone: [phone] Vital Signs Date Time Vital Sign Value Performing Clinician Facility 10-27-2024 20:51-0400 Body temperature 98 [degF] Dr. Devika Arcos MD Work Phone: [facility] 10-27-2024 20:51-0400 Diastolic blood pressure 91 mm[Hg] Dr. Devika Arcos MD Work Phone: [facility] 10-27-2024 20:51-0400 Heart rate 56 /min Dr. Devika Arcos MD Work Phone: [facility] 10-27-2024 20:51-0400 Respiratory rate 15 /min Dr. Devika Arcos MD Work Phone: [facility] 10-27-2024 20:51-0400 SaO2% (BldA) [Mass fraction] 99 % Dr. Devika Arcos MD Work Phone: [facility] 10-27-2024 20:51-0400 Systolic blood pressure 186 mm[Hg] Dr. Devika Arcos MD Work Phone: [facility] 10-27-2024 14:58-0400 Body height 172.[address] Devika Arcos MD Work Phone: [facility] 10-27-2024 14:58-0400 Body mass index (BMI) [Ratio] 34.3 kg/m2 Dr. Devika Arcos MD Work Phone: [facility] 10-27-2024 14:58-0400 Body weight 102.[address] Devika Arcos MD Work Phone: [facility] 08-08-2024 15:18-0400 Body mass index (BMI) [Ratio] 33.05 kg/m2 Jeremias Dempsey Jr., MD Work Phone: [facility] 08-08-2024 15:18-0400 Body weight 101.52 kg Jeremias Dempsey Jr., MD Work Phone: [facility] 08-08-2024 15:18-0400 Diastolic blood pressure 90 mm[Hg] Jeremias Dempsey Jr., MD Work Phone: [facility] Comment on above: pt did not take BP meds this AM 08-08-2024 15:18-0400 Heart rate 60 /min Jeremias Dempsey Jr., MD Work Phone: [facility] 08-08-2024 15:18-0400 Respiratory rate 18 /min Jeremias Dempsey Jr., MD Work Phone: [facility] 08-08-2024 15:18-0400 SaO2% (BldA) [Mass fraction] 98 % Jeremias Dempsey Jr., MD Work Phone: [facility] 08-08-2024 15:18-0400 Systolic blood pressure 170 mm[Hg] Jeremias Dempsey Jr., MD Work Phone: [facility] Comment on above: pt did not take BP meds this AM 02-18-2024 16:02-0500 Diastolic blood pressure 97 mm[Hg] Jeremias Dempsey Jr., MD Work Phone: [facility] Comment on above: pt did not take bp meds nor has any wate r today 02-18-2024 16:02-0500 Systolic blood pressure 175 mm[Hg] Jeremias Dempsey Jr., MD Work Phone: [facility] Comment on above: pt did not take bp meds nor has any wate r today 02-18-2024 15:06-0500 Body mass index (BMI) [Ratio] 33.37 kg/m2 Jeremias Dempsey Jr., MD Work Phone: [facility] 02-18-2024 15:06-0500 Body weight 102.51 kg Jeremias Dempsey Jr., MD Work Phone: [facility] 02-18-2024 15:06-0500 Heart rate 59 /min Jeremias Dempsey Jr., MD Work Phone: [facility] 02-18-2024 15:06-0500 SaO2% (BldA) [Mass fraction] 100 % Jeremias Dempsey Jr., MD Work Phone: [facility] 11-10-2022 15:20-0400 Body height 175.3 cm Jimmy Benitez MD Work Phone: [facility] 11-10-2022 15:20-0400 Body weight 108.86 kg Jimmy Benitez MD Work Phone: [facility] 11-10-2022 15:20-0400 Diastolic blood pressure 67 mm[Hg] Jimmy Benitez MD Work Phone: [facility] 11-10-2022 15:20-0400 Heart rate 73 /min Jimmy Benitez MD Work Phone: [facility] 11-10-2022 15:20-0400 SaO2% (BldA) [Mass fraction] 95 % Jimmy Benitez MD Work Phone: [facility] 11-10-2022 15:20-0400 Systolic blood pressure 121 mm[Hg] Jimmy Benitez MD Work Phone: [facility] 07-10-2022 13:51-0400 Body temperature 97.39 [degF] Jimmy Benitez MD Work Phone: [facility] 07-10-2022 13:51-0400 Body weight 112.58 kg Jimmy Benitez MD Work Phone: [facility] 07-10-2022 13:51-0400 Diastolic blood pressure 84 mm[Hg] Jimmy Benitez MD Work Phone: [facility] 07-10-2022 13:51-0400 Heart rate 68 /min Jimmy Benitez MD Work Phone: [facility] 07-10-2022 13:51-0400 SaO2% (BldA) [Mass fraction] 96 % Jimmy Benitez MD Work Phone: [facility] 07-10-2022 13:51-0400 Systolic blood pressure 145 mm[Hg] Jimmy Benitez MD Work Phone: [facility] 06-13-2022 10:25-0400 Body height 172.[address] Devika Arcos Work Phone: [facility] 06-13-2022 10:25-0400 Body mass index (BMI) [Ratio] 36.1 kg/m2 Dr. Devika Arcos Work Phone: [facility] 06-13-2022 10:25-0400 Body temperature 97.1 [degF] Dr. Devika Arcos Work Phone: [facility] 06-13-2022 10:25-0400 Body weight 108.[address] Devika Arcos Work Phone: [facility] 06-13-2022 10:25-0400 Diastolic blood pressure 84 mm[Hg] Dr. Devika Arcos Work Phone: [facility] 06-13-2022 10:25-0400 Heart rate 66 /min Dr. Devika Arcos Work Phone: [facility] 06-13-2022 10:25-0400 Respiratory rate 16 /min Dr. Devika Arcos Work Phone: [facility] 06-13-2022 10:25-0400 SaO2% (BldA) [Mass fraction] 96 % Dr. Devika Arcos Work Phone: [facility] 06-13-2022 10:25-0400 Systolic blood pressure 135 mm[Hg] Dr. Devika Arcos Work Phone: [facility] 06-08-2022 16:28-0400 Body temperature 97.7 [degF] Bailee Dahlhausen ADZING AND BORING MACHINE OPERATOR.CNC SERVICE ENGINEER Work Phone: [facility] 06-08-2022 16:28-0400 Body weight 107.96 kg Bailee Dahlhausen ADZING AND BORING MACHINE OPERATOR.CNC SERVICE ENGINEER Work Phone: [facility] 06-08-2022 16:28-0400 Diastolic blood pressure 88 mm[Hg] Bailee Dahlhausen ADZING AND BORING MACHINE OPERATOR.CNC SERVICE ENGINEER Work Phone: [facility] 06-08-2022 16:28-0400 Heart rate 64 /min Bailee Dahlhausen ADZING AND BORING MACHINE OPERATOR.CNC SERVICE ENGINEER Work Phone: [facility] 06-08-2022 16:28-0400 Respiratory rate 16 /min Bailee Dahlhausen ADZING AND BORING MACHINE OPERATOR.CNC SERVICE ENGINEER Work Phone: [facility] 06-08-2022 16:28-0400 SaO2% (BldA) [Mass fraction] 97 % Bailee Dahlhausen ADZING AND BORING MACHINE OPERATOR.CNC SERVICE ENGINEER Work Phone: [facility] 06-08-2022 16:28-0400 Systolic blood pressure 154 mm[Hg] Bailee Dahlhausen ADZING AND BORING MACHINE OPERATOR.CNC SERVICE ENGINEER Work Phone: [facility] 12-29-2021 16:22-0400 Body temperature 97.59 [degF] Bailee Dahlhausen ADZING AND BORING MACHINE OPERATOR.CNC SERVICE ENGINEER Work Phone: [facility] 12-29-2021 16:22-0400 Body weight 102.97 kg Bailee Dahlhausen ADZING AND BORING MACHINE OPERATOR.CNC SERVICE ENGINEER Work Phone: [facility] 12-29-2021 16:22-0400 Diastolic blood pressure 94 mm[Hg] Bailee Dahlhausen ADZING AND BORING MACHINE OPERATOR.CNC SERVICE ENGINEER Work Phone: [facility] 12-29-2021 16:22-0400 Heart rate 60 /min Bailee Dahlhausen ADZING AND BORING MACHINE OPERATOR.CNC SERVICE ENGINEER Work Phone: [facility] 12-29-2021 16:22-0400 Respiratory rate 16 /min Bailee Dahlhausen ADZING AND BORING MACHINE OPERATOR.CNC SERVICE ENGINEER Work Phone: [facility] 12-29-2021 16:22-0400 SaO2% (BldA) [Mass fraction] 96 % Bailee Dahlhausen ADZING AND BORING MACHINE OPERATOR.CNC SERVICE ENGINEER Work Phone: [facility] 12-29-2021 16:22-0400 Systolic blood pressure 176 mm[Hg] Bailee Dahlhausen ADZING AND BORING MACHINE OPERATOR.CNC SERVICE ENGINEER Work Phone: [facility] 09-15-2021 11:28-0400 Body height 175.3 cm Virginia AMAYA-C Work Phone: [facility] 09-15-2021 11:28-0400 Body temperature 97.81 [degF] Virginia Renteria PA-C Work Phone: [facility] 09-15-2021 11:28-0400 Body weight 102.51 kg Virginia Wormald PA-C Work Phone: [facility] 09-15-2021 11:28-0400 Diastolic blood pressure 90 mm[Hg] Virginia Wormald PA-C Work Phone: [facility] 09-15-2021 11:28-0400 Heart rate 68 /min Virginia Wormald PA-C Work Phone: [facility] 09-15-2021 11:28-0400 Respiratory rate 16 /min Virginia Wormald PA-C Work Phone: [facility] 09-15-2021 11:28-0400 SaO2% (BldA) [Mass fraction] 97 % Virginia Wormald PA-C Work Phone: [facility] 09-15-2021 11:28-0400 Systolic blood pressure 156 mm[Hg] Vigrinia Wormald PA-C Work Phone: [facility] 09-08-2021 13:48-0400 Body temperature 98.2 [degF] Bailee Dahlhausen ADZING AND BORING MACHINE OPERATOR.CNC SERVICE ENGINEER Work Phone: [facility] 09-08-2021 13:48-0400 Body weight 104.33 kg Bailee Dahlhausen ADZING AND BORING MACHINE OPERATOR.CNC SERVICE ENGINEER Work Phone: [facility] 09-08-2021 13:48-0400 Diastolic blood pressure 82 mm[Hg] Bailee Dahlhausen ADZING AND BORING MACHINE OPERATOR.CNC SERVICE ENGINEER Work Phone: [facility] 09-08-2021 13:48-0400 Heart rate 67 /min Bailee Dahlhausen ADZING AND BORING MACHINE OPERATOR.CNC SERVICE ENGINEER Work Phone: [facility] 09-08-2021 13:48-0400 Respiratory rate 18 /min Bailee Dahlhausen ADZING AND BORING MACHINE OPERATOR.CNC SERVICE ENGINEER Work Phone: [facility] 09-08-2021 13:48-0400 SaO2% (BldA) [Mass fraction] 96 % Bailee Dahlhausen ADZING AND BORING MACHINE OPERATOR.CNC SERVICE ENGINEER Work Phone: [facility] 09-08-2021 13:48-0400 Systolic blood pressure 138 mm[Hg] Baileejohnny Cohenmarilinnathanalfredo ADZING AND BORING MACHINE OPERATOR.CNC SERVICE ENGINEER Work Phone: [facility] 09-08-2021 10:36-0400 Body height 173.[address] Devika Arcos Work Phone: [facility] Work Phone: 09-08-2021 10:36-0400 Body mass index (BMI) [Ratio] 35.5 kg/m2 Dr. Devika Arcos Work Phone: [facility] Work Phone: 09-08-2021 10:36-0400 Body weight 107.[address] Devika Arcos Work Phone: [facility] Work Phone: 09-08-2021 10:36-0400 Diastolic blood pressure 80 mm[Hg] Dr. Devika Arcos Work Phone: [facility] Work Phone: 09-08-2021 10:36-0400 Heart rate 64 /min Dr. Devika Arcos Work Phone: [facility] Work Phone: 09-08-2021 10:36-0400 Respiratory rate 16 /min Dr. Devika Arcos Work Phone: [facility] Work Phone: 09-08-2021 10:36-0400 Systolic blood pressure 172 mm[Hg] Dr. Devika Arcos Work Phone: [facility] Work Phone: 07-08-2021 10:34-0400 Body temperature 97.81 [degF] Jeremias Dempsey Jr., MD Work Phone: [facility] 07-08-2021 10:34-0400 Body weight 101.61 kg Jeremias Dempsey Jr., MD Work Phone: [facility] 07-08-2021 10:34-0400 Diastolic blood pressure 82 mm[Hg] Jeremias Dempsey Jr., MD Work Phone: [facility] 07-08-2021 10:34-0400 Heart rate 59 /min Jeremias Dempsey Jr., MD Work Phone: [facility] 07-08-2021 10:34-0400 Respiratory rate 18 /min Jeremias Dempsey Jr., MD Work Phone: [facility] 07-08-2021 10:34-0400 SaO2% (BldA) [Mass fraction] 96 % Jeremias Dempsey Jr., MD Work Phone: [facility] 07-08-2021 10:34-0400 Systolic blood pressure 142 mm[Hg] Jeremias Dempsey Jr., MD Work Phone: [facility] 02-04-2019 10:48-0500 Body mass index (BMI) [Ratio] 33.5 kg/m2 Dr. Devika Arcos Work Phone: [facility] 02-04-2019 10:48-0500 Body temperature 98 [degF] Dr. Devika Arcos Work Phone: [facility] 02-04-2019 10:48-0500 Body weight 101.[address] Devika Arcos Work Phone: [facility] 02-04-2019 10:48-0500 Diastolic blood pressure 96 mm[Hg] Dr. Devika Arcos Work Phone: [facility] 02-04-2019 10:48-0500 Heart rate 59 /min Dr. Devika Arcos Work Phone: [facility] 02-04-2019 10:48-0500 Respiratory rate 16 /min Dr. Devika Arcos Work Phone: [facility] 02-04-2019 10:48-0500 SaO2% (BldA) [Mass fraction] 97 % Dr. Devika Arcos Work Phone: [facility] 02-04-2019 10:48-0500 Systolic blood pressure 144 mm[Hg] Dr. Devika Arcos Work Phone: [facility] 09-07-2016 15:13-0400 BMI (Body Mass Index) 31.89 kg/m2 [facility] Work Phone: 09-07-2016 15:13-0400 BP Diastolic 88 mm[Hg] Vanessa Haynes [facility] Work Phone: 09-07-2016 15:13-0400 BP Systolic 148 mm[Hg] Vanessa Haynes [facility] Work Phone: 09-07-2016 15:13-0400 Height 175.26 cm [facility] Work Phone: 09-07-2016 15:13-0400 Pulse (Heart Rate) 48 /min [facility]issy [facility] Work Phone: 09-07-2016 15:13-0400 Respiratory Rate 16 /min [facility] Work Phone: 09-07-2016 15:13-0400 Weight 97.98 kg Vanessa [facility] Work Phone: Encounters Encounter Date Encounter Type Care Provider Facility Start: 10-27-2024 End: 10-27-2024 Emergency department patient visit Dr. Devika Arcos MD Work Phone: -Emergency Department Work Phone: Start: 10-24-[address] Devika Arcos MD Work Phone: [facility] Work Phone: Start: 10-24-2024 ambulatory OOT SMAL Facility:[facility] Start: 10-20-2024 ambulatory OBDULIO KITCHEN Facility:[facility] Start: 10-10-2024 End: 10-17-2024 Refill Jeremias Dempsey MD Work Phone: Neurology Comment on above: Refill Request Start: 10-08-2024 End: 10-08-[address] Devika Arcos MD Work Phone: [facility] Start: 10-08-2024 End: 10-08-[address] Devika Arcos MD Work Phone: -[facility] Work Phone: Start: 10-08-2024 End: 10-08-2024 ambulatory OOTDR SMAL Facility:[facility] Start: 08-08-2024 End: 08-08-2024 Patient encounter procedure Jeremias Dempsey MD Work Phone: Neurology Comment on above: Parkinson's disease, unspecified whether dyskinesia present, unspecified whether manifestations fluctuate (HCC) (Primary Dx); IBAN (obstructive sleep apnea); RLS (restless legs syndrome); Shortness of breath; Diaphoresis; Temperature intolerance; Hypertension, unspecified type; Nonintractable episodic headache, unspecified headache type Start: 08-08-2024 End: 08-08-2024 ambulatory JEREMIAS DEMPSEY JR Facility:[facility] Start: 08-08-2024 End: 08-27-2024 Telephone encounter Jeremias Dempsey MD Work Phone: Neurology Comment on above: Request Outside [facility] Records (Sleep Study) Start: 08-07-2024 End: 08-07-2024 Telephone encounter Jeremias Dempsey MD Work Phone: Neurology Start: 07-22-2024 End: 07-22-[address] Devika Arcos MD Work Phone: -[facility] Work Phone: Start: 07-22-2024 End: 07-22-2024 ambulatory OOTDR SMAL Facility:[facility] Start: 05-28-2024 ambulatory Devika Acros Facility: [facility] Start: 05-01-2024 End: 05-12-2024 ambulatory Jeremias Dempsey MD Work Phone: Neurology Comment on above: Regarding appt Start: 05-01-2024 End: 05-12-2024 E-mail encounter from caregiver Jeremias Dempsey Jr., MD Work Phone: Neurology Start: 04-09-2024 End: 04-09-2024 [facility] Start: 03-19-2024 End: 03-20-2024 Refill Jeremias Dempsey [...] 02-18-2024 End: 02-18-2024 ambulatory JEREMIAS DEMPSEY JR Facility:[facility] Start: 12-11-2023 End: 12-11-2023 ambulatory Devika Natan [facility] Facility:[facility] Start: 06-29-2023 ambulatory Jimmy Benitez MD Work Phone: Neurology Comment on above: New Medication Reque st Start: 06-25-2023 Telephone encounter Bailee Alcantara APRN.CNP Work Phone: Neurology Comment on above: Patient Update (Rece ived insurance denial from Dandre Hernandez. Reason for denying request is not medically necessary. //Reference # [id number]//Placed on Bailee's desk for review. /) Start: 11-10-2022 End: 11-10-2022 Patient encounter procedure Jimmy Benitez MD Work Phone: Neurology Comment on above: Parkinson disease (H CC) (Primary Dx) Start: 10-02-2022 ambulatory Jimmy Benitez MD Work Phone: Neurology Comment on above: New medication Start: 09-29-2022 End: 09-29-[address] Devika Arcos Work Phone: [facility] Start: 07-10-2022 End: 07-10-2022 Patient encounter procedure Jimmy Benitez MD Work Phone: Neurology Comment on above: Parkinson disease (H CC) (Primary Dx) Start: 06-20-2022 End: 06-20-[address] Devika rAcos Work Phone: [facility] Work Phone: Start: 06-20-2022 End: 06-20-[address] eDvika Arcos Work Phone: [facility] Start: 06-13-2022 End: 06-13-[address] Devika Arcos Work Phone: [facility] Work Phone: Start: 06-08-2022 End: 06-08-2022 Patient encounter procedure Bailee Choe APRN.CNC SERVICE ENGINEER Work Phone: Neurology Comment on above: Tremor (Primary Dx); IBAN (obstructive sleep apnea); Other fatigue; Frequent headaches; Tinnitus, unspecified laterality; Hypertension, unspecified type Start: 05-09-2022 Telephone encounter Jeremias Dempsey MD Work Phone: Neurology Comment on above: Patient Update; Amirah ent Question Start: 05-06-2022 Refill Bailee sabillon APRN.CNC SERVICE ENGINEER Work Phone: Neurology Comment on above: Refill Request Start: 04-10-2022 Telephone encounter Bailee Alcantara APRN.CNC SERVICE ENGINEER Work Phone: Neurology Comment on above: Refill Request Start: 03-04-2022 Refill Bailee sabillon APRN.CNC SERVICE ENGINEER Work Phone: Neurology Comment on above: Refill Request Start: 02-22-2022 Telephone encounter Jeremias Dempsey MD Work Phone: Neurology Comment on above: Patient Update Start: 12-29-2021 End: 12-29-2021 Patient encounter procedure Bailee Choe APRN.CNC SERVICE ENGINEER Work Phone: Neurology Comment on above: Tremor (Primary Dx); Tinnitus, bilateral; Hypertension, unspecified type; Obstructive sleep apnea; Other fatigue; Frequent headaches Start: 12-29-2021 Telephone encounter Bailee Alcantara APRN.CNC SERVICE ENGINEER Work Phone: Neurology Comment on above: Patient Update Start: 11-21-2021 Refill Bailee sabillon APRN.CNC SERVICE ENGINEER Work Phone: Neurology Comment on above: Refill Request Start: 10-18-2021 Non-patient / Non-visit Dr. Carol Arcos Work Phone: [facility] Start: 10-18-2021 End: 10-18-[address] Devika Arcos Work Phone: [facility] Start: 10-04-2021 Refill Bailee sabillon APRN.CNC SERVICE ENGINEER Work Phone: Neurology Comment on above: Refill Request; Refi ll Request Start: 09-20-2021 End: 09-20-[address] Devika Arcos Work Phone: [facility] Start: 09-15-2021 End: 09-15-2021 Patient encounter procedure Virginia Renteria PA-C Work Phone: [facility] Comment on above: Viral syndrome (Prim akila Dx); Acute nonintractable headache, unspecified headache type; Nausea; Fatigue, unspecified type Start: 09-08-2021 End: 09-08-2021 Patient encounter procedure Bailee Choe APRN.CNC SERVICE ENGINEER Work Phone: Neurology Comment on above: Parkinson disease (H CC) (Primary Dx) Start: 09-08-2021 End: 09-08-[address] Devika Arcos Work Phone: [facility] Start: 08-06-2021 Refill Jeremias lezama MD Work Phone: Neurology Comment on above: Refill Request; Refi ll Request Start: 07-08-2021 End: 07-08-2021 Patient encounter procedure Jeremias Dempsey MD Work Phone: Neurology Comment on above: Parkinson disease (H CC) (Primary Dx) Start: 05-10-2021 End: 05-10-2021 Patient encounter procedure [facility] Procedures Date Procedure Procedure Detail [...] Work Phone: Comment on above: Test Ordered: [id number] Apolipoprotein BApo lipoprotein B 91 [H ] mg/dL Reference Range: <90 Desirable < 90 Borderline High 90 - 99 High 100 - 130 Very High >130 ASCVD RISK THERAPEUTIC TARGET CATEGORY APO B (mg/dL) Very High Risk <80 (if extreme risk <70) High Risk <90 Moderate Risk <90Performed at: [employer] [id number] Director: Margarito Sanders MD, Phone: [phone] at: [employer] [address] [id number] Director: Yg Perrin PhD, Phone: [phone] Test Ordered: [id number] Magnesium, RBCTest(s) [id number]-[id number], RBCwas developed and its performance characteristicsdetermined by [employer]. It has not been cleared or approvedby the Food and Drug Administration.Magnesium, RBC 6.9 mg/dL BN Reference Range: 3.7-7.0Performed at: [address] [id number] Director: Margarito Sanders MD, Phone: [phone] at: [facility] [place], [place] [id number] Director: Yg Perrin PhD, Phone: [phone] Start: 10-08-2024 Urnls dip stick/tablet reagent auto microscopy Dr. Devika Arcos MD Work Phone: Start: 07-22-[address] Devika Arcos MD Work Phone: Start: 07-22-[address] Devika Arcos MD Work Phone: Comment on above: Test Ordered: [id number] Dihydrotestosterone Dihydrotestosterone 8.5 [L ] ng/dL ES Reference Range: .This test was developed and its performance characteristicsdetermined by [employer]. It has not been cleared or approvedby the Food and Drug Administration.Reference Range:Adult Male: 30 - 85Performed at: [facility] [address] [place], [place] [id number] Director: Agapito Delgadillo MD, Phone: [phone] at: [address] [id number] Director: Yg Perrin PhD, Phone: [phone] Start: 07-22-2024 Assay of prostate specific antigen [...] Work Phone: Comment on above: Performed at: [place] [id number] Director: Yg Perrin PhD, Phone: [phone] Start: 07-22-[address] Devika [...] of quantitation is 0.1ng/mLThyroglobulin measured by [facility] [employer] Start: 07-22-[address] Devika Arcos MD Work Phone: Start: 07-22-[address] Bertin Arcos MD Work Phone: Comment on above: Thyroglobulin Antibody measured by [employer] TechnologiesMethodologyIt should be noted that the presence of thyroglobulinantibodies may not be pathogenic nor diagnostic, especiallyat very low levels. The assay infantry weapons officer has found thatfour percent of individuals without [...] RSV Vaccine (1 - 1-dose 75+ series) [facility] Start: 12-19-2024 End: 12-19-2024 Patient encounter procedure 12/19/2024 1:00 PM EDT Office Visit Neurology [address] [id number] Jeremias Dempsey Jr., MD [address] [place] [address] follow up Neurology Comment on above: follow up Start: 11-24-2024 Influenza vaccination [facility] Start: 10-27-2024 [facility] Start: 10-20-2024 End: 10-20-2024 Patient encounter procedure [facility] Comment on above: establish care Start: 10-08-2024 Procedure [facility] Start: 08-08-2024 End: 08-08-2024 Patient encounter procedure Neurology Comment on above: Parkinsons Disease Parkinsons, IBAN on p ap (bringing to appointment), Headache-LORI 02/18/24 trial Sinemet Start: 08-08-2024 End: 11-07-2024 CBC W Auto Differential panel - Blood COMPLETE BLOOD COUNT AND DIFFERENTIAL Lab Routine Shortness of breath Expected: 08/08/2024, Expires: 11/07/2024 [facility] Comment on above: Expected: 08/08/2024, Expires: Start: 08-08-2024 End: 11-07-2024 Comprehensive metabolic 2000 panel - Serum or Plasma COMPREHENSIVE METABOLIC PANEL Lab Routine Shortness of breath Expected: 08/08/2024, Expires: 11/07/2024 [facility] Comment on above: Expected: 08/08/2024, Expires: Start: 08-08-2024 End: 11-07-2024 Ferritin [Mass/volume] in Serum or Plasma FERRITIN Lab Routine RLS (restless legs syndrome) Expected: 08/08/2024, Expires: 11/07/2024 [facility] Work Phone: Comment on above: Expected: 08/08/2024, Expires: Start: 08-08-2024 End: 11-07-2024 [employer] binding capacity panel - Serum or Plasma IRON AND TIBC Lab Routine RLS (restless legs syndrome) Expected: 08/08/2024, Expires: 11/07/2024 [facility] Comment on above: Expected: 08/08/2024, Expires: Start: 08-08-2024 End: 11-07-2024 Thyrotropin [Units/volume] in Serum or Plasma THYROID STIMULATING HORMONE Lab Routine Diaphoresis Temperature intolerance Expected: 08/08/2024, Expires: 11/07/2024 [facility] Comment on above: Expected: 08/08/2024, Expires: Start: 08-08-2024 End: 11-07-2024 Thyroxine (T4) free [Mass/volume] in Serum or Plasma T4 FREE/FREE THYROXINE Lab Routine Diaphoresis Temperature intolerance Expected: 08/08/2024, Expires: 11/07/2024 [facility] Comment on above: Expected: 08/08/2024, Expires: Start: 05-16-2024 DIABETES SCREEN DIABETES SCREEN [facility] Start: 05-16-2024 Diabetes Screening Diabetes Screening [facility] Start: 05-05-2024 End: 05-05-2024 Patient encounter procedure 05/05/2024 2:20 PM EST Office Visit Neurology [address], [place] [id number] Jeremias Dempsey Jr., MD [address] [place], [place] [id number] 2 month follow up Neurology Comment on above: 2 month follow up Start: 11-25-2023 Covid-19 Vaccine () Covid-19 Vaccine () [facility] Start: 11-25-2023 Influenza vaccination [facility] Start: 11-11-2023 BP CONTROLLED (<130/80) BP CONTROLLED (<130/80) [facility] Start: 10-28-2023 Urine microalbumin profile [facility] Start: 03-26-2023 Behavioral Health Screening Behavioral Health Screening [facility] Start: 03-26-2023 Depression Assessment Depression Assessment [facility] Start: 11-24-2022 Covid-19 Vaccine ( season) Covid-19 Vaccine ( season) [facility] Start: 11-24-2022 Influenza vaccination [facility] Start: 03-26-2022 DEPRESSION ASSESSMENT DEPRESSION ASSESSMENT [facility] Start: 11-24-2021 Influenza vaccination [facility] Start: 03-26-2021 DEPRESSION ASSESSMENT DEPRESSION ASSESSMENT [facility] Start: 2020 RSV Vaccine (1 - 1-dose 60+ series) RSV Vaccine (1 - 1-dose 60+ series) [facility] Start: 09-05-2017 End: 09-05-2017 Appointment Appointment [facility] Work Phone: Start: 09-07-2016 End: 09-07-2016 Appointment Appointment [facility] Work Phone: Start: 09-07-2016 End: 09-07-2016 *Hepatic Function Panel *Hepatic Function Panel [facility] Work Phone: Start: 09-07-2016 End: 09-07-2016 Echocardiography Echocardiogram (complete) [facility] Work Phone: Start: 09-07-2016 End: 09-07-2016 Electrocardiogram, complete EKG (In office) [facility] Work Phone: Start: 09-07-2016 End: 09-07-2016 Follow Up Appt 1 year Follow Up Appt 1 year [facility] Work Phone: Start: 09-07-2016 End: 09-07-2016 Lipid panel [AGGREGATE] *Lipid Profile CC PCP [facility] Work Phone: Start: 09-07-2016 End: 09-07-2016 Nuclear stress test -exercise Nuclear stress test -exercise [facility] Work Phone: Start: 09-07-2016 End: 09-07-2016 PFM PFM [facility] Work Phone: Start: 2015 PROSTATE CANCER SCREENING DISCUSSION PROSTATE CANCER SCREENING DISCUSSION [facility] Start: 2015 Prostate specific antigen measurement Prostate Cancer Screening Discussion [facility] Start: 2010 Pneumococcal Vaccine: 50+ (1 of 1 - PCV) Pneumococcal Vaccine: 50+ (1 of 1 - PCV) [facility] Start: 2010 SHINGRIX VACCINE (1 of 2) SHINGRIX VACCINE (1 of 2) [facility] Start: 2005 COLOGUARD (FIT-DNA) COLOGUARD (FIT-DNA) [facility] Start: 2005 Colonoscopy COLONOSCOPY [facility] Start: 2005 COLORECTAL CANCER SCREENING COLORECTAL CANCER SCREENING [facility] Start: [address] COLONOGRAPHY [facility] Start: 2005 FECAL OCCULT BLOOD FECAL OCCULT BLOOD [facility] Start: 2005 Prostate specific antigen measurement Prostate Cancer Screening Discussion [facility] Start: 2005 Screening for malignant neoplasm of colon [facility] Start: 2005 SIGMOIDOSCOPY SIGMOIDOSCOPY [facility] Start: 1995 Lipid panel Lipid Screening [facility] Start: 1995 LIPID SCREEN LIPID SCREEN [facility] Start: 1978 ANNUAL PCP TEAM CHRONIC DISEASE VISIT ANNUAL PCP TEAM CHRONIC DISEASE VISIT [facility] Start: 1978 Anxiety Screening Anxiety Screening [facility] Start: 1978 BP CONTROLLED (<130/80) BP CONTROLLED (<130/80) [facility] Start: 1978 Depression Screening Depression Screening [facility] Start: 1978 HEPATITIS C SCREENING HEPATITIS C SCREENING [facility] Start: 1978 Hepatitis C screening Hepatitis C Screening [facility] Start: 1978 HIV SCREENING HIV SCREENING [facility] Start: 1978 HIV screening HIV Screening [facility] Start: 1972 Adult depression screening assessment DEPRESSION SCREENING [facility] Start: 1965 COVID-19 VACCINE (#1) COVID-19 VACCINE (#1) [facility] Start: 1965 COVID-19 VACCINE (1) COVID-19 VACCINE (1) [facility] Start: 1960 COVID-19 VACCINE (#1) COVID-19 VACCINE (#1) [facility] CBC W Auto Different ial panel - Blood [facility] Influenza virus A an d B RNA and SARS-CoV-2 (COVID-19) N gene panel - Respiratory specimen by ADY with probe detection COVID WITH FLUA+B, ROUTINE Microbiology Routine Acute nonintractable headache, unspecified headache type Nausea Fatigue, unspecified type Ordered: 09/15/2021 [facility] Work Phone: Comment on above: Ordered: 09/15/2021 Patient Education Thrombocytopenia [facility] Work Phone: Radionuclide imaging of perfusion of myocardium under exercise stress [facility] Work Phone: [facility] Work Phone: [facility] Immunizations Immunization Date Immunization Notes Care Provider Fa cili 12-21-2018 Influenza, injectabl e, Madin Cathy Canine Kidney, preservative free, quadrivalent Jeremias Dempsey Jr., MD Work Phone: [facility] 12-21-2018 influenza virus vaccine, unspecified formulation Bailee Choe APRN.CNP Work Phone: [facility] 10-27-2013 tetanus toxoid, redu gena diphtheria toxoid, and acellular pertussis vaccine, adsorbed Jeremias Dempsey Jr., MD Work Phone: [facility] Payers Date Payer Category Payer Self-pay [id number] 2023 Self-pay [id number] 2023 [employer] Blue [employer] DANDRE MONIQUE EZEKIEL O SUKUMAR [id number] 2023 Unknown [id number] 2016 Unknown DANDRE JUAREZ CARD PPO OOS [id number] 2016-Present [phone] [address] [place] [address] PPO [id number] 2016 Unknown [id number] 2007 Unknown [id number] Unknown [id number] Unknown [id number] Unknown [id number] Unknown [id number] Unknown [id number] Unknown [id number] Social History Date Type Detail Facility Start: 02-04-2019 End: 03-07-2022 Tobacco smoking status NHIS Unknown if ever smoked [facility] Start: 07-10-2018 None [facility] Start: 07-10-2018 Spouse/ Signif icant Other [facility] Start: 07-12-2018 Non-smoker [facility] Start: 1960 Sex Assigned At Male [facility] Start: 10-20-2018 End: 10-27-2024 Tobacco smoking status NHIS Never smoked tobacco [facility] Start: 10-20-2018 End: 12-29-2021 Tobacco use and exposure Smokeless tobacco non-user [facility] Start: 07-08-2021 End: 08-08-2024 Alcohol intake Current drinker of alcohol (finding) [facility] Start: 2021 History SDOH Alcohol Comment Seldom [facility] Start: 1960 Sex Assigned At Not on file [facility] Start: 06-28-2021 End: 12-29-2021 Exposure to SARS-CoV-2 (event) Not sure [facility] Start: 07-10-2022 End: 11-10-2022 History of Social function [facility] Start: 07-10-2022 End: 11-10-2022 Tobacco use panel [facility] National Score (1-100), lower number is lower risk 66 [facility] Mental Status Date Assessment Result Facility 10-27-2024 Cognitive function Level Of Cons ciousness Awake;Alert;Appropriate;Follow s Commands [facility] Work Phone: Clinical Notes 07-15-2018 to 10-27-2024 Note Date & Type Note Facility 10-27-2024 Discharge summary [facility] 10-27-2024 Discharge summary Note Date/Time October 27, 2024 8:47pm [facility] Medical Records Department [address] [place] [address] Emergency Department Summary 10/27/24 MR#: [id number] Acct: [id number] Name: MELANIE NAVARRO Rep #:[id number] : 1960 64 From: Kvng Echeverria MD [...] does not know why they are low. [facility] Medical History Parkinsons disease Melanoma in situ of back Essential hypertension Hypertension IBAN (obstructive sleep apnea) Hyperlipidemia Atherosclerotic heart disease of [place] coronary artery without angina pectoris Home Medications [...] (Auto) 68.3 Lymph % (Auto) 15.4 L [place] % (Auto) 11.7 H Eos % (Auto) [...] Calcium 9.4 Management Discussion w/another healthcare provider: [employer] Discharge Plan Triage Chief Complaint: Abn Labs [...] - As soon as possible Print Language: Bulgarian Disposition Disposition: Home, Self Care What to do if you have Problems For any increased pain, shortness of breath, bleeding, nausea or vomiting, chestpain, or any unexpected problems, contact your Primary Care Provider. Call [facility] ([phone]) or report to the closest Emergency Room. Call 911 if necessary. 10/27/242046 <Electronically signed by Kvng Echeverria MD> Cosigner Signature (if applicable): CC: Dr. Guillermo Acosta MD; Dr. Eliz Cristobal MD ~ Signed [facility] Work Phone: 1(308) 402-718607-25-2025 Telephone encounter Note* Telephone Encounter - Jorge [...] Dutton LPN October 17, 2024 7:45 AM [facility]07-25-2025 Miscellaneous Notes* Telephone Encounter - Jorge Dutton [...] 17, 2024 7:45 AM documented in this encounterTr[facility]06-[facility]-2025 Telephone encounter Note * Telephone Encounter - Jorge Dutton LPN - 08/27/2024 1:21 PM EDT Received sleep study results from Dr. Miles. Jorge Dutton LPN [facility]06-04-2025 Miscellaneous Notes* Telephone Encounter - Jorge Dutton LPN - 08/27/2024 1:21 PM EDT Received sleep study results from Dr. Miles. Jorge Dutton LPN * Telephone Encounter - Rosi Mcnair OCCA - 08/26/2024 10:37 AM EDT Faxed request for sleep study results to Dr. Page's office at [phone]. Please watch for fax. LEV Galvan * [...] from 10 years ago to send to [facility] with order for new Cpap device. All other documents printed and in holding folder at nurses desk to be faxed. Please try to call on next business day. Thank you. LEV Galvan documented in this encounterTr[facility]06-03-2025 Telephone encounter Note * Telephone Encounter - Rosi Mcnair OCCA - 08/26/2024 10:37 AM EDT Faxed request for sleep study results to Dr. Page's office at [phone]. Please watch for fax. LEV Galvan [facility]05-19-2025 Telephone encounter Note* Telephone Encounter - Rosi Mcnair OCCA - 08/11/2024 9:53 AM EDT TC to Dr. Page's office with no answer. Unable to leave at this time. Please try again later.LEV Galvan [facility]05-16-2025 Telephone encounter Note* Telephone Encounter - Rosi Mcnair OCCA - 08/08/2024 4:06 PM EDT TC to Dr. Page's office, no answer as office is currently closed. Need to get copy of patients sleep study from 10 years ago to send to [facility] with order for new Cpap device. All other documents printed and in holding folder at nurses desk to be faxed. Please try to call on next business day. Thank you. LEV Galvan [facility]05-16-2025 NoteHNO ID: [id number] Author: JEREMIAS DEMPSEY JR, MD Service: ? [...] Date Value 05/16/2021 39 (more content not included)...[facility]05-16-2025 History of Present illness Narrative* Jeremias [...] try an Auto PAP. Rx sent to [facility]. Discussed with patient: the physiology of OSAS, [...] new PCP. Patient advised of signs of SC or stroke and advised to go to [...] which included preparing to see the patient, [id number] patient care, completing clinical documentation, obtaining and/or reviewing separately obtained history, performing a medically appropriate examination, counseling and educating the pa tient/family/caregiver, ordering medications, tests, or procedures, and communicating results to the patient/family/caregiver. documented in this encounterTrinity [facility]05-15-2025 Telephone encounter Note * Telephone Encounter - Rosi Mcnair OCCA - 08/07/2024 5:17 PM EDT Below noted. LEV Galvan [facility]05-15-2025 Miscellaneous Notes* Telephone Encounter - Rosi Mcnair [...] appt. Jorge Dutton LPN documented in this encounterTrinity Health [facility]05-15-2025 Telephone encounter Note * Telephone Encounter - Maranda Flores - 08/07/2024 4:07 PM EDT Patient returned call Could not remember where he gets supplies but will find out and will bring cpap with him to apt [facility] Work Phone: [phone]) 891-706305-15-2025 Telephone encounter Note* Telephone Encounter - Jorge Dutton LPN - 08/07/2024 3:09 PM EDT TC to pt. LM to call office. Need to know where Pt gets his CPAP supplies and to bring his machine for his appt. Jorge Dutton LPN [facility]12-26-2024 Telephone encounter Note* Telephone Encounter - Richie [...] Vu LPN March 20, 2024 3:51 PM [facility]12-26-2024 Miscellaneous Notes* Telephone Encounter - Richie Vu [...] 20, 2024 3:51 PM documented in this encounterTrinity [facility]12-26-2024 Telephone encounter Note * Telephone Encounter - [...] Vu LPN March 20, 2024 8:05 AM [facility]12-26-2024 Miscellaneous Notes* Telephone Encounter - Richie Vu [...] 20, 2024 8:05 AM documented in this encounterTrinity [facility]11-27-2024 Telephone encounter Note * Telephone Encounter - Richie Vu LPN - 02/20/2024 9:15 AM EST Called patient, advised patient of message below. Patient verbalized understanding. Patient states he will do that. Richie Vu LPN February 20, 2024 9:16 AM [facility]11-27-2024 Miscellaneous Notes* Telephone Encounter - Richie Vu [...] 2014. Christie Hare RN documented in this encounterTrinity Health [facility]11-26-2024 Telephone encounter Note * Telephone Encounter - [...] with machine in 2014. Christie Hare, RN [facility]11-25-2024 NoteHNO ID: [id number] Author: JEREMIAS DEMPSEY JR, MD Service: ? [...] compliance with device. Note, lab work from [facility] reviewed (B12, TSH, TIBC/iron/ferritin, Vit D, [...] and is nega (more content not included)... [facility]11-25-2024 History of Present illness Narrative* Jeremias [...] compliance with device. Note, lab work from [facility] reviewed (B12, TSH, TIBC/iron/ferritin, Vit D, [...] which included preparing to see the patient, [id number] patient care, completing clinical documentation, obtaining and/or reviewing separately obtained history, performing a medically appropriate examination, counseling and educating the pa tient/family/caregiver, ordering medications, tests, or procedures, communicating with other HCPs (not separately reported), and communicating results to the patient/family/caregiver. documented in this encounterTrinity [facility]11-25-2024 Nurse Note* Richie Vu LPN - 02/18/2024 3:01 PM EST C/o parkinson progressing. Would like medication to relieve tremor today. Tremor keeps patient fromsleeping. Richie Vu LPN February 18, 2024 3:05 PM [facility]11-25-2024 Nurse Note* Richie Vu LPN - 02/18/2024 3:01 PM EST C/o parkinson progressing. Would like medication to relieve tremor today. Tremor keeps patient fromsleeping. Richie Vu LPN February 18, 2024 3:05 PM documented in this encounterTrinity [facility]04-01-2024 Miscellaneous Notes* Telephone Encounter - Patito Celis OCCA - 06/25/2023 11:33 AM EDT Received insurance denial from [employer]. Reason for denying request is not medically necessary. Reference # [id number] Placed on [employer]'s desk for review. documented in this encounterTrinity Health [facility] Center08-18-2023 Instructions* Patient Instructions* Jimmy Benitez MD - 11/10/2022 3:49 PM EDT Lets continue things the same today. Try to stay physically active. documented in this encounterTrinity Health [facility] Center08-18-2023 History of Present illness Narrative* iJmmy Benitez MD - 11/10/2022 3:18 PM EDT [...] Discussed with Patient: n/a Jimmy Benitez MD [facility] Neurology documented in this encounterTrinity Health [facility]04-17-2023 Instructions* Patient Instructions* Jimmy Benitez MD - [...] (selegiline, artane, amantadine, carbidopa/levodopa) documented in this encounterTrinity Health [facility] Center04-17-2023 History of Present illness Narrative* Jimmy Benitez [...] exhausted. 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 Sometimes [...] requires prior auth- will pay cruz with [employer]. (Patient not taking: No sig reported) 1 [...] Never Never a heavy drinker Works at [employer] in contractor sales Son lives with them [...] regarding the above issues. Jimmy Benitez MD [facility] Neurology documented in this encounterTrinity Health [facility]03-16-2023 History of Present illness Narrative* Bailee Choe, ADZING AND BORING MACHINE OPERATOR.CNC SERVICE ENGINEER - 06/08/2022 4:30 PM EDT Images from the original note were not included. [facility] Neurologic [place] Follow-up Visit Follow-up note June 08, 2022 [...] addition, will obtain recent labs completed at [facility] to determine if additional blood work [...] requires prior auth- will pay cruz with [employer] coupon. benzonatate (TESSALON PERLES) 100 mg capsule [...] DATE OF EXAM: May 24 2021 8:36AM [facility] 0295 - MRI BRAIN WO/W IVCON / [...] acute findings. No abnormal enhancement. Chronic changes. Oil Heaterman: MARCY Transcribe Date/Time: May 24 2021 8:57A [...] compliance with device. Note, lab work from [facility] reviewed (B12, TSH, TIBC/iron/ferritin, Vit D, [...] TO [facility]UROLOG[facility] Bailee Choe APRN.CNC SERVICE ENGINEER I spent a total of 40 minutes on the date of the service which included preparing to see the patient, [id number] patient care, completing clinical documentation, obtaining and/or reviewing separately obtained history, performing a medically appropriate examination, counseling and educating the pat ient/family/caregiver, and ordering medications, tests, or procedures. documented in this encounterTrinity Health [facility] Center02-21-2023 Miscellaneous Notes* Telephone Encounter - Natacha Burch MA - 05/16/2022 10:29 AM EST X2 attempt to reach patient. Unable to reach. Left detailed message on identified VM with instructions to take SD card to Dr. Page's office. Will close TE at this time. Natacha Burch MA * Telephone Encounter - Natacha Burch MA - 05/10/2022 11:54 AM EST TC to Dr. Page's office: last download was 02/20/23. Advised for [...] is feeling tired. Please review and advise, Christie Hare RN documented in this encounterTrinity Health [facility] Center02-13-2023 Miscellaneous Notes* Telephone Encounter - Julieth Bhakta [...] review. Julieth Bhakta CMA documented in this encounterTrinity Health [facility] Center01-16-2023 Miscellaneous Notes* Telephone Encounter - [place] [...] addition, will obtain recent labs completed at [facility] to determine if additional blood work [...] on 12/29/21 [facility] Bailee Choe APRN.CNC SERVICE ENGINEER * Telephone Encounter - Candice Dc RN - 04/10/2022 1:34 PM EST Patient calling and requesting a refill of his ropinirole ER 6mg. He reports he has been using a combination of 2 mg and 4 mg to equal 6 mg, and is requesting a refill of 6 mg strength, if provider agreeable. [facility] in [place] please. No call back needed to pt if provider able to process request. Thank you. documented in this encounterTrinity Health [facility] Center12-06-2022 Miscellaneous Notes* Telephone Encounter - ALEKSANDR Galvan - 02/28/2022 1:43 PM EST Compliance report received and placed on providers desk for review on return to office Sunday, 03/06. ALEKSANDR Galvan * Telephone Encounter - ALEKSANDR Galvan - 02/28/2022 11:13 AM EST TC to Dr. Page's office who is sending the compliance report via fax to the [place] office. [employer] for fax. ALEKSANDR Galvan * Telephone Encounter - Aleah Blank LPN - 02/23/2022 11:16 AM EST Attempted to reach Dr Page office [phone] and rings busy every time. Faxed request to [facility]/ [place] office at [phone] to request the PAP Compliance report be forwarded to Dr. Dempsey's office in [place]. Aleah Blank LPN * Telephone Encounter - Christie Hare RN - 02/22/2022 3:55 PM EST Patient calls and states that Dr. Bahena's office has received patient's information from CPAP. Patient was told that Dr. Dempsey's office needs to contact Dr. Bahena's office for information. Christie Hare RN documented in this encounterTrinity Health [facility]11-08-2022 Miscellaneous Notes* Telephone Encounter - ALEKSANDR Galvan [...] EDT Receive lab results by fax from [facility] as requested. Sent the records to scanning for the patient's chart. * Telephone Encounter - Lucy Salmeron LPN - 12/30/2021 8:[address] Page's office returned call and patient uses Dr. Page's office as DME. Last time a compliance [...] answer, left message. Fax also sent to [facility] Medical Records requesting patient's recent blood work from April. Will watch for fax. ALEKSANDR Galvan documented in this encounterTr[facility] History of Present illness Narrative* Bailee Choe APRN.CNC SERVICE ENGINEER - 12/29/2021 4:30 PM EDT Images from the original note were not included. t [facility] Neurologic [place] Follow-up Visit Follow-up note December 29, 2021 [...] acute findings. No abnormal enhancement. Chronic changes. Oil Heaterman: [facility] Transcribe Date/Time: May 24 2021 8:57A Dictated [...] addition, will obtain recent labs completed at [facility] to determine if additional blood work [...] which included preparing to see the patient, aawp-hi-rcfo patient care, completing clinical documentation, obtaining and/or reviewing separately obtained history, performing a medically appropriate examination, counseling and educating the pat ient/family/caregiver, and ordering medications, tests, or procedures. Addendum 01/02/22: Lab work received from [facility]. Recent B12 725, TSH 1.16, free testosterone low, TIBC/iron/ferritin normal, Vitamin D normal, Free T4 normal, cortisol normal, A1C 5.3 -completed on 12/30/21. No additional blood work recommended at this time. Will await PAP download. documented in this encounterTr[facility]08-29-2022 Miscellaneous Notes* Telephone Encounter - Julieth Bhakta [...] review. Julieth Bhakta CMA documented in this encounterTr[facility]06-23-2022 Instructions* Patient Instructions* Virginia Renteria PA-C - [...] for concern. INSTRUCTIONS: 1. You may use ldwx-krg-gmvtjet pain medication such as acetaminophen, ibuprofen, or [...] your arms or legs. documented in this encounterTr[facility]06-23-2022 History of Present illness Narrative* Virginia Renteria PA-C - 09/15/2021 11:26 AM EDT Subjective Melanie Navarro is a 61 year old male with a past medical history of CVA, Parkinson's disease, [place], hypertension, and thrombocytopenia who presents to [facility] today for evaluation of headache, fatigue, sweats, [...] d/t Parkinson's) present. Coordination: Coordination is intact. Huzzsy-Uauh-Djjwok Test normal. Gait: Gait is intact. Comments: [...] which included preparing to see the patient, bcuk-fp-ntcg patient care, completing clinical documentation, performing a medically appropriate examination, counseling and educating the patient/family/caregiver and ordering medications, tests, or procedures. documented in this encounterTr[facility]06-16-2022 History of Present illness Narrative* Bailee Choe APRN.CNC SERVICE ENGINEER - 09/08/2021 2:30 PM EDT Images from the original note were not included. [facility] Neu[facility] [place] Follow-up Visit Follow-up note September 08, 2021 [...] RELIEF) 50 mcg/actuation nasal spray Use 1 [place] in each nostril once daily. (Patient not [...] PO DAILY June 28, 2018 Active 06-28-2018 [facility] ([id number]) (Patient not taking: Reported on 07/08/2021) No [...] DATE OF EXAM: May 24 2021 8:36AM [facility] 0295 - MRI BRAIN WO/W IVCON / [...] acute findings. No abnormal enhancement. Chronic changes. Oil Heaterman: MARCY Transcribe Date/Time: May 24 2021 8:57A [...] which included preparing to see the patient, wzjg-nr-ulaf patient care, completing clinical documentation, obtaining and/or reviewing separately obtained history, performing a medically appropriate examination, counseling and educating the pat ient/family/caregiver and ordering medications, tests, or procedures. documented in this encounterTrinity [facility]04-15-2022 History of Present illness Narrative* Jeremias Dempsey [...] lumbar pain. Unchanged from prior eval at [facility] and pt not wanting further workup. However, [...] sleep well but no RBD symptoms. States [facility] recommending microdiscectomy. Pt opting for therapy. IBAN [...] RELIEF) 50 mcg/actuation nasal spray Use 1 [place] in each nostril once daily. carvedilol (COREG) 25 mg tablet Take 25 mg by mouth twice daily. losartan-hydrochlorothiazide (HYZAAR) 100-25 mg per tablet hydroCHLOROthiazide / Losartan Losartan/Hydrochlorothiazide [Losartan-Hctz 100-25 Mg Tab] 1 TAB PO DAILY June 28, 2018 Active 06-28-2018 [facility] ([id number]) HISTORIES SOCIAL HISTORY Social History Tobacco Use [...] which included preparing to see the patient, mrcg-gp-sibo patient care, completing clinical documentation, obtaining and/or reviewing separately obtained history, performing a medically appropriate examination, counseling and educating the pat ient/family/caregiver, ordering medications, tests, or procedures, independently interpreting results (not separately reported) and communicating results to the patient/family/caregiver. documented in this encounterTr[facility]11-12-2019 Progress note Author Eliz Cristobal [facility] February 04, 2019 11:09am Note Date/Time February 04, 2019 11:09am [facility] [place] [address] OFFICE VISIT Date of Service: 02/04/19 1105 MR#: [id number] Acct: [id number] Name: MELANIE NAVARRO Rep #: [id number] [...] Lymph % (Auto) 14.6 L (19-41) % [place] % (Auto) 11.3 H (0-10) % Eos [...] impression and plan discussed Eliz Cristobal MD Bridge Painter Helper, [facility] Divisions of Medical Oncology & Hematology Department of Internal Medicine [place] [address] This note was generated using a voice recognition system software. Although itwas reviewed by the author prior to finalization, it may still contain incorrectwords, spelling, and punctuation that were not noted when reviewing prior to saving. If a clinically significant typo or inaccurately typed phrase is noted, please notify the author. Primary Care Provider: Devika Arcos MD Referring Provider: Eliz Cristobal MD 02/04/19 0060 <Electronically signed by Eliz caputo MD> Date _ Eliz Cristobal MD Cosigner Signature: Date (if applicable) CC: Devika Arcos MD ~ [facility] Work Phone: 1(101) 589-959810-08-2019 Progress note Author Eliz Cristobal [facility] December 31, 2018 10:34am Note Date/Time December 31, 2018 10 :02am [facility] [place] [address] OFFICE VISIT Date of Service: 12/31/18 1000 MR#: [id number] Acct: [id number] Name: MELANIE NAVARRO Rep #: [id number] [...] impression and plan discussed Eliz Cristobal MD [employer], [facility] Divisions of Medical Oncology & Hematology Department of Internal Medicine [facility] [place] [address] This note was generated using a voice [...] (if applicable) CC: Devika Arcos MD ~ [facility] Work Phone: 1(117) 696-474405-20-2019 Progress note Author Eliz Cristobal [facility] August 12, 2018 2:46pm Note Date/Time August 12, 2018 2:24p [place] [address] OFFICE VISIT Date of Service: 08/12/18 1422 MR#: [id number] Acct: [id number] Name: MELANIE NAVARRO Rep #: [id number] [...] impression and plan discussed Eliz Cristobal MD Bridge Pain[employer], [facility] Divisions of Medical Oncology & Hematology Department of Internal Medicine [place] [address] This note was generated using a voice recognition system software. It may contain incorrect words, spelling, and punctuation that were not noted when reviewing the office note prior to saving. Primary Care Provider: Devika Arcos MD Referring Provider: Eliz Cristobal MD 08/12/181445 <Electronically signed by Eliz caputo MD> Date _ Eliz Cristobal MD Cosigner Signature: Date (if applicable) CC: Devika Arcos MD ~ [facility] Work Phone: 1(669) 266-412704-22-2019 Progress note Author Eliz Cristobal [facility] July 15, 2018 3:20pm Note Date/Time July 15, 2018 2:4 8pm [facility] [place] [address] OFFICE VISIT Date of Service: 07/15/18 1446 MR#: [id number] Acct: [id number] Name: MELANIE NAVARRO Maru Rep #: [id number] [...] MD Referring Provider: Eliz Cristobal MD 07/15/18 5642 <Electronically signed by Eliz caputo MD> Date _ Eliz Cristobal MD Cosigner Signature: Date (if applicable) CC: Devika Arcos MD ~ [facility] Work Phone: Evaluation noteNo assessment information available [facility] Work Phone: Evaluation note* Diagnosis Parkinson disease (HCC)- Primary Paralysis agitans documented in this encounter [facility] note* Diagnosis Viral syndrome- Primary Unspecified viral infection, in conditions classified elsewhere and of unspecified site Acute nonintractable headache, unspecified headache type Nausea Nausea alone Fatigue, unspecified type documented in this encounter [facility] note* Diagnosis Onset Date Resolution Status Chest pain, unspecified acut e Parkinsons disease acute Atherosclerotic heart diseas e of [place] coronary artery without angina pectoris chronic Essential hypertension chron ic Hyperlipidemia chronic IBAN (obstructive sleep apnea) chronic Presence of stent in coronary artery 2009 chronic Thrombocytopenia chronic [facility] Work Phone: Evaluation note* Diagnosis Parkinson disease (HCC) Paralysis agitans documented in this encounter [facility] note* Diagnosis Tremor- Primary Abnormal involuntary movements Tinnitus, bilateral Unspecified tinnitus Hypertension, unspecified type Obstructive sleep apnea Obstructive sleep apnea (adult) (pediatric) Other fatigue Frequent headaches documented in this encounter [facility] note* Diagnosis Tremor Abnormal involuntary movements documented in this encounter [facility] note* Diagnosis IBAN (obstructive sleep apnea) Obstructive sleep apnea (adult) (pediatric) documented in this encounter [facility] note* Diagnosis Tremor- Primary Abnormal involuntary movements IBAN (obstructive sleep apnea) Obstructive sleep apnea (adult) (pediatric) Other fatigue Frequent headaches Tinnitus, unspecified laterality Hypertension, unspecified type documented in this encounter [facility] note* Diagnosis Parkinson disease (HCC)- Primary Paralysis agitans documented in this encounter [facility] note* Diagnosis Parkinson disease (HCC)- Primary Paralysis agitans documented in this encounter [facility] note* Diagnosis Onset Date Resolution Status Thrombocytopenia [facility] Work Phone: Evaluation note* Diagnosis Parkinson disease (HCC)- Primary Paralysis agitans documented in this encounter [facility] note* Diagnosis Parkinson's disease, unspecified whether dyskinesia present, unspecified whether manifestations fluctuate (HCC)- Primary IBAN (obstructive sleep apnea) Obstructive sleep apnea (adult) (pediatric) Frequent headaches Tinnitus, unspecified laterality Hypertension, unspecified type documented in this encounter [facility] note* Diagnosis Parkinson's disease, unspecified whether dyskinesia present, unspecified whether manifestations fluctuate (HCC) documented in this encounter [facility] note* Diagnosis Parkinson's disease, unspecified whether dyskinesia present, unspecified whether manifestations fluctuate (HCC) documented in this encounter [facility] note* Diagnosis Parkinson's disease, unspecified whether dyskinesia present, unspecified whether manifestations fluctuate (HCC)- Primary IBAN (obstructive sleep apnea) Obstructive sleep apnea (adult) (pediatric) RLS (restless legs syndrome) Restless legs syndrome (RLS) Shortness of breath Diaphoresis Generalized hyperhidrosis Temperature intolerance Other general symptoms Hypertension, unspecified type Nonintractable episodic headache, unspecified headache type documented in this encounter [facility] note* Diagnosis Parkinson's disease, unspecified whether dyskinesia present, unspecified whether manifestations fluctuate (HCC) documented in this encounter [facility] for referral (narrative)No reason for referral information availableWGood Samaritan Hospital Work Phone: Family History Relationship Condition Age at Onset Recorded Date/T eunice father Coronary artery disease Unknown Myocardial infarction 42 sister Hypertension Unknown mother Malignant neoplasm of colon Unknown Hypertension Unknown Advance Directives Advance Directive Response Recorded Date/ Time Living Will No July 09, 2018 7:29pm Power of Block Engraver No July 09 7:29pm Advance Directive Response Recorded Date/ Time Do you have a Healthcare Power of Block Engraver? No October 27, 2024 4:17pm Medications Administered [...] ied Parkinsons disease Atherosclerotic heart disease of [place] coronary artery without angina pectoris Essential hypertension Hyperlipidemia IBAN (obstructive sleep apnea) Presence of stent in coronary artery Thrombocytopenia Chief Complaint OVERDUE FOR OV CP, CAD/ASHD CP, CAD/ASHD Reason for Visit Chest pain, unspecif ied Parkinsons disease Atherosclerotic heart disease of [place] coronary artery without angina pectoris Essential hypertension [...] Diagnoses Tremor Procedures CONSULT TO NEUROLOGY OFFICE/OUTPATIENT [facility] 60-74 MINUTES Jimmy Benitez MD [address] [place] [address] Referral ID Status Reason Start Date Expiration Date Visits Requested Visits Authorized [id number] Authorized PCP Requested Referral 06/08/2022 06/08/2023 1 [...] or prosecute any alcohol or drug abuse patient.[facility] CenterIn the event this information is protected by the Federal Confidentiality of Alcohol and Drug Abuse Patient Records regulations: The Federal rules restrict any use of the information to criminally investigate or prosecute any alcohol or drug abuse patient.[facility] CenterIn the event this information is protected by the Federal Confidentiality of Alcohol and Drug Abuse Patient Records regulations: The Federal rules restrict any use of the information to criminally investigate or prosecute any alcohol or drug abuse patient.[facility] CenterIn the event this information is protected by the Federal Confidentiality of Alcohol and Drug Abuse Patient Records regulations: The Federal rules restrict any use of the information to criminally investigate or prosecute any alcohol or drug abuse patient.[facility] CenterIn the event this information is protected by the Federal Confidentiality of Alcohol and Drug Abuse Patient Records regulations: The Federal rules restrict any use of the information to criminally investigate or prosecute any alcohol or drug abuse patient.[facility] CenterIn the event this information is protected by the Federal Confidentiality of Alcohol and Drug Abuse Patient Records regulations: The Federal rules restrict any use of the information to criminally investigate or prosecute any alcohol or drug abuse patient.[facility] CenterIn the event this information is protected by the Federal Confidentiality of Alcohol and Drug Abuse Patient Records regulations: The Federal rules restrict any use of the information to criminally investigate or prosecute any alcohol or drug abuse patient.[facility] CenterIn the event this information is protected by the Federal Confidentiality of Alcohol and Drug Abuse Patient Records regulations: The Federal rules restrict any use of the information to criminally investigate or prosecute any alcohol or drug abuse patient.[facility] CenterIn the event this information is protected by the Federal Confidentiality of Alcohol and Drug Abuse Patient Records regulations: The Federal rules restrict any use of the information to criminally investigate or prosecute any alcohol or drug abuse patient.[facility] CenterIn the event this information is protected by the Federal Confidentiality of Alcohol and Drug Abuse Patient Records regulations: The Federal rules restrict any use of the information to criminally investigate or prosecute any alcohol or drug abuse patient.[facility] CenterIn the event this information is protected by the Federal Confidentiality of Alcohol and Drug Abuse Patient Records regulations: The Federal rules restrict any use of the information to criminally investigate or prosecute any alcohol or drug abuse patient.[facility] CenterIn the event this information is protected by the Federal Confidentiality of Alcohol and Drug Abuse Patient Records regulations: The Federal rules restrict any use of the information to criminally investigate or prosecute any alcohol or drug abuse patient.[facility] CenterIn the event this information is protected by the Federal Confidentiality of Alcohol and Drug Abuse Patient Records regulations: The Federal rules restrict any use of the information to criminally investigate or prosecute any alcohol or drug abuse patient.[facility] CenterIn the event this information is protected by the Federal Confidentiality of Alcohol and Drug Abuse Patient Records regulations: The Federal rules restrict any use of the information to criminally investigate or prosecute any alcohol or drug abuse patient.[facility] CenterIn the event this information is protected by the Federal Confidentiality of Alcohol and Drug Abuse Patient Records regulations: The Federal rules restrict any use of the information to criminally investigate or prosecute any alcohol or drug abuse patient.[facility] the event this information is protected by the Federal Confidentiality of Alcohol and Drug Abuse Patient Records regulations: The Federal rules restrict any use of the information to criminally investigate or prosecute any alcohol or drug abuse patient.[facility] CenterIn the event this information is protected by the Federal Confidentiality of Alcohol and Drug Abuse Patient Records regulations: The Federal rules restrict any use of the information to criminally investigate or prosecute any alcohol or drug abuse patient.[facility] CenterIn the event this information is protected by the Federal Confidentiality of Alcohol and Drug Abuse Patient Records regulations: The Federal rules restrict any use of the information to criminally investigate or prosecute any alcohol or drug abuse patient.[facility] CenterIn the event this information is protected by the Federal Confidentiality of Alcohol and Drug Abuse Patient Records regulations: The Federal rules restrict any use of the information to criminally investigate or prosecute any alcohol or drug abuse patient.[facility] CenterIn the event this information is protected by the Federal Confidentiality of Alcohol and Drug Abuse Patient Records regulations: The Federal rules restrict any use of the information to criminally investigate or prosecute any alcohol or drug abuse patient.[facility] CenterIn the event this information is protected by the Federal Confidentiality of Alcohol and Drug Abuse Patient Records regulations: The Federal rules restrict any use of the information to criminally investigate or prosecute any alcohol or drug abuse patient.[facility] CenterIn the event this information is protected by the Federal Confidentiality of Alcohol and Drug Abuse Patient Records regulations: The Federal rules restrict any use of the information to criminally investigate or prosecute any alcohol or drug abuse patient.[facility] CenterIn the event this information is protected by the Federal Confidentiality of Alcohol and Drug Abuse Patient Records regulations: The Federal rules restrict any use of the information to criminally investigate or prosecute any alcohol or drug abuse patient.[facility] CenterIn the event this information is protected by the Federal Confidentiality of Alcohol and Drug Abuse Patient Records regulations: The Federal rules restrict any use of the information to criminally investigate or prosecute any alcohol or drug abuse patient.[facility] CenterIn the event this information is protected by the Federal Confidentiality of Alcohol and Drug Abuse Patient Records regulations: The Federal rules restrict any use of the information to criminally investigate or prosecute any alcohol or drug abuse patient.[facility] CenterIn the event this information is protected by the Federal Confidentiality of Alcohol and Drug Abuse Patient Records regulations: The Federal rules restrict any use of the information to criminally investigate or prosecute any alcohol or drug abuse patient.[facility] CenterIn the event this information is protected by the Federal Confidentiality of Alcohol and Drug Abuse Patient Records regulations: The Federal rules restrict any use of the information to criminally investigate or prosecute any alcohol or drug abuse patient.[facility] CenterIn the event this information is protected by the Federal Confidentiality of Alcohol and Drug Abuse Patient Records regulations: The Federal rules restrict any use of the information to criminally investigate or prosecute any alcohol or drug abuse patient.[facility] Reason for Visit (unrecogniz ed section and [...] Diagnoses Tremor Procedures CONSULT TO NEUROLOGY OFFICE/OUTPATIENT [facility] 60-74 MINUTES Jimmy Benitez MD [address] [place] [address] [place] [address] Referral ID Status Reason Start Date Expiration Date V isits Requested Visits Authorized [id number] Closed PCP Requested Referral 06/08/2022 06/08/2023 1 1 Reason Comments 4 month follow up Reason Comments Patient Update Received insurance d enial from [employer]. Reason for denying request is not medically necessary. Reference # [id number] on [employer]'s desk for review. Reason Comments Established Patient Parkinson Specialty Diagnoses / Procedures Referred By Eden t [facility] Diagnoses follow up Parkinson Procedures OV Jeremias Dempsey Jr., MD [address] [place] [id number] Neurological [place] [address] [place], [place] [id number] Referral ID Status Reason Start Date Expiration Date Visits Requested Visits Authorized [id number] Incomplete OON/Self Pay Override 11/08/2023 02/15/2025 1 [...] EST PATIENT Jeremias Dempsey Jr., MD [address] [place] [phone] Phone: tel: fax: Neurology [address] [place] [address] Phone: tel: Referral ID Status Reason Start Date Expiration Date Visits Requested Visits Authorized [id number] Incomplete OON/Self Pay Override 05/05/2024 08/13/2025 1 1 Reason Comments Request Outside Medical Records Sleep [facility] Care Teams (unrecognized sec tion and content) Defence Intelligence Analyst Relationship Specialty Start Date End Date Devika Arcos [address] [facility] [address] [place] [address] PCP - General Family Practice 07/19/21 Defence Intelligence Analyst Relationship Specialty Start Date End Date Devika Arcos [address] [facility] [address] [place] [address] PCP - General Family Practice 07/19/21 Defence Intelligence Analyst Relationship Specialty Start Date End Date Devika Arcos [address] [place] [address] PCP - General Family Practice 07/19/21 Defence Intelligence Analyst Relationship Specialty Start Date End Date Devika Arcos Bessy [address] [facility] [address] [place] [address] PCP - General Family Medicine 07/19/21 Defence Intelligence Analyst Relationship Specialty Start Date End Date JosselynDevika [address] [facility] [address] [place] [address] PCP - General Family Medicine 07/19/21 Defence Intelligence Analyst Relationship Specialty Start Date End Date Devika Arcos [address] [facility] [address] [place] [address] PCP - General Family Medicine 07/19/21 Defence Intelligence Analyst Relationship Specialty Start Date End Date Devika Arcos [address] [facility] [address] [place] [address] PCP - General Family Medicine 07/19/21 Defence Intelligence Analyst Relationship Specialty Start Date End Date Devika Arcos [address] [facility] [address] [place] [address] PCP - General Family Medicine 07/19/21 Defence Intelligence Analyst Relationship Specialty Start Date End Date Devika Arcos [address] [facility] [address] [place] [address] PCP - General Family Medicine 07/19/21 Defence Intelligence Analyst Relationship Specialty Start Date End Date Devika Arcso [address] [facility] [address] [place] [address] PCP - General Family Medicine 07/19/21 Defence Intelligence Analyst Relationship Specialty Start Date End Date Devika Arcos [address] [facility] [address] [address] [place] [address] PCP - General Family Medicine 07/19/21 Defence Intelligence Analyst Relationship Specialty Start Date End Date Devika Arcos [address] [place] [address] PCP - General Family Medicine 07/19/21 Defence Intelligence Analyst Relationship Specialty Start Date End Date Devika Arcos [address] [facility] [address] [place] [address] PCP - General Family Medicine 07/19/21 Defence Intelligence Analyst Relationship Specialty Start Date End Date Devika Arcos [address] [facility] [address] [place] [address] PCP - General Family Medicine 07/19/21 Team [...] Primary Care Provider, Attendin g Provider Active Defence Intelligence Analyst Relationship Specialty Start Date End Date Devika Arcos [address] [place] [address] PCP - General Family Medicine 07/19/21 Defence Intelligence Analyst Relationship Specialty Start Date End Date Devika Arcos [address] [place] [address] PCP - General Family Medicine 07/19/21 Defence Intelligence Analyst Relationship Specialty Start Date End Date Devika Arcos [address] [place] [address] PCP - General Family Medicine 07/19/21 Defence Intelligence Analyst Relationship Specialty Start Date End Date Devika Arcos [address] [place] [address] PCP - General Family Medicine 07/19/21 Defence Intelligence Analyst Relationship Specialty Start Date End Date Devika Arcos [address] [place] [address] PCP - General Family Medicine 07/19/21 Defence Intelligence Analyst Relationship Specialty Start Date End Date Devika Arcos [address] [place] [address] PCP - General Family Medicine 07/19/21 Defence Intelligence Analyst Relationship Specialty Start Date End Date Devika Arcos [address] [place] [address] PCP - General Family Medicine 07/19/21 Defence Intelligence Analyst Relationship Specialty Start Date End Date Devika Arcos [address] [place] [address] PCP - General Family Medicine 07/19/21 Defence Intelligence Analyst Relationship Specialty Start Date End Date Devika Arcos [address] [place] [address] PCP - General Family Medicine 07/19/21 Defence Intelligence Analyst Relationship Specialty Start Date End Date Devika Arcos [address] [place] [address] PCP - General Family Medicine 07/19/21 Team [...] Ju ly 2024 End: October 08, 2024 Defence Intelligence Analyst Relationship Specialty Start Date End Date Devika Arcos [address] [place] [address] PCP - General Family Medicine 07/19/21 Team [...] section and content) DATE CREATED AUTHOR 10/20/2024 [facility] DATE CREATED AUTHOR 'S ORGANIZ ATION 10/26/2024 [facility] FOR RECORDS PERTAINING TO PATIENTS WHO ARE [...] BE BASED ON THE PRIMARY CLINICAL RECORDS. [facility] [facility]. provides no warranty or guarantee of the accuracy or completeness of information in this document.
== END 2024-10-27 21:04 | disposition home or self-care (01) ==
PROVIDERS: Emergency Provider Emergency Medicine; PCP Family Medicine; Visit Provider Emergency Medicine
DX: D69.6 Thrombocytopenia, unspecified (principal); R79.9 Abnormal finding of blood chemistry, unspecified; I25.10 Atherosclerotic heart disease of native coronary artery without angina pectoris; E78.5 Hyperlipidemia, unspecified; I10 Essential (primary) hypertension; Z85.828 Personal history of other malignant neoplasm of skin; Z79.899 Other long term (current) drug therapy; Z95.5 Presence of coronary angioplasty implant and graft
CPT/HCPCS: 80048; 85025; 99283